=== PATIENT | female | born 1950 | race Caucasian/White ===

== ENCOUNTER 2023-03-12 09:45 | Outpatient (OUT) | payer MEDICARE, SELFPAY ==
[2023-03-12 10:38] LABS: Carbon Dioxide 24.4 mmol/L (21.0-32.0); Chloride 109 mmol/L (98-107); Estimated GFR (African America >60 (>=60); Estimated GFR (Non-African Ame 59 (>=60); Glucose 93 mg/dL (74-106); Potassium 4.4 mmol/L (3.5-5.1); Sodium 143 mmol/L (136-145)
== END 2023-03-12 09:46 | disposition home or self-care (01) ==
LOC: LAB 09:50
PROVIDERS: PCP Family Medicine; Visit Provider Nurse Practitioner
DX: I50.22 Chronic systolic (congestive) heart failure (principal)
CPT/HCPCS: 36415; 80048

== ENCOUNTER 2023-04-07 09:56 | Emergency (ER) | payer MEDICARE, SELFPAY ==
[2023-04-07 09:58] VITALS: BP 123/63; PULSE 64; RESP 16; TEMP 36.6; O2SAT 92; BMI 20.2
--- NOTE | 2023-04-07 09:59 | ED_ITS ---
HPI - General Adult General Chief complaint: Extremity Injury, Lower Stated complaint: FALL Time Seen by Provider: 04/07/23 09:59 History of Present Illness HPI narrative: Patient presents to the emergency department complaining of right hip pain. Patient states she fell yesterday morning down the last step. She did hit the back of her head to the right side of her face and was able to get up after 30 minutes. She states she is having difficulty bearing weight because of pain to the right hip. She denies any loss of conscious. She denies any paresthesias, or weakness. She denies any neck pain. She denies any nausea, vomiting, diarrhea, constipation, or abdominal pain. She denies any flank pain, hematuria, dysuria. She denies any other injury. Related Data Home Medications Medication Instructions Recorded Confirmed aspirin 81 mg chewable tablet 1 tab PO DAILY 04/07/23 04/07/23 atorvastatin 80 mg tablet 80 mg PO DAILY 04/07/23 04/07/23 carvedilol 12.5 mg tablet 12.5 mg PO BID 04/07/23 04/07/23 fluticasone fur. 100 mcg-umeclid 1 inh inhalation DAILY 04/07/23 04/07/23 62.5 mcg-vilant 25 mcg inhalat.powder (Trelegy Ellipta) furosemide 20 mg tablet 20 mg PO DAILY 04/07/23 04/07/23 ipratropium bromide 21 mcg (0.03 2 spray intranasal BID 04/07/23 04/07/23 %) nasal spray levothyroxine 100 mcg tablet 100 mcg PO DAILY 04/07/23 04/07/23 lisinopril 20 mg tablet 20 mg PO DAILY 04/07/23 04/07/23 pantoprazole 40 mg tablet,delayed 40 mg PO DAILY 04/07/23 04/07/23 release potassium chloride 10 mEq 10 meq PO DAILY 04/07/23 04/07/23 tablet,extended release prednisolone acetate 1 % eye 1 drp ophthalmic (eye) DAILY 04/07/23 04/07/23 drops,suspension sertraline 100 mg tablet 100 mg PO DAILY 04/07/23 04/07/23 spironolactone 25 mg tablet 25 mg PO DAILY 04/07/23 04/07/23 tizanidine 4 mg tablet 4 mg PO Q8H PRN muscle spasticity 04/07/23 04/07/23 Previous Rx's Medication Instructions Recorded ciprofloxacin HCl 500 mg tablet 500 mg PO BID #20 tabs 04/07/23 (Cipro) hydrocodone 5 mg-acetaminophen 325 1 tab PO Q6H PRN pain 5 days #20 04/07/23 mg tablet tabs metronidazole 500 mg tablet 500 mg PO BID 14 days #28 tabs 04/07/23 Allergies Allergy/AdvReac Type Severity Reaction Status Date / Time tetanus and diphtheria Allergy Intermediate Verified 04/07/23 10:10 toxoids Review of Systems ROS Status of ROS 10 or more systems reviewed and unremarkable except as noted in history and below [facility] Medical History (Updated 04/07/23 @ 13:33 by Jamila Tristan MD) Surgical History (Updated 04/07/23 @ 10:16 by Thelma Murray) Social History Smoking status: Current every day smoker Exam Narrative Exam Narrative: Nurses notes and vital signs reviewed and patient is not hypoxic. General: Nontoxic, Chronically ill, and in no apparent distress. Skin: Warm, dry, no pallor noted. No Rash Head: Normocephalic, Right occipital area pinpoint laceration, non suturable, no step-offs. Neck: Supple, non-tender. Eye: Pupils are equal, round and EOMI. No scleral icterus. Ears, Nose, Mouth, and Throat: TM clear, No hemotympanum,no posterior oropharynx erythema or nasal mucosal hypertrophy, uvula is mid-line Oral mucosa is moist. Right jaw 2 cm abrasion. There are no step-offs. No malocclusion. No loose dentition. Cardiovascular: Regular Rate and Rhythm without murmur, gallop or rub. Respiratory: No accessory muscle use or respiratory distress. Lungs are clear to auscultation, no wheezing, rales or rhonchi Chest Wall: no tenderness Back: No midline thoracic or lumbar vertebral tenderness. No CVA tenderness Musculoskeletal: moderate palpation to the left anterior posterior hip, no ecchymosis, DP+2, TP+2, capillary refill is brisk. ROM limited by pain, no calf or popliteal tenderness, no lower extremity edema/swelling GI: Abdomen is soft, non-distended. Normal bowel sounds. No tenderness to palpation. No rebound, guarding, or rigidity noted. Neurological: A&O x4. No cranial nerve dysfunction observed. No truncal ataxia. Moves all extremities. Sensation intact. Psychiatric: Cooperative and interactive. Normal mood and affect. Constitutional Vital Signs, click to edit/add: Last Vital Signs Temp 97.9 F 04/07/23 09:58 Pulse 64 04/07/23 09:58 Resp 16 04/07/23 09:58 BP 123/63 04/07/23 09:58 Pulse Ox 92 L 04/07/23 09:58 O2 Del Method Room Air 04/07/23 09:58 Course Vital Signs Vital signs: Vital Signs Temperature 97.9 F 04/07/23 09:58 Pulse Rate 64 04/07/23 09:58 Respiratory Rate 16 04/07/23 09:58 Blood Pressure 123/63 04/07/23 09:58 Pulse Oximetry 92 L 04/07/23 09:58 Oxygen Delivery Method Room Air 04/07/23 09:58 Temperature 97.9 F 04/07/23 09:58 Pulse Rate 64 04/07/23 09:58 Respiratory Rate 16 04/07/23 09:58 Blood Pressure 123/63 04/07/23 09:58 Pulse Oximetry 92 L 04/07/23 09:58 Oxygen Delivery Method Room Air 04/07/23 09:58 Medical Decision Making MDM Narrative Medical decision making narrative: Patient was given IV fluids, and morphine. This helped her pain. Lab studies were done. Patient's hemoglobin is stable. CT scan abdomen and pelvis shows fracture of pubic my, nondisplaced. Patient also has diverticulitis. The patient was discussed with Dr. Davis who is the orthopedic surgeon neonatal intensive care unit nurse who advised the patient can be weightbearing as tolerated with a walker and pain control. He follow-up with him as an outpatient next week.The patient was given [place] for pain she has tolerated before. The patient was treated with Cipro and Flagyl by mouth for CT scan findings of diverticulitis. The patient is nontoxic, abdomen is benign and nonsurgical. She did not even complain of abdominal pain was an incidental finding. At this time the patient is without objective evidence of an acute process requiring hospitalization or inpatient management. The patient has remained hemodynamically stable. No additional indication for emergent studies at this time. I answered all questions. Discussed discharge instructions including standard anticipatory guidance and what should prompt a return to the emergency department, including if they get worse are not getting better or develops any new or concerning symptoms. I've given them specific time frame in which to follow-up, and who to follow-up with. The patient demonstrates understanding. Patient is nontoxic and stable for discharge with outpatient follow-up. This note was created with the assistance of a speech recognition program. Although the intention is to generate documents that actually reflects the content of the visit, no guarantees can be provided that every mistake has been identified and corrected by editing. Lab Data Lab results reviewed: Yes I reviewed the patient's lab results Labs: Lab Results 04/07/23 Range/Units 10:50 WBC 9.3 (4.0-11.0) 10^3/uL RBC 3.77 L (4.20-5.40) 10^6/uL Hgb 10.7 L (12.0-16.0) g/dL Hct 32.2 L (36.0-48.0) % MCV 85.4 (81.0-99.0) fL MCH 28.4 (26.7-34.0) pg MCHC 33.2 (29.9-35.2) g/dL RDW 16.7 H (11.0-15.0) % Plt Count 200 (150-450) 10^3/uL MPV 11.6 (9.5-13.5) fL Neut % (Auto) 77.9 H (43.0-75.0) % Lymph % (Auto) 15.3 L (20.5-60.0) % [place] % (Auto) 5.8 (1.7-12.0) % Eos % (Auto) 0.3 L (0.9-7.0) % Baso % (Auto) 0.3 (0.2-2.0) % Neut # (Auto) 7.2 H (1.4-6.5) 10^3/uL Lymph # (Auto) 1.4 (1.2-3.8) 10^3/uL [place] # (Auto) 0.5 (0.3-0.8) 10^3/uL Eos # (Auto) 0.0 (0.0-0.7) 10^3/uL Baso # (Auto) 0.0 (0.0-0.1) 10^3/uL Abs Immat Gran (auto) 0.04 H (0.00-0.03) 10^3/uL Imm/Tot Granulo (auto) 0.4 (0.0-0.5) % Sodium 140 (136-145) mmol/L Potassium 3.3 L (3.5-5.1) mmol/L Chloride 103 (98-107) mmol/L Carbon Dioxide 27.3 (21.0-32.0) mmol/L Anion Gap 13.0 BUN 20.0 H (7.0-18.0) mg/dL Creatinine 1.05 H (0.55-1.02) mg/dL Est GFR ( Amer) >60 (>=60) Est GFR (Non-Af Amer) 51 L (>=60) BUN/Creatinine Ratio 19.0 Glucose 109 H (74-106) mg/dL Calcium 9.7 (8.5-10.1) mg/dL Total Bilirubin 1.0 (0.2-1.0) mg/dL AST 27 (15-37) U/L ALT 34 (14-59) U/L Alkaline Phosphatase 92 (46-116) U/L Total Protein 6.8 (6.4-8.2) g/dL Albumin 3.4 (3.4-5.0) g/dL Globulin 3.4 g/dL Albumin/Globulin Ratio 1.0 Discharge Plan Discharge Chief Complaint: Extremity Injury, Lower Clinical Impression: Fracture of pubic ramus, Diverticulitis, Abrasion Patient Disposition: Home, Self-Care Time of Disposition Decision: 13:33 Condition: Good Mode of Transportation: Private Vehicle Prescriptions / Home Meds: New ciprofloxacin HCl [Cipro] 500 mg tablet 500 mg PO BID Qty: 20 0RF metronidazole 500 mg tablet 500 mg PO BID 14 Days Qty: 28 0RF hydrocodone-acetaminophen 5-325 mg tablet 1 tab PO Q6H PRN (Reason: pain) 5 Days Qty: 20 0RF No Action aspirin 81 mg tablet,chewable 1 tab PO DAILY atorvastatin 80 mg tablet 80 mg PO DAILY carvedilol 12.5 mg tablet 12.5 mg PO BID Trelegy Ellipta 100-62.5-25 mcg blister with device 1 inh INHALATION DAILY furosemide 20 mg tablet 20 mg PO DAILY ipratropium bromide 21 mcg (0.03 %) spray,non-aerosol 2 spray INTRANASAL BID levothyroxine 100 mcg tablet 100 mcg PO DAILY lisinopril 20 mg tablet 20 mg PO DAILY pantoprazole 40 mg tablet,delayed release (DR/EC) 40 mg PO DAILY potassium chloride 10 mEq tablet extended release 10 meq PO DAILY prednisolone acetate 1 % drops,suspension 1 drp OPHTHALMIC (EYE) DAILY sertraline 100 mg tablet 100 mg PO DAILY spironolactone 25 mg tablet 25 mg PO DAILY tizanidine 4 mg tablet 4 mg PO Q8H PRN (Reason: muscle spasticity) Instructions: Diverticulitis (ED), Pelvic Fracture (ED) Stand Alone Forms: Portal Instructions Referrals: Jered Riojas MD [Primary Care Provider] - 1 week JON ARDON [Physician] - 1 week Discharge Date/Time: 04/07/23 14:08
--- NOTE | 2023-04-07 10:12 | XR_ITS ---
The [address] [address] Patient Name: DAREK HINOJOSA MRN: [id number] date: 1950 Sex: F Assigned Patient Location: ER Current Patient Location: ER Accession/Order Number: [id number] Exam Date: 04/07/2023 10:40 Report Date: 04/07/2023 11:19 At the request of: AARON FONG Procedure: XR hip RT min 2V EXAM: XR hip RT min 2V HISTORY: pain, fall COMPARISON: None. TECHNIQUE: 2 views of the right hip FINDINGS: There is moderate right hip osteoarthritis. No acute fracture or dissection. The soft tissue is unremarkable. XR/XR hip RT min 2V IMPRESSION: No acute process. Electronically authenticated by: JEROD RODRIGUEZ Date: 04/07/2023 11:19
[2023-04-07 10:58] LABS: Basophils Percent Auto 0.3 % (0.2-2.0); Eosinophils Percent Auto 0.3 % (0.9-7.0); Hematocrit 32.2 % (36.0-48.0); Hemoglobin 10.7 g/dL (12.0-16.0); Immature Granulocytes Abs Auto 0.04 10^3/uL (0.00-0.03); Immature Granulocytes Pct Auto 0.4 % (0.0-0.5); Lymphocytes Absolute Auto 1.4 10^3/uL (1.2-3.8); Lymphocytes Percent Auto 15.3 % (20.5-60.0); Mean Corpuscular HGB Conc 33.2 g/dL (29.9-35.2); Mean Corpuscular Hemoglobin 28.4 pg (26.7-34.0); Mean Corpuscular Volume 85.4 fL (81.0-99.0); Mean Platelet Volume 11.6 fL (9.5-13.5); Monocytes Absolute Auto 0.5 10^3/uL (0.3-0.8); Monocytes Percent Auto 5.8 % (1.7-12.0); Neutrophils Absolute Auto 7.2 10^3/uL (1.4-6.5); Neutrophils Percent Auto 77.9 % (43.0-75.0); Platelet Count 200 10^3/uL (150-450); Red Blood Count 3.77 10^6/uL (4.20-5.40); Red Cell Distribution Width 16.7 % (11.0-15.0); White Blood Count 9.3 10^3/uL (4.0-11.0)
--- NOTE | 2023-04-07 11:23 | CT_ITS ---
[address] [address] Patient Name: DAREK HINOJOSA MRN: [id number] date: 1950 Sex: F Assigned Patient Location: ER Current Patient Location: ER Accession/Order Number: [id number] Exam Date: 04/07/2023 11:35 Report Date: 04/07/2023 12:14 At the request of: AARON FONG Procedure: CT abdomen pelvis wo con EXAMINATION: CT abdomen pelvis wo con, 04/07/2023 11:35 AM EDT HISTORY: Right hip pain, fall, unable to bear weight COMPARISON: 01/09/2020 TECHNIQUE: CT scan of the abdomen and pelvis was performed without IV contrast. CT dose reduction technique was used, including Automated Exposure Control. FINDINGS: LOWER CHEST: There is bibasilar subsegmental atelectasis. LIVER: Unremarkable. GALLBLADDER AND BILIARY SYSTEM: Status post cholecystectomy. The common bile duct measures up to 9 mm. No intrahepatic biliary ductal dilatation.. SPLEEN: Unremarkable. PANCREAS: Unremarkable. ADRENAL GLANDS: There is a 1.6 x 1.0 cm indeterminate right adrenal nodule. 1.5 x 1.0 cm left adrenal nodule which is indeterminate. There is a 1 cm left adrenal nodule which measures less than 10 Hounsfield units and has imaging features of an adenoma. KIDNEYS AND URETERS: No nephrolithiasis or hydronephrosis. No ureteral calculus. BLADDER: Unremarkable. GASTROINTESTINAL TRACT: There is colonic diverticulosis with focal wall thickening and inflammatory changes involving the mid descending colon compatible with acute diverticulitis. No extraluminal air or fluid collections. The appendix is not clearly identified. VASCULATURE: Atherosclerotic calcification of the abdominal aorta without aneurysmal dilatation. RETROPERITONEUM: No lymphadenopathy. PERITONEUM/MESENTERY: No abdominal ascites. No free air. PELVIS: No pelvic ascites or lymphadenopathy. BODY WALL: There is a small right paracentral ventral hernia containing a nonobstructed portion of small bowel. BONES: There is an acute fracture involving the right inferior pubic ramus in 2 locations with mild displacement. No hip fracture is seen. Dysplastic bump at the femoral head neck junctions bilaterally which can be seen with cam-type femoral acetabular impingement. Multilevel degenerative changes and extra scoliosis of the lumbar spine. Mild compression deformity of L3. CT/CT abdomen pelvis wo con IMPRESSION: 1. Acute mildly displaced fracture involving the right inferior pubic ramus in 2 locations. 2. Acute diverticulitis involving the mid descending colon. No extraluminal air or fluid collections. 3. Bilateral indeterminate adrenal nodules. These nodules appear unchanged since 01/09/2020 and likely represent adenomas. 4. Small right paracentral ventral hernia containing nonobstructed portion of small bowel. 5. Multilevel degenerative changes of the lumbar spine with dextroscoliosis. Mild compression deformity of L3. Electronically authenticated by: ABBY FRAUSTO Date: 04/07/2023 12:14
[2023-04-07 11:50] LABS: Alanine Aminotransferase 34 U/L (14-59); Albumin Level 3.4 g/dL (3.4-5.0); Alkaline Phosphatase 92 U/L (46-116); Aspartate Amino Transferase 27 U/L (15-37); Calcium 9.7 mg/dL (8.5-10.1); Carbon Dioxide 27.3 mmol/L (21.0-32.0); Chloride 103 mmol/L (98-107); Estimated GFR (African America >60 (>=60); Estimated GFR (Non-African Ame 51 (>=60); Globulin 3.4 g/dL; Glucose 109 mg/dL (74-106); Potassium 3.3 mmol/L (3.5-5.1); Total Protein 6.8 g/dL (6.4-8.2)
[2023-04-07 11:51] LABS: Sodium 140 mmol/L (136-145)
== END 2023-04-07 14:08 | disposition home or self-care (01) ==
PROVIDERS: Emergency Provider Emergency Medicine; PCP Family Medicine
DX: S32.591A Other specified fracture of right pubis, initial encounter for closed fracture (principal); S00.81XA Abrasion of other part of head, initial encounter; W10.9XXA Fall (on) (from) unspecified stairs and steps, initial encounter; Z79.82 Long term (current) use of aspirin; Z79.899 Other long term (current) drug therapy; Z79.890 Hormone replacement therapy; F17.210 Nicotine dependence, cigarettes, uncomplicated
CPT/HCPCS: 36415; 73502; 74176; 80053; 85025; 99285

== ENCOUNTER 2023-07-02 13:51 | Outpatient (OUT) | payer MEDICARE, SELFPAY ==
--- NOTE | 2023-07-02 | ECG_ITS ---
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
--- NOTE | 2023-07-02 16:21 | CA_ITS ---
Patient: DAREK HINOJOSA Exam Date: 07/02/2023 : 1950 Gender:F Ordering : DR JAMES CARVALHO M.D. Admission #: [id number] Family : Jered Riojas . Order #: [id number] CLICK HERE TO VIEW EXAM ECHOCARDIOGRAM REPORT PROCEDURE: CA ECHO DOPPLER COMPLETE INDICATIONS: Chronic systolic heart failure COMPARISON: None. DESCRIPTION: COMPLETE ECHOCARDIOGRAM Real-time transthoracic echocardiography with 2D, M-mode, spectral and color flow Doppler performed. QUALITY: Technical quality was good. LEFT VENTRICLE: Mild dilatation. Mild concentric left ventricular hypertrophy. LV EF: Global left ventricular systolic function is difficult to assess due to underlying rhythm; ejection fraction is estimated to be 50-55%. Abnormal septal motion; may be related to underlying bundle branch block. DIASTOLIC: Not adequately assessed due to heart rhythm. ATRIAL SEPTUM: Inadequately seen. LEFT ATRIUM: Severe dilatation. RIGHT ATRIUM: Mild dilatation. RIGHT VENTRICLE: Mild dilatation. Normal right ventricular systolic function. TRICUSPID VALVE: Normal mobility and thickness. Mild to moderate regurgitation. Moderate pulmonary hypertension. RVSP 58mmHg MITRAL VALVE: Mildly thickened with normal mobility. No evidence of mitral valve stenosis. Mild mitral annular calcification. Moderate mitral regurgitation. AORTIC VALVE: Bio-Prosthetic valve appears well seated in the aortic position with abnormal Doppler flow. DVI 0.24, Vmax 3.8m/s, Mean gradient 31mmHg.No aortic regurgitation. AORTIC ROOT: Normal diameter and appearance. PULMONIC VALVE: Normal thickness and mobility. No stenosis. Mild regurgitation. PERICARDIUM: No evidence of pericardial effusion. IVC: Collapses with inspirations. Mild dilatation at 2.2cm CONCLUSION: 1. Global left ventricular systolic function is difficult to assess but appears preserved 2. Mildly increased left ventricular wall thickness 3. Biatrial enlargement 4. The right ventricle is mildly dilated with normal systolic function 5. Mild to moderate tricuspid regurgitation 6. Moderately elevated right ventricular systolic pressure; RVSP 58 mmHg 7. Moderate mitral regurgitation 8. 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 Mild pulmonary regurgitation The patient's rhythm was irregular throughout; the clinic provided instructions to the patient for follow-up. Adult Echocardiography Procedure Report Left Ventricle LVEDD (3.7 - 5.6 cm): 5.55 cm LVESD (2.2 - 4.0 cm): 4.16 cm LVIVS thickness (0.6 - 1.2 cm): 1.16 cm LVPW thickness (0.5 - 1.0 cm): 1.27 cm e': 0.13 m/s E - e': 7.50 LVOT Max Gradient: 3.37 mm[Hg], 3.32 mm[Hg] LVOT Area (cm2): 0.91 m/s Peak Velocity (LVOT): 0.92 m/s, 0.91 m/s Mean Velocity (LVOT): 0.63 m/s LVOT Diameter 2.24 cm Left Ventricular Ejection Fraction: 51.85 % Left Atrium LA Volume Index (2D A2C): 92.76 ml/m2 Left Atrium Systolic Dimension: 5.03 cm Mitral Valve MV E to A Ratio: 84.92 Mitral Valve A-Wave Peak Velocity: 0.01 m/s Mitral Valve E-Wave Peak Velocity: 0.96 m/s Right Ventricle RV Internal Diastolic Dimension: 4.82 cm Aorta AO Root Diam: 3.13 cm Ascending Ao Diam: 2.67 cm Aortic Valve AoV Area (Peak Nathaniel): 0.95 cm2, 0.87 cm2, 0.94 cm2, 1.15 cm2, 1.15 cm2, 1.15 cm2 AoV Area (VTI): 0.97 cm2, 0.89 cm2, 0.94 cm2 Peak Velocity(Antegrade Flow): 4.12 m/s, 3.80 m/s, 3.42 m/s, 3.78 m/s, 3.15 m/s, 3.11 m/s Peak Gradient(Antegrade Flow): 67.88 mm[Hg], 57.89 mm[Hg], 46.92 mm[Hg], 57.14 mm[Hg], 39.57 mm[Hg], 38.59 mm[Hg] Mean Velocity(Antegrade Flow): 2.83 m/s, 2.42 m/s, 2.44 m/s, 2.58 m/s Mean Gradient(Antegrade Flow): 36.31 mm[Hg], 26.71 mm[Hg], 26.44 mm[Hg], 30.58 mm[Hg] Velocity Time Integral: 98.07 cm, 90.55 cm, 81.41 cm, 86.28 cm Tricuspid Valve Peak Velocity (Regurgitant Flow): 3.51 m/s, 3.15 m/s, 3.09 m/s, 3.41 m/s Pulmonic Valve Mean Gradient: 3.20 mm[Hg], 4.02 mm[Hg] Mean Velocity: 0.84 m/s, 0.97 m/s Peak Velocity: 1.30 m/s, 0.75 m/s Peak Gradient: 2.27 mm[Hg], 6.78 mm[Hg], 6.78 mm[Hg] Right Atrium Right Atrium Systolic Pressure: 60.56 ml, 60.56 ml Dictated by: James Carvalho M.D. on 07/03/2023 at 09:32 Approved by: James Carvalho M.D. on 07/03/2023 at 09:37
== END 2023-07-02 13:52 | disposition home or self-care (01) ==
LOC: CARD 13:51
PROVIDERS: PCP Family Medicine; Visit Provider Internal Medicine Interventional Cardiology
DX: I50.22 Chronic systolic (congestive) heart failure (principal); S32.599A Other specified fracture of unspecified pubis, initial encounter for closed fracture; M81.0 Age-related osteoporosis without current pathological fracture; F17.219 Nicotine dependence, cigarettes, with unspecified nicotine-induced disorders; Z12.2 Encounter for screening for malignant neoplasm of respiratory organs
CPT/HCPCS: 71271; 77080; 93005; 93306

== ENCOUNTER 2023-07-02 15:16 | Outpatient (OUT) | payer MEDICARE, SELFPAY ==
--- NOTE | 2023-07-02 15:29 | CT_ITS ---
[address] [address] Patient Name: DAREK HINOJOSA MRN: [id number] date: 1950 Sex: F Assigned Patient Location: CT Current Patient Location: Accession/Order Number: [id number] Exam Date: 07/02/2023 15:47 Report Date: 07/03/2023 00:57 At the request of: YADIEL CORDOBA Procedure: CT lung screening low-dose EXAMINATION: CT lung screening low-dose HISTORY: Nicotine Dependence F17.219 COMPARISON: CT LUNG CANCER SCREENING 06/19/2022 TECHNIQUE: Axial, Coronal, and Sagittal images were created without the administration of IV contrast material. Dose reduction techniques were achieved by using automated exposure control and/or adjustment of mA and/or kV according to patient size and/or use of iterative reconstruction technique. FINDINGS: LUNGS: Moderate marked emphysematous changes. Patchy opacities and likely areas of air trapping scattered throughout the lungs. Mild bronchiectasis as well as bronchial wall thickening/bronchiolitis. PLEURA: No mass, effusion, or pneumothorax. VASCULATURE: No abnormality. LASHA: No mass or pathologic adenopathy. MEDIASTINUM: No mass or pathologic adenopathy. CARDIAC: Mild cardiomegaly and atherosclerotic coronary artery disease. No pericardial effusion. AORTA: Aortic valve replacement. No aneurysm. CHEST WALL: No mass or axillary adenopathy BONES: No bone lesion or fracture. LIMITED ABDOMEN: No suspicious findings. Limited images of the upper abdomen. OTHER: Negative. CT/CT lung screening low-dose IMPRESSION: 1. Lung-RADS Category 3- Probably benign. Probably benign finding(s)- short term follow up suggested; includes nodules with a low likelihood of becoming a clinically active cancer. Six month LDCT. Electronically authenticated by: VASU EVANS Date: 07/03/2023 00:57
== END 2023-07-02 15:17 | disposition home or self-care (01) ==
LOC: CT 15:17
PROVIDERS: PCP Family Medicine; Visit Provider Internal Medicine
DX: F17.219 Nicotine dependence, cigarettes, with unspecified nicotine-induced disorders (principal); Z12.2 Encounter for screening for malignant neoplasm of respiratory organs
CPT/HCPCS: 71271

== ENCOUNTER 2023-07-02 15:18 | Outpatient (OUT) | payer MEDICARE, SELFPAY ==
--- NOTE | 2023-07-02 15:28 | XR_ITS ---
The [address] [address] Patient Name: DAREK HINOJOSA MRN: [id number] date: 1950 Sex: F Assigned Patient Location: [facility] Current Patient Location: Accession/Order Number: [id number] Exam Date: 07/02/2023 15:47 Report Date: 07/03/2023 00:21 At the request of: MARY BEAUCHAMP Procedure: XR DEXA axial skeleton EXAMINATION: XR DEXA axial skeleton HISTORY: Other Specified Fracture Of Pubis COMPARISON: No relevant comparison available. TECHNIQUE: Dual-energy X-ray absorptiometry (DXA) was performed. FINDINGS: SPINE ANALYSIS: Average bone mineral density is 1.097 g/cm2. T-score (standard deviation relative to young adult mean): -0.7 . HIP ANALYSIS: Lowest bone mineral density is within the left femoral trochanter, 0.450 g/cm2. T-score (standard deviation relative to young adult mean): -3.5 . XR/XR DEXA axial skeleton IMPRESSION: [employer] Classification: Osteoporosis - High Fracture Risk Electronically authenticated by: VASU EVANS Date: 07/03/2023 00:21
== END 2023-07-02 15:19 | disposition home or self-care (01) ==
LOC: RAD 15:18
PROVIDERS: PCP Family Medicine; Visit Provider Nurse Practitioner Family
DX: S32.599A Other specified fracture of unspecified pubis, initial encounter for closed fracture (principal); M81.0 Age-related osteoporosis without current pathological fracture
CPT/HCPCS: 77080

== ENCOUNTER 2023-08-17 15:40 | Outpatient (OUT) | payer MEDICARE, SELFPAY ==
[2023-08-17 16:44] LABS: Anion Gap 11.7; BUN Creatinine Ratio 16.4; Calcium 9.8 mg/dL (8.5-10.1); Carbon Dioxide 27.5 mmol/L (21.0-32.0); Chloride 99 mmol/L (98-107); Estimated GFR (African America 59 (>=60); Estimated GFR (Non-African Ame 49 (>=60); Glucose 99 mg/dL (74-106); Potassium 3.2 mmol/L (3.5-5.1); Sodium 135 mmol/L (136-145)
== END 2023-08-17 15:41 | disposition home or self-care (01) ==
PROVIDERS: PCP Family Medicine; Visit Provider Internal Medicine Interventional Cardiology
DX: I50.40 Unspecified combined systolic (congestive) and diastolic (congestive) heart failure (principal)
CPT/HCPCS: 36415; 80048

== ENCOUNTER 2023-08-28 13:34 | Outpatient (OUT) | payer MEDICARE, SELFPAY | END 2023-08-28 13:35 | disposition home or self-care (01) | LOC: PST 13:34 | PROVIDERS: PCP Family Medicine; Visit Provider Surgery | DX: Z01.818 Encounter for other preprocedural examination (principal); K22.70 Barrett's esophagus without dysplasia; Z80.0 Family history of malignant neoplasm of digestive organs ==

== ENCOUNTER 2023-09-05 07:20 | Day surgery (SDC) | payer MEDICARE, SELFPAY ==
--- OUTSIDE RECORDS SUMMARY | 2023-09-05 07:22 | XMS_ITS | CCD ---
Author Name Unknown Address [address] [place] [address] [facility] Care Team Providers Care Hot Box Spotter Name Role Phone DUSTIN MCMAHON K Unavailable Unavailable SALOME, DUSTIN K Unavailable Unavailable HOY, KAYLEIGH M Unavailable Unavailable SALOME, DUSTIN K Unavailable Unavailable SALOME, DUSTIN K Unavailable Unavailable KAYLEIGH GAY M Unavailable Unavailable PHYSICIAN, DEFAULT Unavailable Unavailable PHYSICIAN, DEFAULT Unavailable Unavailable OLGA PARISI I Referring Unavailable KAYLEIGH GAY M Primary Care Unavailable ESTEBAN LÓPEZ HLia Admitting Unavailable ESTEBAN LÓPEZ HLia Attending Unavailable KAYLEIGH GAY M Primary Care Unavailable Kayleigh Gay MD Primary Care Provider [phone] Kayleigh Gay MD Unavailable KATIE V, ALEKSANDAR Referring Unavailable KATIE V, ALEKSANDAR Attending Unavailable KAYLEIGH GAY M Primary Care Unavailable KATIE V, ALEKSANDAR Referring Unavailable KELLY GAYLAS M Primary Care Unavailable KATIE V, ALEKSANDAR Admitting Unavailable KATIE V, ALEKSANDAR Referring Unavailable KATIE V, ALEKSANDAR Attending Unavailable KAYLEIGH GAY M Primary Care Unavailable KATIE V, ALEKSANDAR Referring Unavailable KAYLEIGH GAY M Primary Care Unavailable KATIE V, ALEKSANDAR Referring Unavailable DEIDRA KAYLEIGH M Primary Care Unavailable DEIDRA ., DR VICTOR Attending Unavailable HOY ., DR VICTOR Consulting Unavailable HOY ., DR VICTOR Primary Care Unavailable HOY ., DR VICTOR Admitting Unavailable HOY ., DR VICTOR Primary Care Unavailable HOY ., DR VICTOR Admitting Unavailable HOY ., DR VICTOR Attending Unavailable HOY ., DR VICTOR Consulting Unavailable HOY ., DR VICTOR Primary Care Unavailable HOY ., DR VICTOR Admitting Unavailable HOY ., DR VICTOR Attending Unavailable HOY ., DR VICTOR Consulting Unavailable ADRI, HAWA Consulting Unavailable ADRI, HAWA Admitting Unavailable HOY ., DR VICTOR Primary Care Unavailable ADRI, HAWA Attending Unavailable HOY ., DR VICTOR Primary Care Unavailable HOY ., DR VICTOR Admitting Unavailable HOY ., DR VICTOR Attending Unavailable HOY ., DR VICTOR Consulting Unavailable SAMSA ., YADIEL Admitting Unavailable SAMSA ., YADIEL Attending Unavailable HOY ., DR VICTOR Primary Care Unavailable ZIEBER, DR VASU Kemp Consulting Unavailable SAMSA ., YADIEL Consulting Unavailable HOY ., DR VICTOR Primary Care Unavailable HOY ., DR VICTOR Admitting Unavailable HOY ., DR VICTOR Attending Unavailable HOY ., DR VICTOR Consulting Unavailable ELTAHAWY, DR RAMIREZ Admitting Unavailable ELTAHAWY, DR RAMIREZ Attending Unavailable HOY ., DR VICTOR Primary Care Unavailable ELTAHAWY, DR RAMIREZ Consulting Unavailable ELTAHAWY, EHAB Attending Unavailable SANAULLAH, MAHAMED Referring Unavailable SANAULLAH, MAHAMED Referring Unavailable IVANIA, HANI Referring Unavailable ELTAHAWY, EHAB Referring Unavailable SHEILA, WHITNEY Admitting Unavailable IVANIA, HANI Attending Unavailable IVANIA, HANI Referring Unavailable SHEILA, WHITNEY Referring Unavailable ELTAHAWY, EHAB Attending Unavailable ADRI, HAWA Attending Unavailable ADRI, HAWA Attending Unavailable ELTAHAWY, EHAB Attending Unavailable Allergies Allergy Classification Reported Allergen(s) Allergy Type Date of Onset Reaction(s) Facility (7 sources) Allopurinol; Translations: [ALLOPURINOL] Drug Allergy 5 Intolerance [facility] (6 sources) diphtheria toxoid vaccine, inactivated / tetanus toxoid vaccine, inactivated; Translations: [TETANUS AND DIPHTHER. TOX (PF)] Drug Allergy 8 Intolerance [facility] (5 sources) Isosorbide; Translations: [ISOSORBIDE MONONITRATE] Drug Allergy 6 Intolerance [facility] (5 sources) tetanus toxoid vaccine, inactivated; Translations: [TETANUS TOXOID ADSORBED] Drug Allergy 5 Other: See Comments [facility] (1 source) Isosorbide Dinitrate; Translations: [ISOSORBIDE DINITRATE] Drug Allergy 6 [facility] (1 source) Spironolactone; Translations: [SPIRONOLACTONE ] Drug Allergy 3 [facility] (1 source) TETANUS VACCINES AND TOXOID; Translations: [TETANUS VACCINES AND TOXOID] Propensity to adverse reactions to drug (disorder) 5 [facility] Medications Current Medications Medication Drug Class(es) Dates Sig (Normalized) Sig (Original) benoxinate hydrochloride 4 mg/ml / fluorescein sodium 2.5 mg/ml ophthalmic solution (1 source) Diagnostic Dye Start: 08-15-2022 End: 08-16-2022 fluorescein-benoxi franca 0.25-0.4 % 1 Drop (FLURESS) phenylephrine hydrochloride 25 mg/ml ophthalmic solution (1 source) alpha-1 Adrenergic Agonist Start: 08-15-2022 End: 08-16-2022 PHENYLephrine 2.5 % 1 Drop (AK-DILATE, MENA-SYNEPHRINE) proparacaine hydrochloride 5 mg/ml ophthalmic solution (1 source) Local Anesthetic Start: 08-15-2022 End: 08-16-2022 proparacaine 0.5 % 1 Drop (ALCAINE) tropicamide 10 mg/ml ophthalmic solution (1 source) Anticholinergic Start: 08-15-2022 End: 08-16-2022 tropicamide 1 % 1 Drop (MYDRIACYL) Completed/Discontinued Medications Medication Drug Class(es) Dates Sig (Normalized) Sig (Original) aspirin 81 mg chewable tablet (4 sources) Platelet Aggregation Inhibitor, Nonsteroidal Anti-inflammatory Drug Start: 0 take 1 tablet by mouth once daily aspirin 81 mg chewable tablet CHEW AND SWALLOW 1 TABLET BY MOUTH ONCE DAILY. 90 tablet 0 01/23/2020 Active Comment on above: CHEW AND SWALLOW 1 T ABLET BY MOUTH ONCE DAILY. atorvastatin 40 mg oral tablet (4 sources) HMG-CoA Reductase Inhibitor Start: 8 atorvastatin (LIPITOR) 40 mg tablet Take by mouth q 24 HR. 0 03/20/2018 Active Comment on above: Take by mouth q 24 H R. carvedilol 12.5 mg oral tablet (4 sources) alpha-Adrenergic Jose, beta-Adrenergic Jose take 1 tablet by mouth twice daily carvedilol (COREG) 12.5 mg tablet carvedilol 12.5 mg tablet Take 1 tablet twice a day by oral route. 0 Active Comment on above: carvedilol 12.5 mg t ablet Take 1 tablet twice a day by oral route. cholecalciferol 0.05 mg oral capsule (4 sources) Vitamin D Start: 2 take 1 capsule by mouth once daily Cholecalciferol, Vitamin D3, 50 mcg (2,000 unit) cap cholecalciferol (vitamin D3) 50 mcg (2,000 unit) capsule TAKE 1 CAPSULE BY MOUTH EVERY DAY 0 05/09/2022 Active Comment on above: cholecalciferol (vit acosta D3) 50 mcg (2,000 unit) capsule TAKE 1 CAPSULE BY MOUTH EVERY DAY 30 actuat fluticasone furoate 0.1 mg/actuat / umeclidinium 0.0625 mg/actuat / vilanterol 0.025 mg/actuat dry powder inhaler (4 sources) Anticholinergic, Corticosteroid, beta2-Adrenergic Agonist Start: 2 take 1 puff(s) by mouth once daily TRELEGY ELLIPTA 100-62.5-25 mcg inhalation powder INHALE 1 PUFF BY MOUTH EVERYDAY *RINSE MOUTH AFTER USE* 0 07/21/2022 Active Comment on above: INHALE 1 PUFF BY RUEL TH EVERYDAY *RINSE MOUTH AFTER USE* furosemide 20 mg oral tablet (4 sources) Loop Diuretic Start: 0 take 1 tablet by mouth once daily furosemide (LASIX) 20 mg tablet TAKE 1 TABLET BY MOUTH ONCE DAILY FOR 7 DAYS. 7 tablet 0 01/23/2020 Active Comment on above: TAKE 1 TABLET BY RUEL TH ONCE DAILY FOR 7 DAYS. ketorolac tromethamine 5 mg/ml ophthalmic solution (2 sources) Nonsteroidal Anti-inflammatory Drug, Cyclooxygenase Inhibitor Start: 1 keTORolac (ACULAR) 0.5 % ophthalmic solution USE DIRECTED BY PHYSICIAN, IN OPERATIVE EYE, BEGINNING ONE DAY AFTER SURGERY 5 mL 0 04/12/2021 Active Comment on above: USE DIRECTED BY Isacc MÉNDEZ, IN OPERATIVE EYE, BEGINNING ONE DAY AFTER SURGERY liothyronine sodium 0.005 mg oral tablet (4 sources) l-Triiodothyronine Start: 2 take 2 tablets by mouth once daily liothyronine (CYTOMEL) 5 mcg tablet Take 10 mcg by mouth once daily. 0 07/25/2022 Active Comment on above: Take 10 mcg by mouth once daily. lisinopril 20 mg oral tablet (4 sources) Angiotensin Converting Enzyme Inhibitor Start: 2 lisinopril (ZESTRIL, PRINIVIL) 20 mg tablet pantoprazole 40 mg delayed release oral tablet (4 sources) Proton Pump Inhibitor Start: 8 take 1 tablet by mouth once daily pantoprazole DR (PROTONIX) 40 mg tablet pantoprazole 40 mg tablet,delayed release TAKE 1 TABLET BY MOUTH EVERY DAY 0 03/20/2018 Active Comment on above: pantoprazole 40 mg t ablet,delayed release TAKE 1 TABLET BY MOUTH EVERY DAY microencapsulated potassium chloride 10 meq extended release oral tablet (4 sources) potassium chlori de ER (K-DUR, KLOR-CON) 10 mEq tablet q 24 HR. 0 Active Comment on above: q 24 HR. prednisoLONE acetate 10 mg/ml ophthalmic suspension (4 sources) Corticosteroid Start: 1 prednisoLONE acetate (PRED FORTE, ECONOPRED PLUS) 1 % ophthalmic suspension USE DIRECTED BY PHYSICIAN, IN OPERATIVE EYE, BEGINNING ONE DAY AFTER SURGERY 5 mL 0 04/12/2021 Active Comment on above: USE DIRECTED BY P DEV, IN OPERATIVE EYE, BEGINNING ONE DAY AFTER SURGERY sertraline 100 mg oral tablet (4 sources) Serotonin Reuptake Inhibitor take 1 tablet by mouth once daily sertraline (ZOLOFT) 100 mg tablet Take 100 mg by mouth once daily. 0 Active Comment on above: Take 100 mg by mouth once daily. tiZANidine 4 mg oral tablet (4 sources) Central alpha-2 Adrenergic Agonist Start: 8 take 1 tablet by mouth three times daily tiZANidine (ZANAFLEX) 4 mg tablet tizanidine 4 mg tablet TAKE 1 TABLET BY MOUTH THREE TIMES DAILY 0 03/20/2018 Active Comment on above: tizanidine 4 mg tabl et TAKE 1 TABLET BY MOUTH THREE TIMES DAILY Problems Active Problems Problem Classification Problem Date Documented Date Episodic/Chronic Aortic; peripheral; 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; 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] Onset: 01-09-2020 01-22-2020 Chronic Cardiac dysrhythmias (2 sources) Unspecified atrial fibrillation; Translations: [Unspecified atrial fibrillation] Onset: 07-19-2023 Chronic Cardiac dysrhythmias (4 sources) Tachycardia, unspecified; Translations: [Bradycardia, unspecified] Onset: 12-01-2022 Episodic Cataract (10 sources) After-cataract of right eye; Translations: [Other secondary cataract, right eye] Onset: 04-13-2021 Chronic Chronic obstructive pulmonary disease and bronchiectasis (5 sources) Pulmonary emphysema; Translations: [Other emphysema] Onset: 06-19-2022 10-30-2022 Chronic Complication of device; implant or graft (10 sources) Arteriosclerosis of coronary artery bypass graft; Translations: [Atherosclerosis of coronary artery bypass graft(s), unspecified, with unspecified angina pectoris] Onset: 07-19-2015 01-22-2020 Chronic Congestive heart failure; nonhypertensive (12 sources) Congestive heart failure; Translations: [Heart failure, unspecified] Onset: 07-24-2015 08-29-2021 Chronic Coronary atherosclerosis and other heart disease (10 sources) Coronary atherosclerosis; Translations: [Atherosclerotic heart disease of [place] coronary artery without angina pectoris] Onset: 06-22-2015 06-22-2015 Chronic Disorders of lipid metabolism (7 sources) Hyperlipidemia; Translations: [Hyperlipidemia, unspecified] Onset: 07-24-2015 01-22-2020 Chronic Esophageal disorders (1 source) Gastroesophageal reflux disease; Translations: [Gastro-esophageal reflux disease without esophagitis] Onset: 10-30-2022 10-30-2022 Chronic Essential hypertension (10 sources) Essential hypertension; Translations: [Essential (primary) hypertension] Onset: 06-22-2015 01-22-2020 Chronic Heart valve disorders (15 sources) Aortic incompetence, non-rheumatic ; Translations: [Nonrheumatic aortic (valve) insufficiency] Onset: 01-09-2020 01-22-2020 Chronic Hypertension with complications and secondary hypertension (5 sources) Hypertensive heart disease with heart failure; Translations: [Hypertensive heart disease without heart failure] Onset: 08-20-2022 Chronic Nutritional deficiencies (5 sources) Moderate protein energy malnutrition; Translations: [Moderate protein-calorie malnutrition] Onset: 01-11-2020 01-22-2020 Chronic Other and ill-defined heart disease (4 sources) Mild left ventricular systolic dysfunction; Translations: [Other ill-defined heart diseases] Onset: 06-22-2015 06-22-2015 Chronic Other and ill-defined heart disease (2 sources) Other ill-defined heart diseases; Translations: [Other ill-defined heart diseases] Onset: 08-09-2022 Chronic Jennifer-; endo-; and myocarditis; cardiomyopathy (except that caused by tuberculosis or sexually transmitted disease) (2 sources) Cardiomyopathy in diseases classified elsewhere; Translations: [Cardiomyopathy in diseases classified elsewhere] Onset: 01-11-2023 Chronic Retinal detachments; defects; vascular occlusion; and retinopathy (1 source) Full thickness macular hole of right eye; Translations: [Macular cyst, hole, or pseudohole, right eye] Chronic Substance-related disorders (8 sources) Tobacco smoking behavior - finding; Translations: [Nicotine dependence, unspecified, uncomplicated] Onset: 06-22-2015 08-29-2021 Chronic Thyroid disorders (4 sources) Hypothyroidism, unspecified; Translations: [HYPOTHYROIDISM UNSPECIFIED] Onset: 11-30-2022 Chronic Unclassified (1 source) LEFT EYE MACULAR HOLE / LEFT EYE MACULAR HOLE() Onset: 12-11-2017 Unclassified (1 source) MACULAR HOLE RIGHT EYE / MACULAR HOLE RIGHT EYE() Onset: 10-23-2017 Unclassified (4 sources) SUMMARY Onset: 07-24-2015 08-29-2021 Unclassified (4 sources) DISPOSITION AND FOLLOW-UP Onset: 07-24-2015 08-29-2021 Past or Other Problems Problem Classification Problem Date Documented Da te Episodic/Chronic Administrative/social admission (4 sources) Patient encounter status; Translations: [Persons encountering health services in other specified circumstances] Onset: 01-15-2020 01-23-2020 Episodic Coronary atherosclerosis and other heart disease (2 sources) Presence of aortocoronary bypass graft; Translations: [Presence of aortocoronary bypass graft] Onset: 08-09-2022 Episodic Deficiency and other anemia (1 source) Anemia, unspecified; Translations: [ANEMIA UNSPECIFIED] Onset: 06-21-2022 Episodic Diabetes mellitus without complication (1 source) Other abnormal glucose; Translations: [OTHER ABNORMAL GLUCOSE] Onset: 06-21-2022 Episodic Fluid and electrolyte disorders (4 sources) Hypervolemia; Translations: [Fluid overload, unspecified] Onset: 07-23-2015 01-22-2020 Episodic Other lower respiratory disease (1 source) Dyspnea, unspecified; Translations: [DYSPNEA UNSPECIFIED] Onset: 06-21-2022 Episodic Pleurisy; pneumothorax; pulmonary collapse (8 sources) Atelectasis; Translations: [Atelectasis] Onset: 07-21-2015 01-22-2020 Episodic Unclassified (1 source) LEFT EYE MACULAR HOLE; Translations: [LEFT EYE MACULAR HOLE] Onset: 12-11-2017 Unclassified (1 source) MACULAR HOLE RIGHT EYE; Translations: [MACULAR HOLE RIGHT EYE] Onset: 10-23-2017 Results Test Name Value Interpretation Reference Range Facility 36on 08-17-2023 36 6 weeks s/p cardioversion would be 08/31/2023. Judy at Dr. Zhang' office made aware via fax. [facility] [address] Willian henderson' office called requesting Darek Coombs 3 days prior to EGD/colonscopy scheduled on 09/05/2023. Please advise. [facility] Office Visiton 08-01-2023 Follow-up visit [id number] Darek Mejía 1950 F Date Provider Department Center 08/01/2023 Areli-OPAL [facility] Family History Problem Relation Age of Onset Coronary artery disease Father Diabetes Father Family Status - Relation Status Age at Father Level of Service:85035 [place] OFFICE/OUTPATIENT ESTABLISHED HIGH MDM 40-54 MIN [facility] 30on 07-22-2023 30 Problem: Pain - Adul t Goal: Verbalizes/displays adequate comfort level or baseline comfort level Outcome: Progressing Problem: Safety - Adult Goal: Free from fall injury Outcome: Progressing Problem: Discharge Planning Goal: Discharge to home or other facility with appropriate resources Outcome: Progressing Problem: Chronic Conditions and Co-morbidities Goal: Patient's chronic conditions and co-morbidity symptoms are monitored and maintained or improved Outcome: Progressing Problem: Cardiovascular - Adult Goal: Maintains optimal cardiac output and hemodynamic stability Outcome: Progressing Goal: Absence of cardiac dysrhythmias or at baseline Outcome: Progressing [facility] 30 The patient is Moderately Stable - Low risk of patient condition declining or worsening The patient's goals for the shift include comfort The clinical goals for the shift include VSS, safety Problem: Safety - Adult Goal: Free from fall injury Outcome: Progressing Flowsheets (Taken 07/22/2023 0000) Free from fall injury: Assess patient frequently for physical needs Identify cognitive and physical deficits and behaviors that affect risk of falls Problem: Cardiovascular - Adult Goal: Maintains optimal cardiac output and hemodynamic stability Outcome: Progressing Goal: Absence of cardiac dysrhythmias or at baseline Outcome: Progressing Normal [facility] ANTI-XA (HEPARIN LEVEL)on HEPARIN UNFRACTIONATED (U/ML) IN PPP BY CHROMOGENIC METHOD 0.17 IU/mL Low 0.3-0.7 [facility] Comment on above: Result Comment: [place] roxaban and Apixaban will interfere with the anti Xa assay used to monitor UFH and LMWH. Performed By: #### L [id number] #### [facility] ([facility]) [address] [place] [address] HEPARIN UNFRACTIONATED (U/ML) IN PPP BY CHROMOGENIC METHOD 0.21 IU/mL Low 0.3-0.7 [facility] Comment on above: Result Comment: [place] roxaban and Apixaban will interfere with the anti Xa assay used to monitor UFH and LMWH. Performed By: #### L [id number] #### [facility] ([facility]) [address] [place] [address] CBCon 07-22-2023 Erythrocyte distribution width (RBC) [Ratio] 16.5 % High 11.5-15.0 [facility] Comment on above: Performed By: #### L [id number] #### [facility] ([facility]) [address] [place] [address] ERYTHROCYTE MEAN CORPUSCULAR HEMOGLOBIN CONCENTRATION (G/DL) BY AUTOMATED 32.0 g/dL Normal 32.0-35.0 [facility] Comment on above: Performed By: #### L [id number] #### [facility] ([facility]) [address] [place] [address] Hematocrit (Bld) [Volume fraction] 29.1 % Low 36.0-48.0 [facility] Comment on above: Performed By: #### L [id number] #### [facility] ([facility]) [address] [place] [address] Hemoglobin (Bld) [Mass/Vol] 9.3 g/dL Low 12.0-15.0 [facility] Comment on above: Performed By: #### L [id number] #### [facility] ([facility]) [address] [address] MCH (RBC) [Entitic mass] 27.0 pg Normal 27.0-33.0 [facility] Comment on above: Performed By: #### L [id number] #### [facility] ([facility]) [address] [place] [address] MCV (RBC) [Entitic vol] 84.6 fL Normal 82.0-98.0 [facility] Comment on above: Performed By: #### L [id number] #### [facility] ([facility]) [address] [place] [address] PLATELETS (10*3/UL) IN BLOOD AUTOMATED COUNT 202 10*3/uL Normal 150-400 [facility] Comment on above: Performed By: #### L [id number] #### [facility] ([facility]) [address] [place] [address] RBC (Bld) [#/Vol] 3.44 10*6/uL Low 3.80-5.00 [facility] Comment on above: Performed By: #### L [id number] #### [facility] ([facility]) [address] [place] [address] WBC (Bld) [#/Vol] 6.43 10*3/uL Normal 4.00-10.60 [facility] Comment on above: Performed By: #### L [id number] #### [facility] ([facility]) [address] [place] [address] 30on 07-21-2023 30 Problem: Pain - Adul t Goal: Verbalizes/displays adequate comfort level or baseline comfort level Outcome: Progressing Flowsheets (Taken 07/21/2023 0740) Verbalizes/displays adequate comfort level or baseline comfort level: Encourage patient to monitor pain and request assistance Assess pain using appropriate pain scale Administer analgesics based on type and severity of pain and evaluate response Implement non-pharmacological measures as appropriate and evaluate response Problem: Safety - Adult Goal: Free from fall injury Outcome: Progressing Flowsheets (Taken 07/21/2023741) Free from fall injury: Assess patient frequently for physical needs Identify cognitive and physical deficits and behaviors that affect risk of falls [place] fall precautions as indicated by assessment Educate patient/family on patient safety, including physical limitations Instruct patient to call for assistance with activity based on assessment Modify environment to reduce risk of injury Consider OT/PT consult to assist with strengthening/mobility Problem: Discharge Planning Goal: Discharge to home or other facility with appropriate resources Outcome: Progressing Flowsheets (Taken 07/21/2023739) Discharge to home or other facility with appropriate resources: Identify barriers to discharge with patient and caregiver Arrange for needed discharge resources and transportation as appropriate Identify discharge learning needs (meds, wound care, etc) Problem: Chronic Conditions and Co-morbidities Goal: Patient's chronic conditions and co-morbidity symptoms are monitored and maintained or improved Outcome: Progressing Flowsheets (Taken 07/21/2023739) Care Plan - Patient's Chronic Conditions and Co-Morbidity Symptoms are Monitored and Maintained or Improved: Monitor and assess patient's chronic conditions and comorbid symptoms for stability, deterioration, or improvement Collaborate with multidisciplinary team to address chronic and comorbid conditions and prevent exacerbation or deterioration Update acute care plan with appropriate goals if chronic or comorbid symptoms are exacerbated and prevent overall improvement and discharge Problem: Cardiovascular - Adult Goal: Maintains optimal cardiac output and hemodynamic stability Outcome: Progressing Flowsheets (Taken 07/21/2023739) Maintains optimal cardiac output and hemodynamic stability: Monitor blood pressure and heart rate Monitor urine output and notify Licensed Independent Practitioner for values outside of normal range Assess for signs of decreased cardiac output Goal: Absence of cardiac dysrhythmias or at baseline Outcome: Progressing Flowsheets (Taken 07/21/2023739) Absence of cardiac dysrhythmias or at baseline: Monitor cardiac rate and rhythm Assess for signs of decreased cardiac output The patient is Moderately Stable - Low risk of patient condition declining or worsening The patient's goals for the shift include comfort The clinical goals for the shift include VSS; safety Normal [facility] 30 The patient is Moderately Stable - Low risk of patient condition declining or worsening The patient's goals for the shift include comfort The clinical goals for the shift include VSS, safety Problem: Safety - Adult Goal: Free from fall injury Outcome: Progressing Flowsheets (Taken 07/21/2023 0300) Free from fall injury: Assess patient frequently for physical needs Problem: Cardiovascular - Adult Goal: Maintains optimal cardiac output and hemodynamic stability Outcome: Progressing Goal: Absence of cardiac dysrhythmias or at baseline Outcome: Not Progressing Normal [facility] ANTI-XA (HEPARIN LEVEL)on HEPARIN UNFRACTIONATED (U/ML) IN PPP BY CHROMOGENIC METHOD 0.14 IU/mL Invalid Interpretation Code 0.3-0.7 [facility] Comment on above: Result Comment: [place] roxaban and Apixaban will interfere with the anti Xa assay used to monitor UFH and LMWH. Performed By: #### L [id number] ####[facility] ([facility])[address] [place] [address] HEPARIN UNFRACTIONATED (U/ML) IN PPP BY CHROMOGENIC METHOD <0.10 Invalid Interpretation Code 0.3-0.7 [facility] Comment on above: Result Comment: Clotilde roxaban and Apixaban will interfere with the anti Xa assay used to monitor UFH and LMWH. Performed By: #### L [id number] ####[facility] ([facility])[address] [place] [address] HEPARIN UNFRACTIONATED (U/ML) IN PPP BY CHROMOGENIC METHOD <0.10 Invalid Interpretation Code 0.3-0.7 [facility] Comment on above: Order Comment: Check anti-Xa level every 6 hours while on heparin infusion, or per protocol. Result Comment: Clotilde roxaban and Apixaban will interfere with the anti Xa assay used to monitor UFH and LMWH. Performed By: #### L [id number] #### [facility] ([facility]) [address] [place] [address] B-TYPE NATRIURETIC PEPTIDEon 07-21-2023 Natriuretic peptide B (Bld) [Mass/Vol] 841 pg/mL High 0-100 [facility] Comment on above: Performed By: #### L [id number] #### [facility] ([facility]) [address] [place] [address] COMPREHENSIVE METABOLIC PANE Oscar 07-21-2023 Albumin [Mass/Vol] 2.9 g/dL Low 3.5-5.7 [facility] Comment on above: Performed By: #### L [id number] #### [facility] ([facility]) [address] [place] [address] ALP [Catalytic activity/Vol] 97 U/L Normal 34-104 [facility] Comment on above: Performed By: #### L [id number] #### [facility] ([facility]) [address] [place] [address] ALT [Catalytic activity/Vol] 12 U/L Normal 7-52 [facility] Comment on above: Performed By: #### L [id number] #### [facility] ([facility]) [address] [place] [address] Anion gap [Moles/Vol] 11 mmol/L Normal 7-20 [facility] Comment on above: Performed By: #### L [id number] #### [facility] ([facility]) [address] [place] [address] AST [Catalytic activity/Vol] 21 U/L Normal 13-39 [facility] Comment on above: Performed By: #### L [id number] #### [facility] ([facility]) [address] [place] [address] Bilirubin [Mass/Vol] 0.6 mg/dL Normal 0.3-1.0 [facility] Comment on above: Performed By: #### L [id number] #### [facility] ([facility]) [address] [place] [address] Calcium [Mass/Vol] 9.7 mg/dL Normal 8.6-10.3 [facility] Comment on above: Performed By: #### L [id number] #### [facility] ([facility]) [address] [place] [address] Chloride [Moles/Vol] 108 mmol/L High 98-107 [facility] Comment on above: Performed By: #### L [id number] #### [facility] ([facility]) [address] [place] [address] CO2 [Moles/Vol] 23 mmol/L Normal 21-31 [facility] Comment on above: Performed By: #### L [id number] #### [facility] ([facility]) [address] [place] [address] Creatinine [Mass/Vol] 0.68 mg/dL Normal 0.60-1.20 [facility] Comment on above: Performed By: #### L [id number] #### [facility] ([facility]) [address] [place] [address] GLOMERULAR FILTRATION RATE ML/MIN/1.73 SQ M.PREDICTED 91.3 mL/min/1.73m*2 Normal >60.0 [facility] Comment on above: Result Comment: The [facility]???s estimated glomerular filtration rate (eGFR) will no longer include consideration of race in its calculation. The National Kidney Foundation???s eGFR Task Force developed new recommendations for the estimation of the glomerular filtration rate in the [place] They recommend immediate implementation of the new equation refit without the race variable in all laboratories because the calculation does not include race. In addition to not including race in the calculation and reporting, it included diversity in its development, and has acceptable performance characteristics and potential consequences that do not disproportionately affect any one group of individuals. Performed By: #### L [id number] #### [facility] ([facility]) [address] [place] [address] Glucose [Mass/Vol] 92 mg/dL Normal 70-100 [facility] Comment on above: Performed By: #### L [id number] #### [facility] ([facility]) [address] [place] [address] Potassium [Moles/Vol] 3.8 mmol/L Normal 3.5-5.1 [facility] Comment on above: Performed By: #### L [id number] #### [facility] ([facility]) [address] [place] [address] Protein [Mass/Vol] 5.4 g/dL Low 6.0-8.3 [facility] Comment on above: Performed By: #### L [id number] #### [facility] ([facility]) [address] [place] [address] Sodium [Moles/Vol] 138 mmol/L Normal 136-145 [facility] Comment on above: Performed By: #### L [id number] #### [facility] ([facility]) [address] [place] [address] Urea nitrogen [Mass/Vol] 19 mg/dL Normal 7-25 [facility] Comment on above: Performed By: #### L [id number] #### [facility] ([facility]) [address] [place] [address] UREA NITROGEN/CREATININE (MASS RATIO) IN SER/PLAS 27.9 Normal [facility] Comment on above: Performed By: #### L [id number] #### [facility] ([facility]) [address] [place] [address] HEMOGLOBIN AND HEMATOCRIT, B LOODon 07-21-2023 Hematocrit (Bld) [Volume fraction] 29.9 % Low 36.0-48.0 [facility] Comment on above: Performed By: #### L [id number] #### [facility] ([facility]) [address] [place] [address] Hemoglobin (Bld) [Mass/Vol] 9.5 g/dL Low 12.0-15.0 [facility] Comment on above: Performed By: #### L [id number] #### [facility] ([facility]) [address] [place] [address] MAGNESIUMon 07-21-2023 Magnesium [Mass/Vol] 1.5 mg/dL Low 1.9-2.7 [facility] Comment on above: Performed By: #### L [id number] ####[facility] ([facility])[address] [place] [address] T3, FREEon 07-21-2023 TRIIODOTHYRONINE (T3) FREE (PG/ML) IN SER/PLAS 3.7 pg/mL Normal 2.5-3.9 [facility] Comment on above: Performed By: #### L [id number] #### [facility] ([facility]) [address] [place] [address] T4, FREEon 07-21-2023 THYROXINE (T4) FREE (NG/DL) IN SER/PLAS 1.14 ng/dL Normal 0.71-1.85 [facility] Comment on above: Performed By: #### L [id number] ####[facility] ([facility])[address] [place] [address] TROPONIN Ion 07-21-2023 Troponin I.cardiac [Mass/Vol] 0.04 ng/mL Normal 0.00-0.04 [facility] Comment on above: Performed By: #### L [id number] #### [facility] ([facility]) [address] [place] [place] [address] Troponin I.cardiac [Mass/Vol] 0.05 ng/mL High 0.00-0.04 [facility] Comment on above: Performed By: #### L [id number] ####[facility] ([facility])[address] [place] [address] VITAMIN D 1,25 DIHYDROXYon 1 09-20-2022 VITAMIN D 1,25-DIHYDROXY 32.9 pg/mL Normal 19.9-79.3 [facility] Comment on above: Result Comment: INTE RPRETIVE INFORMATION: Vitamin D, 1,25-Dihydroxy This test is primarily indicated during patient evaluation for hypercalcemia and renal failure. A normal result does not rule out Vitamin D deficiency. The recommended test for diagnosing Vitamin D deficiency is Vitamin D 25-hydroxy. Performed By: [facility] [address] [place] [id number] Call Center Support Consultant: Zeus Ventura MD, PhD CLIA Number: [id number] Performed By: #### L [id number] ####[facility] ([facility])[address] [place] [id number] VITAMIN D 25 HYDROXYon 07-21 CALCIDIOL (25 [place] VITAMIN D3) (NG/ML) IN SER/PLAS 23.2 ng/mL Low 30.0-80.0 [facility] Comment on above: Result Comment: >80. 0 Toxicity possible Performed By: #### L [id number] #### [facility] ([facility]) [address] [place] [address] 30on 07-20-2023 30 Daily Case Managemen t Update Multidisciplinary rounds have been completed. End of shift note. Per Progress Note/s: ER admit from straight [facility] office; new onset A-Fib. Heparin gtt. Cardiac Cath. AMITA. PT ordered; pending. OT recs Home. From Home. Diet: Dietary Orders (From admission, onward) Start Ordered 07/20/231512 Special Kitchen Request Once Comments: Chicken tenders and fries, diet coke, bbq sauce 07/20/23 1512 07/20/23 1512 Regular Diet Heart Healthy/HTN, CABG,Stroke, (2gNA, low fat, low cholesterol); HF/Cirrhosis/CKD/ESRD(2 gm NA) Diet effective now Question Answer Comment Room Service? Yes Fat restriction: Heart Healthy/HTN, CABG,Stroke, (2gNA, low fat, low cholesterol) Sodium restriction: HF/Cirrhosis/CKD/ESRD(2 gm NA) 07/20/23 1511 07/20/23 1401 Dietary nutrition supplements BID (breakfast and dinner); Boost Plus; Chocolate; Oral; 8 oz Until discontinued Question Answer Comment Deliver with BID breakfast and dinner Select supplement: Boost Plus Flavor Chocolate Route Oral Strength: 8 oz 07/20/23 1400 Physician Expected Discharge Date: 07/23/2023 Discharge Delays: PT Six Click Score: OT Six Click Score: 21 PT Recommendations: OT Recommendations: Home New Consults: Therapy Orders (From admission, onward) Start Ordered 07/19/232118 PT eval and treat Until therapy completed Question: Reason for PT? Answer: weakness 07/19/23211707/19/232118 OT eval and treat Until therapy completed Question: Reason for OT? Answer: fall 07/19/232117 Normal [facility] 30 Problem: Pain - Adul t Goal: Verbalizes/displays adequate comfort level or baseline comfort level Outcome: Progressing Flowsheets (Taken 07/20/2023 07) Verbalizes/displays adequate comfort level or baseline comfort level: Encourage patient to monitor pain and request assistance Assess pain using appropriate pain scale Administer analgesics based on type and severity of pain and evaluate response Implement non-pharmacological measures as appropriate and evaluate response Problem: Safety - Adult Goal: Free from fall injury Outcome: Progressing Flowsheets (Taken 07/20/2023 0753) Free from fall injury: Assess patient frequently for physical needs Identify cognitive and physical deficits and behaviors that affect risk of falls [place] fall precautions as indicated by assessment Educate patient/family on patient safety, including physical limitations Instruct patient to call for assistance with activity based on assessment Modify environment to reduce risk of injury Consider OT/PT consult to assist with strengthening/mobility Problem: Discharge Planning Goal: Discharge to home or other facility with appropriate resources Outcome: Progressing Flowsheets (Taken 07/20/2023 07) Discharge to home or other facility with appropriate resources: Identify barriers to discharge with patient and caregiver Arrange for needed discharge resources and transportation as appropriate Identify discharge learning needs (meds, wound care, etc) Problem: Chronic Conditions and Co-morbidities Goal: Patient's chronic conditions and co-morbidity symptoms are monitored and maintained or improved Outcome: Progressing Flowsheets (Taken 07/20/2023699) Care Plan - Patient's Chronic Conditions and Co-Morbidity Symptoms are Monitored and Maintained or Improved: Monitor and assess patient's chronic conditions and comorbid symptoms for stability, deterioration, or improvement Collaborate with multidisciplinary team to address chronic and comorbid conditions and prevent exacerbation or deterioration Update acute care plan with appropriate goals if chronic or comorbid symptoms are exacerbated and prevent overall improvement and discharge The patient is Moderately Stable - Low risk of patient condition declining or worsening The patient's goals for the shift include comfort The clinical goals for the shift include VSS; safety [facility] S[facility] 07-20-2023 MYKELS Patient: Darek Mejía Choose an anesthesia record to view details Clinical information reviewed: Allergies Meds Physical Exam Airway Mallampati: III Cardiovascular Rhythm: irregular Rate: normal Dental Pulmonary Breath sounds clear to auscultation Abdominal Anesthesia Plan ASA 3 other (Moderate sedation) Anesthetic plan and risks discussed with patient. Use of blood products discussed with patient who consented to blood products. Plan discussed with fellow and attending. Additional Equipment Requests Normal [facility] ANES Patient: Darek Mejía Choose an anesthesia record to view details Clinical information reviewed: Allergies Meds Physical Exam Airway Mallampati: III TM distance: >3 FB Neck ROM: full Cardiovascular Rhythm: irregular Rate: normal Dental Pulmonary - normal exam Breath sounds clear to auscultation Abdominal Abdomen: soft Anesthesia Plan ASA 4 other (Moderate sedation) Anesthetic plan and risks discussed with patient. Use of blood products discussed with patient who consented to blood products. Plan discussed with fellow and attending. Additional Equipment Requests Normal [facility] ANTI-XA (HEPARIN LEVEL)on HEPARIN UNFRACTIONATED (U/ML) IN PPP BY CHROMOGENIC METHOD <0.10 Invalid Interpretation Code 0.3-0.7 [facility] Comment on above: Order Comment: Check anti-Xa level every 6 hours while on heparin infusion, or per protocol. Result Comment: Clotilde roxaban and Apixaban will interfere with the anti Xa assay used to monitor UFH and LMWH. Performed By: #### L [id number] #### [facility] ([facility]) [address] [place] [address] CBCon 07-20-2023 Erythrocyte distribution width (RBC) [Ratio] 16.4 % High 11.5-15.0 [facility] Comment on above: Performed By: #### L [id number] #### [facility] ([facility]) [address] [place] [address] ERYTHROCYTE MEAN CORPUSCULAR HEMOGLOBIN CONCENTRATION (G/DL) BY AUTOMATED 32.2 g/dL Normal 32.0-35.0 [facility] Comment on above: Performed By: #### L [id number] #### [facility] ([facility]) [address] [place] [address] Hematocrit (Bld) [Volume fraction] 32.3 % Low 36.0-48.0 [facility] Comment on above: Performed By: #### L [id number] #### [facility] ([facility]) [address] [place] [address] Hemoglobin (Bld) [Mass/Vol] 10.4 g/dL Low 12.0-15.0 [facility] Comment on above: Performed By: #### L [id number] #### [facility] ([facility]) [address] [place] [address] MCH (RBC) [Entitic mass] 26.8 pg Low 27.0-33.0 [facility] Comment on above: Performed By: #### L [id number] #### [facility] ([facility]) [address] [place] [address] MCV (RBC) [Entitic vol] 83.2 fL Normal 82.0-98.0 [facility] Comment on above: Performed By: #### L [id number] #### [facility] ([facility]) [address] [place] [address] PLATELETS (10*3/UL) IN BLOOD AUTOMATED COUNT 262 10*3/uL Normal 150-400 [facility] Comment on above: Performed By: #### L [id number] #### [facility] ([facility]) [address] [place] [address] RBC (Bld) [#/Vol] 3.88 10*6/uL Normal 3.80-5.00 [facility] Comment on above: Performed By: #### L [id number] #### [facility] ([facility]) [address] [place] [address] WBC (Bld) [#/Vol] 5.76 10*3/uL Normal 4.00-10.60 [facility] Comment on above: Performed By: #### L [id number] #### [facility] ([facility]) [address] [place] [address] CONSULTon 07-20-2023 CONSULT --- Attestation signed by David Carias MD at 07/24/2023 10:07 AM By using the attestations below, the signing clinician agrees that I have read and verify that the documentation has been personally reviewed by me and ensure that the documentation accurately reflects the encounter. GC: I personally saw this patient on the day of the encounter, performed the madrigal portion(s) of the service and participated in the management and confirm the resident's documentation. Please note there may be an additional personal documentation from me. Cardiology Consult Note Reason for Consult: Afib / Bioprosthetic aortic valve stenosis HPI: Darek Mejía is a 73 y.o. female with PMH of CAD s/p CABG x5 and revision CABG in 2020 (CH-LAD, rSVG- Diagonal, SVG-OM, SVG-PDA-PLV), HFpEF, valvular disease s/p bioprosthetic AVR, Hypertension who presented as a direct admit from our cardiology office, she denied any cardiac symptoms, Her EKG showed possible Afib with heart rate fluctuating in between 40s & 120s , and her Echo showed Evidence of severe bioprosthetic valve stenosis with DVI < 0.24. She presented here for evaluation of her valve and Afib. Cardiology ROS: GENERAL: Denies fever, chills, night sweats, weight loss. CARDIOVASCULAR: Denies chest pain, exertional dyspnea, orthopnea/PND, lower extremity edema, palpitations, lightheadedness/dizzine ss, syncope. RESPIRATORY: Denies SOB, coughing, wheezing GI: Denies abdominal pain, nausea/vomiting. PSYCH: Denies anxiety. Past Medical History She has a past medical history of Coronary artery disease, Heart valve disease, and Hypertension. Surgical History She has a past surgical history that includes Cardiac catheterization; Coronary artery bypass graft; Cholecystectomy; Cervical spine surgery; Hysterectomy; and Mastectomy. Social History She reports that she has been smoking cigarettes. She has been smoking an average of .5 packs per day. She has never used smokeless tobacco. She reports current alcohol use. No history on file for drug use. Family History Family History Problem Relation Name Age of Onset Coronary artery disease Father Diabetes Father Allergies Tetanus vaccines and toxoid, Allopurinol, Spironolactone, Tetanus and diphther. tox (pf), and Isosorbide dinitrate Medications Medications Prior to Admission Medication Sig Dispense Refill Last Dose aspirin 81 mg chewable tablet Chew 1 tablet (81 mg) once daily as directed. 90 tablet 3 atorvastatin (Lipitor) 80 mg tablet TAKE 1 TABLET BY MOUTH EVERY DAY 90 tablet 3 carvedilol (Coreg) 12.5 mg tablet Take 1 tablet (12.5 mg) by mouth in the morning and at bedtime. 180 tablet 3 cholecalciferol, vitamin D3, 50 mcg (2,000 unit) capsule Take by mouth in the morning. furosemide (Lasix) 20 mg tablet Take 1 tablet (20 mg) by mouth in the morning. (Patient taking differently: Take 20 mg by mouth every other day.) 90 tablet 2 levothyroxine (Synthroid, Levoxyl) 100 mcg tablet Take 100 mcg by mouth in the morning. liothyronine (Cytomel) 25 mcg tablet Take 25 mcg by mouth in the morning. lisinopril 20 mg tablet Take 1 tablet (20 mg) by mouth in the morning. 90 tablet 3 nitroglycerin (Nitrostat) 0.4 mg SL tablet Sublingual pantoprazole (ProtoNix) 40 mg EC tablet Take 40 mg by mouth in the morning. potassium chloride CR (Klor-Con) 10 mEq ER tablet Take 10 mEq by mouth every other day. sertraline (Zoloft) 100 mg tablet Take 100 mg by mouth in the morning. spironolactone (Aldactone) 25 mg tablet Take 1 tablet (25 mg) by mouth in the morning. (Patient not taking: Reported on 07/19/2023) 90 tablet 3 tiZANidine (Zanaflex) 4 mg tablet Take 4 mg by mouth in the morning, afternoon, and at bedtime. Trelegy Ellipta 100-62.5-25 mcg blister with device Last Recorded Vitals Patient Vitals for the past 24 hrs: BP Temp Temp src Pulse Resp SpO2 Height Weight 07/20/23 0300 112/70 36.7 ???C (98.1 ???F) Temporal 106 22 91 % -- -- 07/20/23 0000 129/78 36.7 ???C (98 ???F) Temporal 110 (!) 31 91 % -- -- 07/19/232055 -- -- -- -- -- -- 1.702 m (5' 7 ) 54.6 kg (120 lb 5.9 oz) 07/19/232054 -- -- -- -- -- -- -- 54.6 kg (120 lb 5.9 oz) 07/19/232023 (!) 151/99 36.9 ???C (98.4 ???F) Temporal 108 20 -- -- -- Physical Examination: GENERAL: AOx3, in no acute distress. HEAD: Atraumatic, normocephalic. EYES: JUSTA, EOMI. NECK: No JVD present. CARDIAC: RRR. No murmur, rubs, or gallops. RESPIRATORY: CTAB, no increased effort of breathing. ABDOMEN: Soft, nontender, nondistended. EXTREMITIES: No lower extremity edema, peripheral pulses are 2+ bilaterally. NEURO: No focal deficits Relevant Lab Results @LABRESULTS@ No results found for this or any previous visit (from the past 4464 hour(s)). No results found for: CKTOTAL, CKMB, CKM (more content not included)... Normal [facility] HPon 07-20-2023 History Of Present Illness Darek Mejía is a 73 y.o. 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 The patient complains of symptoms of shortness of breath as well as chest discomfort. Echocardiogram showing severe aortic stenosis of about static valve based on DVI as well as gradients/velocities. She was transferred for heart catheterization and AMITA. Past Medical History She has a past medical history of Coronary artery disease, Heart valve disease, and Hypertension. Surgical History She has a past surgical history that includes Cardiac catheterization; Coronary artery bypass graft; Cholecystectomy; Cervical spine surgery; Hysterectomy; and Mastectomy. Social History She reports that she has been smoking cigarettes. She has been smoking an average of .5 packs per day. She has never used smokeless tobacco. She reports current alcohol use. No history on file for drug use. Allergies Tetanus vaccines and toxoid, Allopurinol, Spironolactone, Tetanus and diphther. tox (pf), and Isosorbide dinitrate Medications Medications Prior to Admission Medication Sig Dispense Refill Last Dose aspirin 81 mg chewable tablet Chew 1 tablet (81 mg) once daily as directed. 90 tablet 3 atorvastatin (Lipitor) 80 mg tablet TAKE 1 TABLET BY MOUTH EVERY DAY 90 tablet 3 carvedilol (Coreg) 12.5 mg tablet Take 1 tablet (12.5 mg) by mouth in the morning and at bedtime. 180 tablet 3 cholecalciferol, vitamin D3, 50 mcg (2,000 unit) capsule Take by mouth in the morning. furosemide (Lasix) 20 mg tablet Take 1 tablet (20 mg) by mouth in the morning. (Patient taking differently: Take 20 mg by mouth every other day.) 90 tablet 2 levothyroxine (Synthroid, Levoxyl) 100 mcg tablet Take 100 mcg by mouth in the morning. liothyronine (Cytomel) 25 mcg tablet Take 25 mcg by mouth in the morning. lisinopril 20 mg tablet Take 1 tablet (20 mg) by mouth in the morning. 90 tablet 3 nitroglycerin (Nitrostat) 0.4 mg SL tablet Sublingual pantoprazole (ProtoNix) 40 mg EC tablet Take 40 mg by mouth in the morning. potassium chloride CR (Klor-Con) 10 mEq ER tablet Take 10 mEq by mouth every other day. sertraline (Zoloft) 100 mg tablet Take 100 mg by mouth in the morning. spironolactone (Aldactone) 25 mg tablet Take 1 tablet (25 mg) by mouth in the morning. (Patient not taking: Reported on 07/19/2023) 90 tablet 3 tiZANidine (Zanaflex) 4 mg tablet Take 4 mg by mouth in the morning, afternoon, and at bedtime. Trelegy Ellipta 100-62.5-25 mcg blister with device Review of Systems All other systems reviewed and are negative. Physical Exam Vitals reviewed. HENT: Mouth/Throat: Mouth: Mucous membranes are moist. Pharynx: Oropharynx is clear. Eyes: Extraocular Movements: Extraocular movements intact. Conjunctiva/sclera: Conjunctivae normal. Cardiovascular: Rate and Rhythm: Tachycardia present. Rhythm irregular. Pulses: Normal pulses. Pulmonary: Effort: Pulmonary effort is normal. Abdominal: General: Abdomen is flat. Musculoskeletal: General: Normal range of motion. Skin: General: Skin is warm. Capillary Refill: Capillary refill takes less than 2 seconds. Neurological: General: No focal deficit present. Mental Status: She is alert. Mental status is at baseline. Psychiatric: Mood and Affect: Mood normal. Last Recorded Vitals Blood pressure (!) 163/104, pulse 109, temperature 37 ???C (98.6 ???F), temperature source Temporal, resp. rate 22, height 1.702 m (5' 7 ), weight 54.6 kg (120 lb 5.9 oz), SpO2 99 %. Relevant Results Reviewed Assessment/Plan Principal Problem: Atrial fibrillation (CMS/HCC) Active Problems: Acute heart failure with preserved ejection fraction (CMS/HCC) Nonrheumatic aortic valve stenosis Assessment: Chest pain and dyspnea New onset atrial fibrillation with RVR CAD status post CABG with revision in 2019 Aortic valve replacement, bioprosthetic, moderate severe stenosis Proximal aorta replacement Tricuspid valve repair Plan: Proceed with coronary angiogram and right heart cath as well as valve study to further evaluate symptoms Faith Hassan DO, MPH [employer] [facility] Normal [facility] HP H&P reviewed. The patient was examined and there are no changes to the H&P. [facility] ANTI-XA (HEPARIN LEVEL)on HEPARIN UNFRACTIONATED (U/ML) IN PPP BY CHROMOGENIC METHOD <0.10 Invalid Interpretation Code 0.3-0.7 [facility] Comment on above: Order Comment: Check anti-Xa level every 6 hours while on heparin infusion, or per protocol. Result Comment: [place] roxaban and Apixaban will interfere with the anti Xa assay used to monitor UFH and LMWH. Performed By: #### L [id number] #### [facility] ([facility]) [address] [place] [address] APTTon 07-19-2023 ACTIVATED PARTIAL THROMBOPLASTIN TIME IN PPP BY COAGULATION ASSAY 29.1 Seconds Normal 25.0-35.0 [facility] Comment on above: Order Comment: Basel ine aPTT before initiating heparin infusion. Result Comment: Clin ical significance of the APTT is questionable in the presence of heparin. Performed By: #### L [id number] ####[facility] ([facility])[address] [place] [address] CBC WITH AUTO DIFFERENTIALon 07-19-2023 Basophils (Bld) [#/Vol] 0.07 10*3/uL Normal 0.00-0.20 [facility] Comment on above: Performed By: #### L [id number] #### [facility] ([facility]) [address] [place] [address] Basophils/100 WBC (Bld) 1.1 % High 0.0-1.0 [facility] Comment on above: Performed By: #### L [id number] #### [facility] ([facility]) [address] [address] Eosinophils (Bld) [#/Vol] 0.10 10*3/uL Normal 0.00-0.50 [facility] Comment on above: Performed By: #### L [id number] #### [facility] ([facility]) [address] [place] [address] Eosinophils/100 WBC (Bld) 1.6 % Normal 0.0-6.0 [facility] Comment on above: Performed By: #### L [id number] #### [facility] ([facility]) [address] [place] [address] Erythrocyte distribution width (RBC) [Ratio] 16.4 % High 11.5-15.0 [facility] Comment on above: Performed By: #### L [id number] #### [facility] ([facility]) [address] [place] [address] ERYTHROCYTE MEAN CORPUSCULAR HEMOGLOBIN CONCENTRATION (G/DL) BY AUTOMATED 31.8 g/dL Low 32.0-35.0 [facility] Comment on above: Performed By: #### L [id number] #### [facility] ([facility]) [address] [place] [address] Hematocrit (Bld) [Volume fraction] 35.5 % Low 36.0-48.0 [facility] Comment on above: Performed By: #### L [id number] #### [facility] ([facility]) [address] [place] [address] Hemoglobin (Bld) [Mass/Vol] 11.3 g/dL Low 12.0-15.0 [facility] Comment on above: Performed By: #### L [id number] #### [facility] ([facility]) [address] [place] [address] Immature granulocytes (Bld) [#/Vol] 0.02 10*3/uL Normal 0.00-0.20 [facility] Comment on above: Performed By: #### L [id number] #### [facility] ([facility]) [address] [place] [address] Immature granulocytes/100 WBC (Bld) 0.3 % Normal 0.0-1.0 [facility] Comment on above: Performed By: #### L [id number] #### [facility] ([facility]) [address] [place] [address] Lymphocytes (Bld) [#/Vol] 1.76 10*3/uL Normal 1.20-4.00 [facility] Comment on above: Performed By: #### L [id number] #### [facility] ([facility]) [address] [address] Lymphocytes/100 WBC (Bld) 28.5 % Normal 20.0-45.0 [facility] Comment on above: Performed By: #### L [id number] #### [facility] ([facility]) [address] [place] [address] MCH (RBC) [Entitic mass] 26.9 pg Low 27.0-33.0 [facility] Comment on above: Performed By: #### L [id number] #### [facility] ([facility]) [address] [address] MCV (RBC) [Entitic vol] 84.5 fL Normal 82.0-98.0 [facility] Comment on above: Performed By: #### L [id number] #### [facility] ([facility]) [address] [place] [address] Monocytes (Bld) [#/Vol] 0.48 10*3/uL Normal 0.10-1.00 [facility] Comment on above: Performed By: #### L [id number] #### [facility] ([facility]) [address] [place] [address] Monocytes/100 WBC (Bld) 7.8 % Normal 5.0-12.0 [facility] Comment on above: Performed By: #### L [id number] #### [facility] ([facility]) [address] [place] [address] Neutrophils (Bld) [#/Vol] 3.74 10*3/uL Normal 1.60-7.60 [facility] Comment on above: Performed By: #### L [id number] #### [facility] ([facility]) [address] [place] [address] Neutrophils/100 WBC (Bld) 60.7 % Normal 40.0-72.0 [facility] Comment on above: Performed By: #### L [id number] #### [facility] ([facility]) [address] [place] [address] NRBC (PER 100 WBCS) BY AUTOMATED COUNT 0.0 % Normal 0 [facility] Comment on above: Performed By: #### L [id number] #### [facility] ([facility]) [address] [place] [address] PLATELETS (10*3/UL) IN BLOOD AUTOMATED COUNT 289 10*3/uL Normal 150-400 [facility] Comment on above: Performed By: #### L [id number] #### [facility] ([facility]) [address] [place] [address] RBC (Bld) [#/Vol] 4.20 10*6/uL Normal 3.80-5.00 [facility] Comment on above: Performed By: #### L [id number] #### [facility] ([facility]) [address] [place] [address] WBC (Bld) [#/Vol] 6.17 10*3/uL Normal 4.00-10.60 [facility] Comment on above: Performed By: #### L [id number] #### [facility] ([facility]) [address] [place] [address] COMPREHENSIVE METABOLIC PANE Oscar 07-19-2023 Albumin [Mass/Vol] 3.7 g/dL Normal 3.5-5.7 [facility] Comment on above: Performed By: #### L [id number] #### [facility] ([facility]) [address] [place] [address] ALP [Catalytic activity/Vol] 132 U/L High 34-104 [facility] Comment on above: Performed By: #### L [id number] #### [facility] ([facility]) [address] [place] [address] ALT [Catalytic activity/Vol] 17 U/L Normal 7-52 [facility] Comment on above: Performed By: #### L [id number] #### [facility] ([facility]) [address] [place] [address] Anion gap [Moles/Vol] 11 mmol/L Normal 7-20 [facility] Comment on above: Performed By: #### L [id number] #### [facility] ([facility]) [address] [place] [address] AST [Catalytic activity/Vol] 23 U/L Normal 13-39 [facility] Comment on above: Performed By: #### L [id number] #### [facility] ([facility]) [address] [place] [address] Bilirubin [Mass/Vol] 0.9 mg/dL Normal 0.3-1.0 [facility] Comment on above: Performed By: #### L [id number] #### [facility] ([facility]) [address] [place] [address] Calcium [Mass/Vol] 10.7 mg/dL High 8.6-10.3 [facility] Comment on above: Performed By: #### L [id number] #### [facility] ([facility]) [address] [place] [address] Chloride [Moles/Vol] 104 mmol/L Normal 98-107 [facility] Comment on above: Performed By: #### L [id number] #### [facility] ([facility]) [address] [place] [address] CO2 [Moles/Vol] 28 mmol/L Normal 21-31 [facility] Comment on above: Performed By: #### L [id number] #### [facility] ([facility]) [address] [place] [address] Creatinine [Mass/Vol] 0.66 mg/dL Normal 0.60-1.20 [facility] Comment on above: Performed By: #### L [id number] #### [facility] ([facility]) [address] [place] [address] GLOMERULAR FILTRATION RATE ML/MIN/1.73 SQ M.PREDICTED 92.0 mL/min/1.73m*2 Normal >60.0 [facility] Comment on above: Result Comment: [facility]???s estimated glomerular filtration rate (eGFR) will no longer include consideration of race in its calculation. The National Kidney Foundation???s eGFR Task Force developed new recommendations for the estimation of the glomerular filtration rate in the [place] They recommend immediate implementation of the new equation refit without the race variable in all laboratories because the calculation does not include race. In addition to not including race in the calculation and reporting, it included diversity in its development, and has acceptable performance characteristics and potential consequences that do not disproportionately affect any one group of individuals. Performed By: #### L [id number] #### [facility] ([facility]) [address] [place] [address] Glucose [Mass/Vol] 131 mg/dL High 70-100 [facility] Comment on above: Performed By: #### L [id number] #### [facility] ([facility]) [address] [place] [address] Potassium [Moles/Vol] 3.5 mmol/L Normal 3.5-5.1 [facility] Comment on above: Performed By: #### L [id number] #### [facility] ([facility]) [address] [place] [address] Protein [Mass/Vol] 6.8 g/dL Normal 6.0-8.3 [facility] Comment on above: Performed By: #### L [id number] #### [facility] ([facility]) [address] [place] [address] Sodium [Moles/Vol] 139 mmol/L Normal 136-145 [facility] Comment on above: Performed By: #### L [id number] #### [facility] ([facility]) [address] [place] [address] Urea nitrogen [Mass/Vol] 15 mg/dL Normal 7-25 [facility] Comment on above: Performed By: #### L [id number] #### [facility] ([facility]) [address] [place] [address] UREA NITROGEN/CREATININE (MASS RATIO) IN SER/PLAS 22.7 Normal [facility] Comment on above: Performed By: #### L [id number] #### [facility] ([facility]) [address] [place] [address] HP 07-19-2023 [facility] Cardiology Clinic Note Chief Complaint: Patient here for follow up echo and ECG done 2 weeks ago. Says HR was in the 40's but has been elevated ever since she had her echo. Denies chest pain, palpitations, and lightheadedness. HPI: Darek Mejía is a 73 y.o. female With a history of coronary artery disease, prior bypass surgery, hypertension and heart failure here in routine follow-up She unfortunately suffered an accidental fall and this resulted in a fractured pelvis. She is in some degree of discomfort. Thankfully, she denies preceding cardiac symptoms. She currently has no chest pain. Her shortness of breath is stable. Update 07/19/2023: The patient probably had a pneumonia in June while she was traveling. She had fevers, chills, cough and expectoration. For the past several weeks, she has noticed worsening shortness of breath. She denies chest pain. She denies palpitations, lightheadedness or dizziness. Heart rates have been fluctuating between the 40s to 120s. Cardiology ROS: Review of Systems Cardiovascular: Positive for dyspnea on exertion. Hematologic/Lymphatic: Bruises/bleeds easily. Musculoskeletal: Positive for arthritis, back pain, joint pain and myalgias. All other systems reviewed and are negative. Past Medical History She has a past medical history of Coronary artery disease, Heart valve disease, and Hypertension. Surgical History She has a past surgical history that includes Cardiac catheterization; Coronary artery bypass graft; Cholecystectomy; Cervical spine surgery; Hysterectomy; and Mastectomy. Social History She reports that she has been smoking cigarettes. She has been smoking an average of .5 packs per day. She has never used smokeless tobacco. She reports current alcohol use. No history on file for drug use. Family History Family History Problem Relation Name Age of Onset Coronary artery disease Father Diabetes Father Allergies Tetanus vaccines and toxoid, Allopurinol, Spironolactone, Tetanus and diphther. tox (pf), and Isosorbide dinitrate Medications Current Outpatient Medications: aspirin 81 mg chewable tablet, Chew 1 tablet (81 mg) once daily as directed., Disp: 90 tablet, Rfl: 3 atorvastatin (Lipitor) 80 mg tablet, TAKE 1 TABLET BY MOUTH EVERY DAY, Disp: 90 tablet, Rfl: 3 carvedilol (Coreg) 12.5 mg tablet, Take 1 tablet (12.5 mg) by mouth in the morning and at bedtime., Disp: 180 tablet, Rfl: 3 cholecalciferol, vitamin D3, 50 mcg (2,000 unit) capsule, Take by mouth in the morning., Disp: , Rfl: furosemide (Lasix) 20 mg tablet, Take 1 tablet (20 mg) by mouth in the morning., Disp: 90 tablet, Rfl: 2 levothyroxine (Synthroid, Levoxyl) 100 mcg tablet, Take 100 mcg by mouth in the morning., Disp: , Rfl: liothyronine (Cytomel) 25 mcg tablet, Take 25 mcg by mouth in the morning., Disp: , Rfl: lisinopril 20 mg tablet, Take 1 tablet (20 mg) by mouth in the morning., Disp: 90 tablet, Rfl: 3 nitroglycerin (Nitrostat) 0.4 mg SL tablet, Sublingual, Disp: , Rfl: pantoprazole (ProtoNix) 40 mg EC tablet, Take 40 mg by mouth in the morning., Disp: , Rfl: potassium chloride CR (Klor-Con) 10 mEq ER tablet, Take 10 mEq by mouth every other day., Disp: , Rfl: sertraline (Zoloft) 100 mg tablet, Take 100 mg by mouth in the morning., Disp: , Rfl: spironolactone (Aldactone) 25 mg tablet, Take 1 tablet (25 mg) by mouth in the morning., Disp: 90 tablet, Rfl: 3 tiZANidine (Zanaflex) 4 mg tablet, Take 4 mg by mouth in the morning, afternoon, and at bedtime., Disp: , Rfl: Trelegy Ellipta 100-62.5-25 mcg blister with device, , Disp: , Rfl: Last Recorded Vitals BP 143/88 (BP Location: Left arm, Patient Position: Sitting) Pulse (!) 113 Ht 1.727 m (5' 8 ) Wt 54.4 kg (120 lb) SpO2 94% BMI 18.25 kg/m??? Physical Examination: GENERAL: alert and oriented x3, well developed, in no acute distress. HEAD: atraumatic, normocephalic. EYES: JUSTA, EOMI. NECK: trachea midline, no JVD present, no carotid bruits present. CARDIAC: S1, S2 present. RRR. No murmur, rubs, or gallops. RESPIRATORY: CTAB, no increased effort of breathing, no rales, rhonchi, or wheezing. ABDOMEN: soft, nontender, nondistended. EXTREMITIES: no lower extremity edema, peripheral pulses are 2+ bilaterally. No rash/skin discoloration present. NEURO: strength/sensation equal and symmetric in bilateral upper and lower extremities. PSYCH: appropriate mood, affect, and judgement. Investigations: Echocardiogram 03/15/2021 Normal global left ventricular systolic function, bioprosthetic valve in the aortic position with normal function. Mild mitral and tricuspid regurgitation. Normal right-sided pressures. Lexiscan stress test 03/16/2021 A small area of very mild decreased but reversible defect in the inferior lateral wall involving the mid and distal aspect. This does not appear significantly changed. Normal wall motion with ejection (more content not included)... Normal [facility] MAGNESIUMon 07-19-2023 Magnesium [Mass/Vol] 1.6 mg/dL Low 1.9-2.7 [facility] Comment on above: Performed By: #### L [id number] ####[facility] ([facility])[address] [place] [address] Office Visiton 07-19-2023 Follow-up visit [id number] Darek Mejía 1950 F Date Provider Department Center 07/19/2023 Areli[facility] Family History Problem Relation Age of Onset Coronary artery disease Father Diabetes Father Family Status - Relation Status Age at Father Level of Service:19384 MO OFFICE/OUTPATIENT ESTABLISHED HIGH MDM 40-54 MIN Normal [facility] T4, FREEon 07-19-2023 THYROXINE (T4) FREE (NG/DL) IN SER/PLAS 1.31 ng/dL Normal 0.71-1.85 [facility] Comment on above: Performed By: #### L [id number] #### [facility] ([facility]) [address] [place] [address] TSH3 REFLEX TO FT4on 023 THYROTROPIN (MIU/L) IN SER/PLAS BY DETECTION LIMIT <= 0.05 MIU/L 0.06 mIU/L Low 0.34-5.60 [facility] Comment on above: Performed By: #### L [id number] #### [facility] ([facility]) [address] [place] [address] 36on 07-02-2023 36 Sandy just did patien t's echo. She came over to the office to make us aware that she sounded like she was in afib, and patient didn't recall ever being told she had this. She did ECG. I have assigned it to you in media liaison officer. Please advise. Thanks. [facility] Office Visiton 04-23-2023 Follow-up visit [id number] Yaquelin Mejíae 1950 F Date Provider Department Center 04/23/2023 OPAL VIVEROS Family History Problem Relation Age of Onset Coronary artery disease Father Diabetes Father Family Status - Relation Status Age at Father Level of Service:14628 MO OFFICE/OUTPATIENT ESTABLISHED MOD MDM 30-39 MIN [facility] Office Visiton 01-31-2023 Follow-up visit [id number] Toro Mejíaanette 1950 F Date Provider Department Center 01/31/2023 [place] Family History Problem Relation Age of Onset Coronary artery disease Father Diabetes Father Family Status - Relation Status Age at Father Level of Service:73035 MO OFFICE/OUTPATIENT ESTABLISHED MOD MDM 30-39 MIN [facility] 36on 01-11-2023 36 I am putting in a script for aldactone, then she needs BMP in 1 week to assess renal function and potassium level. Have her f/U in 2-4 weeks to review b/p please [facility] Orders Onlyon 01-11-2023 Orders Only [id number] MayelinjocelyneToro rosarioDarek 1950 F Date Provider Department Center 01/11/2023 [place] Family History Problem Relation Age of Onset Coronary artery disease Father Diabetes Father Family Status - Relation Status Age at Father [facility] 36on 01-10-2023 35 . [facility] Office Visiton 12-21-2022 Follow-up visit [id number] Toro Mejíaanette 1950 F Date Provider Department Center 12/21/2022 [place] Family History Problem Relation Age of Onset Coronary artery disease Father Diabetes Father Family Status - Relation Status Age at Father Level of Service:68755 MO OFFICE/OUTPATIENT ESTABLISHED MOD MDM 30-39 MIN Reason for Visit and Comments: Coronary Artery Disease [187] Congestive Heart Failure [127] Hypertension [836664] Normal [facility] FREE T3on 11-30-2022 FREE T3 2.19 pg/mlL Normal 2.18-3.98 [facility] Comment on above: Performed By: #### T 4, FT3, TSH #### [facility] [address] [address] [address] Rich Pham T4on 11-30-2022 T4 [Mass/Vol] 11.10 ug/dL Normal 4.80-13.90 [facility] Comment on above: Performed By: #### T 4, FT3, TSH #### [facility] [address] [address] [address] Rich Pham TSHon 11-30-2022 TSH 0.525 uIU/mL Normal 0.358-3.740 [facility] Comment on above: Performed By: #### T 4, FT3, TSH #### [facility] [address] [place] [address] Dr. Rich Pham ANES POSTPROC EVALon 023 ANES POSTPROC EVAL HNO ID: [id number] Author: David Dunn II, DO Service: Anesthesiology Author Type: Anesthesiologist Type: Anesthesia Postprocedure Evaluation Filed: 11/01/2022 12:35 PM Note Text: POST ANESTHESIA EVALUATION NOTE : 1950 Procedure Summary Date: 11/01/22 Room / Location: [address] Anesthesia Start: 1109 Anesthesia Stop: 1130 Procedures: PHACOEMULSIFICATION CATARACT IMPLANT INTRAOCULAR LENS W/O ENDOSCOPIC CYCLOPHOTOCOAGULATION (Left: Eye) OPHTHALMIC BIOMETRY BY PARTIAL COHERENCE INTERFEROMETRY W/INTRAOCULAR LENS POWER CALCULATION (Left: Eye) Diagnosis: Combined forms of age-related cataract of left eye (Combined forms of age-related cataract of left eye [H25.812]) Surgeons: Aleksandar Wilson V, MD Responsible Provider: David Dunn II, DO Anesthesia Type: MAC ASA Status: 3 Anesthesia Type: MAC Last Vitals Vitals Value Taken Time BP 165/74 11/01/22 1137 Temp 37 ?C (98.6 ?F) 11/01/22 1130 Pulse 57 11/01/22 1137 Resp 16 11/01/22 1137 SpO2 98 % 11/01/22 1137 Post Anesthesia Patient Status Patient Evaluation: PACU. PACU/ICU Patient Condition: stable. Neurological Status: aware and responsive. Pulmonary Status: breathing comfortably on room air Airway Control: returned to baseline unsupported. Cardiovascular Status: stable. Pain Management: clinically adequate Postoperative Hydration: acceptable. Intraoperative Events: no significant anesthesia events Post Operative Nausea/Vomiting Status: no significant post operative nausea or vomiting Recommendation: continue current plan of care. Anesthesia Observations No Documentation SIGNATURE: David Dunn II, DO PATIENT NAME: Darek Mejía DATE: November 01, 2022 TIME: 12:35 PM CSN: [id number] Normal [facility] ANES PRE-OPon 11-01-2022 ANES PRE-OP HNO ID: [id number] Author: David Dunn II, DO Service: Anesthesiology Author Type: Anesthesiologist Type: Anesthesia Preprocedure Evaluation Filed: 11/01/2022 10:15 AM Note Text: ANESTHESIOLOGY DAY OF SURGERY NOTE : 1950 Procedure Information Date/Time: 11/01/22 1100 Procedures: PHACOEMULSIFICATION CATARACT IMPLANT INTRAOCULAR LENS W/O ENDOSCOPIC CYCLOPHOTOCOAGULATION (Left: Eye) OPHTHALMIC BIOMETRY BY PARTIAL COHERENCE INTERFEROMETRY W/INTRAOCULAR LENS POWER CALCULATION (Left: Eye) Location: [address] Surgeons: Aleksandar Wilson V, MD Estimated body mass index is 21.31 kg/m? as calculated from the following: Height as of 10/30/22: 167.6 cm (5' 6 ). Weight as of 10/30/22: 59.9 kg (132 lb). Most recent hematocrit and potassium results: Hematocrit 33.6 01/28/2020 Potassium 3.5 01/28/2020 Relevant Problems CARDIO (+) Atherosclerosis of [place] coronary artery of [place] heart without angina pectoris (+) CHF (congestive heart failure) (HCC) (+) Coronary artery disease involving coronary bypass graft of [place] heart with angina pectoris (HCC) (+) Dissection of ascending aorta (HCC) (+) Hx of CABG (+) Nonrheumatic aortic valve insufficiency (+) Primary hypertension (+) Severe aortic regurgitation GI (+) GERD (gastroesophageal reflux disease) PULMONARY (+) Other emphysema (HCC) I - PHYSICAL EVALUATION AIRWAY Patient intubated: No. Tracheostomy tube not present Mallampati: II. TM distance: >3 FB. Neck ROM: limited extension. Mouth opening: adequate. Short neck: no. Thick neck: no DENTAL Dentures, upper: partial. Additional exam findings: yes. CARDIOVASCULAR Rhythm: regular Rate: normal PULMONARY Breath sounds clear to auscultation. II - ANESTHESIA PLAN ASA Score: 3 Anesthetic Plan: MAC The patient is not a current smoker. NPO Status: adequate Beta Jose Monitoring Plan Monitoring plan: standard ASA. Post Procedure Analgesic Plan Postoperative analgesic plan: parenteral or oral opioids. Informed Consent Anesthetic risks, benefits, alternatives, personnel and consent discussed: yes. Patient / Responsible Alliance Party agrees to proceed: yes Patient / Surrogate agrees to blood products: Yes No vitals data found for the desired time range. No current facility-administered medications on file as of 11/01/2022. Outpatient Medications as of 11/01/2022 Medication Sig - prednisoLONE acetate (PRED FORTE, ECONOPRED PLUS) 1 % ophthalmic suspension USE DIRECTED BY PHYSICIAN, IN OPERATIVE EYE, BEGINNING ONE DAY AFTER SURGERY - keTORolac (ACULAR) 0.5 % ophthalmic solution USE DIRECTED BY PHYSICIAN, IN OPERATIVE EYE, BEGINNING ONE DAY AFTER SURGERY - Cholecalciferol, Vitamin D3, 50 mcg (2,000 unit) cap cholecalciferol (vitamin D3) 50 mcg (2,000 unit) capsule TAKE 1 CAPSULE BY MOUTH EVERY DAY - TRELEGY ELLIPTA 100-62.5-25 mcg inhalation powder INHALE 1 PUFF BY MOUTH EVERYDAY *RINSE MOUTH AFTER USE* - liothyronine (CYTOMEL) 5 mcg tablet Take 10 mcg by mouth once daily. - lisinopril (ZESTRIL, PRINIVIL) 20 mg tablet - prednisoLONE acetate (PRED FORTE, ECONOPRED PLUS) 1 % ophthalmic suspension USE DIRECTED BY PHYSICIAN, IN OPERATIVE EYE, BEGINNING ONE DAY AFTER SURGERY - carvedilol (COREG) 12.5 mg tablet carvedilol 12.5 mg tablet Take 1 tablet twice a day by oral route. - pantoprazole DR (PROTONIX) 40 mg tablet pantoprazole 40 mg tablet,delayed release TAKE 1 TABLET BY MOUTH EVERY DAY - potassium chloride ER (K-DUR, KLOR-CON) 10 mEq tablet q 24 HR. - tiZANidine (ZANAFLEX) 4 mg tablet tizanidine 4 mg tablet TAKE 1 TABLET BY MOUTH THREE TIMES DAILY - atorvastatin (LIPITOR) 40 mg tablet Take by mouth q 24 HR. - sertraline (ZOLOFT) 100 mg tablet Take 100 mg by mouth once daily. - furosemide (LASIX) 20 mg tablet TAKE 1 TABLET BY MOUTH ONCE DAILY FOR 7 DAYS. - aspirin 81 mg chewable tablet CHEW AND SWALLOW 1 TABLET BY MOUTH ONCE DAILY. I have interviewed and examined the patient. I have reviewed the medical record and/or the pre-anesthesia evaluation, pertinent labs, and test results. This contains updated information obtained within 48 hours of Surgery/Procedure. SIGNATURE: David Dunn II, DO PATIENT NAME: Darek Mejía DATE: November 01, 2022 TIME: 10:09 AM CSN: [id number] Normal [facility] OPERATIVE NOon 11-01-2022 OPERATIVE NO HNO ID: [id number] Author: Aleksandar Wilson V, MD Service: Ophthalmology Author Type: Physician Type: Operative Report Filed: 11/01/2022 11:43 AM Note Text: OPERATIVE REPORT DATE OF SERVICE: November 01, 2022 PRIMARY SURGEON: Aleksandar Wilson M.D. BAND SAWYER: None Procedure(s) (LRB): PHACOEMULSIFICATION CATARACT IMPLANT INTRAOCULAR LENS W/O ENDOSCOPIC CYCLOPHOTOCOAGULATION (Left) OPHTHALMIC BIOMETRY BY PARTIAL COHERENCE INTERFEROMETRY W/INTRAOCULAR LENS POWER CALCULATION (Left) ANESTHESIA: Topical with monitored anesthesia care. PREOPERATIVE DIAGNOSIS: Combined cataract POSTOPERATIVE DIAGNOSIS: Combined cataract, presbyopia OPERATIVE INDICATIONS: BAT 20/400 OPERATIVE PROCEDURE: The patient was admitted to the operating suite where an IV and BP, EKG, and O2 monitors were placed. Nasal oxygen was administered. The operative eye was confirmed, marked, then pretreated with 2.5% tropicamide and 1% phenylephrine eye drops. With the patient in the supine position, topical lidocaine gel 2% was placed in a small ribbon in the lower cul-de-sac. The patient was then prepped and draped in the usual sterile fashion for intraocular surgery. After a time-out confirming correct patient, correct eye, correct operation, presence of allergies, and correct implant, an eyelid speculum was placed. Under the operating microscope a beveled clear corneal incision was created temporally with a [place] blade then a 2.4 mm keratome. The anterior chamber was reformed with Viscoat, after which the anterior capsule was opened centrally. Using the Utrata forceps a continuous curvilinear capsulorrhexis of approximately 5.5 mm round was created. Gentle hydrodissection was accomplished using preservative-free lidocaine on a 27-gauge cannula. Using the Renny phacoemulsification unit with the [employer] curved tip, the anterior chamber was entered and the nucleus was removed while it was in the bag. The epinuclear ring was dissected into several segments, then removed using the phacoemulsification unit set to the desired aspiration flow rate and ultrasound parameters. It was necessary to use chopper forceps at various intervals to aid in the fragmentation of the dense lens material. Great care was taken not to violate the posterior capsule. The silicone-tipped I and A instrument was used to remove the cortex and buff off any remaining cataractous material from the posterior capsule. The capsular bag was then reformed with Discovisc and the following Intraocular lens implant Implant Name Type Inv. Item Serial No. Tank Bottom Assembler Lot No. LRB No. Used Action Model No. LENS IOL 0D +21 [employer] - [id number] Intraocular Lens LENS IOL 0D +21 [employer] [id number] [employer] Left 1 Implanted [id number] was inserted through the lips of the wound into the capsular bag. Using the I and A instrument, the Discovisc was removed from the anterior chamber and capsular bag, and the implant was centered. Cefuroxime 1mg in 0.1 mL normal saline was introduced into the anterior chamber through the clear corneal incision using a 30 gauge cannula. The wound was checked and found to be watertight. At the end of the procedure, the cornea was clear, the anterior chamber was deep and clear, the pupil was round, the implant was centered within the capsular bag, and the posterior capsule was intact. The eyelid speculum was removed and prednisolone acetate 1% and timolol 0.5% eye drops were administered. A shield was affixed over the eye and the patient was sent to the recovery room, leaving the operating room in excellent condition. ESTIMATED BLOOD LOSS: <1mL SPECIMEN: None FINDINGS: Age-related cataract COMPLICATIONS: None Incision/Procedure Start Time: 11:17 AM Incision Close/Procedure End Time: 11:26 AM - Comanage with Dr Mccollum; relinquish care POD #1 Aleksandar WILSON MD Normal [facility] FREE T3on 10-30-2022 FREE T3 2.77 pg/mlL Normal 2.18-3.98 [facility] Comment on above: Performed By: #### F T3, TSH, BNP, T4 #### [facility] [address] [address] [address] Rich Pham HISTORY PHYSICALon HISTORY PHYSICAL HNO ID: [id number] Author: Apple Gomez APRN.CORDUROY CUTTER OPERATOR Service: ? Author Type: Nurse Practitioner Type: HANDP Filed: 10/30/2022 3:37 PM Note Text: HISTORY AND PHYSICAL EXAMINATION SERVICE DATE: 10/30/2022 SERVICE TIME: 2:44 PM PRIMARY CARE PHYSICIAN: Kayleigh Gay MD, MD REASON FOR VISIT: Darek Mejía is a 72 year old female who is scheduled for Left Cataract at the request of Dr. Aleksandar Wilson V for consultation. My final recommendation will be communicated back to the requesting physician by way of shared medical record or letter. 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 Found to have cataract on exam. Denies pain. No relieving factors. PAST MEDICAL HISTORY Diagnosis Date Abdominal aortic aneurysm (HCC) Arthritis Breast cancer (HCC) left Bronchitis CAD (coronary artery disease) DDD (degenerative disc disease), cervical DDD (degenerative disc disease), lumbar Dyslipidemia 06/22/2015 GERD (gastroesophageal reflux disease) Heart attack (HCC) Unsure of when it was, present on EKG. Ischemic heart disease, chronic 08/24/2015 Smoking addiction 06/22/2015 Spinal stenosis in cervical region Spondylosis of cervical spine PAST SURGICAL HISTORY Procedure Laterality Date ABD AORTIC ANEURYSM REPAIR 01/2020 APPENDECTOMY BREAST CANCER DX MIN INVSIVE Left CABG X5 VENOUS GRAFTS ONLY 07/20/2015 COLONOSCOPY GEN ANES CYSTO W DIL OF URETHRAL STRICT HEART CATHETERIZATION 2004 at [facility] KIDNEY STONE SURGERY HX MASTECTOMY HX bilat 2005 S STRATASIS URETHRAL SLING 2X30 VAGINAL HYSTERECTOMY W PLATE CERVICAL SPINE FAMILY HISTORY Problem Relation Age of Onset Cancer Mother Diabetes Father Coronary Artery Disease Father Heart Father Hypertension Father Cancer Brother Hypertension Sister Hypertension Sister SOCIAL HISTORY: Social History Tobacco Use Smoking status: Every Day Packs/day: 0.50 Types: Cigarettes Start date: 1963 Smokeless tobacco: Never Vaping Use Vaping Use: current everyday user Substance Use Topics Alcohol use: Yes Comment: rare/social Drug use: No Comment: denies tx for drug/alcohol abuse in the past. Prior to Admission medications as of 10/30/22 1446 Medication Sig Last Dose Taking Cholecalciferol, Vitamin D3, 50 mcg (2,000 unit) cap cholecalciferol (vitamin D3) 50 mcg (2,000 unit) capsule TAKE 1 CAPSULE BY MOUTH EVERY DAY Yes TRELEGY ELLIPTA 100-62.5-25 mcg inhalation powder INHALE 1 PUFF BY MOUTH EVERYDAY *RINSE MOUTH AFTER USE* Yes liothyronine (CYTOMEL) 5 mcg tablet Take 10 mcg by mouth once daily. Yes lisinopril (ZESTRIL, PRINIVIL) 20 mg tablet Yes prednisoLONE acetate (PRED FORTE, ECONOPRED PLUS) 1 % ophthalmic suspension USE DIRECTED BY PHYSICIAN, IN OPERATIVE EYE, BEGINNING ONE DAY AFTER SURGERY Yes carvedilol (COREG) 12.5 mg tablet carvedilol 12.5 mg tablet Take 1 tablet twice a day by oral route. Yes pantoprazole DR (PROTONIX) 40 mg tablet pantoprazole 40 mg tablet,delayed release TAKE 1 TABLET BY MOUTH EVERY DAY Yes potassium chloride ER (K-DUR, KLOR-CON) 10 mEq tablet q 24 HR. Yes tiZANidine (ZANAFLEX) 4 mg tablet tizanidine 4 mg tablet TAKE 1 TABLET BY MOUTH THREE TIMES DAILY Yes atorvastatin (LIPITOR) 40 mg tablet Take by mouth q 24 HR. Yes sertraline (ZOLOFT) 100 mg tablet Take 100 mg by mouth once daily. Yes furosemide (LASIX) 20 mg tablet TAKE 1 TABLET BY MOUTH ONCE DAILY FOR 7 DAYS. Yes aspirin 81 mg chewable tablet CHEW AND SWALLOW 1 TABLET BY MOUTH ONCE DAILY. Yes therapeutic multivitamin (THERA VITAMIN) tablet Take 1 tablet by mouth daily with breakfast. No medication comments found. ALLERGIES Allergen Reactions Tetanus Toxoid Adso* Other: See Comments CRITICAL REACTION Allopurinol Intolerance Ismo [Isosorbide Mo* Intolerance Severe head ache Tetanus And Diphthe* Intolerance COVID VACCINATION STATUS: Fully vaccinated REVIEW OF SYSTEMS: PAIN ASSESSMENT: General: No weight loss, malaise or fevers. 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 Normal [facility] T4on 10-30-2022 T4 [Mass/Vol] 3.40 ug/dL Critically low 4.80-13.90 [facility] Comment on above: Performed By: #### F T3, TSH, BNP, T4 #### [facility] [address] [address] [address] Rich Pham TSHon 10-30-2022 TSH 2.102 uIU/mL Normal 0.358-3.740 [facility] Comment on above: Performed By: #### F T3, TSH, BNP, T4 #### [facility] [address] [address] [address] Rich Pham [facility] DAREK MEJÍA ([id number]) 1950 F Date Time Provider Department 10/18/22 [facility] During your visit today, we recorded the following information about you: Haven Moreno LPN 10/18/2022 1:19 PM Signed Called patient to find out if she was coming in for [facility] appointment. Patient states she called and canceled appointment earlier in the day. I gave her Dr. Wilson's schedulers contact number to reschedule. Please assist patient. Haven Moreno LPN October 18, 2022 1:18 PM Rayna Garcia Mario 10/18/2022 1:30 PM Signed Called and spoke with patient she has no car/ride for appointment today she has been rescheduled to 10/30 Allergies As of Date: 10/18/2022 Noted Allergy Reaction TETANUS TOXOID ADSORBED 06/21/2015 14 - Other: See Comments Comments: CRITICAL REACTION ALLOPURINOL 06/09/2015 5 - Intolerance ISMO (ISOSORBIDE MONONITRATE) 11/05/2015 5 - Intolerance Comments: Severe head ache TETANUS AND DIPHTHER. TOX (PF) 04/15/2018 5 - Intolerance Date Reviewed: 08/15/2022 Reviewed by: Jean-Claude Miles OD - Fully Assessed Reason for Visit: Appointment [[id number]] Prescriptions as of 10/18/2022 - Cholecalciferol, Vitamin D3, 50 mcg (2,000 unit) cap cholecalciferol (vitamin D3) 50 mcg (2,000 unit) capsule TAKE 1 CAPSULE BY MOUTH EVERY DAY - TRELEGY ELLIPTA 100-62.5-25 mcg inhalation powder INHALE 1 PUFF BY MOUTH EVERYDAY *RINSE MOUTH AFTER USE* - liothyronine (CYTOMEL) 5 mcg tablet Take 10 mcg by mouth once daily. - lisinopril (ZESTRIL, PRINIVIL) 20 mg tablet - prednisoLONE acetate (PRED FORTE, ECONOPRED PLUS) 1 % ophthalmic suspension USE DIRECTED BY PHYSICIAN, IN OPERATIVE EYE, BEGINNING ONE DAY AFTER SURGERY - carvedilol (COREG) 12.5 mg tablet carvedilol 12.5 mg tablet Take 1 tablet twice a day by oral route. - pantoprazole DR (PROTONIX) 40 mg tablet pantoprazole 40 mg tablet,delayed release TAKE 1 TABLET BY MOUTH EVERY DAY - potassium chloride ER (K-DUR, KLOR-CON) 10 mEq tablet q 24 HR. - tiZANidine (ZANAFLEX) 4 mg tablet tizanidine 4 mg tablet TAKE 1 TABLET BY MOUTH THREE TIMES DAILY - atorvastatin (LIPITOR) 40 mg tablet Take by mouth q 24 HR. - sertraline (ZOLOFT) 100 mg tablet Take 100 mg by mouth once daily. - furosemide (LASIX) 20 mg tablet TAKE 1 TABLET BY MOUTH ONCE DAILY FOR 7 DAYS. - aspirin 81 mg chewable tablet CHEW AND SWALLOW 1 TABLET BY MOUTH ONCE DAILY. - therapeutic multivitamin (THERA VITAMIN) tablet (Discontinued) Take 1 tablet by mouth daily with breakfast. Problem List As Of Date 10/18/2022 Noted Resolved Smoking addiction [F17.200] 06/22/2015 Atherosclerosis of [place] coronary artery of na*06/22/2015 Mild left ventricular systolic dysfunction [I51*06/22/2015 Primary hypertension [I10] 06/22/2015 Abnormal nuclear stress test [R94.39] 06/22/2015 07/26/2015 Encounter for pre-operative cardiovascular eddie*06/22/2015 07/26/2015 Dyslipidemia [E78.5] 06/22/2015 07/26/2015 Coronary artery disease involving coronary bypa*07/19/2015 Cardiomyopathy, ischemic [I25.5] 07/19/2015 07/24/2015 Preop testing [Z01.818] 07/19/2015 07/24/2015 On mechanically assisted ventilation (HCC) [Z99*07/20/2015 07/23/2015 Stress hyperglycemia [R73.9] 07/20/2015 07/24/2015 Acute postoperative pain [G89.18] 07/20/2015 07/24/2015 Cardiac insufficiency following cardiac surgery*07/20/2015 01/14/2020 Postprocedural hypotension [I95.81] 07/21/2015 01/14/2020 Atelectasis [J98.11] 07/21/2015 Hypoxemia [R09.02] 07/22/2015 07/24/2015 Hypervolemia [E87.70] 07/23/2015 SUMMARY 07/24/2015 Hyperlipidemia LDL goal <70 [E78.5] 07/24/2015 CHF (congestive heart failure) (HCC) [I50.9] 07/24/2015 DISPOSITION AND FOLLOW-UP 07/24/2015 Ischemic heart disease, chronic [I25.9] 08/24/2015 Dissection of ascending aorta (HCC) [I71.010] 01/09/2020 VAN (acute kidney injury) (HCC) [N17.9] 01/09/2020 01/21/2020 Ischemic hepatitis [K72.00] 01/09/2020 01/16/2020 Nonrheumatic aortic valve insufficiency [I35.1] 01/09/2020 Leukocytosis [D72.829] 01/09/2020 01/16/2020 Hx of CABG [Z95.1] 01/10/2020 Severe aortic regurgitation [I35.1] 01/10/2020 Moderate protein-calorie malnutrition (HCC) [E4*01/11/2020 Summary [Z76.89] 01/15/2020 Pleural effusion [J90] 01/19/2020 Combined forms of age-related cataract of both *04/13/2021 Encounter Status:Closed by HAVEN MORENO on 10/18/22 Normal [facility] FREE T3on 08-30-2022 FREE T3 1.95 pg/mlL Critically low 2.18-3.98 [facility] Comment on above: Performed By: #### F T3, TSH, BNP, T4 #### [facility] [address] [address] [address] Rich Pham T4on 08-30-2022 T4 [Mass/Vol] 8.00 ug/dL Normal 4.80-13.90 [facility] Comment on above: Performed By: #### F T3, TSH, BNP, T4 #### [facility] [address] [address] [address] Rich Pham TSHon 08-30-2022 TSH 3.033 uIU/mL Normal 0.358-3.740 [facility] Comment on above: Performed By: #### F T3, TSH, BNP, T4 #### [facility] [address] [address] [address] Rich Pham ECHOCARDIO M/2D COMPLETEon 1 10-17-2021 ECHOCARDIO M/2D COMPLETE Patient: DAREK MEJÍA Exam Date: 08/16/2022 : 1950 Gender:F Ordering : [place] Admission #: [id number] Family : DR KAYLEIGH GAY . Order #: [id number] CLICK HERE TO VIEW EXAM ECHOCARDIOGRAM REPORT PROCEDURE: CARDIO PULMONARY ECHOCARDIO M/2D COMP INDICATIONS: CAD, HTN, S/P Bentall procedure 23 mm C-E Bovine,28 mm Gelweave graft hemiarch w/ 30 mm Gelweave graft revision CABG,TV repair,PFO closure 01/28/20,Smoker COMPARISON: None. DESCRIPTION: COMPLETE ECHOCARDIOGRAM Real-time transthoracic echocardiography with 2D, M-mode, spectral and color flow Doppler performed. QUALITY: Technical quality was good. 67 137# 144/70 HR LEFT VENTRICLE: Normal chamber size. Mild concentric left ventricular hypertrophy. LV EF: Global left ventricular systolic function is normal. Visual estimation of left ventricular ejection fraction is 65%. No significant wall motion abnormalities. DIASTOLIC: Diastolic function is indeterminate. ATRIAL SEPTUM: Intact atrial septum. Interatrial closure device without residual shunt. LEFT ATRIUM: Severe dilatation. RIGHT ATRIUM: Normal chamber size. RIGHT VENTRICLE: Normal chamber size. Normal right ventricular systolic function. TRICUSPID VALVE: Normal mobility and thickness. No stenosis with trivial regurgitation. No evidence of pulmonary hypertension. RVSP 30 mmHg MITRAL VALVE: Mildly thickened with normal mobility. No evidence of mitral valve stenosis. Mild mitral annular calcification. Mild mitral regurgitation. AORTIC VALVE: Bioprosthetic valve appears well seated in aortic position with mildly increased Doppler flows. DVI is 0.34. Unable to visualize aorta graft. Trivial aortic regurgitation. AORTIC ROOT: Aortic root is mildly dilated. Unable to visualize arch. PULMONIC VALVE: Normal thickness and mobility. No stenosis. Trivial regurgitation. PERICARDIUM: No evidence of pericardial effusion. IVC: Collapses with inspirations. IVC is normal in size. CONCLUSION: Global left ventricular systolic function is normal; visually estimated ejection fraction is 60 to 65%. Diastolic function is indeterminate. Mild left ventricular hypertrophy. An intra-atrial closure device is seen without residual shunt. The left atrium is severely dilated. Right ventricle is normal in size and systolic function. Mild mitral regurgitation. A bioprosthetic aortic valve is seen with mildly elevated Doppler flows. Aortic root is mildly dilated; unable to visualize aortic arch. Adult Echocardiography Procedure Report Left Ventricle LVEDD (3.7 - 5.6 cm): 4.71 cm LVESD (2.2 - 4.0 cm): 3.14 cm LVPW thickness (0.5 - 1.0 cm): 1.05 cm LVOT Max Gradient: 4.91 mm[Hg], 4.97 mm[Hg] Peak Velocity (LVOT): 1.11 m/s, 1.11 m/s Mean Velocity (LVOT): 0.73 m/s Left Ventricular Ejection Fraction: 61.90 %, 61.90 % Left Atrium LA Volume Index (2D A2C): 106.17 ml, 106.17 ml Left Atrium Systolic Dimension: 4.86 cm Mitral Valve MV E to A Ratio: 2.09 Mitral Valve A-Wave Peak Velocity: 0.52 m/s Mitral Valve E-Wave Peak Velocity: 1.09 m/s Right Ventricle RV Internal Diastolic Dimension: 3.88 cm Aorta AO Root Diam: 3.80 cm Aortic Valve Peak Velocity(Antegrade Flow): 2.87 m/s, 2.81 m/s, 3.19 m/s, 3.19 m/s Peak Gradient(Antegrade Flow): 32.88 mm[Hg], 31.57 mm[Hg], 40.65 mm[Hg], 40.65 mm[Hg] Mean Velocity(Antegrade Flow): 2.03 m/s, 1.96 m/s, 2.09 m/s Mean Gradient(Antegrade Flow): 18.45 mm[Hg], 17.42 mm[Hg], 20.13 mm[Hg] Velocity Time Integral: 68.14 cm, 76.77 cm, 86.36 cm Tricuspid Valve Peak Velocity (Regurgitant Flow): 2.58 m/s Peak Velocity: 0.51 m/s, 0.52 m/s Pulmonic Valve Peak Velocity: 0.90 m/s Peak Gradient: 3.22 mm[Hg] Right Atrium Dictated by: Opal Carvalho M.D. on 08/18/2022 at 16:24 Approved by: Opal Carvalho M.D. on 08/18/2022 at 16:30 Normal [facility] BNPon 07-24-2022 Natriuretic peptide B (Bld) [Mass/Vol] 1535.0 pg/mL Critically high <=900.0 [facility] Comment on above: Performed By: #### F T3, TSH, BNP, T4 #### [facility] [address] [place] [address] Dr. Rich Pham FREE T3on 07-24-2022 FREE T3 1.90 pg/mlL Critically low 2.18-3.98 [facility] Comment on above: Performed By: #### F T3, TSH, BNP, T4 #### [facility] [address] [place] [address] Dr. Rich Pham T4on 07-24-2022 T4 [Mass/Vol] 9.10 ug/dL Normal 4.80-13.90 [facility] Comment on above: Performed By: #### F T3, TSH, BNP, T4 #### [facility] [address] [place] [address] Dr. Rich Pham TSHon 07-24-2022 TSH 1.057 uIU/mL Normal 0.358-3.740 [facility] Comment on above: Performed By: #### F T3, TSH, BNP, T4 #### [facility] [address] [place] [address] Dr. Rich Pham INSULINon 06-20-2022 Insulin 7.0 uIU/mL Normal 2.6-24.9 [facility] Comment on above: Performed By: #### F T3, TSH, BNP, T4 #### [facility] [address] [place] [address] Dr. Rich Pham BNPon 06-19-2022 Natriuretic peptide B (Bld) [Mass/Vol] 962.0 pg/mL Critically high <=900.0 [facility] Comment on above: Performed By: #### F T3, TSH, BNP, T4 #### [facility] [address] [place] [address] Dr. Rich Pham CBC AUTO DIFFon 06-19-2022 BASO # 0.1 103/ul Normal 0.0-0.1 [facility] Comment on above: Performed By: #### F T3, TSH, BNP, T4 #### [facility] [address] [place] [address] Dr. Rich Pham Basophils/100 WBC (Bld) 1.3 % Normal 0.2-2.0 [facility] Comment on above: Performed By: #### F T3, TSH, BNP, T4 #### [facility] [address] [place] [address] Dr. Rich Pham EO # 0.1 103/ul Normal 0.0-0.7 [facility] Comment on above: Performed By: #### F T3, TSH, BNP, T4 #### [facility] [address] [place] [address] Dr. Rich Pham Eosinophils/100 WBC (Bld) 1.9 % Normal 0.9-7.0 [facility] Comment on above: Performed By: #### F T3, TSH, BNP, T4 #### [facility] [address] [place] [address] Dr. Rich Pham Erythrocyte distribution width (RBC) [Ratio] 13.7 % Normal 11.0-15.0 [facility] Comment on above: Performed By: #### F T3, TSH, BNP, T4 #### [facility] [address] [place] [address] Dr. Rich Pham Hematocrit (Bld) [Volume fraction] 39.5 % Normal 36.0-48.0 [facility] Comment on above: Performed By: #### F T3, TSH, BNP, T4 #### [facility] [address] [place] [address] Dr. Rich Pham Hemoglobin (Bld) [Mass/Vol] 12.7 g/dL Normal 12.0-16.0 [facility] Comment on above: Performed By: #### F T3, TSH, BNP, T4 #### [facility] [address] [place] [address] Dr. Rich Pham IG # 0.03 10e3/ul Normal 0.00-0.03 [facility] Comment on above: Performed By: #### F T3, TSH, BNP, T4 #### [facility] [address] [place] [address] Dr. Rich Pham IG % 0.4 % Normal 0.0-0.5 [facility] Comment on above: Performed By: #### F T3, TSH, BNP, T4 #### [facility] [address] [place] [address] Dr. Rich Pham LYMPH # 2.5 103/ul Normal 1.2-3.8 [facility] Comment on above: Performed By: #### F T3, TSH, BNP, T4 #### [facility] [address] [address] [address] Rich Pham Lymphocytes/100 WBC (Bld) 32.8 % Normal 20.5-60.0 [facility] Comment on above: Performed By: #### F T3, TSH, BNP, T4 #### [facility] [facility] [address] [place] [address] Dr. Rich Pham MANUAL DIFF REQ NO Normal [facility] Comment on above: Performed By: #### F T3, TSH, BNP, T4 #### [facility] [address] [address] [address] Rich Pham MCH (RBC) [Entitic mass] 28.5 pg Normal 26.7-34.0 [facility] Comment on above: Performed By: #### F T3, TSH, BNP, T4 #### [facility] [address] [place] [address] Dr. Rich Pham MCHC (RBC) [Mass/Vol] 32.2 g/dL Normal 29.9-35.2 [facility] Comment on above: Performed By: #### F T3, TSH, BNP, T4 #### [facility] [address] [place] [address] Dr. Rich Pham MCV (RBC) [Entitic vol] 88.6 fL Normal 81.0-99.0 [facility] Comment on above: Performed By: #### F T3, TSH, BNP, T4 #### [facility] [address] [place] [address] Dr. Rich Pham MONO # 0.6 103/ul Normal 0.3-0.8 [facility] Comment on above: Performed By: #### F T3, TSH, BNP, T4 #### [facility] [address] [place] [address] Dr. Rich Pham Monocytes/100 WBC (Bld) 7.6 % Normal 1.7-12.0 [facility] Comment on above: Performed By: #### F T3, TSH, BNP, T4 #### [facility] [address] [address] [address] Rich Pham NEUT # 4.2 103/ul Normal 1.4-6.5 [facility] Comment on above: Performed By: #### F T3, TSH, BNP, T4 #### [facility] [address] [address] [address] Rich Pham Neutrophils/100 WBC (Bld) 56.0 % Normal 43.0-75.0 [facility] Comment on above: Performed By: #### F T3, TSH, BNP, T4 #### [facility] [address] [address] [address] Rich Pham Platelet mean volume (Bld) [Entitic vol] 10.4 fL Normal 9.5-13.5 [facility] Comment on above: Performed By: #### F T3, TSH, BNP, T4 #### [facility] [address] [place] [address] Dr. Rich Pham PLT 253 103/ul Normal 150-450 [facility] Comment on above: Performed By: #### F T3, TSH, BNP, T4 #### [facility] [address] [address] [address] Rich Pham RBC 4.46 106/ul Normal 4.20-5.40 [facility] Comment on above: Performed By: #### F T3, TSH, BNP, T4 #### [facility] [address] [place] [address] Dr. Rich Pham WBC 7.5 103/ul Normal 4.0-11.0 [facility] Comment on above: Performed By: #### F T3, TSH, BNP, T4 #### [facility] [address] [place] [address] LUNG CANCER SCREENINGon CT LUNG CANCER SCREENING EXAMINATION: CT LUNG CANCER SCREENING HISTORY: Nicotine dependence COMPARISON: CT lung cancer screening 06/16/2021 TECHNIQUE: Axial, Coronal, and Sagittal images were created without the administration of IV contrast material. Dose reduction techniques were achieved by using automated exposure control and/or adjustment of mA and/or kV according to patient size and/or use of iterative reconstruction technique. FINDINGS: LUNGS: Marked emphysematous changes and a few small stable nodules scattered within the lungs; largest is 4 mm. Mild scarring within posterior right lung base, unchanged. PLEURA: No mass, effusion, or pneumothorax. VASCULATURE: No abnormality. LASHA: No mass or pathologic adenopathy. MEDIASTINUM: No mass or pathologic adenopathy. CARDIAC: No enlargement, pericardial thickening, or significant calcification. AORTA: Prior aortic valve replacement. No appreciable aneurysm or dissection. CHEST WALL: No mass or axillary adenopathy BONES: No bone lesion or fracture. LIMITED ABDOMEN: No suspicious findings. Limited images of the upper abdomen. OTHER: Negative. IMPRESSION: 1. Lung-RADS 2- Benign Appearance or Behavior. Nodules with a very low likelihood of becoming a clinically active cancer due to size or lack of growth. Follow-up CT Chest in 1 year. 2. Marked emphysematous changes. Electronically authenticated by: VASU EVANS Date: 2022-06-19 21:05 Normal [facility] FREE THYROXINE INDEX T7on FTI 2.24 Normal 1.30-4.50 [facility] Comment on above: Performed By: #### F T3, TSH, BNP, T4 #### [facility] [address] [address] [address] Rich Pham T3U 33.0 % Normal 30.0-39.0 [facility] Comment on above: Performed By: #### F T3, TSH, BNP, T4 #### [facility] [address] [address] [address] Rich Pham T4 [Mass/Vol] 6.80 ug/dL Normal 4.80-13.90 [facility] Comment on above: Performed By: #### F T3, TSH, BNP, T4 #### [facility] [address] [address] [address] Rich Pham GLYCOHEMOGLOBIN A1Con 2021 ADA RECOMMENDATION SEE BELOW Normal [facility] Comment on above: Result Comment: ADA RECOMMENDED LIMIT 4.0 - 6.0 ADA THERAPEUTIC TARGET < 7.0 ACTION SUGGESTED > 7.0 Performed By: #### F T3, TSH, BNP, T4 #### [facility] [address] [address] [address] Rich Pham Glucose [Mass/Vol] 117 mg/dL Normal [facility] Comment on above: Performed By: #### F T3, TSH, BNP, T4 #### [facility] [address] [address] [address] Rich Pham HbA1c (Bld) [Mass fraction] 5.7 % Normal 4.5-6.2 [facility] Comment on above: Performed By: #### F T3, TSH, BNP, T4 #### [facility] [address] [address] [address] Rich Pham IRONon 06-19-2022 Iron [Mass/Vol] 50.0 ug/dL Normal 50.0-170.0 [facility] Comment on above: Performed By: #### I IAM HARO #### [facility] [address] [place] [address] Dr. Rich Pham LIPID PROFILEon 06-19-2022 CHOL-HDL RATIO NORM SEE BELOW Normal [facility] Comment on above: Result Comment: 3.3 - 4.4 LOW RISK 4.4 - 7.1 AVERAGE RISK 7.1 - 11.0 MODERATE RISK >11.0 HIGH RISK Performed By: #### F T3, TSH, BNP, T4 #### [facility] [address] [place] [address] Dr. Rich Pham Cholesterol [Mass/Vol] 142 mg/dL Normal <=200 [facility] Comment on above: Performed By: #### F T3, TSH, BNP, T4 #### [facility] [address] [place] [address] Dr. Rich Pham Cholesterol in HDL [Mass/Vol] 52 mg/dL Normal 40-60 [facility] Comment on above: Performed By: #### F T3, TSH, BNP, T4 #### [facility] [address] [address] [address] Rich Pham Cholesterol in LDL [Mass/Vol] 78.8 mg/dL Normal [facility] Comment on above: Performed By: #### F T3, TSH, BNP, T4 #### [facility] [address] [address] [address] Rich Pham Cholesterol.total/Ch olesterol in HDL [Mass ratio] 2.7 {ratio} Normal [facility] Comment on above: Performed By: #### F T3, TSH, BNP, T4 #### [facility] [address] [address] [address] Rich Pham HDL NORMAL > or = 60 mg/dl - LO W CARDIOVASCULAR RISK <40 mg/dl - HIGH CARDIOVASCULAR RISK Normal [facility] Comment on above: Performed By: #### F T3, TSH, BNP, T4 #### [facility] [address] [address] [address] Rich Pham LDL CALC NORMAL SEE BELOW Normal [facility] Comment on above: Result Comment: <100 mg/dl OPTIMAL 100 - 129 mg/dl NEAR OR ABOVE OPTIMAL 130 - 159 mg/dl BORDERLINE HIGH 160 - 189 mg/dl HIGH >190 mg/dl VERY HIGH Performed By: #### F T3, TSH, BNP, T4 #### [facility] [address] [address] [address] Rich Pham Triglyceride [Mass/Vol] 56 mg/dL Normal <=150 [facility] Comment on above: Performed By: #### F T3, TSH, BNP, T4 #### [facility] [address] [address] [address] Rich Pham VLDL CALC 11.2 mg/dL Normal [facility] Comment on above: Performed By: #### F T3, TSH, BNP, T4 #### [facility] [address] [address] [address] Rich Pham PROF 14(COMP METB)on 022 Albumin [Mass/Vol] 3.5 g/dL Normal 3.4-5.0 [facility] Comment on above: Performed By: #### F T3, TSH, BNP, T4 #### [facility] [address] [address] [address] Rich Pham Albumin/Globulin [Mass ratio] 0.9 {ratio} Normal [facility] Comment on above: Performed By: #### F T3, TSH, BNP, T4 #### [facility] [address] [address] [address] Rich Pham ALP [Catalytic activity/Vol] 95 U/L Normal 46-116 [facility] Comment on above: Performed By: #### F T3, TSH, BNP, T4 #### [facility] [address] [address] [address] Rich Pham ALT [Catalytic activity/Vol] 22 U/L Normal 14-59 [facility] Comment on above: Performed By: #### F T3, TSH, BNP, T4 #### [facility] [address] [address] [address] Rich Pham Anion gap [Moles/Vol] 11.3 mmol/L Normal [facility] Comment on above: Performed By: #### F T3, TSH, BNP, T4 #### [facility] [address] [place] [address] Dr. Rich Pham AST [Catalytic activity/Vol] 21 U/L Normal 15-37 [facility] Comment on above: Performed By: #### F T3, TSH, BNP, T4 #### [facility] [address] [address] [address] Rich Pham Bilirubin [Mass/Vol] 0.4 mg/dL Normal 0.2-1.0 [facility] Comment on above: Performed By: #### F T3, TSH, BNP, T4 #### [facility] [address] [address] [address] Rich Pham Calcium [Mass/Vol] 10.4 mg/dL Critically high 8.5-10.1 T [facility] Comment on above: Performed By: #### F T3, TSH, BNP, T4 #### [facility] [address] [address] [address] Rich Pham Chloride [Moles/Vol] 105 mmol/L Normal 98-107 [facility] Comment on above: Performed By: #### F T3, TSH, BNP, T4 #### [facility] [address] [address] [address] Rich Pham CO2 [Moles/Vol] 27.8 mmol/L Normal 21.0-32.0 [facility] Comment on above: Performed By: #### F T3, TSH, BNP, T4 #### [facility] [address] [address] [address] Rich Pham Creatinine [Mass/Vol] 0.94 mg/dL Normal 0.55-1.02 [facility] Comment on above: Performed By: #### F T3, TSH, BNP, T4 #### [facility] [address] [place] [address] Dr. Rich Pham EGFR-AF POLISH >60 Normal >=60 [facility] Comment on above: Performed By: #### F T3, TSH, BNP, T4 #### [facility] [address] [place] [address] Dr. Rich Pham EGFR-NON AF POLISH 58 mL/min/1.73m2 Critically low >=60 [facility] Comment on above: Performed By: #### F T3, TSH, BNP, T4 #### [facility] [address] [place] [address] Dr. Rich Pham Globulin (S) [Mass/Vol] 3.9 g/dL Normal [facility] Comment on above: Performed By: #### F T3, TSH, BNP, T4 #### [facility] [address] [place] [address] Dr. Rich Pham Glucose [Mass/Vol] 94 mg/dL Normal 74-106 [facility] Comment on above: Performed By: #### F T3, TSH, BNP, T4 #### [facility] [address] [place] [address] Dr. Rich Pham Potassium [Moles/Vol] 4.1 mmol/L Normal 3.5-5.1 [facility] Comment on above: Performed By: #### F T3, TSH, BNP, T4 #### [facility] [address] [place] [address] Dr. Rich Pham Protein [Mass/Vol] 7.4 g/dL Normal 6.4-8.2 [facility] Comment on above: Performed By: #### F T3, TSH, BNP, T4 #### [facility] [address] [place] [address] Dr. Rich Pham Sodium [Moles/Vol] 140 mmol/L Normal 136-145 [facility] Comment on above: Performed By: #### F T3, TSH, BNP, T4 #### [facility] [address] [place] [address] Dr. Rich Pham Urea nitrogen [Mass/Vol] 15.0 mg/dL Normal 7.0-18.0 [facility] Comment on above: Performed By: #### F T3, TSH, BNP, T4 #### [facility] [address] [place] [address] Dr. Rich Pham Urea nitrogen/Creatinine [Mass ratio] 16.0 mg/mg Normal [facility] Comment on above: Performed By: #### F T3, TSH, BNP, T4 #### [facility] [address] [place] [address] Dr. Rich Pham TSHon 06-19-2022 TSH 6.083 uIU/mL Critically high 0.358-3.740 [facility] Comment on above: Performed By: #### F T3, TSH, BNP, T4 #### [facility] [address] [place] [address] Dr. Rich Pham VITAMIN D 25 OHon 06-19-2022 VIT D 25-OH 41.3 ng/mL Normal [facility] Comment on above: Performed By: #### F T3, TSH, BNP, T4 #### [facility] [address] [place] [address] Dr. Rich Pham VIT D RANGES SEE BELOW Normal [facility] Comment on above: Result Comment: <20 ng/mL Vit D deficient 20 - <30 ng/mL Vit D insufficient 30 - 100 ng/mL Vit D sufficient >100 ng/mL Potential Toxicity Performed By: #### F T3, TSH, BNP, T4 #### [facility] [address] [place] [address] Dr. Rich Pham PROF CHEM 8 (BAS METB)on Anion gap [Moles/Vol] 11.9 mmol/L Normal [facility] Comment on above: Performed By: #### F T3, TSH, BNP, T4 #### [facility] [address] [address] [address] Rich Pham Calcium [Mass/Vol] 9.9 mg/dL Normal 8.5-10.1 [facility] Comment on above: Performed By: #### F T3, TSH, BNP, T4 #### [facility] [address] [address] [address] Rich Pham Chloride [Moles/Vol] 101 mmol/L Normal 98-107 [facility] Comment on above: Performed By: #### F T3, TSH, BNP, T4 #### [facility] [address] [address] [address] Rich Pham CO2 [Moles/Vol] 30.0 mmol/L Normal 21.0-32.0 [facility] Comment on above: Performed By: #### F T3, TSH, BNP, T4 #### [facility] [address] [address] [address] Rich Pham Creatinine [Mass/Vol] 1.10 mg/dL Critically high 0.55-1.02 [facility] Comment on above: Performed By: #### F T3, TSH, BNP, T4 #### [facility] [address] [address] [address] Rich Pham EGFR-AF POLISH 59 mL/min/1.73m2 Critically low >=60 [facility] Comment on above: Performed By: #### F T3, TSH, BNP, T4 #### [facility] [address] [address] [address] Rich Pham EGFR-NON AF POLISH 49 mL/min/1.73m2 Critically low >=60 [facility] Comment on above: Performed By: #### F T3, TSH, BNP, T4 #### [facility] [address] [address] [address] Rich Pham Glucose [Mass/Vol] 115 mg/dL Critically high 74-106 [facility] Comment on above: Performed By: #### F T3, TSH, BNP, T4 #### [facility] [address] [address] [address] Rich Pham Potassium [Moles/Vol] 3.9 mmol/L Normal 3.5-5.1 [facility] Comment on above: Performed By: #### F T3, TSH, BNP, T4 #### [facility] [address] [address] [address] Rich Pham Sodium [Moles/Vol] 139 mmol/L Normal 136-145 [facility] Comment on above: Performed By: #### F T3, TSH, BNP, T4 #### [facility] [address] [address] [address] Rich Pham Urea nitrogen [Mass/Vol] 15.0 mg/dL Normal 7.0-18.0 [facility] Comment on above: Performed By: #### F T3, TSH, BNP, T4 #### [facility] [address] [place] [address] Dr. Rich Pham Urea nitrogen/Creatinine [Mass ratio] 13.6 mg/mg Normal [facility] Comment on above: Performed By: #### F T3, TSH, BNP, T4 #### [facility] [address] [place] [address] Dr. Rich Pham FLUORO FOR SURGICAL PROCEDUR ESon 04-10-2019 FLUORO FOR SURGICAL PROCEDURES FLUORO FOR SURGICAL PROCEDURES : 04/10/2019 6:30 AM CLINICAL HISTORY: ACDF . COMPARISON: None available. Intraoperative fluoroscopy was provided for Dr. López procedure. A total of 16.8 seconds of fluoroscopy was used, with 6 fluoroscopic stills saved. No diagnostic images were obtained. Please see Dr. López surgical notes for completeness. Interpreted by: Juvenal Cagle MD Signed by: Juvenal Cagle MD 04/10/19 Final result Normal [facility] Surgical Specimenon 04-10-20 Surgical Specimen [facility] [address] [place], [place] [id number] FINAL SURGICAL PATHOLOGY REPORT Patient Name: DAREK MEJÍA Accession No: [id number] Age Sex: 1950 Location: [facility] Account No: [id number] Collected: 04/10/2019 Med Rec No: [id number] Received: 04/10/2019 Attend Phys: ESTEBAN LÓPEZ Completed: 04/15/2019 Perform Phys: ESTEBAN LÓPEZ FINAL DIAGNOSIS: DISK TISSUE- DISK CARTILAGE WITH MARKED DEGENERATIVE CHANGES. FRAGMENTS OF BONE, MINUTE AREA SHOWING NORMAL CELLULAR BONE MARROW INCLUDING MEGAKARYOCYTES. SYNOVIAL TISSUE WITH REACTIVE CHANGES. VITAES/DAVID CLINICAL INFORMATION: Disk herniation, radiculopathy. SPECIMEN: Disc GROSS DESCRIPTION: The specimen container is labeled with the patient's name and designated spine . In formalin are multiple irregular rubbery and firm fragments of goss-red tissue measuring in aggregate 3 x 2.5 x 0.4 cm. The majority of tissue is wrapped and submitted in one cassette after decalcification. KARTHIKWA/RAULAN CPT: 34188 X1 [id number] X1 MICHELLE PEREZ M.D. 04/15/2019 Electronically signed out by Page 1 of 1 [facility] Comment on above: Performed By: #### S UR #### [facility] [address] [facility] [id number] Type and Screen Capture 3 sc rn lakesha 04-10-2019 Type and Screen Capture 3 scrn cell PATIENT: MICAELA OSWALD LOC: [facility] NON BILL# : [id number] : 1950 SEX: F ORDERED BY: DAVIN MERCEDES ORDERED : 04/10/2019 06:22 COLLECTED: 04/10/2019 07:21 ORDER : [id number] RECEIVED : 04/10/2019 07:21 --------- TEST NAME RESULT UNITS RANGES ABN FL ST ABORH Capture A POS F Antibody 3 Cell Scrn Captu NEG F -------- Normal [facility] Comment on above: Performed By: #### T S3C #### [facility] [address] [place] [address] CARDIAC STRESS TESTon 2018 CARDIAC STRESS TEST [facility] [address] [facility] [place] [address] CARDIAC STRESS TEST PATIENT NAME: DAREK MEJÍA : 1950 MED REC NO: [id number] ROOM: ACCOUNT NO: [id number] ADMIT DATE: 03/31/2019 PROVIDER: Marli Cox DO CARDIOVASCULAR DIAGNOSTIC DEPARTMENT DATE OF STUDY: 03/31/2019 ORDERING PROVIDER: Olga Parisi MD. PRIMARY CARE PROVIDER: Kayleigh Gay MD. EXAM TYPE: One-day Lexiscan myocardial perfusion stress test. REASON FOR EXAM: Preoperative clearance and EKG abnormalities. PROCEDURE DESCRIPTION: The patient was injected intravenously at rest with technetium-99m tetrofosmin followed by resting SPECT myocardial perfusion imaging and then underwent stress protocol on a treadmill. The patient was then injected intravenously at maximal exercise with technetium-99m tetrofosmin and SPECT myocardial perfusion and gated imaging were repeated. Rest dose: 10.5 mCi Stress dose: 26.3 mCi FINDINGS: The stress and rest images exhibit homogeneous uptake of tracer throughout the left ventricular myocardium. There is no evidence of stress-induced reversible perfusion abnormalities to suggest myocardial ischemia. Gated imaging exhibits normal left ventricular size and normal wall motion and myocardial thickening. The patient did not develop any symptoms other than fatigue during the procedure. EKG analysis did not demonstrate ST-segment changes nor arrhythmias concerning for myocardial ischemia. Ejection fraction: 61%. TID ratio: 0.95. IMPRESSION: 1. No evidence of stress-induced myocardial ischemia. 2. Normal left ventricular systolic function. MARLI COX DO #14:[id number] Doc#: [id number] CC: Normal [facility] Coding Summary.on 01-30-2019 Coding Summary. CODING DATE: 019 [facility] STATUS: Home (Routine DC) PAYOR: Medicare ADMIT DX: REASON FOR VISIT DX: M54.2 Cervicalgia M25.512 Pain in left shoulder FINAL DX: PRINCIPAL: M50.30 Other cervical disc degeneration, unspecified cervical region SECONDARY: M50.20 Other cervical disc displacement, unspecified cervical region M54.12 Radiculopathy, cervical region M48.02 Spinal stenosis, cervical region Z79.899 Other skilled nursing (current) drug therapy PROCEDURES DOCTOR NAME DATE NOTE: The code number assigned matches the documented diagnosis and / or procedure in the patient's chart. However, the narrative phrase printed from the coding software may appear abbreviated, or result in slightly different terminology. Coded By: Linh Devlin CphT Date Saved: 01/30/2019 10:45 am [facility] Coding Summary.on 01-29-2019 Coding Summary. 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 However, the narrative phrase printed from the coding software may appear abbreviated, or result in slightly different terminology. Coded By: Maria Teresa Velasquez Date Saved: 01/29/2019 08:16 am [facility] Main OR Intraoperative Recor don 01-28-2019 Main OR Intraoperative Record IntraOp Document Type FTPM Summary Primary Physician: Cain Rowley MD Finalized Date/Time: 01/28/19 07:58:26 Pt. Name: DAREK MEJÍA/Sex: 1950 Female Med Rec #: [id number] Physician: Cain Rowley MD Financial #: [id number] Pt. Type: P Room/Bed: / Admit/Disch: 01/28/19 06:52:45 - Institution: Case Times FTPM Entry 1 Patient Times In Room 01/28/19 07:53:00 Out Room 01/28/19 08:00:00 Procedure Times Start 01/28/19 07:56:00 Stop 01/28/19 07:58:00 Anesthesia Times Start 01/28/19 07:53:00 Stop 01/28/19 08:00:00 Last Modified By: [place] RN, Nettie Self 01/28/19 07:58:17 Case Attendance FTPM Entry 1 Entry 2 Entry 3 Case Attendee Alysia Gustafson DO, Rik Rowley MD, Cain Guthrie RN, Nettie Self Role Performed Anesthesiologist of Surgeon - Primary [employer] - Primary Record Time In 01/28/19 07:53:00 01/28/19 07:53:00 01/28/19 07:53:00 Time Out 01/28/19 08:00:00 01/28/19 08:00:00 01/28/19 08:00:00 Procedure CERVICAL EPIDURAL CERVICAL EPIDURAL CERVICAL EPIDURAL STEROID INJECTION(.) STEROID INJECTION(.) STEROID INJECTION(.) Comments Last Modified By: [place] RN, Nettie Guthrie RN, Nettie Guthrie RN, Nettie Self 01/28/19 07:58:18 01/28/19 07:58:18 01/28/19 07:58:18 Entry 4 Entry 5 Entry 6 Case Attendee Josh OLIVAS, Tamanna Sun RN, Aaron Donohue Role Performed [employer] - Primary Scrub - Other Wax Room Supervisor Time In 01/28/19 07:53:00 01/28/19 07:53:00 01/28/19 07:53:00 Time Out 01/28/19 08:00:00 01/28/19 08:00:00 01/28/19 08:00:00 Procedure CERVICAL EPIDURAL CERVICAL EPIDURAL CERVICAL EPIDURAL STEROID INJECTION(.) STEROID INJECTION(.) STEROID INJECTION(.) Comments orientee Last Modified By: [place] RN, Nettie Guthrie RN, Nettie Guthrie RN, Nettie Self 01/28/19 07:58:18 01/28/19 07:58:18 01/28/19 07:58:18 Perioperative Protocols FTPM Pre-Care Text: Implements protective measures prior to operative or invasive procedure, confirms identity before the operative or invasive procedure, verifies operative procedure, surgical site, and laterality Entry 1 Procedure(s) CERVICAL EPIDURAL Patient Identity Birthday, ID Band STEROID INJECTION(.) Verified (select at Check, Patient least 2): Participation Consents / H and P Anesthesia Consent, Operative Site Present Verified HandP, Surgery/Procedure Marking Verified Consent Surgical Site Yes Laterality Verified Yes Verified Procedure Verified Yes Correct Patient Yes Position Verified Availability Equipment, Medication, Prep Dry Yes Verified (If X-ray Applicable) PreOp Antibiotic No Time Out Rik Hatfield Jr., DO, Given Participants Nettie Guthrie RN, Amrik WADE, Cain Perla, Aaron Hunt Time Out Complete 01/28/19 07:53:00 Outcomes Met? Yes Last Modified By: Nettie Guthrie RN 01/28/19 07:53:52 Post-Care Text: The patient is free from signs and symptoms of injury caused by extraneous objects Allergy Information FTPM Pre-Care Text: Verifies allergies Entry 1 Allergies Reviewed? Yes Allergies Reviewed Self/Patient With Outcomes Met? Yes Last Modified By: Nettie Guthrie RN 01/28/19 07:09:02 Post-Care Text: The patient received appropriate medication(s) safely administered during the perioperative period Surgical Procedures FTPM Entry 1 Procedure Description Procedure CERVICAL EPIDURAL Modifiers . STEROID INJECTION Surgeon Description C6-7 MAUREEN Primary Procedure Yes Primary Surgeon Amrik WADE, Cain Perla Start 01/28/19 07:56:00 Stop 01/28/19 07:58:00 Anesthesia Type MAC Surgical Service Pain Management Wound Class 1 - Clean Last Modified By: Nettie Guthrie RN 01/28/19 07:58:21 General Case Data FTPM Pre-Care Text: Classifies surgical wound, implements aseptic technique, initiates traffic control Entry 1 Case Information OR Pain Proc Room Case Level Level 2 Wound Class 1 - Clean Specialty Pain Management ASA Class 3 Preop Diagnosis M54.12, M50.30 Postop Same As Preop Yes Postop Diagnosis M54.12, M50.30 Outcomes Met? Yes Last Modified By: Nettie Guthrie RN 01/28/19 07:58:24 Post-Care Text: The patient is free from signs and symptoms of infection Skin Assessment (Pre Procedure) FTPM Pre-Care Text: Implements protective measures to prevent skin/ tissue injury due to thermal or mechanical sources Evaluates for signs and symptoms of physical injury to skin and tissue Entry 1 Skin Integrity Intact, [place], Warm, and Skin Abnormality No Dry Outcomes Met? Yes Last Modified By: Nettie Guthrie RN 01/28/19 07:09:28 Post-Care Text: The patient is free from signs and symptoms of injury caused by extraneous objects Patient Positioning FTPM Pre-Care Text: Identifies physical alterations that require additional precautions for procedure-specific positioning, verifies presence of prosthetics or corrective devices, positions the patient, evaluates the patient for signs and symptoms of injury as a result of positioning Entry 1 Procedure CERVICAL EPIDURAL Body Position Prone STEROID INJECTION(.) Feet Uncrossed? Yes Left Arm Position Resting at Side Right Arm Position Resting at Side Left Leg Position Extended Right Leg Position Extended Positioning Device Pillow Under Head Large, Safety Strap, Pillow Large Under Knees Press Points Checked Yes By Nettie Guthrie RN, Alysia Gustafson DO, Rik Outcomes Met? Yes Last Modified By: Nettie Guthrie RN 01/28/19 07:09:34 Post-Care Text: The patient is free from signs and symptoms of injury related to positioning Transport To OR [facility] Pre-Care Text: Transports according to individual needs. Evaluates for signs and symptoms of skin and tissue injury as a result of transfer or transport Entry 1 Via Cart By Nettie Guthrie RN Safety Precautions Safety Strap, Side Outcomes Met? Yes Rails Up Last Modified By: Nettie Guthrie RN 01/28/19 07:09:39 Post-Care Text: The patient is free from signs and symptoms of injury related to transfer/transport Skin Prep FTPM Pre-Care Text: Performs skin preparations Entry 1 Procedure CERVICAL EPIDURAL Prep Area BLOCK INJECTION SITE STEROID INJECTION(.) Prep Agents Chloraprep/Dry Prior to Draping Hair Removal Methods Not Indicated Outcomes Met? Yes Last Modified By: Nettie Guthrie RN 01/28/19 07:09:50 Post-Care Text: The patient is free from signs and symptoms of infection Departure From OR [facility] Pre-Care Text: Transports according to individual needs. Evaluates for signs and symptoms of skin and tissue injury as a result of transfer or transport. Entry 1 Via Cart Safety Precautions Safety Strap, Side Rails Up PostOp Destination PACU Transported By Nettie Guthrie RN Patient Status Stable Report Given Funmi Grimm RN To/Hand Off Communication Skin. Condition Dry, Intact Airway Maintenance Oxygen in Use? No Outcomes Met? Yes Last Modified By: Nettie Guthrie RN 01/28/19 07:10:00 Post-Care Text: The patient is free from signs and symptoms of injury related to transfer/transport Dressing/Packing FTPM Pre-Care Text: Administers care to wound sites Entry 1 Type Dressing Site and Details OPSITE AND 2X2 TO INJECTION SITE Outcomes Met? Yes Last Modified By: Nettie Guthrie RN 01/28/19 07:10:07 Post-Care Text: The patient is free from signs and symptoms of infection Medication Administration FTPM Pre-Care Text: Verifies allergies, administers prescribed medications and solutions, administers prescribed antibiotic therapy and immunizing agents as ordered, evaluates response to medications Administers prescribed medications and solutions Entry 1 Route of Admin Block Expiration Date Yes Verified Ordered By aCin Rowley MD Transcribed/To Nettie Guthrie RN Field By Administered By Cain Rowley MD Outcomes Met? Yes Last Modified By: Nettie Guthrie RN 01/28/19 07:10:15 Post-Care Text: The patient received appropriate medication(s) safely administered during the perioperative period X-Rays and Images FTPM Pre-Care Text: Assess history of previous radiation exposure and implements protective measures Entry 1 X-Ray Type C-Arm Contrast Used? Yes Outcomes Met? Yes Last Modified By: Nettie Guthrie RN 01/28/19 07:10:26 Post-Care Text: The patient is free from signs and symptoms of radiation injury Case Comments Finalized By: Nettie Guthrie RN Document Signatures Signed By: Nettie Guthrie RN 01/28/19 07:58 Normal [facility] Main OR Preoperative Recordo n 01-28-2019 Main OR Preoperative Record Holding Area Document Type FT Summary Primary Physician: Cain Rowley MD Finalized Date/Time: 01/28/19 07:17:16 Pt. Name: FRANCESGretelDAREK/Sex: 1950 Female Med Rec #: [id number] Physician: Cain Rowley MD Financial #: [id number] Pt. Type: P Room/Bed: / Admit/Disch: 01/28/19 06:52:45 - Institution: Case Times Holding FTPM Pre-Care Text: Verifies consent for planned procedure, identifies individual values and wishes concerning care, includes family members in perioperative teaching Secures patient's records' belongings, and valuables, maintains patient's dignity and privacy, and maintains patient confidentiality Entry 1 In Holding 01/28/19 07:10:00 Outcomes Met? Yes Last Modified By: Melina Harper RN 01/28/19 07:10:05 Post-Care Text: The patient participates in decisions affecting his or her perioperative plan of care The patient's right to privacy is maintained Surgery Checklist FTPM Entry 1 Patient Birthday, ID Band Procedure History and Physical, Identification: Check, Patient Verification: Surgical Consent, With Participation Patient NPO after Midnight: Yes Date/Time: 01/28/19 07:10:00 Personal Items: Dentures, Jewelry Personal Items Pt. wearing upper Comment: partial, pair of earrings and six rings. Complaints of Pain: Yes Pain Comment: 0/10 neck and left shoulder pain Operative Site Yes Marked By: Dr. Rowley Marking: Location: neck and left side Availability Equipment, X-Ray Verified: Does Patient Smoke Yes If Yes to Smoking. 1 PPD cigarettes Cigars or Cigarettes. How much per day? Patient states Yes Comment - Adult friend-Thelma postop adult Supervision supervision available Case Cancelled in No Holding Area see comments below for reason Last Modified By: Melina Harper RN 01/28/19 07:17:15 Finalized By: Melina Harper RN Document Signatures Signed By: Melina Harper RN 01/28/19 07:12 Melina Harper RN 01/28/19 07:14 Melina Harper RN 01/28/19 07:17 Normal [facility] Operative Reporton 9 Operative Report Patient: DAREK MEJÍA Age: 68 years Sex: Female : 1950 Associated Diagnoses: None Author: Cain Rowley MD Procedure Procedure: Cervical Epidural Steroid Injection with Fluoroscopic Guidance at C6/7 Diagnosis: Cervical Radiculitis Anesthesia: MAC MAC anesthesia is medically necessary for the procedure due to the procedure requiring the patient to remain in a painful position. The patient was identified in the pre-op area. The procedure, including risks benefits and alternatives was discussed with the patient. The patient agreed to proceed. Informed consent was obtained and the site(s) marked. The patient was brought to the procedure room and placed in the prone position with the neck flexed. Time out was taken. The neck was prepped and draped in sterile fashion. Skin and subcutaneous tissues were anesthetized with 6 mL of Lidocaine 2% through a 25G needle. An 18G Touhy needle was then advanced under fluoroscopic guidance to the inferior lamina and then advanced cephalad into the epidural space using loss of resistance technique with a plastic BLANCA syringe. Isovue 3mL was injected under live fluoroscopy which demonstrated appropriate epidural spread without vascular uptake. After confirmation of negative aspiration, 5mL of 0.5% PF lidocaine and 60mg of methylprednisolone were injected. The needle was removed and a bandage applied. The patient was brought to the recovery area in stable condition and then monitored for an appropriate period of time. The patient was discharged home in good condition with post-procedure instructions. No apparent complications. Epidural injection procedure Physical Exam: vital signs Vital Signs 01/28/2019 07:18 EDT Temperature Oral 36.6 DegC Heart Rate Monitored 63 bpm Respiratory Rate 12 br/min LOW Systolic Blood Pressure 143 mmHg HI Diastolic Blood Pressure 73 mmHg Mean Arterial Pressure, Monitered 96 mmHg SpO2 94 % . Normal [facility] Comment on above: Result Comment: Elec tronically Signed By: Amrik WADE, Cain Perla\.br\Date and Time Signed: 01/28/19 07:58 EDT Consultation Noteon 01-25-20 19 Consultation Note Result type: Progres s Note-Physician Result date: January 17, 2019 10:35 EDT Result status: Auth (Verified) Result title: Pain Managment Follow up Performed by: Marah Ferrell PA-C on January 17, 2019 10:38 EDT Verified by: Marah Ferrell PA-C on January 17, 2019 10:38 EDT Encounter info: [id number], [facility], Pain Management, 01/17/2019 - 01/17/2019 * Final Report * MOVED TO CORRECT FOLDER Pain Managment Follow up Patient: DAREK MEJÍA Age: 68 years Sex: Female : 1950 Associated Diagnoses: None Author: Marah Ferrell PA-C Subjective Chief complaint 01/17/2019 10:07 EDT left neck/shoulder pain . Patient is a 68-year-old female with a past medical history significant for cervical degenerative disc disease, cervical disc bulge, cervical neuritis, and cervical stenosis. She presents today for follow-up after undergoing C6 to 7 epidural steroid injection done on 12/30/18 that provided 50% relief for 2-3 days. Her pain then returned. It is in the neck and goes down the left arm to the elbow. She rates an 8/10. She was seen by Dr. Stas Olvera who discussed with her surgery versus epidural. She elected to proceed with the epidural. She states that the surgery scares her. She is on gabapentin. Tolerating well. No noticeable side effects. She is requesting narcotics. She states she needs something for pain. She rates her discomfort an 8/10. It affects her ability to lift her arm above her head, use her arm, and do her normal daily activities. Health Status Allergies: Allergic Reactions (Selected) Severity Not Documented Tetanus toxoid- Edema., Allergies (1) Active Reaction tetanus toxoid edema Current medications: (Selected) Prescriptions Prescribed gabapentin 300 mg Cap: See Instructions, increase dose as directed to 600 mg po tid., # 180 tab(s), Refills(s) 0, Pharmacy: [facility] Documented Medications Documented NIFEdipine 30 mg ER Tab: 30 mg = 1 tab(s), Oral, Daily Pantoprazole [address] Tab: 40 mg = 1 tab(s), Oral, Daily, Refills(s) 0 aspirin 81 mg oral tablet: 81 mg = 1 tab(s), Oral, Daily atorvastatin 40 mg Tab: 40 mg = 1 tab(s), Oral, Daily gabapentin: 600 mg, Oral, TID, Dr. Rowley rx's, Refills(s) 0 hydrochlorothiazide 25 mg Tab: 25 mg = 1 tab(s), Oral, Daily, Refills(s) 0 nabumetone 500 mg Tab: 1,000 mg = 2 tab(s), Oral, BID potassium chloride 10 mEq ER Tab: 10 mEq = 1 tab(s), Oral, BID, Refills(s) 0 sertraline 100 mg Tab: 100 mg = 1 tab(s), Oral, Daily, Refills(s) 0 tiZANidine 4 mg Tab: 4 mg = 1 tab(s), Oral, TID, Refills(s) 0, Home Medications (11) Active aspirin 81 mg oral tablet 81 mg = 1 tab(s), Oral, Daily atorvastatin 40 mg Tab 40 mg = 1 tab(s), Oral, Daily gabapentin 600 mg, Oral, TID gabapentin 300 mg Cap See Instructions hydrochlorothiazide 25 mg Tab 25 mg = 1 tab(s), Oral, Daily nabumetone 500 mg Tab 1,000 mg = 2 tab(s), Oral, BID NIFEdipine 30 mg ER Tab 30 mg = 1 tab(s), Oral, Daily Pantoprazole [address] Tab 40 mg = 1 tab(s), Oral, Daily potassium chloride 10 mEq ER Tab 10 mEq = 1 tab(s), Oral, BID sertraline 100 mg Tab 100 mg = 1 tab(s), Oral, Daily tiZANidine 4 mg Tab 4 mg = 1 tab(s), Oral, TID Problem list: All Problems Smoker / SNOMED CT 261546027 / Confirmed Added secondary to documentation in Social History. Objective Vital Signs 01/17/2019 10:07 EDT Peripheral Pulse Rate 65 bpm Respiratory Rate 14 br/min Systolic Blood Pressure 135 mmHg Diastolic Blood Pressure 78 mmHg Mean Arterial Pressure, Cuff 97 mmHg Measurements from flowsheet : Measurements 01/17/2019 10:07 EDT Height/Length Measured 170.18 cm BSA Measured 1.73 m2 Body Mass Index Measured 21.93 kg/m2 Weight Measured 63.50 kg General: Alert and oriented, No acute distress. Eye: Normal conjunctiva. HENT: Normocephalic, Normal hearing. Cardiovascular: No edema. Musculoskeletal Normal range of motion. Normal strength. Integumentary: Warm, Dry, [place]. Injection site well-healed Neurologic: Alert, Oriented. Psychiatric: Cooperative, Appropriate mood & affect. Impression and Plan Patient is a 68-year-old female with a past medical history significant for cervical degenerative disc disease, cervical disc bulge, cervical neuritis, and cervical stenosis. She had a C6 to 7 epidural steroid injection that provided 2-3 days of 50% relief. I discussed with patient different options including but not limited to meeting with Dr. Olvera to discuss surgery once again versus trialing a repeat injection for cumulative effect. After long discussion and discussing different options, she would like to proceed with repeat C6/7 epidural steroid injection. She is going to consider the surgery. She is going to continue on the gabapentin and I discussed with her that I would not recommend narcotics at this time. We will refill the gabapentin for her. OARRS is appropriate. She will follow-up 2 weeks after the injection for reevaluation. Call the clinic with any interval questions or concerns. Signature Line Electronically Signed By: Marah Ferrell PA-C Date and Time Signed: 01/17/19 10:38 EDT Electronically Co-Signed By: Cain Rowley MD [facility] Comment on above: Result Comment: Elec tronically Signed By: Marah Ferrell PA-C\.br\Date and Time Signed: 01/24/19 15:55 EDT Progress Note-Physicianon Progress Note-Physician Patient: DAREK MEJÍA Age: 68 years Sex: Female : 1950 Associated Diagnoses: None Author: Marah Ferrell PA-C Subjective Chief complaint 01/17/2019 10:07 EDT left neck/shoulder pain . Patient is a 68-year-old female with a past medical history significant for cervical degenerative disc disease, cervical disc bulge, cervical neuritis, and cervical stenosis. She presents today for follow-up after undergoing C6 to 7 epidural steroid injection done on 12/30/18 that provided 50% relief for 2-3 days. Her pain then returned. It is in the neck and goes down the left arm to the elbow. She rates an 8/10. She was seen by Dr. Stas Olvera who discussed with her surgery versus epidural. She elected to proceed with the epidural. She states that the surgery scares her. She is on gabapentin. Tolerating well. No noticeable side effects. She is requesting narcotics. She states she needs something for pain. She rates her discomfort an 8/10. It affects her ability to lift her arm above her head, use her arm, and do her normal daily activities. Health Status Allergies: Allergic Reactions (Selected) Severity Not Documented Tetanus toxoid- Edema., Allergies (1) Active Reaction tetanus toxoid edema Current medications: (Selected) Prescriptions Prescribed gabapentin 300 mg Cap: See Instructions, increase dose as directed to 600 mg po tid., # 180 tab(s), Refills(s) 0, Pharmacy: [facility] Documented Medications Documented NIFEdipine 30 mg ER Tab: 30 mg = 1 tab(s), Oral, Daily Pantoprazole [address] Tab: 40 mg = 1 tab(s), Oral, Daily, Refills(s) 0 aspirin 81 mg oral tablet: 81 mg = 1 tab(s), Oral, Daily atorvastatin 40 mg Tab: 40 mg = 1 tab(s), Oral, Daily gabapentin: 600 mg, Oral, TID, Dr. Rowley rx's, Refills(s) 0 hydrochlorothiazide 25 mg Tab: 25 mg = 1 tab(s), Oral, Daily, Refills(s) 0 nabumetone 500 mg Tab: 1,000 mg = 2 tab(s), Oral, BID potassium chloride 10 mEq ER Tab: 10 mEq = 1 tab(s), Oral, BID, Refills(s) 0 sertraline 100 mg Tab: 100 mg = 1 tab(s), Oral, Daily, Refills(s) 0 tiZANidine 4 mg Tab: 4 mg = 1 tab(s), Oral, TID, Refills(s) 0, Home Medications (11) Active aspirin 81 mg oral tablet 81 mg = 1 tab(s), Oral, Daily atorvastatin 40 mg Tab 40 mg = 1 tab(s), Oral, Daily gabapentin 600 mg, Oral, TID gabapentin 300 mg Cap See Instructions hydrochlorothiazide 25 mg Tab 25 mg = 1 tab(s), Oral, Daily nabumetone 500 mg Tab 1,000 mg = 2 tab(s), Oral, BID NIFEdipine 30 mg ER Tab 30 mg = 1 tab(s), Oral, Daily Pantoprazole [address] Tab 40 mg = 1 tab(s), Oral, Daily potassium chloride 10 mEq ER Tab 10 mEq = 1 tab(s), Oral, BID sertraline 100 mg Tab 100 mg = 1 tab(s), Oral, Daily tiZANidine 4 mg Tab 4 mg = 1 tab(s), Oral, TID Problem list: All Problems Smoker / SNOMED CT 651199361 / Confirmed Added secondary to documentation in Social History. Objective Vital Signs 01/17/2019 10:07 EDT Peripheral Pulse Rate 65 bpm Respiratory Rate 14 br/min Systolic Blood Pressure 135 mmHg Diastolic Blood Pressure 78 mmHg Mean Arterial Pressure, Cuff 97 mmHg Measurements from flowsheet : Measurements 01/17/2019 10:07 EDT Height/Length Measured 170.18 cm BSA Measured 1.73 m2 Body Mass Index Measured 21.93 kg/m2 Weight Measured 63.50 kg General: Alert and oriented, No acute distress. Eye: Normal conjunctiva. HENT: Normocephalic, Normal hearing. Cardiovascular: No edema. Musculoskeletal Normal range of motion. Normal strength. Integumentary: Warm, Dry, [place]. Injection site well-healed Neurologic: Alert, Oriented. Psychiatric: Cooperative, Appropriate mood & affect. Impression and Plan Patient is a 68-year-old female with a past medical history significant for cervical degenerative disc disease, cervical disc bulge, cervical neuritis, and cervical stenosis. She had a C6 to 7 epidural steroid injection that provided 2-3 days of 50% relief. I discussed with patient different options including but not limited to meeting with Dr. Olvera to discuss surgery once again versus trialing a repeat injection for cumulative effect. After long discussion and discussing different options, she would like to proceed with repeat C6/7 epidural steroid injection. She is going to consider the surgery. She is going to continue on the gabapentin and I discussed with her that I would not recommend narcotics at this time. We will refill the gabapentin for her. OARRS is appropriate. She will follow-up 2 weeks after the injection for reevaluation. Call the clinic with any interval questions or concerns. Normal [facility] Comment on above: Result Comment: ERRO R - WRONG FOLDER Electronically Signed By: Marah Ferrell PA-C\.br\Date and Time Signed: 01/17/19 10:38 EDT\.br\Electronically Co-Signed By: Cain Rowley MD Coding Summary.on 12-31-2018 Coding Summary. CODING DATE: 019 FINAL [facility] STATUS: Home (Routine DC) PAYOR: Medicare APC DESCRIPTION 5442 Level 2 Nerve Injections ADMIT DX: REASON FOR VISIT DX: M54.12 Radiculopathy, cervical region FINAL DX: PRINCIPAL: M54.12 Radiculopathy, cervical region SECONDARY: PYMT PROC APC STAT DESCRIPTION DOCTOR NAME DATE NOTE: The code number assigned matches the documented diagnosis and / or procedure in the patient's chart. However, the narrative phrase printed from the coding software may appear abbreviated, or result in slightly different terminology. Coded By: Maria Teresa Velasquez Date Saved: 12/31/2018 02:30 pm Normal [facility] Progress Note-Physicianon Progress Note-Physician Patient: DAREK MEJÍA Age: 68 years Sex: Female : 1950 Associated Diagnoses: None Author: Stevie Linares Jr, DO Preoperative Information Anesthesia history: Patient history: denies difficulty with anesthesia. Family history: Denies any history of anesthesia complications.. Re-evaluation prior to induction: Initial evaluation reviewed: No significant change. Review of Systems Respiratory: NO RECENT CHANGES IN RESPIRATORY STATUS. Cardiovascular: STABLE, NO CHANGES IN CARDIAC STATUS. Neurologic: Per pain clinic assessment. Health Status Allergies: Allergic Reactions (Selected) Severity Not Documented Tetanus toxoid- Edema. Current medications: (Selected) Prescriptions Prescribed Medrol Dosepack 4 mg Tab: = 1 packet(s), Oral, As Directed, as directed on package labeling, X 6 day(s), # 21 tab(s), Refills(s) 0, Pharmacy: [facility] gabapentin 300 mg Cap: See Instructions, increase dose as directed to 600 mg po tid., # 180 tab(s), Refills(s) 0, Pharmacy: [facility] #[facility] Documented Medications Documented NIFEdipine 30 mg ER Tab: 30 mg = 1 tab(s), Oral, Daily Pantoprazole [address] Tab: 40 mg = 1 tab(s), Oral, Daily, Refills(s) 0 aspirin 81 mg oral tablet: 81 mg = 1 tab(s), Oral, Daily atorvastatin 40 mg Tab: 40 mg = 1 tab(s), Oral, Daily hydrochlorothiazide 25 mg Tab: 25 mg = 1 tab(s), Oral, Daily, Refills(s) 0 nabumetone 500 mg Tab: 1,000 mg = 2 tab(s), Oral, BID potassium chloride 10 mEq ER Tab: 10 mEq = 1 tab(s), Oral, BID, Refills(s) 0 sertraline 100 mg Tab: 100 mg = 1 tab(s), Oral, Daily, Refills(s) 0 tiZANidine 4 mg Tab: 4 mg = 1 tab(s), Oral, TID, Refills(s) 0 Problem list: All Problems Smoker / SNOMED CT [id number] / Confirmed Added secondary to documentation in Social History. Histories Past Medical History: No active or resolved past medical history items have been selected or recorded., SMOKES TOBACCO Family History: No family history items have been selected or recorded. Procedure history: Mastectomy (2154394226). Hysterectomy (218618953). Cholecystectomy (64343203). 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 Social History Social & Psychosocial Habits Alcohol 12/17/2018 Risk Assessment: Low Risk 12/17/2018 Use: Current Type: Beer Frequency: 1-2 times per month Substance Abuse 12/17/2018 Risk Assessment: Denies Substance Abuse Tobacco 12/17/2018 Risk Assessment: Denies Tobacco Use 12/17/2018 Tobacco Use: 10 or more cigarettes (1/ Type: Cigarettes Started at age: 14.0 Years . Physical Examination Pain assessment: PER PAIN CLINIC ASSESSMENT. General: Alert and oriented. Airway: Neck: Supple. HENT: Normocephalic. Respiratory: ADEQUATE AIR EXCHANGE. Cardiovascular: Adequate circulation and perfusion.. Gastrointestinal: Benign, nontender.. Integumentary: Warm, [place]. Neurologic: PER PAIN CLINIC ASSESSMENT. Plan [place] [employer] (ASA) physical status classification: Class III. Anesthetic Preoperative Plan Anesthesia: Monitored anesthesia care. Anesthetic plan, risks, benefits, and alternatives discussed with the patient and/or family. Patient verbalized understanding. Informed consent was given. Communication: face to face with Pt educated on the importance of smoking cessation. Normal [facility] Comment on above: Result Comment: Elec tronically Signed By: Stevie Linares Jr, DO\.fran\Date and Time Signed: 12/31/18 15:15 EDT Main OR Intraoperative Recor don 12-30-2018 Main OR Intraoperative Record IntraOp Document Type FTPM Summary Primary Physician: Cain Rowley MD Finalized Date/Time: 12/30/18 08:22:53 Pt. Name: DAREK MEJÍA/Sex: 1950 Female Med Rec #: [id number] Physician: Amrik WADE, Cain Perla Financial #: [id number] Pt. Type: P Room/Bed: / Admit/Disch: 12/30/18 07:22:06 - Institution: Case Times FTPM Entry 1 Patient Times In Room 12/30/18 08:15:00 Out Room 12/30/18 08:24:00 Procedure Times Start 12/30/18 08:18:00 Stop 12/30/18 08:22:00 Anesthesia Times Start 12/30/18 08:15:00 Stop 12/30/18 08:24:00 Last Modified By: [place] RN, Nettie Self 12/30/18 08:22:45 Case Attendance FTPM Entry 1 Entry 2 Entry 3 Case Attendee Vijay Andre DO, Stevie Rowley MD, Cain Guthrie RN, Nettie Self Role Performed Anesthesiologist of Surgeon - Primary [employer] - Primary Record Time In 12/30/18 08:15:00 12/30/18 08:15:00 12/30/18 08:15:00 Time Out 12/30/18 08:24:00 12/30/18 08:24:00 12/30/18 08:24:00 Procedure CERVICAL EPIDURAL CERVICAL EPIDURAL CERVICAL EPIDURAL STEROID INJECTION(.) STEROID INJECTION(.) STEROID INJECTION(.) Comments Last Modified By: [place] RN, Nettie Guthrie RN, Nettie Guthrie RN, Nettie Self 12/30/18 08:22:46 12/30/18 08:22:46 12/30/18 08:22:46 Entry 4 Entry 5 Entry 6 Case Attendee Josh OLIVAS, Tamanna Sun RN, Delmy Bermeo Role Performed Scrub - Primary Scrub - Other Wax Room Supervisor Time In 12/30/18 08:15:00 12/30/18 08:15:00 12/30/18 08:15:00 Time Out 12/30/18 08:24:00 12/30/18 08:24:00 12/30/18 08:24:00 Procedure CERVICAL EPIDURAL CERVICAL EPIDURAL CERVICAL EPIDURAL STEROID INJECTION(.) STEROID INJECTION(.) STEROID INJECTION(.) Comments orientee Last Modified By: [place] RN, Nettie Guthrie RN, Nettie Guthrie RN, Nettie Self 04/29/19 08:22:46 12/30/18 08:22:46 12/30/18 08:22:46 Perioperative Protocols FTPM Pre-Care Text: Implements protective measures prior to operative or invasive procedure, confirms identity before the operative or invasive procedure, verifies operative procedure, surgical site, and laterality Entry 1 Procedure(s) CERVICAL EPIDURAL Patient Identity Birthday, ID Band STEROID INJECTION(.) Verified (select at Check, Patient least 2): Participation Consents / H and P Anesthesia Consent, Operative Site Present Verified HandP, Surgery/Procedure Marking Verified Consent Surgical Site Yes Laterality Verified Yes Verified Procedure Verified Yes Correct Patient Yes Position Verified Availability Equipment, Medication, Prep Dry Yes Verified (If X-ray Applicable) PreOp Antibiotic No Time Out Vijay Andre DO, Stevie Napier, Given Participants Nettie Guthrie RN, Josh OLIVAS, Amrik Nolen MD, Cain Perla Time Out Complete 12/30/18 08:17:00 Outcomes Met? Yes Last Modified By: Nettie Guthrie RN 12/30/18 08:17:40 Post-Care Text: The patient is free from signs and symptoms of injury caused by extraneous objects Allergy Information FTPM Pre-Care Text: Verifies allergies Entry 1 Allergies Reviewed? Yes Allergies Reviewed Self/Patient With Outcomes Met? Yes Last Modified By: Nettie Guthrie RN 12/30/18 07:34:59 Post-Care Text: The patient received appropriate medication(s) safely administered during the perioperative period Surgical Procedures FTPM Entry 1 Procedure Description Procedure CERVICAL EPIDURAL Modifiers . STEROID INJECTION Surgeon Description C6/7 ELENA Primary Procedure Yes Primary Surgeon Amrik WADE, Cain Perla Start 12/30/18 08:18:00 Stop 12/30/18 08:22:00 Anesthesia Type MAC Surgical Service Pain Management Wound Class 1 - Clean Last Modified By: Nettie Guthrie RN 12/30/18 08:22:49 General Case Data FTPM Pre-Care Text: Classifies surgical wound, implements aseptic technique, initiates traffic control Entry 1 Case Information OR Pain Proc Room Case Level Level 2 Wound Class 1 - Clean Specialty Pain Management Preop Diagnosis M54.12 Postop Same As Preop Yes Postop Diagnosis M54.12 Outcomes Met? Yes Last Modified By: Nettie Guthrie RN 12/30/18 07:35:14 Post-Care Text: The patient is free from signs and symptoms of infection Skin Assessment (Pre Procedure) FTPM Pre-Care Text: Implements protective measures to prevent skin/ tissue injury due to thermal or mechanical sources Evaluates for signs and symptoms of physical injury to skin and tissue Entry 1 Skin Integrity Intact, [place], Warm, and Skin Abnormality No Dry Outcomes Met? Yes Last Modified By: Nettie Guthrie RN 12/30/18 07:35:24 Post-Care Text: The patient is free from signs and symptoms of injury caused by extraneous objects Patient Positioning FTPM Pre-Care Text: Identifies physical alterations that require additional precautions for procedure-specific positioning, verifies presence of prosthetics or corrective devices, positions the patient, evaluates the patient for signs and symptoms of injury as a result of positioning Entry 1 Procedure CERVICAL EPIDURAL Body Position Prone STEROID INJECTION(.) Feet Uncrossed? Yes Left Arm Position Resting at Side Right Arm Position Resting at Side Left Leg Position Extended Right Leg Position Extended Positioning Device Pillow Under Head Large, Safety Strap, Pillow Large Under Knees Press Points Checked Yes By Nettie Guthrie RN, Marsh Jr DO, James A Outcomes Met? Yes Last Modified By: Nettie Guthrie RN 12/30/18 07:35:32 Post-Care Text: The patient is free from signs and symptoms of injury related to positioning Transport To OR FT Pre-Care Text: Transports according to individual needs. Evaluates for signs and symptoms of skin and tissue injury as a result of transfer or transport Entry 1 Via Cart By Nettie Guthrie RN Safety Precautions Safety Strap, Side Outcomes Met? Yes Rails Up Last Modified By: Nettie Guthrie RN 12/30/18 07:35:36 Post-Care Text: The patient is free from signs and symptoms of injury related to transfer/transport Skin Prep FTPM Pre-Care Text: Performs skin preparations Entry 1 Procedure CERVICAL EPIDURAL Prep Area BLOCK INJECTION SITE STEROID INJECTION(.) Prep Agents Chloraprep/Dry Prior to Draping Hair Removal Methods Not Indicated By Tamanna Moreno RN Outcomes Met? Yes Last Modified By: Nettie Guthrie RN 12/30/18 07:35:43 Post-Care Text: The patient is free from signs and symptoms of infection Departure From OR FT Pre-Care Text: Transports according to individual needs. Evaluates for signs and symptoms of skin and tissue injury as a result of transfer or transport. Entry 1 Via Cart Safety Precautions Safety Strap, Side Rails Up PostOp Destination PACU Transported By Nettie Guthrie RN Patient Status Stable Report Given Funmi Grimm RN To/Hand Off Communication Skin. Condition Dry, Intact Airway Maintenance Oxygen in Use? No Outcomes Met? Yes Last Modified By: Nettie Guthrie RN 12/30/18 07:35:53 Post-Care Text: The patient is free from signs and symptoms of injury related to transfer/transport Dressing/Packing FTPM Pre-Care Text: Administers care to wound sites Entry 1 Type Dressing Site and Details OPSITE AND 2X2 TO INJECTION SITE Outcomes Met? Yes Last Modified By: Nettie Guthrie RN 12/30/18 07:35:58 Post-Care Text: The patient is free from signs and symptoms of infection Medication Administration FTPM Pre-Care Text: Verifies allergies, administers prescribed medications and solutions, administers prescribed antibiotic therapy and immunizing agents as ordered, evaluates response to medications Administers prescribed medications and solutions Entry 1 Route of Admin Block Expiration Date Yes Verified Ordered By Cain Rowley MD Transcribed/To Nettie Guthrie RN Field By Administered By Cain Rowley MD Outcomes Met? Yes Last Modified By: Nettie Guthrie RN 12/30/18 07:36:05 Post-Care Text: The patient received appropriate medication(s) safely administered during the perioperative period X-Rays and Images FTPM Pre-Care Text: Assess history of previous radiation exposure and implements protective measures Entry 1 X-Ray Type C-Arm Contrast Used? Yes Outcomes Met? Yes Last Modified By: Nettie Guthrie RN 12/30/18 07:36:13 Post-Care Text: The patient is free from signs and symptoms of radiation injury Case Comments Finalized By: Nettie Guthrie RN Document Signatures Signed By: Nettie Guthrie RN 12/30/18 08:22 Normal [facility] Main OR Preoperative Recordo n 12-30-2018 Main OR Preoperative Record Holding Area Document Type FT Summary Primary Physician: Cain Rowley MD Finalized Date/Time: 12/30/18 07:39:27 Pt. Name: MICAELADAREKO.B./Sex: 1950 Female Med Rec #: [id number] Physician: Cain Rowley MD Financial #: [id number] Pt. Type: P Room/Bed: / Admit/Disch: 12/30/18 07:22:06 - Institution: Case Times Holding FTPM Pre-Care Text: Verifies consent for planned procedure, identifies individual values and wishes concerning care, includes family members in perioperative teaching Secures patient's records' belongings, and valuables, maintains patient's dignity and privacy, and maintains patient confidentiality Entry 1 In Holding 12/30/18 07:36:00 Outcomes Met? Yes Last Modified By: Melina Harper RN 12/30/18 07:36:51 Post-Care Text: The patient participates in decisions affecting his or her perioperative plan of care The patient's right to privacy is maintained Surgery Checklist FTPM Entry 1 Patient Birthday, ID Band Procedure History and Physical, Identification: Check, Patient Verification: Surgical Consent, With Participation Patient NPO after Midnight: Yes Date/Time: 12/30/18 07:37:00 Personal Items: Dentures, Jewelry Personal Items Pt. wering upper Comment: partial, five rings and 2 pair of earrings. Complaints of Pain: Yes Pain Comment: 09/12 left shoulder pain Operative Site Yes Marked By: Dr. Rowley Marking: Location: C6-C7 Availability Equipment, X-Ray Verified: Does Patient Smoke Yes If Yes to Smoking. 1 PPD cigarettes Cigars or Cigarettes. How much per day? Patient states Yes Comment - Adult Boyfriend-Ag postop adult Supervision supervision available Case Cancelled in No Holding Area see comments below for reason Last Modified By: Melina Harper RN 12/30/18 07:39:24 Finalized By: Melina Harper RN Document Signatures Signed By: Melina Harper RN 12/30/18 07:39 Normal [facility] Operative Reporton 9 Operative Report Patient: DAREK MEJÍA Age: 68 years Sex: Female : 1950 Associated Diagnoses: None Author: Cain Rowley MD Procedure Procedure: Cervical Epidural Steroid Injection with Fluoroscopic Guidance at C6/7 Diagnosis: Cervical Radiculitis Anesthesia: MAC MAC anesthesia is medically necessary for the procedure due to the procedure requiring the patient to remain in a painful position. The patient was identified in the pre-op area. The procedure, including risks benefits and alternatives was discussed with the patient. The patient agreed to proceed. Informed consent was obtained and the site(s) marked. The patient was brought to the procedure room and placed in the prone position with the neck flexed. Time out was taken. The neck was prepped and draped in sterile fashion. Skin and subcutaneous tissues were anesthetized with 6 mL of Lidocaine 2% through a 25G needle. An 18G Touhy needle was then advanced under fluoroscopic guidance to the inferior lamina and then advanced cephalad into the epidural space using loss of resistance technique with a plastic BLANCA syringe. Isovue 3mL was injected under live fluoroscopy which demonstrated appropriate epidural spread without vascular uptake. After confirmation of negative aspiration, 5mL of 0.5% PF lidocaine and 60mg of methylprednisolone were injected. The needle was removed and a bandage applied. The patient was brought to the recovery area in stable condition and then monitored for an appropriate period of time. The patient was discharged home in good condition with post-procedure instructions. No apparent complications. Epidural injection procedure Physical Exam: vital signs Vital Signs 12/30/2018 07:40 EDT Temperature Oral 36.7 DegC Heart Rate Monitored 56 bpm LOW Respiratory Rate 16 br/min Systolic Blood Pressure 169 mmHg HI Diastolic Blood Pressure 84 mmHg Blood Pressure Location Left arm Mean Arterial Pressure, Monitered 112 mmHg SpO2 98 % . Normal [facility] Comment on above: Result Comment: Elec tronically Signed By: Cain Rowley MD\.br\Date and Time Signed: 12/30/18 08:23 EDT Message - General Officeon 0 12-25-2018 Message - General Office From: James Eaton ([facility] Heavy Mobile Equipment Operator) To: Cain Rowley MD; Sent: 12/19/2018 14:37:15 EDT Subject: Rx Patient called and said that she had been prescribed Gabapentin per her last care plan. She said it makes her sleepy and weak. She asked if she would be able to take something different. From: Marah Ferrell PA-C To: [facility] Nursing Inbox; Sent: 12/20/2018 09:18:44 EDT Subject: RE: Rx DC GPN, we can try lyrica if insurance mitzi cover it. Or just proceed with injection only and see if that helps. Please let me know what she would like to try. From: Jeevan Manager LibraryElysia Fitzgerald ([facility] Nursing Inbox) To: [facility] Nursing Inbox; Sent: 12/20/2018 10:01:06 EDT Subject: pt to call back. called patient, left a message requesting a return telephone. From: JeevanCaroMont HealthManager LibraryElysia Fitzgerald ([facility] Nursing Inbox) To: Marah Ferrell PA-C; Sent: 12/20/2018 13:34:17 EDT Subject: RE: pt to call back. Patient called back and stated that she will d/c the gabapentin and will just wait for injection before trying the lyrica Received a request for prior authorization for the Gabapentin from [facility] From: Elva Moreno RN ([facility] Nursing Inbox) To: [facility] Inbox; Sent: 12/23/2018 08:44:56 EDT Subject: Rx prior auth request Tried to call [facility] and they do not open until after 9 - will call to see if she picked this up (see notes below) and why we got this request. From: Elva Moreno RN ([facility] Nursing Inbox) To: Elva Moreno RN; Sent: 12/23/2018 10:51:16 EDT Subject: FW: Rx prior auth request Contacted [facility] and they confirm the patient filled this on the 17 of December - not sure why we got the request for Prior authoization, but since we will not be continuing this medication we will disregard the request. for CADE. From: Josh OLIVAS, Elva Greenwood ([facility] Nursing Inbox) To: Amrik WADE, Cain Perla; Sent: 12/25/2018 10:34:05 EDT Subject: Intractable pain injection scheduled Sunday12/30/18 patient called in was tearful and snappy. States thta she is scheduled for an injection on Sunday and needs something for her pain . States she is taking the neurontin and its not helping, when asked about the messages below and that she was suppose to stop taking the gabapentin - she states yah the nurse told me that BUT I NEED SOMETHING FOR THE PAIN , she is taking 2 tabs in the morning, 1 in the afternoon and then 2 at bedtime. Although when questioned she states she hasn't taken any yet today. She now denies any side effects from the gabapentin after this nurse had to remind her of her previous complaints about this medication. But states that she isn't noticing any difference after taking it regarding her pain. When asked about the possiblity of Lyrica she states MY INSURANCE ISN'T GOING TO PAY FOR THAT . She states that her neck was very stiff when she got up this morning. 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 When asked about the Tianidine on her med list - she states she takes it but it doesn't help, although she hasn't taken it today. When asked she states she has not taken Tylenol or Aleve or Advil for the pain. (man can be heard in the backround stating something about treating her pain . She states so this aint from nerve pain then . Educated patient on the pain cycle and various causes and OTC pain treatment options. When asked what exactly she is seeking for her pain she states I don't KNOW just SOMETHING for this pain . Patient sounds tearful and sniffles throughout call, although she also seems aggitated with this nurse regarding questions. Apologies offered and educated on why we want to know what she has tried and what has and hasn't worked so that we can better address her concerns. Advised her I would forward her concerns to the physician and someone would be in touch with her once this is reviewed. From: Marah Ferrell PA-C To: [facility] Nursing Inbox; Sent: 12/25/2018 11:05:18 EDT Subject: RE: Intractable pain injection scheduled Sunday12/30/18 I can send a medrol dose pack in if she would like to use until the injection From: Elva Moreno RN ([facility] Nursing Inbox) To: [facility] Inbox; Sent: 12/25/2018 11:11:14 EDT Subject: FW: Intractable pain injection scheduled Sunday12/30/18 Due Date/Time: 12/25/2018 13:00:00 EDT Left voice mail for patient to call the office From: Elva Moreno RN ([facility] Nursing Inbox) To: Marah Ferrell PA-C; Sent: 12/25/2018 11:14:17 EDT Subject: Dose Pack On hold pending signature Order:methylPREDNISolon e (Medrol Dosepack 4 mg Tab) 1 packet(s) Oral As Directed as directed on package labeling Qty: 21 tab(s) Duration: 6 day(s) Refills: 0 Substitutions Allowed Route To Pharmacy - [facility] Patient returned call and states she will give it a try . Approved Order:methylPREDNISolon e (Medrol Dosepack 4 mg Tab) 1 packet(s) Oral As Directed as directed on package labeling Qty: 21 tab(s) Duration: 6 day(s) Refills: 0 Substitutions Allowed Route To Pharmacy - [facility] #[facility] Signed by Marah Ferrell PA-C 12/25/18 11:27:00 From: Marah Ferrell PA-C To: [facility] Nursing Inbox; Sent: 12/25/2018 11:27:52 EDT Subject: RE: Dose Pack sent From: Jeevan Manager Library.Elysia ([facility] Nursing Inbox) To: [facility] Nursing Inbox; Sent: 12/25/2018 12:57:16 EDT Subject: RE: Dose Pack attempted to call patient, no answer and no voicemail From: Tisha MEEHANTriny ([facility] Nursing Inbox) To: [facility] Nursing Inbox; Sent: 12/25/2018 13:21:44 EDT Subject: RE: Dose Pack patient returned call I informed her prescription sent to pharmacy Normal [facility] Consultation Noteon 12-25-19 Consultation Note HOSPITAL REGULATIONS : ALL Positive Important Negative Findings Shall Be Recorded. Date of 12/17/2018 Consultation: Attending Stas Olvera MD Physician: Consulting Cain Rowley M.D. Physician: CHIEF COMPLAINT: Left-sided neck and arm pain. HISTORY: This is a 68 year old female with several month history of severe left-sided neck pain that radiates down the left upper extremity into the shoulder. Associated numbness and tingling into the left thumb. She rates her pain as a 9/10 on the visual analog scale. No inciting injury or trauma. 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 She has been on Nabumetone and Aspirin and tried physical therapy without any benefit. She cannot afford more physical therapy. She notes the pain to impact quality of life and activities daily significantly. She denies any loss of bowel or bladder function, fevers, chills, stumbling, falling, dropping things. The patient states that she is miserable. She did see Dr. Olvera who offered the patient the option of surgical intervention versus a referral to pain management to discuss injection therapy. Past medical history, family history, surgical history, social history, medication list, allergies and complete review of systems were obtained and reviewed. Pertinent findings are noted in the history of present illness. PHYSICAL EXAMINATION: Constitutional: No acute distress, well nourished, well developed. Eyes: No exudate or deformity. Extraocular muscles are intact. Ears, nose, mouth and throat: Ears and nose are without deformity. Normal appearing tongue and teeth. Neck: No noticeable masses, tracheal deviation or asymmetry. No thyromegaly on inspection. Respiratory: No gasping or shortness of breath. No accessory muscle use. Cardiovascular: Pulses in extremities are palpable. No noticeable lower extremity edema or varicosities. Gastrointestinal: No distention. No pain with palpation. Skin: Inspection of the skin reveals no rashes, lesions or ulcers. Normal skin turgor. Psychiatric: Oriented to time, place and person. Normal mood and affect. Musculoskeletal: Patient arises slowly from a seated position. There is limited range of motion of the cervical spine secondary to pain. Full range of motion bilateral shoulders without pain. No gross deformity or asymmetry. Mildly tender left cervical paraspinal muscles. Neurologic: 5/5 strength throughout bilateral upper and lower extremities. Normal gait. Deep tendon reflexes are diminished in the left upper extremity at biceps. Huy's sign is negative bilaterally. Positive Spurling's test on the left. IMAGING STUDIES: I was able to review the magnetic resonance imaging report from 11/18/18 which demonstrates degenerative disc disease at C3-4, C4-5 and C5-6. There is moderate disc space narrowing and disc desiccation at C4-5 and C3-4. There is a disc herniation noted at C4-5 causing moderate stenosis. Bilateral facet hypertrophy noted. There is moderate to severe disc degeneration at C5-6 and bilateral facet osteoarthropathy. ASSESSMENT/PLAN: This is a 68 year old female who based on her history, physical examination and imaging studies is suffering from cervical radiculitis secondary to disc displacement and degenerative disc disease. Her pain is severe. It impacts quality of life and activities of daily living. The pain has not responded to appropriate conservative care. The patient and I discussed treatment options. I did recommend a C6-7 epidural steroid injection with a left-sided bias to address the patient's symptoms. A detailed description of the procedure including its risks, benefits and alternatives were discussed with the patient. She wishes to proceed. She asks about pain medication to help manage her symptoms. I offered her a prescription for gabapentin. Possible side effects were reviewed. She wishes to give it a try. A titration schedule was provided to the patient to get to 600 mg three times per day. [place] [employer] Prescription Reporting System report was reviewed and is consistent with the previous medications prescribed. The patient will follow up two weeks after the injection to assess response and call the clinic with any questions or concerns. The patient agrees with plan of care. Cain Rowley M.D. lkr Dictated: 12/17/2018 #[id number] Typed: 12/19/2018 #[id number] cc: Cain Rowley M.D. Kayleigh Gay M.D. Stas Olvera MD [facility] Comment on above: Result Comment: Elec tronically Signed By: Amrik WADE, Cain Perla\.br\Date and Time Signed: 12/24/18 13:15 EDT Message - General Officeon 0 12-23-2018 Message - General Office From: Sarah Laws To: [facility] Heavy Mobile Equipment Operator; Sent: 12/17/2018 13:40:24 EDT Subject: [place]-Medicare [employer]-ELENA-12/17/18 From: Thais Nieto ([facility] Heavy Mobile Equipment Operator) To: [facility] Pain Clerical Inbox; Sent: 12/23/2018 13:33:03 EDT Subject: 2nd call Arleen Submitted prior auth online through [employer]. Medicare [employer] approved auth #[id number] good 12/23/18 to 03/23/19. Called patient to schedule C6/7 MAUREEN no anesthesia Dx M54.12, patients number has been changed or disconnected called Ag on patients HIPAA no answer unable to leave a message. From: Thais Nieto ([facility] Clerical Inbox) To: [facility] Clerical Inbox; Sent: 12/23/2018 14:32:36 EDT Subject: RE: 2nd call Arleen Patient called back, scheduled procedure for 12/30/18, scheduled follow up for 01/17/19 at 10:10am. [facility] Coding Summary.on 12-20-2018 Coding Summary. CODING DATE: 019 [facility] STATUS: Home (Routine DC) PAYOR: Medicare ADMIT DX: REASON FOR VISIT DX: M54.2 Cervicalgia FINAL DX: PRINCIPAL: M54.12 Radiculopathy, cervical region SECONDARY: M50.20 Other cervical disc displacement, unspecified cervical region M50.30 Other cervical disc degeneration, unspecified cervical region Z79.82 nursing home (current) use of aspirin Z79.1 nursing home (current) use of non-steroidal anti-inflammatories (NSAID) PROCEDURES DOCTOR NAME DATE NOTE: The code number assigned matches the documented diagnosis and / or procedure in the patient's chart. However, the narrative phrase printed from the coding software may appear abbreviated, or result in slightly different terminology. Coded By: Linh Devlin CphT Date Saved: 12/20/2018 01:35 pm Normal [facility] Coding Summary.on 12-03-2018 Coding Summary. CODING DATE: 019 FINAL [facility] STATUS: Home (Routine DC) PAYOR: Medicare ADMIT DX: REASON FOR VISIT DX: M54.2 Cervicalgia FINAL DX: PRINCIPAL: M50.10 Cervical disc disorder with radiculopathy, unspecified cervical region SECONDARY: M47.12 Other spondylosis with myelopathy, cervical region F17.200 Nicotine dependence, unspecified, uncomplicated PROCEDURES DOCTOR NAME DATE NOTE: The code number assigned matches the documented diagnosis and / or procedure in the patient's chart. However, the narrative phrase printed from the coding software may appear abbreviated, or result in slightly different terminology. Coded By: Linh Devlin CphT Date Saved: 12/03/2018 01:31 pm Normal [facility] Consultation Noteon 12-04-19 Consultation Note HOSPITAL REGULATIONS : ALL Positive Important Negative Findings Shall Be Recorded. Date of 11/26/2018 Consultation: Attending Kayleigh Gay M.D. Physician: Consulting Stas Olvera MD Physician: CHIEF COMPLAINT: Neck and left arm misery. 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 She denies any right-sided symptoms. She states this misery began approximately five months ago. She has been through physical therapy. She has been given oral steroid. She has not had any cervical epidural steroid injections. She states her left arm is worse now than when it started. She feels like she is getting weak in her left hand. Again she denies any right-sided symptoms, denies any clumsiness in her gait. Denies any bowel or bladder symptoms. For PAST MEDICAL/PAST SURGICAL, MEDICATIONS, ALLERGIES, PSYCHOSOCIAL HISTORY, REVIEW OF SYMPTOMS and FAMILY HISTORY: Please refer to the scanned new patient questionnaire for these. Of note, the patient has extensive coronary artery disease status post coronary artery bypass surgery in July 2015 at the [facility] and she does smoke. REVIEW OF SYSTEMS: Significant for easy bruising, history of cancer, heartburn and depression. PHYSICAL EXAMINATION: General: She is alert and oriented x3, in no acute distress. She appears somewhat malnourished. Lower extremities: She rises from a seated position without difficulty. She can heel walk and toe walk. She has difficulty tandem walking. She gets on and off the examining room table cautiously. Negative straight leg raises bilaterally. Bilateral 5/5 all muscle groups. Sensation is globally intact to light touch L2-S1 dermatomes. Deep tendon reflexes are hyperactive and equal knee jerk and ankle jerk. She has no clonus. Fairly full nontender range of motion hips, knees, ankles. Upper extremities: She is globally weak in her left upper extremity compared to her right, maybe 5-/5, I think this is somewhat pain limited. Deep tendon reflexes are normoactive and equal biceps, triceps, brachial radialis. She has a Huy's sign bilaterally. Fairly full nontender range of motion shoulders, elbows, wrists. Well perfused bilateral upper extremities. Spine: Cervical spine range of motion is diminished in all planes especially extension. She has a negative Lhermitte's sign. INVESTIGATIONS: MRI of her cervical spine performed recently at an outside institution shows better than age-appropriate spondylosis but she does have two large disc complexes at C4-C5 causing cord compression and then C5-C6 causing borderline cord compression. IMPRESSION: A 68-year-old female right-hand dominant smoker with cervical disc disease, cord compression and early myeloradiculopathy. PLAN: I told the patient I was concerned about her neck. I am kind of surprised her right side is not affected more than it is. I told her she is symptomatic from cervical myelopathy, therefore, she has the option of surgery. I told her I do not know how she will feel after the surgery but if she wants to consider one cervical epidural steroid injection, I think that is a very reasonable thing to try. I told she has to be followed every four to six months as the natural progression of the disease is worsening myelopathy and loss of function. She will consider options but will set her up to see our Pain Management doctors here to be considered for a cervical epidural steroid injection. If she gets the injection, I want to see her back two to three weeks after the injection. Stas Olvera MD gls Dictated: 11/26/2018 #[id number] Typed: 12/03/2018 #[id number] cc: Kayleigh Gay M.D. Stas Olvera MD [facility] Comment on above: Result Comment: Elec tronically Signed By: Wade WADE, Stas Napier\.br\Date and Time Signed: 12/03/18 13:16 EDT History and Physicalon 12-11 HIM IP Note OR Media Liaison Officer [facility] OPERATIVE REPORTon 8 OPERATIVE REPORT [address] [address] OPERATIVE REPORTPATIENT NAME: DAREK MEJÍA : 1950MED REC NO: [id number] ROOM:ACCOUNT NO: [id number] ADMIT DATE: 12/11/2017PROVIDER: Dustin McmahonDATE OF PROCEDURE: 12/11/2017PREOPERATIVE DIAGNOSES:1. Reopened macular hole, right eye.2. Nuclear sclerotic cataract, right eye.POSTOPERATIVE DIAGNOSES:1. Reopened macular hole, right eye.2. Nuclear sclerotic cataract, right eye.SURGEON: Dustin Mcmahon MDANESTHESIA: Local monitored anesthesia care.COMPLICATIONS: None.SURGERIES PERFORMED:1. Pars plana vitrectomy.2. Membrane stripping.3. Fluid-air exchange.4. Air-C3F8, 16%, exchange, right eye.JUSTIFICATION: This is a very pleasant 67-year-old female who underwentvitrectomy surgery and macular hole closure. The macular hole has reopenedand the patient desired an attempt to visually rehabilitate the right eyethrough vitrectomy surgery. Informed consent was obtained. The patientwas told of a 50-50 chance of closing the macular hole with some visualimprovement with successful surgery.The patient was taken to the operating room, where IV sedation was given. A retrobulbar block was applied with a 50:50 mixture of Marcaine andlidocaine. After good akinesia and anesthesia were established, thepatient was prepped and draped in the usual sterile fashion. A wire lidspeculum was used to open up the lids of the right eye. 25-gauge trocarswere placed in the temporal quadrants 4 mm posterior to the limbus in thesuperonasal quadrant. The infusion trocar was placed in the inferotemporaltrocar and was directly visually inspected prior to being turned on. Peripheral vitreous skirt was trimmed with the vitrectomy instrument. ICGwas then used to stain the internal limiting membrane. The Portillo brush wasused to dissect and remove and extend the removal of the internal limitingmembrane out beyond the arcades. The patient then had a fluid-air exchangeperformed, 10 minutes were allowed to elapse, and a gas-gas exchange wasperformed with 16% non-expansile mixture of C3F8. Each of the trocars wereremoved. Each site was rendered airtight by pinching it with a pair oftoothed forceps, and the pressure in the eye at the end of the surgery wasnormal to palpation. The patient then had Ancef solution placed over theright eye, patch and Kovacs shield were placed over the right eye followinghaving placed erythromycin ointment and Cyclogyl drops over her right eye. The patient was given instructions on positioning and will be seen infollowup on 12/12/2017.DUSTIN Ren DABBSD: 12/11/2017 11:14:16 [id number]#: [id number] Doc#: [id number]: Normal [facility] Op Noteon 12-11-2017 HIM IP Note OR Media Liaison Officer [facility] History and Physicalon 10-23 HIM IP Note OR Media Liaison Officer [facility] OPERATIVE REPORTon 8 OPERATIVE REPORT [address] [address] OPERATIVE REPORTPATIENT NAME: DAREK MEJÍA : 1950MED REC NO: [id number] ROOM:ACCOUNT NO: [id number] ADMIT DATE: 10/23/2017PROVIDER: Dustin McmahonDATE OF PROCEDURE: 10/23/2017PREOPERATIVE DIAGNOSES:1. Stage IV macular hole, right eye.2. Nuclear sclerotic cataract, right eye.POSTOPERATIVE DIAGNOSES:1. Stage IV macular hole, right eye.2. Nuclear sclerotic cataract, right eye.SURGEON: Dustin Mcmahon MDANESTHESIA: Local monitored anesthesia care.COMPLICATIONS: None.PROCEDURES PERFORMED:1. Pars plana vitrectomy.2. Membrane stripping and membranectomy under ICG guidance.3. Fluid-air exchange.4. Air-gas exchange with 20% nonexpansile SF6.JUSTIFICATION: This very pleasant 67-year-old female has a history ofdecreased vision in the right eye for some weeks. She was evaluated andfound to have a macular hole and had discussed with her the options ofmanagement as well as observation. She chose an attempt to visuallyrehabilitate the right eye through vitrectomy surgery.OPERATIVE PROCEDURE: She was taken to the operating room where IV sedationwas given, then a retrobulbar block was applied with a 50:50 mixture ofMarcaine and lidocaine. After good akinesia and anesthesia wasestablished, the patient was prepped and draped in the usual sterilefashion. A wire lid speculum was placed in the right eye to open up thelids. 25-gauge trocars were placed in the temporal and superonasalquadrants, 4 mm posterior to the limbus, and the infusion cannula wasplaced in the inferotemporal trochar and directly visually inspected priorto being turned on. Core vitrectomy was performed. The posterior hyaloidwas still attached to the optic nerve and was detached under ICG guidance,and the vitreous was consumed out to the limits of visualization. One ortwo tiny intraretinal hemorrhages developed in the inferotemporal quadrant,but no retinal breaks, holes, or tears were seen.ICG was then used to stain the internal limiting membrane for 2 minutes. This was then removed from the eye. The patient then had a Portillo brushintroduced to the eye, and the internal limiting membrane was lysed andthen removed circumferentially from around the fovea for approximately 2disc diameters. A small intraretinal hemorrhage developed in thesuperotemporal area away from the fovea, but bleeding did not discontinue,and this was where the internal limiting membrane was most adherent.The patient's peripheral retina was inspected with scleral indentation anddepression and indirect ophthalmoscopy, and no peripheral breaks, tears,holes, or detachment were seen. A gas-gas exchange was performed with 20%nonexpansile mixture of SF6, and then the patient had the pressure checked,and it was normal to palpation. The superonasal trocar had been loose and,therefore, its site was closed with interrupted 7-0 Vicryl suture as wasthe conjunctivae and Tenon's capsule over it. The patient then had each ofthe other 2 trocars removed in the temporal quadrants and gentle pressurewas applied to the areas with a Q-tip rendering them airtight. The patienthad Ancef solution placed over the right eye. Erythromycin ointment andCyclogyl drops were placed over the right eye, and the patient had a patchand shield placed over the right eye. The patient was taken to therecovery room in good condition with instructions on how to positionpostoperatively , sleeping with her left side down and facedown in a readingposition for 4 hours a day for the first 4 days postoperatively.DUSTIN MCMAHOND: 10/23/2017 11:29:16 CD/[id number]#: [id number] Doc#: [id number]: Normal [facility] Op Noteon 10-23-2017 HIM IP Note OR Media Liaison Officer [facility] Progress Noteon 10-23-2017 HIM IP Note OR Media Liaison Officer [facility] HIM IP Note OR Media Liaison Officer [facility] No Panel Information [facility] Encounters Encounter Date Encounter Type Care Provider Facility Start: 08-01-2023 End: 08-01-2023 ambulatory EHAB [facility] Start: 07-21-2023 Evaluation and management of inpatient MAHAMED [facility] Start: 07-20-2023 Evaluation and management of inpatient [facility] Start: 07-20-2023 Evaluation and management of inpatient [facility] Start: 07-20-2023 Evaluation and management of inpatient WHITNEY [facility] Start: 07-20-2023 [facility]: 07-19-2023 End: 07-22-2023 Evaluation and management of inpatient [facility] Start: 07-19-2023 End: 07-19-2023 ambulatory [facility] Start: 04-23-2023 End: 04-23-2023 ambulatory [facility] Start: 01-31-2023 End: 01-31-2023 ambulatory [facility] Start: 12-21-2022 End: 12-21-2022 ambulatory [facility] Start: 11-30-2022 End: 12-01-[address] KAYLEIGH GAY . 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 Facility:[facility] Start: 06-19-2022 End: 06-20-[address] KAYLEIGH GAY . Facility:[facility] Start: 02-20-2022 End: 02-21-[address] OPAL CARVALHO Facility: Start: 04-10-2019 End: 04-10-2019 Patient encounter procedure ESTEBAN ClaireLia LÓPEZ [facility] Start: 03-31-2019 End: 04-03-2019 Patient encounter procedure OLGA PARISI [facility] Start: 12-11-2017 End: 12-11-2017 Ambulatory [facility] Start: 10-23-2017 End: 10-23-2017 Ambulatory [facility] Start: 09-28-2017 End: 09-29-2017 Ambulatory DEFAULT PHYSICIAN Facility:[facility] Procedures Date Procedure Procedure Detail Performing Clinician Start: 10-30-2022 IOL BIOMETRY W/ IOL CALC OS (LEFT EYE) Aleksandar Wilson MD Work Phone: Start: 08-15-2022 Post-cataract laser surgery Aleksandar Wilson MD Work Phone: Start: 01-10-2020 History of coronary artery bypass grafting Hx of CABG Aleksandar Castillo MD Work Phone: Start: 04-10-2019 INCENTIVE SPIROMETRY RT OLGAKARTHIK PARISI Start: 04-10-2019 Level iv surg pathol ogy gross&microscopic exam OLGA ISAK Start: 04-10-2019 INCENTIVE SPIROMETRY RT OLGA PARISI Start: 04-10-2019 DISCHARGE PATIENT ELIDIA D ISAK Start: 04-10-2019 FLUORO FOR SURGICAL PROCEDURES OLGA PARISI Start: 04-10-2019 Level iv surg pathol ogy gross&microscopic exam OLGA PARISI Start: 04-10-2019 INITIATE OXYGEN THER APY PROTOCOL OLGA PARISI Start: 04-10-2019 TYPE AND SCREEN OLGA PARISI Start: 04-10-2019 ASSESS OLGA PARISI Start: 04-10-2019 BEDREST OLGA PARISI Start: 04-10-2019 Continuous pulse oximetry OLGA PARISI Start: 04-10-2019 ENCOURAGE DEEP BREAT LEANDRO AND COUGHING OLGA PARISI Start: 04-10-2019 INCENTIVE SPIROMETRY RT OLGA PARISI Start: 04-10-2019 NEURO/VASCULAR CHECKS D RANULFO PARISI Start: 04-10-2019 NURSING COMMUNICATION D RANULFO PARISI Start: 04-10-2019 INITIATE OXYGEN THER APY PROTOCOL OLGA PARISI Start: 04-10-2019 NOTIFY PHYSICIAN (SPECIFY) OLGA PARISI Start: 04-10-2019 PULSE OXIMETRY SPOT CHECK OLGA PARISI Start: 04-10-2019 VITAL SIGNS OLGA PARISI Start: 04-02-2019 Cv strs tst xers&/or rx cont ecg i&r only OLGA PARISI Start: 03-31-2019 Myocardial spect mul tiple studies OLGA PARISI Start: 01-28-2019 End: 01-28-2019 Anesthesia consultation Start: 12-11-2017 DISCHARGE PATIENT NONA MCMAHON Start: 12-11-2017 CHLORIDE (POC) DUSTIN MCMAHON Start: 12-11-2017 CREATININE W/GFR POI NT OF CARE DUSTIN MCMAHON Start: 12-11-2017 LACTIC ACID,POINT OF CARE DUSTIN MCMAHON Start: 12-11-2017 POCT GLUCOSE DUSTIN CHRISTOPHER Start: 12-11-2017 POTASSIUM (POC) DUSTIN MCMAHON Start: 12-11-2017 SODIUM (POC) DUSTIN CHRISTOPHER Start: 12-11-2017 EKG 12-LEAD DUSTIN CHRISTOPHER Start: 12-11-2017 INITIATE OXYGEN THER APY PROTOCOL DUSTIN MCMAHON Start: 12-11-2017 POC CHEM8 INCLUDES C ALC. ANION GAP DUSTIN MCMAHON Start: 10-23-2017 DISCHARGE PATIENT NONA MCMAHON Start: 10-23-2017 Continuous pulse oximetry DUSTIN MCMAHON Start: 10-23-2017 INITIATE OXYGEN THER APY PROTOCOL DUSTIN MCMAHON Start: 10-23-2017 BEDREST DUSTIN CHRISTOPHER Start: 10-23-2017 ENCOURAGE DEEP BREAT LEANDRO AND COUGHING DUSTIN MCMAHON Start: 10-23-2017 NOTIFY PHYSICIAN (SPECIFY) DUSTIN MCMAHON Start: 10-23-2017 NURSING COMMUNICATION Clair MCMAHON Start: 10-23-2017 VITAL SIGNS DUSTIN CHRISTOPHER Start: 10-23-2017 POCT POTASSIUM DUSTIN PINEDOBS Start: 10-23-2017 POTASSIUM (POC) DUSTIN MCMAHON Start: 10-23-2017 INITIATE OXYGEN THER APY PROTOCOL DUSTIN PINEDOBS Start: 10-23-2017 NOTIFY PHYSICIAN (SPECIFY) DUSTIN MCMAHON Start: 10-23-2017 VITAL SIGNS DUSTIN CHRISTOPHER Plan of Treatment Date Care Activity Detail Author Start: 01-08-2025 LIPID SCREEN LIPID SCREEN [facility] Start: 01-27-2023 DIABETES SCREEN DIABETES SCREEN [facility] Start: 09-03-2022 ADVANCE DIRECTIVE DISCUSSION ADVANCE DIRECTIVE DISCUSSION [facility] Start: 09-03-2022 DEPRESSION ASSESSMENT DEPRESSION ASS ESSMENT [facility] Start: 05-04-2022 Influenza vaccination INFLUENZA (#1) [facility] Start: 09-13-2021 COVID-19 VACCINE (4 - Booster for Moderna series) COVID-19 VACCINE (4 - Booster for Moderna series) [facility] Start: 09-03-2021 ADVANCE DIRECTIVE DISCUSSION ADVANCE DIRECTIVE DISCUSSION [facility] Start: 09-03-2021 DEPRESSION ASSESSMENT DEPRESSION ASS ESSMENT [facility] Start: 01-08-2021 Hepatitis B surface antibody level LDL CHOLESTEROL [facility] Start: 07-26-2016 PNEUMOCOCCAL: 65+ (2 - PCV) PNEUMOCOCCAL: 65+ (2 - PCV) [facility] Start: 2014 BONE DENSITY BONE DENSITY [facility] Start: 1999 SHINGRIX VACCINE (1 of 2) SHINGRIX V ACCINE (1 of 2) [facility] Start: 1994 COLOGUARD (FIT-DNA) COLOGUARD (FIT-D NA) [facility] Start: 1994 Colonoscopy COLONOSCOPY [facility] Start: 1994 COLORECTAL CANCER SCREENING COLORECTAL CANCER SCREENING [facility] Start: [address] COLONOGRAPHY [facility] Start: 1994 FECAL OCCULT BLOOD FECAL OCCULT BLOO D [facility] Start: 1994 SIGMOIDOSCOPY SIGMOIDOSCOPY [facility] Start: 1989 Mammography MAMMOGRAM [facility] Start: 1979 Zoledronic acid therapy ALPHA- 1 ANTITRYPSIN DEFICIENCY SCREENING [facility] Start: 1968 Urine microalbumin profile DTAP,TDAP ,TD (1 - Tdap) [facility] Start: 1967 ANNUAL PCP TEAM 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 DEVELOPMENT 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 LEATHA DISEASE VISIT ANNUAL PCP TEAM CHRONIC DISEASE VISIT [facility] Start: 1967 BP CONTROLLED (<130/80) BP CONTROLLE D (<130/80) [facility] Start: 1967 HEPATITIS C SCREENING HEPATITIS C SC REENING [facility] Start: 1967 SPIROMETRY SPIROMETRY [facility] Immunizations Immunization Date Immunization Notes Care Provider Fa cility 06-07-2022 unknown vaccine or immune globulin [facility] Work Phone: [facility] 05-25-2021 influenza, injectable,quadrivalent , preservative free, pediatric [facility] Work Phone: [facility] 09-18-2017 pneumococcal conjuga te vaccine, 13 valent [facility] Work Phone: [facility] 06-03-2017 influenza, seasonal, injectable [facility] Work Phone: [facility] 07-07-2016 influenza virus vaccine, unspecified formulation [facility] Work Phone: [facility] 06-14-2016 influenza, injectabl e, quadrivalent, preservative free [facility] Work Phone: [facility] 07-26-2015 influenza, high dose seasonal, preservative-free Aleksandar Castillo MD Work Phone: [facility] 07-26-2015 pneumococcal polysaccharide vaccine, 23 valent Aleksandar Castillo MD Work Phone: [facility] Payers Date Payer Category Payer Medicare [employer] MEDICARE A ETNA MEDICARE PPO [id number] 2021-Present [phone] [id number] [place] [address] PPO [id number] 1959 Medicare [id number] 1959 Medicare [id number] 1950 Unknown [id number] 1950 Unknown [id number] 1950 Unknown [id number] 1950 Unknown [id number] 1950 Unknown [id number] 1950 Unknown [id number] 1949 Unknown [id number] 1949 Unknown [id number] 1949 Unknown [id number] 1950 Unknown [id number] Unknown Social History Date Type Detail Facility Start: 09-03-1962 End: 10-30-2022 Tobacco smoking status VAIS Smokes tobacco daily [facility] Start: 09-03-1962 History of tobacco use Cigarette Smo ker [facility] Start: 03-22-2021 End: 10-30-2022 Cigarettes smoked current (pack per day) - Reported 0.5 [facility] Start: 03-22-2021 End: 10-30-2022 Tobacco use and exposure Smokeless tobacco non-user [facility] Start: 08-15-2022 End: 10-30-2022 Alcohol intake Current drinker of alcohol (finding) [facility] Start: 03-22-2021 Alcohol Comment rare/social [facility] Start: 1950 Sex Assigned At Not on file C [facility] Medical Equipment Procedure Code Equipment Code Equipment Origin al Text Equipment Identifier Dates Graft Gelweave 3 0mm Straight Gelatin Polyester Woven 30cm Cardiovascular - [id number] Start: 01-10-2020 Edgar Cv 4x.5in Thk1.65mm Ptfe - [id number] Start: 07-20-2015 Edgar Thk1.65mm P tfe [id number] Cardiovascular Patch Sterile - [id number] Start: 01-10-2020 Lens Iol 0d +21. 5 [facility] Abs - [id number] Start: 04-13-2021 Comment on above: Description: -0.47 Patch Thk.5mm Esteban vine Pericardial 52k71ry Cardiovascular Resilience Durable - [id number] Start: 01-10-2020 Valve Aort 23mm Crp-Ed Thfx - [id number] Start: 01-10-2020 Clinical Notes 01-09-2020 to 08-01-2023 XIOMARA Farmer - 10/30/2022 3:19 PM ESTTelephone Encounter - Rayna Martin - 10/18/2022 1:30 PM ESTTelephone Encounter - Haven Moreno LPN - 10/18/2022 1:15 PM EST Note Date & Type Note Facility 08-01-2023 Note [facility] Cardiology Clinic Note Chief Complaint: Patient here for follow up [facility]. Underwent heart cath and AMITA on 07/[address] Knowles. She was put back on spironolactone but she cannot tolerate it due to nausea and vomiting. Carvedilol was stopped. Furosemide was increased to every day, but she is still taking it every other day. She is breathing much better she states, and has not had to use the O2 she was sent home with. Doing much better. Denies chest pain, lightheadedness, palpitations, and bleeding on Eliquis. LE edema is improving also. She sees Dr. Gay tomorrow for follow up. HPI: Darek Mejía is a 73 y.o. female Here with routine follow-up Feels much better after AMITA and cardioversion; less short of breath, no lower extremity edema. She denies chest pain, she has had no significant palpitations, lightheadedness or dizziness. No syncope. Cardiology ROS: Review of Systems Cardiovascular: Positive for dyspnea on exertion. Hematologic/Lymphatic: Bruises/bleeds easily. Musculoskeletal: Positive for arthritis, back pain, joint pain and myalgias. All other systems reviewed and are negative. Past Medical History She has a past medical history of Coronary artery disease, Heart valve disease, and Hypertension. Surgical History She has a past surgical history that includes Cardiac catheterization; Coronary artery bypass graft; Cholecystectomy; Cervical spine surgery; Hysterectomy; Mastectomy; and Electrical Cardioversion (07/20/2023). Social History She reports that she has been smoking cigarettes. She has been smoking an average of .5 packs per day. She has never used smokeless tobacco. She reports current alcohol use. No history on file for drug use. Family History Family History Problem Relation Name Age of Onset Coronary artery disease Father Diabetes Father Allergies Tetanus vaccines and toxoid, Allopurinol, Spironolactone, Tetanus and diphther. tox (pf), and Isosorbide dinitrate Medications Current Outpatient Medications: apixaban (Eliquis) 5 mg tablet, Take 1 tablet (5 mg) by mouth in the morning and at bedtime., Disp: 60 tablet, Rfl: 0 aspirin 81 mg chewable tablet, Chew 1 tablet (81 mg) once daily as directed., Disp: 90 tablet, Rfl: 3 atorvastatin (Lipitor) 80 mg tablet, TAKE 1 TABLET BY MOUTH EVERY DAY, Disp: 90 tablet, Rfl: 3 cholecalciferol, vitamin D3, 50 mcg (2,000 unit) capsule, Take by mouth in the morning., Disp: , Rfl: furosemide (Lasix) 20 mg tablet, Take 1 tablet (20 mg) by mouth in the morning., Disp: 90 tablet, Rfl: 2 levothyroxine (Synthroid, Levoxyl) 100 mcg tablet, Take 100 mcg by mouth in the morning., Disp: , Rfl: liothyronine (Cytomel) 25 mcg tablet, Take 25 mcg by mouth in the morning., Disp: , Rfl: lisinopril 20 mg tablet, Take 1 tablet (20 mg) by mouth in the morning., Disp: 90 tablet, Rfl: 3 nitroglycerin (Nitrostat) 0.4 mg SL tablet, Sublingual, Disp: , Rfl: pantoprazole (ProtoNix) 40 mg EC tablet, Take 40 mg by mouth in the morning., Disp: , Rfl: potassium chloride CR (Klor-Con) 10 mEq ER tablet, Take 10 mEq by mouth every other day., Disp: , Rfl: sertraline (Zoloft) 100 mg tablet, Take 100 mg by mouth in the morning., Disp: , Rfl: spironolactone (Aldactone) 25 mg tablet, Take 1 tablet (25 mg) by mouth in the morning., Disp: 90 tablet, Rfl: 3 tiZANidine (Zanaflex) 4 mg tablet, Take 4 mg by mouth in the morning, afternoon, and at bedtime., Disp: , Rfl: Trelegy Ellipta 100-62.5-25 mcg blister with device, , Disp: , Rfl: Last Recorded Vitals BP (!) 186/84 (BP Location: Left arm, Patient Position: Sitting) Pulse 68 Ht 1.702 m (5' 7 ) Wt 54 kg (119 lb) SpO2 98% BMI 18.64 kg/m??? Physical Examination: GENERAL: alert and oriented x3, well developed, in no acute distress. HEAD: atraumatic, normocephalic. EYES: JUSTA, EOMI. NECK: trachea midline, no JVD present, no carotid bruits present. CARDIAC: S1, S2 present. RRR. Harsh 3/6 ejection systolic murmur heard best over the aortic area. RESPIRATORY: CTAB, no increased effort of breathing, no rales, rhonchi, or wheezing. ABDOMEN: soft, nontender, nondistended. EXTREMITIES: no lower extremity edema, peripheral pulses are 2+ bilaterally. No rash/skin discoloration present. NEURO: strength/sensation equal and symmetric in bilateral upper and lower extremities. PSYCH: appropriate mood, affect, and judgement. Investigations: Echocardiogram 03/15/2021 Normal global left ventricular systolic function, bioprosthetic valve in the aortic position with normal function. Mild mitral and tricuspid regurgitation. Normal right-sided pressures. Lexiscan stress test 03/16/2021 A small area of very mild decreased but reversible defect in the inferior lateral wall involving the mid and distal aspect. This does not appear significantly changed. Normal wall motion with ejection fraction. Pulmonary function test 03/15/2021: Severe obstructive karley (more content not included)... [facility] 07-22-2023 Note 07/22/23 1106 Home Oxygen Therapy Evaluation Pulse Oximetry on room air at Rest 87 Pulse Ox on O2 with nasal cannula while at rest 95 (placed patient on 2lpm via nasal cannula) Patient Qualification for home oxygen Qualifies $ Pulse Oximetry Single [facility] 07-22-2023 Note Hospital Medicine Discharge Summary Final Discharge Diagnosis: Newly diagnosed Atrial fibrillation, CHADVASc of 5 s/p AMITA Cardioversion Post cardioversion bradycardia Severe Bioprosthetic Aortic valve stenosis Admission Diagnosis: Atrial fibrillation ([facility]) [I48.91] Hospital course: Darek Mejía is a 73 y.o. female with PMH of CAD s/p CABG x5 and revision CABG in 2019 (CH-LAD, rSVG- Diagonal, SVG-OM, SVG-PDA-PLV), HFpEF, valvular disease s/p bioprosthetic AVR, Hypertension who presented as a direct admit from our cardiology office, she denied any cardiac symptoms, Her EKG showed possible Afib with heart rate fluctuating in between 40s & 120s , and her Echo showed Evidence of severe bioprosthetic valve stenosis with DVI < 0.24. She presented here for evaluation of her valve and Afib. And had left and right heart cath on 07/20 and showed: 1) CH to LAD is patent. Other bypass grafts are not visualized 2) relatively normal RHC with mildly elevated wedge pressure Patient on the same day also had AMITA cardioversion for her A-fib and she converted to sinus rhythm Post conversion patient did not tolerate beta-jose or amiodarone due to bradycardia. Patient will be on Eliquis on discharge. Today going home and home O2 eval to be done before discharge. For patient's severe bioprosthetic aortic valve stenosis patient needs to follow-up with cardiology as an outpatient and might require further imaging for any surgical versus TAVR procedure. Dear Dr. Deidra MD, Darek is advised to follow up with you within 1-2 weeks. Follow-up with: Cardiology Scheduled appointments: No future appointments. Your medication list START taking these medications Instructions Last Dose Given Next Dose Due apixaban 5 mg tablet Commonly known as: Eliquis Take 1 tablet (5 mg) by mouth in the morning and at bedtime. spironolactone 25 mg tablet Commonly known as: Aldactone Take 1 tablet (25 mg) by mouth in the morning. CHANGE how you take these medications Instructions Last Dose Given Next Dose Due furosemide 20 mg tablet Commonly known as: Lasix What changed: when to take this Take 1 tablet (20 mg) by mouth in the morning. CONTINUE taking these medications Instructions Last Dose Given Next Dose Due aspirin 81 mg chewable tablet Chew 1 tablet (81 mg) once daily as directed. atorvastatin 80 mg tablet Commonly known as: Lipitor TAKE 1 TABLET BY MOUTH EVERY DAY cholecalciferol (vitamin D3) 50 mcg (2,000 unit) capsule levothyroxine 100 mcg tablet Commonly known as: Synthroid, Levoxyl liothyronine 25 mcg tablet Commonly known as: Cytomel lisinopril 20 mg tablet Take 1 tablet (20 mg) by mouth in the morning. nitroglycerin 0.4 mg SL tablet Commonly known as: Nitrostat pantoprazole 40 mg EC tablet Commonly known as: ProtoNix potassium chloride CR 10 mEq ER tablet Commonly known as: Klor-Con sertraline 100 mg tablet Commonly known as: Zoloft tiZANidine 4 mg tablet Commonly known as: Zanaflex Trelegy Ellipta 100-62.5-25 mcg blister with device Generic drug: [id number] STOP taking these medications carvedilol 12.5 mg tablet Commonly known as: Coreg Where to Get Your Medications These medications were sent to [facility]/pharmacy #[id number] AT [place] [id number] apixaban 5 mg tablet Darek is allergic to tetanus vaccines and toxoid, allopurinol, spironolactone, tetanus and diphther. tox (pf), and isosorbide dinitrate. Disposition: Home or Self Care Discharge Condition: Stable Code Status: Full Code Diagnostic Results Hematology: Results from last 7 days Lab Units 07/22/23 0431 07/21/23 0350 07/20/23 0531 WBC AUTO 10*3/uL 6.43 -- 5.76 HEMOGLOBIN g/dL 9.3* 9.5* 10.4* HEMATOCRIT % 29.1* 29.9* 32.3* MCV fL 84.6 -- 83.2 PLATELETS AUTO 10*3/uL 202 -- 262 Chemistry: Results from last 7 days Lab Units 07/21/23 0350 07/19/23 2137 SODIUM mmol/L 138 139 POTASSIUM mmol/L 3.8 3.5 CHLORIDE mmol/L 108* 104 CO2 mmol/L 23 28 BUN mg/dL 19 15 CREATININE mg/dL 0.68 0.66 GLUCOSE mg/dL 92 131* MAGNESIUM mg/dL 1.5* 1.6* CALCIUM mg/dL 9.7 10.7* Results from last 7 days Lab Units 07/21/23 0350 07/19/23 2137 AST U/L 21 23 ALT U/L 12 17 ALK PHOS U/L 97 132* BILIRUBIN TOTAL mg/dL 0.6 0.9 Test Results Pending At Discharge: Pending Labs Order Current Status Vitamin D 1,25 dihydroxy In process Diet at the time of discharge: regular diet and cardiac diet Activity: Normal activity as tolerated Objective Blood pressure 157/67, pulse 54, temperature 36.7 ???C (98.1 ???F), resp. rate 20, height 1.702 m (5' 7 ), weight 55.3 kg (122 lb), SpO2 93 %. General: Alert and oriented x3. Cardiology: Normal rate, regular rhythm. + Systolic murmur right sternal border Lungs: Clear to auscultation, no wheezes, rales or rh (more content not included)... [facility] 07-22-2023 Note Attestation signed by Kvng Bustamante MD at 07/22/2023 2:21 PM I personally saw and examined the patient on the same date of service as resident/fellow Cliff Egan. I discussed the findings and therapeutic plan with the resident/fellow Juancarlos Egan. I agree with the documentation, except for any edits/updates below. Teaching Physician's Revisions: as above Cardiology Progress Note Subjective Patient seen this morning, no chest pain sob, palpitations, over night patient was bradycardic with rates of 39. Patient was asymptomatic. Subjective: Reason for Consult: Afib / Bioprosthetic aortic valve stenosis HPI: Darek Mejía is a 73 y.o. female with PMH of CAD s/p CABG x5 and revision CABG in 2020 (CH-LAD, rSVG- Diagonal, SVG-OM, SVG-PDA-PLV), HFpEF, valvular disease s/p bioprosthetic AVR, Hypertension who presented as a direct admit from our cardiology office, she denied any cardiac symptoms, Her EKG showed possible Afib with heart rate fluctuating in between 40s & 120s , and her Echo showed Evidence of severe bioprosthetic valve stenosis with DVI < 0.24. She presented here for evaluation of her valve and Afib. Objective Objective: Patient Vitals for the past 24 hrs: BP Temp Temp src Pulse Resp SpO2 Weight 07/22/23 0800 157/67 36.7 ???C (98.1 ???F) -- 54 20 93 % -- 07/22/23 0641 -- -- -- -- -- -- 55.3 kg (122 lb) 07/22/23 0633 -- -- -- -- -- 93 % -- 07/22/23 0435 126/66 -- -- 51 23 93 % -- 07/22/23 0400 -- -- -- (!) 49 25 96 % -- 07/22/23 0002 132/83 -- -- 60 22 94 % -- 07/21/23 2024 118/67 -- -- 60 17 92 % -- 07/21/23 1700 129/69 36.6 ???C (97.8 ???F) Temporal 51 19 92 % -- 11/18/23 1130 (!) 112/48 36.8 ???C (98.2 ???F) Temporal 57 21 93 % -- Physical Examination: GENERAL: AOx3, in no acute distress. HEAD: Atraumatic, normocephalic. EYES: JUSTA, EOMI. NECK: No JVD present. CARDIAC: RRR. No murmur, rubs, or gallops. RESPIRATORY: CTAB, no increased effort of breathing. ABDOMEN: Soft, nontender, nondistended. EXTREMITIES: No lower extremity edema, peripheral pulses are 2+ bilaterally. NEURO: No focal deficits Relevant Lab Results Encounter Date: 07/19/23 ECG 12 lead Result Value Ventricular Rate 48 QRS DURATION 124 QT Interval 462 QTC CALCULATION(BAZETT) 412 R-[place] -64 T Wave [place] -82 Impression Wide QRS rhythm Left anterior fascicular block Left ventricular hypertrophy with QRS widening and repolarization abnormality ( [place] product ) Cannot rule out Septal infarct , age undetermined Abnormal ECG When compared with ECG of 20-JUL-2023 12:58, Wide QRS rhythm has replaced Sinus rhythm Lab Results Component Value Date TROPONINI 0.04 07/21/2023 No echocardiogram results found for the past 12 months No nuclear medicine results found for the past 12 months Relevant Imaging Results ECG 12 lead Wide QRS rhythm Left anterior fascicular block Left ventricular hypertrophy with QRS widening and repolarization abnormality ( Moris product ) Cannot rule out Septal infarct , age undetermined Abnormal ECG When compared with ECG of 20-JUL-2023 12:58, Wide QRS rhythm has replaced Sinus rhythm Assessment: Severe Bioprosthetic Aortic valve stenosis s/p cardiac catheterization on 07/20/2023 showing CH to LAD is patent, other grafts are not visualized, RHC is fairly compensated with mildly elevated wedge pressure Newly diagnosed Atrial fibrillation, CHADVASc of 5 s/p AMITA Cardioversion Post cardioversion bradycardia on amio and bb CAD s/p CABG x5 with revesion in 2020 at [facility] (CH-LAD, rSVG- Diagonal, SVG-OM, SVG-PDA-PLV) Aortic stenosis s/p surgical AVR in 2020. chronic HFpEF, NYHA Class II History of tricuspid valve repair Hypertension controlled. Plan: Switch Heparin to Eliquis 5 mg b.I.d Discontinue Amiodarone and Coreg for now. Continue with Aspirin, statin/Lipitor 80 mg, lasix 20 mg, lisinopril 20 mg, Aldactone 25 mg For patient's severe bioprosthetic aortic valve stenosis patient needs to follow-up with cardiology as an outpatient and might require further imaging for any surgical versus TAVR procedure Keep mag above 2 and potassium above 4 Cardiology will follow along. Juancarlos Egan MD PGY-2 Internal Medicine Resident [facility] 07-21-2023 Note Physical Therapy Physical Therapy Evaluation Patient Name: Darek Mejía : 1950 Today's Date: 07/21/2023 Time in: 1:57 PM Time out: 2:09 PM Total time: 12 mins Discharge Recommendation: Home with RW and 26/03 supervision; OP PT General Subjective: Mrs. Darek Mejía is a 73 year old female present for follow up on ECHO and ECG. Pt was admitted from cardiology for possible A-fib based on EKG results. Pt with history of CAD, bypass surgery, HTN, CHF, and fractured pelvis. Upon entery into room pt is supine in bed and is agreeable to PT felicity, RN also agreeable. Pt reports she fractured her pelvis approx 2 months ago from a fall. She states since the fracture, she has had difficulty with gait and unsteadiness. She reports she has a RW at home that she used for about a month, but now uses nothing. Patient Active Problem List Diagnosis Atelectasis Chronic systolic heart failure (CMS/HCC) Combined forms of age-related cataract of both eyes Coronary artery disease involving coronary bypass graft of [place] heart with angina pectoris (CMS/HCC) Dyslipidemia Encounter for support and coordination of transition of care Hx of CABG Hypervolemia Ischemic heart disease, chronic Macular hole of right eye Mild left ventricular systolic dysfunction Moderate protein-calorie malnutrition (CMS/HCC) Nonrheumatic aortic valve insufficiency Pleural effusion Benign hypertensive cardiomyopathy with heart failure (CMS/HCC) Smoking addiction Bradycardia CHF (congestive heart failure) (CMS/HCC) GERD (gastroesophageal reflux disease) Other emphysema (CMS/HCC) Atrial fibrillation (CMS/HCC) Acute heart failure with preserved ejection fraction (CMS/HCC) Nonrheumatic aortic valve stenosis Past Medical History: Diagnosis Date Coronary artery disease Heart valve disease Hypertension Past Surgical History: Procedure Laterality Date CARDIAC CATHETERIZATION CERVICAL SPINE SURGERY CHOLECYSTECTOMY CORONARY ARTERY BYPASS GRAFT ELECTRICAL CARDIOVERSION 07/20/2023 HYSTERECTOMY MASTECTOMY Precautions Precautions Medical Precautions: fall risk, telemetry, IV Pain Pain Assessment Pain Assessment: No/denies pain Cognition Cognition Overall Cognitive Status: Within Functional Limits Orientation Level: Oriented X4 General Assessment General Assessment Hearing: WNL Home Living Home Living Type of Home: House Lives With: Significant other Home Adaptive Equipment: Walker rolling (Pt reports she no longer uses) Home Layout: One level Home Access: Stairs to enter without rails Entrance Stairs-Rails: None Entrance Stairs-Number of Steps: 2 Bathroom Shower/Tub: Walk-in shower Bathroom Toilet: Handicapped height Bathroom Equipment: Built-in shower seat Prior Level of Function Prior Function Level of [place]: Independent with ADLs and functional transfers, Independent with homemaking with ambulation Prior Functional Mobility: Independent without device ADL Assistance: Independent Homemaking Assistance: Independent 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) Vision Basic Assessment Vision - Basic Assessment Current Vision: No visual deficits General Assessments Sensation Light Touch: No apparent deficits Static Sitting Balance Static Sitting-Balance Support: Feet supported, No upper extremity supported Static Sitting-Level of Assistance: Independent Static Standing Balance Static Standing-Balance Support: No upper extremity supported Static Standing-Level of Assistance: Contact guard Dynamic Standing Balance Dynamic Standing-Balance Support: No upper extremity supported Dynamic Standing Balance-Level of Assistance: Minimum assistance Functional Assessments Bed Mobility 1 Bed Mobility From 1: Supine Bed Mobility Type 1: To and from Bed Mobility to 1: Short sit Level of Assistance 1: Independent Transfer 1 Transfer From 1: Bed Transfer Type 1: To and from Transfer to 1: Stand Technique 1: Sit to stand, Stand to sit Transfer Device 1: none Transfer Level of Assistance 1: Contact guard Ambulation 1 Surface 1: Level tile Device 1: No device Assistance 1: Contact guard, Minimum assistance (CGA to Min A) Quality of Gait 1: Unsteadiness on feet, reduced step length with pt often crossing midline, pt grabbing onto wall and other surfaces Comments/Distance (ft) 1: 30 ft Outcome Assessments 6 Clicks (Mobility) Help from another person turning from your back to your side while in a flat bed without using bedrails: None Help from another person moving from lying on your back to sitting on the side of a flat bed without using bedrails: None Help from another person moving to and from a bed to a chair (including a wheelchair): A little Help from another person standing up from a chair using your arms (e.g. wheelchair or bedside chair): A little Help from another person to walk i (more content not included)... [facility] 07-21-2023 Note Hospital Medicine Daily Progress Note - 07/21/2023 11:41 AM; Room: [address] [place] [address] Admission: 07/19/2023 8:09 PM; Length of stay: 2 days THE HOSPITALIST TEAM PREFERS TO USE [employer] FOR COMMUNICATION 7AM-7PM. IF I DO NOT RESPOND WITHIN 15 MINUTES, PLEASE PAGE ME/CALL THROUGH THE INSPECTOR WEIGHTS AND MEASURES. FROM 7PM-7AM, PLEASE PAGE [phone](COVR) Code Status: Full Code Barriers to Discharge: Cardiology workup Expected Discharge Date: 2- days Discharge Destination: home Overview Patient is seen for evaluation and management of A. Fib and bioprosthetic AV stenosis. Subjective Seen today in her room, on 2 L NC, in no acute distress Physical Exam GENERAL: AOx3, in no acute distress. HEAD: Atraumatic, normocephalic. EYES: JUSTA, EOMI. NECK: No JVD present. CARDIAC: Regularly, irregular RESPIRATORY: CTAB, no increased effort of breathing. ABDOMEN: Soft, nontender, nondistended. EXTREMITIES: No lower extremity edema, peripheral pulses are 2+ bilaterally. NEURO: No focal deficits Visit Vitals BP (!) 112/48 (BP Location: Right arm, Patient Position: Lying) Pulse 57 Temp 36.8 ???C (98.2 ???F) (Temporal) Resp 21 Intake/Output Summary (Last 24 hours) at 07/21/2023 1141 Last data filed at 07/21/2023 1130 Gross per 24 hour Intake 1143.06 ml Output 10 ml Net 1133.06 ml Estimated body mass index is 19.01 kg/m??? as calculated from the following: Height as of this encounter: 1.702 m (5' 7 ). Weight as of this encounter: 55.1 kg (121 lb 6.4 oz). Active Inpatient Problems Principal Problem: Atrial fibrillation (CMS/HCC) Active Problems: Acute heart failure with preserved ejection fraction (CMS/HCC) Nonrheumatic aortic valve stenosis Assessment and Plan Severe Bioprosthetic Aortic valve stenosis Newly diagnosed Atrial fibrillation, CHADVASc = 5 CAD s/p CABG x5 with revesion in 2020 at [facility] (CH-LAD, rSVG- Diagonal, SVG-OM, SVG-PDA-PLV) Aortic stenosis s/p surgical AVR in 2020. Chronic HFpEF, NYHA Class II History of tricuspid valve repair Hypertension Hypothyroidism GERD Hyperlipidemia COPD Right/left heart catheterization done 07/20 and showed: 1) CH to LAD is patent. Other bypass grafts are not visualized 2) relatively normal RHC with mildly elevated wedge pressure Patient has complex anatomy given ascending aortic dissection repair with bioBentall surgical procedure in 2020. Coronary CTA if there is further need to assess coronary and bypass graft anatomy Aspirin, beta jose, and high intensity statin therapy for CAD if possible Med therapy for HFrEF as tolerated Continue Amiodarone and patient on heparin drip S/P DCCV, 1 shock was delivered at 360 J biphasic coronary graft angiography and aortic valve study today. Heparin Drip Continue GDMT : lipitor, coreg, lisinopril and aldactone Continue rest of home meds VTE Prophylaxis: IV heparin Scheduled Meds amiodarone, 400 mg, oral, BID with meals atorvastatin, 80 mg, oral, Nightly carvedilol, 12.5 mg, oral, BID cholecalciferol, 2,000 Units, oral, Daily umeclidinium-vilanteroL, 1 puff, inhalation, Daily And fluticasone, 1 puff, inhalation, Daily furosemide, 20 mg, oral, Daily lisinopril, 20 mg, oral, Daily pantoprazole, 40 mg, oral, Daily potassium chloride CR, 20 mEq, oral, Daily sertraline, 100 mg, oral, Daily spironolactone, 25 mg, oral, Daily heparin, 0-28 Units/kg/hr, Last Rate: 17 Units/kg/hr (07/21/23 0931) Pertinent Investigations Hematology: Results from last 7 days Lab Units 07/21/23 0350 07/20/23 0531 07/19/23 2137 WBC AUTO 10*3/uL -- 5.76 6.17 HEMOGLOBIN g/dL 9.5* 10.4* 11.3* HEMATOCRIT % 29.9* 32.3* 35.5* MCV fL -- 83.2 84.5 PLATELETS AUTO 10*3/uL -- 262 289 Chemistry: Results from last 7 days Lab Units 07/21/23 0350 07/19/237 SODIUM mmol/L 138 139 POTASSIUM mmol/L 3.8 3.5 CHLORIDE mmol/L 108* 104 CO2 mmol/L 23 28 BUN mg/dL 19 15 CREATININE mg/dL 0.68 0.66 GLUCOSE mg/dL 92 131* MAGNESIUM mg/dL 1.5* 1.6* CALCIUM mg/dL 9.7 10.7* Results from last 7 days Lab Units 07/21/23 0350 07/19/23 2137 AST U/L 21 23 ALT U/L 12 17 ALK PHOS U/L 97 132* BILIRUBIN TOTAL mg/dL 0.6 0.9 Historical Values: (Includes values prior to this admission) Lab Results Component Value Date TSH 0.06 (L) 07/19/2023 T3FREE 3.7 07/21/2023 FREET4 1.14 07/21/2023 No results found for: [id number], IRON, TIBC, C3, C4, MIRIAM, CANCA, ASO, PSA, CEA, CA125, CA199, AFP, CA153 Imaging ECG 12 lead Wide QRS rhythm Left anterior fascicular block Left ventricular hypertrophy with QRS widening and repolarization abnormality ( [place]is product ) Cannot rule out Septal infarct , age undetermined Abnormal ECG When compared with ECG of 20-JUL-2023 12:58, Wide QRS rhythm has replaced Sinus rhythm Discharge Planning Discharge Planning Has discharge transport been arranged?: Yes OT Discharge Recommendations: Home Signed Ulysses Fuller (more content not included)... [facility] 07-21-2023 Note Attestation signed by Kvng Bustamante MD at 07/21/2023 2:19 PM I personally saw and examined the patient on the same date of service as resident/fellow Lillian Schwarz . I discussed the findings and therapeutic plan with the resident/fellow Lillian Schwarz . I agree with the documentation, except for any edits/updates below. Teaching Physician's Revisions: as above Cardiology Progress Note Subjective Patient seen this morning, no chest pain sob, palpitations, over night patient was bradycardic and bb was kept at hold, this morning amio was discontinued for asymptomatic bradycardia. No N/V/D or other acute complaint. Subjective: Reason for Consult: Afib / Bioprosthetic aortic valve stenosis HPI: Darek Mejía is a 73 y.o. female with PMH of CAD s/p CABG x5 and revision CABG in 2020 (CH-LAD, rSVG- Diagonal, SVG-OM, SVG-PDA-PLV), HFpEF, valvular disease s/p bioprosthetic AVR, Hypertension who presented as a direct admit from our cardiology office, she denied any cardiac symptoms, Her EKG showed possible Afib with heart rate fluctuating in between 40s & 120s , and her Echo showed Evidence of severe bioprosthetic valve stenosis with DVI < 0.24. She presented here for evaluation of her valve and Afib. Objective Objective: Patient Vitals for the past 24 hrs: BP Temp Temp src Pulse Resp SpO2 Weight 07/21/23 0740 143/59 36.9 ???C (98.4 ???F) Temporal 51 20 92 % -- 07/21/23 0631 -- -- -- -- -- -- 55.1 kg (121 lb 6.4 oz) 07/21/23 0407 105/58 -- -- (!) 49 19 96 % -- 07/21/23 0128 (!) 101/46 -- -- (!) 37 25 96 % -- 07/21/23 0034 -- -- -- 58 22 95 % -- 07/21/23 0000 103/61 -- -- (!) 39 (!) 28 98 % -- 07/20/23 2200 106/52 -- -- 61 -- 96 % -- 07/20/23 2124 124/58 -- -- (!) 43 19 98 % -- 07/20/231999 (!) 112/48 -- -- 58 20 96 % -- 07/20/23 1944 102/50 -- -- 52 20 100 % -- 07/20/23 1900 124/62 -- -- 56 26 96 % -- 07/20/23 1830 119/62 -- -- 56 23 97 % -- 07/20/23 1800 108/57 -- -- 54 26 (!) 89 % -- 07/20/23 1730 117/53 -- -- 71 20 -- -- 07/20/23 1630 138/86 -- -- 73 -- 96 % -- 07/20/23 1600 141/78 -- -- 57 -- -- -- 07/20/23 1545 139/55 -- -- 63 -- 97 % -- 07/20/23 1537 -- -- -- -- -- 95 % -- 07/20/23 1530 138/69 -- -- 64 19 -- -- 07/20/23 1515 146/66 -- -- 58 22 92 % -- 07/20/23 1450 146/73 -- -- 55 15 96 % -- 07/20/23 1318 -- -- -- -- -- 94 % -- 07/20/23 1315 130/62 -- -- 55 18 94 % -- 07/20/23 1245 109/57 -- -- 53 25 98 % -- 07/20/23 1220 (!) 163/104 -- -- 109 22 99 % -- Physical Examination: GENERAL: AOx3, in no acute distress. HEAD: Atraumatic, normocephalic. EYES: JUSTA, EOMI. NECK: No JVD present. CARDIAC: RRR. No murmur, rubs, or gallops. RESPIRATORY: CTAB, no increased effort of breathing. ABDOMEN: Soft, nontender, nondistended. EXTREMITIES: No lower extremity edema, peripheral pulses are 2+ bilaterally. NEURO: No focal deficits Relevant Lab Results Encounter Date: 07/19/23 ECG 12 lead Result Value Ventricular Rate 48 QRS DURATION 124 QT Interval 462 QTC CALCULATION(BAZETT) 412 R-[place] -64 T Wave [place] -82 Impression Wide QRS rhythm Left anterior fascicular block Left ventricular hypertrophy with QRS widening and repolarization abnormality ( [place] product ) Cannot rule out Septal infarct , age undetermined Abnormal ECG When compared with ECG of 20-JUL-2023 12:58, Wide QRS rhythm has replaced Sinus rhythm Lab Results Component Value Date TROPONINI 0.04 07/21/2023 No echocardiogram results found for the past 12 months No nuclear medicine results found for the past 12 months Relevant Imaging Results ECG 12 lead Wide QRS rhythm Left anterior fascicular block Left ventricular hypertrophy with QRS widening and repolarization abnormality ( [place] product ) Cannot rule out Septal infarct , age undetermined Abnormal ECG When compared with ECG of 20-JUL-2023 12:58, Wide QRS rhythm has replaced Sinus rhythm Assessment: Severe Bioprosthetic Aortic valve stenosis s/p cardiac catheterization on 07/20/2023 showing CH to LAD is patent, other grafts are not visualized, RHC is fairly compensated with mildly elevated wedge pressure Newly diagnosed Atrial fibrillation, CHADVASc of 5 s/p AMITA Cardioversion Post cardioversion bradycardia on amio and bb CAD s/p CABG x5 with revesion in 2020 at [facility] (CH-LAD, rSVG- Diagonal, SVG-OM, SVG-PDA-PLV) Aortic stenosis s/p surgical AVR in 2020. chronic HFpEF, NYHA Class II History of tricuspid valve repair Hypertension controlled. Plan: Currently on Heparin GTT, will can switch to DOACs, Eliquis versus Xarelto whatever is covered by patient's insurance Amiodarone and beta jose at hold for bradycardia post cardioversion. Keep on monitoring in the setting of bradycardia with amiodar (more content not included)... [facility] 07-21-2023 Note Called re pt with br adycardia and frequent pvcs Recent labs reviewed will check free T4/T3 since tsh 0.06 consider readjusting doses check troponins hold coreg ekg staff to notify cardiology serum calcium high normal check vit d and repeat cmp [facility] 07-20-2023 Note Procedure Report PROCEDURE: synchronized cardioversion INDICATION: atrial fibrillation, persistent INSPECTOR WEIGHTS AND MEASURES: Gallo Knowles M.D. ANESTHESIA: conscious sedation TECHNIQUE: patient was brought to the cardiac catheterization lab in a fasting state. Informed consent was obtained. She was given fentanyl and versed for conscious sedation. A transesophageal echocardiogram was performed and there was no evidence of left atrial appendage thrombus. Please see the separate report for details. Next we proceeded with synchronized cardioversion. 1 shock was delivered at 360 J biphasic. She converted to normal sinus rhythm. There were no apparent complications. [facility] 07-20-2023 Note Hospital Medicine Daily Progress Note - 07/20/2023 12:37 PM; Room: 3137/3137-01 Admission: 07/19/2023 8:09 PM; Length of stay: 1 days THE HOSPITALIST TEAM PREFERS TO USE [employer] CHAT FOR COMMUNICATION 7AM-7PM. IF I DO NOT RESPOND WITHIN 15 MINUTES, PLEASE PAGE ME/CALL THROUGH THE INSPECTOR WEIGHTS AND MEASURES. FROM 7PM-7AM, PLEASE PAGE [phone](COVR) Code Status: Full Code Barriers to Discharge: Cardiology workup Expected Discharge Date: 2- days Discharge Destination: home Overview Patient is seen for evaluation and management of A. Fib and bioprosthetic AV stenosis. Subjective Seen today in her room, on 2 L NC, in no acute distress Physical Exam GENERAL: AOx3, in no acute distress. HEAD: Atraumatic, normocephalic. EYES: JUSTA, EOMI. NECK: No JVD present. CARDIAC: Regularly, irregular RESPIRATORY: CTAB, no increased effort of breathing. ABDOMEN: Soft, nontender, nondistended. EXTREMITIES: No lower extremity edema, peripheral pulses are 2+ bilaterally. NEURO: No focal deficits Visit Vitals BP (!) 163/104 Pulse 109 Temp 37 ???C (98.6 ???F) (Temporal) Resp 22 Intake/Output Summary (Last 24 hours) at 07/20/2023 1237 Last data filed at 07/20/2023 0644 Gross per 24 hour Intake 68.47 ml Output -- Net 68.47 ml Estimated body mass index is 18.85 kg/m??? as calculated from the following: Height as of this encounter: 1.702 m (5' 7 ). Weight as of this encounter: 54.6 kg (120 lb 5.9 oz). Active Inpatient Problems Principal Problem: Atrial fibrillation (CMS/HCC) Active Problems: Acute heart failure with preserved ejection fraction (CMS/HCC) Nonrheumatic aortic valve stenosis Assessment and Plan Severe Bioprosthetic Aortic valve stenosis Newly diagnosed Atrial fibrillation, CHADVASc = 5 CAD s/p CABG x5 with revesion in 2020 at [facility] (CH-LAD, rSVG- Diagonal, SVG-OM, SVG-PDA-PLV) Aortic stenosis s/p surgical AVR in 2020. Chronic HFpEF, NYHA Class II History of tricuspid valve repair Hypertension Hypothyroidism GERD Hyperlipidemia COPD Plan for right/left heart catheterization coronary graft angiography and aortic valve study today. Heparin Drip Continue GDMT : lipitor, coreg, lisinopril and aldactone Continue rest of home meds VTE Prophylaxis: IV heparin Scheduled Meds atorvastatin, 80 mg, oral, Nightly carvedilol, 12.5 mg, oral, BID cholecalciferol, 2,000 Units, oral, Daily umeclidinium-vilanteroL, 1 puff, inhalation, Daily And fluticasone, 1 puff, inhalation, Daily furosemide, 20 mg, oral, Daily levothyroxine, 100 mcg, oral, Daily before breakfast liothyronine, 25 mcg, oral, Daily before breakfast lisinopril, 20 mg, oral, Daily pantoprazole, 40 mg, oral, Daily potassium chloride CR, 20 mEq, oral, Daily sertraline, 100 mg, oral, Daily spironolactone, 25 mg, oral, Daily heparin, 0-28 Units/kg/hr, Last Rate: 17 Units/kg/hr (07/20/23 0741) sodium chloride, , Last Rate: 50 mL/hr (07/20/23 1208) Pertinent Investigations Hematology: Results from last 7 days Lab Units 07/20/23 0531 07/19/23 2137 WBC AUTO 10*3/uL 5.76 6.17 HEMOGLOBIN g/dL 10.4* 11.3* HEMATOCRIT % 32.3* 35.5* MCV fL 83.2 84.5 PLATELETS AUTO 10*3/uL 262 289 Chemistry: Results from last 7 days Lab Units 07/19/23 2137 SODIUM mmol/L 139 POTASSIUM mmol/L 3.5 CHLORIDE mmol/L 104 CO2 mmol/L 28 BUN mg/dL 15 CREATININE mg/dL 0.66 GLUCOSE mg/dL 131* MAGNESIUM mg/dL 1.6* CALCIUM mg/dL 10.7* Results from last 7 days Lab Units 07/19/23 2137 AST U/L 23 ALT U/L 17 ALK PHOS U/L 132* BILIRUBIN TOTAL mg/dL 0.9 Historical Values: (Includes values prior to this admission) Lab Results Component Value Date TSH 0.06 (L) 07/19/2023 FREET4 1.31 07/19/2023 No results found for: [id number], IRON, TIBC, C3, C4, MIRIAM, CANCA, ASO, PSA, CEA, CA125, CA199, AFP, CA153 Imaging ECG 12 lead Atrial fibrillation Left axis deviation Left ventricular hypertrophy with QRS widening and repolarization abnormality ( [place] product ) Cannot rule out Anteroseptal infarct , age undetermined Abnormal ECG When compared with ECG of 04-JAN-2002 06:38, Afib has replaced sinus Minimal criteria for Anteroseptal infarct are now Present Minimal criteria for Inferior infarct are no longer Present Confirmed by David Carias ([id number]) on 07/20/2023 12:16:59 PM XR chest 1 view Narrative: XR CHEST 1 VIEW 07/19/2023 10:34 PM CLINICAL INDICATIONS: Cough COMPARISON: None FINDINGS: Portable AP upright view of the chest. Cardiac silhouette is moderately enlarged with prosthetic aortic valve and sternotomy wires seen as well as mediastinal clips. The lungs are hyperinflated with low flat diaphragm and prominent hilar shadows suggesting COPD. Calcified granuloma is seen in the right lower lobe. Trachea is in the midline. Bony skeleton appears intact with incidental epicardial pacer wires are seen at the lower chest and metallic clips in the epigastric (more content not included)... [facility] 07-20-2023 Note Clinical Nutrition A ssessment Name: Darek Mejía Date: 1950 Date of Visit: 07/20/23 Reason for assessment: high risk Information obtained from: patient, medical record, and nursing Medical History No chief complaint on file. Past Medical History: Diagnosis Date Coronary artery disease Heart valve disease Hypertension Past Surgical History: Procedure Laterality Date CARDIAC CATHETERIZATION CERVICAL SPINE SURGERY CHOLECYSTECTOMY CORONARY ARTERY BYPASS GRAFT HYSTERECTOMY MASTECTOMY Current Outpatient Medications Medication Instructions aspirin 81 mg, oral, Once Daily atorvastatin (Lipitor) 80 mg tablet TAKE 1 TABLET BY MOUTH EVERY DAY carvedilol (COREG) 12.5 mg, oral, 2 times daily RT cholecalciferol, vitamin D3, 50 mcg (2,000 unit) capsule oral, Daily furosemide (LASIX) 20 mg, oral, Daily levothyroxine (SYNTHROID, LEVOXYL) 100 mcg, oral, Daily liothyronine (CYTOMEL) 25 mcg, oral, Daily lisinopril 20 mg, oral, Daily nitroglycerin (Nitrostat) 0.4 mg SL tablet Sublingual pantoprazole (PROTONIX) 40 mg, oral, Daily potassium chloride CR (Klor-Con) 10 mEq ER tablet 10 mEq, oral, Every other day sertraline (ZOLOFT) 100 mg, oral, Daily spironolactone (ALDACTONE) 25 mg, oral, Daily tiZANidine (ZANAFLEX) 4 mg, oral, 3 times daily RT Trelegy Ellipta 100-62.5-25 mcg blister with device No dose, route, or frequency recorded. Allergies Allergen Reactions Tetanus Vaccines And Toxoid Other and Swelling Other reaction(s): Other: See Comments CRITICAL REACTION Other reaction(s): Other: See Comments CRITICAL REACTION CRITICAL REACTION Allopurinol Other Spironolactone Nausea And Vomiting Tetanus And Diphther. Tox (Pf) Other Isosorbide Dinitrate Nausea And Vomiting Other reaction(s): Nausea And Vomiting Severe head ache Severe head ache Other reaction(s): Nausea And Vomiting Severe head ache Nutrition Problems: Cognition: A&Ox4 Skin Integrity: intact Other: +smoker, down to 5 cigarettes/day Results from last 7 days Lab Units 07/20/23 0531 07/19/23 2137 GLUCOSE mg/dL -- 131* BUN mg/dL -- 15 CREATININE mg/dL -- 0.66 SODIUM mmol/L -- 139 POTASSIUM mmol/L -- 3.5 MAGNESIUM mg/dL -- 1.6* HEMOGLOBIN g/dL 10.4* 11.3* WBC AUTO 10*3/uL 5.76 6.17 I/O: Intake/Output Summary (Last 24 hours) at 07/20/2023 1009 Last data filed at 07/20/2023 0644 Gross per 24 hour Intake 68.47 ml Output -- Net 68.47 ml Current Medications: atorvastatin, 80 mg, oral, Nightly carvedilol, 12.5 mg, oral, BID cholecalciferol, 2,000 Units, oral, Daily umeclidinium-vilanteroL, 1 puff, inhalation, Daily And fluticasone, 1 puff, inhalation, Daily furosemide, 20 mg, oral, Daily levothyroxine, 100 mcg, oral, Daily before breakfast liothyronine, 25 mcg, oral, Daily before breakfast lisinopril, 20 mg, oral, Daily pantoprazole, 40 mg, oral, Daily potassium chloride CR, 20 mEq, oral, Daily sertraline, 100 mg, oral, Daily spironolactone, 25 mg, oral, Daily Anthropometrics: Height: 170.2 cm (5' 7 ) Weight: 54.6 kg (120 lb 5.9 oz) Body mass index is 18.85 kg/m???. Wt history:-5.3 kg in 3 months Wt Readings from Last 7 Encounters: 07/19/23 54.6 kg (120 lb 5.9 oz) 07/19/23 54.4 kg (120 lb) 04/23/23 59.9 kg (132 lb) 01/31/23 58.5 kg (129 lb) 12/21/22 63 kg (139 lb) 08/11/22 61.7 kg (136 lb) 02/10/22 62.1 kg (137 lb) IBW: 61.4 kg Weight change: -9% Severity of weight change: severe Nutrition Assessment: Diet History: from home. Needs based on: actual body weight Calorie needs: 9834-4308 kcals/day based on Equation: 25-30 kcal/kg Protein needs: 65-82 g/day based on 1.2-1.5 g/kg -underweight. Lean body mass preservation Dietary Orders (From admission, onward) Start Ordered 07/20/23 07 Diet NPO Diet effective now Comments: Sips with medications Question: Reason for NPO: Answer: Operation/Procedure 07/20/23718 Nutrition Risk: High Nutrition Diagnosis: underweight related to chronic COPD as evidenced by BMI 19 Nutrition Recommendations: Resume HH diet as medically appropriate. Encourage small/frequent meals for wt management. Pt OOR majority of day, unable to obtain history and etiology of wt loss. Monitor on follow up. Boost Plus BID Continue to monitor. Goals: Nutrition Goals: intake > 75% meals and intake > 75% supplements Gavin Washington RD (Please reach out with questions and contact the dietitian via [employer] chat 8A-4P Sunday-Sunday. Or call the dietitian's office at extension [phone]. For weekends/holidays, the dietitian's can be reached by paging [phone] from 9A-3P. Unable to be reached via [employer] chat on Sunday & hols.) [facility] 07-20-2023 Note Occupational Therapy Occupational Therapy Evaluation Patient Name: Darek Mejía : 1950 Today's Date: 07/20/2023 Time In: 734 Time Out: 752 Darek Mejía is a 73 y.o. female with PMH of CAD s/p CABG x5 and revision CABG in 2019 (CH-LAD, rSVG- Diagonal, SVG-OM, SVG-PDA-PLV), HFpEF, valvular disease s/p bioprosthetic AVR, Hypertension who presented as a direct admit from our cardiology office, she denied any cardiac symptoms, Her EKG showed possible Afib with heart rate fluctuating in between 40s & 120s , and her Echo showed Evidence of severe bioprosthetic valve stenosis with DVI < 0.24. She presented here for evaluation of her valve and Afib. Severe Bioprosthetic Aortic valve stenosis Newly diagnosed Atrial fibrillation, CHADVASc = General Subjective: friendly and coopeative, reports generalized weakness and sob , nsg aware Patient Active Problem List Diagnosis Atelectasis Chronic systolic heart failure (CMS/HCC) Combined forms of age-related cataract of both eyes Coronary artery disease involving coronary bypass graft of [place] heart with angina pectoris (CMS/HCC) Dyslipidemia Encounter for support and coordination of transition of care Hx of CABG Hypervolemia Ischemic heart disease, chronic Macular hole of right eye Mild left ventricular systolic dysfunction Moderate protein-calorie malnutrition (CMS/HCC) Nonrheumatic aortic valve insufficiency Pleural effusion Benign hypertensive cardiomyopathy with heart failure (CMS/HCC) Smoking addiction Bradycardia CHF (congestive heart failure) (CMS/HCC) GERD (gastroesophageal reflux disease) Other emphysema (CMS/HCC) Atrial fibrillation (CMS/HCC) Acute heart failure with preserved ejection fraction (CMS/HCC) Nonrheumatic aortic valve stenosis Past Medical History: Diagnosis Date Coronary artery disease Heart valve disease Hypertension Past Surgical History: Procedure Laterality Date CARDIAC CATHETERIZATION CERVICAL SPINE SURGERY CHOLECYSTECTOMY CORONARY ARTERY BYPASS GRAFT HYSTERECTOMY MASTECTOMY Precautions Precautions Medical Precautions: fall risk Pain Pain Assessment Pain Assessment: No/denies pain Cognition Cognition Overall Cognitive Status: Within Functional Limits General Assessment General Assessment Hearing: (wfl) Hand Dominance: Right Home Living Home Living Type of Home: House Lives With: Significant other Home Adaptive Equipment: (built in shower chair) Home Layout: One level Home Access: Stairs to enter without rails (2) Bathroom Shower/Tub: Walk-in shower Prior Level of Function Prior Function Level of [place]: Independent with ADLs and functional transfers, Independent with homemaking with ambulation (drives) Prior Functional Mobility: Independent without device Prior IADLs IADL History Homemaking Responsibilities: Yes Dynamic Sitting Balance Dynamic Sitting Balance Dynamic Sitting Balance-Level of Assistance: Independent Static Standing Balance Static Standing Balance Static Standing-Level of Assistance: Close supervision ADL ADL UE Dressing Assistance: Independent LE Dressing Assistance: Stand by Toileting Assistance with Device: Stand by Transfers Transfers Transfer: (indep supine to sit EOB, SBA:: sit to stand,15 feet to toilet, sit/stand, sink side standing 15 feet to chair , standing two sets three minutes) Objective General Assessments Activity Tolerance Endurance: Stage II Vision - Basic Assessment Current Vision: No visual deficits Sensation Light Touch: No apparent deficits Coordination Movements are Fluid and Coordinated: Yes Extremity Assessments RUE Assessment RUE Assessment: Exceptions to WFL LUE Assessment LUE Assessment: (reports no issues with UB / MMT deferred) Outcome Assessments AM-PAC 6 Clicks Putting on and taking off regular lower body clothing?: A Little (Min Assist/Contact Guard/Supervision) Bathing(Including washing,rinsing,drying)?: A Little (Min Assist/Contact Guard/Supervision) Toileting, which includes using the toilet,bedpan,or urinal?: A Little (Min Assist/Contact Guard/Supervision) Putting on and taking off regular upper body clothing?: None (Independent) Taking care of personal grooming such as brushing teeth?: None (Independent) Eating meals?: None (Independent) Total Score OT [facility]: 21 Assessment/Plan OT Assessment OT Impairments: Decreased ADL status, Decreased endurance, Decreased functional mobility OT Assessment/TANK PUMPER Summary: (needs skilled OT for generalized weakness and fatigue) Prognosis: Good Evaluation/Treatment Tolerance: Patient limited by fatigue Medical Staff Made Aware: Yes OT Education/Comments: (ws/ec/pacing , ae/dme that may improve endurance for adls at home , all with good verbal return) Plan Level of assist: 1 assist Treatment Interventions: ADL retraining, Fu (more content not included)... [facility] 07-20-2023 Note Hospital Medicine History and Physical 07/19/2023 10:58 PM THE HOSPITALIST TEAM PREFERS TO USE [employer] CHAT FOR COMMUNICATION 7AM-7PM. IF I DO NOT RESPOND WITHIN 15 MINUTES, PLEASE PAGE ME/CALL THROUGH THE INSPECTOR WEIGHTS AND MEASURES. FROM 7PM-7AM, PLEASE PAGE [phone](COVR) Chief Complaint No chief complaint on file. History of Present Illness Darek Mejía is an 73 y.o. female admitted from home per recommendation by her straight knife cutter machine who saw her in the office and diagnosed with new onset atrial fibrillation . Pt has h/o bioprosthetic av valve and echo done revealed sever stenosis of bioprosthetic AV, she has h/o htn and TAA repair as well. She continues to smoke now she has cut down to 5 cigarettes a day . She denies any symptoms Review of System and Physical Exam Heart Rate: [108-113] 108 Resp: [20] 20 BP: (143-151)/(88-99) 151/99 Physical Exam Vitals reviewed. Constitutional: Appearance: Normal appearance. She is normal weight. HENT: Head: Normocephalic and atraumatic. Right Ear: Tympanic membrane, ear canal and external ear normal. Left Ear: Tympanic membrane, ear canal and external ear normal. Nose: Nose normal. Mouth/Throat: Mouth: Mucous membranes are moist. Pharynx: Oropharynx is clear. Eyes: Extraocular Movements: Extraocular movements intact. Pupils: Pupils are equal, round, and reactive to light. Cardiovascular: Rate and Rhythm: Normal rate. Rhythm irregular. Heart sounds: Murmur heard. Pulmonary: Breath sounds: Normal breath sounds. Abdominal: General: Abdomen is flat. Bowel sounds are normal. Palpations: Abdomen is soft. Musculoskeletal: General: No swelling. Normal range of motion. Cervical back: Normal range of motion and neck supple. Skin: General: Skin is warm. Capillary Refill: Capillary refill takes 2 to 3 seconds. Neurological: General: No focal deficit present. Mental Status: She is alert and oriented to person, place, and time. Psychiatric: Mood and Affect: Mood normal. Behavior: Behavior normal. Review of Systems Constitutional: Negative for activity change, appetite change, chills, diaphoresis, fatigue, fever and unexpected weight change. HENT: Negative for congestion, ear pain, facial swelling, hearing loss, nosebleeds, postnasal drip, sore throat and trouble swallowing. Eyes: Negative for photophobia, discharge, redness and visual disturbance. Respiratory: Negative for cough, choking, chest tightness, shortness of breath, wheezing and stridor. Cardiovascular: Negative for chest pain, palpitations and leg swelling. Gastrointestinal: Negative for abdominal pain, blood in stool, constipation, diarrhea, nausea and vomiting. Endocrine: Negative. Genitourinary: Negative. Musculoskeletal: Positive for back pain. Negative for arthralgias, gait problem, joint swelling, myalgias and neck pain. Skin: Negative. Allergic/Immunologic: Negative. Neurological: Negative. Hematological: Negative. Psychiatric/Behavioral: Negative. Problem List Patient Active Problem List Diagnosis Date Noted Atrial fibrillation ([facility]) 07/19/2023 GERD (gastroesophageal reflux disease) 10/30/2022 Other emphysema ([facility]) 10/30/2022 Combined forms of age-related cataract of both eyes 04/13/2021 Pleural effusion 01/19/2020 Encounter for support and coordination of transition of care 01/15/2020 Moderate protein-calorie malnutrition ([facility]) 01/11/2020 Hx of CABG 01/10/2020 Nonrheumatic aortic valve insufficiency 01/09/2020 Dyslipidemia 03/25/2019 Macular hole of right eye 10/23/2017 Ischemic heart disease, chronic 08/24/2015 Chronic systolic heart failure ([facility]) 07/24/2015 CHF (congestive heart failure) ([facility]) 07/24/2015 Hypervolemia 07/23/2015 Atelectasis 07/21/2015 Coronary artery disease involving coronary bypass graft of [place] heart with angina pectoris [facility] [facility]) 07/19/2015 Mild left ventricular systolic dysfunction 06/22/2015 Benign hypertensive cardiomyopathy with heart failure ([facility]) 06/22/2015 Smoking addiction 06/22/2015 Bradycardia 08/11/2022 Assessment and Plan New onset atrial fibrillation H/o bioprosthetic aortic valve repair with recent echo showing showing Bioprosthetic aortic valve stenosis H/o htn H/o cad s/p CABG and revision CABG Recent fall with pelvic bone fracture Hypothyroidism GERD Hyperlipidemia codp Tobacco dependence Cardiology follow up star iv heparin telemetry check CMP mag TSH rate control Continue antihypertensive meds On thyroid supplement continue statin asa stable on LABA Counseling re tobacco abstinence and nicotine replacement offered but pt refused Code status full code VTE Prophylaxis: IV heparin ----- Focus of this inpatient stay will remain on problems that need acute care setting for care. We will review available studies and will order additional labs, imaging and other studies as appropriate. As needed medicines are ordered as approp (more content not included)... [facility] 07-19-2023 Note [facility] Cardiology Clinic Note Chief Complaint: Patient here for follow up echo and ECG done 2 weeks ago. Says HR was in the 40's but has been elevated ever since she had her echo. Denies chest pain, palpitations, and lightheadedness. HPI: Darek Mejía is a 73 y.o. female With a history of coronary artery disease, prior bypass surgery, hypertension and heart failure here in routine follow-up She unfortunately suffered an accidental fall and this resulted in a fractured pelvis. She is in some degree of discomfort. Thankfully, she denies preceding cardiac symptoms. She currently has no chest pain. Her shortness of breath is stable. Update 07/19/2023: The patient probably had a pneumonia in June while she was traveling. She had fevers, chills, cough and expectoration. For the past several weeks, she has noticed worsening shortness of breath. She denies chest pain. She denies palpitations, lightheadedness or dizziness. Heart rates have been fluctuating between the 40s to 120s. Cardiology ROS: Review of Systems Cardiovascular: Positive for dyspnea on exertion. Hematologic/Lymphatic: Bruises/bleeds easily. Musculoskeletal: Positive for arthritis, back pain, joint pain and myalgias. All other systems reviewed and are negative. Past Medical History She has a past medical history of Coronary artery disease, Heart valve disease, and Hypertension. Surgical History She has a past surgical history that includes Cardiac catheterization; Coronary artery bypass graft; Cholecystectomy; Cervical spine surgery; Hysterectomy; and Mastectomy. Social History She reports that she has been smoking cigarettes. She has been smoking an average of .5 packs per day. She has never used smokeless tobacco. She reports current alcohol use. No history on file for drug use. Family History Family History Problem Relation Name Age of Onset Coronary artery disease Father Diabetes Father Allergies Tetanus vaccines and toxoid, Allopurinol, Spironolactone, Tetanus and diphther. tox (pf), and Isosorbide dinitrate Medications Current Outpatient Medications: aspirin 81 mg chewable tablet, Chew 1 tablet (81 mg) once daily as directed., Disp: 90 tablet, Rfl: 3 atorvastatin (Lipitor) 80 mg tablet, TAKE 1 TABLET BY MOUTH EVERY DAY, Disp: 90 tablet, Rfl: 3 carvedilol (Coreg) 12.5 mg tablet, Take 1 tablet (12.5 mg) by mouth in the morning and at bedtime., Disp: 180 tablet, Rfl: 3 cholecalciferol, vitamin D3, 50 mcg (2,000 unit) capsule, Take by mouth in the morning., Disp: , Rfl: furosemide (Lasix) 20 mg tablet, Take 1 tablet (20 mg) by mouth in the morning., Disp: 90 tablet, Rfl: 2 levothyroxine (Synthroid, Levoxyl) 100 mcg tablet, Take 100 mcg by mouth in the morning., Disp: , Rfl: liothyronine (Cytomel) 25 mcg tablet, Take 25 mcg by mouth in the morning., Disp: , Rfl: lisinopril 20 mg tablet, Take 1 tablet (20 mg) by mouth in the morning., Disp: 90 tablet, Rfl: 3 nitroglycerin (Nitrostat) 0.4 mg SL tablet, Sublingual, Disp: , Rfl: pantoprazole (ProtoNix) 40 mg EC tablet, Take 40 mg by mouth in the morning., Disp: , Rfl: potassium chloride CR (Klor-Con) 10 mEq ER tablet, Take 10 mEq by mouth every other day., Disp: , Rfl: sertraline (Zoloft) 100 mg tablet, Take 100 mg by mouth in the morning., Disp: , Rfl: spironolactone (Aldactone) 25 mg tablet, Take 1 tablet (25 mg) by mouth in the morning., Disp: 90 tablet, Rfl: 3 tiZANidine (Zanaflex) 4 mg tablet, Take 4 mg by mouth in the morning, afternoon, and at bedtime., Disp: , Rfl: [place] Ellipta 100-62.5-25 mcg blister with device, , Disp: , Rfl: Last Recorded Vitals BP 143/88 (BP Location: Left arm, Patient Position: Sitting) Pulse (!) 113 Ht 1.727 m (5' 8 ) Wt 54.4 kg (120 lb) SpO2 94% BMI 18.25 kg/m??? Physical Examination: GENERAL: alert and oriented x3, well developed, in no acute distress. HEAD: atraumatic, normocephalic. EYES: JUSTA, EOMI. NECK: trachea midline, no JVD present, no carotid bruits present. CARDIAC: S1, S2 present. RRR. No murmur, rubs, or gallops. RESPIRATORY: CTAB, no increased effort of breathing, no rales, rhonchi, or wheezing. ABDOMEN: soft, nontender, nondistended. EXTREMITIES: no lower extremity edema, peripheral pulses are 2+ bilaterally. No rash/skin discoloration present. NEURO: strength/sensation equal and symmetric in bilateral upper and lower extremities. PSYCH: appropriate mood, affect, and judgement. Investigations: Echocardiogram 03/15/2021 Normal global left ventricular systolic function, bioprosthetic valve in the aortic position with normal function. Mild mitral and tricuspid regurgitation. Normal right-sided pressures. Lexiscan stress test 03/16/2021 A small area of very mild decreased but reversible defect in the inferior lateral wall involving the mid and distal aspect. This does not appear significantly changed. Normal wall motion with ejection (more content not included)... [facility] 04-23-2023 Note [facility] Cardiology Clinic Note Chief Complaint: Patient here for 3 mo follow up hypertension, bradycardia, and chronic systolic heart failure, and CAD. She was unable to tolerate spironolactone. Fell and broke her pelvis a few weeks ago. Denies chest pain, worsening ANGEL, and LE edema. HPI: Darek Mejía is a 72 y.o. female With a history of coronary artery disease, prior bypass surgery, hypertension and heart failure here in routine follow-up She unfortunately suffered an accidental fall and this resulted in a fractured pelvis. She is in some degree of discomfort. Thankfully, she denies preceding cardiac symptoms. She currently has no chest pain. Her shortness of breath is stable. Cardiology ROS: Review of Systems Cardiovascular: Positive for dyspnea on exertion. Hematologic/Lymphatic: Bruises/bleeds easily. Musculoskeletal: Positive for arthritis, back pain and joint pain. All other systems reviewed and are negative. Past Medical History She has a past medical history of Coronary artery disease, Heart valve disease, and Hypertension. Surgical History She has a past surgical history that includes Cardiac catheterization; Coronary artery bypass graft; Cholecystectomy; Cervical spine surgery; Hysterectomy; and Mastectomy. Social History She reports that she has been smoking cigarettes. She has been smoking an average of .5 packs per day. She has never used smokeless tobacco. She reports current alcohol use. No history on file for drug use. Family History Family History Problem Relation Name Age of Onset Coronary artery disease Father Diabetes Father Allergies Tetanus vaccines and toxoid, Allopurinol, Tetanus and diphther. tox (pf), and Isosorbide dinitrate Medications Current Outpatient Medications: aspirin 81 mg chewable tablet, Chew 1 tablet (81 mg) once daily as directed., Disp: 90 tablet, Rfl: 3 atorvastatin (Lipitor) 80 mg tablet, TAKE 1 TABLET BY MOUTH EVERY DAY, Disp: 90 tablet, Rfl: 3 carvedilol (Coreg) 12.5 mg tablet, Take 1 tablet (12.5 mg) by mouth in the morning and at bedtime., Disp: 180 tablet, Rfl: 3 cholecalciferol, vitamin D3, 50 mcg (2,000 unit) capsule, Take by mouth in the morning., Disp: , Rfl: furosemide (Lasix) 20 mg tablet, Take 1 tablet (20 mg) by mouth in the morning., Disp: 90 tablet, Rfl: 2 levothyroxine (Synthroid, Levoxyl) 100 mcg tablet, Take 100 mcg by mouth in the morning., Disp: , Rfl: lisinopril 20 mg tablet, Take 1 tablet (20 mg) by mouth in the morning., Disp: 90 tablet, Rfl: 3 nitroglycerin (Nitrostat) 0.4 mg SL tablet, Sublingual, Disp: , Rfl: pantoprazole (ProtoNix) 40 mg EC tablet, Take 40 mg by mouth in the morning., Disp: , Rfl: potassium chloride CR (Klor-Con) 10 mEq ER tablet, Take 10 mEq by mouth every other day., Disp: , Rfl: sertraline (Zoloft) 100 mg tablet, Take 100 mg by mouth in the morning., Disp: , Rfl: spironolactone (Aldactone) 25 mg tablet, Take 1 tablet (25 mg) by mouth in the morning., Disp: 90 tablet, Rfl: 3 tiZANidine (Zanaflex) 4 mg tablet, Take 4 mg by mouth in the morning, afternoon, and at bedtime., Disp: , Rfl: Trelegy Ellipta 100-62.5-25 mcg blister with device, , Disp: , Rfl: Last Recorded Vitals BP 138/50 (BP Location: Left arm, Patient Position: Sitting) Pulse 61 Ht 1.727 m (5' 8 ) Wt 59.9 kg (132 lb) SpO2 96% BMI 20.07 kg/m??? Physical Examination: GENERAL: alert and oriented x3, well developed, in no acute distress. HEAD: atraumatic, normocephalic. EYES: JUSTA, EOMI. NECK: trachea midline, no JVD present, no carotid bruits present. CARDIAC: S1, S2 present. RRR. No murmur, rubs, or gallops. RESPIRATORY: CTAB, no increased effort of breathing, no rales, rhonchi, or wheezing. ABDOMEN: soft, nontender, nondistended. EXTREMITIES: no lower extremity edema, peripheral pulses are 2+ bilaterally. No rash/skin discoloration present. NEURO: strength/sensation equal and symmetric in bilateral upper and lower extremities. PSYCH: appropriate mood, affect, and judgement. Investigations: Echocardiogram 03/15/2021 Normal global left ventricular systolic function, bioprosthetic valve in the aortic position with normal function. Mild mitral and tricuspid regurgitation. Normal right-sided pressures. Lexiscan stress test 03/16/2021 A small area of very mild decreased but reversible defect in the inferior lateral wall involving the mid and distal aspect. This does not appear significantly changed. Normal wall motion with ejection fraction. Pulmonary function test 03/15/2021: Severe obstructive pattern on spirometry with a positive bronchodilator response. Very severe diffusion impairment. Overall studies compatible with severe emphysema with a bronchodilator response. BNP 06/16/2021 significantly elevated, serum creatinine 0.81 12-lead EKG 04/23/2023 Sinus rhythm with frequent premature ventricular contractions in a pattern of ventricular bigeminy. (more content not included)... [facility] 01-31-2023 Note Continue GDMT- ASA, lipitor, coreg continue risk factor modifications- heart healthy diet, regular exercise as tolerated and continue all medications. [facility] 01-31-2023 Note [facility] II- currently e uvolemic without excaerbation Continue GDMT- ASA, lipitor, coreg, lisinopril and aldatone Diuretic therapy- lasix every other day Monitor daily weights, I&O, fluid restriction 1.5-2L/day, renal function and electrolytes- [facility] 01-31-2023 Note Stable- continue all meds [facility] 01-31-2023 Note Review of B/P log an d her HTN is much better controlled with addition of aldactone. K+ level remains normal and renal function is stable for her. Denied lightheadedness/dizziness Continue aldactone, lisinopril, coreg and lasix QOD [facility] 01-31-2023 Note Patient here for 2 m o follow up hypertension. She was started on spironolactone on 01/11. Had BMP last week. Down 10# from last apt on 12/21/2022. She was having palpitations last night, which she usually doesn't have. Denies chest pain. Review of Systems Cardiovascular: Positive for dyspnea on exertion. Hematologic/Lymphatic: Bruises/bleeds easily. Musculoskeletal: Positive for arthritis, back pain and joint pain. All other systems reviewed and are negative. [facility] 01-31-2023 Note [facility] PRO[facility] ESS NOTE HPI: Darek Mejía is a 72 y.o. female here for F/U for HTN after starting aldactone at last visit. HPI Review of Systems Visit Vitals BP 97/66 (BP Location: Left arm, Patient Position: Sitting) Pulse 93 Ht 1.727 m (5' 8 ) Wt 58.5 kg (129 lb) SpO2 96% BMI 19.61 kg/m??? Smoking Status Every Day BSA 1.68 m??? Allergies Allergen Reactions Tetanus Vaccines And Toxoid Other and Swelling Other reaction(s): Other: See Comments CRITICAL REACTION Other reaction(s): Other: See Comments CRITICAL REACTION CRITICAL REACTION Allopurinol Other Tetanus And Diphther. Tox (Pf) Other Isosorbide Dinitrate Nausea And Vomiting Other reaction(s): Nausea And Vomiting Severe head ache Severe head ache Other reaction(s): Nausea And Vomiting Severe head ache Medications: Current Outpatient Medications on File Prior to Visit Medication Sig Dispense Refill aspirin 81 mg chewable tablet Chew 1 tablet (81 mg) once daily as directed. 90 tablet 3 atorvastatin (Lipitor) 80 mg tablet atorvastatin 80 mg tablet TAKE 1 TABLET BY MOUTH EVERY DAY carvedilol (Coreg) 12.5 mg tablet Take 1 tablet (12.5 mg) by mouth in the morning and at bedtime. 180 tablet 3 cholecalciferol, vitamin D3, 50 mcg (2,000 unit) capsule Take by mouth in the morning. furosemide (Lasix) 20 mg tablet TAKE 1 TABLET BY MOUTH EVERY DAY (Patient taking differently: Take 20 mg by mouth every other day.) 90 tablet 2 levothyroxine (Synthroid, Levoxyl) 100 mcg tablet Take 100 mcg by mouth in the morning. lisinopril 20 mg tablet Take 20 mg by mouth in the morning. nitroglycerin (Nitrostat) 0.4 mg SL tablet Sublingual pantoprazole (ProtoNix) 40 mg EC tablet Take 40 mg by mouth in the morning. potassium chloride CR (Klor-Con) 10 mEq ER tablet Take 10 mEq by mouth every other day. sertraline (Zoloft) 100 mg tablet Take 100 mg by mouth in the morning. spironolactone (Aldactone) 25 mg tablet Take 1 tablet (25 mg) by mouth in the morning. 90 tablet 3 tiZANidine (Zanaflex) 4 mg tablet Take 4 mg by mouth in the morning, afternoon, and at bedtime. Trelegy Ellipta 100-62.5-25 mcg blister with device No current facility-administered medications on file prior to visit. Physical Exam: Constitutional: Appearance: Normal appearance. Without apparent distress, thin appearing, chronically ill HENT: Head: Normocephalic and atraumatic. Nose: Nose normal. Mouth/Throat: Mouth: Mucous membranes are moist. Eyes: Extraocular Movements: Extraocular movements intact. Conjunctiva/sclera: Conjunctivae normal. Neck: Vascular: No JVD. Cardiovascular: Rate and Rhythm: Normal rate and regular rhythm. Pulses: Dorsalis pedis pulses are 3 on the right side and 3on the left side. Posterior tibial pulses are 3 on the right side and 3 on the left side. Heart sounds: Normal heart sounds, S1 normal and S2 normal. Pulmonary: Effort: Pulmonary effort is normal. Breath sounds: Normal breath sounds. Abdominal: General: Bowel sounds are normal. Palpations: Abdomen is soft. Musculoskeletal: General: Normal range of motion. Cervical back: Normal range of motion. Right lower leg: No edema. Left lower leg: No edema. Skin: General: Skin is warm and dry. Capillary Refill: Capillary refill takes less than 2 seconds. Neurological: General: No focal deficit present. Mental Status: She is alert and oriented to person, place, and time. Psychiatric: Mood and Affect: Mood normal. Behavior: Behavior normal. Thought Content: Thought content normal. Judgment: Judgment normal. Labs: Last lab values have been reviewed CV Testin08/16/22 Echo No echocardiogram results found for the past 12 months Assessment/Plan: Benign hypertensive cardiomyopathy with heart failure (CMS/HCC) Review of B/P log and her HTN is much better controlled with addition of aldactone. K+ level remains normal and renal function is stable for her. Denied lightheadedness/dizziness Continue aldactone, lisinopril, coreg and lasix QOD Bradycardia Stable- continue all meds Chronic systolic heart failure (CMS/HCC) [facility] II- currently euvolemic without excaerbation Continue GDMT- ASA, lipitor, coreg, lisinopril and aldatone Diuretic therapy- lasix every other day Monitor daily weights, I&O, fluid restriction 1.5-2L/day, renal function and electrolytes- Coronary artery disease involving coronary bypass graft of [place] heart with angina pectoris (CMS/HCC) Continue GDMT- ASA, lipitor, coreg continue risk factor modifications- heart healthy diet, regular exercise as tolerated and continue all medications. RTC 3 months with repeat BMP in 1 week [facility] 01-11-2023 Note Review of b/p log sh ows HTN remains uncontrolled at home- will add aldactone to regime and repeat BMP in 1 week to assess renal function and potassium level Have pt RTC in 2-4 weeks- message sent to Quyen Vernon MA. [facility] 01-11-2023 Note Benign hypertensive cardiomyopathy with heart failure (CMS/HCC) Review of b/p log shows HTN remains uncontrolled at home- will add aldactone to regime and repeat BMP in 1 week to assess renal function and potassium level Have pt RTC in 2-4 weeks- message sent to Quyen Vernon MA. Orders Placed This Encounter Procedures Basic metabolic panel Standing Status: Future Standing Expiration Date: 01/12/2024 Order Specific Question: Release to Patient Answer: Immediately Hawa Rush [employer] Division of Cardiology, [facility]- [phone] Pager- [phone] Email- [email or web address] 12-21-2022 Note [facility] II- currently e uvolemic without exacerbation Continue GDMT- ASA, lipitor, coreg, lisinopril Diuretic therapy- lasix qod Monitor daily weights, I&O, fluid restriction 1.5-2L/day, renal function and electrolytes- [facility] 12-21-2022 Note Coronary artery dise ase is stable Continue GDMT continue risk factor modifications- heart healthy diet, regular exercise as tolerated and continue all medications. [facility] 12-21-2022 Note stable: [facility] 12-21-2022 Note Currently stable wit hout any concerning symptoms [facility] 12-21-2022 Note Reviewed echocardiog ashwini with pt from 08/2022 No concerning symptoms currently Will repeat echo at 1 year- or Aug 2023 [facility] 12-21-2022 Note Hypertension is elev ated in office each time she is here most likely r/t white coat syndrome. States b/p typically at home is 130's/70 with occasional 140/80 Continue all meds [facility] 12-21-2022 [facility]-21[facility] Note Patient here for 4 m o follow up CAD, hypertension, and chronic systolic heart failure. Had echo in Aug 2023 and recent thyroid function. Denies chest pain and worsening SOB. BP at home 2 days ago was 140/72 she says. She has been taking lasix and potassium every other day. Review of Systems Cardiovascular: Positive for dyspnea on exertion. Hematologic/Lymphatic: Bruises/bleeds easily. Musculoskeletal: Positive for arthritis, back pain and joint pain. All other systems reviewed and are negative. [facility] 12-21-2022 Note [facility] PRO[facility] ESS NOTE HPI: Darek Mejía is a 72 y.o. female here for Coronary Artery Disease, Congestive Heart Failure, and Hypertension Patient here for 4 mo follow up CAD, hypertension, valvular disease, and chronic systolic heart failure. Had echo in Aug 2023 and recent thyroid function. Denies chest pain or worsening SOB. BP at home 2 days ago was 140/72 she says. She has been taking lasix and potassium every other day. Review of Systems Cardiovascular: Positive for dyspnea on exertion. Hematologic/Lymphatic: Bruises/bleeds easily. Musculoskeletal: Positive for arthritis, back pain and joint pain. All other systems reviewed and are negative. Visit Vitals BP (!) 189/72 (BP Location: Right arm, Patient Position: Sitting) Pulse (!) 45 Ht 1.727 m (5' 8 ) Wt 63 kg (139 lb) SpO2 96% BMI 21.13 kg/m??? Smoking Status Every Day BSA 1.74 m??? Allergies Allergen Reactions Tetanus Vaccines And Toxoid Other and Swelling Other reaction(s): Other: See Comments CRITICAL REACTION Other reaction(s): Other: See Comments CRITICAL REACTION CRITICAL REACTION Allopurinol Other Tetanus And Diphther. Tox (Pf) Other Isosorbide Dinitrate Nausea And Vomiting Other reaction(s): Nausea And Vomiting Severe head ache Severe head ache Other reaction(s): Nausea And Vomiting Severe head ache Medications: Current Outpatient Medications on File Prior to Visit Medication Sig Dispense Refill aspirin 81 mg chewable tablet Chew 1 tablet (81 mg) once daily as directed. 90 tablet 3 atorvastatin (Lipitor) 80 mg tablet atorvastatin 80 mg tablet TAKE 1 TABLET BY MOUTH EVERY DAY carvedilol (Coreg) 12.5 mg tablet Take 1 tablet (12.5 mg) by mouth in the morning and at bedtime. 180 tablet 3 cholecalciferol, vitamin D3, 50 mcg (2,000 unit) capsule Take by mouth in the morning. furosemide (Lasix) 20 mg tablet TAKE 1 TABLET BY MOUTH EVERY DAY (Patient taking differently: Take 20 mg by mouth every other day.) 90 tablet 2 levothyroxine (Synthroid, Levoxyl) 100 mcg tablet Take 100 mcg by mouth in the morning. lisinopril 20 mg tablet Take 20 mg by mouth in the morning. nitroglycerin (Nitrostat) 0.4 mg SL tablet Sublingual pantoprazole (ProtoNix) 40 mg EC tablet Take 40 mg by mouth in the morning. potassium chloride CR (Klor-Con) 10 mEq ER tablet Take 10 mEq by mouth every other day. sertraline (Zoloft) 100 mg tablet Take 100 mg by mouth in the morning. tiZANidine (Zanaflex) 4 mg tablet Take 4 mg by mouth in the morning, afternoon, and at bedtime. Trelegy Ellipta 100-62.5-25 mcg blister with device [DISCONTINUED] liothyronine (Cytomel) 25 mcg tablet Take 25 mcg by mouth in the morning. [DISCONTINUED] prednisoLONE acetate (Pred-Forte) 1 % ophthalmic suspension PLACE 1 DROP INTO BOTH EYES 4 TIMES A DAY No current facility-administered medications on file prior to visit. Physical Exam: Constitutional: Appearance: Normal appearance. Without apparent distress, chronically ill, thin appearing HENT: Head: Normocephalic and atraumatic. Nose: Nose normal. Mouth/Throat: Mouth: Mucous membranes are moist. Eyes: Extraocular Movements: Extraocular movements intact. Conjunctiva/sclera: Conjunctivae normal. Neck: Vascular: No JVD. Cardiovascular: Rate and Rhythm: Normal rate and regular rhythm. Pulses: Dorsalis pedis pulses are 3 on the right side and 3on the left side. Posterior tibial pulses are 3 on the right side and 3 on the left side. Heart sounds: RUSB systolic murmur 3/6, S1 normal and S2 normal. Pulmonary: Effort: Pulmonary effort is normal. Breath sounds: Normal breath sounds. Abdominal: General: Bowel sounds are normal. Palpations: Abdomen is soft. Musculoskeletal: General: Normal range of motion. Cervical back: Normal range of motion. Right lower leg: No edema. Left lower leg: No edema. Skin: General: Skin is warm and dry. Capillary Refill: Capillary refill takes less than 2 seconds. Neurological: General: No focal deficit present. Mental Status: She is alert and oriented to person, place, and time. Psychiatric: Mood and Affect: Mood normal. Behavior: Behavior normal. Thought Content: Thought content normal. Judgment: Judgment normal. Labs: 06/19/22 CBC normal BUN 15, CR 0.94- normal, K+ 4.1 LFT normal Chol 142, HDL 52, Trig 56, LDL 78.8 TSH 6.083- high, T4 6.8- normal, T3 33- normal A1C 5.7- normal Last lab values have been reviewed CV Testin08/16/22 No echocardiogram results found for the past 12 months Assessment/Plan: Dyslipidemia Continue lipitor 80 mg Primary hypertension Hypertension is elevated in office each time she is here most likely r/t white coat syndrome. States b/p typically at home is 130's/70 with occasional 140/80 Continue all meds Nonrheumatic aortic valve insufficiency Reviewed echocardiogram with pt from 08/2022 No concerning symptoms currently Will repeat echo at 1 yea (more content not included)... [facility] 10-30-2022 Note HNO ID: [id number] Author: XIOMARA Farmer Service: ? Author Type: It Security Consulting Director Type: Progress Notes Filed: 10/30/2022 3:28 PM Note Text: CONFIRM AIM PLANO LEFT EYE. XIOMARA Farmer [facility] 10-30-2022 History of Present illness Narrative CONFIRM AIM PLANO LEFT EYE. XIOMARA Farmer documented in this encounter [facility] 10-18-2022 Miscellaneous Notes Called and spoke with patient she has no car/ride for appointment today she has been rescheduled to 10/30 Summary: patient canceled PACC appointment Called patient to find out if she was coming in for PACC appointment. Patient states she called and canceled appointment earlier in the day. I gave her Dr. Wilson's schedulers contact number to reschedule. Please assist patient. Haven Moreno LPN October 18, 2022 1:18 PM documented in this encounter [facility] 08-15-2022 Note HNO ID: [id number] Author: Aleksandar Wilson V, MD Service: ? Author Type: Physician Type: Progress Notes Filed: 08/15/2022 3:51 PM Note Text: The documentation for this note was completed by Brenna Mohan COA acting as a scribe for Aleksandar WILSON MD. 08/15/2022 3:25 PM. ASSESSMENT / PLAN: 1. Combined cataract, left eye - Offered cataract extraction by phacoemulsification and intraocular lens implant with Dr. Wilson, left eye, left eye first - Aim: plano [monocular precautions] - Flomax/alpha-jose? No - Toric candidate: No - PanOptix candidate: No - Anesthesia: Topical with MAC - Contact lens use No - History of LASIK/PRK/RK No - Discussed initiate twice daily eyelid scrubs pending U/S biometry and surgery - [facility] Cataract Presurgical Documentation Cataract: Left eye Current Visual Acuity Right Eye Distance SC CF @ face Left Eye Distance SC 20/20 Best Corrected Vision Left Eye 20/20 Glare Testing: Right Eye High Defer due to vision Left Eye High 20/400 Visual Function: Darek Mejía states that the decline in vision from the cataract impedes her abilities as listed in the HPI, as well as other activities of daily living. Darek Mejía has confirmed that she is no longer able to function adequately on a day-to-day basis because of her current visual condition. Further, it is my medical opinion that the cataract is the primary cause, or at least a significantly contributory cause of her visual dysfunction. With uncomplicated cataract surgery and lens implantation, it is my expectation that her visual function and quality of life will improve significantly. The risks, benefits, alternatives, personnel and complications of cataract surgery with lens implantation were discussed with Darek Mejía in detail. These included, but are not limited to: infection, bleeding, loss of vision, and the need for additional surgery. she appeared to understand and asked that I proceed with plans for surgery. Patient acknowledges possible need for glasses after procedure. Intraocular lens options were discussed with patient. If patient was a good candidate for multifocal Intraocular lenses, risk of halos, glare, and possible need for glasses was discussed. Informed consent form signed by physician and patient. Literature regarding cataract and cataract extraction by phacoemulsification offered. Return for preadmission testing, biometry AND intraocular lens calculations prior to surgery. The patient was offered a surgery/procedure at a [facility] facility. The surgeon/proceduralist and patient have discussed in detail the risk of exposure to and/or potential harm posed by the COVID-19 virus with having a surgery/procedure at this time versus the risk of delaying the surgery/procedure. It is not possible to know either the risk of delaying the surgery or procedure or chance of getting an infection with perfect accuracy, but a joint decision was made between the patient and the surgeon/proceduralist to proceed at this time with the scheduled surgery/procedure as indicated on the consent form. 2. Posterior capsular opacity right eye -YAG capsulotomy right eye today -surgical care only -modifier 54 -Patient educated on posterior capsular opacity following cataract surgery. The risks, benefits, alternatives, personnel, and possible complications related to yttrium aluminum garnet (YAG) capsulotomy discussed with patient. Explained that risks include but are not limited to: increase in intraocular pressure, retinal tears/detachment, dislocation of the intraocular lens, and/or need for further procedures. Patient expresses understanding and elects to proceed with YAG capsulotomy performed by Dr. Wilson. Informed consent form signed by physician and patient. Literature regarding signs and symptoms of retinal detachment offered. -The patient was offered a surgery/procedure at a [facility] facility. The surgeon/proceduralist and patient have discussed in detail the risk of exposure to and/or potential harm posed by the COVID-19 virus with having a surgery/procedure at this time versus the risk of delaying the surgery/procedure. It is not possible to know either the risk of delaying the surgery or procedure or chance of getting an infection with perfect accuracy, but a joint decision was made between the patient and the surgeon/proceduralist to proceed at this time with the scheduled surgery/procedure as indicated on the consent form. -F/U [address] Mccollum ([facility]) The documentation recorded by the scribe accurately reflects the service I personally performed and the decisions made by me. I have confirmed and edited as necessary the relevant ophthalmic history, ROS, and the exam findings as obtained by others. I have seen and examined Darek Mejía. I also have reviewed and agree with the ass (more content not included)... [facility] 08-15-2022 Note HNO ID: [id number] Author: Jean-Claude Miles, OD Service: ? Author Type: FINANCIAL SERVICES ASSOCIATE Type: Progress Notes Filed: 08/15/2022 3:51 PM Note Text: ASSESSMENT/PLAN: 1. PCO (posterior capsular opacification), right - ICD9: 366.50, ICD10: H26.491 (primary diagnosis) 2. Pseudophakia, right eye - ICD9: V43.1, ICD10: Z96.[address] Aleksandar Wilson today Guarded prognosis 2/2 Mac hole hx 3. 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 I have seen and examined this patient. I also have reviewed and agree with the assessment and plan as stated above and agree with all of its relevant components. Jean-Claude Miles, OD August 15, 2022 3:07 PM [facility] 08-15-2022 History of Present illness Narrative The documentation for this note was completed by Brenna Mohan, COA acting as a scribe for Aleksandar WILSON MD. 08/15/2022 3:25 PM. ASSESSMENT / PLAN: 1. Combined cataract, left eye - Offered cataract extraction by phacoemulsification and intraocular lens implant with Dr. Wilson, left eye, left eye first - Aim: plano [monocular precautions] - Flomax/alpha-jose? No - Toric candidate: No - PanOptix candidate: No - Anesthesia: Topical with MAC - Contact lens use No - History of LASIK/PRK/RK No - Discussed initiate twice daily eyelid scrubs pending U/S biometry and surgery - [facility] Cataract Presurgical Documentation Cataract: Left eye Current Visual Acuity Right Eye Distance SC CF @ face Left Eye Distance SC 20/20 Best Corrected Vision Left Eye 20/20 Glare Testing: Right Eye High Defer due to vision Left Eye High 20/400 Visual Function: Darek Mejía states that the decline in vision from the cataract impedes her abilities as listed in the HPI, as well as other activities of daily living. Darek Mejía has confirmed that she is no longer able to function adequately on a day-to-day basis because of her current visual condition. Further, it is my medical opinion that the cataract is the primary cause, or at least a significantly contributory cause of her visual dysfunction. With uncomplicated cataract surgery and lens implantation, it is my expectation that her visual function and quality of life will improve significantly. The risks, benefits, alternatives, personnel and complications of cataract surgery with lens implantation were discussed with Darek Mejía in detail. These included, but are not limited to: infection, bleeding, loss of vision, and the need for additional surgery. she appeared to understand and asked that I proceed with plans for surgery. Patient acknowledges possible need for glasses after procedure. Intraocular lens options were discussed with patient. If patient was a good candidate for multifocal Intraocular lenses, risk of halos, glare, and possible need for glasses was discussed. Informed consent form signed by physician and patient. Literature regarding cataract and cataract extraction by phacoemulsification offered. Return for preadmission testing, biometry & intraocular lens calculations prior to surgery. The patient was offered a surgery/procedure at a [facility] facility. The surgeon/proceduralist and patient have discussed in detail the risk of exposure to and/or potential harm posed by the COVID-19 virus with having a surgery/procedure at this time versus the risk of delaying the surgery/procedure. It is not possible to know either the risk of delaying the surgery or procedure or chance of getting an infection with perfect accuracy, but a joint decision was made between the patient and the surgeon/proceduralist to proceed at this time with the scheduled surgery/procedure as indicated on the consent form. 2. Posterior capsular opacity right eye -YAG capsulotomy right eye today -surgical care only -modifier 54 -Patient educated on posterior capsular opacity following cataract surgery. The risks, benefits, alternatives, personnel, and possible complications related to yttrium aluminum garnet (YAG) capsulotomy discussed with patient. Explained that risks include but are not limited to: increase in intraocular pressure, retinal tears/detachment, dislocation of the intraocular lens, and/or need for further procedures. Patient expresses understanding and elects to proceed with YAG capsulotomy performed by Dr. Wilson. Informed consent form signed by physician and patient. Literature regarding signs and symptoms of retinal detachment offered. -The patient was offered a surgery/procedure at a [facility] facility. The surgeon/proceduralist and patient have discussed in detail the risk of exposure to and/or potential harm posed by the COVID-19 virus with having a surgery/procedure at this time versus the risk of delaying the surgery/procedure. It is not possible to know either the risk of delaying the surgery or procedure or chance of getting an infection with perfect accuracy, but a joint decision was made between the patient and the surgeon/proceduralist to proceed at this time with the scheduled surgery/procedure as indicated on the consent form. -F/U [address] Mccollum ([facility]) The documentation recorded by the scribe accurately reflects the service I personally performed and the decisions made by me. I have confirmed and edited as necessary the relevant ophthalmic history, ROS, and the exam findings as obtained by others. I have seen and examined Darek Mejía. I also have reviewed and agree with the assessment and plan as stated above and agree with all of its relevant components. Aleksandar WILSON MD August 15, 2022 3:25 PM ASSESSMENT/PLAN: 1. PCO (posterior capsular opacification), right - ICD9: 366.50, ICD10: H26.491 (primary diagnosis) 2. Pseudophakia, right eye - ICD9: V43.1, ICD10: Z96.[address] Aleksandar Wilson today Guarded prognosis 2/2 Mac hole hx 3. 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 I have seen and examined this patient. I also have reviewed and agree with the assessment and plan as stated above and agree with all of its relevant components. Jean-Claude Miles, OD August 15, 2022 3:07 PM documented in this encounter [facility] 01-09-2020 History of Past i llness Narrative Problem Noted Date Resolved Date VAN (acute kidney injury) 01/09/20202019 Overview: History: Postoperative. Baseline creatinine 04/2018 0.8 --- Creatinine at OSH 1.34 --> 1.57 . Peaked at 1.76 on 01/11. Assessment: Stable on IV Lasix. Estimated Creatinine Clearance: 56.2 mL/min (based on SCr of 0.94 mg/dL). Plan: Continue Lasix, monitor for response. Trend SrCr and UOP. Avoid nephrotoxic agents and hypotension. Renally dose medications. Last Assessment & Plan: Ischemic hepatitis 01/09/2020 01/16/2020 Overview: History: hepatocellular pattern of LFT elevation at OSH; ALT 185, AST 222, T bili 1.8 at OSH Assessment: LFTs stable and downtrending- ALT 102, AST 57. Plan: Follow trends, Continue Lipitor at this time, discontinue if becomes symptomatic or recurrent uptrend in LFTs is noted. Leukocytosis 01/09/2020 01/16/2020 Overview: - WBC 15k --> 13k at OSH, UA 5-10 WBC, received cipro switched to zosyn at OSH - latest WBC at 14 Plan: - likely post op; will continue to monitor - f/u with Blood Cx - prophylactic abx with vanc (stop 01/11) and aztreonam (stop 01/11) Hypoxemia 07/22/2015 07/24/2015 Overview: 07/22/2015 Wean FiO2 as tolerated. Postprocedural hypotension 07/21/201501/13 Overview: Wean vaso infusion for MAP of 65 mm Hg. On mechanically assisted ventilation 07/20/2015 07/23/2015 Overview: 07/20/2015 Intubated in OR. Adequate ventilation and oxygenation. Sats 94% Sedated while intubated - Wean to extubate - Wean propofol gtt - OG tube to be removed during extubation Stress hyperglycemia 07/20/2015 07/24/2015 Overview: No Hx of DM A/P: Hyperglycemia exacerbated by surgery. Blood glucose controlled. Continue SSI. Acute postoperative pain 07/20/2015 015 Overview: S/P: CABG x5 A/P: Pain controlled. Continue Oxycodone, Tylenol, and Lidoderm. Supplement as needed. Cardiac insufficiency following cardiac surgery 07/20/2015 01/14/2020 Overview: History: Preop LVEF 55%. Postop LVEF moderate, RV moderate. Assessment: Requiring inotropic support postoperatively. Plan: Epinephrine weaned off 01/10. Titrate Dobutamine infusion to maintain CI >2.2. Trend CO/CI, SvO2, lactate, and UOP. Repeat ECHO once off inotropic support. Cardiomyopathy, ischemic 07/19/2015 015 Overview: see plan CAD Preop testing 07/19/2015 07/24/2015 Overview: Images from the original note were not included. [facility] Surgeon: Clovis Bernal M.D. Informed Consent Completed: No STS Score: CAB Only Risk of Mortality: 0.918% Morbidity or Mortality: 8.932% Long Length of Stay: 2.926% Short Length of Stay: 54.267% Permanent Stroke: 0.906% Prolonged Ventilation: 5.97% DSW Infection: 0.18% Renal Failure: 0.996% Reoperation: 3.898% CAD: Yes - CAD on Problem List: Yes Is intended procedure a CABG: Yes - is a beta jose ordered? Yes H & P completed: Yes PA/LAT: Pending CT: N/A MRI: Completed LE US: N/A Cath: Yes - reviewed: Yes Echo:Pending EKG: Completed EF %: 31% PI's: right dom: unable to obtain - Cath site Left: 44% - no history of varicose veins, vein stripping or carpel tunnel surgeries. 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 Bernal okay to proceed without PFT. Patient will be scheduled for 1st. Round tomorrow ) Recent Labs 07/19/15 0815 WBC 10.67 HB 11.6 HCT 34.8* PLT 386 CREAT 0.85 UA: pending HCG:N/A ABO/ABO Confirmed: pending Blood ordered: No SA Swab: Yes - results: Pending Last Dose of Anticoagulation: Aspirin Op Note: N/A Pacemaker Check: N/A Consults: none DM: No Cardiac Surgical prep: Yes SIGNATURE: Nava Osuna CNP CHECKED BY: DATE of SERVICE: 07/19/2015 TIME of SERVICE: 4:19 PM Abnormal nuclear stress test 06/22/2015 Encounter for pre-operative cardiovascular clear ance 06/22/2015 07/26/2015 Dyslipidemia 06/22/2015 07/26/2015 documented as of this encounter (statuses as of 08/15/2022) [facility] History of Past illness Narrative* Problem Noted Date Resolved Date VAN (acute kidney injury) 01/09/20202019 Overview: History: Postoperative. Baseline creatinine 04/2018 0.8 --- Creatinine at OSH 1.34 --> 1.57 . Peaked at 1.76 on 01/11. Assessment: Stable on IV Lasix. Estimated Creatinine Clearance: 56.2 mL/min (based on SCr of 0.94 mg/dL). Plan: Continue Lasix, monitor for response. Trend SrCr and UOP. Avoid nephrotoxic agents and hypotension. Renally dose medications. Last Assessment & Plan: Ischemic hepatitis 01/09/2020 01/16/2020 Overview: History: hepatocellular pattern of LFT elevation at OSH; ALT 185, AST 222, T bili 1.8 at OSH Assessment: LFTs stable and downtrending- ALT 102, AST 57. Plan: Follow trends, Continue Lipitor at this time, discontinue if becomes symptomatic or recurrent uptrend in LFTs is noted. Leukocytosis 01/09/2020 01/16/2020 Overview: - WBC 15k --> 13k at OSH, UA 5-10 WBC, received cipro switched to zosyn at OSH - latest WBC at 14 Plan: - likely post op; will continue to monitor - f/u with Blood Cx - prophylactic abx with vanc (stop 01/11) and aztreonam (stop 01/11) Hypoxemia 07/22/2015 07/24/2015 Overview: 07/22/2015 Wean FiO2 as tolerated. Postprocedural hypotension 07/21/201501/13 Overview: Wean vaso infusion for MAP of 65 mm Hg. On mechanically assisted ventilation 07/20/2015 07/23/2015 Overview: 07/20/2015 Intubated in OR. Adequate ventilation and oxygenation. Sats 94% Sedated while intubated - Wean to extubate - Wean propofol gtt - OG tube to be removed during extubation Stress hyperglycemia 07/20/2015 07/24/2015 Overview: No Hx of DM A/P: Hyperglycemia exacerbated by surgery. Blood glucose controlled. Continue SSI. Acute postoperative pain 07/20/2015 015 Overview: S/P: CABG x5 A/P: Pain controlled. Continue Oxycodone, Tylenol, and Lidoderm. Supplement as needed. Cardiac insufficiency following cardiac surgery 07/20/2015 01/14/2020 Overview: History: Preop LVEF 55%. Postop LVEF moderate, RV moderate. Assessment: Requiring inotropic support postoperatively. Plan: Epinephrine weaned off 01/10. Titrate Dobutamine infusion to maintain CI >2.2. Trend CO/CI, SvO2, lactate, and UOP. Repeat ECHO once off inotropic support. Cardiomyopathy, ischemic 07/19/2015 015 Overview: see plan CAD Preop testing 07/19/2015 07/24/2015 Overview: Images from the original note were not included. [facility] PRE-OP CHECKLIST Surgeon: Clovis Bernal M.D. Informed Consent Completed: No STS Score: CAB Only Risk of Mortality: 0.918% Morbidity or Mortality: 8.932% Long Length of Stay: 2.926% Short Length of Stay: 54.267% Permanent Stroke: 0.906% Prolonged Ventilation: 5.97% DSW Infection: 0.18% Renal Failure: 0.996% Reoperation: 3.898% CAD: Yes - CAD on Problem List: Yes Is intended procedure a CABG: Yes - is a beta jose ordered? Yes H & P completed: Yes PA/LAT: Pending CT: N/A MRI: Completed LE US: N/A Cath: Yes - reviewed: Yes Echo:Pending EKG: Completed EF %: 31% PI's: right dom: unable to obtain - Cath site Left: 44% - no history of varicose veins, vein stripping or carpel tunnel surgeries. 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 Bernal okay to proceed without PFT. Patient will be scheduled for 1st. Round tomorrow ) Recent Labs 07/19/15 0815 WBC 10.67 HB 11.6 HCT 34.8* PLT 386 CREAT 0.85 UA: pending HCG:N/A ABO/ABO Confirmed: pending Blood ordered: No SA Swab: Yes - results: Pending Last Dose of Anticoagulation: Aspirin Op Note: N/A Pacemaker Check: N/A Consults: none DM: No Cardiac Surgical prep: Yes SIGNATURE: Nava Osuna CNP CHECKED BY: DATE of SERVICE: 07/19/2015 TIME of SERVICE: 4:19 PM Abnormal nuclear stress test 06/22/2015 Encounter for pre-operative cardiovascular clear ance 06/22/2015 07/26/2015 Dyslipidemia 06/22/2015 07/26/2015 documented as of this encounter (statuses as of 08/16/2022) [facility] History of Past illness Narrative* Problem Noted Date Resolved Date VAN (acute kidney injury) 01/09/20202019 Overview: History: Postoperative. Baseline creatinine 04/2018 0.8 --- Creatinine at OSH 1.34 --> 1.57 . Peaked at 1.76 on 01/11. Assessment: Stable on IV Lasix. Estimated Creatinine Clearance: 56.2 mL/min (based on SCr of 0.94 mg/dL). Plan: Continue Lasix, monitor for response. Trend SrCr and UOP. Avoid nephrotoxic agents and hypotension. Renally dose medications. Last Assessment & Plan: Ischemic hepatitis 01/09/2020 01/16/2020 Overview: History: hepatocellular pattern of LFT elevation at OSH; ALT 185, AST 222, T bili 1.8 at OSH Assessment: LFTs stable and downtrending- ALT 102, AST 57. Plan: Follow trends, Continue Lipitor at this time, discontinue if becomes symptomatic or recurrent uptrend in LFTs is noted. Leukocytosis 01/09/2020 01/16/2020 Overview: - WBC 15k --> 13k at OSH, UA 5-10 WBC, received cipro switched to zosyn at OSH - latest WBC at 14 Plan: - likely post op; will continue to monitor - f/u with Blood Cx - prophylactic abx with vanc (stop 01/11) and aztreonam (stop 01/11) Hypoxemia 07/22/2015 07/24/2015 Overview: 07/22/2015 Wean FiO2 as tolerated. Postprocedural hypotension 07/21/201501/13 Overview: Wean vaso infusion for MAP of 65 mm Hg. On mechanically assisted ventilation 07/20/2015 07/23/2015 Overview: 07/20/2015 Intubated in OR. Adequate ventilation and oxygenation. Sats 94% Sedated while intubated - Wean to extubate - Wean propofol gtt - OG tube to be removed during extubation Stress hyperglycemia 07/20/2015 07/24/2015 Overview: No Hx of DM A/P: Hyperglycemia exacerbated by surgery. Blood glucose controlled. Continue SSI. Acute postoperative pain 07/20/2015 015 Overview: S/P: CABG x5 A/P: Pain controlled. Continue Oxycodone, Tylenol, and Lidoderm. Supplement as needed. Cardiac insufficiency following cardiac surgery 07/20/2015 01/14/2020 Overview: History: Preop LVEF 55%. Postop LVEF moderate, RV moderate. Assessment: Requiring inotropic support postoperatively. Plan: Epinephrine weaned off 10. Titrate Dobutamine infusion to maintain CI >2.2. Trend CO/CI, SvO2, lactate, and UOP. Repeat ECHO once off inotropic support. Cardiomyopathy, ischemic 07/19/2015 015 Overview: see plan CAD Preop testing 07/19/2015 07/24/2015 Overview: Images from the original note were not included. [facility] PRE[facility] CHECK[facility] Surgeon: Clovis Bernal M.D. Informed Consent Completed: No STS Score: CAB Only Risk of Mortality: 0.918% Morbidity or Mortality: 8.932% Long Length of Stay: 2.926% Short Length of Stay: 54.267% Permanent Stroke: 0.906% Prolonged Ventilation: 5.97% DSW Infection: 0.18% Renal Failure: 0.996% Reoperation: 3.898% CAD: Yes - CAD on Problem List: Yes Is intended procedure a CABG: Yes - is a beta jose ordered? Yes H & P completed: Yes PA/LAT: Pending CT: N/A MRI: Completed LE US: N/A Cath: Yes - reviewed: Yes Echo:Pending EKG: Completed EF %: 31% PI's: right dom: unable to obtain - Cath site Left: 44% - no history of varicose veins, vein stripping or carpel tunnel surgeries. 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 Dolores henry to proceed without PFT. Patient will be scheduled for 1st. Round tomorrow ) Recent Labs 07/19/15 0815 WBC 10.67 HB 11.6 HCT 34.8* PLT 386 CREAT 0.85 UA: pending HCG:N/A ABO/ABO Confirmed: pending Blood ordered: No SA Swab: Yes - results: Pending Last Dose of Anticoagulation: Aspirin Op Note: N/A Pacemaker Check: N/A Consults: none DM: No Cardiac Surgical prep: Yes SIGNATURE: Nava Osuna CNP CHECKED BY: DATE of SERVICE: 07/19/2015 TIME of SERVICE: 4:19 PM Abnormal nuclear stress test 06/22/2015 Encounter for pre-operative cardiovascular clear ance 06/22/2015 07/26/2015 Dyslipidemia 06/22/2015 07/26/2015 documented as of this encounter (statuses as of 10/18/2022) [facility]05-08-2020 History of Past illness Narrative* Problem Noted Date Resolved Date VAN (acute kidney injury) 01/09/20202019 Overview: History: Postoperative. Baseline creatinine 04/2018 0.8 --- Creatinine at OSH 1.34 --> 1.57 . Peaked at 1.76 on 01/11. Assessment: Stable on IV Lasix. Estimated Creatinine Clearance: 56.2 mL/min (based on SCr of 0.94 mg/dL). Plan: Continue Lasix, monitor for response. Trend SrCr and UOP. Avoid nephrotoxic agents and hypotension. Renally dose medications. Last Assessment & Plan: Ischemic hepatitis 01/09/2020 01/16/2020 Overview: History: hepatocellular pattern of LFT elevation at OSH; ALT 185, AST 222, T bili 1.8 at OSH Assessment: LFTs stable and downtrending- ALT 102, AST 57. Plan: Follow trends, Continue Lipitor at this time, discontinue if becomes symptomatic or recurrent uptrend in LFTs is noted. Leukocytosis 01/09/2020 01/16/2020 Overview: - WBC 15k --> 13k at OSH, UA 5-10 WBC, received cipro switched to zosyn at OSH - latest WBC at 14 Plan: - likely post op; will continue to monitor - f/u with Blood Cx - prophylactic abx with vanc (stop 01/11) and aztreonam (stop 01/11) Hypoxemia 07/22/2015 07/24/2015 Overview: 07/22/2015 Wean FiO2 as tolerated. Postprocedural hypotension 07/21/201501/13 Overview: Wean vaso infusion for MAP of 65 mm Hg. On mechanically assisted ventilation 07/20/2015 07/23/2015 Overview: 07/20/2015 Intubated in OR. Adequate ventilation and oxygenation. Sats 94% Sedated while intubated - Wean to extubate - Wean propofol gtt - OG tube to be removed during extubation Stress hyperglycemia 07/20/2015 07/24/2015 Overview: No Hx of DM A/P: Hyperglycemia exacerbated by surgery. Blood glucose controlled. Continue SSI. Acute postoperative pain 07/20/2015 015 Overview: S/P: CABG x5 A/P: Pain controlled. Continue Oxycodone, Tylenol, and Lidoderm. Supplement as needed. Cardiac insufficiency following cardiac surgery 07/20/2015 01/14/2020 Overview: History: Preop LVEF 55%. Postop LVEF moderate, RV moderate. Assessment: Requiring inotropic support postoperatively. Plan: Epinephrine weaned off 10. Titrate Dobutamine infusion to maintain CI >2.2. Trend CO/CI, SvO2, lactate, and UOP. Repeat ECHO once off inotropic support. Cardiomyopathy, ischemic 07/19/2015 015 Overview: see plan CAD Preop testing 07/19/2015 07/24/2015 Overview: Images from the original note were not included. [facility] PRE[facility] CHECKLIST Surgeon: Clovis Bernal M.D. Informed Consent Completed: No STS Score: CAB Only Risk of Mortality: 0.918% Morbidity or Mortality: 8.932% Long Length of Stay: 2.926% Short Length of Stay: 54.267% Permanent Stroke: 0.906% Prolonged Ventilation: 5.97% DSW Infection: 0.18% Renal Failure: 0.996% Reoperation: 3.898% CAD: Yes - CAD on Problem List: Yes Is intended procedure a CABG: Yes - is a beta jose ordered? Yes H & P completed: Yes PA/LAT: Pending CT: N/A MRI: Completed LE US: N/A Cath: Yes - reviewed: Yes Echo:Pending EKG: Completed EF %: 31% PI's: right dom: unable to obtain - Cath site Left: 44% - no history of varicose veins, vein stripping or carpel tunnel surgeries. 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 Bernal okay to proceed without PFT. Patient will be scheduled for 1st. Round tomorrow ) Recent Labs 07/19/15 0815 WBC 10.67 HB 11.6 HCT 34.8* PLT 386 CREAT 0.85 UA: pending HCG:N/A ABO/ABO Confirmed: pending Blood ordered: No SA Swab: Yes - results: Pending Last Dose of Anticoagulation: Aspirin Op Note: N/A Pacemaker Check: N/A Consults: none DM: No Cardiac Surgical prep: Yes SIGNATURE: Nava Osuna CNP CHECKED BY: DATE of SERVICE: 07/19/2015 TIME of SERVICE: 4:19 PM Abnormal nuclear stress test 06/22/2015 Encounter for pre-operative cardiovascular clear ance 06/22/2015 07/26/2015 Dyslipidemia 06/22/2015 07/26/2015 documented as of this encounter (statuses as of 10/31/2022) [facility] PCO (posterior capsular opacification), right- Primary After-cataract, unspecified Pseudophakia, right eye Lens replaced by other means Combined forms of age-related cataract of left eye Other and combined forms of senile cataract Full thickness macular hole, right [facility] Diagnosis Combined forms of age-related cataract of left eye- Primary Other and combined forms of senile cataract [facility] Diagnosis Combined forms of age-related cataract of left eye- Primary Other and combined forms of senile cataract Combined forms of age-related cataract of left eye Other and combined forms of senile cataract documented in this encounter [facility] Summary Purpose Family History No Family History Records FoundNo Family History Records FoundNo Family History Records FoundNo Family History Records FoundNo Family History Records FoundNo Family History Records FoundNo Family History Records Found Advance Directives No Advanced Directives Records FoundDocuments on File Type Date 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 Anesthetic utilized: Monitored anesthesia care. Health Status Allergies: Allergic Reactions (Selected) Severity Not Documented Tetanus toxoid- Edema. Problem list: All Problems Smoker / SNOMED CT [id number] / Confirmed Added secondary to documentation in Social History. Physical Examination Vital Signs 12/30/2018 08:26 EDT Heart Rate Monitored 56 bpm LOW Respiratory Rate 24 br/min HI Systolic Blood Pressure 149 mmHg HI Diastolic Blood Pressure 77 mmHg Mean Arterial Pressure, Monitered 101 mmHg SpO2 98 % 12/30/2018 08:20 EDT Heart Rate Monitored 58 bpm bpm Diastolic Blood Pressure Non-Invasive 82 Systolic Blood Pressure Non-Invasive 138 Mean Arterial Pressure Non-Invasive 110 SpO2 99 % % 12/30/2018 08:18 EDT Diastolic Blood Pressure Non-Invasive 79 Systolic Blood (more content not included)... Additional Source Comments INFORMATION SOURCE (unrecogn ized section and content) DATE CREATED AUTHOR 02/21/2018 [facility] DATE CREATED AUTHOR AUTHOR'S ORGANIZ ATION 02/25/2018 [facility] DATE CREATED AUTHOR AUTHOR'S ORGANIZ ATION 04/19/2019 [facility] DATE CREATED AUTHOR AUTHOR'S ORGANIZ ATION 08/22/2019 [facility] DATE CREATED AUTHOR AUTHOR'S ORGANIZ ATION 11/02/2022 [facility] DATE CREATED AUTHOR AUTHOR'S ORGANIZ ATION 12/09/2022 [facility] DATE CREATED AUTHOR AUTHOR'S ORGANIZ ATION 08/19/2023 [facility] Source Comments (unrecognize d section and content) In the event this informatio n is protected by the Federal Confidentiality of Alcohol and Drug Abuse Patient Records regulations: The Federal rules restrict any use of the information to criminally investigate or prosecute any alcohol or drug abuse patient.[facility] the event this information is protected by the Federal Confidentiality of Alcohol and Drug Abuse Patient Records regulations: The Federal rules restrict any use of the information to criminally investigate or prosecute any alcohol or drug abuse patient.[facility] the event this information is protected by the Federal Confidentiality of Alcohol and Drug Abuse Patient Records regulations: The Federal rules restrict any use of the information to criminally investigate or prosecute any alcohol or drug abuse patient.[facility] the event this information is protected by the Federal Confidentiality of Alcohol and Drug Abuse Patient Records regulations: The Federal rules restrict any use of the information to criminally investigate or prosecute any alcohol or drug abuse patient.[facility] Reason for Visit (unrecogniz ed section and content) Reason Comments Cataract Evaluation Left eye Posterior Capsule Opacification Evaluati on Right eye Specialty Diagnoses / Procedures Referred By Arben rosario Referred To Contact OPHTHALMOLOGY Diagnoses Combined forms of age-related cataract, bilateral Laser Yag Procedures POST-CATARACT LASER SURGERY YAG EVAL Darian Chowdhury [address] [address] Opht [facility] [address] [place] [address] Referral ID Status Reason Start Date Expiration Date Visits Re quested Visits Authorized [id number] Closed 03/21/2022 09/27/2022 1 1 Reason Comments Appointment Reason Comments Pre-Op Exam Care Teams (unrecognized sec tion and content) Hot Box Spotter Relationship Specialty Start Date End Date Kayleigh Gay MD PCP - General Family Medicine 06/17/15 Kayleigh Gay MD Family Medicine 06/17/15 Hot Box Spotter Relationship Specialty Start Date End Date Kayleigh Gay MD PCP - General Family Medicine 06/17/15 Kayleigh Gay MD Family Medicine 06/17/15 Hot Box Spotter Relationship Specialty Start Date End Date Kayleigh Gay MD PCP - General Family Medicine 06/17/15 Kayleigh Gay MD [facility] 06/17/15 Hot Box Spotter Relationship Specialty Start Date End Date Kayleigh Gay MD PCP - General Family Medicine 06/17/15 Kayleigh Gay MD [facility] 06/17/15 FOR RECORDS PERTAINING TO PATIENTS WHO ARE OR HAVE BEEN ENROLLED IN A CHEMICAL DEPENDENCY/SUBSTANCEABUSE PROGRAM, SOME INFORMATION MAY BE OMITTED. This clinical summary was aggregated from multiple sources. Caution should be exercised in using it in the provision of clinical care. This summary normalizes information from multiple sources, and as a consequence, information in this document may materially change the coding, format and clinical context of patient data. In addition, data may be omitted in some cases. CLINICAL DECISIONS SHOULD BE BASED ON THE PRIMARY CLINICAL RECORDS. [facility]. provides no warranty or guarantee of the accuracy or completeness of information in this document.
[2023-09-05 07:42] VITALS: BP 218/98; PULSE 52; RESP 18; TEMP 36; O2SAT 96; BMI 17.2
[2023-09-05] MEDS: LACTATED RINGER'S SOLUTION 1,000 ML 50 ML IV (08:23)
--- NOTE | 2023-09-05 08:59 | PM.GSPRC ---
Date of procedure: 09/05/23 Indications for Procedure: History of Perry's esophagus constipation Pre-op diagnosis: History of Perry's esopagus/constipation Procedure: Colonoscopy EGD with biopsy distal esophagus and antrum Anesthesia: MAC Surgeon: Rylan Zhang Procedure Summary: PROCEDURE: The patient was taken to the Endoscopy Suite, placed in the left lateral recumbent position, given IV sedation as above. A rectal digital exam was performed. The sphincter tone was found to be normal. No rectal masses were appreciated. The Olympus video colonoscope was advanced under direct visualization to the rectum, sigmoid colon, descending colon, transverse colon and ascending colon to the ileocecal valve. The underside of the valve was seen.Appendiceal lumen was visualized. The scope was slowly withdrawn with air being desufflated as it was withdrawn. No gross tumors, polyps or diverticula were seen. The patient tolerated the procedure well and went to the Recovery Area in satisfactory condition. I recommend the patient use a bulk laxative on a regular basis and follow up as needed.
--- NOTE | 2023-09-05 09:49 | PC.NURSE ---
PATIENT BROUGHT OUT TO BAY 13 AT 932 . DUE TO ELEVATED BLOOD PRESSURE PROCEDURE WAS UNSAFE TO PROCEED BLOOD PRESSURE 180/100 MANUAL, RESP -20, O2 96,
--- NOTE | 2023-09-06 13:16 | PC.NURSE ---
0935- Surgery cancelled d/t hypertension 09/05/23
== END 2023-09-05 09:35 | disposition home or self-care (01) ==
PROVIDERS: PCP Family Medicine; Visit Provider Surgery
PROC: (CPT 43235; principal; 2023-09-05 08:20)
DX: Z53.8 Procedure and treatment not carried out for other reasons (principal); K22.70 Barrett's esophagus without dysplasia; Z80.0 Family history of malignant neoplasm of digestive organs; I10 Essential (primary) hypertension; R10.32 Left lower quadrant pain; K59.00 Constipation, unspecified; K57.30 Diverticulosis of large intestine without perforation or abscess without bleeding; I48.91 Unspecified atrial fibrillation; Z79.01 Long term (current) use of anticoagulants; Z90.49 Acquired absence of other specified parts of digestive tract; K21.9 Gastro-esophageal reflux disease without esophagitis; E78.00 Pure hypercholesterolemia, unspecified; Z90.710 Acquired absence of both cervix and uterus; Z79.82 Long term (current) use of aspirin; Z79.899 Other long term (current) drug therapy; F17.210 Nicotine dependence, cigarettes, uncomplicated
CPT/HCPCS: 43235; 45378; J1290

== ENCOUNTER 2023-10-01 14:13 | Outpatient (OUT) | payer MEDICARE, SELFPAY ==
--- OUTSIDE RECORDS SUMMARY | 2023-10-01 14:16 | XMS_ITS | CCD ---
Author Name Unknown Address [address] [place] [address] Organization [facility] Care Team Providers Care Proof Operator Name Role Phone DUSTIN MCMAHON K Unavailable Unavailable SALOME, DUSTIN K Unavailable Unavailable HOY KAYLEIGH M Unavailable Unavailable SALOME, DUSTIN K Unavailable Unavailable SALOME, DUSTIN K Unavailable Unavailable KAYLEIGH GAY M Unavailable Unavailable PHYSICIAN, DEFAULT Unavailable Unavailable PHYSICIAN, DEFAULT Unavailable Unavailable OLGA PARISI I Referring Unavailable KAYLEIGH GAY M Primary Care Unavailable ESTEBAN LÓPEZ HLia Admitting Unavailable ESTEBAN LÓPEZ HLia Attending Unavailable KAYLEIGH GAY M Primary Care Unavailable Kayleigh Gay MD Primary Care Provider [phone] Kayleigh Gay MD Unavailable KATIE V, [...] HANI Attending Unavailable IVANIA, HANI Referring Unavailable SHEIAL, WHITNEY Referring Unavailable ELTAHAWY, EHAB Attending Unavailable ADRI, HAWA Attending Unavailable ADRI, HAWA Attending Unavailable ELTAHAWY, EHAB Attending Unavailable Allergies Allergy Classification Reported Allergen(s) Allergy Type Date of Onset Reaction(s) Facility (7 sources) Allopurinol; Translations: [ALLOPURINOL] Drug Allergy 5 Intolerance [facility] (6 sources) diphtheria toxoid vaccine, inactivated / tetanus toxoid vaccine, inactivated; Translations: [TETANUS AND DIPHTHER. TOX (PF)] Drug Allergy 8 Intolerance [facility] (5 sources) Isosorbide; Translations: [ISOSORBIDE MONONITRATE] Drug Allergy 6 Intolerance [facility] (5 sources) tetanus toxoid vaccine, inactivated; Translations: [TETANUS TOXOID ADSORBED] Drug Allergy 5 Other: See Comments [facility] (1 source) Isosorbide Dinitrate; Translations: [ISOSORBIDE DINITRATE] Drug Allergy 6 [facility] Repository (1 source) Spironolactone; Translations: [SPIRONOLACTONE ] Drug Allergy 3 [facility] Repository (1 source) TETANUS VACCINES AND TOXOID; Translations: [TETANUS VACCINES AND TOXOID] Propensity to adverse reactions to drug (disorder) 5 [facility] Repository Medications Current Medications Medication Drug Class(es) [...] Coronary atherosclerosis; Translations: [Atherosclerotic heart disease of [place] coronary artery without angina pectoris] Onset: 06-22-2015 [...] Test Name Value Interpretation Reference Range Facility Orders Onlyon 09-05-2023 Orders Only [id number] MayelinjocelyneToro rosarioDarek N 1950 F Date Provider Department Center 09/05/2023 NARAYAN RODRIGUEZ MARIANA Roy Family History Problem Relation Age of Onset Coronary artery disease Father Diabetes Father Family Status - Relation Status Age at Father [facility] 36on 08-17-2023 36 6 weeks s/p cardioversion would be 08/31/2023. Judy at Dr. Zhang' office made aware via fax. [facility] [address] Willian henderson' office called requesting Darek westley Yennyquis 3 days prior to EGD/colonscopy scheduled on 09/05/2023. Please advise. [facility] Office Visiton 08-01-2023 Follow-up visit [id number] Darek Mejía 1950 Date Provider Department Center 08/01/2023 OPAL VIVEROS Family History Problem Relation Age of Onset Coronary artery disease Father Diabetes Father Family Status - Relation Status Age at Father Level of Service:09766 CO OFFICE/OUTPATIENT ESTABLISHED HIGH MDM 40-54 MIN [facility] 30on 07-22-2023 30 Problem: Pain - Adul [...] dysrhythmias or at baseline Outcome: Progressing Normal [facility] 30 The patient is Moderately Stable - [...] dysrhythmias or at baseline Outcome: Progressing Normal [facility] ANTI-XA (HEPARIN LEVEL)on HEPARIN UNFRACTIONATED (U/ML) IN PPP BY CHROMOGENIC METHOD 0.17 IU/mL Low 0.3-0.7 [facility] Comment on above: Result Comment: [place] roxaban and Apixaban will interfere with the anti Xa assay used to monitor UFH and LMWH. Performed By: #### L [id number] #### [facility] ([facility]) [address] [place] [address] HEPARIN UNFRACTIONATED (U/ML) IN PPP BY CHROMOGENIC METHOD 0.21 IU/mL Low 0.3-0.7 [facility] Comment on above: Result Comment: [place] roxaban and Apixaban will interfere with the anti Xa assay used to monitor UFH and LMWH. Performed By: #### L [id number] #### [facility] ([facility]) [address] [place] [address] CBCon 07-22-2023 Erythrocyte distribution width (RBC) [Ratio] 16.5 % High 11.5-15.0 [facility] Comment on above: Performed By: #### L [id number] #### [facility] ([facility]) [address] [place] [address] ERYTHROCYTE MEAN CORPUSCULAR HEMOGLOBIN CONCENTRATION (G/DL) BY AUTOMATED 32.0 g/dL Normal 32.0-35.0 [facility] Comment on above: Performed By: #### L [id number] #### [facility] [address] [place] [address] Hematocrit (Bld) [Volume fraction] 29.1 % Low 36.0-48.0 [facility] Comment on above: Performed By: #### L [id number] #### [facility] ([facility]) [address] [place] [address] Hemoglobin (Bld) [Mass/Vol] 9.3 g/dL Low 12.0-15.0 [facility] Comment on above: Performed By: #### L [id number] #### [facility] ([facility]) [address] [place] [address] MCH (RBC) [Entitic mass] 27.0 pg Normal 27.0-33.0 [facility] Comment on above: Performed By: #### L [id number] #### [facility] ([facility]) [address] [place] [address] MCV (RBC) [Entitic vol] 84.6 fL Normal 82.0-98.0 [facility] Comment on above: Performed By: #### L [id number] #### [facility] ([facility]) [address] [place] [address] PLATELETS (10*3/UL) IN BLOOD AUTOMATED COUNT 202 10*3/uL Normal 150-400 [facility] Comment on above: Performed By: #### L [id number] #### [facility] ([facility]) [address] [place] [address] RBC (Bld) [#/Vol] 3.44 10*6/uL Low 3.80-5.00 [facility] Comment on above: Performed By: #### L [id number] #### [facility] ([facility]) [address] [place] [address] WBC (Bld) [#/Vol] 6.43 10*3/uL Normal 4.00-10.60 [facility] Comment on above: Performed By: #### L [id number] #### [facility] ([facility]) [address] [place] [address] 30on 07-21-2023 30 Problem: Pain - Adul t Goal: Verbalizes/displays adequate comfort level or baseline comfort level Outcome: Progressing Flowsheets (Taken 07/21/2023739) Verbalizes/displays adequate comfort level or baseline comfort [...] and behaviors that affect risk of falls [place] fall precautions as indicated by assessment Educate [...] for the shift include VSS; safety Normal [facility] 30 The patient is Moderately Stable - [...] or at baseline Outcome: Not Progressing Normal [facility] ANTI-XA (HEPARIN LEVEL)on HEPARIN UNFRACTIONATED (U/ML) IN PPP BY CHROMOGENIC METHOD 0.14 IU/mL Invalid Interpretation Code 0.3-0.7 [facility] Comment on above: Result Comment: [place] roxaban and Apixaban will interfere with the anti Xa assay used to monitor UFH and LMWH. Performed By: #### L [id number] ####[facility] ([facility])[address] [place] [address] HEPARIN UNFRACTIONATED (U/ML) IN PPP BY CHROMOGENIC METHOD <0.10 Invalid Interpretation Code 0.3-0.7 [facility] Comment on above: Result Comment: [place] roxaban and Apixaban will interfere with the anti Xa assay used to monitor UFH and LMWH. Performed By: #### L [id number] #### [facility] ([facility]) [address] [place] [address] HEPARIN UNFRACTIONATED (U/ML) IN PPP BY CHROMOGENIC METHOD <0.10 Invalid Interpretation Code 0.3-0.7 [facility] Comment on above: Order Comment: Check anti-Xa level every 6 hours while on heparin infusion, or per protocol. Result Comment: [place] roxaban and Apixaban will interfere with the anti Xa assay used to monitor UFH and LMWH. Performed By: #### L [id number] #### [facility] ([facility]) [address] [place] [address] B-TYPE NATRIURETIC PEPTIDEon 07-21-2023 Natriuretic peptide B (Bld) [Mass/Vol] 841 pg/mL High 0-100 [facility] Comment on above: Performed By: #### L [id number] #### [facility] ([facility]) [address] [place] [address] COMPREHENSIVE METABOLIC PANE Oscar 07-21-2023 Albumin [Mass/Vol] 2.9 g/dL Low 3.5-5.7 [facility] Comment on above: Performed By: #### L [id number] #### [facility] ([facility]) [address] [place] [address] ALP [Catalytic activity/Vol] 97 U/L Normal 34-104 [facility] Comment on above: Performed By: #### L [id number] #### [facility] ([facility]) [address] [place] [address] ALT [Catalytic activity/Vol] 12 U/L Normal 7-52 [facility] Comment on above: Performed By: #### L [id number] #### [facility] ([facility]) [address] [place] [address] Anion gap [Moles/Vol] 11 mmol/L Normal 7-20 [facility] Comment on above: Performed By: #### L [id number] #### [facility] ([facility]) [address] [place] [address] AST [Catalytic activity/Vol] 21 U/L Normal 13-39 [facility] Comment on above: Performed By: #### L [id number] #### [facility] ([facility]) [address] [place] [address] Bilirubin [Mass/Vol] 0.6 mg/dL Normal 0.3-1.0 [facility] Comment on above: Performed By: #### L [id number] #### [facility] ([facility]) [address] [place] [address] Calcium [Mass/Vol] 9.7 mg/dL Normal 8.6-10.3 [facility] Comment on above: Performed By: #### L [id number] #### [facility] ([facility]) [address] [place] [address] Chloride [Moles/Vol] 108 mmol/L High 98-107 [facility] Comment on above: Performed By: #### L [id number] #### [facility] ([facility]) [address] [place] [address] CO2 [Moles/Vol] 23 mmol/L Normal 21-31 [facility] Comment on above: Performed By: #### L [id number] #### [facility] ([facility]) [address] [place] [address] Creatinine [Mass/Vol] 0.68 mg/dL Normal 0.60-1.20 [facility] Comment on above: Performed By: #### L [id number] #### [facility] ([facility]) [address] [place] [address] GLOMERULAR FILTRATION RATE ML/MIN/1.73 SQ M.PREDICTED 91.3 mL/min/1.73m*2 Normal >60.0 [facility] Comment on above: Result Comment: [facility]???s estimated glomerular filtration rate (eGFR) will no [...] individuals. Performed By: #### L [id number] #### [facility] ([facility]) [address] [place] [address] Glucose [Mass/Vol] 92 mg/dL Normal 70-100 [facility] Comment on above: Performed By: #### L [id number] #### [facility] ([facility]) [address] [place] [address] Potassium [Moles/Vol] 3.8 mmol/L Normal 3.5-5.1 [facility] Comment on above: Performed By: #### L [id number] #### [facility] ([facility] [address] [place] [address] Protein [Mass/Vol] 5.4 g/dL Low 6.0-8.3 [facility] Comment on above: Performed By: #### L [id number] #### [facility] ([facility]) [address] [place] [address] Sodium [Moles/Vol] 138 mmol/L Normal 136-145 [facility] Comment on above: Performed By: #### L [id number] #### [facility] ([facility] [address] [place] [address] Urea nitrogen [Mass/Vol] 19 mg/dL Normal 7-25 [facility] Comment on above: Performed By: #### L [id number] #### [facility] ([facility]) [address] [place] [address] UREA NITROGEN/CREATININE (MASS RATIO) IN SER/PLAS 27.9 Normal [facility] Comment on above: Performed By: #### L [id number] #### [facility] ([facility]) [address] [place] [address] HEMOGLOBIN AND HEMATOCRIT, B LOODon 07-21-2023 Hematocrit (Bld) [Volume fraction] 29.9 % Low 36.0-48.0 [facility] Comment on above: Performed By: #### L [id number] #### [facility] ([facility]) [address] [place] [address] Hemoglobin (Bld) [Mass/Vol] 9.5 g/dL Low 12.0-15.0 [facility] Comment on above: Performed By: #### L [id number] #### [facility] ([facility]) [address] [place] [address] MAGNESIUMon 07-21-2023 Magnesium [Mass/Vol] 1.5 mg/dL Low 1.9-2.7 [facility] Comment on above: Performed By: #### L [id number] ####[facility] ([facility])[address] [place] [address] T3, FREEon 07-21-2023 TRIIODOTHYRONINE (T3) FREE (PG/ML) IN SER/PLAS 3.7 pg/mL Normal 2.5-3.9 [facility] Comment on above: Performed By: #### L [id number] ####[facility] ([facility])[address] [place] [address] T4, FREEon 07-21-2023 THYROXINE (T4) FREE (NG/DL) IN SER/PLAS 1.14 ng/dL Normal 0.71-1.85 [facility] Comment on above: Performed By: #### L [id number] ####[facility] ([facility])[address] [place] [address] TROPONIN Ion 07-21-2023 Troponin I.cardiac [Mass/Vol] 0.04 ng/mL Normal 0.00-0.04 [facility] Comment on above: Performed By: #### L [id number] #### [facility] ([facility]) [address] [place] [address] Troponin I.cardiac [Mass/Vol] 0.05 ng/mL High 0.00-0.04 [facility] Comment on above: Performed By: #### L [id number] ####[facility] ([facility])[address] [place] [address] VITAMIN D 1,25 DIHYDROXYon 1 09-20-2022 VITAMIN D 1,25-DIHYDROXY 32.9 pg/mL Normal 19.9-79.3 [facility] Comment on above: Result Comment: INTE RPRETIVE INFORMATION: Vitamin D, 1,25-Dihydroxy This test is primarily indicated during patient evaluation for hypercalcemia and renal failure. A normal result does not rule out Vitamin D deficiency. The recommended test for diagnosing Vitamin D deficiency is Vitamin D 25-hydroxy. Performed By: [employer] [address] [place] [address] Journal Entry Audit Clerk: Zeus Ventura MD, PhD CLIA Number: [id number] Performed By: #### L [id number] ####[facility] (JONNY)[address] [place] [address] VITAMIN D 25 HYDROXYon 07-21 CALCIDIOL (25 [place] VITAMIN D3) (NG/ML) IN SER/PLAS 23.2 ng/mL Low 30.0-80.0 [facility] Comment on above: Result Comment: >80. 0 Toxicity possible Performed By: #### L [id number] #### [facility] ([facility]) [address] [place] [address] 30on 07-20-2023 30 Daily Case Managemen t Update Multidisciplinary rounds have been completed. End of shift note. 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 Heparin gtt. Cardiac Cath. AMITA. PT ordered; pending. OT recs Home. From Home. Diet: Dietary Orders (From admission, onward) Start Ordered 07/20/23 1513 Special Kitchen Request Once Comments: Chicken tenders [...] Reason for OT? Answer: fall 07/19/232117 Normal [facility] 30 Problem: Pain - Adul t Goal: Verbalizes/displays adequate comfort level or baseline comfort level Outcome: Progressing Flowsheets (Taken 07/20/2023699) Verbalizes/displays adequate comfort level or baseline comfort [...] and behaviors that affect risk of falls [place] fall precautions as indicated by assessment Educate patient/family on patient safety, including physical limitations Instruct patient to call for assistance with activity based on assessment Modify environment to reduce risk of injury Consider OT/PT consult to assist with strengthening/mobility Problem: Discharge Planning Goal: Discharge to home or other facility with appropriate resources Outcome: Progressing Flowsheets (Taken 07/20/2023699) Discharge to home or other facility with appropriate resources: Identify barriers to discharge with patient and caregiver Arrange for needed discharge resources and transportation as appropriate Identify discharge learning needs (meds, wound care, etc) Problem: Chronic Conditions and Co-morbidities Goal: Patient's chronic conditions and co-morbidity symptoms are monitored and maintained or improved Outcome: Progressing Flowsheets (Taken 07/20/2023 07) Care Plan - Patient's Chronic Conditions and [...] goals for the shift include VSS; safety [facility] Sariah 07-20-2023 ISHMAEL Patient: Darek Mejía Choose an anesthesia record [...] fellow and attending. Additional Equipment Requests Normal [facility] ANES Patient: Darek Mejía Choose an anesthesia [...] fellow and attending. Additional Equipment Requests Normal [facility] ANTI-XA (HEPARIN LEVEL)on HEPARIN UNFRACTIONATED (U/ML) IN PPP BY CHROMOGENIC METHOD <0.10 Invalid Interpretation Code 0.3-0.7 [facility] Comment on above: Order Comment: Check anti-Xa level every 6 hours while on heparin infusion, or per protocol. Result Comment: [place] roxaban and Apixaban will interfere with the anti Xa assay used to monitor UFH and LMWH. Performed By: #### L [id number] #### [facility] ([facility]) [address] [place] [address] CBCon 07-20-2023 Erythrocyte distribution width (RBC) [Ratio] 16.4 % High 11.5-15.0 [facility] Comment on above: Performed By: #### L [id number] #### [facility] ([facility]) [address] [place] [address] ERYTHROCYTE MEAN CORPUSCULAR HEMOGLOBIN CONCENTRATION (G/DL) BY AUTOMATED 32.2 g/dL Normal 32.0-35.0 [facility] Comment on above: Performed By: #### L [id number] #### [facility] ([facility]) [address] [place] [address] Hematocrit (Bld) [Volume fraction] 32.3 % Low 36.0-48.0 [facility] Comment on above: Performed By: #### L [id number] #### [facility] ([facility]) [address] [place] [address] Hemoglobin (Bld) [Mass/Vol] 10.4 g/dL Low 12.0-15.0 [facility] Comment on above: Performed By: #### L [id number] #### [facility] ([facility]) [address] [place] [address] MCH (RBC) [Entitic mass] 26.8 pg Low 27.0-33.0 [facility] Comment on above: Performed By: #### L [id number] #### [facility] ([facility]) [address] [place] [address] MCV (RBC) [Entitic vol] 83.2 fL Normal 82.0-98.0 [facility] Comment on above: Performed By: #### L [id number] #### [facility] ([facility]) [address] [place] [address] PLATELETS (10*3/UL) IN BLOOD AUTOMATED COUNT 262 10*3/uL Normal 150-400 [facility] Comment on above: Performed By: #### L [id number] #### [facility] ([facility]) [address] [place] [address] RBC (Bld) [#/Vol] 3.88 10*6/uL Normal 3.80-5.00 [facility] Comment on above: Performed By: #### L [id number] #### [facility] ([facility]) [address] [place] [address] WBC (Bld) [#/Vol] 5.76 10*3/uL Normal 4.00-10.60 [facility] Comment on above: Performed By: #### L [id number] #### [facility] [address] [place] [address] CONSULTon 07-20-2023 CONSULT --- Attestation signed by [...] CKMB, CKM (more content not included)... Normal [facility] HPon 07-20-2023 History Of Present Illness Darek [...] further evaluate symptoms Faith Hassan DO, MPH Property Handler [facility] Normal [facility] HP H&P reviewed. The patient was examined and there are no changes to the H&P. Normal [facility] ANTI-XA (HEPARIN LEVEL)on HEPARIN UNFRACTIONATED (U/ML) IN PPP BY CHROMOGENIC METHOD <0.10 Invalid Interpretation Code 0.3-0.7 [facility] Comment on above: Order Comment: Check anti-Xa level every 6 hours while on heparin infusion, or per protocol. Result Comment: [place] roxaban and Apixaban will interfere with the anti Xa assay used to monitor UFH and LMWH. Performed By: #### L [id number] #### [facility] ([facility]) [address] [address] APTTon 07-19-2023 ACTIVATED PARTIAL THROMBOPLASTIN TIME IN PPP BY COAGULATION ASSAY 29.1 Seconds Normal 25.0-35.0 [facility] Comment on above: Order Comment: Basel ine aPTT before initiating heparin infusion. Result Comment: Clin ical significance of the APTT is questionable in the presence of heparin. Performed By: #### L [id number] ####[facility] ([facility])[address] [place] [address] CBC WITH AUTO DIFFERENTIALon 07-19-2023 Basophils (Bld) [#/Vol] 0.07 10*3/uL Normal 0.00-0.20 [facility] Comment on above: Performed By: #### L [id number] #### [facility] ([facility]) [address] [place] [address] Basophils/100 WBC (Bld) 1.1 % High 0.0-1.0 [facility] Comment on above: Performed By: #### L [id number] #### [facility] ([facility]) [address] [place] [address] Eosinophils (Bld) [#/Vol] 0.10 10*3/uL Normal 0.00-0.50 [facility] Comment on above: Performed By: #### L [id number] #### [facility] ([facility]) [address] [place] [address] Eosinophils/100 WBC (Bld) 1.6 % Normal 0.0-6.0 [facility] Comment on above: Performed By: #### L [id number] #### [facility] ([facility]) [address] [facility] [place] [address] Erythrocyte distribution width (RBC) [Ratio] 16.4 % High 11.5-15.0 [facility] Comment on above: Performed By: #### L [id number] #### [facility] ([facility]) [address] [place] [address] ERYTHROCYTE MEAN CORPUSCULAR HEMOGLOBIN CONCENTRATION (G/DL) BY AUTOMATED 31.8 g/dL Low 32.0-35.0 [facility] Comment on above: Performed By: #### L [id number] #### [facility] ([facility]) [address] [place] [address] Hematocrit (Bld) [Volume fraction] 35.5 % Low 36.0-48.0 [facility] Comment on above: Performed By: #### L [id number] #### [facility] ([facility]) [address] [place] [address] Hemoglobin (Bld) [Mass/Vol] 11.3 g/dL Low 12.0-15.0 [facility] Comment on above: Performed By: #### L [id number] #### [facility] ([facility]) [address] [place] [address] Immature granulocytes (Bld) [#/Vol] 0.02 10*3/uL Normal 0.00-0.20 [facility] Comment on above: Performed By: #### L [id number] #### [facility] ([facility]) [address] [place] [address] Immature granulocytes/100 WBC (Bld) 0.3 % Normal 0.0-1.0 [facility] Comment on above: Performed By: #### L [id number] #### [facility] ([facility]) [address] [place] [address] Lymphocytes (Bld) [#/Vol] 1.76 10*3/uL Normal 1.20-4.00 [facility] Comment on above: Performed By: #### L [id number] #### [facility] ([facility]) [address] [place] [address] Lymphocytes/100 WBC (Bld) 28.5 % Normal 20.0-45.0 [facility] Comment on above: Performed By: #### L [id number] #### [facility] ([facility]) [address] [place] [address] MCH (RBC) [Entitic mass] 26.9 pg Low 27.0-33.0 [facility] Comment on above: Performed By: #### L [id number] #### [facility] ([facility]) [address] [place] [address] MCV (RBC) [Entitic vol] 84.5 fL Normal 82.0-98.0 [facility] Comment on above: Performed By: #### L [id number] #### [facility] ([facility]) [address] [place] [address] Monocytes (Bld) [#/Vol] 0.48 10*3/uL Normal 0.10-1.00 [facility] Comment on above: Performed By: #### L [id number] #### [facility] ([facility]) [address] [place] [address] Monocytes/100 WBC (Bld) 7.8 % Normal 5.0-12.0 [facility] Comment on above: Performed By: #### L [id number] #### [facility] ([facility]) [address] [place] [address] Neutrophils (Bld) [#/Vol] 3.74 10*3/uL Normal 1.60-7.60 [facility] Comment on above: Performed By: #### L [id number] #### [facility] ([facility]) [address] [place] [address] Neutrophils/100 WBC (Bld) 60.7 % Normal 40.0-72.0 [facility] Comment on above: Performed By: #### L [id number] #### [facility] ([facility]) [address] [place] [address] NRBC (PER 100 WBCS) BY AUTOMATED COUNT 0.0 % Normal 0 [facility] Comment on above: Performed By: #### L [id number] #### [facility] [address] [place] [address] PLATELETS (10*3/UL) IN BLOOD AUTOMATED COUNT 289 10*3/uL Normal 150-400 [facility] Comment on above: Performed By: #### L [id number] #### [facility] ([facility]) [address] [place] [address] RBC (Bld) [#/Vol] 4.20 10*6/uL Normal 3.80-5.00 [facility] Comment on above: Performed By: #### L [id number] #### [facility] ([facility]) [address] [place] [address] WBC (Bld) [#/Vol] 6.17 10*3/uL Normal 4.00-10.60 [facility] Comment on above: Performed By: #### L [id number] #### [facility] ([facility]) [address] [place] [address] COMPREHENSIVE METABOLIC PANE Oscar 07-19-2023 Albumin [Mass/Vol] 3.7 g/dL Normal 3.5-5.7 [facility] Comment on above: Performed By: #### L [id number] #### [facility] ([facility]) [address] [place] [address] ALP [Catalytic activity/Vol] 132 U/L High 34-104 [facility] Comment on above: Performed By: #### L [id number] #### [facility] ([facility]) [address] [place] [address] ALT [Catalytic activity/Vol] 17 U/L Normal 7-52 [facility] Comment on above: Performed By: #### L [id number] #### [facility] ([facility]) [address] [place] [address] Anion gap [Moles/Vol] 11 mmol/L Normal 7-20 [facility] Comment on above: Performed By: #### L [id number] #### [facility] ([facility]) [address] [place] [address] AST [Catalytic activity/Vol] 23 U/L Normal 13-39 [facility] Comment on above: Performed By: #### L [id number] #### [facility] [address] [place] [address] Bilirubin [Mass/Vol] 0.9 mg/dL Normal 0.3-1.0 [facility] Comment on above: Performed By: #### L [id number] #### [facility] ([facility]) [address] [place] [address] Calcium [Mass/Vol] 10.7 mg/dL High 8.6-10.3 [facility] Comment on above: Performed By: #### L [id number] #### [facility] ([facility]) [address] [place] [address] Chloride [Moles/Vol] 104 mmol/L Normal 98-107 [facility] Comment on above: Performed By: #### L [id number] #### [facility] ([facility]) [address] [place] [address] CO2 [Moles/Vol] 28 mmol/L Normal 21-31 [facility] Comment on above: Performed By: #### L [id number] #### [facility] ([facility]) [address] [place] [address] Creatinine [Mass/Vol] 0.66 mg/dL Normal 0.60-1.20 [facility] Comment on above: Performed By: #### L [id number] #### [facility] ([facility]) [address] [place] [address] GLOMERULAR FILTRATION RATE ML/MIN/1.73 SQ M.PREDICTED 92.0 mL/min/1.73m*2 Normal >60.0 [facility] Comment on above: Result Comment: The [facility]???s estimated glomerular filtration rate (eGFR) will no [...] individuals. Performed By: #### L [id number] #### [facility] ([facility]) [address] [place] [address] Glucose [Mass/Vol] 131 mg/dL High 70-100 [facility] Comment on above: Performed By: #### L [id number] #### [facility] ([facility]) [address] [place] [address] Potassium [Moles/Vol] 3.5 mmol/L Normal 3.5-5.1 [facility] Comment on above: Performed By: #### L [id number] #### [facility] ([facility]) [address] [place] [address] Protein [Mass/Vol] 6.8 g/dL Normal 6.0-8.3 [facility] Comment on above: Performed By: #### L [id number] #### [facility] ([facility]) [address] [place] [address] Sodium [Moles/Vol] 139 mmol/L Normal 136-145 [facility] Comment on above: Performed By: #### L [id number] #### [facility] ([facility]) [address] [place] [address] Urea nitrogen [Mass/Vol] 15 mg/dL Normal 7-25 [facility] Comment on above: Performed By: #### L [id number] #### [facility] ([facility]) [address] [place] [address] UREA NITROGEN/CREATININE (MASS RATIO) IN SER/PLAS 22.7 Normal [facility] Comment on above: Performed By: #### L [id number] #### [facility] ([facility]) [address] [place] [address] [facility] 07-19-2023 [facility] Cardiology Clinic Note Chief Complaint: Patient here [...] with ejection (more content not included)... Normal [facility] MAGNESIUMon 07-19-2023 Magnesium [Mass/Vol] 1.6 mg/dL Low 1.9-2.7 [facility] Comment on above: Performed By: #### L [id number] ####[facility] (BEAKER)[address] [place] [address] Office Visiton 07-19-2023 Follow-up visit [id number] Darek Mejía 1950 F Date Provider Department [place] 07/19/2023 Areli-OPAL CARVALHO MARIANA Roy Family History Problem Relation Age of Onset Coronary artery disease Father Diabetes Father Family Status - Relation Status Age at Father Level of Service:72284 CO OFFICE/OUTPATIENT ESTABLISHED HIGH MDM 40-54 MIN Normal [facility] T4, FREEon 07-19-2023 THYROXINE (T4) FREE (NG/DL) IN SER/PLAS 1.31 ng/dL Normal 0.71-1.85 [facility] Comment on above: Performed By: #### L [id number] #### [facility] ([facility]) [address] [place] [address] TSH3 REFLEX TO FT4on 023 THYROTROPIN (MIU/L) IN SER/PLAS BY DETECTION LIMIT <= 0.05 MIU/L 0.06 mIU/L Low 0.34-5.60 [facility] Comment on above: Performed By: #### L [id number] #### [facility] (JONNY) [address] [place] [address] 36on 07-02-2023 36 Sandy just did patien t's echo. She came over to the office to make us aware that she sounded like she was in afib, and patient didn't recall ever being told she had this. She did ECG. I have assigned it to you in media planner. Please advise. Thanks. [facility] Office Visiton 04-23-2023 Follow-up visit [id number] Darek Mejía 1950 F Date Provider Department Center 04/23/2023 OPAL VIVEROS Family History Problem Relation Age of Onset Coronary artery disease Father Diabetes Father Family Status - Relation Status Age at Father Level of Service:32251 CO OFFICE/OUTPATIENT ESTABLISHED MOD MDM 30-39 MIN [facility] Office Visiton 01-31-2023 Follow-up visit [id number] Darek Mejía 1950 F Date Provider Department Center 01/31/2023 HAWA BACA Family History Problem Relation Age of Onset Coronary artery disease Father Diabetes Father Family Status - Relation Status Age at Father Level of Service:01181 CO OFFICE/OUTPATIENT ESTABLISHED MOD MDM 30-39 MIN [facility] 36on 01-11-2023 36 I am putting in a script for aldactone, then she needs BMP in 1 week to assess renal function and potassium level. Have her f/U in 2-4 weeks to review b/p please [facility] Orders Onlyon 01-11-2023 Orders Only [id number] Darek Mejía 1950 F Date Provider Department Center 01/11/2023 HAWA BACA. Family History Problem Relation Age of Onset Coronary artery disease Father Diabetes Father Family Status - Relation Status Age at Father [facility] 36on 01-10-2023 36 . [facility] Office Visiton 12-21-2022 Follow-up visit [id number] Darek Mejía 1950 F Date Provider Department Center 12/21/2022 HAWA BACA [facility] Family History Problem Relation Age of Onset Coronary artery disease Father Diabetes Father Family Status - Relation Status Age at Father Level of Service:90412 CO OFFICE/OUTPATIENT ESTABLISHED MOD MDM 30-39 MIN Reason for Visit and Comments: Coronary Artery Disease [187] Congestive Heart Failure [127] Hypertension [639346] Normal [facility] FREE T3on 11-30-2022 FREE T3 2.19 pg/mlL Normal 2.18-3.98 [facility] Comment on above: Performed By: #### T 4, FT3, TSH #### [facility] [address] [place] [address] Dr. Rich Pham T4on 11-30-2022 T4 [Mass/Vol] 11.10 ug/dL Normal 4.80-13.90 [facility] Comment on above: Performed By: #### T 4, FT3, TSH #### [facility] [address] [place] [address] Dr. Rich Pham TSHon 11-30-2022 TSH 0.525 uIU/mL Normal 0.358-3.740 [facility] Comment on above: Performed By: #### T 4, FT3, TSH #### [facility] [address] [place] [address] Dr. Rich Pham ANES POSTPROC EVALon 023 ANES POSTPROC EVAL HNO ID: [id number] Author: David Dunn II, DO Service: Anesthesiology Author Type: Anesthesiologist Type: Anesthesia Postprocedure Evaluation Filed: 11/01/2022 12:35 PM Note Text: POST ANESTHESIA EVALUATION NOTE : 1950 Procedure Summary Date: 11/01/22 Room / Location: [place] [address] / [facility] Anesthesia Start: 1109 Anesthesia Stop: 113 Procedures: PHACOEMULSIFICATION CATARACT IMPLANT INTRAOCULAR LENS W/O [...] November 01, 2022 TIME: 12:35 PM CSN: [id number] Normal [facility] ANES PRE-OPon 11-01-2022 ANES PRE-OP HNO ID: [id number] Author: David Dunn II, DO Service: Anesthesiology Author Type: Anesthesiologist Type: Anesthesia Preprocedure Evaluation Filed: 11/01/2022 10:15 AM Note Text: ANESTHESIOLOGY DAY OF SURGERY NOTE : 1950 Procedure Information Date/Time: 11/01/22 1100 Procedures: PHACOEMULSIFICATION CATARACT IMPLANT INTRAOCULAR LENS W/O ENDOSCOPIC CYCLOPHOTOCOAGULATION (Left: Eye) OPHTHALMIC BIOMETRY BY PARTIAL COHERENCE INTERFEROMETRY W/INTRAOCULAR LENS POWER CALCULATION (Left: Eye) Location: [address] Surgeons: Aleksandar Wilson V, MD Estimated body mass index is 21.31 kg/m? as calculated from the following: Height as of 10/30/22: 167.6 cm (5' 6 ). Weight as of 10/30/22: 59.9 kg (132 lb). 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 CONTEMPORARY OR MODERN DANCER: None Procedure(s) (LRB): PHACOEMULSIFICATION CATARACT IMPLANT INTRAOCULAR [...] corneal incision was created temporally with a Seneca blade then a 2.4 mm keratome. The anterior chamber was reformed with Viscoat, after which the anterior capsule was opened centrally. Using the Utrata forceps a continuous curvilinear capsulorrhexis of approximately 5.5 mm round was created. Gentle hydrodissection was accomplished using preservative-free lidocaine on a 27-gauge cannula. Using the Renny phacoemulsification unit with the MEMSIC curved tip, the anterior chamber was entered [...] Implant Name Type Inv. Item Serial No. Respiratory Therapy Manager Lot No. LRB No. Used Action Model No. LENS IOL 0D +21 [employer] - [id number] Intraocular Lens LENS IOL 0D +21 [employer] [id number] [employer] Left 1 Implanted [id number] [...] 11:26 AM - Comanage with Dr Mccollum; [facility] POD #1 Aleksandar WILSON MD Normal [facility] FREE T3on 10-30-2022 FREE T3 2.77 pg/mlL Normal 2.18-3.98 [facility] Comment on above: Performed By: #### F T3, TSH, BNP, T4 #### [facility] [address] [place] [address] Dr. Rich Pham HISTORY PHYSICALon HISTORY PHYSICAL HNO ID: [id number] Author: Apple Gomez APRN.OIL DISPENSER Service: ? Author Type: Nurse Practitioner Type: [...] ACTIVE PROBLEM LIST Smoking Addiction Atherosclerosis of [place] Coronary Artery of [place] Heart Without Angina Pectoris Mild Left Ventricular Systolic Dysfunction Primary Hypertension Coronary Artery Disease Involving Coronary Bypass Graft of [place] Heart With Angina Pectoris (Hcc) Atelectasis Hypervolemia [...] W DIL OF URETHRAL STRICT HEART CATHETERIZATION 2003 at [facility] KIDNEY STONE SURGERY HX MASTECTOMY [...] fevers. Neuro: No history of TIA's, stroke, HEAD SHIPPER tumor, impaired sensorium, (more content not included)... Normal [facility] T4on 10-30-2022 T4 [Mass/Vol] 3.40 ug/dL Critically low 4.80-13.90 [facility] Comment on above: Performed By: #### F T3, TSH, BNP, T4 #### [facility] [address] [place], [place] [address] Dr. Rich Pham TSHon 10-30-2022 TSH 2.102 uIU/mL Normal 0.358-3.[address] [facility] Comment on above: Performed By: #### F T3, TSH, BNP, T4 #### [facility] [address] [place], [place] [address] Dr. Rich Pham [facility] 10-18-2022 [facility] (NAZLININanigans) DAREK MEJÍA ([id number]) 1950 F Date Time Provider Department 10/18/22 PACC ROCKY PACHECO During your visit today, we recorded the following information about you: Haven MorneoFELTON 10/18/2022 1:19 PM Signed Called patient to find out if she was coming in for PACC appointment. Patient states she called and canceled appointment earlier in the day. I gave her Dr. Wilson's schedulers contact number to reschedule. Please assist patient. Haven FELTON Moreno October 18, 2022 1:18 PM Rayna Martin 10/18/2022 1:30 PM Signed Called and spoke [...] Resolved Smoking addiction [F17.200] 06/22/2015 Atherosclerosis of eagle coronary artery of na*06/22/2015 Mild left ventricular [...] Status:Closed by HAVEN MORENO on 10/18/22 Normal [facility] FREE T3on 08-30-2022 FREE T3 1.95 pg/mlL Critically low 2.18-3.[address] [facility] Comment on above: Performed By: #### F T3, TSH, BNP, T4 #### [facility] [address] [place] [address] Dr. Rich Pham T4on 08-30-2022 T4 [Mass/Vol] 8.00 ug/dL Normal 4.80-13.[address] [facility] Comment on above: Performed By: #### F T3, TSH, BNP, T4 #### [facility] [address] [place] [address] [address] Rich Pham TSHon 08-30-2022 TSH 3.033 uIU/mL Normal 0.358-3.[address] [facility] Comment on above: Performed By: #### F T3, TSH, BNP, T4 #### [facility] [address] [place] [address] Dr. Rich Pham ECHOCARDIO M/2D COMPLETEon 1 10-17-2021 ECHOCARDIO M/2D COMPLETE Patient: DAREK MEJÍA Exam Date: 08/16/2022 : 1950 Gender:F Ordering : HAWA RUSH Admission #: [id number] Family : DR KAYLEIGH GAY . Order #: [id number] CLICK HERE TO VIEW EXAM ECHOCARDIOGRAM REPORT [...] Opal Carvalho M.D. on 08/18/2022 at 16:30 [facility] BNPon 07-24-2022 Natriuretic peptide B (Bld) [Mass/Vol] 1535.0 pg/mL Critically high <=900.0 [facility] Comment on above: Performed By: #### F T3, TSH, BNP, T4 #### [facility] [address] [place] [address] Dr. Rich Pham FREE T3on 07-24-2022 FREE T3 1.90 pg/mlL Critically low 2.18-3.98 [facility] Comment on above: Performed By: #### F T3, TSH, BNP, T4 #### [facility] [address] [place] [address] Dr. Rich Pham T4on 07-24-2022 T4 [Mass/Vol] 9.10 ug/dL Normal 4.80-13.[address] [facility] Comment on above: Performed By: #### F T3, TSH, BNP, T4 #### [facility] [address] [place] [address] Dr. Rich Pham TSHon 07-24-2022 TSH 1.057 uIU/mL Normal 0.358-3.[address] [facility] Comment on above: Performed By: #### F T3, TSH, BNP, T4 #### [facility] [address] [place] [address] Dr. Rich Pham INSULINon 06-20-2022 Insulin 7.0 uIU/mL Normal 2.6-24.9 [facility] Comment on above: Performed By: #### F T3, TSH, BNP, T4 #### [facility] [address] [place] [address] Dr. Rich Pham BNPon 06-19-2022 Natriuretic peptide B (Bld) [Mass/Vol] 962.0 pg/mL Critically high <=900.0 [facility] Comment on above: Performed By: #### F T3, TSH, BNP, T4 #### [facility] [address] [place] [address] Dr. Rich Pham CBC AUTO DIFFon 06-19-2022 BASO # 0.1 103/ul Normal 0.0-0.1 [facility] Comment on above: Performed By: #### F T3, TSH, BNP, T4 #### [facility] [address] [place] [address] Dr. Rich Pham Basophils/100 WBC (Bld) 1.3 % Normal 0.2-2.0 [facility] Comment on above: Performed By: #### F T3, TSH, BNP, T4 #### [facility] [address] [place] [address] Dr. Rich Pham EO # 0.1 103/ul Normal 0.0-0.7 [facility] Comment on above: Performed By: #### F T3, TSH, BNP, T4 #### [facility] [address] [place] [address] Dr. Rich Pham Eosinophils/100 WBC (Bld) 1.9 % Normal 0.9-7.0 [facility] Comment on above: Performed By: #### F T3, TSH, BNP, T4 #### [facility] [address] [place] [address] Dr. Rich Pham Erythrocyte distribution width (RBC) [Ratio] 13.7 % Normal 11.0-15.0 [facility] Comment on above: Performed By: #### F T3, TSH, BNP, T4 #### [facility] [address] [place] [address] Dr. Rich Pham Hematocrit (Bld) [Volume fraction] 39.5 % Normal 36.0-48.0 [facility] Comment on above: Performed By: #### F T3, TSH, BNP, T4 #### [facility] [address] [place] [address] Dr. Rich Pham Hemoglobin (Bld) [Mass/Vol] 12.7 g/dL Normal 12.0-16.0 [facility] Comment on above: Performed By: #### F T3, TSH, BNP, T4 #### [facility] [address] [place] [address] Dr. Rich Pham IG # 0.03 10e3/ul Normal 0.00-0.03 [facility] Comment on above: Performed By: #### F T3, TSH, BNP, T4 #### [facility] [address] [place] [address] Dr. Rich Pham IG % 0.4 % Normal 0.0-0.5 [facility] Comment on above: Performed By: #### F T3, TSH, BNP, T4 #### [facility] [address] [place] [address] Dr. Rich Pham LYMPH # 2.5 103/ul Normal 1.2-3.8 [facility] Comment on above: Performed By: #### F T3, TSH, BNP, T4 #### [facility] [address] [place] [address] Dr. Rich Pham Lymphocytes/100 WBC (Bld) 32.8 % Normal 20.5-60.0 [facility] Comment on above: Performed By: #### F T3, TSH, BNP, T4 #### [facility] [address] [place] [address] Dr. Rich Pham MANUAL DIFF REQ NO Normal [facility] Comment on above: Performed By: #### F T3, TSH, BNP, T4 #### [facility] [address] [place] [address] Dr. Rich Pham MCH (RBC) [Entitic mass] 28.5 pg Normal 26.7-34.0 [facility] Comment on above: Performed By: #### F T3, TSH, BNP, T4 #### [facility] [address] [place] [address] Dr. Rich Pham MCHC (RBC) [Mass/Vol] 32.2 g/dL Normal 29.9-35.2 [facility] Comment on above: Performed By: #### F T3, TSH, BNP, T4 #### [facility] [address] [place] [address] Dr. Rich Pham MCV (RBC) [Entitic vol] 88.6 fL Normal 81.0-99.0 [facility] Comment on above: Performed By: #### F T3, TSH, BNP, T4 #### [facility] [address] [place] [address] Dr. Rich Pham MONO # 0.6 103/ul Normal 0.3-0.8 [facility] Comment on above: Performed By: #### F T3, TSH, BNP, T4 #### [facility] [address] [place] [address] [address] Rich Pham Monocytes/100 WBC (Bld) 7.6 % Normal 1.7-12.0 [facility] Comment on above: Performed By: #### F T3, TSH, BNP, T4 #### [facility] [address] [place] [address] Dr. Rich Pham NEUT # 4.2 103/ul Normal 1.4-6.5 [facility] Comment on above: Performed By: #### F T3, TSH, BNP, T4 #### [facility] [address] [place] [address] Dr. Rich Pham Neutrophils/100 WBC (Bld) 56.0 % Normal 43.0-75.0 [facility] Comment on above: Performed By: #### F T3, TSH, BNP, T4 #### [facility] [address] [place] [address] Dr. Rich Pham Platelet mean volume (Bld) [Entitic vol] 10.4 fL Normal 9.5-13.5 [facility] Comment on above: Performed By: #### F T3, TSH, BNP, T4 #### [facility] [address] [place] [address] Dr. Rich Pham PLT 253 103/ul Normal 150-450 [facility] Comment on above: Performed By: #### F T3, TSH, BNP, T4 #### [facility] [address] [place] [address] Dr. Rich Pham RBC 4.46 106/ul Normal 4.20-5.40 [facility] Comment on above: Performed By: #### F T3, TSH, BNP, T4 #### [facility] [address] [place] [address] Dr. Rich Pham WBC 7.5 103/ul Normal 4.0-11.0 [facility] Comment on above: Performed By: #### F T3, TSH, BNP, T4 #### [facility] [address] [place] [address] LUNG CANCER SCREENINGon 1 0-172022 CT LUNG CANCER SCREENING EXAMINATION: CT LUNG [...] by: VASU EVANS Date: 2022-06-19 21:05 Normal [facility] FREE THYROXINE INDEX T7on FTI 2.24 Normal 1.30-4.50 [facility] Comment on above: Performed By: #### F T3, TSH, BNP, T4 #### [facility] [address] [place] [address] [address] Rich Pham T3U 33.0 % Normal 30.0-39.0 [facility] Comment on above: Performed By: #### F T3, TSH, BNP, T4 #### [facility] [address] [place], [place] [address] Dr. Rich Pham T4 [Mass/Vol] 6.80 ug/dL Normal 4.80-13.90 [facility] Comment on above: Performed By: #### F T3, TSH, BNP, T4 #### [facility] [address] [place], [place] [address] Dr. Rich Pham GLYCOHEMOGLOBIN A1Con 2021 ADA RECOMMENDATION SEE BELOW Normal [facility] Comment on above: Result Comment: ADA RECOMMENDED LIMIT 4.0 - 6.0 ADA THERAPEUTIC TARGET < 7.0 ACTION SUGGESTED > 7.0 Performed By: #### F T3, TSH, BNP, T4 #### [facility] [address] [address] [address] Rich Pham Glucose [Mass/Vol] 117 mg/dL Normal [facility] Comment on above: Performed By: #### F T3, TSH, BNP, T4 #### [facility] [address] [address] [address] Rich Pham HbA1c (Bld) [Mass fraction] 5.7 % Normal 4.5-6.2 [facility] Comment on above: Performed By: #### F T3, TSH, BNP, T4 #### [facility] [address] [address] [address] Rich Pham IRONon 06-19-2022 Iron [Mass/Vol] 50.0 ug/dL Normal 50.0-170.0 [facility] Comment on above: Performed By: #### I IAM HARO #### [facility] [address] [place] [address] Dr. Rich Pham LIPID PROFILEon 06-19-2022 CHOL-HDL RATIO NORM SEE BELOW Normal [facility] Comment on above: Result Comment: 3.3 - 4.4 LOW RISK 4.4 - 7.1 AVERAGE RISK 7.1 - 11.0 MODERATE RISK >11.0 HIGH RISK Performed By: #### F T3, TSH, BNP, T4 #### [facility] [address] [address] [address] Rich Pham Cholesterol [Mass/Vol] 142 mg/dL Normal <=200 [facility] Comment on above: Performed By: #### F T3, TSH, BNP, T4 #### [facility] [address] [address] [address] Rich Pham Cholesterol in HDL [Mass/Vol] 52 mg/dL Normal 40-60 [facility] Comment on above: Performed By: #### F T3, TSH, BNP, T4 #### [facility] [address] [address] [address] Rich Pham Cholesterol in LDL [Mass/Vol] 78.8 mg/dL Normal [facility] Comment on above: Performed By: #### F T3, TSH, BNP, T4 #### [facility] [address] [address] [address] Rich Pham Cholesterol.total/Ch olesterol in HDL [Mass ratio] 2.7 {ratio} Normal [facility] Comment on above: Performed By: #### F T3, TSH, BNP, T4 #### [facility] [address] [address] [address] Rich Pham HDL NORMAL > or = 60 mg/dl - LO W CARDIOVASCULAR RISK <40 mg/dl - HIGH CARDIOVASCULAR RISK Normal [facility] Comment on above: Performed By: #### F T3, TSH, BNP, T4 #### [facility] [address] [address] [address] Rich Pham LDL CALC NORMAL SEE BELOW Normal [facility] Comment on above: Result Comment: <100 mg/dl OPTIMAL 100 - 129 mg/dl NEAR OR ABOVE OPTIMAL 130 - 159 mg/dl BORDERLINE HIGH 160 - 189 mg/dl HIGH >190 mg/dl VERY HIGH Performed By: #### F T3, TSH, BNP, T4 #### [facility] [address] [address] [address] Rich Pham Triglyceride [Mass/Vol] 56 mg/dL Normal <=150 [facility] Comment on above: Performed By: #### F T3, TSH, BNP, T4 #### [facility] [address] [address] [address] Rich Pham VLDL CALC 11.2 mg/dL Normal [facility] Comment on above: Performed By: #### F T3, TSH, BNP, T4 #### [facility] [address] [address] [address] Rich Pham PROF 14(COMP METB)on 022 Albumin [Mass/Vol] 3.5 g/dL Normal 3.4-5.0 [facility] Comment on above: Performed By: #### F T3, TSH, BNP, T4 #### [facility] [address] [place] [address] Dr. Rich Pham Albumin/Globulin [Mass ratio] 0.9 {ratio} Normal [facility] Comment on above: Performed By: #### F T3, TSH, BNP, T4 #### [facility] [address] [place] [address] Dr. Rich Pham ALP [Catalytic activity/Vol] 95 U/L Normal 46-116 [facility] Comment on above: Performed By: #### F T3, TSH, BNP, T4 #### [facility] [address] [place] [address] Dr. Rich Pham ALT [Catalytic activity/Vol] 22 U/L Normal 14-59 [facility] Comment on above: Performed By: #### F T3, TSH, BNP, T4 #### [facility] [address] [place] [address] Dr. Rich Pham Anion gap [Moles/Vol] 11.3 mmol/L Normal [facility] Comment on above: Performed By: #### F T3, TSH, BNP, T4 #### [facility] [address] [place] [address] Dr. Rich Pham AST [Catalytic activity/Vol] 21 U/L Normal 15-37 [facility] Comment on above: Performed By: #### F T3, TSH, BNP, T4 #### [facility] [address] [place] [address] Dr. Rich Pham Bilirubin [Mass/Vol] 0.4 mg/dL Normal 0.2-1.0 [facility] Comment on above: Performed By: #### F T3, TSH, BNP, T4 #### [facility] [address] [place] [address] Dr. Rich Pham Calcium [Mass/Vol] 10.4 mg/dL Critically high 8.5-10.1 [facility] Comment on above: Performed By: #### F T3, TSH, BNP, T4 #### [facility] [address] [place] [address] Dr. Rich Pham Chloride [Moles/Vol] 105 mmol/L Normal 98-107 [facility] Comment on above: Performed By: #### F T3, TSH, BNP, T4 #### [facility] [address] [address] [address] Rich Pham CO2 [Moles/Vol] 27.8 mmol/L Normal 21.0-32.0 [facility] Comment on above: Performed By: #### F T3, TSH, BNP, T4 #### [facility] [address] [place] [address] Dr. Rich Pham Creatinine [Mass/Vol] 0.94 mg/dL Normal 0.55-1.02 [facility] Comment on above: Performed By: #### F T3, TSH, BNP, T4 #### [facility] [address] [place] [address] Dr. Rich Pham EGFR-AF SCOTTISH >60 Normal >=60 [facility] Comment on above: Performed By: #### F T3, TSH, BNP, T4 #### [facility] [address] [place] [address] Dr. Rich Pham EGFR-NON AF SCOTTISH 58 mL/min/1.73m2 Critically low >=60 [facility] Comment on above: Performed By: #### F T3, TSH, BNP, T4 #### [facility] [address] [place] [address] Dr. Rcih Pham Globulin (S) [Mass/Vol] 3.9 g/dL Normal [facility] Comment on above: Performed By: #### F T3, TSH, BNP, T4 #### [facility] [address] [address] [address] Rich Pham Glucose [Mass/Vol] 94 mg/dL Normal 74-106 [facility] Comment on above: Performed By: #### F T3, TSH, BNP, T4 #### [facility] [address] [place] [address] Dr. Rich Pham Potassium [Moles/Vol] 4.1 mmol/L Normal 3.5-5.1 [facility] Comment on above: Performed By: #### F T3, TSH, BNP, T4 #### [facility] [address] [place] [address] Dr. Rich Pham Protein [Mass/Vol] 7.4 g/dL Normal 6.4-8.2 [facility] Comment on above: Performed By: #### F T3, TSH, BNP, T4 #### [facility] [address] [place] [address] Dr. Rich Pham Sodium [Moles/Vol] 140 mmol/L Normal 136-145 [facility] Comment on above: Performed By: #### F T3, TSH, BNP, T4 #### [facility] [address] [place] [address] Dr. Rich Pham Urea nitrogen [Mass/Vol] 15.0 mg/dL Normal 7.0-18.0 [facility] Comment on above: Performed By: #### F T3, TSH, BNP, T4 #### [facility] [address] [place] [address] Dr. Rich Pham Urea nitrogen/Creatinine [Mass ratio] 16.0 mg/mg Normal [facility] Comment on above: Performed By: #### F T3, TSH, BNP, T4 #### [facility] [address] [place] [address] Dr. Rich Pham TSHon 06-19-2022 TSH 6.083 uIU/mL Critically high 0.358-3.740 [facility] Comment on above: Performed By: #### F T3, TSH, BNP, T4 #### [facility] [address] [place] [address] Dr. Rich Pham VITAMIN D 25 OHon 06-19-2022 VIT D 25-OH 41.3 ng/mL Normal [facility] Comment on above: Performed By: #### F T3, TSH, BNP, T4 #### [facility] [address] [place] [address] Dr. Rich Pham VIT D RANGES SEE BELOW Normal [facility] Comment on above: Result Comment: <20 ng/mL Vit D deficient 20 - <30 ng/mL Vit D insufficient 30 - 100 ng/mL Vit D sufficient >100 ng/mL Potential Toxicity Performed By: #### F T3, TSH, BNP, T4 #### [facility] [address] [address] [address] Rich Pham PROF CHEM 8 (BAS METB)on Anion gap [Moles/Vol] 11.9 mmol/L Normal [facility] Comment on above: Performed By: #### F T3, TSH, BNP, T4 #### [facility] [address] [place] [address] Dr. Rich Pham Calcium [Mass/Vol] 9.9 mg/dL Normal 8.5-10.1 [facility] Comment on above: Performed By: #### F T3, TSH, BNP, T4 #### [facility] [address] [place] [address] Dr. Rich Pham Chloride [Moles/Vol] 101 mmol/L Normal 98-107 [facility] Comment on above: Performed By: #### F T3, TSH, BNP, T4 #### [facility] [address] [place] [address] Dr. Rich Pham CO2 [Moles/Vol] 30.0 mmol/L Normal 21.0-32.0 [facility] Comment on above: Performed By: #### F T3, TSH, BNP, T4 #### [facility] [address] [place] [address] Dr. Rich Pham Creatinine [Mass/Vol] 1.10 mg/dL Critically high 0.55-1.02 [facility] Comment on above: Performed By: #### F T3, TSH, BNP, T4 #### [facility] [address] [place] [address] Dr. Rich Pham EGFR-AF SCOTTISH 59 mL/min/1.73m2 Critically low >=60 [facility] Comment on above: Performed By: #### F T3, TSH, BNP, T4 #### [facility] [address] [place] [address] Dr. Rich Pham EGFR-NON AF SCOTTISH 49 mL/min/1.73m2 Critically low >=60 [facility] Comment on above: Performed By: #### F T3, TSH, BNP, T4 #### [facility] [address] [place] [address] Dr. Rich Pham Glucose [Mass/Vol] 115 mg/dL Critically high 74-106 [facility] Comment on above: Performed By: #### F T3, TSH, BNP, T4 #### [facility] [address] [place] [address] Dr. Rich Pham Potassium [Moles/Vol] 3.9 mmol/L Normal 3.5-5.1 [facility] Comment on above: Performed By: #### F T3, TSH, BNP, T4 #### [facility] [address] [place] [address] Dr. Rich Pham Sodium [Moles/Vol] 139 mmol/L Normal 136-145 [facility] Comment on above: Performed By: #### F T3, TSH, BNP, T4 #### [facility] [address] [place] [address] Dr. Rich Pham Urea nitrogen [Mass/Vol] 15.0 mg/dL Normal 7.0-18.0 [facility] Comment on above: Performed By: #### F T3, TSH, BNP, T4 #### [facility] [address] [place] [address] Dr. Rich Pham Urea nitrogen/Creatinine [Mass ratio] 13.6 mg/mg Normal [facility] Comment on above: Performed By: #### F T3, TSH, BNP, T4 #### [facility] [address] [place] [address] Dr. Rich Pham FLUORO FOR SURGICAL PROCEDUR [...] Juvenal Cagle MD 04/10/19 Final result Normal [facility] Surgical Specimenon 04-10-20 Surgical Specimen [facility] [address] [place], [place] [id number] FINAL SURGICAL PATHOLOGY REPORT Patient Name: DAREK MEJÍA Accession No: [id number] Age Sex: 1950 [facility] Account No: [id number] Collected: 04/10/2019 Med Rec No: [id number] Received: 04/10/2019 Attend Phys: ESTEBAN LÓPEZ Completed: 04/15/2019 Perform Phys: ESTEBAN LÓPEZ FINAL DIAGNOSIS: DISK TISSUE- DISK CARTILAGE WITH MARKED DEGENERATIVE CHANGES. FRAGMENTS OF BONE, MINUTE AREA SHOWING NORMAL CELLULAR BONE MARROW INCLUDING MEGAKARYOCYTES. SYNOVIAL TISSUE WITH REACTIVE CHANGES. SIVES/SIVES CLINICAL INFORMATION: Disk herniation, radiculopathy. SPECIMEN: Disc GROSS DESCRIPTION: The specimen container is labeled with the patient's name and designated spine . In formalin are multiple irregular rubbery and firm fragments of goss-red tissue measuring in aggregate 3 x 2.5 x 0.4 cm. The majority of tissue is wrapped and submitted in one cassette after decalcification. JAZZY/CHRISTY CPT: 16685 X1 67836 X1 MICHELLE PEREZ M.D. 04/15/2019 Electronically signed out by Page 1 of 1 [facility] Comment on above: Performed By: #### S UR #### [id number] Type and Screen Capture 3 sc rn cellon 04-10-2019 Type and Screen Capture 3 scrn cell PATIENT: MICAELA OSWALD LOC: [facility] BILL# : [id number] : 1950 SEX: F ORDERED BY: DAVIN MERCEDES ORDERED : 04/10/2019 06:22 COLLECTED: 04/10/2019 07:21 ORDER : [id number] RECEIVED : 04/10/2019 07:21 --------- TEST NAME RESULT UNITS RANGES ABN FL ST ABORH Capture A POS F Antibody 3 Cell Scrn Captu NEG F -------- Normal [facility] Comment on above: Performed By: #### T S3C #### [facility] [address] [place] [address] CARDIAC STRESS TESTon 2018 CARDIAC STRESS TEST [address] [address] CARDIAC STRESS TEST PATIENT NAME: DAREK MEJÍA : 1950 MED REC NO: [id number] ROOM: ACCOUNT NO: [id number] ADMIT DATE: 03/31/2019 PROVIDER: Roger Mcdermott DO CARDIOVASCULAR DIAGNOSTIC DEPARTMENT DATE OF STUDY: [...] ischemia. 2. Normal left ventricular systolic function. DO Minda WHELAN: 04/02/2019 #14:19:36 [id number] Doc#: [id number] CC: [facility] Coding Summary.on 01-30-2019 Coding Summary. 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 However, the narrative phrase printed from the coding software may appear abbreviated, or result in slightly different terminology. Coded By: Linh Devlin CphT Date Saved: 01/30/2019 10:45 am [facility] Coding Summary.on 01-29-2019 Coding Summary. CODING DATE: [facility] STATUS: Home (Routine DC) PAYOR: Medicare APC DESCRIPTION 5442 Level 2 Nerve Injections ADMIT DX: REASON FOR VISIT DX: M54.12 Radiculopathy, cervical region FINAL DX: PRINCIPAL: M54.12 Radiculopathy, cervical region SECONDARY: F17.210 Nicotine dependence, cigarettes, uncomplicated Z79.82 intermediate (current) use of aspirin Z95.1 Presence of aortocoronary bypass graft PYMT PROC APC STAT DESCRIPTION DOCTOR NAME DATE NOTE: The code number assigned matches the documented diagnosis and / or procedure in the patient's chart. However, the narrative phrase printed from the coding software may appear abbreviated, or result in slightly different terminology. Coded By: Maria Teresa Velasquez Date Saved: 01/29/2019 08:16 am [facility] Main OR Intraoperative Recor don 01-28-2019 Main OR Intraoperative Record IntraOp Document Type FTPM Summary Primary Physician: Cain Rowley MD Finalized Date/Time: 01/28/19 07:58:26 Pt. Name: DAREK MEJÍA /Sex: 1950 Female Med Rec #: [id number] Physician: Cain Rowley MD Financial #: [id number] Pt. Type: P Room/Bed: / Admit/Disch: 01/28/19 06:52:45 - Institution: Case Times FTPM Entry 1 Patient Times In Room 01/28/19 07:53:00 Out Room 01/28/19 08:00:00 Procedure Times Start 01/28/19 07:56:00 Stop 01/28/19 07:58:00 Anesthesia Times Start 01/28/19 07:53:00 Stop 01/28/19 08:00:00 Last Modified By: Nettie Guthrie RN 01/28/19 07:58:17 Case Attendance FTPM Entry 1 Entry 2 Entry 3 Case Attendee Alysia Gustafson DO, Rik Rowley MD, Nettie Pollard RN Role Performed Anesthesiologist of Surgeon - Primary Public Policy Associate - Primary Record Time In 01/28/19 07:53:00 01/28/19 07:53:00 01/28/19 07:53:00 Time Out 01/28/19 08:00:00 01/28/19 08:00:00 01/28/19 08:00:00 Procedure CERVICAL EPIDURAL CERVICAL EPIDURAL CERVICAL EPIDURAL STEROID INJECTION(.) STEROID INJECTION(.) STEROID INJECTION(.) Comments Last Modified By: [place] RN, Nettie Guthrie RN, Nettie Ponce RN 01/28/19 07:58:18 01/28/19 07:58:18 01/28/19 07:58:18 Entry 4 Entry 5 Entry 6 Case Attendee Josh OLIVAS, Tamanna Sun RN, Aaron Donohue Role Performed Public Policy Associate - Primary Scrub - Other Desktop Technician Time In 01/28/19 07:53:00 01/28/19 07:53:00 01/28/19 07:53:00 Time Out 01/28/19 08:00:00 01/28/19 08:00:00 01/28/19 08:00:00 Procedure CERVICAL EPIDURAL CERVICAL EPIDURAL CERVICAL EPIDURAL STEROID INJECTION(.) STEROID INJECTION(.) STEROID INJECTION(.) Comments orientee Last Modified By: Nettie Guthrie RN, RN, Sonja C Ward RN, Sonja C 01/28/19 07:58:18 01/28/19 07:58:18 01/28/19 07:58:18 Perioperative [...] Given Participants Nettie Guthrie RN, Amrik WADE, Marilee Gonzales Bryce Time Out Complete 01/28/19 07:53:00 Outcomes Met? [...] and tissue Entry 1 Skin Integrity Intact, [place], Warm, and Skin Abnormality No Dry Outcomes [...] Points Checked Yes By Nettie Guthrie RN, Rik Hatfield Jr., DO Outcomes Met? Yes Last Modified By: Nettie Guthrie RN 01/28/19 07:09:34 Post-Care Text: The patient is free from signs and symptoms of injury related to positioning Transport To OR FTPM Pre-Care Text: Transports according to individual needs. [...] and symptoms of infection Departure From OR FTPM Pre-Care Text: Transports according to individual needs. [...] By: Nettie Guthrie RN 01/28/19 07:58 Normal [facility] Main OR Preoperative Recordo n 01-28-2019 Main OR Preoperative Record Holding Area Document Type FT Summary Primary Physician: Cain Rowley MD Finalized Date/Time: 01/28/19 07:17:16 Pt. Name: DAREK MEJÍA /Sex: 1950 Female Med Rec #: [id number] Physician: Cain Rowley MD Financial #: [id number] Pt. Type: P Room/Bed: / Admit/Disch: 01/28/19 [...] 07:14 Melina Harper RN 01/28/19 07:17 Normal [facility] Operative Reporton 9 Operative Report Patient: DAREK [...] 96 mmHg SpO2 94 % . Normal [facility] Comment on above: Result Comment: Elec tronically Signed By: Cain Rowley MD\.br\Date and Time Signed: 01/28/19 07:58 EDT Consultation Noteon 01-25-20 Consultation Note Result type: Progres s Note-Physician Result date: January 17, 2019 10:35 EDT Result status: Auth (Verified) Result title: Pain Managment Follow up Performed by: Marah Ferrell PA-C on January 17, 2019 10:38 EDT Verified by: Marah Ferrell PA-C on January 17, 2019 10:38 EDT Encounter info: [id number], Gerry Hammond, Pain Management, 01/17/2019 - 01/17/2019 * Final [...] tid., # 180 tab(s), Refills(s) 0, Pharmacy: [facility] Documented Medications Documented NIFEdipine 30 mg [...] list: All Problems Smoker / SNOMED CT 548770084 / Confirmed Added secondary to documentation in [...] of motion. Normal strength. Integumentary: Warm, Dry, [place]. Injection site well-healed Neurologic: Alert, Oriented. Psychiatric: [...] Signed: 01/17/19 10:38 EDT Electronically Co-Signed By: Amrik WADE, Cain Perla [facility] Comment on above: Result Comment: Elec tronically [...] tid., # 180 tab(s), Refills(s) 0, Pharmacy: [facility] Documented Medications Documented NIFEdipine 30 mg [...] list: All Problems Smoker / SNOMED CT 071161500 / Confirmed Added secondary to documentation in [...] of motion. Normal strength. Integumentary: Warm, Dry, [place]. Injection site well-healed Neurologic: Alert, Oriented. Psychiatric: [...] with any interval questions or concerns. Normal [facility] Comment on above: Result Comment: ERRO R - WRONG FOLDER Electronically Signed By: Marah Ferrell PA-C\.br\Date and Time Signed: 01/17/19 10:38 EDT\.br\Electronically Co-Signed By: Amrik WADE, Cain Perla Coding Summary.on 12-31-2018 Coding Summary. CODING DATE: 019 FINAL [facility] STATUS: Home (Routine DC) PAYOR: Medicare APC [...] Velasquez Date Saved: 12/31/2018 02:30 pm Normal [facility] Progress Note-Physicianon Progress Note-Physician Patient: DAREK MEJÍA [...] day(s), # 21 tab(s), Refills(s) 0, Pharmacy: [facility] gabapentin 300 mg Cap: See Instructions, increase dose as directed to 600 mg po tid., # 180 tab(s), Refills(s) 0, Pharmacy: [facility] Documented Medications Documented NIFEdipine 30 mg [...] list: All Problems Smoker / SNOMED CT 922916288 / Confirmed Added secondary to documentation in Social History. Histories Past Medical History: No active or resolved past medical history items have been selected or recorded., SMOKES TOBACCO Family History: No family history items have been selected or recorded. Procedure history: Mastectomy (9764295670). Hysterectomy (636978094). Cholecystectomy (43271312). CABG x 5 - Coronary artery bypass grafts x 5 ([id number]). Social History Social & Psychosocial Habits Alcohol [...] and perfusion.. Gastrointestinal: Benign, nontender.. Integumentary: Warm, [place]. Neurologic: PER PAIN CLINIC ASSESSMENT. Plan [place] [employer] Anesthesiologists (ASA) physical status classification: Class III. Anesthetic Preoperative Plan Anesthesia: Monitored anesthesia care. Anesthetic plan, risks, benefits, and alternatives discussed with the patient and/or family. Patient verbalized understanding. Informed consent was given. Communication: face to face with Pt educated on the importance of smoking cessation. [facility] Comment on above: Result Comment: Elec tronically Signed By: Vijay Andre DO, Stevie Napier\.fran\Date and Time Signed: 12/31/18 15:15 EDT Main OR Intraoperative Recor don 12-30-2018 Main OR Intraoperative Record IntraOp Document Type FTPM Summary Primary Physician: Cain Rolwey MD Finalized Date/Time: 12/30/18 08:22:53 Pt. Name: DAREK MEJÍA.O.B./Sex: 1950 Female Med Rec #: [id number] Physician: Cain Rowley MD Financial #: [id number] Pt. Type: P Room/Bed: / Admit/Disch: 12/30/18 [...] Role Performed Anesthesiologist of Surgeon - Primary Public Policy Associate - Primary Record Time In 12/30/18 08:15:00 12/30/18 08:15:00 12/30/18 08:15:00 Time Out 12/30/18 08:24:00 12/30/18 08:24:00 12/30/18 08:24:00 Procedure CERVICAL EPIDURAL CERVICAL EPIDURAL CERVICAL EPIDURAL STEROID INJECTION(.) STEROID INJECTION(.) STEROID INJECTION(.) Comments Last Modified By: [place] RN, Nettie Guthrie RN, Nettie Gutrhie RN, Nettie Self 12/30/18 08:22:46 12/30/18 08:22:46 12/30/18 08:22:46 Entry 4 Entry 5 Entry 6 Case Attendee Josh OLIVAS, Tamanna Sun RN, Delmy Bermeo Role Performed Scrub - Primary Scrub - Other Desktop Technician Time In 12/30/18 08:15:00 12/30/18 08:15:00 12/30/18 08:15:00 Time Out 12/30/18 08:24:00 12/30/18 08:24:00 12/30/18 08:24:00 Procedure CERVICAL EPIDURAL CERVICAL EPIDURAL CERVICAL EPIDURAL STEROID INJECTION(.) STEROID INJECTION(.) STEROID INJECTION(.) Comments orientee Last Modified By: Nettie Guthrie RN, RN, Sonja C Ward RN, Sonja C 12/30/18 08:22:46 12/30/18 08:22:46 12/30/18 08:22:46 Perioperative Protocols [...] 08:17:00 Outcomes Met? Yes Last Modified By: eNttie Guthrie RN 12/30/18 08:17:40 Post-Care Text: The [...] and tissue Entry 1 Skin Integrity Intact, [place], Warm, and Skin Abnormality No Dry Outcomes [...] injury related to positioning Transport To OR FTPM Pre-Care Text: Transports according to individual needs. [...] and symptoms of infection Departure From OR FTPM Pre-Care Text: Transports according to individual needs. [...] By: Nettie Guthrie RN 12/30/18 08:22 Normal [facility] Main OR Preoperative Recordo n 12-30-2018 Main OR Preoperative Record Holding Area Document Type FTPM Summary Primary Physician: Cain Rowley MD Finalized Date/Time: 12/30/18 07:39:27 Pt. Name: DAREK MEJÍA /Sex: 1950 Female Med Rec #: [id number] Physician: Cain Rowley MD Financial #: [id number] Pt. Type: P Room/Bed: / Admit/Disch: 12/30/18 [...] By: Melina Harper RN 12/30/18 07:39 Normal [facility] Operative Reporton 9 Operative Report Patient: DAREK [...] 112 mmHg SpO2 98 % . Normal [facility] Comment on above: Result Comment: Elec tronically Signed By: Cain Rowley MD\.br\Date and Time Signed: 12/30/18 08:23 EDT Message - General Officeon 0 12-25-2018 Message - General Office From: James Eaton ([facility] Pain Cad Technician) To: Cain Rowley MD; Sent: 12/19/2018 14:37:15 EDT Subject: Rx Patient called and said that she had been prescribed Gabapentin per her last care plan. She said it makes her sleepy and weak. She asked if she would be able to take something different. From: Marah Ferrell PA-C To: [facility] Inbox; Sent: 12/20/2018 09:18:44 EDT Subject: RE: Rx DC GPN, we can try lyrica if insurance mitzi cover it. Or just proceed with injection only and see if that helps. Please let me know what she would like to try. From: Jeevan Java Sql DeveloperElysia Fitzgerald ([facility] Inbox) To: [facility]; Sent: 12/20/2018 10:01:06 EDT Subject: pt to call back. called patient, left a message requesting a return telephone. From: Jeevan LiuJava Sql DeveloperElysia Fitzgerald ([facility] Inbox) To: Marah Ferrell PA-C; Sent: 12/20/2018 13:34:17 EDT Subject: RE: pt to call back. Patient called back and stated that she will d/c the gabapentin and will just wait for injection before trying the lyrica Received a request for prior authorization for the Gabapentin from [facility] From: Elva Moreno RN ([facility] Inbox) To: [facility]; Sent: 12/23/2018 08:44:56 EDT Subject: Rx prior auth request Tried to call [facility] and they do not open until after 9 - will call to see if she picked this up (see notes below) and why we got this request. From: Elva Moreno RN ([facility]) To: Elva Moreno RN; Sent: 12/23/2018 10:51:16 EDT Subject: FW: Rx prior auth request Contacted [facility] and they confirm the patient filled this on the 17 of December - not sure why we got the request for Prior authoization, but since we will not be continuing this medication we will disregard the request. for CADE. 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 [...] is reviewed. From: Marah Ferrell PA-C To: [facility]; Sent: 12/25/2018 11:05:18 EDT Subject: RE: Intractable pain injection scheduled Sunday12/30/18 I can send a medrol dose pack in if she would like to use until the injection From: Elva Moreno RN ([facility]) To: [facility]; Sent: 12/25/2018 11:11:14 EDT Subject: FW: Intractable pain injection scheduled Sunday12/30/18 Due Date/Time: 12/25/2018 13:00:00 EDT Left voice mail for patient to call the office From: Elva Moreno RN ([facility]) To: Marah Ferrell PA-C; Sent: 12/25/2018 11:14:17 EDT Subject: Dose Pack On hold pending signature Order:methylPREDNISolon e (Medrol Dosepack 4 mg Tab) 1 packet(s) Oral As Directed as directed on package labeling Qty: 21 tab(s) Duration: 6 day(s) Refills: 0 Substitutions Allowed Route To Pharmacy - [facility] Patient returned call and states she will give it a try . Approved Order:methylPREDNISolon e (Medrol Dosepack 4 mg Tab) 1 packet(s) Oral As Directed as directed on package labeling Qty: 21 tab(s) Duration: 6 day(s) Refills: 0 Substitutions Allowed Route To Pharmacy - [facility] Signed by Marah Ferrell PA-C 12/25/18 11:27:00 From: Marah Ferrell PA-C To: [facility]; Sent: 12/25/2018 11:27:52 EDT Subject: RE: Dose Pack sent From: Jeevan LiuJava Sql DeveloperElysia Fitzgerald ([facility]) To: [facility]; Sent: 12/25/2018 12:57:16 EDT Subject: RE: Dose Pack attempted to call patient, no answer and no voicemail From: Triny Woods ([facility]box) To: [facility]; Sent: 12/25/2018 13:21:44 EDT Subject: RE: Dose Pack patient returned call I informed her prescription sent to pharmacy Normal [facility] Consultation Noteon 12-25-19 Consultation Note HOSPITAL REGULATIONS [...] to 600 mg three times per day. [place] Automated Prescription Reporting System report was reviewed and is consistent with the previous medications prescribed. The patient will follow up two weeks after the injection to assess response and call the clinic with any questions or concerns. The patient agrees with plan of care. Cain Rowley M.D. lkr Dictated: 12/17/2018 #[id number] Typed: 12/19/2018 #[id number] cc: Cain Rowley M.D. Kayleigh Gay M.D. Stas Olvera MD [facility] Comment on above: Result Comment: Elec tronically Signed By: Amrik WADE, Cain Perla\.br\Date and Time Signed: 12/24/18 13:15 EDT Message - General Officeon 0 12-23-2018 Message - General Office From: Sarah Laws To: [facility] Pain Cad Technician; Sent: 12/17/2018 13:40:24 EDT Subject: [place]-Medicare [employer]-CES-12/17/18 From: Thais Nieto ([facility] Pain Cad Technician) To: [facility] Clerical Inbox; Sent: 12/23/2018 13:33:03 EDT Subject: 2nd call Arleen Submitted prior auth online through [address]. Medicare [employer] approved auth #[id number] good 12/23/18 to 03/23/19. Called patient to schedule C6/7 MAUREEN no anesthesia Dx M54.12, patients number has been changed or disconnected called Ag on patients HIPAA no answer unable to leave a message. From: Thais Nieto ([facility] Clerical Inbox) To: [facility]er[facility] Inbox; Sent: 12/23/2018 14:32:36 EDT Subject: RE: 2nd call Arleen Patient called back, scheduled procedure for 12/30/18, scheduled follow up for 01/17/19 at 10:10am. Normal [facility] Coding Summary.on 12-20-2018 Coding Summary. CODING DATE: [facility] STATUS: Home (Routine DC) PAYOR: Medicare ADMIT DX: REASON FOR VISIT DX: M54.2 Cervicalgia FINAL DX: PRINCIPAL: M54.12 Radiculopathy, cervical region SECONDARY: M50.20 Other cervical disc displacement, unspecified cervical region M50.30 Other cervical disc degeneration, unspecified cervical region Z79.82 intermediate (current) use of aspirin Z79.1 intermediate (current) use of non-steroidal anti-inflammatories (NSAID) PROCEDURES DOCTOR NAME DATE NOTE: The code number assigned matches the documented diagnosis and / or procedure in the patient's chart. However, the narrative phrase printed from the coding software may appear abbreviated, or result in slightly different terminology. Coded By: Linh Devlin CphT Date Saved: 12/20/2018 01:35 pm [facility] Coding Summary.on 12-03-2018 Coding Summary. CODING DATE: [facility] STATUS: Home (Routine DC) PAYOR: Medicare ADMIT [...] Devlin CphT Date Saved: 12/03/2018 01:31 pm [facility] Consultation Noteon 12-04-19 Consultation Note HOSPITAL REGULATIONS [...] bypass surgery in July 2015 at the [facility] and she does smoke. REVIEW OF SYSTEMS: [...] injection. 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 Normal [facility] OPERATIVE REPORTon 8 OPERATIVE REPORT [address] [address] OPERATIVE REPORTPATIENT NAME: DAREK MEJÍA : 8MED REC NO: [id number] ROOM:ACCOUNT NO: [id number] ADMIT DATE: 12/11/2017PROVIDER: Dustin McmahonDATE OF PROCEDURE: [...] and will be seen infollowup on 12/12/2017.DUSTIN MCMAHOND: 12/11/2017 11:14:16 CD/[id number]#: [id number] Doc#: [id number]: Normal [facility] Op Noteon 12-11-2017 HIM IP Note OR Casing Crew Pusher Normal [facility] History and Physicalon 10-23 HIM IP Note OR Casing Crew Pusher [facility] OPERATIVE REPORTon 8 OPERATIVE REPORT [address] [address] OPERATIVE REPORTPATIENT NAME: DAREK MEJÍA : 1950MED REC NO: [id number] ROOM:ACCOUNT NO: [id number] ADMIT DATE: 10/23/2017PROVIDER: Dustin McmahonDATE OF PROCEDURE: [...] day for the first 4 days postoperatively.DUSTIN Ren DABBSD: 10/23/2017 11:29:16 CD/[id number]#: [id number] Doc#: [id number]: Normal [facility] Op Noteon 10-23-2017 HIM IP Note OR Casing Crew Pusher [facility] Progress Noteon 10-23-2017 HIM IP Note OR Casing Crew Pusher [facility] HIM IP Note OR Casing Crew Pusher [facility] No Panel Information [facility] Encounters Encounter Date Encounter Type Care Provider Facility Start: 08-01-2023 End: 08-01-[address] [facility] Start: 07-21-2023 Evaluation and management of inpatient MAHAMED [facility] Start: 07-20-2023 Evaluation and management of inpatient PARTHA [facility] Start: 07-20-2023 [facility] Start: 07-20-2023 Evaluation and management of inpatient WHITNEY [facility] Start: 07-20-2023 Evaluation and management of inpatient [facility] Start: 07-19-2023 End: 07-22-2023 Evaluation and management of inpatient [facility] Start: 07-19-2023 End: 07-19-2023 ambulatory [facility] Start: 04-23-2023 End: 04-23-2023 ambulatory [facility] Start: 01-31-2023 End: 01-31-2023 ambulatory [facility] Start: 12-21-2022 End: 12-21-2022 ambulatory [facility] Start: 11-30-2022 End: 12-01-[address] KAYLEIGH GAY . 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 Facility: Start: 06-19-2022 End: 06-20-[address] KAYLEIGH GAY . Facility: Start: 02-20-2022 End: 02-21-[address] OPAL CARVALHO Facility: Start: 04-10-2019 End: 04-10-2019 Patient encounter procedure ESTEBAN LÓPEZ [facility] Start: 03-31-2019 End: 04-03-2019 Patient encounter procedure OLGA PARISI [facility] Start: 12-11-2017 End: 12-11-2017 Ambulatory [facility] Start: 10-23-2017 End: 10-23-2017 Ambulatory [facility] Start: 09-28-2017 End: 09-29-2017 Ambulatory DEFAULT PHYSICIAN Facility:[facility] Procedures Date Procedure Procedure Detail Performing Clinician Start: 10-30-2022 IOL BIOMETRY W/ IOL CALC OS (LEFT EYE) Aleksandar Wilson MD Work Phone: Start: 08-15-2022 Post-cataract laser surgery Aleksandar Wilson MD Work Phone: Start: 01-10-2020 History of coronary artery bypass grafting Hx of CABG Aleksandar Castillo MD Work Phone: Start: 04-10-2019 INCENTIVE SPIROMETRY RT OLGA PARISI Start: 04-10-2019 Level iv surg pathol ogy gross&microscopic exam OLGA PARISI Start: 04-10-2019 INCENTIVE SPIROMETRY RT OLGA PARISI Start: 04-10-2019 DISCHARGE PATIENT ELIDIA PARISI Start: 04-10-2019 FLUORO FOR SURGICAL PROCEDURES OLGA [...] NONA MCMAHON Start: 12-11-2017 CHLORIDE (POC) DUSTIN PINEDOBS Start: 12-11-2017 CREATININE W/GFR POI NT OF CARE DUSTIN MCMAHON Start: 12-11-2017 LACTIC ACID,POINT OF CARE DUSTIN PINEDOBS Start: 12-11-2017 POCT GLUCOSE DUSTIN RICH EVE Start: 12-11-2017 POTASSIUM (POC) DUSTIN PINEDOBS Start: 12-11-2017 SODIUM (POC) DUSTIN RICH BBS Start: 12-11-2017 EKG 12-LEAD DUSTIN RICH EVE Start: 12-11-2017 INITIATE OXYGEN THER APY PROTOCOL DUSTIN PINEDOBS Start: 12-11-2017 POC CHEM8 INCLUDES C ALC. ANION GAP DUSTIN PINEDOBS Start: 10-23-2017 DISCHARGE PATIENT NONA MCMAHON Start: 10-23-2017 Continuous pulse oximetry DUSTIN MCMAHON Start: 10-23-2017 INITIATE OXYGEN THER APY PROTOCOL DUSTIN PINEDOBS Start: 10-23-2017 BEDREST DUSTIN RICH EVE Start: 10-23-2017 ENCOURAGE DEEP BREAT LEANDRO AND COUGHING DUSTIN PINEDOBS Start: 10-23-2017 NOTIFY PHYSICIAN (SPECIFY) DUSTIN PINEDOBS Start: 10-23-2017 NURSING COMMUNICATION Clair ALVINO PINEDOBS Start: 10-23-2017 VITAL SIGNS DUSTIN RICH EVE Start: 10-23-2017 POCT POTASSIUM DUSTIN MCMAHON Start: 10-23-2017 POTASSIUM (POC) DUSTIN MCMAHON Start: 10-23-2017 INITIATE OXYGEN THER APY PROTOCOL DUSTIN PINEDOBS Start: 10-23-2017 NOTIFY PHYSICIAN (SPECIFY) DUSTIN SALOME Start: 10-23-2017 VITAL SIGNS DUSTIN CHRISTOPHER Plan of Treatment Date Care Activity Detail Author Start: 01-08-2025 LIPID SCREEN LIPID SCREEN [facility] Start: 01-27-2023 DIABETES SCREEN DIABETES SCREEN [facility] Start: 09-03-2022 ADVANCE DIRECTIVE DISCUSSION ADVANCE DIRECTIVE DISCUSSION [facility] Start: 09-03-2022 DEPRESSION ASSESSMENT DEPRESSION ASS ESSMENT [facility] Start: 05-04-2022 Influenza vaccination INFLUENZA (#1) [facility] Start: 09-13-2021 COVID-19 VACCINE (4 - Booster for Moderna series) COVID-19 VACCINE (4 - Booster for Moderna series) [facility] Start: 09-03-2021 ADVANCE DIRECTIVE DISCUSSION ADVANCE DIRECTIVE DISCUSSION [facility] Start: 09-03-2021 DEPRESSION ASSESSMENT DEPRESSION ASS ESSMENT [facility] Start: 01-08-2021 Hepatitis B surface antibody level LDL CHOLESTEROL [facility] Start: 07-26-2016 PNEUMOCOCCAL: 65+ (2 - PCV) PNEUMOCOCCAL: 65+ (2 - PCV) [facility] Start: 2014 BONE DENSITY BONE DENSITY [facility] Start: 1999 SHINGRIX VACCINE (1 of 2) SHINGRIX V ACCINE (1 of 2) [facility] Start: 1994 COLOGUARD (FIT-DNA) COLOGUARD (FIT-D NA) [facility] Start: 1994 Colonoscopy COLONOSCOPY [facility] Start: 1994 COLORECTAL CANCER SCREENING COLORECTAL CANCER SCREENING [facility] Start: [address] COLONOGRAPHY [facility] Start: 1994 FECAL OCCULT BLOOD FECAL OCCULT BLOO D [facility] Start: 1994 [facility] Start: 1989 Mammography MAMMOGRAM [facility] Start: 1979 Zoledronic acid therapy ALPHA- 1 ANTITRYPSIN DEFICIENCY SCREENING [facility] Start: 1968 Urine microalbumin profile DTAP,TDAP ,TD (1 - Tdap) [facility] Start: 1967 ANNUAL PCP TEAM EMPLOYMENT MANAGER LEATHA DISEASE VISIT ANNUAL PCP TEAM CHRONIC DISEASE VISIT [facility] Start: 1967 BP CONTROLLED (<130/80) BP CONTROLLE D (<130/80) [facility] Start: 1967 HEPATITIS C SCREENING HEPATITIS C SC REENING [facility] Start: 1967 SPIROMETRY SPIROMETRY [facility] Immunizations Immunization Date Immunization Notes Care Provider Fa cility 06-07-2022 unknown vaccine or immune globulin [facility] Work Phone: [facility] 05-25-2021 influenza, injectable,quadrivalent , preservative free, pediatric [facility] Work Phone: [facility] 09-18-2017 pneumococcal conjuga te vaccine, 13 valent [facility] Work Phone: [facility] 06-03-2017 influenza, seasonal, injectable [facility] Work Phone: [facility] 07-07-2016 influenza virus vaccine, unspecified formulation [facility] Work Phone: [facility] 06-14-2016 influenza, injectabl e, quadrivalent, preservative free [facility] Work Phone: [facility] 07-26-2015 influenza, high dose seasonal, preservative-free Aleksandar Castillo MD Work Phone: [facility] 07-26-2015 pneumococcal polysaccharide vaccine, 23 valent Aleksandar Castillo MD Work Phone: [facility] Payers Date Payer Category Payer Medicare AETNA MEDICARE A ETNA MEDICARE PPO [id number] 2021-Present [phone] [address] [place] [address] PPO [id number] 1959 Medicare [id number] 1960 Medicare [id number] 1950 Unknown [id number] 1950 Unknown [id number] 1950 Unknown [id number] 1950 Unknown [id number] 1949 Unknown [id number] 1949 Unknown [id number] 1949 Unknown [id number] 1949 Unknown [id number] 1949 Unknown [id number] 1949 Unknown [id number] Unknown Social History Date Type Detail Facility Start: 09-03-1962 End: 10-30-2022 Tobacco smoking status MIIS Smokes tobacco daily [facility] Start: 09-03-1962 History of tobacco use Cigarette Smo ker [facility] Start: 03-22-2021 End: 10-30-2022 Cigarettes smoked current (pack per day) - Reported 0.5 [facility] Start: 03-22-2021 End: 10-30-2022 Tobacco use and exposure Smokeless tobacco non-user [facility] Start: 08-15-2022 End: 10-30-2022 Alcohol intake Current drinker of alcohol (finding) [facility] Start: 03-22-2021 Alcohol Comment rare[facility] Start: 1950 Sex Assigned At Not on file C [facility] Medical Equipment Procedure Code Equipment Code Equipment Origin al Text Equipment Identifier Dates Graft Gelweave 3 0mm Straight Gelatin Polyester Woven 30cm Cardiovascular - [id number] Start: 01-10-2020 [place] Cv 4x.5in Thk1.65mm Ptfe - [id number] Start: 07-20-2015 [place] Thk1.65mm P tfe [id number] Cardiovascular Patch Sterile - [id number] Start: 01-10-2020 Lens Iol 0d +21. 5 [place] Uv Abs - [id number] Start: 04-13-2021 Comment on above: Description: -0.47 Patch Thk.5mm Esteban vine Pericardial 95z20ft Cardiovascular Resilience Durable - [id number] Start: 01-10-2020 Valve Aort 23mm Crp-Ed Thfx - [id number] Start: 01-10-2020 Clinical Notes 01-09-2020 to 08-01-2023 Thais Dodd, XIOMARA - 10/30/2022 3:19 PM ESTTelephone Encounter - Rayna Martin - 10/18/2022 1:30 PM ESTTelephone Encounter - Haven Moreno LPN - 10/18/2022 1:15 PM EST Note Date & Type Note Facility 08-01-2023 Note [facility] Cardiology Clinic Note Chief Complaint: Patient here for follow up [facility]. Underwent heart cath and AMITA [...] Severe obstructive karley (more content not included)... [facility] 07-22-2023 Note 07/22/23 1106 Home Oxygen Therapy Evaluation Pulse Oximetry on room air at Rest 87 Pulse Ox on O2 with nasal cannula while at rest 95 (placed patient on 2lpm via nasal cannula) Patient Qualification for home oxygen Qualifies $ Pulse Oximetry Single [facility] 07-22-2023 Note Hospital Medicine Discharge Summary Final Discharge Diagnosis: Newly diagnosed Atrial fibrillation, CHADVASc of 5 s/p AMITA Cardioversion Post cardioversion bradycardia Severe Bioprosthetic Aortic valve stenosis Admission Diagnosis: Atrial fibrillation ([facility]) [I48.91] Hospital course: Darek Mejía is a [...] 100-62.5-25 mcg blister with device Generic drug: aijkvmtljdy-skhbdktxx-ezprlgef STOP taking these medications carvedilol 12.5 mg tablet Commonly known as: Coreg Where to Get Your Medications These medications were sent to [facility]/pharmacy #[id number]NER OF [address] [address] apixaban 5 mg tablet Darek is allergic [...] rales or rh (more content not included)... [facility] 07-22-2023 Note Attestation signed by Kvng Bustamante [...] -- -- 60 22 94 % -- 07/21/232023 118/67 -- -- 60 17 92 % -- 07/21/23 1700 129/69 36.6 ???C (97.8 ???F) Temporal 51 19 92 % -- 07/21/23 1130 (!) 112/48 36.8 ???C (98.2 ???F) [...] 124 QT Interval 462 QTC CALCULATION(BAZETT) 412 R-Elton -64 T Wave Elton -82 Impression Wide QRS rhythm Left anterior fascicular block Left ventricular hypertrophy with QRS widening and repolarization abnormality ( Bohannon product ) Cannot rule out Septal infarct [...] with QRS widening and repolarization abnormality ( Bohannon product ) Cannot rule out Septal infarct [...] CAD s/p CABG x5 with revesion in 2019 at [facility] ([facility], rSVG- Diagonal, SVG-OM, SVG-PDA-PLV) Aortic stenosis [...] Juancarlos Egan MD PGY-2 Internal Medicine Resident [facility] 07-21-2023 Note Physical Therapy Physical Therapy Evaluation [...] artery disease involving coronary bypass graft of eagle heart with angina pectoris (CMS/HCC) Dyslipidemia Encounter for support and coordination of transition of care Hx of CABG Hypervolemia Ischemic heart disease, chronic Macular hole of right eye Mild left ventricular systolic dysfunction Moderate protein-calorie malnutrition (CMS/HCC) Nonrheumatic aortic valve insufficiency Pleural effusion Benign hypertensive cardiomyopathy with heart failure (CMS/HCC) Smoking addiction Bradycardia CHF (congestive heart failure) ([facility]) GERD (gastroesophageal reflux disease) Other emphysema ([facility]) Atrial fibrillation ([facility]) Acute heart failure with preserved ejection fraction ([facility]) Nonrheumatic aortic valve stenosis Past Medical History: [...] Level of Function Prior Function Level of [place]: Independent with ADLs and functional transfers, Independent [...] to walk i (more content not included)... [facility] 07-21-2023 Note Hospital Medicine Daily Progress Note - 07/21/2023 11:41 AM; Room: 3137/3137-01 Admission: 07/19/2023 8:09 PM; Length of stay: 2 days THE HOSPITALIST TEAM PREFERS TO USE [employer] CHAT FOR COMMUNICATION 7AM-7PM. IF I DO NOT RESPOND WITHIN 15 MINUTES, PLEASE PAGE ME/CALL THROUGH THE [employer] DEBEADER. FROM 7PM-7AM, PLEASE PAGE [phone](COVR) Code Status: Full Code Barriers to Discharge: [...] Active Inpatient Problems Principal Problem: Atrial fibrillation ([facility] [facility]) Active Problems: Acute heart failure with preserved ejection fraction ([facility]) Nonrheumatic aortic valve stenosis Assessment and Plan Severe Bioprosthetic Aortic valve stenosis Newly diagnosed Atrial fibrillation, CHADVASc = 5 CAD s/p CABG x5 with revesion in 2019 at [facility] (CH-LAD, rSVG- Diagonal, SVG-OM, SVG-PDA-PLV) Aortic stenosis [...] 0-28 Units/kg/hr, Last Rate: 17 Units/kg/hr (07/21/23 0347) Pertinent Investigations Hematology: Results from last 7 days Lab Units 07/21/23 0350 07/20/23 0531 07/19/237 WBC AUTO 10*3/uL -- 5.76 6.17 HEMOGLOBIN [...] 7 days Lab Units 07/21/23 0350 07/19/237 AST U/L 21 23 ALT U/L 12 17 ALK PHOS U/L 97 132* BILIRUBIN TOTAL mg/dL 0.6 0.9 Historical Values: (Includes values prior to this admission) Lab Results Component Value Date TSH 0.06 (L) 07/19/2023 T3FREE 3.7 07/21/2023 FREET4 1.14 07/21/2023 No results found for: [id number], IRON, TIBC, C3, C4, MIRIAM, CANCA, ASO, PSA, CEA, CA125, CA199, AFP, CA153 Imaging ECG 12 lead Wide QRS rhythm Left anterior fascicular block Left ventricular hypertrophy with QRS widening and repolarization abnormality ( Bohannon product ) Cannot rule out Septal infarct , age undetermined Abnormal ECG When compared with ECG of 20-JUL-2023 12:58, Wide QRS rhythm has replaced Sinus rhythm Discharge Planning Discharge Planning Has discharge transport been arranged?: Yes OT Discharge Recommendations: Home Signed Partha Fuller (more content not included)... [facility] 07-21-2023 Note Attestation signed by Kvng Bustamante [...] 124 QT Interval 462 QTC CALCULATION(BAZETT) 412 R-Elton -64 T Wave Elton -82 Impression Wide QRS rhythm Left anterior fascicular block Left ventricular hypertrophy with QRS widening and repolarization abnormality ( Bohannon product ) Cannot rule out Septal infarct [...] with QRS widening and repolarization abnormality ( Bohannon product ) Cannot rule out Septal infarct [...] CABG x5 with revesion in 2020 at [facility] (CH-LAD, rSVG- Diagonal, SVG-OM, SVG-PDA-PLV) Aortic stenosis [...] bradycardia with amiodar (more content not included)... [facility] 07-21-2023 Note Called re pt with br adycardia and frequent pvcs Recent labs reviewed will check free T4/T3 since tsh 0.06 consider readjusting doses check troponins hold coreg ekg staff to notify cardiology serum calcium high normal check vit d and repeat cmp [facility] 07-20-2023 Note Procedure Report PROCEDURE: synchronized cardioversion INDICATION: atrial fibrillation, persistent LEGUILLON DEBEADER: Gallo Knowles M.D. ANESTHESIA: conscious sedation TECHNIQUE: [...] sinus rhythm. There were no apparent complications. [facility] 07-20-2023 Note Hospital Medicine Daily Progress Note - 07/20/2023 12:37 PM; Room: [address] [place] [address] Admission: 07/19/2023 8:09 PM; Length of stay: 1 days THE HOSPITALIST TEAM PREFERS TO USE [employer] CHAT FOR COMMUNICATION 7AM-7PM. IF I DO NOT RESPOND WITHIN 15 MINUTES, PLEASE PAGE ME/CALL THROUGH THE LEGUILLON DEBEADER. FROM 7PM-7AM, PLEASE PAGE [phone](COVR) Code Status: Full Code Barriers to Discharge: [...] Active Inpatient Problems Principal Problem: Atrial fibrillation ([facility]/HCC) Active Problems: Acute heart failure with preserved ejection fraction (CMS/HCC) Nonrheumatic aortic valve stenosis Assessment and Plan Severe Bioprosthetic Aortic valve stenosis Newly diagnosed Atrial fibrillation, CHADVASc = 5 CAD s/p CABG x5 with revesion in 2020 at [facility] (CH-LAD, rSVG- Diagonal, SVG-OM, SVG-PDA-PLV) Aortic stenosis [...] FREET4 1.31 07/19/2023 No results found for: [id number], IRON, TIBC, C3, C4, MIRIAM, CANCA, ASO, PSA, CEA, CA125, CA199, AFP, CA153 Imaging ECG 12 lead Atrial fibrillation Left axis deviation Left ventricular hypertrophy with QRS widening and repolarization abnormality ( Moris product ) Cannot rule out Anteroseptal infarct [...] in the epigastric (more content not included)... [facility] 07-20-2023 Note Clinical Nutrition A ssessment Name: [...] based on: actual body weight Calorie needs: 7582-4364 kcals/day based on Equation: 25-30 kcal/kg Protein [...] with questions and contact the dietitian via kSARIA chat 8A-4P Sunday-Sunday. Or call the dietitian's office at extension [phone]. For weekends/holidays, the dietitian's can be reached by paging [phone] from 9A-3P. Unable to be reached via [employer] chat on Sunday & .) [facility] 07-20-2023 Note Occupational Therapy Occupational Therapy Evaluation [...] artery disease involving coronary bypass graft of eagle heart with angina pectoris (CMS/HCC) Dyslipidemia Encounter [...] Level of Function Prior Function Level of [place]: Independent with ADLs and functional transfers, Independent [...] Eating meals?: None (Independent) Total Score OT [facility]: 21 Assessment/Plan OT Assessment OT Impairments: Decreased ADL status, Decreased endurance, Decreased functional mobility OT Assessment/RV DETAILER Summary: (needs skilled OT for generalized weakness and fatigue) Prognosis: Good Evaluation/Treatment Tolerance: Patient limited by fatigue Medical Staff Made Aware: Yes OT Education/Comments: (ws/ec/pacing , ae/dme that may improve endurance for adls at home , all with good verbal return) Plan Level of assist: 1 assist Treatment Interventions: ADL retraining, Fu (more content not included)... [facility] 07-20-2023 Note Hospital Medicine History and Physical 07/19/2023 10:58 PM THE HOSPITALIST TEAM PREFERS TO USE [employer] FOR COMMUNICATION 7AM-7PM. IF I DO NOT RESPOND WITHIN 15 MINUTES, PLEASE PAGE ME/CALL THROUGH THE LEGUILLON DEBEADER. FROM 7PM-7AM, PLEASE PAGE [phone](COVR) Chief Complaint No chief complaint on file. History of Present Illness Darek Mejía is an 73 y.o. female admitted from home per recommendation by her delivery driver/supervisor who saw her in the office and [...] Problem List Diagnosis Date Noted Atrial fibrillation ([facility]) 07/19/2023 GERD (gastroesophageal reflux disease) 10/30/2022 Other emphysema ([facility]) 10/30/2022 Combined forms of age-related cataract of both eyes 04/13/2021 Pleural effusion 01/19/2020 Encounter for support and coordination of transition of care 01/15/2020 Moderate protein-calorie malnutrition ([facility]) 01/11/2020 Hx of CABG 01/10/2020 Nonrheumatic aortic valve insufficiency 01/09/2020 Dyslipidemia 03/25/2019 Macular hole of right eye 10/23/2017 Ischemic heart disease, chronic 08/24/2015 Chronic systolic heart failure ([facility]) 07/24/2015 CHF (congestive heart failure) ([facility]) 07/24/2015 Hypervolemia 07/23/2015 Atelectasis 07/21/2015 Coronary artery disease involving coronary bypass graft of eagle heart with angina pectoris ([facility]/HCC) 07/19/2015 Mild left ventricular systolic dysfunction 06/22/2015 Benign hypertensive cardiomyopathy with heart failure ([facility]) 06/22/2015 Smoking addiction 06/22/2015 Bradycardia 08/11/2022 Assessment [...] ordered as approp (more content not included)... [facility] 07-19-2023 Note [facility] Card[facility] Clinic Note Chief Complaint: Patient here [...] motion with ejection (more content not included)... [facility] 04-23-2023 Note [facility] Cardiology Clinic Note Chief Complaint: Patient [...] of ventricular bigeminy. (more content not included)... [facility] 01-31-2023 Note Continue GDMT- ASA, lipitor, coreg continue risk factor modifications- heart healthy diet, regular exercise as tolerated and continue all medications. [facility] 01-31-2023 Note [place] II- currently e uvolemic without excaerbation Continue GDMT- ASA, lipitor, coreg, lisinopril and aldatone Diuretic therapy- lasix every other day Monitor daily weights, I&O, fluid restriction 1.5-2L/day, renal function and electrolytes- [facility] 01-31-2023 Note Stable- continue all meds [facility] 01-31-2023 Note Review of B/P log an d her HTN is much better controlled with addition of aldactone. K+ level remains normal and renal function is stable for her. Denied lightheadedness/dizziness Continue aldactone, lisinopril, coreg and lasix QOD [facility] 01-31-2023 Note Patient here for 2 m [...] All other systems reviewed and are negative. [facility] 01-31-2023 Note [facility] CARDI[facility] PROGR ESS NOTE [...] all meds Chronic systolic heart failure (CMS/HCC) [facility] II- currently euvolemic without excaerbation Continue GDMT- ASA, lipitor, coreg, lisinopril and aldatone Diuretic therapy- lasix every other day Monitor daily weights, I&O, fluid restriction 1.5-2L/day, renal function and electrolytes- Coronary artery disease involving coronary bypass graft of eagle heart with angina pectoris (CMS/HCC) Continue GDMT- ASA, lipitor, coreg continue risk factor modifications- heart healthy diet, regular exercise as tolerated and continue all medications. RTC 3 months with repeat BMP in 1 week [facility] 01-11-2023 Note Review of b/p log sh ows HTN remains uncontrolled at home- will add aldactone to regime and repeat BMP in 1 week to assess renal function and potassium level Have pt RTC in 2-4 weeks- message sent to Quyen Vernon MA. [facility] 01-11-2023 Note Benign hypertensive cardiomyopathy with heart [...] Release to Patient Answer: Immediately Hawa Rush VICE CHAIR Division of Cardiology, [facility]- [phone] Pager- [phone] Email- [email or web address] 12-21-2022 Note [facility] II- currently e uvolemic without exacerbation Continue GDMT- ASA, lipitor, coreg, lisinopril Diuretic therapy- lasix qod Monitor daily weights, I&O, fluid restriction 1.5-2L/day, renal function and electrolytes- [facility] 12-21-2022 Note Coronary artery dise ase is stable Continue GDMT continue risk factor modifications- heart healthy diet, regular exercise as tolerated and continue all medications. [facility] 12-21-2022 Note stable: [facility] 12-21-2022 Note Currently stable wit hout any concerning symptoms [facility] 12-21-2022 Note Reviewed echocardiog ashwini with pt from 08/2022 No concerning symptoms currently Will repeat echo at 1 year- or Aug 2023 [facility] 12-21-2022 Note Hypertension is elev ated in office each time she is here most likely r/t white coat syndrome. States b/p typically at home is 130's/70 with occasional 140/80 Continue all meds [facility] 12-21-2022 Note Continue lipitor 80 mg [facility] 12-21-2022 Note Patient here for 4 [...] All other systems reviewed and are negative. [facility] 12-21-2022 Note [facility] CARDIOLOGY PROGR ESS NOTE [...] at 1 yea (more content not included)... [facility] 10-30-2022 Note HNO ID: [id number] Author: XIOMARA Farmer Service: ? Author Type: Sofa Inspector Type: Progress Notes Filed: 10/30/2022 3:28 PM Note Text: CONFIRM AIM PLANO LEFT EYE. XIOMARA Farmer [facility] 10-30-2022 History of Present illness Narrative CONFIRM AIM PLANO LEFT EYE. XIOMARA Farmer documented in this encounter [facility] 10-18-2022 Miscellaneous Notes Called and spoke with [...] 2022 1:18 PM documented in this encounter [facility] 08-15-2022 Note HNO ID: [id number] Author: Aleksandar Wilson V, MD Service: ? [...] and surgery - Comanage with Dr Mccollum; [facility] POD #1 Cataract Presurgical Documentation Cataract: Left [...] as other activities of daily living. Darek Dickjocelynemarlene has confirmed that she is no longer [...] with lens implantation were discussed with Darek Sofiamarlene in detail. These included, but are not [...] patient was offered a surgery/procedure at a [facility] facility. The surgeon/proceduralist and patient have discussed [...] patient was offered a surgery/procedure at a [facility] facility. The surgeon/proceduralist and patient have discussed [...] form. -F/U [address] Mccollum ([facility]) The documentation recorded by the scribe accurately reflects the service I personally performed and the decisions made by me. I have confirmed and edited as necessary the relevant ophthalmic history, ROS, and the exam findings as obtained by others. I have seen and examined Darek Mejía. I also have reviewed and agree with the ass (more content not included)... [facility] 08-15-2022 Note HNO ID: [id number] Author: Jean-Claude Miles, OD Service: ? Author Type: DISPATCH MANAGER Type: Progress Notes Filed: 08/15/2022 3:51 PM [...] Miles, OD August 15, 2022 3:07 PM [facility] 08-15-2022 History of Present illness Narrative The documentation for this note was completed by Brenna Mohan, XIOMARA acting as a scribe for Aleksandar WILSON [...] and surgery - Comanage with Dr Mccollum; [facility] POD #1 Cataract Presurgical Documentation Cataract: Left [...] patient was offered a surgery/procedure at a [facility] facility. The surgeon/proceduralist and patient have discussed [...] patient was offered a surgery/procedure at a [facility] facility. The surgeon/proceduralist and patient have discussed [...] form. -F/U [address] Mccollum ([facility]) The documentation recorded by the scribe accurately [...] 2022 3:07 PM documented in this encounter [facility] 01-09-2020 History of Past i llness Narrative [...] Dental: N/A PFT's: N/A ( per CTS tariff expert - Per Dr. Bernal okay to proceed [...] of this encounter (statuses as of 08/15/2022) [facility] History of Past illness Narrative* Problem Noted [...] Dental: N/A PFT's: N/A ( per CTS tariff expert - Per Dr. Bernal okay to proceed [...] of this encounter (statuses as of 08/16/2022) [facility] History of Past illness Narrative* Problem Noted [...] Dental: N/A PFT's: N/A ( per CTS tariff expert - Per Dr. Dolores henry to proceed [...] of this encounter (statuses as of 10/18/2022) [facility] History of Past illness Narrative* Problem Noted [...] inotropic support postoperatively. Plan: Epinephrine weaned off 5/10. Titrate Dobutamine infusion to maintain CI >2.2. [...] Dental: N/A PFT's: N/A ( per CTS tariff expert - Per Dr. Bernal okay to proceed [...] of this encounter (statuses as of 10/31/2022) [facility]* Diagnosis PCO (posterior capsular opacification), right- Primary After-cataract, unspecified Pseudophakia, right eye Lens replaced by other means Combined forms of age-related cataract of left eye Other and combined forms of senile cataract Full thickness macular hole, right documented in this encounter [facility]* Diagnosis Combined forms of age-related cataract of left eye- Primary Other and combined forms of senile cataract documented in this encounter [facility]* Diagnosis Combined forms of age-related cataract of left eye- Primary Other and combined forms of senile cataract Combined forms of age-related cataract of left eye Other and combined forms of senile cataract documented in this encounter [facility] Summary Purpose Family History No Family History Records FoundNo Family History Records FoundNo Family History Records FoundNo Family History Records FoundNo Family History Records FoundNo Family History Records FoundNo Family History Records Found Advance Directives No Advanced Directives Records FoundDocuments on File Type Date Recorded 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 Advance Directive(s) 01/16/2020 9:56 PM [...] list: All Problems Smoker / SNOMED CT [id number] / Confirmed Added secondary to documentation in [...] section and content) DATE CREATED AUTHOR 02/21/2018 [facility] DATE CREATED AUTHOR AUTHOR'S ORGANIZ ATION 02/25/2018 [facility] DATE CREATED AUTHOR AUTHOR'S ORGANIZ ATION 04/19/2019 [facility] DATE CREATED AUTHOR AUTHOR'S ORGANIZ ATION 08/22/2019 [facility] DATE CREATED AUTHOR AUTHOR'S ORGANIZ ATION 11/02/2022 [facility] DATE CREATED AUTHOR AUTHOR'S ORGANIZ ATION 12/09/2022 [facility] DATE CREATED AUTHOR AUTHOR'S ORGANIZ ATION 09/10/2023 [facility] Source Comments (unrecognize d section and content) In the event this informatio n is protected by the Federal Confidentiality of Alcohol and Drug Abuse Patient Records regulations: The Federal rules restrict any use of the information to criminally investigate or prosecute any alcohol or drug abuse patient.[facility] event this information is protected by the Federal Confidentiality of Alcohol and Drug Abuse Patient Records regulations: The Federal rules restrict any use of the information to criminally investigate or prosecute any alcohol or drug abuse patient.[facility] the event this information is protected by the Federal Confidentiality of Alcohol and Drug Abuse Patient Records regulations: The Federal rules restrict any use of the information to criminally investigate or prosecute any alcohol or drug abuse patient.[facility] the event this information is protected by the Federal Confidentiality of Alcohol and Drug Abuse Patient Records regulations: The Federal rules restrict any use of the information to criminally investigate or prosecute any alcohol or drug abuse patient.[facility] Reason for Visit (unrecogniz ed section and content) Reason Comments Cataract Evaluation Left eye Posterior Capsule Opacification Evaluati on Right eye Specialty Diagnoses / Procedures Referred By Contac t Referred To Contact OPHTHALMOLOGY Diagnoses Combined forms of age-related cataract, bilateral Laser Yag Procedures POST-CATARACT LASER SURGERY YAG SOLAL Darian Chowdhury [address] [place] [address] [address] Referral ID Status Reason Start Date Expiration Date Visits Re quested Visits Authorized [id number] Closed 03/21/2022 09/27/2022 1 1 Reason Comments Appointment Reason Comments Pre-Op Exam Care Teams (unrecognized sec tion and content) Proof Operator Relationship Specialty Start Date End Date Kayleigh Gay MD PCP - General Family Medicine 06/17/15 Kayleigh Gay MD Family Medicine 06/17/15 Proof Operator Relationship Specialty Start Date End Date Kayleigh Gay MD PCP - General Family Medicine 06/17/15 Kayleigh Gay MD [facility] Medicine 06/17/15 Proof Operator Relationship Specialty Start Date End Date Kayleigh Gay MD PCP - General Family Medicine 06/17/15 Kayleigh Gay MD [facility] 06/17/15 Proof Operator Relationship Specialty Start Date End Date Kayleigh Gay MD PCP - General Family Medicine 06/17/15 Kayleigh Gay MD [facility] 06/17/15 FOR RECORDS PERTAINING TO PATIENTS WHO [...] BE BASED ON THE PRIMARY CLINICAL RECORDS. [facility] [employer] [facility]. provides no warranty or guarantee of the accuracy or completeness of information in this document.
== END 2023-10-01 14:14 | disposition home or self-care (01) ==
LOC: PST 14:13
PROVIDERS: PCP Family Medicine; Visit Provider Surgery
DX: Z01.818 Encounter for other preprocedural examination (principal); K22.70 Barrett's esophagus without dysplasia; Z80.0 Family history of malignant neoplasm of digestive organs

== ENCOUNTER 2023-10-10 09:32 | Day surgery (SDC) | payer MEDICARE, SELFPAY ==
--- NOTE | 2023-10-10 09:17 | PM.GSPRC ---
Date of procedure: 10/10/23 Indications for Procedure: constipation; history of Perry's esophagus Pre-op diagnosis: constipation; history of Perry's esophagus Post-op diagnosis: other (gastritis without hemorrhage; esophagitis; excessive diverticulosis) Procedure: colonoscopy EGD with biopsy distal esophagus Findings: superficial gastritis without hemorrhage; diverticulosis extensive Anesthesia: MAC Surgeon: Rylan Zhang Procedure Summary: PROCEDURE: The patient was taken to the Endoscopy Suite, placed in the left lateral recumbent position, given IV sedation as above. the Olympus EGD scope was advanced under direct visualization into the posterior pharynx esophagus stomach through the pylorus into the 1st 2nd 3rd and 4th portions of the duodenum.the duodenum was normal. The scope was withdrawn from the duodenum into the stomach which was retroflexed on itself when the GE junction. She had some mild bilateral retention. She has significant gastritis which biopsies were taken and hemostasis maintained. The scope was withdrawn to the distal esophagus where she had mild esophagitis minimal Perry's and biopsies were taken and hemostasis maintained the rest of the esophagus was completely normal. A rectal digital exam was performed. The sphincter tone was found to be normal. No rectal masses were appreciated. The Olympus video colonoscope was advanced under direct visualization to the rectum, sigmoid colon, descending colon, transverse colon and ascending colon to the ileocecal valve with extreme difficulty because of tortuosity of the sigmoid colon. She had ex excessive diverticulosis multiple large. The underside of the valve was seen. The scope was slowly withdrawn with air being desufflated as it was withdrawn. No gross tumors polyps were seen. She had multiple diverticuli large noted in the descending and sigmoid colon area. The patient tolerated the procedure well and went to the Recovery Area in satisfactory condition. I recommend the patient use a bulk laxative on a regular basis and follow up as needed.she does not need another colonoscopy due to her age. She may follow-up when necessary. Estimated blood loss (mL): 0 Specimens: antral and esophageal biopsies Complications: No Condition: stable Disposition: PACU
[2023-10-10 09:48] VITALS: BMI 22.2
--- OUTSIDE RECORDS SUMMARY | 2023-10-10 09:49 | XMS_ITS | CCD ---
Author Name Unknown Address [address] [place] [address] Organization [facility] Emergency Department Care Team Providers Care Paving Foreman Name Role Phone DUSTIN MCMAHON K Unavailable [...] Unavailable Kayleigh Gay MD Primary Care Provider [phone] Kayleigh Gay MD Unavailable KATIE V, [...] ADRI, HAWA Admitting Unavailable HOY ., DR IVCTOR Primary Care Unavailable ADRI, HAWA Attending Unavailable [...] Consulting Unavailable ELTAHAWY, EHAB Attending Unavailable SANAULLAH, MHAAMED Referring Unavailable SANAULLAH, MAHAMED Referring Unavailable IVANIA, [...] Allopurinol; Translations: [ALLOPURINOL] Drug Allergy 5 Intolerance [facility] (6 sources) diphtheria toxoid vaccine, inactivated / tetanus toxoid vaccine, inactivated; Translations: [TETANUS AND DIPHTHER. TOX (PF)] Drug Allergy 8 Intolerance [facility] (5 sources) Isosorbide; Translations: [ISOSORBIDE MONONITRATE] Drug Allergy 6 Intolerance [facility] (5 sources) tetanus toxoid vaccine, inactivated; Translations: [TETANUS TOXOID ADSORBED] Drug Allergy 5 Other: See Comments [facility] (1 source) Isosorbide Dinitrate; Translations: [ISOSORBIDE DINITRATE] Drug Allergy 6 [facility] (1 source) Spironolactone; Translations: [SPIRONOLACTONE ] Drug Allergy 3 [facility] (1 source) TETANUS VACCINES AND TOXOID; Translations: [TETANUS VACCINES AND TOXOID] Propensity to adverse reactions to drug (disorder) 5 [facility] Rep[facility] Medications Current Medications Medication Drug [...] Coronary atherosclerosis; Translations: [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 Judy at Dr. Zhang' office made aware via fax. [facility] [address] Willian henderson' office called requesting Darek westley Yennyquis 3 days prior to EGD/colonscopy scheduled on 09/05/2023. Please advise. [facility] Office Visiton 08-01-2023 Follow-up visit [id number] Darek Mejía 1950 Date Provider Department Center 08/01/2023 OPAL VIVEROS Family History Problem Relation Age of Onset Coronary artery disease Father Diabetes Father Family Status - Relation Status Age at Father Level of Service:37036 MA OFFICE/OUTPATIENT ESTABLISHED HIGH MDM 40-54 MIN [facility] 30on 07-22-2023 30 Problem: Pain - Adul [...] dysrhythmias or at baseline Outcome: Progressing Normal [facility] 30 The patient is Moderately Stable [...] dysrhythmias or at baseline Outcome: Progressing Normal [facility] ANTI-XA (HEPARIN LEVEL)on HEPARIN UNFRACTIONATED (U/ML) IN PPP BY CHROMOGENIC METHOD 0.17 IU/mL Low 0.3-0.7 [facility] Comment on above: Result Comment: Bayard roxaban and Apixaban will interfere with the anti Xa assay used to monitor UFH and LMWH. Performed By: #### L [id number] #### [facility] ([facility]) [address] [place] [address] HEPARIN UNFRACTIONATED (U/ML) IN PPP BY CHROMOGENIC METHOD 0.21 IU/mL Low 0.3-0.7 [facility] Comment on above: Result Comment: Clotilde roxaban and Apixaban will interfere with the anti Xa assay used to monitor UFH and LMWH. Performed By: #### L [id number] #### [facility] ([facility]) [address] [place] [address] CBCon 07-22-2023 Erythrocyte distribution width (RBC) [Ratio] 16.5 % High 11.5-15.0 [facility] Comment on above: Performed By: #### L [id number] #### [facility] ([facility]) [address] [place] [address] ERYTHROCYTE MEAN CORPUSCULAR HEMOGLOBIN CONCENTRATION (G/DL) BY AUTOMATED 32.0 g/dL Normal 32.0-35.0 [facility] Comment on above: Performed By: #### L [id number] #### [facility] [address] [place] [address] Hematocrit (Bld) [Volume fraction] 29.1 % Low 36.0-48.0 [facility] Comment on above: Performed By: #### L [id number] #### [facility] ([facility]) [address] [place] [address] Hemoglobin (Bld) [Mass/Vol] 9.3 g/dL Low 12.0-15.0 [facility] Comment on above: Performed By: #### L [id number] #### [facility] ([facility]) [address] [place] [address] MCH (RBC) [Entitic mass] 27.0 pg Normal 27.0-33.0 [facility] Comment on above: Performed By: #### L [id number] #### [facility] ([facility]) [address] [place] [address] MCV (RBC) [Entitic vol] 84.6 fL Normal 82.0-98.0 [facility] Comment on above: Performed By: #### L [id number] #### [facility] ([facility]) [address] [place] [address] PLATELETS (10*3/UL) IN BLOOD AUTOMATED COUNT 202 10*3/uL Normal 150-400 [facility] Comment on above: Performed By: #### L [id number] #### [facility] ([facility]) [address] [place] [address] RBC (Bld) [#/Vol] 3.44 10*6/uL Low 3.80-5.00 [facility] Comment on above: Performed By: #### L [id number] #### [facility] ([facility]) [address] [place] [address] WBC (Bld) [#/Vol] 6.43 10*3/uL Normal 4.00-10.60 [facility] Comment on above: Performed By: #### L [id number] #### [facility] (BEAK[facility]) [address] [place] [address] 30on 07-21-2023 30 Problem: Pain - Adul [...] and behaviors that affect risk of falls Spring fall precautions as indicated by assessment Educate [...] for the shift include VSS; safety Normal [facility] 30 The patient is Moderately Stable [...] or at baseline Outcome: Not Progressing Normal [facility] ANTI-XA (HEPARIN LEVEL)on HEPARIN UNFRACTIONATED (U/ML) IN PPP BY CHROMOGENIC METHOD 0.14 IU/mL Invalid Interpretation Code 0.3-0.7 [facility] Comment on above: Result Comment: Bayard roxaban and Apixaban will interfere with the anti Xa assay used to monitor UFH and LMWH. Performed By: #### L [id number] ####[facility] ([facility])[address] [place] [address] HEPARIN UNFRACTIONATED (U/ML) IN PPP BY CHROMOGENIC METHOD <0.10 Invalid Interpretation Code 0.3-0.7 [facility] Comment on above: Result Comment: Bayard roxaban and Apixaban will interfere with the anti Xa assay used to monitor UFH and LMWH. Performed By: #### L [id number] #### [facility] ([facility]) [address] [place] [address] HEPARIN UNFRACTIONATED (U/ML) IN PPP BY CHROMOGENIC METHOD <0.10 Invalid Interpretation Code 0.3-0.7 [facility] Comment on above: Order Comment: Check anti-Xa level every 6 hours while on heparin infusion, or per protocol. Result Comment: Clotilde roxaban and Apixaban will interfere with the anti Xa assay used to monitor UFH and LMWH. Performed By: #### L [id number] #### [facility] ([facility]) [address] [place] [address] B-TYPE NATRIURETIC PEPTIDEon 07-21-2023 Natriuretic peptide B (Bld) [Mass/Vol] 841 pg/mL High 0-100 [facility] Comment on above: Performed By: #### L [id number] #### [facility] ([facility]) [address] [place] [address] COMPREHENSIVE METABOLIC PANE Oscar 07-21-2023 Albumin [Mass/Vol] 2.9 g/dL Low 3.5-5.7 [facility] Comment on above: Performed By: #### L [id number] #### [facility] ([facility]) [address] [place] [address] ALP [Catalytic activity/Vol] 97 U/L Normal 34-104 [facility] Comment on above: Performed By: #### L [id number] #### [facility] ([facility]) [address] [place] [address] ALT [Catalytic activity/Vol] 12 U/L Normal 7-52 [facility] Comment on above: Performed By: #### L [id number] #### [facility] ([facility]) [address] [place] [address] Anion gap [Moles/Vol] 11 mmol/L Normal 7-20 [facility] Comment on above: Performed By: #### L [id number] #### [facility] ([facility]) [address] [place] [address] AST [Catalytic activity/Vol] 21 U/L Normal 13-39 [facility] Comment on above: Performed By: #### L [id number] #### [facility] ([facility]) [address] [place] [address] Bilirubin [Mass/Vol] 0.6 mg/dL Normal 0.3-1.0 [facility] Comment on above: Performed By: #### L [id number] #### [facility] ([facility]) [address] [place] [address] Calcium [Mass/Vol] 9.7 mg/dL Normal 8.6-10.3 [facility] Comment on above: Performed By: #### L [id number] #### [facility] ([facility]) [address] [place] [address] Chloride [Moles/Vol] 108 mmol/L High 98-107 [facility] Comment on above: Performed By: #### L [id number] #### [facility] ([facility]) [address] [place] [address] CO2 [Moles/Vol] 23 mmol/L Normal 21-31 [facility] Comment on above: Performed By: #### L [id number] #### [facility] ([facility]) [address] [place] [address] Creatinine [Mass/Vol] 0.68 mg/dL Normal 0.60-1.20 [facility] Comment on above: Performed By: #### L [id number] #### [facility] ([facility]) [address] [place] [address] GLOMERULAR FILTRATION RATE ML/MIN/1.73 SQ M.PREDICTED 91.3 mL/min/1.73m*2 Normal >60.0 [facility] Comment on above: Result Comment: The [facility]???s estimated glomerular filtration rate (eGFR) will [...] individuals. Performed By: #### L [id number] #### [facility] ([facility]) [address] [place] [address] Glucose [Mass/Vol] 92 mg/dL Normal 70-100 [facility] Comment on above: Performed By: #### L [id number] #### [facility] ([facility]) [address] [place] [address] Potassium [Moles/Vol] 3.8 mmol/L Normal 3.5-5.1 [facility] Comment on above: Performed By: #### L [id number] #### [facility] [address] [place] [address] Protein [Mass/Vol] 5.4 g/dL Low 6.0-8.3 [facility] Comment on above: Performed By: #### L [id number] #### [facility] ([facility]) [address] [place] [address] Sodium [Moles/Vol] 138 mmol/L Normal 136-145 [facility] Comment on above: Performed By: #### L [id number] #### [facility] [address] [place] [address] Urea nitrogen [Mass/Vol] 19 mg/dL Normal 7-25 [facility] Comment on above: Performed By: #### L [id number] #### [facility] ([facility]) [address] [place] [address] UREA NITROGEN/CREATININE (MASS RATIO) IN SER/PLAS 27.9 Normal [facility] Comment on above: Performed By: #### L [id number] #### [facility] ([facility]) [address] [place] [address] HEMOGLOBIN AND HEMATOCRIT, B LOODon 07-21-2023 Hematocrit (Bld) [Volume fraction] 29.9 % Low 36.0-48.0 [facility] Comment on above: Performed By: #### L [id number] #### [facility] ([facility]) [address] [place] [address] Hemoglobin (Bld) [Mass/Vol] 9.5 g/dL Low 12.0-15.0 [facility] Comment on above: Performed By: #### L [id number] #### [facility] ([facility]) [address] [place] [address] MAGNESIUMon 07-21-2023 Magnesium [Mass/Vol] 1.5 mg/dL Low 1.9-2.7 [facility] Comment on above: Performed By: #### L [id number] ####[facility] ([facility])[address] [place] [address] T3, FREEon 07-21-2023 TRIIODOTHYRONINE (T3) FREE (PG/ML) IN SER/PLAS 3.7 pg/mL Normal 2.5-3.9 [facility] Comment on above: Performed By: #### L [id number] ####[facility] ([facility])[address] [place] [address] T4, FREEon 07-21-2023 THYROXINE (T4) FREE (NG/DL) IN SER/PLAS 1.14 ng/dL Normal 0.71-1.85 [facility] Comment on above: Performed By: #### L [id number] ####[facility] ([facility])[address] [place] [address] TROPONIN Ion 07-21-2023 Troponin I.cardiac [Mass/Vol] 0.04 ng/mL Normal 0.00-0.04 [facility] Comment on above: Performed By: #### L [id number] #### [facility] ([facility]) [address] [place] [address] Troponin I.cardiac [Mass/Vol] 0.05 ng/mL High 0.00-0.04 [facility] Comment on above: Performed By: #### L [id number] ####[facility] ([facility])[address] [place] [address] VITAMIN D 1,25 DIHYDROXYon 1 09-20-2022 VITAMIN D 1,25-DIHYDROXY 32.9 pg/mL Normal 19.9-79.3 [facility] Comment on above: Result Comment: INTE RPRETIVE INFORMATION: Vitamin D, 1,25-Dihydroxy This test is primarily indicated during patient evaluation for hypercalcemia and renal failure. A normal result does not rule out Vitamin D deficiency. The recommended test for diagnosing Vitamin D deficiency is Vitamin D 25-hydroxy. Performed By: [facility] [address] [place] [address] [employer]: Zeus Ventura MD, PhD CLIA Number: [id number] Performed By: #### L [id number] ####[facility] (JONNY)[address] [place] [address] VITAMIN D 25 HYDROXYon 07-21 CALCIDIOL (25 [place] VITAMIN D3) (NG/ML) IN SER/PLAS 23.2 ng/mL Low 30.0-80.0 [facility] Comment on above: Result Comment: >80. 0 Toxicity possible Performed By: #### L [id number] #### [facility] ([facility]) [address] [place] [address] 30on 07-20-2023 30 Daily Case Managemen t Update Multidisciplinary rounds have been completed. End of shift note. Per Progress Note/s: ER admit from hospital plan administrator office; new onset A-Fib. Heparin gtt. Cardiac [...] Reason for OT? Answer: fall 07/19/232117 Normal [facility] 30 Problem: Pain - Adul t [...] and behaviors that affect risk of falls Spring fall precautions as indicated by assessment Educate [...] goals for the shift include VSS; safety [facility] Sariah 07-20-2023 ISHMAEL Patient: Darek Mejía Choose [...] fellow and attending. Additional Equipment Requests Normal [facility] ANES Patient: Darek Mejía Choose an [...] fellow and attending. Additional Equipment Requests Normal [facility] ANTI-XA (HEPARIN LEVEL)on HEPARIN UNFRACTIONATED (U/ML) IN PPP BY CHROMOGENIC METHOD <0.10 Invalid Interpretation Code 0.3-0.7 [facility] Comment on above: Order Comment: Check anti-Xa level every 6 hours while on heparin infusion, or per protocol. Result Comment: Bayard roxaban and Apixaban will interfere with the anti Xa assay used to monitor UFH and LMWH. Performed By: #### L [id number] #### [facility] ([facility]) [address] [place] [address] CBCon 07-20-2023 Erythrocyte distribution width (RBC) [Ratio] 16.4 % High 11.5-15.0 [facility] Comment on above: Performed By: #### L [id number] #### [facility] ([facility]) [address] [place] [address] ERYTHROCYTE MEAN CORPUSCULAR HEMOGLOBIN CONCENTRATION (G/DL) BY AUTOMATED 32.2 g/dL Normal 32.0-35.0 [facility] Comment on above: Performed By: #### L [id number] #### [facility] ([facility]) [address] [place] [address] Hematocrit (Bld) [Volume fraction] 32.3 % Low 36.0-48.0 [facility] Comment on above: Performed By: #### L [id number] #### [facility] ([facility]) [address] [place] [address] Hemoglobin (Bld) [Mass/Vol] 10.4 g/dL Low 12.0-15.0 [facility] Comment on above: Performed By: #### L [id number] #### [facility] ([facility]) [address] [place] [address] MCH (RBC) [Entitic mass] 26.8 pg Low 27.0-33.0 [facility] Comment on above: Performed By: #### L [id number] #### [facility] ([facility]) [address] [place] [address] MCV (RBC) [Entitic vol] 83.2 fL Normal 82.0-98.0 [facility] Comment on above: Performed By: #### L [id number] #### [facility] ([facility]) [address] [place] [address] PLATELETS (10*3/UL) IN BLOOD AUTOMATED COUNT 262 10*3/uL Normal 150-400 [facility] Comment on above: Performed By: #### L [id number] #### [facility] ([facility]) [address] [place] [address] RBC (Bld) [#/Vol] 3.88 10*6/uL Normal 3.80-5.00 [facility] Comment on above: Performed By: #### L [id number] #### [facility] ([facility]) [address] [place] [address] WBC (Bld) [#/Vol] 5.76 10*3/uL Normal 4.00-10.60 [facility] Comment on above: Performed By: #### L [id number] #### [facility] [address] [place] [address] CONSULTon 07-20-2023 CONSULT --- Attestation signed by [...] CKMB, CKM (more content not included)... Normal [facility] HPon 07-20-2023 History Of Present Illness [...] further evaluate symptoms Faith Hassan DO, MPH Paper Testing Supervisor [facility] Normal [facility] HP H&P reviewed. The patient was examined and there are no changes to the H&P. Normal [facility] ANTI-XA (HEPARIN LEVEL)on HEPARIN UNFRACTIONATED (U/ML) IN PPP BY CHROMOGENIC METHOD <0.10 Invalid Interpretation Code 0.3-0.7 [facility] Comment on above: Order Comment: Check anti-Xa level every 6 hours while on heparin infusion, or per protocol. Result Comment: Bayard roxaban and Apixaban will interfere with the anti Xa assay used to monitor UFH and LMWH. Performed By: #### L [id number] #### [facility] ([facility]) [address] [place] [address] APTTon 07-19-2023 ACTIVATED PARTIAL THROMBOPLASTIN TIME IN PPP BY COAGULATION ASSAY 29.1 Seconds Normal 25.0-35.0 [facility] Comment on above: Order Comment: Basel ine aPTT before initiating heparin infusion. Result Comment: Clin ical significance of the APTT is questionable in the presence of heparin. Performed By: #### L [id number] ####[facility] ([facility])[address] [place] [address] CBC WITH AUTO DIFFERENTIALon 07-19-2023 Basophils (Bld) [#/Vol] 0.07 10*3/uL Normal 0.00-0.20 [facility] Comment on above: Performed By: #### L [id number] #### [facility] ([facility]) [address] [place] [address] Basophils/100 WBC (Bld) 1.1 % High 0.0-1.0 [facility] Comment on above: Performed By: #### L [id number] #### [facility] ([facility]) [address] [address] Eosinophils (Bld) [#/Vol] 0.10 10*3/uL Normal 0.00-0.50 [facility] Comment on above: Performed By: #### L [id number] #### [facility] ([facility]) [address] [place] [address] Eosinophils/100 WBC (Bld) 1.6 % Normal 0.0-6.0 [facility] Comment on above: Performed By: #### L [id number] #### [facility] ([facility]) [address] [place] [address] Erythrocyte distribution width (RBC) [Ratio] 16.4 % High 11.5-15.0 [facility] Comment on above: Performed By: #### L [id number] #### [facility] (BEAKER) [address] [place] [address] ERYTHROCYTE MEAN CORPUSCULAR HEMOGLOBIN CONCENTRATION (G/DL) BY AUTOMATED 31.8 g/dL Low 32.0-35.0 [facility] Comment on above: Performed By: #### L [id number] #### [facility] ([facility]AK[facility]) [address] [place] [address] Hematocrit (Bld) [Volume fraction] 35.5 % Low 36.0-48.0 [facility] Comment on above: Performed By: #### L [id number] #### [facility] (BEAKER) [address] [place] [address] Hemoglobin (Bld) [Mass/Vol] 11.3 g/dL Low 12.0-15.0 [facility] Comment on above: Performed By: #### L [id number] #### [facility] (BEAKER) [address] [place] [address] Immature granulocytes (Bld) [#/Vol] 0.02 10*3/uL Normal 0.00-0.20 [facility] Comment on above: Performed By: #### L [id number] #### [facility] (BEAKER) [address] [place] [address] Immature granulocytes/100 WBC (Bld) 0.3 % Normal 0.0-1.0 [facility] Comment on above: Performed By: #### L [id number] #### [facility] (BEAKER) [address] [place] [address] Lymphocytes (Bld) [#/Vol] 1.76 10*3/uL Normal 1.20-4.00 [facility] Comment on above: Performed By: #### L [id number] #### [facility] (BEAKER) [address] [place] [address] Lymphocytes/100 WBC (Bld) 28.5 % Normal 20.0-45.0 [facility] Comment on above: Performed By: #### L [id number] #### [facility] (BEAKER) [address] [place] [address] MCH (RBC) [Entitic mass] 26.9 pg Low 27.0-33.0 [facility] Comment on above: Performed By: #### L [id number] #### [facility] ([facility]) [address] [place] [address] MCV (RBC) [Entitic vol] 84.5 fL Normal 82.0-98.0 [facility] Comment on above: Performed By: #### L [id number] #### [facility] ([facility]) [address] [place] [address] Monocytes (Bld) [#/Vol] 0.48 10*3/uL Normal 0.10-1.00 [facility] Comment on above: Performed By: #### L [id number] #### [facility] ([facility]) [address] [place] [address] Monocytes/100 WBC (Bld) 7.8 % Normal 5.0-12.0 [facility] Comment on above: Performed By: #### L [id number] #### [facility] ([facility]) [address] [place] [address] Neutrophils (Bld) [#/Vol] 3.74 10*3/uL Normal 1.60-7.60 [facility] Comment on above: Performed By: #### L [id number] #### [facility] ([facility]) [address] [place] [address] Neutrophils/100 WBC (Bld) 60.7 % Normal 40.0-72.0 [facility] Comment on above: Performed By: #### L [id number] #### [facility] ([facility]) [address] [place] [address] NRBC (PER 100 WBCS) BY AUTOMATED COUNT 0.0 % Normal 0 [facility] Comment on above: Performed By: #### L [id number] #### [facility] [address] [place] [address] PLATELETS (10*3/UL) IN BLOOD AUTOMATED COUNT 289 10*3/uL Normal 150-400 [facility] Comment on above: Performed By: #### L [id number] #### [facility] ([facility]) [address] [place] [address] RBC (Bld) [#/Vol] 4.20 10*6/uL Normal 3.80-5.00 [facility] Comment on above: Performed By: #### L [id number] #### [facility] ([facility]) [address] [place] [address] WBC (Bld) [#/Vol] 6.17 10*3/uL Normal 4.00-10.60 [facility] Comment on above: Performed By: #### L [id number] #### [facility] ([facility]) [address] [place] [address] COMPREHENSIVE METABOLIC PANE Oscar 07-19-2023 Albumin [Mass/Vol] 3.7 g/dL Normal 3.5-5.7 [facility] Comment on above: Performed By: #### L [id number] #### [facility] ([facility]) [address] [place] [address] ALP [Catalytic activity/Vol] 132 U/L High 34-104 [facility] Comment on above: Performed By: #### L [id number] #### [facility] ([facility]) [address] [place] [address] ALT [Catalytic activity/Vol] 17 U/L Normal 7-52 [facility] Comment on above: Performed By: #### L [id number] #### [facility] ([facility]) [address] [place] [address] Anion gap [Moles/Vol] 11 mmol/L Normal 7-20 [facility] Comment on above: Performed By: #### L [id number] #### [facility] ([facility]) [address] [place] [address] AST [Catalytic activity/Vol] 23 U/L Normal 13-39 [facility] Comment on above: Performed By: #### L [id number] #### [facility] [address] [place] [address] Bilirubin [Mass/Vol] 0.9 mg/dL Normal 0.3-1.0 [facility] Comment on above: Performed By: #### L [id number] #### [facility] ([facility]) [address] [place] [address] Calcium [Mass/Vol] 10.7 mg/dL High 8.6-10.3 [facility] Comment on above: Performed By: #### L [id number] #### [facility] ([facility]) [address] [place] [address] Chloride [Moles/Vol] 104 mmol/L Normal 98-107 [facility] Comment on above: Performed By: #### L [id number] #### [facility] ([facility]) [address] [place] [address] CO2 [Moles/Vol] 28 mmol/L Normal 21-31 [facility] Comment on above: Performed By: #### L [id number] #### [facility] ([facility]) [address] [place] [address] Creatinine [Mass/Vol] 0.66 mg/dL Normal 0.60-1.20 [facility] Comment on above: Performed By: #### L [id number] #### [facility] ([facility]) [address] [place] [address] GLOMERULAR FILTRATION RATE ML/MIN/1.73 SQ M.PREDICTED 92.0 mL/min/1.73m*2 Normal >60.0 [facility] Comment on above: Result Comment: The [facility]???s estimated glomerular filtration rate (eGFR) will [...] individuals. Performed By: #### L [id number] #### [facility] ([facility]) [address] [place] [address] Glucose [Mass/Vol] 131 mg/dL High 70-100 [facility] Comment on above: Performed By: #### L [id number] #### [facility] ([facility]) [address] [place] [address] Potassium [Moles/Vol] 3.5 mmol/L Normal 3.5-5.1 [facility] Comment on above: Performed By: #### L [id number] #### [facility] ([facility]) [address] [place] [address] Protein [Mass/Vol] 6.8 g/dL Normal 6.0-8.3 [facility] Comment on above: Performed By: #### L [id number] #### [facility] ([facility]) [address] [place] [address] Sodium [Moles/Vol] 139 mmol/L Normal 136-145 [facility] Comment on above: Performed By: #### L [id number] #### [facility] ([facility]) [address] [place] [address] Urea nitrogen [Mass/Vol] 15 mg/dL Normal 7-25 [facility] Comment on above: Performed By: #### L [id number] #### [facility] ([facility]) [address] [place] [address] UREA NITROGEN/CREATININE (MASS RATIO) IN SER/PLAS 22.7 Normal [facility] Comment on above: Performed By: #### L [id number] #### [facility] ([facility]) [address] [place] [address] [facility] 07-19-2023 [facility] Cardiology Clinic Note Chief Complaint: Patient [...] with ejection (more content not included)... Normal [facility] MAGNESIUMon 07-19-2023 Magnesium [Mass/Vol] 1.6 mg/dL Low 1.9-2.7 [facility] Comment on above: Performed By: #### L [id number] ####[facility] (BEAKER)[address] [place] [address] Office Visiton 07-19-2023 Follow-up visit [id number] Darek Mejía 1950 F Date Provider Department Doyle 07/19/2023 Areli-OPAL CARVALHO MARIANA Roy Family History Problem Relation Age of Onset Coronary artery disease Father Diabetes Father Family Status - Relation Status Age at Father Level of Service:65514 MA OFFICE/OUTPATIENT ESTABLISHED HIGH MDM 40-54 MIN Normal [facility] T4, FREEon 07-19-2023 THYROXINE (T4) FREE (NG/DL) IN SER/PLAS 1.31 ng/dL Normal 0.71-1.85 [facility] Comment on above: Performed By: #### L [id number] #### [facility] ([facility]) [address] [place] [address] TSH3 REFLEX TO FT4on 023 THYROTROPIN (MIU/L) IN SER/PLAS BY DETECTION LIMIT <= 0.05 MIU/L 0.06 mIU/L Low 0.34-5.60 [facility] Comment on above: Performed By: #### L [id number] #### [facility] (JONNY) [address] [place] [address] 36on 07-02-2023 36 Sandy just did patien t's echo. She came over to the office to make us aware that she sounded like she was in afib, and patient didn't recall ever being told she had this. She did ECG. I have assigned it to you in social media specialist. Please advise. Thanks. [facility] Office Visiton 04-23-2023 Follow-up visit [id number] Darek Mejía 1950 F Date Provider Department Center 04/23/2023 OPAL VIVEROS Family History Problem Relation Age of Onset Coronary artery disease Father Diabetes Father Family Status - Relation Status Age at Father Level of Service:22947 MA OFFICE/OUTPATIENT ESTABLISHED MOD MDM 30-39 MIN [facility] Office Visiton 01-31-2023 Follow-up visit [id number] Darek Mejía 1950 F Date Provider Department Center 01/31/2023 HAWA BACA Family History Problem Relation Age of Onset Coronary artery disease Father Diabetes Father Family Status - Relation Status Age at Father Level of Service:52180 MA OFFICE/OUTPATIENT ESTABLISHED MOD MDM 30-39 MIN [facility] 36on 01-11-2023 36 I am putting in a script for aldactone, then she needs BMP in 1 week to assess renal function and potassium level. Have her f/U in 2-4 weeks to review b/p please [facility] Orders Onlyon 01-11-2023 Orders Only [id number] Darek Mejía 1950 F Date Provider Department Center 01/11/2023 HAWA BACA. Family History Problem Relation Age of Onset Coronary artery disease Father Diabetes Father Family Status - Relation Status Age at Father [facility] 36on 01-10-2023 35 . [facility] Office Visiton 12-21-2022 Follow-up visit [id number] Darek Mejía 1950 F Date Provider Department Center 12/21/2022 HAWA BACA [facility] Family History Problem Relation Age of Onset Coronary artery disease Father Diabetes Father Family Status - Relation Status Age at Father Level of Service:86705 MA OFFICE/OUTPATIENT ESTABLISHED MOD MDM 30-39 MIN Reason for Visit and Comments: Coronary Artery Disease [187] Congestive Heart Failure [127] Hypertension [291966] Normal [facility] FREE T3on 11-30-2022 FREE T3 2.19 pg/mlL Normal 2.18-3.98 [facility] Comment on above: Performed By: #### T 4, FT3, TSH #### [facility] [address] [place] [address] Dr. Rich Pham T4on 11-30-2022 T4 [Mass/Vol] 11.10 ug/dL Normal 4.80-13.90 [facility] Comment on above: Performed By: #### T 4, FT3, TSH #### [facility] [address] [place] [address] Dr. Rich Pham TSHon 11-30-2022 TSH 0.525 uIU/mL Normal 0.358-3.740 [facility] Comment on above: Performed By: #### T 4, FT3, TSH #### [facility] [address] [place] [address] Dr. Rich Pham ANES POSTPROC EVALon 023 ANES POSTPROC EVAL HNO ID: [id number] Author: David Dunn II, DO Service: Anesthesiology Author Type: Anesthesiologist Type: Anesthesia Postprocedure Evaluation Filed: 11/01/2022 12:35 PM Note Text: POST ANESTHESIA EVALUATION NOTE : 1950 Procedure Summary Date: 11/01/22 Room / Location: [place] [address] / [facility] Anesthesia Start: 1109 Anesthesia Stop: 113 Procedures: PHACOEMULSIFICATION CATARACT IMPLANT INTRAOCULAR LENS W/O ENDOSCOPIC CYCLOPHOTOCOAGULATION (Left: Eye) OPHTHALMIC BIOMETRY BY PARTIAL COHERENCE INTERFEROMETRY W/INTRAOCULAR LENS POWER CALCULATION (Left: Eye) Diagnosis: Combined forms of age-related cataract of left eye (Combined forms of age-related cataract of left eye [H25.812]) Surgeons: Alkesandar Wilson V, MD Responsible Provider: David Dunn [...] November 01, 2022 TIME: 12:35 PM CSN: [id number] Normal [facility] ANES PRE-OPon 11-01-2022 ANES PRE-OP HNO ID: [id number] Author: David Dunn II, DO Service: Anesthesiology Author Type: Anesthesiologist Type: Anesthesia Preprocedure Evaluation Filed: 11/01/2022 10:15 AM Note Text: ANESTHESIOLOGY DAY OF SURGERY NOTE : 1950 Procedure Information Date/Time: 11/01/22 1100 Procedures: PHACOEMULSIFICATION CATARACT IMPLANT INTRAOCULAR LENS W/O ENDOSCOPIC CYCLOPHOTOCOAGULATION (Left: Eye) OPHTHALMIC BIOMETRY BY PARTIAL COHERENCE INTERFEROMETRY W/INTRAOCULAR LENS POWER CALCULATION (Left: Eye) Location: [address] Surgeons: Aleksandar Wilson V, MD Estimated body mass index is 21.31 kg/m? as calculated from the following: Height as of 10/30/22: 167.6 cm (5' 6 ). Weight as of 10/30/22: 59.9 kg (132 lb). 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 Patient / Responsible Democrat agrees to proceed: yes Patient / Surrogate [...] November 01, 2022 TIME: 10:09 AM CSN: [id number] [facility] OPERATIVE NOon 11-01-2022 OPERATIVE NO HNO ID: [id number] Author: Aleksandar Wilson V, MD Service: Ophthalmology Author Type: Physician Type: Operative Report Filed: 11/01/2022 11:43 AM Note Text: OPERATIVE REPORT DATE OF SERVICE: November 01, 2022 PRIMARY SURGEON: Aleksandar Wilson M.D. REGISTERED ART THERAPIST: None Procedure(s) (LRB): PHACOEMULSIFICATION CATARACT IMPLANT INTRAOCULAR [...] corneal incision was created temporally with a [place] blade then a 2.4 mm keratome. The anterior chamber was reformed with Viscoat, after which the anterior capsule was opened centrally. Using the [employer] forceps a continuous curvilinear capsulorrhexis of approximately 5.5 mm round was created. Gentle hydrodissection was accomplished using preservative-free lidocaine on a 27-gauge cannula. Using the Renny phacoemulsification unit with the [employer] curved tip, the anterior chamber was entered [...] Implant Name Type Inv. Item Serial No. Aircraft Cleaner Lot No. LRB No. Used Action Model No. LENS IOL 0D +21 [employer] - [id number] Intraocular Lens LENS IOL 0D +21 [employer] [id number] [employer] Left 1 Implanted [id number] [...] 11:26 AM - Comanage with Dr Mccollum; [facility] Aleksandar WILSON MD Normal [facility] FREE T3on 10-30-2022 FREE T3 2.77 pg/mlL Normal 2.18-3.98 [facility] Comment on above: Performed By: #### F T3, TSH, BNP, T4 #### [facility] [address] [place] [address] Dr. 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 Author Type: Nurse Practitioner Type: [...] ACTIVE PROBLEM LIST Smoking Addiction Atherosclerosis of [place] Coronary Artery of [place] Heart Without Angina Pectoris Mild Left Ventricular Systolic Dysfunction Primary Hypertension Coronary Artery Disease Involving Coronary Bypass Graft of [place] Heart With Angina Pectoris (Hcc) Atelectasis Hypervolemia [...] OF URETHRAL STRICT HEART CATHETERIZATION 2003 at [facility] STONE SURGERY HX MASTECTOMY HX bilat [...] fevers. 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 Normal [facility] T4on 10-30-2022 T4 [Mass/Vol] 3.40 ug/dL Critically low 4.80-13.90 [facility] Comment on above: Performed By: #### F T3, TSH, BNP, T4 #### [facility] [address] [place], [place] [address] Dr. Rich Pham TSHon 10-30-2022 TSH 2.102 uIU/mL Normal 0.358-3.[address] [facility] Comment on above: Performed By: #### F T3, TSH, BNP, T4 #### [facility] [address] [place], [place] [address] Dr. Rich Pham [facility] 10-18-20[facility] (STANBERRYService Seeking) DAREK MEJÍA ([id number]) 1950 F Date Time Provider Department 10/18/22 PACC ROCKY PACHECO During your visit today, we recorded the following information about you: Haven MorenoFELTON 10/18/2022 1:19 PM Signed Called patient to [...] Resolved Smoking addiction [F17.200] 06/22/2015 Atherosclerosis of sioux coronary artery of na*06/22/2015 Mild left ventricular [...] Status:Closed by HAVEN MORENO on 10/18/22 Normal [facility] FREE T3on 08-30-2022 FREE T3 1.95 pg/mlL Critically low 2.18-3.98 [facility] Comment on above: Performed By: #### F T3, TSH, BNP, T4 #### [facility] [address] [place] [address] Dr. Rich Pham T4on 08-30-2022 T4 [Mass/Vol] 8.00 ug/dL Normal 4.80-13.[address] [facility] Comment on above: Performed By: #### F T3, TSH, BNP, T4 #### [facility] [address] [place] [address] [address] Rich Pham TSHon 08-30-2022 TSH 3.033 uIU/mL Normal 0.358-3.[address] [facility] Comment on above: Performed By: #### F T3, TSH, BNP, T4 #### [facility] [address] [place] [address] Dr. Rich Pham ECHOCARDIO M/2D COMPLETEon 1 10-17-2021 ECHOCARDIO M/2D COMPLETE Patient: DAREK MEJÍA Exam Date: 08/16/2022 : 1950 Gender:F Ordering : HAWA R[place] Admission #: [id number] Family : DR KAYLEIGH GAY . Order #: [id number] CLICK HERE TO VIEW EXAM ECHOCARDIOGRAM REPORT [...] Opal Carvalho M.D. on 08/18/2022 at 16:30 [facility] BNPon 07-24-2022 Natriuretic peptide B (Bld) [Mass/Vol] 1535.0 pg/mL Critically high <=900.0 [facility] Comment on above: Performed By: #### F T3, TSH, BNP, T4 #### [facility] [address] [place] [address] Dr. Rich Pham FREE T3on 07-24-2022 FREE T3 1.90 pg/mlL Critically low 2.18-3.98 [facility] Comment on above: Performed By: #### F T3, TSH, BNP, T4 #### [facility] [address] [place] [address] Dr. Rich Pham T4on 07-24-2022 T4 [Mass/Vol] 9.10 ug/dL Normal 4.80-13.[address] [facility] Comment on above: Performed By: #### F T3, TSH, BNP, T4 #### [facility] [address] [place] [address] Dr. Rich Pham TSHon 07-24-2022 TSH 1.057 uIU/mL Normal 0.358-3.[address] [facility] Comment on above: Performed By: #### F T3, TSH, BNP, T4 #### [facility] [address] [place] [address] Dr. Rich Pham INSULINon 06-20-2022 Insulin 7.0 uIU/mL Normal 2.6-24.9 [facility] Comment on above: Performed By: #### F T3, TSH, BNP, T4 #### [facility] [address] [place] [address] Dr. Rich Pham BNPon 06-19-2022 Natriuretic peptide B (Bld) [Mass/Vol] 962.0 pg/mL Critically high <=900.0 [facility] Comment on above: Performed By: #### F T3, TSH, BNP, T4 #### [facility] [address] [place] [address] Dr. Rich Pham CBC AUTO DIFFon 06-19-2022 BASO # 0.1 103/ul Normal 0.0-0.1 [facility] Comment on above: Performed By: #### F T3, TSH, BNP, T4 #### [facility] [address] [place] [address] Dr. Rich Pham Basophils/100 WBC (Bld) 1.3 % Normal 0.2-2.0 [facility] Comment on above: Performed By: #### F T3, TSH, BNP, T4 #### [facility] [address] [place] [address] Dr. Rich Pham EO # 0.1 103/ul Normal 0.0-0.7 [facility] Comment on above: Performed By: #### F T3, TSH, BNP, T4 #### [facility] [address] [place] [address] Dr. Rich Pham Eosinophils/100 WBC (Bld) 1.9 % Normal 0.9-7.0 [facility] Comment on above: Performed By: #### F T3, TSH, BNP, T4 #### [facility] [address] [place] [address] Dr. Rich Pham Erythrocyte distribution width (RBC) [Ratio] 13.7 % Normal 11.0-15.0 [facility] Comment on above: Performed By: #### F T3, TSH, BNP, T4 #### [facility] [address] [place] [address] Dr. Rihc Pham Hematocrit (Bld) [Volume fraction] 39.5 % Normal 36.0-48.0 [facility] Comment on above: Performed By: #### F T3, TSH, BNP, T4 #### [facility] [address] [place] [address] Dr. Rich Pham Hemoglobin (Bld) [Mass/Vol] 12.7 g/dL Normal 12.0-16.0 [facility] Comment on above: Performed By: #### F T3, TSH, BNP, T4 #### [facility] [address] [place] [address] Dr. Rich Pham IG # 0.03 10e3/ul Normal 0.00-0.03 [facility] Comment on above: Performed By: #### F T3, TSH, BNP, T4 #### [facility] [address] [place] [address] Dr. Rich Pham IG % 0.4 % Normal 0.0-0.5 [facility] Comment on above: Performed By: #### F T3, TSH, BNP, T4 #### [facility] [address] [place] [address] Dr. Rich Pham LYMPH # 2.5 103/ul Normal 1.2-3.8 [facility] Comment on above: Performed By: #### F T3, TSH, BNP, T4 #### [facility] [address] [place] [address] Dr. Rich Pham Lymphocytes/100 WBC (Bld) 32.8 % Normal 20.5-60.0 [facility] Comment on above: Performed By: #### F T3, TSH, BNP, T4 #### [facility] [address] [place] [address] Dr. Rich Pham MANUAL DIFF REQ NO Normal [facility] Comment on above: Performed By: #### F T3, TSH, BNP, T4 #### [facility] [address] [place] [address] Dr. Rich Pham MCH (RBC) [Entitic mass] 28.5 pg Normal 26.7-34.0 [facility] Comment on above: Performed By: #### F T3, TSH, BNP, T4 #### [facility] [address] [place] [address] Dr. Rich Pham MCHC (RBC) [Mass/Vol] 32.2 g/dL Normal 29.9-35.2 [facility] Comment on above: Performed By: #### F T3, TSH, BNP, T4 #### [facility] [address] [place] [address] Dr. Rich Pham MCV (RBC) [Entitic vol] 88.6 fL Normal 81.0-99.0 [facility] Comment on above: Performed By: #### F T3, TSH, BNP, T4 #### [facility] [address] [place] [address] Dr. Rich Pham MONO # 0.6 103/ul Normal 0.3-0.8 [facility] Comment on above: Performed By: #### F T3, TSH, BNP, T4 #### [facility] [address] [place] [address] [address] Rich Pham Monocytes/100 WBC (Bld) 7.6 % Normal 1.7-12.0 [facility] Comment on above: Performed By: #### F T3, TSH, BNP, T4 #### [facility] [address] [place] [address] Dr. Rich Pham NEUT # 4.2 103/ul Normal 1.4-6.5 [facility] Comment on above: Performed By: #### F T3, TSH, BNP, T4 #### [facility] [address] [place] [address] Dr. Rich Pham Neutrophils/100 WBC (Bld) 56.0 % Normal 43.0-75.0 [facility] Comment on above: Performed By: #### F T3, TSH, BNP, T4 #### [facility] [address] [place] [address] Dr. Rich Pham Platelet mean volume (Bld) [Entitic vol] 10.4 fL Normal 9.5-13.5 [facility] Comment on above: Performed By: #### F T3, TSH, BNP, T4 #### [facility] [address] [place] [address] Dr. Rich Pham PLT 253 103/ul Normal 150-450 [facility] Comment on above: Performed By: #### F T3, TSH, BNP, T4 #### [facility] [address] [place] [address] Dr. Rich Pham RBC 4.46 106/ul Normal 4.20-5.40 [facility] Comment on above: Performed By: #### F T3, TSH, BNP, T4 #### [facility] [facility] [address] [place] [address] Dr. Rich Pham WBC 7.5 103/ul Normal 4.0-11.0 [facility] Comment on above: Performed By: #### F T3, TSH, BNP, T4 #### [facility] [address] [place] [address] LUNG CANCER SCREENINGon [...] VASU EVANS Date: 2022-06-19 21:05 Normal [facility] FREE THYROXINE INDEX T7on FTI 2.24 Normal 1.30-4.50 [facility] Comment on above: Performed By: #### F T3, TSH, BNP, T4 #### [facility] [address] [address] [address] Rich Pham T3U 33.0 % Normal 30.0-39.0 [facility] Comment on above: Performed By: #### F T3, TSH, BNP, T4 #### [facility] [address] [place], [place] [address] Dr. Rich Pham T4 [Mass/Vol] 6.80 ug/dL Normal 4.80-13.90 [facility] Comment on above: Performed By: #### F T3, TSH, BNP, T4 #### [facility] [address] [place], [place] [address] Dr. Rich Pham GLYCOHEMOGLOBIN A1Con 2021 ADA RECOMMENDATION SEE BELOW Normal [facility] Comment on above: Result Comment: ADA RECOMMENDED LIMIT 4.0 - 6.0 ADA THERAPEUTIC TARGET < 7.0 ACTION SUGGESTED > 7.0 Performed By: #### F T3, TSH, BNP, T4 #### [facility] [address] [address] [address] Rich Pham Glucose [Mass/Vol] 117 mg/dL Normal [facility] Comment on above: Performed By: #### F T3, TSH, BNP, T4 #### [facility] [address] [address] [address] Rich Pham HbA1c (Bld) [Mass fraction] 5.7 % Normal 4.5-6.2 [facility] Comment on above: Performed By: #### F T3, TSH, BNP, T4 #### [facility] [address] [address] [address] Rich Pham IRONon 06-19-2022 Iron [Mass/Vol] 50.0 ug/dL Normal 50.0-170.0 [facility] Comment on above: Performed By: #### I IAM HARO #### [facility] [address] [place] [address] Dr. Rich Pham LIPID PROFILEon 06-19-2022 CHOL-HDL RATIO NORM SEE BELOW Normal [facility] Comment on above: Result Comment: 3.3 - 4.4 LOW RISK 4.4 - 7.1 AVERAGE RISK 7.1 - 11.0 MODERATE RISK >11.0 HIGH RISK Performed By: #### F T3, TSH, BNP, T4 #### [facility] [address] [address] [address] Rich Pham Cholesterol [Mass/Vol] 142 mg/dL Normal <=200 [facility] Comment on above: Performed By: #### F T3, TSH, BNP, T4 #### [facility] [address] [address] [address] Rich Pham Cholesterol in HDL [Mass/Vol] 52 mg/dL Normal 40-60 [facility] Comment on above: Performed By: #### F T3, TSH, BNP, T4 #### [facility] [address] [address] [address] Rich Pham Cholesterol in LDL [Mass/Vol] 78.8 mg/dL Normal [facility] Comment on above: Performed By: #### F T3, TSH, BNP, T4 #### [facility] [address] [address] [address] Rich Pham Cholesterol.total/Ch olesterol in HDL [Mass ratio] 2.7 {ratio} Normal [facility] Comment on above: Performed By: #### F T3, TSH, BNP, T4 #### [facility] [address] [address] [address] Rich Pham HDL NORMAL > or = 60 mg/dl - LO W CARDIOVASCULAR RISK <40 mg/dl - HIGH CARDIOVASCULAR RISK Normal [facility] Comment on above: Performed By: #### F T3, TSH, BNP, T4 #### [facility] [address] [address] [address] Rich Pham LDL CALC NORMAL SEE BELOW Normal [facility] Comment on above: Result Comment: <100 mg/dl OPTIMAL 100 - 129 mg/dl NEAR OR ABOVE OPTIMAL 130 - 159 mg/dl BORDERLINE HIGH 160 - 189 mg/dl HIGH >190 mg/dl VERY HIGH Performed By: #### F T3, TSH, BNP, T4 #### [facility] [address] [address] [address] Rich Pham Triglyceride [Mass/Vol] 56 mg/dL Normal <=150 [facility] Comment on above: Performed By: #### F T3, TSH, BNP, T4 #### [facility] [address] [address] [address] Rich Pham VLDL CALC 11.2 mg/dL Normal [facility] Comment on above: Performed By: #### F T3, TSH, BNP, T4 #### [facility] [address] [address] [address] Rich Pham PROF 14(COMP METB)on 022 Albumin [Mass/Vol] 3.5 g/dL Normal 3.4-5.0 [facility] Comment on above: Performed By: #### F T3, TSH, BNP, T4 #### [facility] [address] [place] [address] Dr. Rich Pham Albumin/Globulin [Mass ratio] 0.9 {ratio} Normal [facility] Comment on above: Performed By: #### F T3, TSH, BNP, T4 #### [facility] [address] [place] [address] Dr. Rich Pham ALP [Catalytic activity/Vol] 95 U/L Normal 46-116 [facility] Comment on above: Performed By: #### F T3, TSH, BNP, T4 #### [facility] [address] [place] [address] Dr. Rich Pham ALT [Catalytic activity/Vol] 22 U/L Normal 14-59 [facility] Comment on above: Performed By: #### F T3, TSH, BNP, T4 #### [facility] [address] [place] [address] Dr. Rich Pham Anion gap [Moles/Vol] 11.3 mmol/L Normal [facility] Comment on above: Performed By: #### F T3, TSH, BNP, T4 #### [facility] [address] [place] [address] Dr. Rich Pham AST [Catalytic activity/Vol] 21 U/L Normal 15-37 [facility] Comment on above: Performed By: #### F T3, TSH, BNP, T4 #### [facility] [address] [place] [address] Dr. Rich Pham Bilirubin [Mass/Vol] 0.4 mg/dL Normal 0.2-1.0 [facility] Comment on above: Performed By: #### F T3, TSH, BNP, T4 #### [facility] [address] [place] [address] Dr. Rich Pham Calcium [Mass/Vol] 10.4 mg/dL Critically high 8.5-10.1 T [facility] Comment on above: Performed By: #### F T3, TSH, BNP, T4 #### [facility] [address] [place] [address] Dr. Rich Pham Chloride [Moles/Vol] 105 mmol/L Normal 98-107 [facility] Comment on above: Performed By: #### F T3, TSH, BNP, T4 #### [facility] [address] [address] [address] Rich Pham CO2 [Moles/Vol] 27.8 mmol/L Normal 21.0-32.[address] [facility] Comment on above: Performed By: #### F T3, TSH, BNP, T4 #### [facility] [address] [place] [address] Dr. Rich Pham Creatinine [Mass/Vol] 0.94 mg/dL Normal 0.55-1.02 [facility] Comment on above: Performed By: #### F T3, TSH, BNP, T4 #### [facility] [address] [place] [address] Dr. Rich Pham EGFR-AF NORTHER[place] IRISH >60 Normal >=[address] [facility] Comment on above: Performed By: #### F T3, TSH, BNP, T4 #### [facility] [address] [place] [address] Dr. Rich Pham EGFR-NON AF [place]THER[place] IRISH 58 mL/min/1.73m2 Critically low >=60 [facility] Comment on above: Performed By: #### F T3, TSH, BNP, T4 #### [facility] [address] [place] [address] Dr. Rich Pham Globulin (S) [Mass/Vol] 3.9 g/dL Normal [facility] Comment on above: Performed By: #### F T3, TSH, BNP, T4 #### [facility] [address] [address] [address] Rich Pham Glucose [Mass/Vol] 94 mg/dL Normal 74-106 [facility] Comment on above: Performed By: #### F T3, TSH, BNP, T4 #### [facility] [address] [place] [address] Dr. Rich Pham Potassium [Moles/Vol] 4.1 mmol/L Normal 3.5-5.1 [facility] Comment on above: Performed By: #### F T3, TSH, BNP, T4 #### [facility] [address] [place] [address] Dr. Rich Pham Protein [Mass/Vol] 7.4 g/dL Normal 6.4-8.2 [facility] Comment on above: Performed By: #### F T3, TSH, BNP, T4 #### [facility] [address] [place] [address] Dr. Rich Pham Sodium [Moles/Vol] 140 mmol/L Normal 136-145 [facility] Comment on above: Performed By: #### F T3, TSH, BNP, T4 #### [facility] [address] [place] [address] Dr. Rich Pham Urea nitrogen [Mass/Vol] 15.0 mg/dL Normal 7.0-18.0 [facility] Comment on above: Performed By: #### F T3, TSH, BNP, T4 #### [facility] [address] [place] [address] Dr. Rich Pham Urea nitrogen/Creatinine [Mass ratio] 16.0 mg/mg Normal [facility] Comment on above: Performed By: #### F T3, TSH, BNP, T4 #### [facility] [address] [place] [address] Dr. Rich Pham TSHon 06-19-2022 TSH 6.083 uIU/mL Critically high 0.358-3.740 [facility] Comment on above: Performed By: #### F T3, TSH, BNP, T4 #### [facility] [address] [place] [address] Dr. Rich Pham VITAMIN D 25 OHon 06-19-2022 VIT D 25-OH 41.3 ng/mL Normal [facility] Comment on above: Performed By: #### F T3, TSH, BNP, T4 #### [facility] [address] [place] [address] Dr. Rich Pham VIT D RANGES SEE BELOW Normal [facility] Comment on above: Result Comment: <20 ng/mL Vit D deficient 20 - <30 ng/mL Vit D insufficient 30 - 100 ng/mL Vit D sufficient >100 ng/mL Potential Toxicity Performed By: #### F T3, TSH, BNP, T4 #### [facility] [address] [address] [address] Rich Pham PROF CHEM 8 (BAS METB)on Anion gap [Moles/Vol] 11.9 mmol/L Normal [facility] Comment on above: Performed By: #### F T3, TSH, BNP, T4 #### [facility] [address] [place] [address] Dr. Rich Pham Calcium [Mass/Vol] 9.9 mg/dL Normal 8.5-10.1 [facility] Comment on above: Performed By: #### F T3, TSH, BNP, T4 #### [facility] [address] [place] [address] Dr. Rich Pham Chloride [Moles/Vol] 101 mmol/L Normal 98-107 [facility] Comment on above: Performed By: #### F T3, TSH, BNP, T4 #### [facility] [address] [place] [address] Dr. Rich Pham CO2 [Moles/Vol] 30.0 mmol/L Normal 21.0-32.0 [facility] Comment on above: Performed By: #### F T3, TSH, BNP, T4 #### [facility] [address] [place] [address] Dr. Rich Pham Creatinine [Mass/Vol] 1.10 mg/dL Critically high 0.55-1.02 [facility] Comment on above: Performed By: #### F T3, TSH, BNP, T4 #### [facility] [address] [place] [address] Dr. Rich Pham EGFR-AF [place] 59 mL/min/1.73m2 Critically low >=60 [facility] Comment on above: Performed By: #### F T3, TSH, BNP, T4 #### [facility] [address] [place] [address] Dr. Rich Pham EGFR-NON AF [place] 49 mL/min/1.73m2 Critically low >=60 [facility] Comment on above: Performed By: #### F T3, TSH, BNP, T4 #### [facility] [address] [place] [address] Dr. Rich Pham Glucose [Mass/Vol] 115 mg/dL Critically high 74-106 [facility] Comment on above: Performed By: #### F T3, TSH, BNP, T4 #### [facility] [address] [place] [address] Dr. Rich Pham Potassium [Moles/Vol] 3.9 mmol/L Normal 3.5-5.1 [facility] Comment on above: Performed By: #### F T3, TSH, BNP, T4 #### [facility] [address] [place] [address] Dr. Rich Pham Sodium [Moles/Vol] 139 mmol/L Normal 136-145 [facility] Comment on above: Performed By: #### F T3, TSH, BNP, T4 #### [facility] [address] [place] [address] Dr. Rich Pham Urea nitrogen [Mass/Vol] 15.0 mg/dL Normal 7.0-18.0 [facility] Comment on above: Performed By: #### F T3, TSH, BNP, T4 #### [facility] [address] [place] [address] Dr. Rich Pham Urea nitrogen/Creatinine [Mass ratio] 13.6 mg/mg Normal [facility] Comment on above: Performed By: #### F T3, TSH, BNP, T4 #### [facility] [address] [place] [address] Dr. Rich Pham FLUORO FOR SURGICAL PROCEDUR [...] Juvenal Cagle MD 04/10/19 Final result Normal [facility] Surgical Specimenon 04-10-20 Surgical Specimen [facility] [address] [place], [place] [id number] FINAL SURGICAL PATHOLOGY REPORT Patient Name: DAREK MEJÍA Accession No: [id number] Age Sex: 1950 Location: [facility] Account No: [id number] Collected: 04/10/2019 Med Rec No: [id number] Received: 04/10/2019 Attend Phys: ESTEBAN LÓPEZ Completed: [...] in one cassette after decalcification. JAZZY/CHRISTY CPT: 72807 X1 18531 X1 MICHELLE PEREZ M.D. 04/15/2019 Electronically signed out by Page 1 of 1 [facility] Comment on above: Performed By: #### S UR #### [address] [place] [id number] Type and Screen Capture 3 sc rn cellon 04-10-2019 Type and Screen Capture 3 scrn cell PATIENT: MICAELA OSWALD LOC: [facility] BILL# : [id number] : 1950 SEX: F ORDERED BY: DAVIN MERCEDES ORDERED : 04/10/2019 06:22 COLLECTED: 04/10/2019 07:21 ORDER : [id number] RECEIVED : 04/10/2019 07:21 --------- TEST NAME RESULT UNITS RANGES ABN FL ST ABORH Capture A POS F Antibody 3 Cell Scrn Captu NEG F -------- Normal [facility] Comment on above: Performed By: #### T S3C #### [facility] [address] [place] [address] CARDIAC STRESS TESTon 2018 CARDIAC STRESS TEST [address] [address] CARDIAC STRESS TEST PATIENT NAME: DAREK MEJÍA : 1950 MED REC NO: [id number] ROOM: ACCOUNT NO: [id number] ADMIT DATE: 03/31/2019 PROVIDER: Roger Mcdermott DO [...] DO Minda WHELAN: 04/02/2019 #14:19:36 [id number] Doc#: [id number] CC: [facility] Coding Summary.on 01-30-2019 Coding Summary. CODING DATE: 019 FINAL [facility] STATUS: Home (Routine DC) PAYOR: Medicare ADMIT DX: REASON FOR VISIT DX: M54.2 Cervicalgia M25.512 Pain in left shoulder FINAL DX: PRINCIPAL: M50.30 Other cervical disc degeneration, unspecified cervical region SECONDARY: M50.20 Other cervical disc displacement, unspecified cervical region M54.12 Radiculopathy, cervical region M48.02 Spinal stenosis, cervical region Z79.899 Other manager terminal (current) drug therapy PROCEDURES DOCTOR NAME DATE NOTE: The code number assigned matches the documented diagnosis and / or procedure in the patient's chart. However, the narrative phrase printed from the coding software may appear abbreviated, or result in slightly different terminology. Coded By: Linh Devlin CphT Date Saved: 01/30/2019 10:45 am [facility] Coding Summary.on 01-29-2019 Coding Summary. CODING DATE: [facility] STATUS: Home (Routine DC) PAYOR: Medicare APC DESCRIPTION 5442 Level 2 Nerve Injections ADMIT DX: REASON FOR VISIT DX: M54.12 Radiculopathy, cervical region FINAL DX: PRINCIPAL: M54.12 Radiculopathy, cervical region SECONDARY: F17.210 Nicotine dependence, cigarettes, uncomplicated Z79.82 detention (current) use of aspirin Z95.1 Presence of aortocoronary bypass graft PYMT PROC APC STAT DESCRIPTION DOCTOR NAME DATE NOTE: The code number assigned matches the documented diagnosis and / or procedure in the patient's chart. However, the narrative phrase printed from the coding software may appear abbreviated, or result in slightly different terminology. Coded By: Maria Teresa Velasquez Date Saved: 01/29/2019 08:16 am [facility] Main OR Intraoperative Recor don 01-28-2019 Main OR Intraoperative Record IntraOp Document Type FTPM Summary Primary Physician: Cain Rowley MD Finalized Date/Time: 01/28/19 07:58:26 Pt. Name: DAREK MEJÍA /Sex: 1950 Female Med Rec #: [id number] Physician: Cain Rowley MD Financial #: [id number] Pt. Type: P Room/Bed: / Admit/Disch: 01/28/19 [...] Role Performed Anesthesiologist of Surgeon - Primary Take Away Attendant - Primary Record Time In 01/28/19 07:53:00 [...] Tamanna Sun RN, Aaron Donohue Role Performed Take Away Attendant - Primary Scrub - Other [employer] Designer Time In 01/28/19 07:53:00 01/28/19 07:53:00 01/28/19 [...] MAUREEN Primary Procedure Yes Primary Surgeon Amrik AWDE, Cain Perla Start 01/28/19 07:56:00 Stop 01/28/19 [...] and tissue Entry 1 Skin Integrity Intact, Buhler, Warm, and Skin Abnormality No Dry Outcomes [...] By: Nettie Guthrie RN 01/28/19 07:58 Normal [facility] Main OR Preoperative Recordo n 01-28-2019 Main OR Preoperative Record Holding Area Document Type FT Summary Primary Physician: Cain Rowley MD Finalized Date/Time: 01/28/19 07:17:16 Pt. Name: DAREK MEJÍA /Sex: 1950 Female Med Rec #: [id number] Physician: Cain Rowley MD Financial #: [id number] Pt. Type: P Room/Bed: / Admit/Disch: 01/28/19 [...] 07:14 Melina Harper RN 01/28/19 07:17 Normal [facility] Operative Reporton 9 Operative Report Patient: [...] 96 mmHg SpO2 94 % . Normal [facility] Comment on above: Result Comment: Elec [...] January 17, 2019 10:38 EDT Encounter info: [id number], Gerry Hammond, Pain Management, 01/17/2019 - 01/17/2019 [...] tid., # 180 tab(s), Refills(s) 0, Pharmacy: [facility] #72 Documented Medications Documented NIFEdipine 30 mg [...] list: All Problems Smoker / SNOMED CT 008604180 / Confirmed Added secondary to documentation in [...] of motion. Normal strength. Integumentary: Warm, Dry, Buhler. Injection site well-healed Neurologic: Alert, Oriented. Psychiatric: [...] Electronically Co-Signed By: Amrik WADE, Cain Perla [facility] Comment on above: Result Comment: Elec [...] tid., # 180 tab(s), Refills(s) 0, Pharmacy: [facility] #72 Documented Medications Documented NIFEdipine 30 mg [...] list: All Problems Smoker / SNOMED CT 851708095 / Confirmed Added secondary to documentation in [...] of motion. Normal strength. Integumentary: Warm, Dry, Buhler. Injection site well-healed Neurologic: Alert, Oriented. Psychiatric: [...] with any interval questions or concerns. Normal [facility] Comment on above: Result Comment: ERRO R - WRONG FOLDER Electronically Signed By: Marah Ferrell PA-C\.br\Date and Time Signed: 01/17/19 10:38 EDT\.br\Electronically Co-Signed By: Amrik WADE, Cain Perla Coding Summary.on 12-31-2018 Coding Summary. CODING DATE: 019 FINAL [facility] STATUS: Home (Routine DC) PAYOR: Medicare APC [...] Velasquez Date Saved: 12/31/2018 02:30 pm Normal [facility] Progress Note-Physicianon Progress Note-Physician Patient: DAREK [...] day(s), # 21 tab(s), Refills(s) 0, Pharmacy: [facility] #72 gabapentin 300 mg Cap: See Instructions, increase dose as directed to 600 mg po tid., # 180 tab(s), Refills(s) 0, Pharmacy: [facility] Documented Medications Documented NIFEdipine 30 mg [...] list: All Problems Smoker / SNOMED CT 446885451 / Confirmed Added secondary to documentation in Social History. Histories Past Medical History: No active or resolved past medical history items have been selected or recorded., SMOKES TOBACCO Family History: No family history items have been selected or recorded. Procedure history: Mastectomy (1760215391). Hysterectomy (418502113). Cholecystectomy (55991788). CABG x 5 - Coronary artery bypass grafts x 5 ([id number]). Social History Social & Psychosocial Habits Alcohol [...] and perfusion.. Gastrointestinal: Benign, nontender.. Integumentary: Warm, Buhler. Neurologic: PER PAIN CLINIC ASSESSMENT. Plan [place] [employer]esthesiologists (ASA) physical status classification: Class III. Anesthetic Preoperative Plan Anesthesia: Monitored anesthesia care. Anesthetic plan, risks, benefits, and alternatives discussed with the patient and/or family. Patient verbalized understanding. Informed consent was given. Communication: face to face with Pt educated on the importance of smoking cessation. [facility] Comment on above: Result Comment: Elec tronically Signed By: Vijay Andre DO, Stevie Napier\.fran\Date and Time Signed: 12/31/18 15:15 EDT Main OR Intraoperative Recor don 12-30-2018 Main OR Intraoperative Record IntraOp Document Type FTPM Summary Primary Physician: Cain Rowley MD Finalized Date/Time: 12/30/18 08:22:53 Pt. Name: DAREK MEJÍA.O.B./Sex: 1950 Female Med Rec #: [id number] Physician: Cain Rowley MD Financial #: [id number] Pt. Type: P Room/Bed: / Admit/Disch: 12/30/18 [...] Role Performed Anesthesiologist of Surgeon - Primary Take Away Attendant - Primary Record Time In 12/30/18 08:15:00 [...] Performed Scrub - Primary Scrub - Other Industrial Green Systems Designer Time In 12/30/18 08:15:00 12/30/18 08:15:00 12/30/18 [...] and tissue Entry 1 Skin Integrity Intact, Buhler, Warm, and Skin Abnormality No Dry Outcomes [...] transport Entry 1 Via Cart By Nettie Guthrei RN Safety Precautions Safety Strap, Side Outcomes [...] By: Nettie Guthrie RN 12/30/18 08:22 Normal [facility] Main OR Preoperative Recordo n 12-30-2018 Main OR Preoperative Record Holding Area Document Type FTPM Summary Primary Physician: Cain Rowley MD Finalized Date/Time: 12/30/18 07:39:27 Pt. Name: DAREK MEJÍA /Sex: 1950 Female Med Rec #: [id number] Physician: Cain Rowley MD Financial #: [id number] Pt. Type: P Room/Bed: / Admit/Disch: 12/30/18 07:22:06 - Institution: Case Times Holding FTPM Pre-Care Text: Verifies consent for planned procedure, identifies individual values and wishes concerning care, includes family members in perioperative teaching Secures patient's records' belongings, and valuables, maintains patient's dignity and privacy, and maintains patient confidentiality Entry 1 In Holding 12/30/18 07:36:00 Outcomes Met? Yes Last Modified By: Melina Harepr RN 12/30/18 07:36:51 Post-Care Text: The patient [...] By: Melina Harper RN 12/30/18 07:39 Normal [facility] Operative Reporton 9 Operative Report Patient: [...] 112 mmHg SpO2 98 % . Normal [facility] Comment on above: Result Comment: Elec tronically Signed By: Cain Rowley MD\.br\Date and Time Signed: 12/30/18 08:23 EDT Message - General Officeon 0 12-25-2018 Message - General Office From: James Eaton ([facility] Pain Director Maternal Child) To: Cain Rowley MD; Sent: 12/19/2018 14:37:15 EDT Subject: Rx Patient called and said that she had been prescribed Gabapentin per her last care plan. She said it makes her sleepy and weak. She asked if she would be able to take something different. From: Marah Ferrell PA-C To: [facility] Nursing Inbox; Sent: 12/20/2018 09:18:44 EDT Subject: RE: Rx DC GPN, we can try lyrica if insurance mitzi cover it. Or just proceed with injection only and see if that helps. Please let me know what she would like to try. From: Jeevan Outdoor Landscape ArchitectElysia Fitzgerald ([facility]) To: [facility]; Sent: 12/20/2018 10:01:06 EDT Subject: pt to call back. called patient, left a message requesting a return telephone. From: Jeevan LiuOutdoor Landscape ArchitectElysia Fitzgerald ([facility]) To: Marah Ferrell PA-C; Sent: 12/20/2018 13:34:17 EDT Subject: RE: pt to call back. Patient called back and stated that she will d/c the gabapentin and will just wait for injection before trying the lyrica Received a request for prior authorization for the Gabapentin from [facility] From: Elva Moreno RN ([facility]) To: [facility]; Sent: 12/23/2018 08:44:56 EDT Subject: Rx prior auth request Tried to call [facility] and they do not open until after 9 - will call to see if she picked this up (see notes below) and why we got this request. From: Elva Moreno RN ([facility]) To: Elva Moreno RN; Sent: 12/23/2018 10:51:16 EDT Subject: FW: Rx prior auth request Contacted [facility] and they confirm the patient filled this on the 17 of December - not sure why we got the request for Prior authoization, but since we will not be continuing this medication we will disregard the request. for CADE. 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 [...] is reviewed. From: Marah Ferrell PA-C To: [facility]; Sent: 12/25/2018 11:05:18 EDT Subject: RE: Intractable pain injection scheduled Sunday12/30/18 I can send a medrol dose pack in if she would like to use until the injection From: Elva Moreno RN ([facility]) To: [facility]; Sent: 12/25/2018 11:11:14 EDT Subject: FW: Intractable pain injection scheduled Sunday12/30/18 Due Date/Time: 12/25/2018 13:00:00 EDT Left voice mail for patient to call the office From: Elva Moreno RN ([facility]) To: Marah Ferrell PA-C; Sent: 12/25/2018 11:14:17 EDT Subject: Dose Pack On hold pending signature Order:methylPREDNISolon e (Medrol Dosepack 4 mg Tab) 1 packet(s) Oral As Directed as directed on package labeling Qty: 21 tab(s) Duration: 6 day(s) Refills: 0 Substitutions Allowed Route To Pharmacy - [facility] Patient returned call and states she will give it a try . Approved Order:methylPREDNISolon e (Medrol Dosepack 4 mg Tab) 1 packet(s) Oral As Directed as directed on package labeling Qty: 21 tab(s) Duration: 6 day(s) Refills: 0 Substitutions Allowed Route To Pharmacy - [facility] Signed by Marah Ferrell PA-C 12/25/18 11:27:00 From: Marah Ferrell PA-C To: [facility]; Sent: 12/25/2018 11:27:52 EDT Subject: RE: Dose Pack sent From: Jeevan LiuOutdoor Landscape ArchitectElysia Fitzgerald ([facility]) To: [facility]; Sent: 12/25/2018 12:57:16 EDT Subject: RE: Dose Pack attempted to call patient, no answer and no voicemail From: Triny Woods ([facility]) To: [facility]; Sent: 12/25/2018 13:21:44 EDT Subject: RE: Dose Pack patient returned call I informed her prescription sent to pharmacy [facility] Consultation Noteon 12-25-19 Consultation Note HOSPITAL [...] to 600 mg three times per day. [place] Automated Prescription Reporting System report was reviewed and is consistent with the previous medications prescribed. The patient will follow up two weeks after the injection to assess response and call the clinic with any questions or concerns. The patient agrees with plan of care. Cain Rowley M.D. lkr Dictated: 12/17/2018 #[id number] Typed: 12/19/2018 #[id number] cc: Cain Rowley M.D. Kayleigh Gay M.D. Stas Olvera MD [facility] Comment on above: Result Comment: Elec tronically Signed By: Amrik WADE, Cain Perla\.br\Date and Time Signed: 12/24/18 13:15 EDT Message - General Officeon 0 12-23-2018 Message - General Office From: Sarah Laws To: [facility] Maternal Child; Sent: 12/17/2018 13:40:24 EDT Subject: [place]-Medicare Aet[employer]-CES-12/17/18 From: Thais Nieto ([facility] Director Maternal Child) To: [facility] Clerical Inbox; Sent: 12/23/2018 13:33:03 EDT Subject: 2nd call Arleen Submitted prior auth online through [facility]. Medicare Aetna approved auth #[id number] good 12/23/18 to 03/23/19. Called patient to schedule C6/7 MAUREEN no anesthesia Dx M54.12, patients number has been changed or disconnected called Ag on patients HIPAA no answer unable to leave a message. From: Thais Nieto ([facility] Inbox) To: [facility]; Sent: 12/23/2018 14:32:36 EDT Subject: RE: 2nd call Arleen Patient called back, scheduled procedure for 12/30/18, scheduled follow up for 01/17/19 at 10:10am. [facility] Coding Summary.on 12-20-2018 Coding Summary. CODING DATE: [facility] STATUS: Home (Routine DC) PAYOR: Medicare ADMIT DX: REASON FOR VISIT DX: M54.2 Cervicalgia FINAL DX: PRINCIPAL: M54.12 Radiculopathy, cervical region SECONDARY: M50.20 Other cervical disc displacement, unspecified cervical region M50.30 Other cervical disc degeneration, unspecified cervical region Z79.82 detention (current) use of aspirin Z79.1 detention (current) use of non-steroidal anti-inflammatories (NSAID) PROCEDURES DOCTOR NAME DATE NOTE: The code number assigned matches the documented diagnosis and / or procedure in the patient's chart. However, the narrative phrase printed from the coding software may appear abbreviated, or result in slightly different terminology. Coded By: Linh Devlin CphT Date Saved: 12/20/2018 01:35 pm [facility] Coding Summary.on 12-03-2018 Coding Summary. CODING DATE: [facility] STATUS: Home (Routine DC) PAYOR: Medicare ADMIT [...] Devlin CphT Date Saved: 12/03/2018 01:31 pm [facility] Consultation Noteon 12-04-19 Consultation Note HOSPITAL REGULATIONS [...] bypass surgery in July 2015 at the [facility] and she does smoke. REVIEW OF [...] injection. Stas Olvera MD gls Dictated: 11/26/2018 #[id number] Typed: 12/03/2018 #[id number] cc: Angeles Rivers MD [facility] Comment on above: Result Comment: Elec tronically Signed By: Wade WADE, Stas Napier\.br\Date and Time Signed: 12/03/18 13:16 EDT History and Physicalon 12-11 HIM IP Note OR Film Editor Supervisor [facility] OPERATIVE REPORTon 8 OPERATIVE REPORT [address] [address] OPERATIVE REPORTPATIENT NAME: DAREK MEJÍA : 8MED REC NO: [id number] ROOM:ACCOUNT NO: [id number] ADMIT DATE: 12/11/2017PROVIDER: Dustin McmahonDATE OF PROCEDURE: [...] infollowup on 12/12/2017.DUSTIN MCMAHOND: 12/11/2017 11:14:16 CD/[id number]_TJob#: [id number] Doc#: [id number]: [facility] Op Noteon 12-11-2017 HIM IP Note OR Film Editor Supervisor [facility] History and Physicalon 10-23 HIM IP Note OR Film Editor Supervisor [facility] OPERATIVE REPORTon 8 OPERATIVE REPORT [address] [address] OPERATIVE REPORTPATIENT NAME: DAREK MEJÍA : 1950MED REC NO: [id number] ROOM:ACCOUNT NO: [id number] ADMIT DATE: 10/23/2017PROVIDER: Dustin McmahonDATE OF PROCEDURE: [...] days postoperatively.DUSTIN Ren DABBSD: 10/23/2017 11:29:16 CD/[id number]_IJob#: [id number] Doc#: [id number]: [facility] Op Noteon 10-23-2017 HIM IP Note OR Film Editor Supervisor [facility] Progress Noteon 10-23-2017 HIM IP Note OR Film Editor Supervisor [facility] HIM IP Note OR Film Editor Supervisor [facility] No Panel Information [facility] Encounters Encounter Date Encounter Type Care Provider Facility Start: 08-01-2023 End: 08-01-2023 ambulatory EHAB [facility] Start: 07-21-2023 Evaluation and management of inpatient MAHAMED [facility] Start: 07-20-2023 Evaluation and management of inpatient PARTHA [facility] Start: 07-20-2023 [facility] Start: 07-20-2023 Evaluation and management of inpatient WHITNEY [facility] Start: 07-20-2023 Evaluation and management of inpatient [facility] Start: 07-19-2023 End: 07-22-2023 Evaluation and management of inpatient [facility] Start: 07-19-2023 End: 07-19-[address] [facility] Start: 04-23-2023 End: 04-23-[address] [facility] Start: 01-31-2023 End: 01-31-2023 ambulatory [facility] Start: 12-21-2022 End: 12-21-2022 ambulatory [facility] Start: 11-30-2022 End: 12-01-[address] KAYLEIGH GAY . 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) Start: 08-15-2022 End: 08-15-2022 ambulatory ALEKSANDAR WILSON V Facility:[facility] Start: 08-15-2022 End: 08-15-2022 Patient encounter [...] End: 04-10-2019 Patient encounter procedure ESTEBAN LÓPEZ [facility] Start: 03-31-2019 End: 04-03-2019 Patient encounter procedure OLGA PARISI [facility] Start: 12-11-2017 End: 12-11-2017 Ambulatory [facility] Start: 10-23-2017 End: 10-23-2017 Ambulatory [facility] Start: 09-28-2017 End: 09-29-2017 Ambulatory DEFAULT PHYSICIAN Facility:[facility] Procedures Date Procedure Procedure Detail Performing Clinician [...] RICH BBS Start: 12-11-2017 EKG 12-LEAD DUSTIN [facility] Start: 12-11-2017 INITIATE OXYGEN THER APY [...] Author Start: 01-08-2025 LIPID SCREEN LIPID SCREEN [facility] Start: 01-27-2023 DIABETES SCREEN DIABETES SCREEN [facility] Start: 09-03-2022 ADVANCE DIRECTIVE DISCUSSION ADVANCE DIRECTIVE DISCUSSION [facility] Start: 09-03-2022 DEPRESSION ASSESSMENT DEPRESSION ASS ESSMENT [facility] Start: 05-04-2022 Influenza vaccination INFLUENZA (#1) [facility] Start: 09-13-2021 COVID-19 VACCINE (4 - Booster for Moderna series) COVID-19 VACCINE (4 - Booster for Moderna series) [facility] Start: 09-03-2021 ADVANCE DIRECTIVE DISCUSSION ADVANCE DIRECTIVE DISCUSSION [facility] Start: 09-03-2021 DEPRESSION ASSESSMENT DEPRESSION ASS ESSMENT [facility] Start: 01-08-2021 Hepatitis B surface antibody level LDL CHOLESTEROL [facility] Start: 07-26-2016 PNEUMOCOCCAL: 65+ (2 - PCV) PNEUMOCOCCAL: 65+ (2 - PCV) [facility] Start: 2014 BONE DENSITY BONE DENSITY [facility] Start: 1999 SHINGRIX VACCINE (1 of 2) SHINGRIX V ACCINE (1 of 2) [facility] Start: 1994 COLOGUARD (FIT-DNA) COLOGUARD (FIT-D NA) [facility] Start: 1994 Colonoscopy COLONOSCOPY [facility] Start: 1994 COLORECTAL CANCER SCREENING COLORECTAL CANCER SCREENING [facility] Start: [address] COLONOGRAPHY [facility] Start: 1994 FECAL OCCULT BLOOD FECAL OCCULT BLOO D [facility] Start: 1994 [facility] Start: 1989 Mammography MAMMOGRAM [facility] Start: 1979 Zoledronic acid therapy ALPHA- 1 ANTITRYPSIN DEFICIENCY SCREENING [facility] Start: 1968 Urine microalbumin profile DTAP,TDAP ,TD (1 - Tdap) [facility] Start: 1967 ANNUAL PCP TEAM CUSTOMER CARE TEAM COACH LEATHA DISEASE VISIT ANNUAL PCP TEAM CHRONIC DISEASE VISIT [facility] Start: 1967 BP CONTROLLED (<130/80) BP CONTROLLE D (<130/80) [facility] Start: 1967 HEPATITIS C SCREENING HEPATITIS C SC REENING [facility] Start: 1967 SPIROMETRY SPIROMETRY [facility] Immunizations Immunization Date Immunization Notes Care Provider Fa cility 06-07-2022 unknown vaccine or immune globulin [facility] Work Phone: [facility] 05-25-2021 influenza, injectable,quadrivalent , preservative free, pediatric [facility] Work Phone: [facility] 09-18-2017 pneumococcal conjuga te vaccine, 13 valent [facility] Work Phone: [facility] 06-03-2017 influenza, seasonal, injectable [facility] Work Phone: [facility] 07-07-2016 influenza virus vaccine, unspecified formulation [facility] Work Phone: [facility] 06-14-2016 influenza, injectabl e, quadrivalent, preservative free [facility] Work Phone: [facility] 07-26-2015 influenza, high dose seasonal, preservative-free Aleksandar Castillo MD Work Phone: [facility] 07-26-2015 pneumococcal polysaccharide vaccine, 23 valent Aleksandar Castillo MD Work Phone: [facility] Payers Date Payer Category Payer Medicare AETNA MEDICARE A ETNA MEDICARE PPO [id number] 2021-Present [phone] [address] [place] [address] PPO [id number] 1959 Medicare [id number] 1959 Medicare [id number] 1950 Unknown [id number] 1950 Unknown [id number] 1950 Unknown [id number] 1950 Unknown [id number] 1949 Unknown [id number] 1949 Unknown [id number] 1949 Unknown [id number] 1949 Unknown [id number] 1949 Unknown [id number] 1950 Unknown [id number] Unknown Social History Date Type Detail Facility Start: 09-03-1962 End: 10-30-2022 Tobacco smoking status MDIS Smokes tobacco daily [facility] Start: 09-03-1962 History of tobacco use Cigarette Smo ker [facility] Start: 03-22-2021 End: 10-30-2022 Cigarettes smoked current (pack per day) - Reported 0.5 [facility] Start: 03-22-2021 End: 10-30-2022 Tobacco use and exposure Smokeless tobacco non-user [facility] Start: 08-15-2022 End: 10-30-2022 Alcohol intake Current drinker of alcohol (finding) [facility] Start: 03-22-2021 Alcohol Comment rare/social [facility] Start: 1950 Sex Assigned At Not on file C [facility] Medical Equipment Procedure Code Equipment Code Equipment Origin al Text Equipment Identifier Dates Graft Gelweave 3 0mm Straight Gelatin Polyester Woven 30cm Cardiovascular - [id number] Start: 01-10-2020 [place] Cv 4x.5in Thk1.65mm Ptfe - [id number] Start: 07-20-2015 [place] Thk1.65mm P tfe [id number] Cardiovascular Patch Sterile - [id number] Start: 01-10-2020 Lens Iol 0d +21. 5 [place] Uv Abs - [id number] Start: 04-13-2021 Comment on above: Description: -0.47 Patch Thk.5mm Esteban vine Pericardial [id number] Cardiovascular Resilience Durable - [id number] Start: 01-10-2020 Valve Aort 23mm Crp-Ed Thfx - [id number] Start: 01-10-2020 Clinical Notes 01-09-2020 to 08-01-2023 Thais Dodd, XIOMARA - 10/30/2022 3:19 PM ESTTelephone Encounter - Rayna Martin - 10/18/2022 1:30 PM ESTTelephone Encounter - Haven Moreno LPN - 10/18/2022 1:15 PM EST Note Date & Type Note Facility 08-01-2023 Note [facility] Cardiology Clinic Note Chief Complaint: Patient here for follow up [facility]. Underwent heart cath and AMITA on 07/20 [...] Severe obstructive karley (more content not included)... [facility] 07-22-2023 Note 07/22/23 1106 Home Oxygen Therapy Evaluation Pulse Oximetry on room air at Rest 87 Pulse Ox on O2 with nasal cannula while at rest 95 (placed patient on 2lpm via nasal cannula) Patient Qualification for home oxygen Qualifies $ Pulse Oximetry Single [facility] 07-22-2023 Note Hospital Medicine Discharge Summary Final Discharge Diagnosis: Newly diagnosed Atrial fibrillation, CHADVASc of 5 s/p AMITA Cardioversion Post cardioversion bradycardia Severe Bioprosthetic Aortic valve stenosis Admission Diagnosis: Atrial fibrillation ([facility]) [I48.91] Hospital course: Darek Mejía [...] any surgical versus TAVR procedure. Dear Dr. Deirda MD, Darek is advised to follow up [...] 100-62.5-25 mcg blister with device Generic drug: bvbxakfbldr-vrnwgiexj-teifgjhj STOP taking these medications carvedilol 12.5 mg tablet Commonly known as: Coreg Where to Get Your Medications These medications were sent to [facility]/pharmacy #[id number] AT CORNER OF [address] [address] apixaban 5 mg tablet Darek is allergic [...] rales or rh (more content not included)... [facility] 07-22-2023 Note Attestation signed by Kvng [...] 124 QT Interval 462 QTC CALCULATION(BAZETT) 412 R-[place] -64 T Wave [place] -82 Impression Wide QRS rhythm Left anterior fascicular block Left ventricular hypertrophy with QRS widening and repolarization abnormality ( [place] product ) Cannot rule out Septal infarct [...] with QRS widening and repolarization abnormality ( [place] product ) Cannot rule out Septal infarct [...] CABG x5 with revesion in 2019 at [facility] ([facility], rSVG- Diagonal, SVG-OM, SVG-PDA-PLV) Aortic stenosis [...] Juancarlos Egan MD PGY-2 Internal Medicine Resident [facility] 07-21-2023 Note Physical Therapy Physical Therapy Evaluation [...] artery disease involving coronary bypass graft of sioux heart with angina pectoris (CMS/HCC) Dyslipidemia Encounter for support and coordination of transition of care Hx of CABG Hypervolemia Ischemic heart disease, chronic Macular hole of right eye Mild left ventricular systolic dysfunction Moderate protein-calorie malnutrition (CMS/HCC) Nonrheumatic aortic valve insufficiency Pleural effusion Benign hypertensive cardiomyopathy with heart failure (CMS/HCC) Smoking addiction Bradycardia CHF (congestive heart failure) ([facility]) GERD (gastroesophageal reflux disease) Other emphysema ([facility]) Atrial fibrillation ([facility]) Acute heart failure with preserved ejection fraction ([facility]) Nonrheumatic aortic valve stenosis Past Medical History: [...] Level of Function Prior Function Level of Barton: Independent with ADLs and functional transfers, Independent [...] to walk i (more content not included)... [facility] 07-21-2023 Note Hospital Medicine Daily Progress Note - 07/21/2023 11:41 AM; Room: 3137/3137-01 Admission: 07/19/2023 8:09 PM; Length of stay: 2 days THE HOSPITALIST TEAM PREFERS TO USE [employer] CHAT FOR COMMUNICATION 7AM-7PM. IF I DO NOT RESPOND WITHIN 15 MINUTES, PLEASE PAGE ME/CALL THROUGH THE ACADEMIC ADVISING DIRECTOR. FROM 7PM-7AM, PLEASE PAGE [phone](COVR) Code Status: Full Code Barriers to Discharge: [...] Active Inpatient Problems Principal Problem: Atrial fibrillation ([facility]) Active Problems: Acute heart failure with preserved ejection fraction ([facility]) Nonrheumatic aortic valve stenosis Assessment and Plan Severe Bioprosthetic Aortic valve stenosis Newly diagnosed Atrial fibrillation, CHADVASc = 5 CAD s/p CABG x5 with revesion in 2019 at [facility] ([facility], rSVG- Diagonal, SVG-OM, SVG-PDA-PLV) Aortic stenosis [...] 0-28 Units/kg/hr, Last Rate: 17 Units/kg/hr (07/21/23 7098) Pertinent Investigations Hematology: Results from last 7 [...] FREET4 1.14 07/21/2023 No results found for: [id number], IRON, TIBC, C3, C4, MIRIAM, CANCA, ASO, PSA, CEA, CA125, CA199, AFP, CA153 Imaging ECG 12 lead Wide QRS rhythm Left anterior fascicular block Left ventricular hypertrophy with QRS widening and repolarization abnormality ( [place] product ) Cannot rule out Septal infarct , age undetermined Abnormal ECG When compared with ECG of 20-JUL-2023 12:58, Wide QRS rhythm has replaced Sinus rhythm Discharge Planning Discharge Planning Has discharge transport been arranged?: Yes OT Discharge Recommendations: Home Signed Partha Fuller (more content not included)... [facility] 07-21-2023 Note Attestation signed by Kvng [...] 124 QT Interval 462 QTC CALCULATION(BAZETT) 412 R-[place] -64 T Wave [place] -82 Impression Wide QRS rhythm Left anterior fascicular block Left ventricular hypertrophy with QRS widening and repolarization abnormality ( Plevna product ) Cannot rule out Septal infarct [...] with QRS widening and repolarization abnormality ( [place] product ) Cannot rule out Septal infarct [...] CABG x5 with revesion in 2020 at [facility] ([facility], rSVG- Diagonal, SVG-OM, SVG-PDA-PLV) Aortic stenosis [...] bradycardia with amiodar (more content not included)... [facility] 07-21-2023 Note Called re pt with br adycardia and frequent pvcs Recent labs reviewed will check free T4/T3 since tsh 0.06 consider readjusting doses check troponins hold coreg ekg staff to notify cardiology serum calcium high normal check vit d and repeat cmp [facility] 07-20-2023 Note Procedure Report PROCEDURE: synchronized cardioversion INDICATION: atrial fibrillation, persistent ACADEMIC ADVISING DIRECTOR: Gallo Knowles M.D. ANESTHESIA: conscious sedation TECHNIQUE: [...] sinus rhythm. There were no apparent complications. [facility] 07-20-2023 Note Hospital Medicine Daily Progress Note - 07/20/2023 12:37 PM; Room: [address] [place] [address] Admission: 07/19/2023 8:09 PM; Length of stay: 1 days THE HOSPITALIST TEAM PREFERS TO USE [employer] CHAT FOR COMMUNICATION 7AM-7PM. IF I DO NOT RESPOND WITHIN 15 MINUTES, PLEASE PAGE ME/CALL THROUGH THE ACADEMIC ADVISING DIRECTOR. FROM 7PM-7AM, PLEASE PAGE [phone](COVR) Code Status: Full Code Barriers to Discharge: [...] Active Inpatient Problems Principal Problem: Atrial fibrillation ([facility]) Active Problems: Acute heart failure with preserved ejection fraction (CMS/HCC) Nonrheumatic aortic valve stenosis Assessment and Plan Severe Bioprosthetic Aortic valve stenosis Newly diagnosed Atrial fibrillation, CHADVASc = 5 CAD s/p CABG x5 with [facility] (CH-LAD, rSVG- Diagonal, SVG-OM, SVG-PDA-PLV) Aortic stenosis [...] FREET4 1.31 07/19/2023 No results found for: [id number], IRON, TIBC, C3, C4, MIRIAM, CANCA, ASO, [...] in the epigastric (more content not included)... [facility] 07-20-2023 Note Clinical Nutrition A ssessment [...] based on: actual body weight Calorie needs: 4063-1624 kcals/day based on Equation: 25-30 kcal/kg Protein [...] with questions and contact the dietitian via Vital Access chat 8A-4P Sunday-Sunday. Or call the dietitian's office at extension [phone]. For weekends/holidays, the dietitian's can be reached by paging [phone] from 9A-3P. 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 [facility] 07-20-2023 Note Hospital Medicine History and Physical 07/19/2023 10:58 PM THE HOSPITALIST TEAM PREFERS TO USE Adisn FOR COMMUNICATION 7AM-7PM. IF I DO NOT RESPOND WITHIN 15 MINUTES, PLEASE PAGE ME/CALL THROUGH THE ACADEMIC ADVISING DIRECTOR. FROM 7PM-7AM, PLEASE PAGE [phone](COVR) Chief Complaint No chief complaint on file. History of Present Illness Darek Mejía is an 73 y.o. female admitted from home per recommendation by her hospital plan administrator who saw her in the office and [...] Problem List Diagnosis Date Noted Atrial fibrillation ([facility]) 07/19/2023 GERD (gastroesophageal reflux disease) 10/30/2022 Other emphysema ([facility]) 10/30/2022 Combined forms of age-related cataract of both eyes 04/13/2021 Pleural effusion 01/19/2020 Encounter for support and coordination of transition of care 01/15/2020 Moderate protein-calorie malnutrition ([facility]) 01/11/2020 Hx of CABG 01/10/2020 Nonrheumatic aortic valve insufficiency 01/09/2020 Dyslipidemia 03/25/2019 Macular hole of right eye 10/23/2017 Ischemic heart disease, chronic 08/24/2015 Chronic systolic heart failure ([facility]) 07/24/2015 CHF (congestive heart failure) ([facility]) 07/24/2015 Hypervolemia 07/23/2015 Atelectasis 07/21/2015 Coronary artery disease involving coronary bypass graft of sioux heart with angina pectoris ([facility]/HCC) 07/19/2015 Mild left ventricular systolic dysfunction 06/22/2015 Benign hypertensive cardiomyopathy with heart failure ([facility]) 06/22/2015 Smoking addiction 06/22/2015 Bradycardia [...] ordered as approp (more content not included)... [facility] 07-19-2023 Note [facility] Clinic Note Chief Complaint: Patient [...] motion with ejection (more content not included)... [facility] 04-23-2023 Note [facility] Cardiology Clinic Note Chief Complaint: Patient [...] of ventricular bigeminy. (more content not included)... [facility] 01-31-2023 Note Continue GDMT- ASA, lipitor, coreg continue risk factor modifications- heart healthy diet, regular exercise as tolerated and continue all medications. [facility] 01-31-2023 Note [place] II- currently e uvolemic without excaerbation Continue GDMT- ASA, lipitor, coreg, lisinopril and aldatone Diuretic therapy- lasix every other day Monitor daily weights, I&O, fluid restriction 1.5-2L/day, renal function and electrolytes- [facility] 01-31-2023 Note Stable- continue all meds [facility] 01-31-2023 Note Review of B/P log an d her HTN is much better controlled with addition of aldactone. K+ level remains normal and renal function is stable for her. Denied lightheadedness/dizziness Continue aldactone, lisinopril, coreg and lasix QOD [facility] 01-31-2023 Note Patient here for 2 [...] All other systems reviewed and are negative. [facility] 01-31-2023 Note [facility] CARDIOLOGY PROGR ESS [...] all meds Chronic systolic heart failure (CMS/HCC) [facility] II- currently euvolemic without excaerbation Continue GDMT- ASA, lipitor, coreg, lisinopril and aldatone Diuretic therapy- lasix every other day Monitor daily weights, I&O, fluid restriction 1.5-2L/day, renal function and electrolytes- Coronary artery disease involving coronary bypass graft of sioux heart with angina pectoris (CMS/HCC) Continue GDMT- [...] weeks- message sent to Quyen Vernon MA. [facility] 01-11-2023 Note Benign hypertensive cardiomyopathy with [...] Release to Patient Answer: Immediately Hawa Rush ALUMNI RELATIONS OFFICER Division of Cardiology, [facility]- [phone] Pager- [phone] Email- [email or web address] 12-21-2022 Note [facility] II- currently e uvolemic without exacerbation Continue GDMT- ASA, lipitor, coreg, lisinopril Diuretic therapy- lasix qod Monitor daily weights, I&O, fluid restriction 1.5-2L/day, renal function and electrolytes- [facility] 12-21-2022 Note Coronary artery dise ase is stable Continue GDMT continue risk factor modifications- heart healthy diet, regular exercise as tolerated and continue all medications. [facility] 12-21-2022 Note stable: [facility] 12-21-2022 Note Currently stable wit hout any concerning symptoms [facility] 12-21-2022 Note Reviewed echocardiog ashwini with pt from 08/2022 No concerning symptoms currently Will repeat echo at 1 year- or Aug 2023 [facility] 12-21-2022 Note Hypertension is elev ated in office each time she is here most likely r/t white coat syndrome. States b/p typically at home is 130's/70 with occasional 140/80 Continue all meds [facility] 12-21-2022 Note Continue lipitor 80 mg [facility] 12-21-2022 Note Patient here for 4 [...] All other systems reviewed and are negative. [facility] 12-21-2022 Note [facility] CARDIOLOGY PROGR ESS [...] at 1 yea (more content not included)... [facility] 10-30-2022 Note HNO ID: [id number] Author: XIOMARA Farmer Service: ? Author Type: Office Nurse Type: Progress Notes Filed: 10/30/2022 3:28 PM Note Text: CONFIRM AIM PLANO LEFT EYE. XIOMARA Farmer [facility] 10-30-2022 History of Present illness Narrative CONFIRM AIM PLANO LEFT EYE. XIOMARA Farmer documented in this encounter [facility] 10-18-2022 Miscellaneous Notes Called and spoke [...] 2022 1:18 PM documented in this encounter [facility] 08-15-2022 Note HNO ID: [id number] Author: Aleksandar Wilson V, MD Service: ? [...] and surgery - Comanage with Dr Mccollum; [facility] POD #1 Cataract Presurgical Documentation Cataract: Left [...] patient was offered a surgery/procedure at a [facility] facility. The surgeon/proceduralist and patient have [...] patient was offered a surgery/procedure at a [facility] facility. The surgeon/proceduralist and patient have [...] form. -F/U [address] Mccollum ([facility]) The documentation recorded by the scribe accurately reflects the service I personally performed and the decisions made by me. I have confirmed and edited as necessary the relevant ophthalmic history, ROS, and the exam findings as obtained by others. I have seen and examined Darek Mejía. I also have reviewed and agree with the ass (more content not included)... [facility] 08-15-2022 Note HNO ID: [id number] Author: Jean-Claude Miles, OD Service: ? Author Type: JAVA ENTERPRISE ARCHITECT Type: Progress Notes Filed: 08/15/2022 3:51 PM [...] Miles, OD August 15, 2022 3:07 PM [facility] 08-15-2022 History of Present illness Narrative [...] and surgery - Comanage with Dr Mccollum; [facility] POD #1 Cataract Presurgical Documentation Cataract: Left [...] patient was offered a surgery/procedure at a [facility] facility. The surgeon/proceduralist and patient have [...] patient was offered a surgery/procedure at a [facility] facility. The surgeon/proceduralist and patient have [...] form. -F/U [address] Mccollum ([facility]) The documentation recorded by the scribe [...] 2022 3:07 PM documented in this encounter [facility] 01-09-2020 History of Past i llness [...] Dental: N/A PFT's: N/A ( per CTS preassembler printed circuit board - Per Dr. Bernal okay to proceed [...] of this encounter (statuses as of 08/15/2022) [facility]05-08-2020 History of Past illness Narrative* Problem [...] Dental: N/A PFT's: N/A ( per CTS preassembler printed circuit board - Per Dr. Bernal okay to proceed [...] of this encounter (statuses as of 08/16/2022) [facility] History of Past illness Narrative* Problem [...] Dental: N/A PFT's: N/A ( per CTS preassembler printed circuit board - Per Dr. Dolores henry to proceed [...] of this encounter (statuses as of 10/18/2022) [facility] History of Past illness Narrative* Problem [...] Dental: N/A PFT's: N/A ( per CTS preassembler printed circuit board - Per Dr. Bernal okay to proceed [...] of this encounter (statuses as of 10/31/2022) [facility] Diagnosis PCO (posterior capsular opacification), right- Primary After-cataract, unspecified Pseudophakia, right eye Lens replaced by other means Combined forms of age-related cataract of left eye Other and combined forms of senile cataract Full thickness macular hole, right [facility] [place] [facility]* Diagnosis Combined forms of age-related cataract of left eye- Primary Other and combined forms of senile cataract [facility] [place] [facility] Diagnosis Combined forms of age-related cataract of left eye- Primary Other and combined forms of senile cataract Combined forms of age-related cataract of left eye Other and combined forms of senile cataract documented in this encounter [facility] Summary Purpose Family History No Family History Records FoundNo Family History Records FoundNo Family History Records FoundNo Family History Records FoundNo Family History Records FoundNo Family History Records FoundNo Family History Records Found Advance Directives No Advanced Directives Records FoundDocuments on File Type Date Recorded 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 Chancellor Expl 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 Advance Directive(s) 01/16/2020 9:56 PM [...] list: All Problems Smoker / SNOMED CT [id number] / Confirmed Added secondary to documentation in [...] section and content) DATE CREATED AUTHOR 02/21/2018 [facility] DATE CREATED AUTHOR AUTHOR'S ORGANIZ ATION 02/25/2018 [facility] DATE CREATED AUTHOR AUTHOR'S ORGANIZ ATION 04/19/2019 [facility] DATE CREATED AUTHOR AUTHOR'S ORGANIZ ATION 08/22/2019 [facility] DATE CREATED AUTHOR AUTHOR'S ORGANIZ ATION 11/02/2022 [facility] DATE CREATED AUTHOR AUTHOR'S ORGANIZ ATION 12/09/2022 [facility] DATE CREATED AUTHOR AUTHOR'S ORGANIZ ATION 09/10/2023 [facility] Source Comments (unrecognize d section and content) In the event this informatio n is protected by the Federal Confidentiality of Alcohol and Drug Abuse Patient Records regulations: The Federal rules restrict any use of the information to criminally investigate or prosecute any alcohol or drug abuse patient.[facility] event this information is protected by the Federal Confidentiality of Alcohol and Drug Abuse Patient Records regulations: The Federal rules restrict any use of the information to criminally investigate or prosecute any alcohol or drug abuse patient.[facility] the event this information is protected by the Federal Confidentiality of Alcohol and Drug Abuse Patient Records regulations: The Federal rules restrict any use of the information to criminally investigate or prosecute any alcohol or drug abuse patient.[facility] the event this information is protected by the Federal Confidentiality of Alcohol and Drug Abuse Patient Records regulations: The Federal rules restrict any use of the information to criminally investigate or prosecute any alcohol or drug abuse patient.[facility] Reason for Visit (unrecogniz ed section and content) Reason Comments Cataract Evaluation Left eye Posterior Capsule Opacification Evaluati on Right eye Specialty Diagnoses / Procedures Referred By Contac t Referred To Contact OPHTHALMOLOGY Diagnoses Combined forms of age-related cataract, bilateral Laser Yag Procedures POST-CATARACT LASER SURGERY YAG SOLAL Darian Chowdhury [address] [place] [address] [address] Referral ID Status Reason Start Date Expiration Date Visits Re quested Visits Authorized [id number] Closed 03/21/2022 09/27/2022 1 1 Reason Comments Appointment Reason Comments Pre-Op Exam Care Teams (unrecognized sec tion and content) Paving Foreman Relationship Specialty Start Date End Date Kayleigh Gay MD PCP - General Family Medicine 06/17/15 Kayleigh Gay MD Family Medicine 06/17/15 Paving Foreman Relationship Specialty Start Date End Date Kayleigh Gay MD PCP - General Family Medicine 06/17/15 Kayleigh Gay MD [facility] Medicine 06/17/15 Paving Foreman Relationship Specialty Start Date End Date Kayleigh Gay MD PCP - General Family Medicine 06/17/15 Kayleigh Gay MD [facility] 06/17/15 Paving Foreman Relationship Specialty Start Date End Date Kayleigh Gay MD PCP - General Family Medicine 06/17/15 Kayleigh Gay MD [facility] 06/17/15 FOR RECORDS PERTAINING TO [...] ON THE PRIMARY CLINICAL RECORDS. [facility]. provides no warranty or guarantee of the accuracy or completeness of information in this document.
[2023-10-10] MEDS: LACTATED RINGER'S SOLUTION 1,000 ML 50 ML IV (10:00)
--- NOTE | 2023-10-10 10:38 | ECG_ITS ---
[facility] Test Date: 2023-10-10 Pat Name: DAREK HINOJOSA Department: Room: - Gender: Female Psychiatric Technician Assistant: : 1950 Requested By: KAYLEIGH GAY Order Number: [id number] Reading MD: KAYLEIGH GAY Measurements Intervals [place] Rate: 50 P: 34 NV: 158 QRS: -41 QRSD: 121 T: -67 QT: 495 QTc: 455 Interpretive Statements SINUS BRADYCARDIA LEFT ATRIAL ENLARGEMENT [-0.15mV P WAVE IN V1/V2] MARKED LEFT AXIS DEVIATION [QRS AXIS < -30] POSSIBLE RIGHT VENTRICULAR CONDUCTION DELAY [RSR (QR) IN V1/V2] LEFT VENTRICULAR HYPERTROPHY AND ST-T CHANGE [VOLTAGE CRITERIA PLUS ST/T ABNORMALITY] -= Consider INf-Lateral ischemia POSSIBLE SEPTAL MYOCARDIAL INFARCTION [30 ms Q WAVE IN V1/V2], PROBABLY OLD WARNING: DATA QUALITY MAY AFFECT INTERPRETATION Compared to ECG 07/02/2023 15:05:14 Electronically Signed On 10-11-2023 5:35:21 EST by KAYLEIGH GAY
[2023-10-10 12:04] VITALS: BP 140/81; PULSE 50; RESP 17; TEMP 36.1; O2SAT 96
[2023-10-10 12:19] VITALS: BP 149/79; PULSE 50; RESP 20
[2023-10-10 12:34] VITALS: BP 195/64; PULSE 50; RESP 18; O2SAT 96
[2023-10-10 12:37] VITALS: BP 156/65
--- NOTE | 2023-10-10 12:37 | PC.NURSE ---
last blood pressure was due to moving and coughing.
[2023-10-11 12:56] LABS: H Pylori Tissue, Urease Negative
== END 2023-10-10 12:38 | disposition home or self-care (01) ==
PROVIDERS: PCP Family Medicine; Visit Provider Surgery
PROC: (CPT 43239; principal; 2023-10-10 10:30)
DX: K22.70 Barrett's esophagus without dysplasia (principal); Z80.0 Family history of malignant neoplasm of digestive organs; K59.00 Constipation, unspecified; K29.70 Gastritis, unspecified, without bleeding; K57.30 Diverticulosis of large intestine without perforation or abscess without bleeding; F17.210 Nicotine dependence, cigarettes, uncomplicated; I48.91 Unspecified atrial fibrillation; Z79.01 Long term (current) use of anticoagulants; K21.00 Gastro-esophageal reflux disease with esophagitis, without bleeding; E78.00 Pure hypercholesterolemia, unspecified; I10 Essential (primary) hypertension; M19.90 Unspecified osteoarthritis, unspecified site; Z90.49 Acquired absence of other specified parts of digestive tract; Z90.710 Acquired absence of both cervix and uterus; Z79.82 Long term (current) use of aspirin
CPT/HCPCS: 43239; 45378; 87077; 88305; 93005; 99999; J2704

== ENCOUNTER 2023-10-29 09:48 | Outpatient (OUT) | payer MEDICARE, SELFPAY ==
--- NOTE | 2023-10-29 10:00 | CA_ITS ---
Patient Name: DAREK HINOJOSA MR#: [id number] : 1950 Exam Date: 10/29/2023 Ordering Doctor: DR JAMES CARVALHO M.D. ECHOCARDIOGRAM REPORT PROCEDURE: CA ECHO DOPPLER COMPLETE INDICATIONS: H/o aortic valve replacement, hypertension, smoker, CABGx5 COMPARISON: None. DESCRIPTION: COMPLETE ECHOCARDIOGRAM Real-time transthoracic echocardiography with 2D, M-mode, spectral and color flow Doppler performed. QUALITY: Technical quality was good. LEFT VENTRICLE: Normal chamber size. Thickened septal wall. LV EF: Global left ventricular systolic function is moderately reduced; visually estimated ejection fraction is 35 to 40%. Calculated left ventricular ejection fraction is 43%. Diffuse hypokinesis. DIASTOLIC: Grade II diastolic dysfunction. ATRIAL SEPTUM: Visually appears intact. LEFT ATRIUM: Severe dilatation. RIGHT ATRIUM: Moderate dilatation. RIGHT VENTRICLE: Normal chamber size. Decreased right ventricular systolic function. TRICUSPID VALVE: Normal mobility and thickness. Mild to moderate regurgitation. Doppler studies reveal moderately (45-60) elevated right sided pressures. RVSP 59 mmHg MITRAL VALVE: Mildly thickened with normal mobility. Moderate mitral regurgitation. AORTIC VALVE: Bio-Prosthetic valve appears well seated in the aortic position with elevated Doppler flow. DVI 0.27 suggests moderate aortic stenosis. No aortic regurgitation. AORTIC ROOT: Normal diameter and appearance. PULMONIC VALVE: Normal thickness and mobility. No stenosis. Mild regurgitation. PERICARDIUM: No evidence of pericardial effusion. IVC: Collapses with inspirations. IVC is dilated (2.1 cm) CONCLUSION: 1. Global left ventricular systolic function is moderately reduced; visually estimated ejection fraction is 35 to 40% 2. The right ventricle is normal in size with reduced systolic function 3. Biatrial enlargement 4. Mild to moderate tricuspid regurgitation 5. Moderately elevated right-sided pressures; RVSP 59 mmHg 6. Moderate mitral regurgitation 7. A bioprosthetic aortic valve is seen with elevated Doppler flows suggesting moderate aortic stenosis 8. Mild pulmonic regurgitation Adult Echocardiography Procedure Report Left Ventricle LVEDD (3.7 - 5.6 cm): 5.18 cm LVESD (2.2 - 4.0 cm): 4.61 cm LVIVS thickness (0.6 - 1.2 cm): 1.30 cm LVPW thickness (0.5 - 1.0 cm): 1.01 cm e': 0.11 m/s E - e': 8.01 LVOT Max Gradient: 1.84 mm[Hg] LVOT Area (cm2): 0.68 m/s Peak Velocity (LVOT): 0.68 m/s Mean Velocity (LVOT): 0.44 m/s LVOT Diameter 1.94 cm Left Atrium LA Volume Index (2D A2C): 80.56 ml/m2 Left Atrium Systolic Dimension: 4.91 cm Mitral Valve MV E to A Ratio: 1.96 Mitral Valve A-Wave Peak Velocity: 0.45 m/s Mitral Valve E-Wave Peak Velocity: 0.88 m/s Right Ventricle Aorta AO Root Diam: 3.26 cm Ascending Ao Diam: 3.27 cm Aortic Valve AoV Area (Peak Nathaniel): 0.80 cm2, 0.80 cm2 AoV Area (VTI): 0.90 cm2, 0.90 cm2 Peak Velocity(Antegrade Flow): 2.50 m/s Peak Gradient(Antegrade Flow): 24.91 mm[Hg] Mean Velocity(Antegrade Flow): 1.77 m/s Mean Gradient(Antegrade Flow): 14.30 mm[Hg] Velocity Time Integral: 69.89 cm Tricuspid Valve Peak Velocity (Regurgitant Flow): 3.29 m/s, 3.58 m/s Pulmonic Valve Peak Gradient: 4.13 mm[Hg], 5.42 mm[Hg] Right Atrium Dictated by: James Carvalho M.D. on 10/29/2023 at 14:33 Approved by: James Carvalho M.D. on 10/29/2023 at 14:42
--- OUTSIDE RECORDS SUMMARY | 2023-10-29 10:00 | XMS_ITS | CCD ---
Author Name Unknown Address [address] [place] [address] Organization [facility] Care Team Providers Care Computer Numerical Control Operator Name Role Phone DUSTIN MCMAHON K Unavailable Unavailable SALOME, DUSTIN K Unavailable Unavailable HOY, KAYLEIGH M Unavailable Unavailable SALOME, DUSTIN K Unavailable Unavailable SALOME, DUSTIN K Unavailable Unavailable HOY, KAYLEIGH M Unavailable Unavailable PHYSICIAN, DEFAULT Unavailable Unavailable PHYSICIAN, DEFAULT Unavailable Unavailable OLGA PARISI I Referring Unavailable HOY, KAYLEIGH M Primary Care Unavailable ESTEBAN LÓPEZ HLia Admitting Unavailable RENE, ESTEBAN HLia Attending Unavailable VISHALY, KAYLEIGH M Primary Care Unavailable Kayleigh Gay MD Primary Care Provider Kayleigh Gay MD Unavailable KATIE V, ALEKSANDAR Referring Unavailable KATIE V, ALEKSANDAR Attending Unavailable HOY, KAYLEIGH M Primary Care Unavailable KATIE V, ALEKSANDAR Referring Unavailable HOY, KAYLEIGH M Primary Care Unavailable KATIE V, ALEKSANDAR Admitting Unavailable KATIE V, ALEKSANDAR Referring Unavailable KATIE V, ALEKSANDAR Attending Unavailable DEIDRA, KAYLEIGH M Primary Care Unavailable KATIE V, ALEKSANDAR Referring Unavailable HOY, KAYLEIGH M Primary Care Unavailable KATIE V, ALEKSANDAR Referring Unavailable HOY, KAYLEIGH M Primary Care Unavailable DEIDRA ., DR VICTOR Attending Unavailable HOY ., DR VICTOR Consulting Unavailable DEIDRA ., DR VICTOR Primary Care Unavailable HOY ., DR VICTOR Admitting Unavailable HOY ., DR VICTOR Primary Care Unavailable HOY ., DR VICTOR Admitting Unavailable HOY ., DR VICTOR Attending Unavailable HOY ., DR VICTOR Consulting Unavailable HOY ., DR VICTOR Primary Care Unavailable HOOmar ., DR VICTOR Admitting Unavailable HOY ., [...] HAWA Attending Unavailable ELTAHAWY, EHAB Attending Unavailable Vishaly , Kayleigh Avila Primary Care Provider [phone] Allergies Allergy Classification Reported Allergen(s) Allergy Type Date of Onset Reaction(s) Facility (9 sources) Allopurinol; Translations: [ALLOPURINOL] Drug Allergy 5 Intolerance, Other (See Comments) [facility] (8 sources) diphtheria toxoid vaccine, inactivated / tetanus toxoid vaccine, inactivated; Translations: [TETANUS AND DIPHTHER. TOX (PF)] Drug Allergy 8 Intolerance [facility] (5 sources) Isosorbide; Translations: [ISOSORBIDE MONONITRATE] Drug Allergy 6 Intolerance [facility] (7 sources) tetanus toxoid vaccine, inactivated; Translations: [TETANUS TOXOID ADSORBED] Drug Allergy 5 Other: See Comments [facility] (3 sources) Isosorbide Dinitrate; Translations: [ISOSORBIDE DINITRATE] Drug Allergy 6 Nausea And Vomiting [facility] (3 sources) Spironolactone; Translations: [SPIRONOLACTONE ] Drug Allergy 3 Nausea And Vomiting [facility] (1 source) TETANUS VACCINES AND TOXOID; Translations: [TETANUS VACCINES AND TOXOID] Propensity to adverse reactions to drug (disorder) 5 [facility] Medications Current Medications Medication Drug Class(es) Dates Sig (Normalized) Sig (Original) atorvastatin 40 mg oral tablet (6 sources) HMG-CoA Reductase Inhibitor Start: 03-20-2018 atorvastatin (LIPITOR) 40 mg tablet Comment on above: Take by mouth q 24 H R. benoxinate hydrochloride 4 mg/ml / fluorescein sodium 2.5 mg/ml ophthalmic solution (1 source) Diagnostic Dye Start: 08-15-2022 End: 08-16-2022 fluorescein-benoxin ate 0.25-0.4 % 1 Drop (FLURESS) carvedilol 6.25 mg oral tablet (6 sources) alpha-Adrenergic Jose, beta-Adrenergic Jose Start: 08-01-2023 End: 07-31-2024 carvediloL (COREG) 6.25 mg tablet Take 1 tablet (6.25 mg total) by mouth. 0 08/01/2023 07/31/2024 Active take 1 tablet by mouth twice flora ly carvedilol (COREG) 12.5 mg tablet carvedilol 12.5 mg tablet Take 1 tablet twice a day by oral route. 0 Active Comment on above: carvedilol 12.5 mg t ablet Take 1 tablet twice a day by oral route. cholecalciferol 0.05 mg oral capsule (6 sources) Vitamin D Start: 3 take 1 capsule by mouth in the morning cholecalciferol, vitamin D3, 2,000 units capsule Take 1 capsule (2,000 Units total) by mouth in the morning. 0 08/01/2023 Active Start: 05-09-2022 take 1 capsule by [facility] once daily Cholecalciferol, Vitamin D3, 50 mcg (2,000 unit) cap cholecalciferol (vitamin D3) 50 mcg (2,000 unit) capsule TAKE 1 CAPSULE BY MOUTH EVERY DAY 0 05/09/2022 Active Comment on above: cholecalciferol (vit acosta D3) 50 mcg (2,000 unit) capsule TAKE 1 CAPSULE BY MOUTH EVERY DAY dapagliflozin 10 mg oral tablet (2 sources) Sodium-Glucose Cotransporter 2 Inhibitor Start: End: 024 take 1 tablet by mouth in the morning dapagliflozin propanediol (FARXIGA) 10 mg tablet Take 1 tablet (10 mg total) by mouth in the morning. 0 08/01/2023 07/31/2024 Active 30 actuat fluticasone furoate 0.1 mg/actuat / umeclidinium 0.0625 mg/actuat / vilanterol 0.025 mg/actuat dry powder inhaler (6 sources) Anticholinergic, Corticosteroid, beta2-Adrenergic Agonist Start: take 1 puff(s) by inhalation once daily TRELEGY ELLIPTA 100-62.5-25 mcg blister with device Inhale 1 puff once daily. 0 07/16/2023 Active Start: 07-21-2022 take 1 puff(s) by mo [facility] once daily TRELEGY ELLIPTA 100-62.5-25 mcg inhalation powder INHALE 1 PUFF BY MOUTH EVERYDAY *RINSE MOUTH AFTER USE* 0 07/21/2022 Active Comment on above: INHALE 1 PUFF BY RUEL EVERYDAY *RINSE MOUTH AFTER USE* furosemide 20 mg oral tablet (6 sources) Loop Diuretic Start: 04-02-2023 take 1 tablet by mouth once daily furosemide (LASIX) 20 mg tablet Take 1 tablet (20 mg total) by mouth daily. 0 04/02/2023 Active Start: 01-23-2020 take 1 tablet by ruel th once daily furosemide (LASIX) 20 mg tablet TAKE 1 TABLET BY MOUTH ONCE DAILY FOR 7 DAYS. 7 tablet 0 01/23/2020 Active Comment on above: TAKE 1 TABLET BY RUEL TH ONCE DAILY FOR 7 DAYS. hydroCHLOROthiazide 25 mg oral tablet (2 sources) Thiazide Diuretic Start : 05-28 hydroCHLOROthiazide (HYDRODIURIL) 25 mg tablet ipratropium bromide 0.021 mg/actuat metered dose nasal spray (2 sources) Anticholinergic Start : 07-16 take 2 spray(s) nasal route twice daily ipratropium (ATROVENT) 21 mcg (0.03 %) nasal spray SPRAY 2 SPRAYS INTO EACH NOSTRIL TWICE A DAY 0 07/16/2023 Active ketorolac tromethamine 5 mg/ml ophthalmic solution (4 sources) Nonsteroidal Anti-inflammatory Drug, Cyclooxygenase Inhibitor Start : 10-30 ketorolac (ACULAR) 0.5 % ophthalmic solution USE DIRECTED BY PHYSICIAN, IN OPERATIVE EYE, BEGINNING ONE DAY AFTER SURGERY 0 10/30/2022 Active Start: 04-12-2021 keTORolac (ACU LAR) 0.5 % ophthalmic solution USE DIRECTED BY PHYSICIAN, IN OPERATIVE EYE, BEGINNING ONE DAY AFTER SURGERY 5 mL 0 04/12/2021 Active Comment on above: USE DIRECTED BY Isacc MÉNDEZ, IN OPERATIVE EYE, BEGINNING ONE DAY AFTER SURGERY lisinopril 20 mg oral tablet (6 sources) Angiotensin Converting Enzyme Inhibitor Start: 3 End: 4 take 1 tablet by mouth in the morning lisinopriL (PRINIVIL,ZESTRIL) 20 mg tablet Take 1 tablet (20 mg total) by mouth in the morning. 0 04/06/2023 04/05/2024 Active Start: 08-07-2022 lisinopril (ZE STRIL, PRINIVIL) 20 mg tablet pantoprazole 40 mg delayed release oral tablet (6 sources) Proton Pump Inhibitor Start: 03-20-2018 pantoprazole (PROTONIX) 40 mg EC tablet Comment on above: pantoprazole 40 mg t ablet,delayed release TAKE 1 TABLET BY MOUTH EVERY DAY phenylephrine hydrochloride 25 mg/ml ophthalmic solution (1 source) alpha-1 Adrenergic Agonist Start: 08-15-2022 End: 08-16-2022 PHENYLephrine 2.5 % 1 Drop (AK-DILATE, MENA-SYNEPHRINE) microencapsulated potassium chloride 10 meq extended release oral tablet (6 sources) take 1 tablet by mouth in the morning potassium chloride (KLOR-CON M 10) 10 MEQ CR tablet Take 1 tablet (10 mEq total) by mouth in the morning. 0 Active Comment on above: q 24 HR. proparacaine hydrochloride 5 mg/ml ophthalmic solution (1 source) Local Anesthetic Start: 08-15-2022 End: 08-16-2022 proparacaine 0.5 % 1 Drop (ALCAINE) sertraline 100 mg oral tablet (6 sources) Serotonin Reuptake Inhibitor sertraline (ZOLOFT) 100 mg tablet Take 1 tablet (100 mg total) by mouth. 0 Active Comment on above: Take 100 mg by mouth once daily. 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 24 tablet 0 08/15/2023 Active tiZANidine 4 mg oral tablet (6 sources) Central alpha-2 Adrenergic Agonist Start: 03-20-2018 tiZANidine (ZANAFLEX) 4 mg tablet Comment on above: tizanidine 4 mg tabl et TAKE 1 TABLET BY MOUTH THREE TIMES DAILY tropicamide 10 mg/ml ophthalmic solution (1 source) Anticholinergic Start: 08-15-2022 End: 08-16-2022 tropicamide 1 % 1 Drop (MYDRIACYL) Completed/Discontinued Medications Medication Drug Class(es) Dates Sig (Normalized) Sig (Original) aspirin 81 mg chewable tablet (6 sources) Platelet Aggregation Inhibitor, Nonsteroidal Anti-inflammatory Drug Start: 01-23-2020 take 1 tablet by mouth once daily aspirin 81 mg chewable tablet CHEW AND SWALLOW 1 TABLET BY MOUTH ONCE DAILY. 90 tablet 0 01/23/2020 Active take 1 tablet by mouth in the mo rning aspirin 81 mg Take 1 tablet (81 mg total) by mouth in the morning. 0 Active Comment on above: CHEW AND SWALLOW 1 T ABLET BY MOUTH ONCE DAILY. liothyronine sodium 0.005 mg oral tablet (4 sources) l-Triiodothyronine Start: 07-25-20 take 2 tablets by mouth once daily liothyronine (CYTOMEL) 5 mcg tablet Take 10 mcg by mouth once daily. 0 07/25/2022 Active Comment on above: Take 10 mcg by mouth once daily. prednisoLONE acetate 10 mg/ml ophthalmic suspension (4 sources) Corticosteroid Start: 04-12-20 prednisoLONE acetate (PRED FORTE, ECONOPRED PLUS) 1 % ophthalmic suspension USE DIRECTED BY PHYSICIAN, IN OPERATIVE EYE, BEGINNING ONE DAY AFTER SURGERY 5 mL 0 04/12/2021 Active Comment on above: USE DIRECTED BY Isacc MÉNDEZ, IN OPERATIVE EYE, BEGINNING ONE DAY AFTER SURGERY Problems Active Problems Problem Classification Problem Date [...] Coronary atherosclerosis; Translations: [Atherosclerotic heart disease of [place] coronary artery without angina pectoris] Onset: 06-22-2015 06-22-2015 Chronic Disorders of lipid metabolism (7 sources) Hyperlipidemia; Translations: [Hyperlipidemia, unspecified] Onset: 07-24-2015 01-22-2020 Chronic Esophageal disorders (2 sources) Gastroesophageal reflux disease; Translations: [Gastro-esophageal reflux disease [...] in diseases classified elsewhere] Onset: 01-11-2023 Chronic Residual codes; unclassified (1 source) Family history of cancer of colon; Translations: [Family history of malignant neoplasm of digestive organs] 10-11-2023 Episodic Retinal detachments; defects; vascular occlusion; and retinopathy [...] Test Name Value Interpretation Reference Range Facility EGD / Colonoscopyon 10-10-19 24 [facility] Surgical PathologyOrdered By : Naomi Bautista on 10-10-2023 [facility] Orders Onlyon 09-05-2023 Orders Only [id number] Darek Mejía 1950 Date Provider Department Center 09/05/2023 NARAYAN RODRIGUEZ Family History Problem Relation Age of Onset Coronary artery disease Father Diabetes Father Family Status - Relation Status Age at Father [facility] 35on 08-17-2023 36 6 weeks s/p cardioversion would be 08/31/2023. Judy at Dr. Zhang' office made aware via fax. [facility] [address] Willian henderson' office called requesting Darek Coombs 3 days prior to EGD/colonscopy scheduled on 09/05/2023. Please advise. [facility] Office Visiton 08-01-2023 Follow-up visit [id number] Darek Mejía 1950 F Date Provider Department Center 08/01/2023 271-OPAL [facility] Family History Problem Relation Age of Onset Coronary artery disease Father Diabetes Father Family Status - Relation Status Age at Father Level of Service:[address] [place] OFFICE/OUTPATIENT ESTABLISHED HIGH MDM 40-54 MIN Normal [facility] 30on 07-22-2023 30 Problem: Pain - [...] dysrhythmias or at baseline Outcome: Progressing Normal [facility] 30 The patient is Moderately Stable [...] dysrhythmias or at baseline Outcome: Progressing Normal [facility] ANTI-XA (HEPARIN LEVEL)on HEPARIN UNFRACTIONATED (U/ML) IN PPP BY CHROMOGENIC METHOD 0.17 IU/mL Low 0.3-0.7 [facility] Comment on above: Result Comment: [place] roxaban and Apixaban will interfere with the anti Xa assay used to monitor UFH and LMWH. Performed By: #### L [id number] #### [facility] ([facility]) [address] [place] [address] HEPARIN UNFRACTIONATED (U/ML) IN PPP BY CHROMOGENIC METHOD 0.21 IU/mL Low 0.3-0.7 [facility] Comment on above: Result Comment: [place] roxaban and Apixaban will interfere with the anti Xa assay used to monitor UFH and LMWH. Performed By: #### L [id number] #### [facility] ([facility]) [address] [place] [address] CBCon 07-22-2023 Erythrocyte distribution width (RBC) [Ratio] 16.5 % High 11.5-15.0 [facility] Comment on above: Performed By: #### L [id number] #### [facility] ([facility]) [address] [facility] [address] ERYTHROCYTE MEAN CORPUSCULAR HEMOGLOBIN CONCENTRATION (G/DL) BY AUTOMATED 32.0 g/dL Normal 32.0-35.0 [facility] Comment on above: Performed By: #### L [id number] #### [facility] ([facility]) [address] [place] [place] [address] Hematocrit (Bld) [Volume fraction] 29.1 % Low 36.0-48.0 [facility] Comment on above: Performed By: #### L [id number] #### [facility] ([facility]) [address] [place] [address] Hemoglobin (Bld) [Mass/Vol] 9.3 g/dL Low 12.0-15.0 [facility] Comment on above: Performed By: #### L [id number] #### [facility] ([facility]) [address] [facility] [place] [address] MCH (RBC) [Entitic mass] 27.0 pg Normal 27.0-33.0 [facility] Comment on above: Performed By: #### L [id number] #### [facility] ([facility]) [address] [place] [address] MCV (RBC) [Entitic vol] 84.6 fL Normal 82.0-98.0 [facility] Comment on above: Performed By: #### L [id number] #### [facility] ([facility]) [address] [facility] [place] [place] [address] PLATELETS (10*3/UL) IN BLOOD AUTOMATED COUNT 202 10*3/uL Normal 150-400 [facility] Comment on above: Performed By: #### L [id number] #### [facility] ([facility]) [address] [place] [id number] RBC (Bld) [#/Vol] 3.44 10*6/uL Low 3.80-5.00 [facility] Comment on above: Performed By: #### L [id number] #### [facility] ([facility]) [address] [place] [id number] WBC (Bld) [#/Vol] 6.43 10*3/uL Normal 4.00-10.60 [facility] Comment on above: Performed By: #### L [id number] #### [facility] ([facility]) [address] [place] [id number] 30on 07-21-2023 30 Problem: Pain - Adul [...] from fall injury Outcome: Progressing Flowsheets (Taken 07/21/202342) Free from fall injury: Assess patient frequently for physical needs Identify cognitive and physical deficits and behaviors that affect risk of falls [place] fall precautions as indicated by assessment Educate [...] maintained or improved Outcome: Progressing Flowsheets (Taken 07/21/2023 0740) Care Plan - Patient's Chronic Conditions and [...] and hemodynamic stability Outcome: Progressing Flowsheets (Taken 07/21/2023 0740) Maintains optimal cardiac output and hemodynamic stability: Monitor blood pressure and heart rate Monitor urine output and notify Licensed Independent Practitioner for values outside of normal range Assess for signs of decreased cardiac output Goal: Absence of cardiac dysrhythmias or at baseline Outcome: Progressing Flowsheets (Taken 07/21/2023 0740) Absence of cardiac dysrhythmias or at baseline: Monitor cardiac rate and rhythm Assess for signs of decreased cardiac output The patient is Moderately Stable - Low risk of patient condition declining or worsening The patient's goals for the shift include comfort The clinical goals for the shift include VSS; safety Normal [facility] 30 The patient is Moderately Stable [...] or at baseline Outcome: Not Progressing Normal [facility] ANTI-XA (HEPARIN LEVEL)on HEPARIN UNFRACTIONATED (U/ML) IN PPP BY CHROMOGENIC METHOD 0.14 IU/mL Invalid Interpretation Code 0.3-0.7 [facility] Comment on above: Result Comment: [place] roxaban and Apixaban will interfere with the anti Xa assay used to monitor UFH and LMWH. Performed By: #### L [id number] ####[facility] ([facility])[address] [place] [address] HEPARIN UNFRACTIONATED (U/ML) IN PPP BY CHROMOGENIC METHOD <0.10 Invalid Interpretation Code 0.3-0.7 [facility] Comment on above: Result Comment: [place] roxaban and Apixaban will interfere with the anti Xa assay used to monitor UFH and LMWH. Performed By: #### L [id number] #### [facility] ([facility]) [address] [place] [address] HEPARIN UNFRACTIONATED (U/ML) IN PPP BY CHROMOGENIC METHOD <0.10 Invalid Interpretation Code 0.3-0.7 [facility] Comment on above: Order Comment: Check anti-Xa level every 6 hours while on heparin infusion, or per protocol. Result Comment: [place] roxaban and Apixaban will interfere with the anti Xa assay used to monitor UFH and LMWH. Performed By: #### L [id number] #### [facility] ([facility]) [address] [place] [id number] B-TYPE NATRIURETIC PEPTIDEon 07-21-2023 Natriuretic peptide B (Bld) [Mass/Vol] 841 pg/mL High 0-100 [facility] Comment on above: Performed By: #### L [id number] #### [facility] ([facility]) [address] [place] [id number] COMPREHENSIVE METABOLIC PANE Oscar 07-21-2023 Albumin [Mass/Vol] 2.9 g/dL Low 3.5-5.7 [facility] Comment on above: Performed By: #### L [id number] #### [facility] ([facility]) [address] [facility] [place] [id number] ALP [Catalytic activity/Vol] 97 U/L Normal 34-104 [facility] Comment on above: Performed By: #### L [id number] #### [facility] ([facility]) [address] [facility] [place] [address] ALT [Catalytic activity/Vol] 12 U/L Normal 7-52 [facility] Comment on above: Performed By: #### L [id number] #### [facility] ([facility]) [address] [facility] [place] [address] Anion gap [Moles/Vol] 11 mmol/L Normal 7-20 [facility] Comment on above: Performed By: #### L [id number] #### [facility] ([facility]) [address] [place] [address] AST [Catalytic activity/Vol] 21 U/L Normal 13-39 [facility] Comment on above: Performed By: #### L [id number] #### [facility] ([facility]) [address] [place] [address] Bilirubin [Mass/Vol] 0.6 mg/dL Normal 0.3-1.0 [facility] Comment on above: Performed By: #### L [id number] #### [facility] ([facility]) [address] [place] [address] Calcium [Mass/Vol] 9.7 mg/dL Normal 8.6-10.3 [facility] Comment on above: Performed By: #### L [id number] #### [facility] ([facility] [address] [place] [address] Chloride [Moles/Vol] 108 mmol/L High 98-107 [facility] Comment on above: Performed By: #### L [id number] #### [facility] ([facility]) [address] [place] [address] CO2 [Moles/Vol] 23 mmol/L Normal 21-31 [facility] Comment on above: Performed By: #### L [id number] #### [facility] ([facility]) [address] [place] [address] Creatinine [Mass/Vol] 0.68 mg/dL Normal 0.60-1.20 [facility] Comment on above: Performed By: #### L [id number] #### [facility] ([facility]) [address] [place] [address] GLOMERULAR FILTRATION RATE ML/MIN/1.73 SQ M.PREDICTED 91.3 mL/min/1.73m*2 Normal >60.0 [facility] Comment on above: Result Comment: [facility]???s estimated glomerular filtration rate (eGFR) will [...] individuals. Performed By: #### L [id number] #### [facility] ([facility]) [address] [place] [address] Glucose [Mass/Vol] 92 mg/dL Normal 70-100 [facility] Comment on above: Performed By: #### L [id number] #### [facility] ([facility]) [address] [place] [address] Potassium [Moles/Vol] 3.8 mmol/L Normal 3.5-5.1 [facility] Comment on above: Performed By: #### L [id number] #### [facility] ([facility]) [address] [place] [address] Protein [Mass/Vol] 5.4 g/dL Low 6.0-8.3 [facility] Comment on above: Performed By: #### L [id number] #### [facility] ([facility]) [address] [place] [address] Sodium [Moles/Vol] 138 mmol/L Normal 136-145 [facility] Comment on above: Performed By: #### L [id number] #### [facility] ([facility]) [address] [place] [address] Urea nitrogen [Mass/Vol] 19 mg/dL Normal 7-25 [facility] Comment on above: Performed By: #### L [id number] #### [facility] ([facility]) [address] [place] [address] UREA NITROGEN/CREATININE (MASS RATIO) IN SER/PLAS 27.9 Normal [facility] Comment on above: Performed By: #### L [id number] #### [facility] ([facility]) [address] [place] [address] HEMOGLOBIN AND HEMATOCRIT, B LOODon 07-21-2023 Hematocrit (Bld) [Volume fraction] 29.9 % Low 36.0-48.0 [facility] Comment on above: Performed By: #### L [id number] #### [facility] ([facility]) [address] [place] [address] Hemoglobin (Bld) [Mass/Vol] 9.5 g/dL Low 12.0-15.0 [facility] Comment on above: Performed By: #### L [id number] #### [facility] ([facility]) [address] [place] [address] MAGNESIUMon 07-21-2023 Magnesium [Mass/Vol] 1.5 mg/dL Low 1.9-2.7 [facility] Comment on above: Performed By: #### L [id number] ####[facility] ([facility])[address] [place] [address] T3, FREEon 07-21-2023 TRIIODOTHYRONINE (T3) FREE (PG/ML) IN SER/PLAS 3.7 pg/mL Normal 2.5-3.9 [facility] Comment on above: Performed By: #### L [id number] ####[facility] ([facility])[address] [place] [address] T4, FREEon 07-21-2023 THYROXINE (T4) FREE (NG/DL) IN SER/PLAS 1.14 ng/dL Normal 0.71-1.85 [facility] Comment on above: Performed By: #### L [id number] ####[facility] ([facility])[address] [place] [place] [address] TROPONIN Ion 07-21-2023 Troponin I.cardiac [Mass/Vol] 0.04 ng/mL Normal 0.00-0.04 [facility] Comment on above: Performed By: #### L [id number] #### [facility] ([facility]) [address] [facility] [place] [address] Troponin I.cardiac [Mass/Vol] 0.05 ng/mL High 0.00-0.04 [facility] Comment on above: Performed By: #### L [id number] ####[facility] [facility])[address] [place] [address] VITAMIN D 1,25 DIHYDROXYon 1 09-20-2022 VITAMIN D 1,25-DIHYDROXY 32.9 pg/mL Normal 19.9-79.3 [facility] Comment on above: Result Comment: INTE RPRETIVE INFORMATION: Vitamin D, 1,25-Dihydroxy This test is primarily indicated during patient evaluation for hypercalcemia and renal failure. A normal result does not rule out Vitamin D deficiency. The recommended test for diagnosing Vitamin D deficiency is Vitamin D 25-hydroxy. Performed By: [facility] [address] [place] [id number] Vision Impaired Teacher: Zeus Ventura MD, PhD CLIA Number: [id number] Performed By: #### L [id number] ####[facility] ([facility])[address] [place] [address] VITAMIN D 25 HYDROXYon 07-21 CALCIDIOL (25 [place] VITAMIN D3) (NG/ML) IN SER/PLAS 23.2 ng/mL Low 30.0-80.0 [facility] Comment on above: Result Comment: >80. 0 Toxicity possible Performed By: #### L [id number] #### [facility] (BEAKER) [address] [place] [address] 30on 07-20-2023 30 Daily Case Managemen t Update Multidisciplinary rounds have been completed. End of shift note. Per Progress Note/s: ER admit from telecom specialist office; new onset A-Fib. Heparin gtt. Cardiac [...] Question: Reason for OT? Answer: fall 07/19/232117 [facility] 30 Problem: Pain - Adul t Goal: Verbalizes/displays adequate comfort level or baseline comfort level Outcome: Progressing Flowsheets (Taken 07/20/2023 0700) Verbalizes/displays adequate comfort level or baseline comfort [...] and behaviors that affect risk of falls [place] fall precautions as indicated by assessment Educate patient/family on patient safety, including physical limitations Instruct patient to call for assistance with activity based on assessment Modify environment to reduce risk of injury Consider OT/PT consult to assist with strengthening/mobility Problem: Discharge Planning Goal: Discharge to home or other facility with appropriate resources Outcome: Progressing Flowsheets (Taken 07/20/2023 0700) Discharge to home or other facility with appropriate resources: Identify barriers to discharge with patient and caregiver Arrange for needed discharge resources and transportation as appropriate Identify discharge learning needs (meds, wound care, etc) Problem: Chronic Conditions and Co-morbidities Goal: Patient's chronic conditions and co-morbidity symptoms are monitored and maintained or improved Outcome: Progressing Flowsheets (Taken 07/20/2023 0700) Care Plan - Patient's Chronic Conditions and [...] for the shift include VSS; safety Normal [facility] ANESon 07-20-2023 ANES Patient: Darek Mejía Choose an anesthesia [...] fellow and attending. Additional Equipment Requests Normal [facility] ANES Patient: Darek Dickjocelynemarlene Choose an anesthesia record to view details [...] fellow and attending. Additional Equipment Requests Normal [facility] ANTI-XA (HEPARIN LEVEL)on HEPARIN UNFRACTIONATED (U/ML) IN PPP BY CHROMOGENIC METHOD <0.10 Invalid Interpretation Code 0.3-0.7 [facility] Comment on above: Order Comment: Check anti-Xa level every 6 hours while on heparin infusion, or per protocol. Result Comment: [place] roxaban and Apixaban will interfere with the anti Xa assay used to monitor UFH and LMWH. Performed By: #### L [id number] #### [facility] (BEAKER) [address] [place] [id number] CBCon 07-20-2023 Erythrocyte distribution width (RBC) [Ratio] 16.4 % High 11.5-15.0 [facility] Comment on above: Performed By: #### L [id number] #### [facility] ([facility]) [address] [place] [id number] ERYTHROCYTE MEAN CORPUSCULAR HEMOGLOBIN CONCENTRATION (G/DL) BY AUTOMATED 32.2 g/dL Normal 32.0-35.0 [facility] Comment on above: Performed By: #### L [id number] #### [facility] ([facility]) [address] [place] [id number] Hematocrit (Bld) [Volume fraction] 32.3 % Low 36.0-48.0 [facility] Comment on above: Performed By: #### L [id number] #### [facility] ([facility]) [address] [place] [address] Hemoglobin (Bld) [Mass/Vol] 10.4 g/dL Low 12.0-15.0 [facility] Comment on above: Performed By: #### L [id number] #### [facility] ([facility]) [address] [place] [address] MCH (RBC) [Entitic mass] 26.8 pg Low 27.0-33.0 [facility] Comment on above: Performed By: #### L [id number] #### [facility] ([facility]) [address] [place] [address] MCV (RBC) [Entitic vol] 83.2 fL Normal 82.0-98.0 [facility] Comment on above: Performed By: #### L [id number] #### [facility] ([facility]) [address] [place] [id number] PLATELETS (10*3/UL) IN BLOOD AUTOMATED COUNT 262 10*3/uL Normal 150-400 [facility] Comment on above: Performed By: #### L [id number] #### [facility] ([facility]) [address] [place] [address] RBC (Bld) [#/Vol] 3.88 10*6/uL Normal 3.80-5.00 [facility] Comment on above: Performed By: #### L [id number] #### [facility] ([facility]) [address] [place] [id number] WBC (Bld) [#/Vol] 5.76 10*3/uL Normal 4.00-10.60 [facility] Comment on above: Performed By: #### L [id number] #### [facility] ([facility]) [address] [facility] [place] [address] CONSULTon 07-20-2023 CONSULT --- Attestation signed by [...] CKMB, CKM (more content not included)... Normal [facility] HPon 07-20-2023 History Of Present Illness [...] further evaluate symptoms Faith Hassan DO, MPH Quantitative Consultant The [facility] HP H&P reviewed. The patient was examined and there are no changes to the H&P. Normal [facility] ANTI-XA (HEPARIN LEVEL)on HEPARIN UNFRACTIONATED (U/ML) IN PPP BY CHROMOGENIC METHOD <0.10 Invalid Interpretation Code 0.3-0.7 [facility] Comment on above: Order Comment: Check anti-Xa level every 6 hours while on heparin infusion, or per protocol. Result Comment: [place] roxaban and Apixaban will interfere with the anti Xa assay used to monitor UFH and LMWH. Performed By: #### L [id number] #### [facility] ([facility]) [address] [place] [address] APTTon 07-19-2023 ACTIVATED PARTIAL THROMBOPLASTIN TIME IN PPP BY COAGULATION ASSAY 29.1 Seconds Normal 25.0-35.0 [facility] Comment on above: Order Comment: Basel ine aPTT before initiating heparin infusion. Result Comment: Clin ical significance of the APTT is questionable in the presence of heparin. Performed By: #### L [id number] ####[facility] ([facility])[address] [place] [address] CBC WITH AUTO DIFFERENTIALon 07-19-2023 Basophils (Bld) [#/Vol] 0.07 10*3/uL Normal 0.00-0.20 [facility] Comment on above: Performed By: #### L [id number] #### [facility] ([facility]) [address] [place] [address] Basophils/100 WBC (Bld) 1.1 % High 0.0-1.0 [facility] Comment on above: Performed By: #### L [id number] #### [facility] ([facility]) [address] [place] [address] Eosinophils (Bld) [#/Vol] 0.10 10*3/uL Normal 0.00-0.50 [facility] Comment on above: Performed By: #### L [id number] #### [facility] [address] [place] [address] Eosinophils/100 WBC (Bld) 1.6 % Normal 0.0-6.0 [facility] Comment on above: Performed By: #### L [id number] #### [facility] ([facility]) [address] [place] [address] Erythrocyte distribution width (RBC) [Ratio] 16.4 % High 11.5-15.0 [facility] Comment on above: Performed By: #### L [id number] #### [facility] ([facility]) [address] [place] [address] ERYTHROCYTE MEAN CORPUSCULAR HEMOGLOBIN CONCENTRATION (G/DL) BY AUTOMATED 31.8 g/dL Low 32.0-35.0 [facility] Comment on above: Performed By: #### L [id number] #### [facility] ([facility]) [address] [place] [address] Hematocrit (Bld) [Volume fraction] 35.5 % Low 36.0-48.0 [facility] Comment on above: Performed By: #### L [id number] #### [facility] [address] [place] [address] Hemoglobin (Bld) [Mass/Vol] 11.3 g/dL Low 12.0-15.0 [facility] Comment on above: Performed By: #### L [id number] #### [facility] ([facility]) [address] [place] [address] Immature granulocytes (Bld) [#/Vol] 0.02 10*3/uL Normal 0.00-0.20 [facility] Comment on above: Performed By: #### L [id number] #### [facility] ([facility]ER) [address] [place] [address] Immature granulocytes/100 WBC (Bld) 0.3 % Normal 0.0-1.0 [facility] Comment on above: Performed By: #### L [id number] #### [facility] ([facility]) [address] [place] [address] Lymphocytes (Bld) [#/Vol] 1.76 10*3/uL Normal 1.20-4.00 [facility] Comment on above: Performed By: #### L [id number] #### [facility] ([facility]) [address] [place] [address] Lymphocytes/100 WBC (Bld) 28.5 % Normal 20.0-45.0 [facility] Comment on above: Performed By: #### L [id number] #### [facility] ([facility]) [address] [place] [address] MCH (RBC) [Entitic mass] 26.9 pg Low 27.0-33.0 [facility] Comment on above: Performed By: #### L [id number] #### [facility] ([facility]) [address] [place] [address] MCV (RBC) [Entitic vol] 84.5 fL Normal 82.0-98.0 [facility] Comment on above: Performed By: #### L [id number] #### [facility] ([facility]) [address] [place] [address] Monocytes (Bld) [#/Vol] 0.48 10*3/uL Normal 0.10-1.00 [facility] Comment on above: Performed By: #### L [id number] #### [facility] ([facility]) [address] [place] [address] Monocytes/100 WBC (Bld) 7.8 % Normal 5.0-12.0 [facility] Comment on above: Performed By: #### L [id number] #### [facility] ([facility]) [address] [place] [address] Neutrophils (Bld) [#/Vol] 3.74 10*3/uL Normal 1.60-7.60 [facility] Comment on above: Performed By: #### L [id number] #### [facility] ([facility] [address] [place] [address] Neutrophils/100 WBC (Bld) 60.7 % Normal 40.0-72.0 [facility] Comment on above: Performed By: #### L [id number] #### [facility] ([facility]) [address] [place] [address] NRBC (PER 100 WBCS) BY AUTOMATED COUNT 0.0 % Normal 0 [facility] Comment on above: Performed By: #### L [id number] #### [facility] ([facility]) [address] [place] [address] PLATELETS (10*3/UL) IN BLOOD AUTOMATED COUNT 289 10*3/uL Normal 150-400 [facility] Comment on above: Performed By: #### L [id number] #### [facility] ([facility]) [address] [place] [address] RBC (Bld) [#/Vol] 4.20 10*6/uL Normal 3.80-5.00 [facility] Comment on above: Performed By: #### L [id number] #### [facility] ([facility]) [address] [place] [address] WBC (Bld) [#/Vol] 6.17 10*3/uL Normal 4.00-10.60 [facility] Comment on above: Performed By: #### L [id number] #### [facility] ([facility]) [address] [place] [address] COMPREHENSIVE METABOLIC PANE Oscar 07-19-2023 Albumin [Mass/Vol] 3.7 g/dL Normal 3.5-5.7 [facility] Comment on above: Performed By: #### L [id number] #### [facility] ([facility] [address] [place] [address] ALP [Catalytic activity/Vol] 132 U/L High 34-104 [facility] Comment on above: Performed By: #### L [id number] #### [facility] ([facility]) [address] [place] [address] ALT [Catalytic activity/Vol] 17 U/L Normal 7-52 [facility] Comment on above: Performed By: #### L [id number] #### [facility] ([facility]) [address] [place] [address] Anion gap [Moles/Vol] 11 mmol/L Normal 7-20 [facility] Comment on above: Performed By: #### L [id number] #### [facility] ([facility]) [address] [place] [address] AST [Catalytic activity/Vol] 23 U/L Normal 13-39 [facility] Comment on above: Performed By: #### L [id number] #### [facility] ([facility]) [address] [place] [address] Bilirubin [Mass/Vol] 0.9 mg/dL Normal 0.3-1.0 [facility] Comment on above: Performed By: #### L [id number] #### [facility] ([facility]) [address] [place] [address] Calcium [Mass/Vol] 10.7 mg/dL High 8.6-10.3 [facility] Comment on above: Performed By: #### L [id number] #### [facility] ([facility]) [address] [place] [address] Chloride [Moles/Vol] 104 mmol/L Normal 98-107 [facility] Comment on above: Performed By: #### L [id number] #### [facility] ([facility]) [address] [place] [address] CO2 [Moles/Vol] 28 mmol/L Normal 21-31 [facility] Comment on above: Performed By: #### L [id number] #### [facility] ([facility]) [address] [place] [address] Creatinine [Mass/Vol] 0.66 mg/dL Normal 0.60-1.20 [facility] Comment on above: Performed By: #### L [id number] #### [facility] ([facility]) [address] [place] [address] GLOMERULAR FILTRATION RATE ML/MIN/1.73 SQ M.PREDICTED 92.0 mL/min/1.73m*2 Normal >60.0 [facility] Comment on above: Result Comment: [facility]???s estimated glomerular filtration rate (eGFR) will [...] individuals. Performed By: #### L [id number] #### [facility] ([facility]) [address] [place] [address] Glucose [Mass/Vol] 131 mg/dL High 70-100 [facility] Comment on above: Performed By: #### L [id number] #### [facility] ([facility]) [address] [place] [address] Potassium [Moles/Vol] 3.5 mmol/L Normal 3.5-5.1 [facility] Comment on above: Performed By: #### L [id number] #### [facility] ([facility]) [address] [place] [address] Protein [Mass/Vol] 6.8 g/dL Normal 6.0-8.3 [facility] Comment on above: Performed By: #### L [id number] #### [facility] ([facility]) [address] [place] [address] Sodium [Moles/Vol] 139 mmol/L Normal 136-145 [facility] Comment on above: Performed By: #### L [id number] #### [facility] ([facility]ER) [address] [place] [address] Urea nitrogen [Mass/Vol] 15 mg/dL Normal 7-25 [facility] Comment on above: Performed By: #### L [id number] #### [facility] ([facility]ER) [address] [place] [id number] UREA NITROGEN/CREATININE (MASS RATIO) IN SER/PLAS 22.7 Normal [facility] Comment on above: Performed By: #### L [id number] #### [facility] ([facility]ER) [address] [place] [id number] [facility] 07-19-2023 [facility] Note Chief Complaint: Patient here [...] with ejection (more content not included)... Normal [facility] MAGNESIUMon 07-19-2023 Magnesium [Mass/Vol] 1.6 mg/dL Low 1.9-2.7 [facility] Comment on above: Performed By: #### L [id number] ####[facility] ([facility]ER)[address] [place] [address] Office Visiton 07-19-2023 Follow-up visit [id number] Darek Mejía 1950 F Date Provider Department Center 07/19/2023 Areli-OPAL CARVAL[facility] Family History Problem Relation Age of Onset Coronary artery disease Father Diabetes Father Family Status - Relation Status Age at Father Level of Service:33397 [place] OFFICE/OUTPATIENT ESTABLISHED HIGH MDM 40-54 MIN Normal [facility] T4, FREEon 07-19-2023 THYROXINE (T4) FREE (NG/DL) IN SER/PLAS 1.31 ng/dL Normal 0.71-1.85 [facility] Comment on above: Performed By: #### L [id number] #### [facility] ([facility]) [address] [place] [address] TSH3 REFLEX TO FT4on 023 THYROTROPIN (MIU/L) IN SER/PLAS BY DETECTION LIMIT <= 0.05 MIU/L 0.06 mIU/L Low 0.34-5.60 [facility] Comment on above: Performed By: #### L [id number] #### [facility] ([facility]) [address] [place] [address] 36on 07-02-2023 36 Sandy just did patien t's echo. She came over to the office to make us aware that she sounded like she was in afib, and patient didn't recall ever being told she had this. She did ECG. I have assigned it to you in media theorist and author of. Please advise. Thanks. [facility] Office Visiton 04-23-2023 Follow-up visit [id number] Darek Mejía 1950 F Date Provider Department Center 04/23/2023 271-OPAL CARVALHO [place]NA Roy Family History Problem Relation Age of Onset Coronary artery disease Father Diabetes Father Family Status - Relation Status Age at Father Level of Service:97643 [place] OFFICE/OUTPATIENT ESTABLISHED MOD MDM 30-39 MIN [facility] Office Visiton 01-31-2023 Follow-up visit [id number] Darek Mejía 1950 F Date Provider Department Center 01/31/2023 Brian-HAWA RUSH [place] Roy Family History Problem Relation Age of Onset Coronary artery disease Father Diabetes Father Family Status - Relation Status Age at Father Level of Service:45988 [place] OFFICE/OUTPATIENT ESTABLISHED MOD MDM 30-39 MIN [facility] 36on 01-11-2023 36 I am putting in a script for aldactone, then she needs BMP in 1 week to assess renal function and potassium level. Have her f/U in 2-4 weeks to review b/p please Normal [facility] Orders Onlyon 01-11-2023 Orders Only [id number] Darek Mejía 1950 F Date Provider Department Center 01/11/2023 [facility] Family History Problem Relation Age of Onset Coronary artery disease Father Diabetes Father Family Status - Relation Status Age at Father Normal [facility] 36on 01-10-2023 35 . Normal [facility] Office Visiton 12-21-2022 Follow-up visit [id number] Darek Mejía 1950 F Date Provider Department Center 12/21/2022 [place] MAR[place]NA [facility] Family History Problem Relation Age of Onset Coronary artery disease Father Diabetes Father Family Status - Relation Status Age at Father Level of Service:86089 [place] OFFICE/OUTPATIENT ESTABLISHED MOD MDM 30-39 MIN Reason for Visit and Comments: Coronary Artery Disease [187] Congestive Heart Failure [127] Hypertension [635199] Normal [facility] FREE T3on 11-30-2022 FREE T3 2.19 pg/mlL Normal 2.18-3.98 [facility] Comment on above: Performed By: #### T 4, FT3, TSH #### [facility] [address] [address] [address] Rich Pham T4on 11-30-2022 T4 [Mass/Vol] 11.10 ug/dL Normal 4.80-13.90 [facility] Comment on above: Performed By: #### T 4, FT3, TSH #### [facility] [address] [address] [address] Rich Pham TSHon 11-30-2022 TSH 0.525 uIU/mL Normal 0.358-3.740 [facility] Comment on above: Performed By: #### T 4, FT3, TSH #### [facility] [address] [address] [address] Rich Pham ANES POSTPROC EVALon 023 ANES POSTPROC EVAL HNO ID: [id number] Author: David Dunn II, DO Service: Anesthesiology Author Type: Anesthesiologist Type: Anesthesia Postprocedure Evaluation Filed: 11/01/2022 12:35 PM Note Text: POST ANESTHESIA EVALUATION NOTE : 1950 Procedure Summary Date: 11/01/22 Room / Location: [address] Anesthesia Start: 1109 Anesthesia Stop: 1130 [...] November 01, 2022 TIME: 12:35 PM CSN: [id number] Normal [facility] ANES PRE-OPon 11-01-2022 ANES PRE-OP HNO ID: [id number] Author: David Dunn II, DO Service: Anesthesiology Author Type: Anesthesiologist Type: Anesthesia Preprocedure Evaluation Filed: 11/01/2022 10:15 AM Note Text: ANESTHESIOLOGY DAY OF SURGERY NOTE : 1950 Procedure Information Date/Time: 11/01/22 1100 Procedures: PHACOEMULSIFICATION CATARACT IMPLANT INTRAOCULAR LENS W/O ENDOSCOPIC CYCLOPHOTOCOAGULATION (Left: Eye) OPHTHALMIC BIOMETRY BY PARTIAL COHERENCE INTERFEROMETRY W/INTRAOCULAR LENS POWER CALCULATION (Left: Eye) Location: [address] Surgeons: Aleksandar Wilson V, MD Estimated body mass index is 21.31 kg/m? as calculated from the following: Height as of 10/30/22: 167.6 cm (5' 6 ). Weight as of 10/30/22: 59.9 kg (132 lb). 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 Patient / Responsible Libertarian agrees to proceed: yes Patient / Surrogate [...] November 01, 2022 TIME: 10:09 AM CSN: [id number] [facility] OPERATIVE NOon 11-01-2022 OPERATIVE NO HNO ID: [id number] Author: Aleksandar Wilson V, MD Service: Ophthalmology Author Type: Physician Type: Operative Report Filed: 11/01/2022 11:43 AM Note Text: OPERATIVE REPORT DATE OF SERVICE: November 01, 2022 PRIMARY SURGEON: Aleksandar Wilson M.D. ROBOTIC MACHINE OPERATOR: None Procedure(s) (LRB): PHACOEMULSIFICATION CATARACT IMPLANT INTRAOCULAR [...] corneal incision was created temporally with a Stevens blade then a 2.4 mm keratome. The anterior chamber was reformed with Viscoat, after which the anterior capsule was opened centrally. Using the Utrata forceps a continuous curvilinear capsulorrhexis of approximately 5.5 mm round was created. Gentle hydrodissection was accomplished using preservative-free lidocaine on a 27-gauge cannula. Using the Renny phacoemulsification unit with the Kelman curved tip, the anterior chamber was entered [...] Implant Name Type Inv. Item Serial No. Boiler Fitter Lot No. LRB No. Used Action Model No. LENS IOL 0D +21 [employer] - [id number] Intraocular Lens LENS IOL 0D +21 [employer] [id number] [employer] Left 1 Implanted [id number] [...] 11:26 AM - Comanage with Dr Mccollum; [facility] POD #1 Aleksandar WILSON MD Normal [facility] FREE T3on 10-30-2022 FREE T3 2.77 pg/mlL Normal 2.18-3.98 [facility] Comment on above: Performed By: #### F T3, TSH, BNP, T4 #### [facility] [address] [place] [address] Dr. Rich Pham HISTORY PHYSICALon 3 HISTORY PHYSICAL HNO ID: [id number] Author: Apple Gomez APRN.MORTEZA Service: ? Author Type: Nurse Practitioner Type: [...] ACTIVE PROBLEM LIST Smoking Addiction Atherosclerosis of [place] Coronary Artery of [place] Heart Without Angina Pectoris Mild Left Ventricular Systolic Dysfunction Primary Hypertension Coronary Artery Disease Involving Coronary Bypass Graft of [place] Heart With Angina Pectoris (Hcc) Atelectasis Hypervolemia [...] OF URETHRAL STRICT HEART CATHETERIZATION 2004 at [facility] KIDNEY STONE SURGERY HX [...] fevers. Neuro: No history of TIA's, stroke, [employer] tumor, impaired sensorium, (more content not included)... Normal [facility] T4on 10-30-2022 T4 [Mass/Vol] 3.40 ug/dL Critically low 4.80-13.90 [facility] Comment on above: Performed By: #### F T3, TSH, BNP, T4 #### [facility] [address] [address] [address] Rich Pham TSHon 10-30-2022 TSH 2.102 uIU/mL Normal 0.358-3.740 [facility] Comment on above: Performed By: #### F T3, TSH, BNP, T4 #### [facility] [address] [place], [place] [id number] Dr. Rich Pham CNPNon 10-18-2022 CNPN Telephone ([place]) DAREK MEJÍA ([id number]) 1950 F Date Time Provider Department 10/18/[id number] During your visit today, we recorded the [...] LPN October 18, 2022 1:18 PM Rayna Martin [...] Intolerance Date Reviewed: 08/15/2022 Reviewed by: Jean-Claude Miles, OD - Fully Assessed Reason for Visit: [...] Resolved Smoking addiction [F17.200] 06/22/2015 Atherosclerosis of [place] coronary artery of na*06/22/2015 Mild left ventricular [...] Status:Closed by HAVEN MORENO on 10/18/22 Normal [facility] FREE T3on 08-30-2022 FREE T3 1.95 pg/mlL Critically low 2.18-3.[address] [facility] Comment on above: Performed By: #### F T3, TSH, BNP, T4 #### [facility] [address] [place] [address] Dr. Rich Pham T4on 08-30-2022 T4 [Mass/Vol] 8.00 ug/dL Normal 4.80-13.90 [facility] Comment on above: Performed By: #### F T3, TSH, BNP, T4 #### [facility] [address], [place] [address] Dr. Rich Pham TSHon 08-30-2022 TSH 3.033 uIU/mL Normal 0.358-3.740 [facility] Comment on above: Performed By: #### F T3, TSH, BNP, T4 #### [facility] [address], [place] [address] Dr. Rich Pham ECHOCARDIO M/2D COMPLETEon 1 10-17-2021 ECHOCARDIO M/2D COMPLETE Patient: DAREK MEJÍA Exam Date: 08/16/2022 : 1950 Gender:F Ordering : [place] Admission #: [id number] Family : DR KAYLEIGH GAY . Order #: [id number] CLICK HERE TO VIEW EXAM ECHOCARDIOGRAM REPORT [...] M.D. on 08/18/2022 at 16:30 Normal [facility] BNPon 07-24-2022 Natriuretic peptide B (Bld) [Mass/Vol] 1535.0 pg/mL Critically high <=900.0 [facility] Comment on above: Performed By: #### F T3, TSH, BNP, T4 #### [facility] [address] [place] [address] Dr. Rich Pham FREE T3on 07-24-2022 FREE T3 1.90 pg/mlL Critically low 2.18-3.[address] [facility] Comment on above: Performed By: #### F T3, TSH, BNP, T4 #### [facility] [address] [place] [address] Dr. Rich Pham T4on 07-24-2022 T4 [Mass/Vol] 9.10 ug/dL Normal 4.80-13.90 [facility] Comment on above: Performed By: #### F T3, TSH, BNP, T4 #### [facility] [address] [place] [address] Dr. Rich Pham TSHon 07-24-2022 TSH 1.057 uIU/mL Normal 0.358-3.740 [facility] Comment on above: Performed By: #### F T3, TSH, BNP, T4 #### [facility] [address] [place] [address] Dr. Rich Pham INSULINon 06-20-2022 Insulin 7.0 uIU/mL Normal 2.6-24.9 [facility] Comment on above: Performed By: #### F T3, TSH, BNP, T4 #### [facility] [address] [place] [address] Dr. Rcih Pham BNPon 06-19-2022 Natriuretic peptide B (Bld) [Mass/Vol] 962.0 pg/mL Critically high <=900.0 [facility] Comment on above: Performed By: #### F T3, TSH, BNP, T4 #### [facility] [address] [place] [address] Dr. Rich Pham CBC AUTO DIFFon 06-19-2022 BASO # 0.1 103/ul Normal 0.0-0.1 [facility] Comment on above: Performed By: #### F T3, TSH, BNP, T4 #### [facility] [address] [place] [address] Dr. Rich Pham Basophils/100 WBC (Bld) 1.3 % Normal 0.2-2.0 [facility] Comment on above: Performed By: #### F T3, TSH, BNP, T4 #### [facility] [address] [place] [address] Dr. Rich Pham EO # 0.1 103/ul Normal 0.0-0.7 [facility] Comment on above: Performed By: #### F T3, TSH, BNP, T4 #### [facility] [address] [place] [address] Dr. Rich Pham Eosinophils/100 WBC (Bld) 1.9 % Normal 0.9-7.0 [facility] Comment on above: Performed By: #### F T3, TSH, BNP, T4 #### [facility] [address] [place] [address] Dr. Rich Pham Erythrocyte distribution width (RBC) [Ratio] 13.7 % Normal 11.0-15.0 [facility] Comment on above: Performed By: #### F T3, TSH, BNP, T4 #### [facility] [address] [place] [address] Dr. Rich Pham Hematocrit (Bld) [Volume fraction] 39.5 % Normal 36.0-48.0 [facility] Comment on above: Performed By: #### F T3, TSH, BNP, T4 #### [facility] [address] [place] [address] Dr. Rich Pham Hemoglobin (Bld) [Mass/Vol] 12.7 g/dL Normal 12.0-16.0 [facility] Comment on above: Performed By: #### F T3, TSH, BNP, T4 #### [facility] [address] [place] [address] Dr. Rich Pham IG # 0.03 10e3/ul Normal 0.00-0.03 [facility] Comment on above: Performed By: #### F T3, TSH, BNP, T4 #### [facility] [address] [place] [address] Dr. Rich Pham IG % 0.4 % Normal 0.0-0.5 [facility] Comment on above: Performed By: #### F T3, TSH, BNP, T4 #### [facility] [address] [place] [address] Dr. Rich Pham LYMPH # 2.5 103/ul Normal 1.2-3.8 [facility] Comment on above: Performed By: #### F T3, TSH, BNP, T4 #### [facility] [address] [place] [address] Dr. Rich Pham Lymphocytes/100 WBC (Bld) 32.8 % Normal 20.5-60.0 [facility] Comment on above: Performed By: #### F T3, TSH, BNP, T4 #### [facility] [address] [place] [address] Dr. Rich Pham MANUAL DIFF REQ NO Normal [facility] Comment on above: Performed By: #### F T3, TSH, BNP, T4 #### [facility] [address] [place] [address] Dr. Rich Pham MCH (RBC) [Entitic mass] 28.5 pg Normal 26.7-34.0 [facility] Comment on above: Performed By: #### F T3, TSH, BNP, T4 #### [facility] [address] [place] [address] Dr. Rich Pham MCHC (RBC) [Mass/Vol] 32.2 g/dL Normal 29.9-35.2 [facility] Comment on above: Performed By: #### F T3, TSH, BNP, T4 #### [facility] [address] [place] [address] Dr. Rich Pham MCV (RBC) [Entitic vol] 88.6 fL Normal 81.0-99.0 [facility] Comment on above: Performed By: #### F T3, TSH, BNP, T4 #### [facility] [address] [place] [address] Dr. Rich Pham MONO # 0.6 103/ul Normal 0.3-0.8 [facility] Comment on above: Performed By: #### F T3, TSH, BNP, T4 #### [facility] [address] [place] [address] Dr. Rich Pham Monocytes/100 WBC (Bld) 7.6 % Normal 1.7-12.0 [facility] Comment on above: Performed By: #### F T3, TSH, BNP, T4 #### [facility] [address] [place] [address] Dr. Rich Pham NEUT # 4.2 103/ul Normal 1.4-6.5 [facility] Comment on above: Performed By: #### F T3, TSH, BNP, T4 #### [facility] [address] [place] [address] Dr. Rich Pham Neutrophils/100 WBC (Bld) 56.0 % Normal 43.0-75.0 [facility] Comment on above: Performed By: #### F T3, TSH, BNP, T4 #### [facility] [address] [place] [address] Dr. Rich Pham Platelet mean volume (Bld) [Entitic vol] 10.4 fL Normal 9.5-13.5 [facility] Comment on above: Performed By: #### F T3, TSH, BNP, T4 #### [facility] [address] [place] [address] Dr. Rich Pham PLT 253 103/ul Normal 150-450 [facility] Comment on above: Performed By: #### F T3, TSH, BNP, T4 #### [facility] [address], [place] [address] Dr. Rich Pham RBC 4.46 106/ul Normal 4.20-5.40 [facility] Comment on above: Performed By: #### F T3, TSH, BNP, T4 #### [facility] [address], [place] [address] Dr. Rich Pham WBC 7.5 103/ul Normal 4.0-11.0 [facility] Comment on above: Performed By: #### F T3, TSH, BNP, T4 #### [facility] [address], [place] [address] LUNG CANCER SCREENINGon 1 CT LUNG CANCER SCREENING EXAMINATION: CT LUNG [...] VASU EVANS Date: 2022-06-19 21:05 Normal [facility] FREE THYROXINE INDEX T7on FTI 2.24 Normal 1.30-4.50 [facility] Comment on above: Performed By: #### F T3, TSH, BNP, T4 #### [facility] [address] [address] [address] Rich Pham T3U 33.0 % Normal 30.0-39.0 [facility] Comment on above: Performed By: #### F T3, TSH, BNP, T4 #### [facility] [address] [address] [address] Rich Pham T4 [Mass/Vol] 6.80 ug/dL Normal 4.80-13.90 [facility] Comment on above: Performed By: #### F T3, TSH, BNP, T4 #### [facility] [address] [address] [address] Rich Pham GLYCOHEMOGLOBIN A1Con 2021 ADA RECOMMENDATION SEE BELOW Normal [facility] [place] Comment on above: Result Comment: ADA RECOMMENDED LIMIT 4.0 - 6.0 ADA THERAPEUTIC TARGET < 7.0 ACTION SUGGESTED > 7.0 Performed By: #### F T3, TSH, BNP, T4 #### [facility] [address] [address] [address] Rich Pham Glucose [Mass/Vol] 117 mg/dL Normal [facility] [place] Comment on above: Performed By: #### F T3, TSH, BNP, T4 #### [facility] [address] [address] [address] Rich Pham HbA1c (Bld) [Mass fraction] 5.7 % Normal 4.5-6.2 [facility] Comment on above: Performed By: #### F T3, TSH, BNP, T4 #### [facility] [address] [address] [address] Rich Pham IRONon 06-19-2022 Iron [Mass/Vol] 50.0 ug/dL Normal 50.0-170.0 [facility] Comment on above: Performed By: #### I IAM HARO #### [facility] [address] [address] [address] Rich Pham LIPID PROFILEon 06-19-2022 CHOL-HDL RATIO NORM SEE BELOW Normal [facility] Comment on above: Result Comment: 3.3 - 4.4 LOW RISK 4.4 - 7.1 AVERAGE RISK 7.1 - 11.0 MODERATE RISK >11.0 HIGH RISK Performed By: #### F T3, TSH, BNP, T4 #### [facility] [address] [address] [address] Rich Pham Cholesterol [Mass/Vol] 142 mg/dL Normal <=200 [facility] Comment on above: Performed By: #### F T3, TSH, BNP, T4 #### [facility] [address] [address] [address] Rich Pham Cholesterol in HDL [Mass/Vol] 52 mg/dL Normal 40-60 [facility] Comment on above: Performed By: #### F T3, TSH, BNP, T4 #### [facility] [address] [address] [address] Rich Pham Cholesterol in LDL [Mass/Vol] 78.8 mg/dL Normal [facility] Comment on above: Performed By: #### F T3, TSH, BNP, T4 #### [facility] [address] [address] [address] Rich Pham Cholesterol.total/Ch olesterol in HDL [Mass ratio] 2.7 {ratio} Normal [facility] Comment on above: Performed By: #### F T3, TSH, BNP, T4 #### [facility] [address] [address] [address] Rich Pham HDL NORMAL > or = 60 mg/dl - LO W CARDIOVASCULAR RISK <40 mg/dl - HIGH CARDIOVASCULAR RISK Normal [facility] Comment on above: Performed By: #### F T3, TSH, BNP, T4 #### [facility] [address] [address] [address] Rich Pham LDL CALC NORMAL SEE BELOW Normal [facility] Comment on above: Result Comment: <100 mg/dl OPTIMAL 100 - 129 mg/dl NEAR OR ABOVE OPTIMAL 130 - 159 mg/dl BORDERLINE HIGH 160 - 189 mg/dl HIGH >190 mg/dl VERY HIGH Performed By: #### F T3, TSH, BNP, T4 #### [facility] [address] [address] [address] Rich Pham Triglyceride [Mass/Vol] 56 mg/dL Normal <=150 [facility] Comment on above: Performed By: #### F T3, TSH, BNP, T4 #### [facility] [address] [address] [address] Rich Pham VLDL CALC 11.2 mg/dL Normal [facility] Comment on above: Performed By: #### F T3, TSH, BNP, T4 #### [facility] [address] [address] [address] Rich Pham PROF 14(COMP METB)on 022 Albumin [Mass/Vol] 3.5 g/dL Normal 3.4-5.0 [facility] Comment on above: Performed By: #### F T3, TSH, BNP, T4 #### [facility] [address] [place] [address] Dr. Rich Pham Albumin/Globulin [Mass ratio] 0.9 {ratio} Normal [facility] Comment on above: Performed By: #### F T3, TSH, BNP, T4 #### [facility] [address] [address] [address] Rich Pham ALP [Catalytic activity/Vol] 95 U/L Normal 46-116 [facility] Comment on above: Performed By: #### F T3, TSH, BNP, T4 #### [facility] [address] [place] [address] Dr. Rich Pham ALT [Catalytic activity/Vol] 22 U/L Normal 14-59 [facility] Comment on above: Performed By: #### F T3, TSH, BNP, T4 #### [facility] [address] [address] [address] Rich Pham Anion gap [Moles/Vol] 11.3 mmol/L Normal [facility] Comment on above: Performed By: #### F T3, TSH, BNP, T4 #### [facility] [address] [address] [address] Rich Pham AST [Catalytic activity/Vol] 21 U/L Normal 15-37 [facility] Comment on above: Performed By: #### F T3, TSH, BNP, T4 #### [facility] [address] [place] [address] Dr. Rich Pham Bilirubin [Mass/Vol] 0.4 mg/dL Normal 0.2-1.0 [facility] Comment on above: Performed By: #### F T3, TSH, BNP, T4 #### [facility] [address] [place] [address] Dr. Rich Pham Calcium [Mass/Vol] 10.4 mg/dL Critically high 8.5-10.1 [facility] Comment on above: Performed By: #### F T3, TSH, BNP, T4 #### [facility] [address] [place] [address] Dr. Rich Pham Chloride [Moles/Vol] 105 mmol/L Normal 98-107 [facility] Comment on above: Performed By: #### F T3, TSH, BNP, T4 #### [facility] [address] [place] [address] Dr. Rich Pham CO2 [Moles/Vol] 27.8 mmol/L Normal 21.0-32.0 [facility] Comment on above: Performed By: #### F T3, TSH, BNP, T4 #### [facility] [address] [place] [address] Dr. Rich Pham Creatinine [Mass/Vol] 0.94 mg/dL Normal 0.55-1.02 [facility] Comment on above: Performed By: #### F T3, TSH, BNP, T4 #### [facility] [address] [place] [address] Dr. Rich Pham EGFR-AF VINCENTIAN >60 Normal >=60 [facility] Comment on above: Performed By: #### F T3, TSH, BNP, T4 #### [facility] [address] [place] [address] Dr. Rich Pham EGFR-NON AF VINCENTIAN 58 mL/min/1.73m2 Critically low >=60 [facility] Comment on above: Performed By: #### F T3, TSH, BNP, T4 #### [facility] [address] [place] [address] Dr. Rich Pham Globulin (S) [Mass/Vol] 3.9 g/dL Normal [facility] Comment on above: Performed By: #### F T3, TSH, BNP, T4 #### [facility] [address] [address] [address] Rich Pham Glucose [Mass/Vol] 94 mg/dL Normal 74-106 [facility] [place] Comment on above: Performed By: #### F T3, TSH, BNP, T4 #### [facility] [address] [place] [address] Dr. Rich Pham Potassium [Moles/Vol] 4.1 mmol/L Normal 3.5-5.1 [facility] Comment on above: Performed By: #### F T3, TSH, BNP, T4 #### [facility] [address] [place] [address] Dr. Rich Pham Protein [Mass/Vol] 7.4 g/dL Normal 6.4-8.2 [facility] [place] Comment on above: Performed By: #### F T3, TSH, BNP, T4 #### [facility] [address] [place] [address] Dr. Rich Pham Sodium [Moles/Vol] 140 mmol/L Normal 136-145 [facility] [place] Comment on above: Performed By: #### F T3, TSH, BNP, T4 #### [facility] [address] [place] [address] Dr. Rich Pham Urea nitrogen [Mass/Vol] 15.0 mg/dL Normal 7.0-18.0 [facility] Comment on above: Performed By: #### F T3, TSH, BNP, T4 #### [facility] [address] [place] [address] Dr. Rich Pham Urea nitrogen/Creatinine [Mass ratio] 16.0 mg/mg Normal [facility] Comment on above: Performed By: #### F T3, TSH, BNP, T4 #### [facility] [address] [place] [address] Dr. Rich Pham TSHon 06-19-2022 TSH 6.083 uIU/mL Critically high 0.358-3.740 [facility] Comment on above: Performed By: #### F T3, TSH, BNP, T4 #### [facility] [address] [place] [address] Dr. Rich Pham VITAMIN D 25 OHon 06-19-2022 VIT D 25-OH 41.3 ng/mL Normal [facility] Comment on above: Performed By: #### F T3, TSH, BNP, T4 #### [facility] [address] [place] [address] Dr. Rich Pham VIT D RANGES SEE BELOW Normal [facility] Comment on above: Result Comment: <20 ng/mL Vit D deficient 20 - <30 ng/mL Vit D insufficient 30 - 100 ng/mL Vit D sufficient >100 ng/mL Potential Toxicity Performed By: #### F T3, TSH, BNP, T4 #### [facility] [address] [place] [address] Dr. Rich Pham PROF CHEM 8 (BAS METB)on Anion gap [Moles/Vol] 11.9 mmol/L Normal [facility] Comment on above: Performed By: #### F T3, TSH, BNP, T4 #### [facility] [address] [place] [address] Dr. Rich Pham Calcium [Mass/Vol] 9.9 mg/dL Normal 8.5-10.1 [facility] Comment on above: Performed By: #### F T3, TSH, BNP, T4 #### [facility] [address] [place] [address] Dr. Rich Pham Chloride [Moles/Vol] 101 mmol/L Normal 98-107 [facility] Comment on above: Performed By: #### F T3, TSH, BNP, T4 #### [facility] [address] [place] [address] Dr. Rich Pham CO2 [Moles/Vol] 30.0 mmol/L Normal 21.0-32.0 [facility] Comment on above: Performed By: #### F T3, TSH, BNP, T4 #### [facility] [address] [place] [address] Dr. Rich Pham Creatinine [Mass/Vol] 1.10 mg/dL Critically high 0.55-1.02 [facility] Comment on above: Performed By: #### F T3, TSH, BNP, T4 #### [facility] [address] [address] [address] Rich Pham EGFR-AF VINCENTIAN 59 mL/min/1.73m2 Critically low >=60 [facility] Comment on above: Performed By: #### F T3, TSH, BNP, T4 #### [facility] [address] [address] [address] Rich Pham EGFR-NON AF VINCENTIAN 49 mL/min/1.73m2 Critically low >=60 [facility] Comment on above: Performed By: #### F T3, TSH, BNP, T4 #### [facility] [address] [place] [address] Dr. Rich Pham Glucose [Mass/Vol] 115 mg/dL Critically high 74-106 T [facility] Comment on above: Performed By: #### F T3, TSH, BNP, T4 #### [facility] [address] [address] [address] Rich Pham Potassium [Moles/Vol] 3.9 mmol/L Normal 3.5-5.1 [facility] Comment on above: Performed By: #### F T3, TSH, BNP, T4 #### [facility] [address] [place] [address] Dr. Rich Pham Sodium [Moles/Vol] 139 mmol/L Normal 136-145 [facility] Comment on above: Performed By: #### F T3, TSH, BNP, T4 #### [facility] [address] [address] [address] Rich Pham Urea nitrogen [Mass/Vol] 15.0 mg/dL Normal 7.0-18.0 [facility] Comment on above: Performed By: #### F T3, TSH, BNP, T4 #### [facility] [address] [place] [address] Dr. Rich Pham Urea nitrogen/Creatinine [Mass ratio] 13.6 mg/mg Normal [facility] Comment on above: Performed By: #### F T3, TSH, BNP, T4 #### [facility] [address] [place] [address] Dr. Rich Pham FLUORO FOR SURGICAL PROCEDUR [...] Juvenal Cagle MD 04/10/19 Final result Normal [facility] Surgical Specimenon 04-10-20 19 Surgical Specimen [facility] [address] [place] [address] FINAL SURGICAL PATHOLOGY REPORT Patient Name: DAREK MEJÍA Accession No: [id number] Age Sex: 1950 Location: [facility] Account No: [id number] Collected: 04/10/2019 Med Rec No: [id number] Received: 04/10/2019 Attend Phys: ESTEBAN LÓPEZ Completed: 04/15/2019 Perform Phys: ESTEBAN LÓPEZ FINAL DIAGNOSIS: DISK TISSUE- DISK CARTILAGE WITH MARKED DEGENERATIVE CHANGES. FRAGMENTS OF BONE, MINUTE AREA SHOWING NORMAL CELLULAR BONE MARROW INCLUDING MEGAKARYOCYTES. SYNOVIAL TISSUE WITH REACTIVE CHANGES. SIVES/DAVID CLINICAL INFORMATION: Disk herniation, radiculopathy. SPECIMEN: Disc GROSS DESCRIPTION: The specimen container is labeled with the patient's name and designated spine . In formalin are multiple irregular rubbery and firm fragments of goss-red tissue measuring in aggregate 3 x 2.5 x 0.4 cm. The majority of tissue is wrapped and submitted in one cassette after decalcification. JAZZY/CHRISTY CPT: 91468 X1 14777 X1 MICHELLE PEREZ M.D. 04/15/2019 Electronically signed out by Page 1 of [address] [facility] Comment on above: Performed By: #### S UR #### [place] [address] Type and Screen Capture 3 sc rn cellon 04-10-2019 Type and Screen Capture 3 scrn cell PATIENT: MICAELA OSWALD LOC: [facility] NON BILL# : [id number] : 1950 SEX: F ORDERED BY: DAVIN MERCEDES ORDERED : 04/10/2019 06:22 COLLECTED: 04/10/2019 07:21 ORDER : [id number] RECEIVED : 04/10/2019 07:21 --------- TEST NAME RESULT UNITS RANGES ABN FL ST ABOR Capture A POS F Antibody 3 Cell Scrn Captu NEG F -------- Normal [facility] Comment on above: Performed By: #### T S3C #### [place] [id number] CARDIAC STRESS TESTon 2018 [place] [address] CARDIAC STRESS TEST PATIENT NAME: DAREK MEJÍA : 1950 MED REC NO: [id number] ROOM: ACCOUNT NO: [id number] ADMIT DATE: 03/31/2019 PROVIDER: Marli Cox DO [...] function. MARLI COX DO #14:19:36 [id number] Doc#: [id number] CC: Normal [facility] Coding Summary.on 01-30-2019 Coding Summary. CODING DATE: FINAL [facility] STATUS: Home (Routine DC) PAYOR: Medicare ADMIT DX: REASON FOR VISIT DX: M54.2 Cervicalgia M25.512 Pain in left shoulder FINAL DX: PRINCIPAL: M50.30 Other cervical disc degeneration, unspecified cervical region SECONDARY: M50.20 Other cervical disc displacement, unspecified cervical region M54.12 Radiculopathy, cervical region M48.02 Spinal stenosis, cervical region Z79.899 Other longterm (current) drug therapy PROCEDURES DOCTOR NAME DATE NOTE: The code number assigned matches the documented diagnosis and / or procedure in the patient's chart. However, the narrative phrase printed from the coding software may appear abbreviated, or result in slightly different terminology. Coded By: Linh Devlin CphT Date Saved: 01/30/2019 10:45 am [facility] Coding Summary.on 01-29-2019 Coding Summary. CODING DATE: FINAL [facility] STATUS: Home (Routine DC) PAYOR: Medicare APC DESCRIPTION 5442 Level 2 Nerve Injections ADMIT DX: REASON FOR VISIT DX: M54.12 Radiculopathy, cervical region FINAL DX: PRINCIPAL: M54.12 Radiculopathy, cervical region SECONDARY: F17.210 Nicotine dependence, cigarettes, uncomplicated Z79.82 correction (current) use of aspirin Z95.1 Presence of aortocoronary bypass graft PYMT PROC APC STAT DESCRIPTION DOCTOR NAME DATE NOTE: The code number assigned matches the documented diagnosis and / or procedure in the patient's chart. However, the narrative phrase printed from the coding software may appear abbreviated, or result in slightly different terminology. Coded By: Maria Teresa Velasquez Date Saved: 01/29/2019 08:16 am Normal [facility] Main OR Intraoperative Recor don 01-28-2019 Main OR Intraoperative Record IntraOp Document Type FTPM Summary Primary Physician: Cain Rowley MD Finalized Date/Time: 01/28/19 07:58:26 Pt. Name: DAREK MEJÍA /Sex: 1950 Female Med Rec #: [id number] Physician: Cain Rowley MD Financial #: [id number] Pt. Type: P Room/Bed: / Admit/Disch: 01/28/19 06:52:45 - Institution: Case Times FTPM Entry 1 Patient Times In Room 01/28/19 07:53:00 Out Room 01/28/19 08:00:00 Procedure Times Start 01/28/19 07:56:00 Stop 01/28/19 07:58:00 Anesthesia Times Start 01/28/19 07:53:00 Stop 01/28/19 08:00:00 Last Modified By: Nettie Guthrie RN 01/28/19 07:58:17 Case Attendance FTPM Entry 1 Entry 2 Entry 3 Case Attendee Rik Hatfield Jr., DO, MD, Joshua D Ward RN, Sonja C Role Performed Anesthesiologist of Surgeon - Primary Evaluation Engineer - Primary Record Time In 01/28/19 07:53:00 [...] Tamanna Sun RN, Aaron Donohue Role Performed Evaluation Engineer - Primary Scrub - Other Packaging Line Attendant Time In 01/28/19 07:53:00 01/28/19 07:53:00 01/28/19 [...] Out Rik Hatfield Jr., DO, Given Participants [place] OLIVAS, Nettie Self, Amrik WADE, Marilee Gonzales Bryce Time Out [...] C6-7 MAUREEN Primary Procedure Yes Primary Surgeon Cain Rowley MD Start 01/28/19 07:56:00 Stop 01/28/19 07:58:00 Anesthesia [...] and tissue Entry 1 Skin Integrity Intact, [place], Warm, and Skin Abnormality No Dry Outcomes [...] Points Checked Yes By Nettie Guthrie RN, Fennig Jr. DO, Rik Outcomes Met? Yes Last Modified [...] By: Nettie Guthrie RN 01/28/19 07:58 Normal [facility] Main OR Preoperative Recordo n 01-28-2019 Main OR Preoperative Record Holding Area Document Type FTPM Summary Primary Physician: Cain Rowley MD Finalized Date/Time: 01/28/19 07:17:16 Pt. Name: DAREK MEJÍA /Sex: 1950 Female Med Rec #: [id number] Physician: Cain Rowley MD Financial #: [id number] Pt. Type: P Room/Bed: / Admit/Disch: 01/28/19 [...] 07:14 Melina Harper RN 01/28/19 07:17 Normal [facility] Operative Reporton 9 Operative Report Patient: DAREK [...] 96 mmHg SpO2 94 % . Normal [facility] Comment on above: Result Comment: [...] January 17, 2019 10:38 EDT Encounter info: [id number], [facility], Pain Management, 01/17/2019 - 01/17/2019 * Final [...] tid., # 180 tab(s), Refills(s) 0, Pharmacy: [facility] Documented Medications Documented NIFEdipine 30 mg [...] list: All Problems Smoker / SNOMED CT 996196494 / Confirmed Added secondary to documentation in [...] of motion. Normal strength. Integumentary: Warm, Dry, [place]. Injection site well-healed Neurologic: Alert, Oriented. Psychiatric: [...] Electronically Co-Signed By: Amrik WADE, Cain Perla [facility] Comment on above: Result Comment: Elec tronically Signed By: Marah Ferrell PA-C\.br\Date and Time Signed: 01/24/19 15:55 EDT Progress Note-Physicianon Progress Note-Physician Patient: DAREK MEJÍA Age: 68 years Sex: Female : 1950 Associated Diagnoses: None Author: Mariaelena HUBBARD Marah Subjective Chief complaint 01/17/2019 10:07 EDT left [...] tid., # 180 tab(s), Refills(s) 0, Pharmacy: [facility] Documented Medications Documented NIFEdipine 30 mg [...] list: All Problems Smoker / SNOMED CT 491584697 / Confirmed Added secondary to documentation in [...] of motion. Normal strength. Integumentary: Warm, Dry, [place]. Injection site well-healed Neurologic: Alert, Oriented. Psychiatric: [...] clinic with any interval questions or concerns. [facility] Comment on above: Result Comment: ERRO R - WRONG FOLDER Electronically Signed By: Marah Ferrell PA-C\.br\Date and Time Signed: 01/17/19 10:38 EDT\.br\Electronically Co-Signed By: Cain Rowley MD Coding Summary.on 12-31-2018 Coding Summary. CODING DATE: 019 FINAL [facility] STATUS: Home (Routine DC) PAYOR: Medicare [...] Teresa Velasquez Date Saved: 12/31/2018 02:30 pm [facility] Progress Note-Physicianon Progress Note-Physician Patient: DAREK MEJÍA [...] day(s), # 21 tab(s), Refills(s) 0, Pharmacy: [facility] gabapentin 300 mg Cap: See Instructions, increase dose as directed to 600 mg po tid., # 180 tab(s), Refills(s) 0, Pharmacy: [facility] Documented Medications Documented NIFEdipine 30 mg [...] list: All Problems Smoker / SNOMED CT 240412428 / Confirmed Added secondary to documentation in Social History. Histories Past Medical History: No active or resolved past medical history items have been selected or recorded., SMOKES TOBACCO Family History: No family history items have been selected or recorded. Procedure history: Mastectomy (5292811801). Hysterectomy (781760000). Cholecystectomy (82011861). CABG x 5 - Coronary artery bypass grafts x 5 (321591468). Social History Social & Psychosocial Habits Alcohol [...] and perfusion.. Gastrointestinal: Benign, nontender.. Integumentary: Warm, [place]. Neurologic: PER PAIN CLINIC ASSESSMENT. Plan [place] [employer] Anesthesiologists (ASA) physical status classification: Class III. Anesthetic Preoperative Plan Anesthesia: Monitored anesthesia care. Anesthetic plan, risks, benefits, and alternatives discussed with the patient and/or family. Patient verbalized understanding. Informed consent was given. Communication: face to face with Pt educated on the importance of smoking cessation. [facility] Comment on above: Result Comment: Elec tronically Signed By: Stevie Linares Jr, DO\.br\Date and Time Signed: 12/31/18 15:15 EDT Main OR Intraoperative Recor don 12-30-2018 Main OR Intraoperative Record IntraOp Document Type FTPM Summary Primary Physician: Cain Rowley MD Finalized Date/Time: 12/30/18 08:22:53 Pt. Name: AYLA MEJÍAANETTE Joby/Sex: 1950 Female Med Rec #: [id number] Physician: Cain Rowley MD Financial #: [id number] Pt. Type: P Room/Bed: / Admit/Disch: 12/30/18 07:22:06 - Institution: Case Times FTPM Entry 1 Patient Times In Room 12/30/18 08:15:00 Out Room 12/30/18 08:24:00 Procedure Times Start 12/30/18 08:18:00 Stop 12/30/18 08:22:00 Anesthesia Times Start 12/30/18 08:15:00 Stop 12/30/18 08:24:00 Last Modified By: Nettie Guthrie RN 12/30/18 08:22:45 Case Attendance FTPM Entry 1 Entry 2 Entry 3 Case Attendee Stevie Linares Jr, DO, MD, Joshua D Ward RN, Sonja C Role Performed Anesthesiologist of Surgeon - Primary Evaluation Engineer - Primary Record Time In 12/30/18 08:15:00 [...] Performed Scrub - Primary Scrub - Other Packaging Line Attendant Time In 12/30/18 08:15:00 12/30/18 08:15:00 12/30/18 08:15:00 Time Out 12/30/18 08:24:00 12/30/18 08:24:00 12/30/18 08:24:00 Procedure CERVICAL EPIDURAL CERVICAL EPIDURAL CERVICAL EPIDURAL STEROID INJECTION(.) STEROID INJECTION(.) STEROID INJECTION(.) Comments orientee Last Modified By: [place] RN, Nettie Guthrie RN, Nettie Guthrie RN, Nettie Self 12/30/18 08:22:46 12/30/18 08:22:46 12/30/18 08:22:46 Perioperative [...] Vijay Andre DO, Stevie Napier, Given Participants [place] OLIVAS, Nettie Self, Josh OLIVAS, Amrik Nolen MD, Cain Perla [...] C6/7 ELENA Primary Procedure Yes Primary Surgeon Cain Rowley MD Start 12/30/18 08:18:00 Stop 12/30/18 08:22:00 Anesthesia [...] and tissue Entry 1 Skin Integrity Intact, [place], Warm, and Skin Abnormality No Dry Outcomes [...] By: Nettie Guthrie RN 12/30/18 08:22 Normal [facility] Main OR Preoperative Recordo n 12-30-2018 Main OR Preoperative Record Holding Area Document Type FTPM Summary Primary Physician: Cain Rowley MD Finalized Date/Time: 12/30/18 07:39:27 Pt. Name: GMJOEDAREK/Sex: 1950 Female Med Rec #: [id number] Physician: Cain Rowley MD Financial #: [id number] Pt. Type: P Room/Bed: / Admit/Disch: 12/30/18 [...] By: Melina Harper RN 12/30/18 07:39 Normal [facility] Operative Reporton 9 Operative Report Patient: DAREK [...] 112 mmHg SpO2 98 % . Normal [facility] Comment on above: Result Comment: Elec tronically Signed By: Cain Rowley MD\.br\Date and Time Signed: 12/30/18 08:23 EDT Message - General Officeon 0 12-25-2018 Message - General Office From: James Eaton ([facility] To: Cain Rowley MD; Sent: 12/19/2018 14:37:15 EDT Subject: Rx Patient called and said that she had been prescribed Gabapentin per her last care plan. She said it makes her sleepy and weak. She asked if she would be able to take something different. From: Marah Ferrell PA-C To: [facility]; Sent: 12/20/2018 09:18:44 EDT Subject: RE: Rx DC GPN, we can try lyrica if insurance mitzi cover it. Or just proceed with injection only and see if that helps. Please let me know what she would like to try. From: Elysia Mcrae ([facility] [place] [facility] To: [facility]; Sent: 12/20/2018 10:01:06 EDT Subject: pt to call back. called patient, left a message requesting a return telephone. From: Elysia Mcrae ([facility] [place] [facility] To: Marah Ferrell PA-C; Sent: 12/20/2018 13:34:17 EDT Subject: RE: pt to call back. Patient called back and stated that she will d/c the gabapentin and will just wait for injection before trying the lyrica Received a request for prior authorization for the Gabapentin from [facility] From: Elva Moreno RN ([facility] [place] [facility] To: [facility] [place]; Sent: 12/23/2018 08:44:56 EDT Subject: Rx prior auth request Tried to call [facility] and they do not open until after 9 - will call to see if she picked this up (see notes below) and why we got this request. From: Elva Moreno RN ([facility] [place] [facility] To: Elva Moreno RN; Sent: 12/23/2018 10:51:16 EDT Subject: FW: Rx prior auth request Contacted [facility] and they confirm the patient filled this on the 17 of December - not sure why we got the request for Prior authoization, but since we will not be continuing this medication we will disregard the request. for PA. 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 [...] is reviewed. From: Marah Ferrell PA-C To: [facility]; Sent: 12/25/2018 11:05:18 EDT Subject: RE: Intractable pain injection scheduled Sunday12/30/18 I can send a medrol dose pack in if she would like to use until the injection From: Elva Moreno RN ([facility] [place] [facility] To: [facility]; Sent: 12/25/2018 11:11:14 EDT Subject: FW: Intractable pain injection scheduled Sunday12/30/18 Due Date/Time: 12/25/2018 13:00:00 EDT Left voice mail for patient to call the office From: Elva Moreno RN ([facility] [place]) To: Marah Ferrell PA-C; Sent: 12/25/2018 11:14:17 EDT Subject: Dose Pack On hold pending signature Order:methylPREDNISolon e (Medrol Dosepack 4 mg Tab) 1 packet(s) Oral As Directed as directed on package labeling Qty: 21 tab(s) Duration: 6 day(s) Refills: 0 Substitutions Allowed Route To Pharmacy - [facility] Patient returned call and states she will give it a try . Approved Order:methylPREDNISolon e (Medrol Dosepack 4 mg Tab) 1 packet(s) Oral As Directed as directed on package labeling Qty: 21 tab(s) Duration: 6 day(s) Refills: 0 Substitutions Allowed Route To Pharmacy - [facility] Signed by Marah Ferrell PA-C 12/25/18 11:27:00 From: Marah Ferrell PA-C To: [facility]; Sent: 12/25/2018 11:27:52 EDT Subject: RE: Dose Pack sent From: Jeevan LiuVerifierElysia Fitzgerald ([facility] [place] [place] [facility] To: [facility]; Sent: 12/25/2018 12:57:16 EDT Subject: RE: Dose Pack attempted to call patient, no answer and no voicemail From: Triny Woods ([facility] [place] [facility] To: [facility]; Sent: 12/25/2018 13:21:44 EDT Subject: RE: Dose Pack patient returned call I informed her prescription sent to pharmacy Normal [facility] Consultation Noteon 12-25-19 Consultation Note HOSPITAL REGULATIONS [...] to 600 mg three times per day. [place] [employer] Prescription Reporting System report was reviewed and is consistent with the previous medications prescribed. The patient will follow up two weeks after the injection to assess response and call the clinic with any questions or concerns. The patient agrees with plan of care. Cain Rowley M.D. lkr Dictated: 12/17/2018 #[id number] Typed: 12/19/2018 #[id number] cc: Angeles Aburto M.D. Timothy A Moore, MD [facility] Comment on above: Result Comment: Elec tronically Signed By: Cain Rowley MD\.br\Date and Time Signed: 12/24/18 13:15 EDT Message - General Officeon 0 12-23-2018 Message - General Office From: Sarah Laws To: [facility]; Sent: 12/17/2018 13:40:24 EDT Subject: Amrik-Medicare [employer]-ELENA-12/17/18 From: Thais Nieto ([facility] [place] [facility] To: [facility]; Sent: 12/23/2018 13:33:03 EDT Subject: 2nd call Arleen Submitted prior auth online through [employer]. Medicare [employer] approved auth #[id number] good 12/23/18 to 03/23/19. Called patient to schedule C6/7 MAUREEN no anesthesia Dx M54.12, patients number has been changed or disconnected called Ag on patients HIPAA no answer unable to leave a message. From: Thais Nieto ([facility] [place] To: [facility]; Sent: 12/23/2018 14:32:36 EDT Subject: RE: 2nd call Arleen Patient called back, scheduled procedure for 12/30/18, scheduled follow up for 01/17/19 at 10:10am. Normal [facility] Coding Summary.on 12-20-2018 Coding Summary. 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 However, the narrative phrase printed from the coding software may appear abbreviated, or result in slightly different terminology. Coded By: Linh Devlin CphT Date Saved: 12/20/2018 01:35 pm Normal [facility] Coding Summary.on 12-03-2018 Coding Summary. CODING DATE: [facility] STATUS: Home (Routine DC) PAYOR: Medicare ADMIT [...] CphT Date Saved: 12/03/2018 01:31 pm Normal [facility] Consultation Noteon 12-04-19 Consultation Note [...] bypass surgery in July 2015 at the [facility] and she does smoke. REVIEW OF [...] weeks after the injection. Stas Olvera MD s Dictated: 11/26/2018 #[id number] Typed: 12/03/2018 #[id number] cc: Kayleigh Gay M.D. Stas Olvera MD [facility] Comment on above: Result Comment: Elec tronically Signed By: Wade WADE, Stas Napier\.br\Date and Time Signed: 12/03/18 13:16 EDT History and Physicalon 12-11 HIM IP Note OR [facility] OPERATIVE REPORTon 8 OPERATIVE REPORT [address] [address] OPERATIVE REPORTPATIENT NAME: DAREK MEJÍA : 1950MED REC NO: [id number] ROOM:ACCOUNT NO: [id number] ADMIT DATE: 12/11/2017PROVIDER: Dustin McmahonDATE OF PROCEDURE: [...] infollowup on 12/12/2017.DUSTIN MCMAHOND: 12/11/2017 11:14:16 [id number]#: [id number] Doc#: [id number]: Normal [facility] Op Noteon 12-11-2017 HIM IP Note OR [facility] History and Physicalon 10-23 HIM IP Note OR [facility] OPERATIVE REPORTon 8 OPERATIVE REPORT [address] [address] OPERATIVE REPORTPATIENT NAME: DAREK MEJÍA : [birth year]MED REC NO: [id number] ROOM:ACCOUNT NO: [id number] ADMIT DATE: 10/23/2017PROVIDER: Dustin McmahonDATE OF PROCEDURE: [...] 4 days postoperatively.DUSTIN Ren DABBSD: 10/23/2017 11:29:16 [id number]_IJob#: [id number] Doc#: [id number]: Normal [facility] Op Noteon 10-23-2017 HIM IP Note OR [facility] Progress Noteon 10-23-2017 HIM IP Note OR [facility] HIM IP Note OR [facility] No Panel Information [facility] Encounters Encounter Date Encounter Type Care Provider Facility Start: 10-23-2023 Orders Only Not In System Ref Prov [facility] Start: 10-11-2023 Orders Only Naomi Bautista RMA [facility] Comment on above: 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; Family history of colon cancer Start: 08-01-2023 End: 08-01-2023 ambulatory [facility] Start: 07-21-2023 Evaluation and management of inpatient [facility] Start: 07-20-2023 Evaluation and management of inpatient [facility] Start: 07-20-2023 Evaluation and management of inpatient [facility] Start: 07-20-2023 Evaluation and management of inpatient [facility] Start: 07-20-2023 Evaluation and management of inpatient [facility] Start: 07-19-2023 End: 07-22-2023 Evaluation and management of inpatient [facility] Start: 07-19-2023 End: 07-19-2023 ambulatory [facility] Start: 04-23-2023 End: 04-23-2023 [facility] Start: 01-31-2023 End: 01-31-2023 ambulatory [facility] Start: 12-21-2022 End: 12-21-2022 ambulatory [facility] Start: 11-30-2022 End: 12-01-[address] KAYLEIGH GAY . 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 Start: 03-31-2019 End: 04-03-2019 Patient encounter procedure OLGA PARISI [facility] Start: 12-11-2017 End: 12-11-2017 Ambulatory DUSTIN Ren [facility] Start: 10-23-2017 End: 10-23-2017 Ambulatory DUSTIN Ren SALOME [facility] Start: 09-28-2017 End: 09-29-2017 Ambulatory DEFAULT PHYSICIAN Facility:[facility] Procedures Date Procedure Procedure Detail Performing Clinician Start: 10-10-2023 EGD / COLONOSCOPY Ruthie Oneill EDITORIAL MANAGER-BECK TENDER Work Phone: Start: 10-10-2023 Level i surg patholo gy gross examination only Not In System Ref Prov Start: 10-30-2022 IOL BIOMETRY W/ IOL CALC OS (LEFT EYE) Aleksandar Wilson MD Work Phone: Start: 08-15-2022 Post-cataract laser surgery Aleksandar Wilson MD Work Phone: Start: 01-10-2020 History of coronary artery bypass grafting Hx of CABG Aleksandar Castillo MD Work Phone: Start: 04-10-2019 INCENTIVE SPIROMETRY RT OLGA CHO Start: 04-10-2019 Level iv surg pathol ogy gross&microscopic exam OLGA PARISI Start: 04-10-2019 INCENTIVE SPIROMETRY RT OLGA CHO Start: 04-10-2019 DISCHARGE PATIENT ELIIDA PARISI Start: 04-10-2019 FLUORO FOR SURGICAL PROCEDURES [...] CREATININE W/GFR POI NT OF CARE DUSTIN SALOME Start: 12-11-2017 LACTIC ACID,POINT OF CARE DUSTIN [...] MCMAHON Start: 10-23-2017 Continuous pulse oximetry DUSTIN PINEDOBS Start: 10-23-2017 INITIATE OXYGEN THER APY PROTOCOL DUSTIN MCMAHON Start: 10-23-2017 BEDREST DUSTIN RICH BBS Start: 10-23-2017 ENCOURAGE DEEP BREAT LEANDRO AND COUGHING DUSTIN MCMAHON Start: 10-23-2017 NOTIFY PHYSICIAN (SPECIFY) DUSTIN MCMAHON Start: 10-23-2017 NURSING COMMUNICATION Clair MCMAHON Start: 10-23-2017 VITAL SIGNS DUSTIN RICH BBS Start: 10-23-2017 POCT POTASSIUM DUSTIN SALOME Start: 10-23-2017 POTASSIUM (POC) DUSTIN MCMAHON Start: 10-23-2017 INITIATE OXYGEN THER APY PROTOCOL DUSTIN MCMAHON Start: 10-23-2017 NOTIFY PHYSICIAN (SPECIFY) DUSTIN MCMAHON Start: 10-23-2017 VITAL SIGNS DUSTIN CHRISTOPHER Plan of Treatment Date Care Activity Detail Author Start: 01-08-2025 LIPID SCREEN LIPID SCREEN [facility] Start: 08-15-2024 Adult BMI Screening Adult BMI Screening [facility] Start: 08-15-2024 Tobacco Screening Tobacco Screening [facility] Start: 05-04-2023 COVID-19 Vaccine ( season) COVID-19 Vaccine ( season) [facility] Start: 05-04-2023 Influenza vaccination Influenza Vaccine [facility] Start: 01-27-2023 DIABETES SCREEN DIABETES SCREEN [facility] Start: 09-03-2022 ADVANCE DIRECTIVE DISCUSSION ADVANCE DIRECTIVE DISCUSSION [facility] Start: 09-03-2022 DEPRESSION ASSESSMENT DEPRESSION ASSESSMENT [facility] Start: 05-04-2022 Influenza vaccination INFLUENZA (#1) [facility] Start: 09-13-2021 COVID-19 VACCINE (4 - Booster for Moderna series) COVID-19 VACCINE (4 - Booster for Moderna series) [facility] Start: 09-03-2021 ADVANCE DIRECTIVE DISCUSSION ADVANCE DIRECTIVE DISCUSSION [facility] Start: 09-03-2021 DEPRESSION ASSESSMENT DEPRESSION ASSESSMENT [facility] Start: 01-08-2021 Hepatitis B surface antibody level LDL CHOLESTEROL [facility] Start: 07-26-2016 PNEUMOCOCCAL: 65+ (2 - PCV) PNEUMOCOCCAL: 65+ (2 - PCV) [facility] Start: 2014 BONE DENSITY BONE DENSITY [facility] Start: 2014 Fall Risk Screening Fall Risk Screening [facility] Start: 1999 Administration of varicella zoster vaccine Zoster (Shingles) Vaccine (1 of 2) [facility] Start: 1999 SHINGRIX VACCINE (1 of 2) SHINGRIX VACCINE (1 of 2) [facility] Start: 1994 COLOGUARD (FIT-DNA) COLOGUARD (FIT-DNA) [facility] Start: 1994 Colonoscopy COLONOSCOPY [facility] Start: 1994 COLORECTAL CANCER SCREENING COLORECTAL CANCER SCREENING [facility] Start: [address] COLONOGRAPHY [facility] Start: 1994 FECAL OCCULT BLOOD FECAL OCCULT BLOOD [facility] Start: 1994 SIGMOIDOSCOPY SIGMOIDOSCOPY [facility] Start: 1989 Mammography MAMMOGRAM [facility] Start: 1979 Zoledronic acid therapy ALPHA-1 ANTITRYPSIN DEFICIENCY SCREENING [facility] Start: 1968 DTaP,Tdap and Td Vaccines (1 - Tdap) DTaP,Tdap and Td Vaccines (1 - Tdap) [facility] Start: 1968 Urine microalbumin profile DTAP,TDAP,TD (1 - Tdap) [facility] Start: 1967 Adult BMI Follow Up Plan Adult BMI Follow Up Plan [facility] Start: 1967 ANNUAL PCP TEAM CHRONIC DISEASE VISIT ANNUAL PCP TEAM CHRONIC DISEASE VISIT [facility] Start: 1967 BP CONTROLLED (<130/80) BP CONTROLLED (<130/80) [facility] Start: 1967 HEPATITIS C SCREENING HEPATITIS C SCREENING [facility] Start: 1967 SPIROMETRY SPIROMETRY [facility] Start: 1961 Depression Screening Depression Screening [facility] Start: 1949 Medicare Annual Wellness Visit Medicare Annual Wellness Visit [facility] Start: 1949 Tobacco Counseling Tobacco Counseling [facility] Immunizations Immunization Date Immunization Notes Care Provider Fa miguel 06-07-2022 unknown vaccine or immune globulin [facility] Work Phone: [facility] 05-25-2021 influenza, injectable,quadrivalent , preservative free, pediatric [facility] Work Phone: [facility] 05-25-2021 influenza virus vaccine, unspecified formulation Naomirodríguez Bautista A [facility] 09-18-2017 pneumococcal conjuga te vaccine, 13 valent [facility] Work Phone: [facility] 06-03-2017 influenza, seasonal, injectable [facility] Work Phone: [facility] 07-07-2016 influenza virus vaccine, unspecified formulation [facility] Work Phone: [facility] 06-14-2016 influenza, injectabl e, quadrivalent, preservative free [facility] Work Phone: [facility] 07-26-2015 influenza, high dose seasonal, preservative-free Aleksandar Castillo MD Work Phone: [facility] 07-26-2015 pneumococcal polysaccharide vaccine, 23 valent Aleksandar Katie V, MD Work Phone: [facility] Payers Date Payer Category Payer Medicare [id number] 1959 Medicare [id number] 1960 Medicare [id number] 1950 Unknown [id number] 2.16.8 [id number] 1949 Unknown [id number] 2.16.8 [id number] 1949 Unknown [id number] 2.16.84 [id number] 1949 Unknown [id number] 2.16.84 [id number] 1949 Unknown [id number] 2.16.84 [id number] 1949 Unknown [id number] 2.16.84 [id number] 1949 Unknown [id number] 2.16.84 [id number] 1949 Unknown [id number] 2.16.84 [id number] 1949 Unknown [id number] 2.16.84 [id number] 1949 Unknown [id number] 2.16.84 [id number] Unknown Social History Date Type Detail Facility Start: 03-22-2021 End: 08-15-2023 Tobacco smoking status NHIS Smokes tobacco daily [facility] Start: 09-03-1962 History of tobacco use Cigarette Smo ker [facility] Start: 10-14-2020 End: 03-22-2021 Cigarettes smoked current (pack per day) - Reported 0.5 [facility] Start: 03-22-2021 End: 08-15-2023 Tobacco use and exposure Smokeless tobacco non-user [facility] Start: 08-15-2022 End: 08-15-2023 Alcohol intake Current drinker of alcohol (finding) [facility] Start: 03-22-2021 Alcohol Comment [facility] Start: 1950 Sex Assigned At Not on file [facility] Start: 10-14-2020 End: 08-15-2023 Tobacco use panel [facility]care [facility] Start: 04-15-2018 Alcohol Comment SOMETIMES Kuona [facility] Medical Equipment Procedure Code Equipment Code Equipment Origin al Text Equipment Identifier Dates Graft Gelweave 3 0mm Straight Gelatin Polyester Woven 30cm Cardiovascular - [id number] Start: 01-10-2020 [place] Cv 4x.5in Thk1.65mm Ptfe - [id number] Start: 07-20-2015 [place] Thk1.65mm P tfe [id number] Cardiovascular Patch Sterile - [id number] Start: 01-10-2020 Lens Iol 0d +21. 5 [place] Uv Abs - [id number] Start: 04-13-2021 Comment on above: Description: -0.47 Patch Thk.5mm Esteban vine Pericardial [id number] Cardiovascular Resilience Durable - [id number] Start: 01-10-2020 Valve Aort 23mm Crp-Ed Thfx - [id number] Start: 01-10-2020 Clinical Notes 01-09-2020 to 08-01-2023 XIOMARA Farmer - 10/30/2022 3:19 PM ESTTelephone Encounter - Rayna Martin - 10/18/2022 1:30 PM ESTTelephone Encounter - Haven Moreno LPN - 10/18/2022 1:15 PM EST Note Date & Type Note Facility 08-01-2023 Note [facility] Cardiology Clinic Note Chief Complaint: Patient here for follow up [facility]. Underwent heart cath and [...] Severe obstructive karley (more content not included)... [facility] 07-22-2023 Note 07/22/23 1106 Home Oxygen Therapy Evaluation Pulse Oximetry on room air at Rest 87 Pulse Ox on O2 with nasal cannula while at rest 95 (placed patient on 2lpm via nasal cannula) Patient Qualification for home oxygen Qualifies $ Pulse Oximetry Single [facility] 07-22-2023 Note Hospital Medicine Discharge Summary Final Discharge Diagnosis: Newly diagnosed Atrial fibrillation, CHADVASc of 5 s/p AMITA Cardioversion Post cardioversion bradycardia Severe Bioprosthetic Aortic valve stenosis Admission Diagnosis: Atrial fibrillation ([facility]) [I48.91] Hospital course: Darek Mejía is a [...] versus TAVR procedure. Dear Dr. Deidra MD, [facility] is advised to follow up with you [...] 100-62.5-25 mcg blister with device Generic drug: ylzjthuubrj-znwyoxqkg-ewomqrvt STOP taking these medications carvedilol 12.5 mg tablet Commonly known as: Coreg Where to Get Your Medications These medications were sent to [facility]acy #[id number] AT CORNER OF [address] [address] apixaban 5 mg tablet Darek is allergic [...] rales or rh (more content not included)... [facility] 07-22-2023 Note Attestation signed by Kvng [...] 124 QT Interval 462 QTC CALCULATION(BAZETT) 412 R-[place] -64 T Wave [place] -82 Impression Wide QRS rhythm Left anterior fascicular block Left ventricular hypertrophy with QRS widening and repolarization abnormality ( Towaoc product ) Cannot rule out Septal infarct [...] with QRS widening and repolarization abnormality ( Towaoc product ) Cannot rule out Septal infarct [...] CABG x5 with revesion in 2020 at [facility] (CH-LAD, rSVG- Diagonal, SVG-OM, SVG-PDA-PLV) Aortic [...] Juancarlos Egan MD PGY-2 Internal Medicine Resident [facility] 07-21-2023 Note Physical Therapy Physical Therapy [...] in bed and is agreeable to PT felicity RN also agreeable. Pt reports she fractured [...] artery disease involving coronary bypass graft of tulalip heart with angina pectoris (CMS/HCC) Dyslipidemia Encounter [...] reflux disease) Other emphysema (CMS/HCC) Atrial fibrillation ([facility]/HCC) Acute heart failure with preserved ejection fraction ([facility]/HCC) Nonrheumatic aortic valve stenosis Past Medical History: [...] Level of Function Prior Function Level of [place]: Independent with ADLs and functional transfers, Independent [...] to walk i (more content not included)... [facility] 07-21-2023 Note Hospital Medicine Daily Progress Note - 07/21/2023 11:41 AM; Room: [facility]313[facility] Admission: 07/19/2023 8:09 PM; Length of stay: 2 days THE HOSPITALIST TEAM PREFERS TO USE TDX CHAT FOR COMMUNICATION 7AM-7PM. IF I DO NOT RESPOND WITHIN 15 MINUTES, PLEASE PAGE ME/CALL THROUGH THE COIN ROLLING MACHINE OPERATOR. FROM 7PM-7AM, PLEASE PAGE [phone](COVR) Code Status: Full Code Barriers to Discharge: [...] Active Inpatient Problems Principal Problem: Atrial fibrillation ([facility]) Active Problems: Acute heart failure with preserved ejection fraction ([facility]) Nonrheumatic aortic valve stenosis Assessment and Plan Severe Bioprosthetic Aortic valve stenosis Newly diagnosed Atrial fibrillation, CHADVASc = 5 CAD s/p CABG x5 with revesion in 2019 at [facility] (CH-LAD, rSVG- Diagonal, SVG-OM, SVG-PDA-PLV) Aortic [...] FREET4 1.14 07/21/2023 No results found for: [id number], IRON, TIBC, C3, C4, MIRIAM, CANCA, ASO, [...] Signed Ulysses Fuller (more content not included)... [facility] 07-21-2023 Note Attestation signed by Kvng [...] 124 QT Interval 462 QTC CALCULATION(BAZETT) 412 R-[place] -64 T Wave [place] -82 Impression Wide QRS rhythm Left anterior fascicular block Left ventricular hypertrophy with QRS widening and repolarization abnormality ( Towaoc product ) Cannot rule out Septal infarct [...] with QRS widening and repolarization abnormality ( Towaoc product ) Cannot rule out Septal infarct [...] CABG x5 with revesion in 2020 at [facility] (CH-LAD, rSVG- Diagonal, SVG-OM, SVG-PDA-PLV) Aortic [...] bradycardia with amiodar (more content not included)... [facility] 07-21-2023 Note Called re pt with br adycardia and frequent pvcs Recent labs reviewed will check free T4/T3 since tsh 0.06 consider readjusting doses check troponins hold coreg ekg staff to notify cardiology serum calcium high normal check vit d and repeat cmp [facility] 07-20-2023 Note Procedure Report PROCEDURE: synchronized cardioversion INDICATION: atrial fibrillation, persistent COIN ROLLING MACHINE OPERATOR: Gallo Knowles M.D. ANESTHESIA: conscious sedation TECHNIQUE: [...] sinus rhythm. There were no apparent complications. [facility] 07-20-2023 Note Hospital Medicine Daily Progress Note - 07/20/2023 12:37 PM; Room: [address] [place] [address] Admission: 07/19/2023 8:09 PM; Length of stay: 1 days THE HOSPITALIST TEAM PREFERS TO USE TDX CHAT FOR COMMUNICATION 7AM-7PM. IF I DO NOT RESPOND WITHIN 15 MINUTES, PLEASE PAGE ME/CALL THROUGH THE COIN ROLLING MACHINE OPERATOR. FROM 7PM-7AM, PLEASE PAGE [phone](COVR) Code Status: Full Code Barriers to Discharge: [...] Active Inpatient Problems Principal Problem: Atrial fibrillation ([facility]) Active Problems: Acute heart failure with preserved ejection fraction ([facility]) Nonrheumatic aortic valve stenosis Assessment and Plan Severe Bioprosthetic Aortic valve stenosis Newly diagnosed Atrial fibrillation, CHADVASc = 5 CAD s/p CABG x5 with revesion in 2020 at [facility] (CH-LAD, rSVG- Diagonal, SVG-OM, SVG-PDA-PLV) Aortic [...] last 7 days Lab Units 07/20/23 0531 07/19/237 WBC AUTO 10*3/uL 5.76 6.17 HEMOGLOBIN g/dL [...] FREET4 1.31 07/19/2023 No results found for: [id number], IRON, TIBC, C3, C4, MIRIAM, CANCA, ASO, PSA, CEA, CA125, CA199, AFP, CA153 Imaging ECG 12 lead Atrial fibrillation Left axis deviation Left ventricular hypertrophy with QRS widening and repolarization abnormality ( Towaoc product ) Cannot rule out Anteroseptal infarct [...] in the epigastric (more content not included)... [facility] 07-20-2023 Note Clinical Nutrition A ssessment [...] based on: actual body weight Calorie needs: 1348-1278 kcals/day based on Equation: 25-30 kcal/kg Protein needs: 65-82 g/day based on 1.2-1.5 g/kg -underweight. Lean body mass preservation Dietary Orders (From admission, onward) Start Ordered 07/20/23719 Diet NPO Diet effective now Comments: Sips [...] with questions and contact the dietitian via [employer] chat 8A-4P Sunday-Sunday. Or call the dietitian's office at extension [phone]. For weekends/holidays, the dietitian's can be reached by paging [phone] from 9A-3P. Unable to be reached via [employer] chat on Sunday & .) [facility] 07-20-2023 Note Occupational Therapy Occupational Therapy [...] artery disease involving coronary bypass graft of tulalip heart with angina pectoris (CMS/HCC) Dyslipidemia Encounter [...] (CMS/HCC) GERD (gastroesophageal reflux disease) Other emphysema ([facility]/HCC) Atrial fibrillation ([facility]/HCC) Acute heart failure with preserved ejection fraction ([facility]/HCC) Nonrheumatic aortic valve stenosis Past Medical History: [...] Level of Function Prior Function Level of [place]: Independent with ADLs and functional transfers, Independent [...] Eating meals?: None (Independent) Total Score OT [facility]: 21 Assessment/Plan OT Assessment OT Impairments: Decreased ADL status, Decreased endurance, Decreased functional mobility OT Assessment/HAND FORMER Summary: (needs skilled OT for generalized weakness and fatigue) Prognosis: Good Evaluation/Treatment Tolerance: Patient limited by fatigue Medical Staff Made Aware: Yes OT Education/Comments: (ws/ec/pacing , ae/dme that may improve endurance for adls at home , all with good verbal return) Plan Level of assist: 1 assist Treatment Interventions: ADL retraining, Fu (more content not included)... [facility] 07-20-2023 Note Hospital Medicine History and Physical 07/19/2023 10:58 PM THE HOSPITALIST TEAM PREFERS TO USE TDX CHAT FOR COMMUNICATION 7AM-7PM. IF I DO NOT RESPOND WITHIN 15 MINUTES, PLEASE PAGE ME/CALL THROUGH THE COIN ROLLING MACHINE OPERATOR. FROM 7PM-7AM, PLEASE PAGE [phone](COVR) Chief Complaint No chief complaint on file. History of Present Illness Darek Mejía is an 73 y.o. female admitted from home per recommendation by her telecom specialist who saw her in the office and [...] Problem List Diagnosis Date Noted Atrial fibrillation ([facility]) 07/19/2023 GERD (gastroesophageal reflux disease) 10/30/2022 Other emphysema ([facility]) 10/30/2022 Combined forms of age-related cataract of both eyes 04/13/2021 Pleural effusion 01/19/2020 Encounter for support and coordination of transition of care 01/15/2020 Moderate protein-calorie malnutrition ([facility]) 01/11/2020 Hx of CABG 01/10/2020 Nonrheumatic aortic valve insufficiency 01/09/2020 Dyslipidemia 03/25/2019 Macular hole of right eye 10/23/2017 Ischemic heart disease, chronic 08/24/2015 Chronic systolic heart failure ([facility]) 07/24/2015 CHF (congestive heart failure) ([facility]) 07/24/2015 Hypervolemia 07/23/2015 Atelectasis 07/21/2015 Coronary artery disease involving 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 [facility] 07-19-2023 Note [facility] Cardiology Clinic Note Chief Complaint: [...] motion with ejection (more content not included)... [facility] 04-23-2023 Note [facility] Cardiology Clinic Note Chief Complaint: [...] of ventricular bigeminy. (more content not included)... [facility] 01-31-2023 Note Continue GDMT- ASA, lipitor, coreg continue risk factor modifications- heart healthy diet, regular exercise as tolerated and continue all medications. [facility] 01-31-2023 Note [facility] II- currently e uvolemic without excaerbation Continue GDMT- ASA, lipitor, coreg, lisinopril and aldatone Diuretic therapy- lasix every other day Monitor daily weights, I&O, fluid restriction 1.5-2L/day, renal function and electrolytes- [facility] 01-31-2023 Note Stable- continue all meds [facility] 01-31-2023 Note Review of B/P log an d her HTN is much better controlled with addition of aldactone. K+ level remains normal and renal function is stable for her. Denied lightheadedness/dizziness Continue aldactone, lisinopril, coreg and lasix QOD [facility] 01-31-2023 Note Patient here for 2 [...] All other systems reviewed and are negative. [facility] 01-31-2023 Note [facility] CARDIOLOGY PROGR ESS [...] in the morning, afternoon, and at bedtime. 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 RTC 3 months with repeat BMP in 1 week [facility] 01-11-2023 Note Review of b/p log sh ows HTN remains uncontrolled at home- will add aldactone to regime and repeat BMP in 1 week to assess renal function and potassium level Have pt RTC in 2-4 weeks- message sent to Quyen Vernon MA. [facility] 01-11-2023 Note Benign hypertensive cardiomyopathy with heart failure (CMS/HCC) Review of b/p log shows HTN remains uncontrolled at home- will add aldactone to regime and repeat BMP in 1 week to assess renal function and potassium level Have pt RTC in 2-4 weeks- message sent to A Saulo SALGADO. Orders Placed This Encounter Procedures Basic metabolic panel Standing Status: Future Standing Expiration Date: 01/12/2024 Order Specific Question: Release to Patient Answer: Immediately Hawa Rush ROLL UP OPERATOR Division of Cardiology, [facility]- [phone] Pager- [phone] Email- [email or web address] 12-21-2022 Note [facility] II- currently e uvolemic without exacerbation Continue GDMT- ASA, lipitor, coreg, lisinopril Diuretic therapy- lasix qod Monitor daily weights, I&O, fluid restriction 1.5-2L/day, renal function and electrolytes- [facility] 12-21-2022 Note Coronary artery dise ase is stable Continue GDMT continue risk factor modifications- heart healthy diet, regular exercise as tolerated and continue all medications. [facility] 12-21-2022 Note stable: [facility] 12-21-2022 Note Currently stable wit hout any concerning symptoms [facility] 12-21-2022 Note Reviewed echocardiog ashwini with pt from 08/2022 No concerning symptoms currently Will repeat echo at 1 year- or Aug 2023 [facility] 12-21-2022 Note Hypertension is elev ated in office each time she is here most likely r/t white coat syndrome. States b/p typically at home is 130's/70 with occasional 140/80 Continue all meds [facility] 12-21-2022 Note Continue lipitor 80 mg [facility] 12-21-2022 Note Patient here for 4 [...] All other systems reviewed and are negative. [facility] 12-21-2022 Note [facility] CARDIOLOGY PROGR ESS [...] at 1 yea (more content not included)... [facility] 10-30-2022 Note HNO ID: [id number] Author: XIOMARA Farmer Service: ? Author Type: Senior Clinical Sas Programmer Type: Progress Notes Filed: 10/30/2022 3:28 PM Note Text: CONFIRM AIM PLANO LEFT EYE. XIOMARA Farmer [facility] 10-30-2022 History of Present illness Narrative CONFIRM AIM PLANO LEFT EYE. XIOMARA Farmer documented in this encounter [facility] 10-18-2022 Miscellaneous Notes Called and spoke [...] 2022 1:18 PM documented in this encounter [facility] 08-15-2022 Note HNO ID: [id number] Author: Aleksandar Wilson V, MD Service: ? [...] and surgery - Com[place] with Dr Mccollum; prime [facility] POD #1 Cataract Presurgical Documentation Cataract: Left [...] patient was offered a surgery/procedure at a [facility] facility. The surgeon/proceduralist and patient have [...] patient was offered a surgery/procedure at a [facility] facility. The surgeon/proceduralist and patient have [...] form. -F/U [address] Mccollum ([facility]) The documentation recorded by the scribe accurately reflects the service I personally performed and the decisions made by me. I have confirmed and edited as necessary the relevant ophthalmic history, ROS, and the exam findings as obtained by others. I have seen and examined Darek Mejía. I also have reviewed and agree with the ass (more content not included)... [facility] 08-15-2022 Note HNO ID: [id number] Author: Jean-Claude Miles, LAWANDA Service: ? Author Type: DEVELOPER SUPPORT ENGINEER Type: Progress Notes Filed: 08/15/2022 3:51 PM [...] Miles, OD August 15, 2022 3:07 PM [facility] 08-15-2022 History of Present illness Narrative The [...] and surgery - Comanage with Dr Mccollum; [facility] POD #1 Cataract Presurgical Documentation Cataract: Left [...] patient was offered a surgery/procedure at a [facility] facility. The surgeon/proceduralist and patient have [...] patient was offered a surgery/procedure at a [facility] facility. The surgeon/proceduralist and patient have [...] form. -F/U [address] Mccollum ([facility]) The documentation recorded by the scribe accurately [...] 2022 3:07 PM documented in this encounter [facility] 01-09-2020 History of Past i llness [...] Dental: N/A PFT's: N/A ( per [employer] data warehouse administrator - Per Dr. Bernal okay to proceed [...] of this encounter (statuses as of 08/15/2022) [facility]05-08-2020 History of Past illness Narrative* Problem [...] Dental: N/A PFT's: N/A ( per [employer] data warehouse administrator - Per Dr. Bernal okay to proceed [...] of this encounter (statuses as of 08/16/2022) [facility] History of Past illness Narrative* Problem [...] Dental: N/A PFT's: N/A ( per [employer] data warehouse administrator - Per Dr. Bernal okay to proceed [...] of this encounter (statuses as of 10/18/2022) [facility]2020 History of Past illness Narrative* Problem [...] Dental: N/A PFT's: N/A ( per [employer] data warehouse administrator - Per Dr. Bernal okay to proceed [...] of this encounter (statuses as of 10/31/2022) [facility] note* Diagnosis PCO (posterior capsular opacification), right- Primary After-cataract, unspecified Pseudophakia, right eye Lens replaced by other means Combined forms of age-related cataract of left eye Other and combined forms of senile cataract Full thickness macular hole, right [facility] Diagnosis Combined forms of age-related cataract of left eye- Primary Other and combined forms of senile cataract documented in this encounter [facility] note* Diagnosis Combined forms of age-related cataract of left eye- Primary Other and combined forms of senile cataract Combined forms of age-related cataract of left eye Other and combined forms of senile cataract documented in this encounter [facility] note* Diagnosis 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 Family history of colon cancer Family history of malignant neoplasm of gastrointestinal tract [facility] filed[facility] this [facility] Summary Purpose Family History No Family History Records FoundNo Family History Records FoundNo Family History Records FoundNo Family History Records FoundNo Family History Records FoundNo Family History Records FoundNo Family History Records Found Advance Directives Documents on File Type Date Recorded Patient Rn Spine Expl anation Advance Directive(s) 01/16/2020 9:56 PM [...] list: All Problems Smoker / SNOMED CT [id number] / Confirmed Added secondary to documentation in [...] section and content) DATE CREATED AUTHOR 02/21/2018 [facility] DATE CREATED AUTHOR AUTHOR'S ORGANIZ ATION 02/25/2018 [facility] DATE CREATED AUTHOR AUTHOR'S ORGANIZ ATION 04/19/2019 [facility] DATE CREATED AUTHOR AUTHOR'S ORGANIZ ATION 08/22/2019 [facility] DATE CREATED AUTHOR AUTHOR'S ORGANIZ ATION 11/02/2022 [facility] DATE CREATED AUTHOR AUTHOR'S ORGANIZ ATION 12/09/2022 [facility] DATE CREATED AUTHOR AUTHOR'S ORGANIZ ATION 09/10/2023 [facility] Source Comments (unrecognize d section and content) In the event this informatio n is protected by the Federal Confidentiality of Alcohol and Drug Abuse Patient Records regulations: The Federal rules restrict any use of the information to criminally investigate or prosecute any alcohol or drug abuse patient[facility] event this information is protected by the Federal Confidentiality of Alcohol and Drug Abuse Patient Records regulations: The Federal rules restrict any use of the information to criminally investigate or prosecute any alcohol or drug abuse patient.[facility] the event this information is protected by the Federal Confidentiality of Alcohol and Drug Abuse Patient Records regulations: The Federal rules restrict any use of the information to criminally investigate or prosecute any alcohol or drug abuse patient.[facility] the event this information is protected by the Federal Confidentiality of Alcohol and Drug Abuse Patient Records regulations: The Federal rules restrict any use of the information to criminally investigate or prosecute any alcohol or drug abuse patient.[facility] Reason for Visit (unrecogniz ed section and content) Reason Comments Cataract Evaluation Left eye Posterior Capsule Opacification Evaluati on Right eye Specialty Diagnoses / Procedures Referred By Contac t Referred To Contact OPHTHALMOLOGY Diagnoses Combined forms of age-related cataract, bilateral Laser Yag Procedures POST-CATARACT LASER SURGERY Darian Coy OD [address] [place] [id number] [facility] [address] [place] [address] Referral ID Status Reason Start Date Expiration Date Visits Re quested Visits Authorized [id number] Closed 03/21/2022 09/27/2022 1 1 Reason Comments Appointment Reason Comments Pre-Op Exam Care Teams (unrecognized sec tion and content) Computer Numerical Control Operator Relationship Specialty Start Date End Date Kayleigh Gay MD PCP - General Family Medicine 06/17/15 Kayleigh Gay MD [facility] Medicine 06/17/15 Computer Numerical Control Operator Relationship Specialty Start Date End Date Kayleigh Gay MD PCP - General Family Medicine 06/17/15 Kayleigh Gay MD [facility] Medicine 06/17/15 Computer Numerical Control Operator Relationship Specialty Start Date End Date Kayleigh Gay MD PCP - General Family Medicine 06/17/15 Kayleigh Gay MD [facility] 06/17/15 Computer Numerical Control Operator Relationship Specialty Start Date End Date Kayleigh Gay MD PCP - General Family Medicine 06/17/15 Kayleigh Gay MD [facility] Medicine 06/17/15 Computer Numerical Control Operator Relationship Specialty Start Date End Date Kayleigh Gay MD [address] [place] [id number] PCP - General 04/15/18 Computer Numerical Control Operator Relationship Specialty Start Date End Date Kayleigh Gay MD [address] [place] [id number] PCP - General 04/15/18 FOR RECORDS PERTAINING TO PATIENTS WHO ARE [...] BE BASED ON THE PRIMARY CLINICAL RECORDS. [facility] [employer] [facility]. provides no warranty or guarantee of the accuracy or completeness of information in this document.
== END 2023-10-29 09:49 | disposition home or self-care (01) ==
LOC: CARD 09:49
PROVIDERS: PCP Family Medicine; Visit Provider Internal Medicine Interventional Cardiology
DX: Z95.2 Presence of prosthetic heart valve (principal)
CPT/HCPCS: 93306; 93356

== ENCOUNTER 2023-10-29 09:52 | Outpatient (OUT) | payer MEDICARE, SELFPAY ==
--- OUTSIDE RECORDS SUMMARY | 2023-10-29 10:10 | XMS_ITS | CCD ---
Author Name Unknown Address [address] [place] [address] Organization [facility] Care Team Providers Care Assistant Press Operator Name Role Phone DUSTIN MCMAHON K [...] Vishaly , Kayleigh Avila Primary Care Provider [phone] Allergies Allergy Classification Reported Allergen(s) Allergy Type Date of Onset Reaction(s) Facility (9 sources) Allopurinol; Translations: [ALLOPURINOL] Drug Allergy 5 Intolerance, Other (See Comments) [facility] (8 sources) diphtheria toxoid vaccine, inactivated / tetanus toxoid vaccine, inactivated; Translations: [TETANUS AND DIPHTHER. TOX (PF)] Drug Allergy 8 Intolerance [facility] (5 sources) Isosorbide; Translations: [ISOSORBIDE MONONITRATE] Drug Allergy 6 Intolerance [facility] (7 sources) tetanus toxoid vaccine, inactivated; Translations: [TETANUS TOXOID ADSORBED] Drug Allergy 5 Other: See Comments [facility] (3 sources) Isosorbide Dinitrate; Translations: [ISOSORBIDE DINITRATE] Drug Allergy 6 Nausea And Vomiting [facility] Repository (3 sources) Spironolactone; Translations: [SPIRONOLACTONE ] Drug Allergy 3 Nausea And Vomiting [facility] Repository (1 source) TETANUS VACCINES AND TOXOID; Translations: [TETANUS VACCINES AND TOXOID] Propensity to adverse reactions to drug (disorder) 5 [facility] Repository Medications Current Medications Medication Drug Class(es) [...] Active Start: 05-09-2022 take 1 capsule by [facility] once daily Cholecalciferol, Vitamin D3, 50 mcg [...] Start: 07-21-2022 take 1 puff(s) by mo [facility] once daily TRELEGY ELLIPTA 100-62.5-25 mcg inhalation [...] Coronary atherosclerosis; Translations: [Atherosclerotic heart disease of [place] coronary artery without angina pectoris] Onset: 06-22-2015 [...] Range Facility EGD / Colonoscopyon 10-10-19 24 [facility] Surgical PathologyOrdered By : Naomi Bautista on 10-10-2023 [facility] Orders Onlyon 09-05-2023 Orders Only [id number] Darek Mejía 1950 Date Provider Department Center 09/05/2023 NARAYAN RODRIGUEZ Family History Problem Relation Age of Onset Coronary artery disease Father Diabetes Father Family Status - Relation Status Age at Father [facility] 35on 08-17-2023 35 6 weeks s/p cardioversion would be 08/31/2023. Judy at Dr. Zhang' office made aware via fax. [facility] [address] Willian henderson' office called requesting Darek Coombs 3 days prior to EGD/colonscopy scheduled on 09/05/2023. Please advise. [facility] Office Visiton 08-01-2023 Follow-up visit [id number] Darek Mejía 1950 F Date Provider Department Center 08/01/2023 271-OPAL CARVALHO [facility]ARD [facility] Family History Problem Relation Age of Onset Coronary artery disease Father Diabetes Father Family Status - Relation Status Age at Father Level of Service:23344 [place] OFFICE/OUTPATIENT ESTABLISHED HIGH MDM 40-54 MIN Normal [facility] 30on 07-22-2023 30 Problem: Pain - Adul [...] dysrhythmias or at baseline Outcome: Progressing Normal [facility] 30 The patient is Moderately Stable - [...] dysrhythmias or at baseline Outcome: Progressing Normal [facility] ANTI-XA (HEPARIN LEVEL)on HEPARIN UNFRACTIONATED (U/ML) IN PPP BY CHROMOGENIC METHOD 0.17 IU/mL Low 0.3-0.7 [facility] Comment on above: Result Comment: [place] roxaban and Apixaban will interfere with the anti Xa assay used to monitor UFH and LMWH. Performed By: #### L [id number] #### [facility] (BEAKER) [address] [place] [address] HEPARIN UNFRACTIONATED (U/ML) IN PPP BY CHROMOGENIC METHOD 0.21 IU/mL Low 0.3-0.7 [facility] Comment on above: Result Comment: [place] roxaban and Apixaban will interfere with the anti Xa assay used to monitor UFH and LMWH. Performed By: #### L [id number] #### [facility] ([facility]) [address] [place] [address] CBCon 07-22-2023 Erythrocyte distribution width (RBC) [Ratio] 16.5 % High 11.5-15.0 [facility] Comment on above: Performed By: #### L [id number] #### [facility] ([facility]) [address] [facility] [address] ERYTHROCYTE MEAN CORPUSCULAR HEMOGLOBIN CONCENTRATION (G/DL) BY AUTOMATED 32.0 g/dL Normal 32.0-35.0 [facility] Comment on above: Performed By: #### L [id number] #### [facility] ([facility]) [address] [place] [address] Hematocrit (Bld) [Volume fraction] 29.1 % Low 36.0-48.0 [facility] Comment on above: Performed By: #### L [id number] #### [facility] ([facility]) [address] [place] [address] Hemoglobin (Bld) [Mass/Vol] 9.3 g/dL Low 12.0-15.0 [facility] Comment on above: Performed By: #### L [id number] #### [facility] ([facility]) [address] [facility] [place] [address] MCH (RBC) [Entitic mass] 27.0 pg Normal 27.0-33.0 [facility] Comment on above: Performed By: #### L [id number] #### [facility] ([facility]) [address] [place] [address] MCV (RBC) [Entitic vol] 84.6 fL Normal 82.0-98.0 [facility] Comment on above: Performed By: #### L [id number] #### [facility] ([facility]) [address] [facility] [address] PLATELETS (10*3/UL) IN BLOOD AUTOMATED COUNT 202 10*3/uL Normal 150-400 [facility] Comment on above: Performed By: #### L [id number] #### [facility] (BEAKER) [address] [place] [address] RBC (Bld) [#/Vol] 3.44 10*6/uL Low 3.80-5.00 [facility] Comment on above: Performed By: #### L [id number] #### [facility] (BEAKER) [address] [place] [address] WBC (Bld) [#/Vol] 6.43 10*3/uL Normal 4.00-10.60 [facility] Comment on above: Performed By: #### L [id number] #### [facility] (BEAKER) [address] [place] [address] 30on 07-21-2023 30 Problem: Pain - Adul [...] and behaviors that affect risk of falls [place] fall precautions as indicated by assessment Educate [...] for the shift include VSS; safety Normal [facility] 30 The patient is Moderately Stable - [...] or at baseline Outcome: Not Progressing Normal [facility] ANTI-XA (HEPARIN LEVEL)on HEPARIN UNFRACTIONATED (U/ML) IN PPP BY CHROMOGENIC METHOD 0.14 IU/mL Invalid Interpretation Code 0.3-0.7 [facility] Comment on above: Result Comment: [place] roxaban and Apixaban will interfere with the anti Xa assay used to monitor UFH and LMWH. Performed By: #### L [id number] ####[facility] (BEAKER)[address] [place] [address] HEPARIN UNFRACTIONATED (U/ML) IN PPP BY CHROMOGENIC METHOD <0.10 Invalid Interpretation Code 0.3-0.7 [facility] Comment on above: Result Comment: [place] roxaban and Apixaban will interfere with the anti Xa assay used to monitor UFH and LMWH. Performed By: #### L [id number] #### [facility] ([facility]) [address] [place] [address] HEPARIN UNFRACTIONATED (U/ML) IN PPP BY CHROMOGENIC METHOD <0.10 Invalid Interpretation Code 0.3-0.7 [facility] Comment on above: Order Comment: Check anti-Xa level every 6 hours while on heparin infusion, or per protocol. Result Comment: [place] roxaban and Apixaban will interfere with the anti Xa assay used to monitor UFH and LMWH. Performed By: #### L [id number] #### [facility] ([facility]) [address] [place] [address] B-TYPE NATRIURETIC PEPTIDEon 07-21-2023 Natriuretic peptide B (Bld) [Mass/Vol] 841 pg/mL High 0-100 [facility] Comment on above: Performed By: #### L [id number] #### [facility] ([facility]) [address] [place] [address] COMPREHENSIVE METABOLIC PANE Oscar 07-21-2023 Albumin [Mass/Vol] 2.9 g/dL Low 3.5-5.7 [facility] Comment on above: Performed By: #### L [id number] #### [facility] ([facility]) [address] [facility] [place] [address] ALP [Catalytic activity/Vol] 97 U/L Normal 34-104 [facility] Comment on above: Performed By: #### L [id number] #### [facility] ([facility]) [address] [facility] [place] [address] ALT [Catalytic activity/Vol] 12 U/L Normal 7-52 [facility] Comment on above: Performed By: #### L [id number] #### [facility] ([facility]) [address] [facility] [address] Anion gap [Moles/Vol] 11 mmol/L Normal 7-20 [facility] Comment on above: Performed By: #### L [id number] #### [facility] (BEAKER) [address] [place] [address] AST [Catalytic activity/Vol] 21 U/L Normal 13-39 [facility] Comment on above: Performed By: #### L [id number] #### [facility] ([facility]AKER) [address] [place] [address] Bilirubin [Mass/Vol] 0.6 mg/dL Normal 0.3-1.0 [facility] Comment on above: Performed By: #### L [id number] #### [facility] (BEAKER) [address] [place] [address] Calcium [Mass/Vol] 9.7 mg/dL Normal 8.6-10.3 [facility] Comment on above: Performed By: #### L [id number] #### [facility] ([facility]) [address] [place] [address] Chloride [Moles/Vol] 108 mmol/L High 98-107 [facility] Comment on above: Performed By: #### L [id number] #### [facility] (BEAKER) [address] [place] [address] CO2 [Moles/Vol] 23 mmol/L Normal 21-31 [facility] Comment on above: Performed By: #### L [id number] #### [facility] ([facility]AKER) [address] [place] [address] Creatinine [Mass/Vol] 0.68 mg/dL Normal 0.60-1.20 [facility] Comment on above: Performed By: #### L [id number] #### [facility] (BEAKER) [address] [place] [address] GLOMERULAR FILTRATION RATE ML/MIN/1.73 SQ M.PREDICTED 91.3 mL/min/1.73m*2 Normal >60.0 [facility] Comment on above: Result Comment: The [facility]???s estimated glomerular filtration rate (eGFR) will no [...] individuals. Performed By: #### L [id number] #### [facility] ([facility]) [address] [place] [address] Glucose [Mass/Vol] 92 mg/dL Normal 70-100 [facility] Comment on above: Performed By: #### L [id number] #### [facility] ([facility]) [address] [place] [address] Potassium [Moles/Vol] 3.8 mmol/L Normal 3.5-5.1 [facility] Comment on above: Performed By: #### L [id number] #### [facility] ([facility]) [address] [place] [address] Protein [Mass/Vol] 5.4 g/dL Low 6.0-8.3 [facility] Comment on above: Performed By: #### L [id number] #### [facility] ([facility]) [address] [place] [address] Sodium [Moles/Vol] 138 mmol/L Normal 136-145 [facility] Comment on above: Performed By: #### L [id number] #### [facility] ([facility]) [address] [place] [address] Urea nitrogen [Mass/Vol] 19 mg/dL Normal 7-25 [facility] Comment on above: Performed By: #### L [id number] #### [facility] ([facility]) [address] [place] [address] UREA NITROGEN/CREATININE (MASS RATIO) IN SER/PLAS 27.9 Normal [facility] Comment on above: Performed By: #### L [id number] #### [facility] ([facility]) [address] [place] [address] HEMOGLOBIN AND HEMATOCRIT, B LOODon 07-21-2023 Hematocrit (Bld) [Volume fraction] 29.9 % Low 36.0-48.0 [facility] Comment on above: Performed By: #### L [id number] #### [facility] ([facility]) [address] [place] [address] Hemoglobin (Bld) [Mass/Vol] 9.5 g/dL Low 12.0-15.0 [facility] Comment on above: Performed By: #### L [id number] #### [facility] ([facility]) [address] [place] [address] MAGNESIUMon 07-21-2023 Magnesium [Mass/Vol] 1.5 mg/dL Low 1.9-2.7 [facility] Comment on above: Performed By: #### L [id number] ####[facility] ([facility])[address] [facility] [place] [address] T3, FREEon 07-21-2023 TRIIODOTHYRONINE (T3) FREE (PG/ML) IN SER/PLAS 3.7 pg/mL Normal 2.5-3.9 [facility] Comment on above: Performed By: #### L [id number] ####[facility] ([facility])[address] [place] [address] T4, FREEon 07-21-2023 THYROXINE (T4) FREE (NG/DL) IN SER/PLAS 1.14 ng/dL Normal 0.71-1.85 [facility] Comment on above: Performed By: #### L [id number] ####[facility] ([facility])[address] [facility] [place] [address] TROPONIN Ion 07-21-2023 Troponin I.cardiac [Mass/Vol] 0.04 ng/mL Normal 0.00-0.04 [facility] Comment on above: Performed By: #### L [id number] #### [facility] ([facility]) [address] [place] [address] Troponin I.cardiac [Mass/Vol] 0.05 ng/mL High 0.00-0.04 [facility] Comment on above: Performed By: #### L [id number] ####[facility] ([facility])[address] [place] [address] VITAMIN D 1,25 DIHYDROXYon 1 09-20-2022 VITAMIN D 1,25-DIHYDROXY 32.9 pg/mL Normal 19.9-79.3 [facility] Comment on above: Result Comment: INTE RPRETIVE INFORMATION: Vitamin D, 1,25-Dihydroxy This test is primarily indicated during patient evaluation for hypercalcemia and renal failure. A normal result does not rule out Vitamin D deficiency. The recommended test for diagnosing Vitamin D deficiency is Vitamin D 25-hydroxy. Performed By: [facility] [address] [place] [address] [employer]: Zeus Ventura MD, PhD CLIA Number: [id number] Performed By: #### L [id number] ####[facility] ([facility])[address] [place] [address] VITAMIN D 25 HYDROXYon 07-21 CALCIDIOL (25 [place] VITAMIN D3) (NG/ML) IN SER/PLAS 23.2 ng/mL Low 30.0-80.0 [facility] Comment on above: Result Comment: >80. 0 Toxicity possible Performed By: #### L [id number] #### [facility] (BEAKER) [address] [place] [address] 30on 07-20-2023 30 Daily Case Managemen t Update Multidisciplinary rounds have been completed. End of shift note. 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 Heparin gtt. Cardiac [...] Question: Reason for OT? Answer: fall 07/19/232117 [facility] 30 Problem: Pain - Adul t Goal: [...] and behaviors that affect risk of falls [place] fall precautions as indicated by assessment Educate [...] for the shift include VSS; safety Normal [facility] ANESon 07-20-2023 ANES Patient: Darek Mejía Choose [...] fellow and attending. Additional Equipment Requests Normal [facility] ANES Patient: Darek Dickjocelynemarlene Choose an anesthesia [...] fellow and attending. Additional Equipment Requests Normal [facility] ANTI-XA (HEPARIN LEVEL)on HEPARIN UNFRACTIONATED (U/ML) IN PPP BY CHROMOGENIC METHOD <0.10 Invalid Interpretation Code 0.3-0.7 [facility] Comment on above: Order Comment: Check anti-Xa level every 6 hours while on heparin infusion, or per protocol. Result Comment: [place] roxaban and Apixaban will interfere with the anti Xa assay used to monitor UFH and LMWH. Performed By: #### L [id number] #### [facility] (BEAKER) [address] [place] [address] CBCon 07-20-2023 Erythrocyte distribution width (RBC) [Ratio] 16.4 % High 11.5-15.0 [facility] Comment on above: Performed By: #### L [id number] #### [facility] ([facility]) [address] [place] [address] ERYTHROCYTE MEAN CORPUSCULAR HEMOGLOBIN CONCENTRATION (G/DL) BY AUTOMATED 32.2 g/dL Normal 32.0-35.0 [facility] Comment on above: Performed By: #### L [id number] #### [facility] ([facility]) [address] [place] [address] Hematocrit (Bld) [Volume fraction] 32.3 % Low 36.0-48.0 [facility] Comment on above: Performed By: #### L [id number] #### [facility] ([facility]) [address] [place] [address] Hemoglobin (Bld) [Mass/Vol] 10.4 g/dL Low 12.0-15.0 [facility] Comment on above: Performed By: #### L [id number] #### [facility] ([facility]) [address] [place] [address] MCH (RBC) [Entitic mass] 26.8 pg Low 27.0-33.0 [facility] Comment on above: Performed By: #### L [id number] #### [facility] ([facility]) [address] [place] [address] MCV (RBC) [Entitic vol] 83.2 fL Normal 82.0-98.0 [facility] Comment on above: Performed By: #### L [id number] #### [facility] ([facility]) [address] [place] [address] PLATELETS (10*3/UL) IN BLOOD AUTOMATED COUNT 262 10*3/uL Normal 150-400 [facility] Comment on above: Performed By: #### L [id number] #### [facility] ([facility]) [address] [place] [address] RBC (Bld) [#/Vol] 3.88 10*6/uL Normal 3.80-5.00 [facility] Comment on above: Performed By: #### L [id number] #### [facility] ([facility]) [address] [place] [address] WBC (Bld) [#/Vol] 5.76 10*3/uL Normal 4.00-10.60 [facility] Comment on above: Performed By: #### L [id number] #### [facility] ([facility]) [address] [facility] [place] [address] CONSULTon 07-20-2023 CONSULT --- Attestation signed by [...] CKMB, CKM (more content not included)... Normal [facility] HPon 07-20-2023 History Of Present Illness Darek [...] further evaluate symptoms Faith Hassan DO, MPH Doper Operator [facility] HP H&P reviewed. The patient was examined and there are no changes to the H&P. Normal [facility] ANTI-XA (HEPARIN LEVEL)on HEPARIN UNFRACTIONATED (U/ML) IN PPP BY CHROMOGENIC METHOD <0.10 Invalid Interpretation Code 0.3-0.7 [facility] Comment on above: Order Comment: Check anti-Xa level every 6 hours while on heparin infusion, or per protocol. Result Comment: [place] roxaban and Apixaban will interfere with the anti Xa assay used to monitor UFH and LMWH. Performed By: #### L [id number] #### [facility] ([facility]) [address] [place] [address] APTTon 07-19-2023 ACTIVATED PARTIAL THROMBOPLASTIN TIME IN PPP BY COAGULATION ASSAY 29.1 Seconds Normal 25.0-35.0 [facility] Comment on above: Order Comment: Basel ine aPTT before initiating heparin infusion. Result Comment: Clin ical significance of the APTT is questionable in the presence of heparin. Performed By: #### L [id number] ####[facility] ([facility])[address] [place] [address] CBC WITH AUTO DIFFERENTIALon 07-19-2023 Basophils (Bld) [#/Vol] 0.07 10*3/uL Normal 0.00-0.20 [facility] Comment on above: Performed By: #### L [id number] #### [facility] ([facility]) [address] [place] [address] Basophils/100 WBC (Bld) 1.1 % High 0.0-1.0 [facility] Comment on above: Performed By: #### L [id number] #### [facility] ([facility]) [address] [place] [address] Eosinophils (Bld) [#/Vol] 0.10 10*3/uL Normal 0.00-0.50 [facility] Comment on above: Performed By: #### L [id number] #### [facility] ([facility]) [address] [place] [address] Eosinophils/100 WBC (Bld) 1.6 % Normal 0.0-6.0 [facility] Comment on above: Performed By: #### L [id number] #### [facility] ([facility]) [address] [place] [address] Erythrocyte distribution width (RBC) [Ratio] 16.4 % High 11.5-15.0 [facility] Comment on above: Performed By: #### L [id number] #### [facility] ([facility]) [address] [place] [address] ERYTHROCYTE MEAN CORPUSCULAR HEMOGLOBIN CONCENTRATION (G/DL) BY AUTOMATED 31.8 g/dL Low 32.0-35.0 [facility] Comment on above: Performed By: #### L [id number] #### [facility] ([facility]) [address] [place] [address] Hematocrit (Bld) [Volume fraction] 35.5 % Low 36.0-48.0 [facility] Comment on above: Performed By: #### L [id number] #### [facility] ([facility]) [address] [place] [address] Hemoglobin (Bld) [Mass/Vol] 11.3 g/dL Low 12.0-15.0 [facility] Comment on above: Performed By: #### L [id number] #### [facility] ([facility]) [address] [place] [address] Immature granulocytes (Bld) [#/Vol] 0.02 10*3/uL Normal 0.00-0.20 [facility] Comment on above: Performed By: #### L [id number] #### [facility] (BEAKER) [address] [place] [id number] Immature granulocytes/100 WBC (Bld) 0.3 % Normal 0.0-1.0 [facility] Comment on above: Performed By: #### L [id number] #### [facility] ([facility]) [address] [place] [address] Lymphocytes (Bld) [#/Vol] 1.76 10*3/uL Normal 1.20-4.00 [facility] Comment on above: Performed By: #### L [id number] #### [facility] ([facility]) [address] [place] [address] Lymphocytes/100 WBC (Bld) 28.5 % Normal 20.0-45.0 [facility] Comment on above: Performed By: #### L [id number] #### [facility] ([facility]) [address] [place] [address] MCH (RBC) [Entitic mass] 26.9 pg Low 27.0-33.0 [facility] Comment on above: Performed By: #### L [id number] #### [facility] ([facility]) [address] [place] [address] MCV (RBC) [Entitic vol] 84.5 fL Normal 82.0-98.0 [facility] Comment on above: Performed By: #### L [id number] #### [facility] ([facility]) [address] [place] [address] Monocytes (Bld) [#/Vol] 0.48 10*3/uL Normal 0.10-1.00 [facility] Comment on above: Performed By: #### L [id number] #### [facility] ([facility]) [address] [place] [address] Monocytes/100 WBC (Bld) 7.8 % Normal 5.0-12.0 [facility] Comment on above: Performed By: #### L [id number] #### [facility] ([facility]) [address] [place] [address] Neutrophils (Bld) [#/Vol] 3.74 10*3/uL Normal 1.60-7.60 [facility] Comment on above: Performed By: #### L [id number] #### [facility] ([facility]) [address] [place] [address] Neutrophils/100 WBC (Bld) 60.7 % Normal 40.0-72.0 [facility] Comment on above: Performed By: #### L [id number] #### [facility] ([facility]) [address] [place] [address] NRBC (PER 100 WBCS) BY AUTOMATED COUNT 0.0 % Normal 0 [facility] Comment on above: Performed By: #### L [id number] #### [facility] ([facility]) [address] [place] [address] PLATELETS (10*3/UL) IN BLOOD AUTOMATED COUNT 289 10*3/uL Normal 150-400 [facility] Comment on above: Performed By: #### L [id number] #### [facility] ([facility]) [address] [place] [address] RBC (Bld) [#/Vol] 4.20 10*6/uL Normal 3.80-5.00 [facility] Comment on above: Performed By: #### L [id number] #### [facility] ([facility]) [address] [place] [address] WBC (Bld) [#/Vol] 6.17 10*3/uL Normal 4.00-10.60 [facility] Comment on above: Performed By: #### L [id number] #### [facility] ([facility]) [address] [place] [address] COMPREHENSIVE METABOLIC PANE Oscar 07-19-2023 Albumin [Mass/Vol] 3.7 g/dL Normal 3.5-5.7 [facility] Comment on above: Performed By: #### L [id number] #### [facility] ([facility]) [address] [place] [address] ALP [Catalytic activity/Vol] 132 U/L High 34-104 [facility] Comment on above: Performed By: #### L [id number] #### [facility] ([facility]) [address] [place] [address] ALT [Catalytic activity/Vol] 17 U/L Normal 7-52 [facility] Comment on above: Performed By: #### L [id number] #### [facility] ([facility]) [address] [place] [address] Anion gap [Moles/Vol] 11 mmol/L Normal 7-20 [facility] Comment on above: Performed By: #### L [id number] #### [facility] ([facility]) [address] [place] [address] AST [Catalytic activity/Vol] 23 U/L Normal 13-39 [facility] Comment on above: Performed By: #### L [id number] #### [facility] ([facility]) [address] [place] [address] Bilirubin [Mass/Vol] 0.9 mg/dL Normal 0.3-1.0 [facility] Comment on above: Performed By: #### L [id number] #### [facility] ([facility]) [address] [place] [address] Calcium [Mass/Vol] 10.7 mg/dL High 8.6-10.3 [facility] Comment on above: Performed By: #### L [id number] #### [facility] ([facility]) [address] [place] [address] Chloride [Moles/Vol] 104 mmol/L Normal 98-107 [facility] Comment on above: Performed By: #### L [id number] #### [facility] ([facility]) [address] [place] [address] CO2 [Moles/Vol] 28 mmol/L Normal 21-31 [facility] Comment on above: Performed By: #### L [id number] #### [facility] ([facility]) [address] [place] [address] Creatinine [Mass/Vol] 0.66 mg/dL Normal 0.60-1.20 [facility] Comment on above: Performed By: #### L [id number] #### [facility] ([facility]) [address] [place] [address] GLOMERULAR FILTRATION RATE ML/MIN/1.73 SQ M.PREDICTED 92.0 mL/min/1.73m*2 Normal >60.0 [facility] Comment on above: Result Comment: The [facility]???s estimated glomerular filtration rate (eGFR) will no [...] individuals. Performed By: #### L [id number] #### [facility] ([facility]) [address] [place] [address] Glucose [Mass/Vol] 131 mg/dL High 70-100 [facility] Comment on above: Performed By: #### L [id number] #### [facility] ([facility]) [address] [place] [address] Potassium [Moles/Vol] 3.5 mmol/L Normal 3.5-5.1 [facility] Comment on above: Performed By: #### L [id number] #### [facility] ([facility]) [address] [place] [address] Protein [Mass/Vol] 6.8 g/dL Normal 6.0-8.3 [facility] Comment on above: Performed By: #### L [id number] #### [facility] ([facility]) [address] [place] [address] Sodium [Moles/Vol] 139 mmol/L Normal 136-145 [facility] Comment on above: Performed By: #### L [id number] #### [facility] ([facility]) [address] [place] [address] Urea nitrogen [Mass/Vol] 15 mg/dL Normal 7-25 [facility] Comment on above: Performed By: #### L [id number] #### [facility] ([facility]) [address] [place] [address] UREA NITROGEN/CREATININE (MASS RATIO) IN SER/PLAS 22.7 Normal [facility] Comment on above: Performed By: #### L [id number] #### [facility] ([facility]) [address] [place] [address] [facility] 07-19-[address] [facility] Cardiology Clinic Note Chief Complaint: Patient [...] with ejection (more content not included)... Normal [facility] MAGNESIUMon 07-19-2023 Magnesium [Mass/Vol] 1.6 mg/dL Low 1.9-2.7 [facility] Comment on above: Performed By: #### L [id number] ####[facility] ([facility])[address] [place] [address] Office Visiton 07-19-2023 Follow-up visit [id number] Darek Mejía 1950 F Date Provider Department Center 07/19/2023 Areli-OPAL CARVALHO [facility] Family History Problem Relation Age of Onset Coronary artery disease Father Diabetes Father Family Status - Relation Status Age at Father Level of Service:33625 [place] OFFICE/OUTPATIENT ESTABLISHED HIGH MDM 40-54 MIN Normal [facility] T4, FREEon 07-19-2023 THYROXINE (T4) FREE (NG/DL) IN SER/PLAS 1.31 ng/dL Normal 0.71-1.85 [facility] Comment on above: Performed By: #### L [id number] #### [facility] ([facility]) [address] [place] [address] TSH3 REFLEX TO FT4on 023 THYROTROPIN (MIU/L) IN SER/PLAS BY DETECTION LIMIT <= 0.05 MIU/L 0.06 mIU/L Low 0.34-5.60 [facility] Comment on above: Performed By: #### L [id number] #### [facility] ([facility]) [address] [place] [address] 36on 07-02-2023 36 Sandy just did patien t's echo. She came over to the office to make us aware that she sounded like she was in afib, and patient didn't recall ever being told she had this. She did ECG. 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 Please advise. Thanks. [facility] Office Visiton 04-23-2023 Follow-up visit [id number] Darek Mejía 1950 F Date Provider Department Center 04/23/2023 271-OPAL CARVALHO MARIANA Roy Family History Problem Relation Age of Onset Coronary artery disease Father Diabetes Father Family Status - Relation Status Age at Father Level of Service:77623 [place] OFFICE/OUTPATIENT ESTABLISHED MOD MDM 30-39 MIN [facility] Office Visiton 01-31-2023 Follow-up visit [id number] Darek Mejía 1950 F Date Provider Department Center 01/31/2023 Brian-HAWA RUSH MARIANA Roy Family History Problem Relation Age of Onset Coronary artery disease Father Diabetes Father Family Status - Relation Status Age at Father Level of Service:67776 [place] OFFICE/OUTPATIENT ESTABLISHED MOD MDM 30-39 MIN [facility] 36on 01-11-2023 36 I am putting in a script for aldactone, then she needs BMP in 1 week to assess renal function and potassium level. Have her f/U in 2-4 weeks to review b/p please Normal [facility] Orders Onlyon 01-11-2023 Orders Only [id number] Darek Mejía 1950 F Date Provider Department Center 01/11/2023 HAWA BACA [facility] Family History Problem Relation Age of Onset Coronary artery disease Father Diabetes Father Family Status - Relation Status Age at Father Normal [facility] 36on 01-10-2023 35 . Normal [facility] Office Visiton 12-21-2022 Follow-up visit [id number] Darek Mejía 1950 F Date Provider Department Center 12/21/2022 HAWA BACA MARIANA [facility] Family History Problem Relation Age of Onset Coronary artery disease Father Diabetes Father Family Status - Relation Status Age at Father Level of Service:09637 [place] OFFICE/OUTPATIENT ESTABLISHED MOD MDM 30-39 MIN Reason for Visit and Comments: Coronary Artery Disease [187] Congestive Heart Failure [127] Hypertension [809158] Normal [facility] FREE T3on 11-30-2022 FREE T3 2.19 pg/mlL Normal 2.18-3.98 [facility] Comment on above: Performed By: #### T 4, FT3, TSH #### [facility] [address] [address] [address] Rich Pham T4on 11-30-2022 T4 [Mass/Vol] 11.10 ug/dL Normal 4.80-13.90 [facility] Comment on above: Performed By: #### T 4, FT3, TSH #### [facility] [address] [address] [address] Rich Pham TSHon 11-30-2022 TSH 0.525 uIU/mL Normal 0.358-3.740 [facility] Comment on above: Performed By: #### T 4, FT3, TSH #### [facility] [address] [address] [address] Rich Pham ANES POSTPROC EVALon 023 ANES POSTPROC EVAL HNO ID: [id number] Author: David Dunn II, DO Service: Anesthesiology Author Type: Anesthesiologist Type: Anesthesia Postprocedure Evaluation Filed: 11/01/2022 12:35 PM Note Text: POST ANESTHESIA EVALUATION NOTE : 1950 Procedure Summary Date: 11/01/22 Room / Location: [address] Anesthesia Start: 1109 Anesthesia Stop: 1130 [...] November 01, 2022 TIME: 12:35 PM CSN: [id number] Normal [facility] ANES PRE-OPon 11-01-2022 ANES PRE-OP HNO ID: [id number] Author: David Dunn II, DO Service: Anesthesiology Author Type: Anesthesiologist Type: Anesthesia Preprocedure Evaluation Filed: 11/01/2022 10:15 AM Note Text: ANESTHESIOLOGY DAY OF SURGERY NOTE : 1950 Procedure Information Date/Time: 11/01/22 1100 Procedures: PHACOEMULSIFICATION CATARACT IMPLANT INTRAOCULAR LENS W/O ENDOSCOPIC CYCLOPHOTOCOAGULATION (Left: Eye) OPHTHALMIC BIOMETRY BY PARTIAL COHERENCE INTERFEROMETRY W/INTRAOCULAR LENS POWER CALCULATION (Left: Eye) Location: [address] Surgeons: Aleksandar Wilson V, MD Estimated body mass index is 21.31 kg/m? as calculated from the following: Height as of 10/30/22: 167.6 cm (5' 6 ). Weight as of 10/30/22: 59.9 kg (132 lb). 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 Patient / Responsible Republican agrees to proceed: yes Patient / Surrogate [...] November 01, 2022 TIME: 10:09 AM CSN: [id number] [facility] OPERATIVE NOon 11-01-2022 OPERATIVE NO HNO ID: [id number] Author: Aleksandar Wilson V, MD Service: Ophthalmology Author Type: Physician Type: Operative Report Filed: 11/01/2022 11:43 AM Note Text: OPERATIVE REPORT DATE OF SERVICE: November 01, 2022 PRIMARY SURGEON: Aleksandar Wilson M.D. 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 The [...] Implant Name Type Inv. Item Serial No. Supervisor [employer] Lot No. LRB No. Used Action Model No. LENS IOL 0D +21 [employer] - [id number] Intraocular Lens LENS IOL 0D +21 [employer] [id number] [employer] Left 1 Implanted [id number] [...] 11:26 AM - Comanage with Dr Mccollum; [facility] POD #1 Aleksandar WILSON MD Normal [facility] FREE T3on 10-30-2022 FREE T3 2.77 pg/mlL Normal 2.18-3.[address] [facility] Comment on above: Performed By: #### F T3, TSH, BNP, T4 #### [facility] [address] [place] [address] Dr. Rich Pham HISTORY PHYSICALon 3 HISTORY PHYSICAL HNO ID: [id number] Author: Apple Gomez APRN.MORTEZA Service: ? Author [...] ACTIVE PROBLEM LIST Smoking Addiction Atherosclerosis of [place] Coronary Artery of [place] Heart Without Angina Pectoris Mild Left Ventricular Systolic Dysfunction Primary Hypertension Coronary Artery Disease Involving Coronary Bypass Graft of [place] Heart With Angina Pectoris (Hcc) Atelectasis [...] OF URETHRAL STRICT HEART CATHETERIZATION 2004 at [facility] HX MASTECTOMY [...] fevers. Neuro: No history of TIA's, stroke, SCREEN CLEANER tumor, impaired sensorium, (more content not included)... Normal [facility] T4on 10-30-2022 T4 [Mass/Vol] 3.40 ug/dL Critically low 4.80-13.90 [facility] Comment on above: Performed By: #### F T3, TSH, BNP, T4 #### [facility] [address] [address] [address] Rich Pham TSHon 10-30-2022 TSH 2.102 uIU/mL Normal 0.358-3.740 [facility] Comment on above: Performed By: #### F T3, TSH, BNP, T4 #### [facility] [address] [place], [place] [id number] Dr. Rich Pham CNPNon 10-18-2022 CNPN Telephone ([place]) DAREK MEJÍA ([id number]) 1950 F Date Time Provider Department 10/18/[id number] During your visit today, we recorded [...] Resolved Smoking addiction [F17.200] 06/22/2015 Atherosclerosis of [place] coronary artery of na*06/22/2015 Mild left ventricular [...] Status:Closed by HAVEN MORENO on 10/18/22 Normal [facility] FREE T3on 08-30-2022 FREE T3 1.95 pg/mlL Critically low 2.18-3.98 [facility] Comment on above: Performed By: #### F T3, TSH, BNP, T4 #### [facility] [address] [place] [address] Dr. Rich Pham T4on 08-30-2022 T4 [Mass/Vol] 8.00 ug/dL Normal 4.80-13.90 [facility] Comment on above: Performed By: #### F T3, TSH, BNP, T4 #### [facility] [address] [place], [place] [address] Dr. Rich Pham TSHon 08-30-2022 TSH 3.033 uIU/mL Normal 0.358-3.740 [facility] Comment on above: Performed By: #### F T3, TSH, BNP, T4 #### [facility] [address] [place], [place] [address] Dr. Rich Pham ECHOCARDIO M/2D COMPLETEon 1 10-17-2021 ECHOCARDIO M/2D COMPLETE Patient: DAREK MEJÍA Exam Date: 08/16/2022 : 1950 Gender:F Ordering : HAWA RUSH Admission #: [id number] Family : DR KAYLEIGH GAY . Order #: [id number] CLICK HERE TO VIEW EXAM ECHOCARDIOGRAM REPORT [...] M.D. on 08/18/2022 at 16:[address] [facility] BNPon 07-24-2022 Natriuretic peptide B (Bld) [Mass/Vol] 1535.0 pg/mL Critically high <=900.[address] [facility] Comment on above: Performed By: #### F T3, TSH, BNP, T4 #### [facility] [address] [place] [address] Dr. Rich Pham FREE T3on 07-24-2022 FREE T3 1.90 pg/mlL Critically low 2.18-3.98 [facility] Comment on above: Performed By: #### F T3, TSH, BNP, T4 #### [facility] [address] [place] [address] Dr. Rich Pham T4on 07-24-2022 T4 [Mass/Vol] 9.10 ug/dL Normal 4.80-13.90 [facility] Comment on above: Performed By: #### F T3, TSH, BNP, T4 #### [facility] [address] [place] [address] Dr. Rich Pham TSHon 07-24-2022 TSH 1.057 uIU/mL Normal 0.358-3.740 [facility] Comment on above: Performed By: #### F T3, TSH, BNP, T4 #### [facility] [address] [place] [address] Dr. Rich Pham INSULINon 06-20-2022 Insulin 7.0 uIU/mL Normal 2.6-24.[address] [facility] Comment on above: Performed By: #### F T3, TSH, BNP, T4 #### [facility] [address] [place] [address] Dr. Rich Pham BNPon 06-19-2022 Natriuretic peptide B (Bld) [Mass/Vol] 962.0 pg/mL Critically high <=900.0 [facility] Comment on above: Performed By: #### F T3, TSH, BNP, T4 #### [facility] [address] [place] [address] Dr. Rich Pham CBC AUTO DIFFon 06-19-2022 BASO # 0.1 103/ul Normal 0.0-0.1 [facility] Comment on above: Performed By: #### F T3, TSH, BNP, T4 #### [facility] [address] [place] [address] Dr. Rich Pham Basophils/100 WBC (Bld) 1.3 % Normal 0.2-2.0 [facility] Comment on above: Performed By: #### F T3, TSH, BNP, T4 #### [facility] [address] [place] [address] Dr. Rich Pham EO # 0.1 103/ul Normal 0.0-0.[address] [facility] Comment on above: Performed By: #### F T3, TSH, BNP, T4 #### [facility] [address] [place] [address] Dr. Rich Pham Eosinophils/100 WBC (Bld) 1.9 % Normal 0.9-7.0 [facility] Comment on above: Performed By: #### F T3, TSH, BNP, T4 #### [facility] [address] [place] [address] Dr. Rich Pham Erythrocyte distribution width (RBC) [Ratio] 13.7 % Normal 11.0-15.[address] [facility] Comment on above: Performed By: #### F T3, TSH, BNP, T4 #### [facility] [address] [place] [address] Dr. Rich Pham Hematocrit (Bld) [Volume fraction] 39.5 % Normal 36.0-48.[address] [facility] Comment on above: Performed By: #### F T3, TSH, BNP, T4 #### [facility] [address] [place] [address] Dr. Rich Pham Hemoglobin (Bld) [Mass/Vol] 12.7 g/dL Normal 12.0-16.0 [facility] Comment on above: Performed By: #### F T3, TSH, BNP, T4 #### [facility] [address] [place] [address] Dr. Rich Pham IG # 0.03 10e3/ul Normal 0.00-0.03 [facility] Comment on above: Performed By: #### F T3, TSH, BNP, T4 #### [facility] [address] [place] [address] Dr. Rich Pham IG % 0.4 % Normal 0.0-0.5 [facility] Comment on above: Performed By: #### F T3, TSH, BNP, T4 #### [facility] [address] [place] [address] Dr. Rich Pham LYMPH # 2.5 103/ul Normal 1.2-3.8 [facility] Comment on above: Performed By: #### F T3, TSH, BNP, T4 #### [facility] [address] [place] [address] Dr. Rich Pham Lymphocytes/100 WBC (Bld) 32.8 % Normal 20.5-60.0 [facility] Comment on above: Performed By: #### F T3, TSH, BNP, T4 #### [facility] [address] [place] [address] Dr. Rich Pham MANUAL DIFF REQ NO Normal [facility] Comment on above: Performed By: #### F T3, TSH, BNP, T4 #### [facility] [address] [place] [address] Dr. Rich Pham MCH (RBC) [Entitic mass] 28.5 pg Normal 26.7-34.0 [facility] Comment on above: Performed By: #### F T3, TSH, BNP, T4 #### [facility] [address] [place] [address] Dr. Rich Pham MCHC (RBC) [Mass/Vol] 32.2 g/dL Normal 29.9-35.[address] [facility] Comment on above: Performed By: #### F T3, TSH, BNP, T4 #### [facility] [address] [place] [address] Dr. Rich Pham MCV (RBC) [Entitic vol] 88.6 fL Normal 81.0-99.[address] [facility] Comment on above: Performed By: #### F T3, TSH, BNP, T4 #### [facility] [address] [place] [address] Dr. Rich Pham MONO # 0.6 103/ul Normal 0.3-0.[address] [facility] Comment on above: Performed By: #### F T3, TSH, BNP, T4 #### [facility] [address] [place] [address] Dr. Rich Pham Monocytes/100 WBC (Bld) 7.6 % Normal 1.7-12.[address] [facility] Comment on above: Performed By: #### F T3, TSH, BNP, T4 #### [facility] [address] [place] [address] Dr. Rich Pham NEUT # 4.2 103/ul Normal 1.4-6.[address] [facility] Comment on above: Performed By: #### F T3, TSH, BNP, T4 #### [facility] [address] [place] [address] Dr. Rich Pham Neutrophils/100 WBC (Bld) 56.0 % Normal 43.0-75.[address] [facility] Comment on above: Performed By: #### F T3, TSH, BNP, T4 #### [facility] [address] [place] [address] Dr. Rich Pham Platelet mean volume (Bld) [Entitic vol] 10.4 fL Normal 9.5-13.[address] [facility] Comment on above: Performed By: #### F T3, TSH, BNP, T4 #### [facility] [address] [place] [address] Dr. Rich Pham PLT 253 103/ul Normal 150-[address] [facility] Comment on above: Performed By: #### F T3, TSH, BNP, T4 #### [facility] [address] [place], [place] [address] Dr. Rich Pham RBC 4.46 106/ul Normal 4.20-5.40 [facility] Comment on above: Performed By: #### F T3, TSH, BNP, T4 #### [facility] [address] [place], [place] [address] Dr. Rich Pham WBC 7.5 103/ul Normal 4.0-11.0 [facility] Comment on above: Performed By: #### F T3, TSH, BNP, T4 #### [facility] [address] [place], [place] [address] LUNG CANCER SCREENINGon [...] VASU EVANS Date: 2022-06-19 21:[address] [facility] FREE THYROXINE INDEX T7on FTI 2.24 Normal 1.30-4.50 [facility] Comment on above: Performed By: #### F T3, TSH, BNP, T4 #### [facility] [address] [place] [address] [address] Rich Pham T3U 33.0 % Normal 30.0-39.0 [facility] Comment on above: Performed By: #### F T3, TSH, BNP, T4 #### [facility] [address] [place] [address] [address] Rich Pham T4 [Mass/Vol] 6.80 ug/dL Normal 4.80-13.90 [facility] Comment on above: Performed By: #### F T3, TSH, BNP, T4 #### [facility] [address] [place] [address] [address] Rich Pham GLYCOHEMOGLOBIN A1Con 2021 ADA RECOMMENDATION SEE BELOW Normal [facility] Comment on above: Result Comment: ADA RECOMMENDED LIMIT 4.0 - 6.0 ADA THERAPEUTIC TARGET < 7.0 ACTION SUGGESTED > 7.0 Performed By: #### F T3, TSH, BNP, T4 #### [facility] [address] [place] [address] [address] Rich Pham Glucose [Mass/Vol] 117 mg/dL Normal [facility] Comment on above: Performed By: #### F T3, TSH, BNP, T4 #### [facility] [address] [place] [address] [address] Rich Pham HbA1c (Bld) [Mass fraction] 5.7 % Normal 4.5-6.2 [facility] Comment on above: Performed By: #### F T3, TSH, BNP, T4 #### [facility] [address] [place] [address] [address] Rich Pham IRONon 06-19-2022 Iron [Mass/Vol] 50.0 ug/dL Normal 50.0-170.0 [facility] Comment on above: Performed By: #### I IAM HARO #### [facility] [address] [place] [address] [address] Rich Pham LIPID PROFILEon 06-19-2022 CHOL-HDL RATIO NORM SEE BELOW Normal [facility] Comment on above: Result Comment: 3.3 - 4.4 LOW RISK 4.4 - 7.1 AVERAGE RISK 7.1 - 11.0 MODERATE RISK >11.0 HIGH RISK Performed By: #### F T3, TSH, BNP, T4 #### [facility] [address] [place] [address] [address] Rich Pham Cholesterol [Mass/Vol] 142 mg/dL Normal <=200 [facility] Comment on above: Performed By: #### F T3, TSH, BNP, T4 #### [facility] [address] [place] [address] [address] Rich Pham Cholesterol in HDL [Mass/Vol] 52 mg/dL Normal 40-60 [facility] Comment on above: Performed By: #### F T3, TSH, BNP, T4 #### [facility] [address] [place] [address] [address] Rich Pham Cholesterol in LDL [Mass/Vol] 78.8 mg/dL Normal [facility] Comment on above: Performed By: #### F T3, TSH, BNP, T4 #### [facility] [address] [place] [address] [address] Rich Pham Cholesterol.total/Ch olesterol in HDL [Mass ratio] 2.7 {ratio} Normal [facility] Comment on above: Performed By: #### F T3, TSH, BNP, T4 #### [facility] [address] [place] [address] [address] Rich Pham HDL NORMAL > or = 60 mg/dl - LO W CARDIOVASCULAR RISK <40 mg/dl - HIGH CARDIOVASCULAR RISK Normal [facility] Comment on above: Performed By: #### F T3, TSH, BNP, T4 #### [facility] [address] [place] [address] [address] Rich Pham LDL CALC NORMAL SEE BELOW Normal [facility] Comment on above: Result Comment: <100 mg/dl OPTIMAL 100 - 129 mg/dl NEAR OR ABOVE OPTIMAL 130 - 159 mg/dl BORDERLINE HIGH 160 - 189 mg/dl HIGH >190 mg/dl VERY HIGH Performed By: #### F T3, TSH, BNP, T4 #### [facility] [address] [place] [address] [address] Rich Pham Triglyceride [Mass/Vol] 56 mg/dL Normal <=150 [facility] Comment on above: Performed By: #### F T3, TSH, BNP, T4 #### [facility] [address] [place] [address] [address] Rich Pham VLDL CALC 11.2 mg/dL Normal [facility] Comment on above: Performed By: #### F T3, TSH, BNP, T4 #### [facility] [address] [place] [address] [address] Rich Pham PROF 14(COMP METB)on 022 Albumin [Mass/Vol] 3.5 g/dL Normal 3.4-5.0 [facility] Comment on above: Performed By: #### F T3, TSH, BNP, T4 #### [facility] [address] [place] [address] Dr. Rich Pham Albumin/Globulin [Mass ratio] 0.9 {ratio} Normal [facility] Comment on above: Performed By: #### F T3, TSH, BNP, T4 #### [facility] [address] [place] [address] [address] Rich Pham ALP [Catalytic activity/Vol] 95 U/L Normal 46-116 [facility] Comment on above: Performed By: #### F T3, TSH, BNP, T4 #### [facility] [address] [place] [address] Dr. Rich Pham ALT [Catalytic activity/Vol] 22 U/L Normal 14-59 [facility] Comment on above: Performed By: #### F T3, TSH, BNP, T4 #### [facility] [address] [place] [address] [address] Rich Pham Anion gap [Moles/Vol] 11.3 mmol/L Normal [facility] Comment on above: Performed By: #### F T3, TSH, BNP, T4 #### [facility] [address] [place] [address] [address] Rich Pham AST [Catalytic activity/Vol] 21 U/L Normal 15-37 [facility] Comment on above: Performed By: #### F T3, TSH, BNP, T4 #### [facility] [address] [place] [address] Dr. Rich Pham Bilirubin [Mass/Vol] 0.4 mg/dL Normal 0.2-1.0 [facility] Comment on above: Performed By: #### F T3, TSH, BNP, T4 #### [facility] [address] [place] [address] Dr. Rich Pham Calcium [Mass/Vol] 10.4 mg/dL Critically high 8.5-10.1 [facility] Comment on above: Performed By: #### F T3, TSH, BNP, T4 #### [facility] [address] [place] [address] Dr. Rich Pham Chloride [Moles/Vol] 105 mmol/L Normal 98-107 [facility] Comment on above: Performed By: #### F T3, TSH, BNP, T4 #### [facility] [address] [place] [address] Dr. Rich Pham CO2 [Moles/Vol] 27.8 mmol/L Normal 21.0-32.0 [facility] Comment on above: Performed By: #### F T3, TSH, BNP, T4 #### [facility] [address] [place] [address] Dr. Rich Pham Creatinine [Mass/Vol] 0.94 mg/dL Normal 0.55-1.02 [facility] Comment on above: Performed By: #### F T3, TSH, BNP, T4 #### [facility] [address] [place] [address] Dr. Rich Pham EGFR-AF ALGERIAN >60 Normal >=60 [facility] Comment on above: Performed By: #### F T3, TSH, BNP, T4 #### [facility] [address] [place] [address] Dr. Rich Pham EGFR-NON AF ALGERIAN 58 mL/min/1.73m2 Critically low >=60 [facility] Comment on above: Performed By: #### F T3, TSH, BNP, T4 #### [facility] [address] [place] [address] Dr. Rich Pham Globulin (S) [Mass/Vol] 3.9 g/dL Normal [facility] Comment on above: Performed By: #### F T3, TSH, BNP, T4 #### [facility] [address] [place] [address] [address] Rich Pham Glucose [Mass/Vol] 94 mg/dL Normal 74-[address] [facility] Comment on above: Performed By: #### F T3, TSH, BNP, T4 #### [facility] [address] [place] [address] Dr. Rich Pham Potassium [Moles/Vol] 4.1 mmol/L Normal 3.5-5.[address] [facility] Comment on above: Performed By: #### F T3, TSH, BNP, T4 #### [facility] [address] [place] [address] Dr. Rich Pham Protein [Mass/Vol] 7.4 g/dL Normal 6.4-8.[address] [facility] Comment on above: Performed By: #### F T3, TSH, BNP, T4 #### [facility] [address] [place] [address] Dr. Rich Pham Sodium [Moles/Vol] 140 mmol/L Normal 136-[address] [facility] Comment on above: Performed By: #### F T3, TSH, BNP, T4 #### [facility] [address] [place] [address] Dr. Rich Pham Urea nitrogen [Mass/Vol] 15.0 mg/dL Normal 7.0-18.[address] [facility] Comment on above: Performed By: #### F T3, TSH, BNP, T4 #### [facility] [address] [place] [address] Dr. Rich Pham Urea nitrogen/Creatinine [Mass ratio] 16.0 mg/mg Normal [facility] Comment on above: Performed By: #### F T3, TSH, BNP, T4 #### [facility] [address] [place] [address] Dr. Rich Pham TSHon 06-19-2022 TSH 6.083 uIU/mL Critically high 0.358-3.740 [facility] Comment on above: Performed By: #### F T3, TSH, BNP, T4 #### [facility] [address] [place] [address] Dr. Rich Pham VITAMIN D 25 OHon 06-19-2022 VIT D 25-OH 41.3 ng/mL Normal [facility] Comment on above: Performed By: #### F T3, TSH, BNP, T4 #### [facility] [address] [place] [address] Dr. Rich Pham VIT D RANGES SEE BELOW Normal [facility] Comment on above: Result Comment: <20 ng/mL Vit D deficient 20 - <30 ng/mL Vit D insufficient 30 - 100 ng/mL Vit D sufficient >100 ng/mL Potential Toxicity Performed By: #### F T3, TSH, BNP, T4 #### [facility] [address] [place] [address] Dr. Rich Pham PROF CHEM 8 (BAS METB)on Anion gap [Moles/Vol] 11.9 mmol/L Normal [facility] Comment on above: Performed By: #### F T3, TSH, BNP, T4 #### [facility] [address] [place] [address] Dr. Rich Pham Calcium [Mass/Vol] 9.9 mg/dL Normal 8.5-10.1 [facility] Comment on above: Performed By: #### F T3, TSH, BNP, T4 #### [facility] [address] [place] [address] Dr. Rich Pham Chloride [Moles/Vol] 101 mmol/L Normal 98-107 [facility] Comment on above: Performed By: #### F T3, TSH, BNP, T4 #### [facility] [address] [place] [address] Dr. Rich Pham CO2 [Moles/Vol] 30.0 mmol/L Normal 21.0-32.0 [facility] Comment on above: Performed By: #### F T3, TSH, BNP, T4 #### [facility] [address] [place] [address] Dr. Rich Pham Creatinine [Mass/Vol] 1.10 mg/dL Critically high 0.55-1.02 [facility] Comment on above: Performed By: #### F T3, TSH, BNP, T4 #### [facility] [address] [place] [address] [address] Rich Pham EGFR-AF ALGERIAN 59 mL/min/1.73m2 Critically low >=60 [facility] Comment on above: Performed By: #### F T3, TSH, BNP, T4 #### [facility] [address] [place] [address] [address] Rich Pham EGFR-NON AF ALGERIAN 49 mL/min/1.73m2 Critically low >=60 [facility] Comment on above: Performed By: #### F T3, TSH, BNP, T4 #### [facility] [address] [place] [address] Dr. Rich Pham Glucose [Mass/Vol] 115 mg/dL Critically high 74-106 [facility] Comment on above: Performed By: #### F T3, TSH, BNP, T4 #### [facility] [address] [place] [address] [address] Rich Pham Potassium [Moles/Vol] 3.9 mmol/L Normal 3.5-5.1 [facility] Comment on above: Performed By: #### F T3, TSH, BNP, T4 #### [facility] [address] [place] [address] Dr. Rich Pham Sodium [Moles/Vol] 139 mmol/L Normal 136-145 [facility] Comment on above: Performed By: #### F T3, TSH, BNP, T4 #### [facility] [address] [place] [address] [address] Rich Pham Urea nitrogen [Mass/Vol] 15.0 mg/dL Normal 7.0-18.0 [facility] Comment on above: Performed By: #### F T3, TSH, BNP, T4 #### [facility] [address] [place] [address] Dr. Rich Pham Urea nitrogen/Creatinine [Mass ratio] 13.6 mg/mg Normal [facility] Comment on above: Performed By: #### F T3, TSH, BNP, T4 #### [facility] [address] [place] [address] Dr. Rich Pham FLUORO FOR SURGICAL PROCEDUR [...] Juvenal Cagle MD 04/10/19 Final result Normal [facility] Surgical Specimenon 04-10-20 19 Surgical Specimen [facility] [address] [place] [address] FINAL SURGICAL PATHOLOGY REPORT Patient Name: DAREK MEJÍA Accession No: [id number] Age Sex: 1950 Location: PSYCHIATRIC Account No: [id number] Collected: 04/10/2019 Med Rec No: [id number] Received: 04/10/2019 Attend Phys: ESTEBAN LÓPEZ Completed: [...] in one cassette after decalcification. JAZZY/CHRISTY CPT: 70748 X1 42026 X1 MICHELLE PEREZ M.D. 04/15/2019 Electronically signed out by Page 1 of 1 [facility] Comment on above: Performed By: #### S UR #### [place] [address] Type and Screen Capture 3 sc rn cellon 04-10-2019 Type and Screen Capture 3 scrn cell PATIENT: MICAELA OSWALD LOC: [facility] NON BILL# : [id number] : 1950 SEX: F ORDERED BY: DAVIN MERCEDES ORDERED : 04/10/2019 06:22 COLLECTED: 04/10/2019 07:21 ORDER : [id number] RECEIVED : 04/10/2019 07:21 --------- TEST NAME RESULT UNITS RANGES ABN FL ST ABOR Capture A POS F Antibody 3 Cell Scrn Captu NEG F -------- Normal [facility] Comment on above: Performed By: #### T S3C #### [place] [id number] CARDIAC STRESS TESTon 2018 [place] [address] CARDIAC STRESS TEST PATIENT NAME: DAREK MEJÍA : 1950 MED REC NO: [id number] ROOM: ACCOUNT NO: [id number] ADMIT DATE: 03/31/2019 PROVIDER: Marli Cox DO [...] function. MARLI COX DO #14:19:36 [id number] Doc#: [id number] CC: Normal [facility] Coding Summary.on 01-30-2019 Coding Summary. CODING DATE: FINAL [facility] STATUS: Home (Routine DC) PAYOR: Medicare ADMIT DX: REASON FOR VISIT DX: M54.2 Cervicalgia M25.512 Pain in left shoulder FINAL DX: PRINCIPAL: M50.30 Other cervical disc degeneration, unspecified cervical region SECONDARY: M50.20 Other cervical disc displacement, unspecified cervical region M54.12 Radiculopathy, cervical region M48.02 Spinal stenosis, cervical region Z79.899 Other jail (current) drug therapy PROCEDURES DOCTOR NAME DATE NOTE: The code number assigned matches the documented diagnosis and / or procedure in the patient's chart. However, the narrative phrase printed from the coding software may appear abbreviated, or result in slightly different terminology. Coded By: Linh Devlin CphT Date Saved: 01/30/2019 10:45 am [facility] Coding Summary.on 01-29-2019 Coding Summary. CODING DATE: FINAL [facility] STATUS: Home (Routine DC) PAYOR: Medicare APC DESCRIPTION 5442 Level 2 Nerve Injections ADMIT DX: REASON FOR VISIT DX: M54.12 Radiculopathy, cervical region FINAL DX: PRINCIPAL: M54.12 Radiculopathy, cervical region SECONDARY: F17.210 Nicotine dependence, cigarettes, uncomplicated Z79.82 custodial (current) use of aspirin Z95.1 Presence of [...] Velasquez Date Saved: 01/29/2019 08:16 am Normal [facility] Main OR Intraoperative Recor don 01-28-2019 Main OR Intraoperative Record IntraOp Document Type FTPM Summary Primary Physician: Cain Rowley MD Finalized Date/Time: 01/28/19 07:58:26 Pt. Name: DAREK MEJÍA /Sex: 1950 Female Med Rec #: [id number] Physician: Cain Rowley MD Financial #: [id number] Pt. Type: P Room/Bed: / Admit/Disch: 01/28/19 [...] Role Performed Anesthesiologist of Surgeon - Primary Jewel Lathe Operator - Primary Record Time In 01/28/19 07:53:00 [...] Tamanna Sun RN, Aaron Donohue Role Performed Jewel Lathe Operator - Primary Scrub - Other Religion Department Chair Time In 01/28/19 07:53:00 01/28/19 07:53:00 01/28/19 [...] and tissue Entry 1 Skin Integrity Intact, Vidor, Warm, and Skin Abnormality No Dry Outcomes [...] Nettie Guthrie RN 01/28/19 07:58 Normal [facility] Main OR Preoperative Recordo n 01-28-2019 Main OR Preoperative Record Holding Area Document Type FTPM Summary Primary Physician: Cain Rowley MD Finalized Date/Time: 01/28/19 07:17:16 Pt. Name: DAREK MEJÍA /Sex: 1950 Female Med Rec #: [id number] Physician: Cain Rowley MD Financial #: [id number] Pt. Type: P Room/Bed: / Admit/Disch: 01/28/19 [...] 07:14 Melina Harper RN 01/28/19 07:17 Normal [facility] Operative Reporton 9 Operative Report [...] 96 mmHg SpO2 94 % . Normal [facility] Comment on above: Result Comment: [...] January 17, 2019 10:38 EDT Encounter info: [id number], [facility], Pain Management, 01/17/2019 - 01/17/2019 * Final [...] tid., # 180 tab(s), Refills(s) 0, Pharmacy: [facility] Documented Medications Documented NIFEdipine 30 mg [...] list: All Problems Smoker / SNOMED CT 448716248 / Confirmed Added secondary to documentation in [...] of motion. Normal strength. Integumentary: Warm, Dry, Vidor. Injection site well-healed Neurologic: Alert, Oriented. Psychiatric: [...] Electronically Co-Signed By: Amrik WADE, Cain Perla [facility] Comment on above: Result Comment: Elec [...] tid., # 180 tab(s), Refills(s) 0, Pharmacy: [facility] Documented Medications Documented NIFEdipine 30 mg [...] list: All Problems Smoker / SNOMED CT 328454214 / Confirmed Added secondary to documentation in [...] of motion. Normal strength. Integumentary: Warm, Dry, Vidor. Injection site well-healed Neurologic: Alert, Oriented. Psychiatric: [...] clinic with any interval questions or concerns. [facility] Comment on above: Result Comment: ERRO R - WRONG FOLDER Electronically Signed By: Marah Ferrell PA-C\.br\Date and Time Signed: 01/17/19 10:38 EDT\.br\Electronically Co-Signed By: Cain Rowley MD Coding Summary.on 12-31-2018 Coding Summary. CODING DATE: 019 FINAL [facility] STATUS: Home (Routine DC) PAYOR: Medicare [...] Teresa Velasquez Date Saved: 12/31/2018 02:30 pm [facility] Progress Note-Physicianon Progress Note-Physician Patient: DAREK [...] 21 tab(s), Refills(s) 0, Pharmacy: [facility] [place] [facility] gabapentin 300 mg Cap: See Instructions, increase dose as directed to 600 mg po tid., # 180 tab(s), Refills(s) 0, Pharmacy: [facility] Documented Medications Documented NIFEdipine 30 mg [...] list: All Problems Smoker / SNOMED CT 655993066 / Confirmed Added secondary to documentation in Social History. Histories Past Medical History: No active or resolved past medical history items have been selected or recorded., SMOKES TOBACCO Family History: No family history items have been selected or recorded. Procedure history: Mastectomy (8902293652). Hysterectomy (063303439). Cholecystectomy (00109305). CABG x 5 - Coronary artery bypass grafts x 5 (420547111). Social History Social & Psychosocial Habits Alcohol [...] and perfusion.. Gastrointestinal: Benign, nontender.. Integumentary: Warm, Vidor. Neurologic: PER PAIN CLINIC ASSESSMENT. Plan [place] [employer] Anesthesiologists (ASA) physical status classification: Class III. Anesthetic Preoperative Plan Anesthesia: Monitored anesthesia care. Anesthetic plan, risks, benefits, and alternatives discussed with the patient and/or family. Patient verbalized understanding. Informed consent was given. Communication: face to face with Pt educated on the importance of smoking cessation. [facility] Comment on above: Result Comment: Elec tronically Signed By: Stevie Linares Jr, DO\.br\Date and Time Signed: 12/31/18 15:15 EDT Main OR Intraoperative Recor don 12-30-2018 Main OR Intraoperative Record IntraOp Document Type FTPM Summary Primary Physician: Cain Rowley MD Finalized Date/Time: 12/30/18 08:22:53 Pt. Name: AYLA MEJÍAANETTE Joby/Sex: 1950 Female Med Rec #: [id number] Physician: Cain Rowley MD Financial #: [id number] Pt. Type: P Room/Bed: / Admit/Disch: 12/30/18 [...] Role Performed Anesthesiologist of Surgeon - Primary Jewel Lathe Operator - Primary Record Time In 12/30/18 08:15:00 [...] Performed Scrub - Primary Scrub - Other Religion Department Chair Time In 12/30/18 08:15:00 12/30/18 08:15:00 12/30/18 [...] and tissue Entry 1 Skin Integrity Intact, Vidor, Warm, and Skin Abnormality No Dry Outcomes [...] By: Nettie Guthrie RN 12/30/18 08:22 Normal [facility] Main OR Preoperative Recordo n 12-30-2018 Main OR Preoperative Record Holding Area Document Type FTPM Summary Primary Physician: Cain Rowley MD Finalized Date/Time: 12/30/18 07:39:27 Pt. Name: GMJOEDAREK/Sex: 1950 Female Med Rec #: [id number] Physician: Cain Rowley MD Financial #: [id number] Pt. Type: P Room/Bed: / Admit/Disch: 12/30/18 [...] By: Melina Harper RN 12/30/18 07:39 Normal [facility] Operative Reporton 9 Operative Report [...] 112 mmHg SpO2 98 % . Normal [facility] Comment on above: Result Comment: Elec tronically Signed By: Cain Rowley MD\.br\Date and Time Signed: 12/30/18 08:23 EDT Message - General Officeon 0 12-25-2018 Message - General Office From: James Eaton ([facility] Pain Roller Repairer) To: Cain Rowley MD; Sent: 12/19/2018 14:37:15 EDT Subject: Rx Patient called and said that she had been prescribed Gabapentin per her last care plan. She said it makes her sleepy and weak. She asked if she would be able to take something different. From: Marah Ferrell PA-C To: [facility] Nursing Inbox; Sent: 12/20/2018 09:18:44 EDT Subject: RE: Rx DC GPN, we can try lyrica if insurance mitzi cover it. Or just proceed with injection only and see if that helps. Please let me know what she would like to try. From: Elysia Mcrae ([facility] Nursing Inbox) To: [facility] Inbox; Sent: 12/20/2018 10:01:06 EDT Subject: pt to call back. called patient, left a message requesting a return telephone. From: Elysia Mcrae ([facility] Pain Nursing Inbox) To: Marah Ferrell PA-C; Sent: 12/20/2018 13:34:17 EDT Subject: RE: pt to call back. Patient called back and stated that she will d/c the gabapentin and will just wait for injection before trying the lyrica Received a request for prior authorization for the Gabapentin from [facility] From: Elva Moreno RN ([facility] Pain Nursing Inbox) To: [facility] Inbox; Sent: 12/23/2018 08:44:56 EDT Subject: Rx prior auth request Tried to call [facility] and they do not open until after 9 - will call to see if she picked this up (see notes below) and why we got this request. From: Elva Moreno RN ([facility] Nursing Inbox) To: Elva Moreno RN; Sent: 12/23/2018 10:51:16 EDT Subject: FW: Rx prior auth request Contacted [facility] and they confirm the patient filled this on the 17 of December - not sure why we got the request for Prior authoization, but since we will not be continuing this medication we will disregard the request. for PA. 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 [...] reviewed. From: Marah Ferrell PA-C To: [facility] Nursing Inbox; Sent: 12/25/2018 11:05:18 EDT Subject: RE: Intractable pain injection scheduled Sunday12/30/18 I can send a medrol dose pack in if she would like to use until the injection From: Elva Moreno RN ([facility] Nursing Inbox) To: [facility] Inbox; Sent: 12/25/2018 11:11:14 EDT Subject: FW: Intractable pain injection scheduled Sunday12/30/18 Due Date/Time: 12/25/2018 13:00:00 EDT Left voice mail for patient to call the office From: Elva Moreno RN ([facility] Nursing Inbox) To: Marah Ferrell PA-C; Sent: 12/25/2018 11:14:17 EDT Subject: Dose Pack On hold pending signature Order:methylPREDNISolon e (Medrol Dosepack 4 mg Tab) 1 packet(s) Oral As Directed as directed on package labeling Qty: 21 tab(s) Duration: 6 day(s) Refills: 0 Substitutions Allowed Route To Pharmacy - [facility] Patient returned call and states she will give it a try . Approved Order:methylPREDNISolon e (Medrol Dosepack 4 mg Tab) 1 packet(s) Oral As Directed as directed on package labeling Qty: 21 tab(s) Duration: 6 day(s) Refills: 0 Substitutions Allowed Route To Pharmacy - [facility] Signed by Marah Ferrlel PA-C 12/25/18 11:27:00 From: Marah Ferrell PA-C To: [facility] Pain Nursing Inbox; Sent: 12/25/2018 11:27:52 EDT Subject: RE: Dose Pack sent From: Jeevan LiuEnvelope Stamping Machine OperatorElysia Fitzgerald ([facility] Pain Nursing Inbox) To: [facility] Nursing Inbox; Sent: 12/25/2018 12:57:16 EDT Subject: RE: Dose Pack attempted to call patient, no answer and no voicemail From: Triny Woods ([facility] Pain Nursing Inbox) To: [facility] Pain Nursing Inbox; Sent: 12/25/2018 13:21:44 EDT Subject: RE: Dose Pack patient returned call I informed her prescription sent to pharmacy [facility] Consultation Noteon 12-25-19 Consultation Note [...] 600 mg three times per day. [place] [employer] Prescription Reporting System report was reviewed and is consistent with the previous medications prescribed. The patient will follow up two weeks after the injection to assess response and call the clinic with any questions or concerns. The patient agrees with plan of care. Cain Rowley M.D. lkr Dictated: 12/17/2018 #[id number] Typed: 12/19/2018 #[id number] cc: Angeles Aburto M.D. Timothy A Moore, MD [facility] Comment on above: Result Comment: Elec tronically Signed By: Cain Rowley MD\.br\Date and Time Signed: 12/24/18 13:15 EDT Message - General Officeon 0 12-23-2018 Message - General Office From: Sarah Laws To: [facility] Pain Roller Repairer; Sent: 12/17/2018 13:40:24 EDT Subject: Amrik-Medicare Aetna-ELENA-12/17/18 From: Thais Nieto ([facility] Pain Roller Repairer) To: [facility] Pain Clerical Inbox; Sent: 12/23/2018 13:33:03 EDT Subject: 2nd call Arleen Submitted prior auth online through [employer]. Medicare [employer]na approved auth #[id number] good 12/23/18 to 03/23/19. Called patient to schedule C6/7 MAUREEN no anesthesia Dx M54.12, patients number has been changed or disconnected called Ag on patients HIPAA no answer unable to leave a message. From: Thais Nieto ([facility] Pain Clerical Inbox) To: [facility] Pain Clerical Inbox; Sent: 12/23/2018 14:32:36 EDT Subject: RE: 2nd call Arleen Patient called back, scheduled procedure for 12/30/18, scheduled follow up for 01/17/19 at 10:10am. [facility] Coding Summary.on 12-20-2018 Coding Summary. CODING DATE: [facility] STATUS: Home (Routine DC) PAYOR: Medicare ADMIT DX: REASON FOR VISIT DX: M54.2 Cervicalgia FINAL DX: PRINCIPAL: M54.12 Radiculopathy, cervical region SECONDARY: M50.20 Other cervical disc displacement, unspecified cervical region M50.30 Other cervical disc degeneration, unspecified cervical region Z79.82 rodent exterminator (current) use of aspirin Z79.1 rodent exterminator (current) use of non-steroidal anti-inflammatories (NSAID) PROCEDURES DOCTOR NAME DATE NOTE: The code number assigned matches the documented diagnosis and / or procedure in the patient's chart. However, the narrative phrase printed from the coding software may appear abbreviated, or result in slightly different terminology. Coded By: Linh Devlin CphT Date Saved: 12/20/2018 01:35 pm [facility] Coding Summary.on 12-03-2018 Coding Summary. CODING DATE: [facility] STATUS: Home (Routine DC) PAYOR: [...] CphT Date Saved: 12/03/2018 01:31 pm [facility] Consultation Noteon 12-04-19 Consultation Note HOSPITAL [...] bypass surgery in July 2015 at the [facility] and she does smoke. REVIEW OF SYSTEMS: [...] injection. Stas Olvera MD s Dictated: 11/26/2018 #[id number] Typed: 12/03/2018 #[id number] cc: Kayleigh Gay M.D. Stas Olvera MD [facility] Comment on above: Result Comment: Elec tronically Signed By: Wade WADE, Stas Napier\.br\Date and Time Signed: 12/03/18 13:16 EDT History and Physicalon 12-11 HIM IP Note OR Communications Strategist [facility] OPERATIVE REPORTon 8 OPERATIVE REPORT [address] [address] OPERATIVE REPORTPATIENT NAME: DAREK MEJÍA : 1950MED REC NO: [id number] ROOM:ACCOUNT NO: [id number] ADMIT DATE: 12/11/2017PROVIDER: Dustin McmahonDATE OF PROCEDURE: [...] infollowup on 12/12/2017.DUSTIN MCMAHOND: 12/11/2017 11:14:16 CD/[id number]_TJob#: [id number] Doc#: [id number]: [facility] Op Noteon 12-11-2017 HIM IP Note OR Communications Strategist [facility] History and Physicalon 10-23 HIM IP Note OR Communications Strategist [facility] OPERATIVE REPORTon 8 OPERATIVE REPORT [address] [address] OPERATIVE REPORTPATIENT NAME: DAREK MEJÍA : [birth year]MED REC NO: [id number] ROOM:ACCOUNT NO: [id number] ADMIT DATE: 10/23/2017PROVIDER: Dustin McmahonDATE OF PROCEDURE: [...] days postoperatively.DUSTIN Ren DABBSD: 10/23/2017 11:29:16 ASHLYN/[id number]_IJob#: [id number] Doc#: [id number]: [facility] Op Noteon 10-23-2017 HIM IP Note OR Communications Strategist [facility] Progress Noteon 10-23-2017 HIM IP Note OR Communications Strategist [facility] HIM IP Note OR Communications Strategist [facility] No Panel Information [facility] Encounters Encounter Date Encounter Type Care Provider Facility Start: 10-23-2023 Orders Only Not In System Ref Prov [facility] Start: 10-11-2023 Orders Only Naomi Bautista RMA [facility] Comment on above: 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; Family history of colon cancer Start: 08-01-2023 End: 08-01-2023 ambulatory [facility] Start: 07-21-2023 Evaluation and management of inpatient [facility] Start: 07-20-2023 Evaluation and management of inpatient [facility] Start: 07-20-2023 Evaluation and management of inpatient [facility] Start: 07-20-2023 Evaluation and management of inpatient [facility] Start: 07-20-2023 Evaluation and management of inpatient [facility] Start: 07-19-2023 End: 07-22-2023 Evaluation and management of inpatient [facility] Start: 07-19-2023 End: 07-19-2023 ambulatory [facility] Start: 04-23-2023 End: 04-23-2023 [facility] Start: 01-31-2023 End: 01-31-2023 ambulatory [facility] Start: 12-21-2022 End: 12-21-2022 ambulatory [facility] Start: 11-30-2022 End: 12-01-[address] KAYLEIGH GAY . 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) Start: 08-15-2022 End: 08-15-2022 ambulatory ALEKSANDAR WILSON V Facility:[facility] Start: 08-15-2022 End: 08-15-2022 Patient encounter [...] End: 04-10-2019 Patient encounter procedure ESTEBAN LÓPEZ [facility] Start: 03-31-2019 End: 04-03-2019 Patient encounter procedure OLGA PARISI [facility] Start: 12-11-2017 End: 12-11-2017 Ambulatory DUSTIN Ren [facility] Start: 10-23-2017 End: 10-23-2017 Ambulatory DUSTIN Ren SALOME [facility] Start: 09-28-2017 End: 09-29-2017 Ambulatory DEFAULT PHYSICIAN Facility:[facility] Procedures Date Procedure Procedure Detail Performing Clinician Start: 10-10-2023 EGD / COLONOSCOPY Ruthie Oneill TILE APPLICATOR-GALLEY COOK Work Phone: Start: 10-10-2023 Level i surg [...] RT OLGA CHO Start: 04-10-2019 DISCHARGE PATIENT ELIDIA PARISI Start: [...] Author Start: 01-08-2025 LIPID SCREEN LIPID SCREEN [facility] Start: 08-15-2024 Adult BMI Screening Adult BMI Screening [facility] Start: 08-15-2024 Tobacco Screening Tobacco Screening [facility] Start: 05-04-2023 COVID-19 Vaccine ( season) COVID-19 Vaccine ( season) [facility] Start: 05-04-2023 Influenza vaccination Influenza Vaccine [facility] Start: 01-27-2023 DIABETES SCREEN DIABETES SCREEN [facility] Start: 09-03-2022 ADVANCE DIRECTIVE DISCUSSION ADVANCE DIRECTIVE DISCUSSION [facility] Start: 09-03-2022 DEPRESSION ASSESSMENT DEPRESSION ASSESSMENT [facility] Start: 05-04-2022 Influenza vaccination INFLUENZA (#1) [facility] Start: 09-13-2021 COVID-19 VACCINE (4 - Booster for Moderna series) COVID-19 VACCINE (4 - Booster for Moderna series) [facility] Start: 09-03-2021 ADVANCE DIRECTIVE DISCUSSION ADVANCE DIRECTIVE DISCUSSION [facility] Start: 09-03-2021 DEPRESSION ASSESSMENT DEPRESSION ASSESSMENT [facility] Start: 01-08-2021 Hepatitis B surface antibody level LDL CHOLESTEROL [facility] Start: 07-26-2016 PNEUMOCOCCAL: 65+ (2 - PCV) PNEUMOCOCCAL: 65+ (2 - PCV) [facility] Start: 2014 BONE DENSITY BONE DENSITY [facility] Start: 2014 Fall Risk Screening Fall Risk Screening [facility] Start: 1999 Administration of varicella zoster vaccine Zoster (Shingles) Vaccine (1 of 2) [facility] Start: 1999 SHINGRIX VACCINE (1 of 2) SHINGRIX VACCINE (1 of 2) [facility] Start: 1994 COLOGUARD (FIT-DNA) COLOGUARD (FIT-DNA) [facility] Start: 1994 Colonoscopy COLONOSCOPY [facility] Start: 1994 COLORECTAL CANCER SCREENING COLORECTAL CANCER SCREENING [facility] Start: [address] COLONOGRAPHY [facility] Start: 1994 FECAL OCCULT BLOOD FECAL OCCULT BLOOD [facility] Start: 1994 SIGMOIDOSCOPY SIGMOIDOSCOPY [facility] Start: 1989 Mammography MAMMOGRAM [facility] Start: 1979 Zoledronic acid therapy ALPHA-1 ANTITRYPSIN DEFICIENCY SCREENING [facility] Start: 1968 DTaP,Tdap and Td Vaccines (1 - Tdap) DTaP,Tdap and Td Vaccines (1 - Tdap) [facility] Start: 1968 Urine microalbumin profile DTAP,TDAP,TD (1 - Tdap) [facility] Start: 1967 Adult BMI Follow Up Plan Adult BMI Follow Up Plan [facility] Start: 1967 ANNUAL PCP TEAM CHRONIC DISEASE VISIT ANNUAL PCP TEAM CHRONIC DISEASE VISIT [facility] Start: 1967 BP CONTROLLED (<130/80) BP CONTROLLED (<130/80) [facility] Start: 1967 HEPATITIS C SCREENING HEPATITIS C SCREENING [facility] Start: 1967 SPIROMETRY SPIROMETRY [facility] Start: 1961 Depression Screening Depression Screening [facility] Start: 1950 Medicare Annual Wellness Visit Medicare Annual Wellness Visit [facility] Start: 1950 Tobacco Counseling Tobacco Counseling [facility] Immunizations Immunization Date Immunization Notes Care Provider Fa miguel 06-07-2022 unknown vaccine or immune globulin [facility] Work Phone: [facility] 05-25-2021 influenza, injectable,quadrivalent , preservative free, pediatric [facility] Work Phone: [facility] 05-25-2021 influenza virus vaccine, unspecified formulation Naomirodríguez Bautista A [facility] 09-18-2017 pneumococcal conjuga te vaccine, 13 valent [facility] Work Phone: [facility] 06-03-2017 influenza, seasonal, injectable [facility] Work Phone: [facility] 07-07-2016 influenza virus vaccine, unspecified formulation [facility] Work Phone: [facility] 06-14-2016 influenza, injectabl e, quadrivalent, preservative free [facility] Work Phone: [facility] 07-26-2015 influenza, high dose seasonal, preservative-free Aleksandar Castillo MD Work Phone: [facility] 07-26-2015 pneumococcal polysaccharide vaccine, 23 valent Aleksandar Katie V, MD Work Phone: [facility] Payers Date Payer Category Payer Medicare [id number] 1960 Medicare [id number] 1960 Medicare [id number] 1950 Unknown [id number] 2.16.8 [id number] 1950 Unknown [id number] 2.16.8 [id number] 1950 Unknown [id number] 2.16.84 [id number] 1950 Unknown [id number] 2.16.84 [id number] 1950 Unknown [id number] 2.16.84 [id number] 1950 Unknown [id number] 2.16.84 [id number] 1950 Unknown [id number] 2.16.84 [id number] 1950 Unknown [id number] 2.16.84 [id number] 1950 Unknown [id number] 2.16.84 [id number] 1950 Unknown [id number] 2.16.84 [id number] Unknown Social History Date Type Detail Facility Start: 03-22-2021 End: 08-15-2023 Tobacco smoking status NHIS Smokes tobacco daily [facility] Start: 09-03-1962 History of tobacco use Cigarette Smo ker [facility] Start: 10-14-2020 End: 03-22-2021 Cigarettes smoked current (pack per day) - Reported 0.5 [facility] Start: 03-22-2021 End: 08-15-2023 Tobacco use and exposure Smokeless tobacco non-user [facility] Start: 08-15-2022 End: 08-15-2023 Alcohol intake Current drinker of alcohol (finding) [facility] Start: 03-22-2021 Alcohol Comment rare/social [facility] Start: 1950 Sex Assigned At Not on file C [facility] Start: 10-14-2020 End: 08-15-2023 Tobacco use panel [facility] Childcare Unknown [facility] Start: 04-15-2018 Alcohol Comment SOMETIMES [facility] Medical Equipment Procedure Code Equipment Code Equipment Origin al Text Equipment Identifier Dates Graft Gelweave 3 0mm Straight Gelatin Polyester Woven 30cm Cardiovascular - [id number] Start: 01-10-2020 Casanova Cv 4x.5in Thk1.65mm Ptfe - [id number] Start: 07-20-2015 Casanova Thk1.65mm P tfe [id number] Cardiovascular Patch Sterile - [id number] Start: 01-10-2020 Lens Iol 0d +21. 5 Cary Uv Abs - [id number] Start: 04-13-2021 Comment on above: Description: -0.47 Patch Thk.5mm Esteban vine Pericardial [id number] Cardiovascular Resilience Durable - [id number] Start: 01-10-2020 Valve Aort 23mm Crp-Ed Thfx - [id number] Start: 01-10-2020 Clinical Notes 01-09-2020 to 08-01-2023 XIOMARA Farmer - 10/30/2022 3:19 PM ESTTelephone Encounter - Rayna Martin - 10/18/2022 1:30 PM ESTTelephone Encounter - Haven Moreno LPN - 10/18/2022 1:15 PM EST Note Date & Type Note Facility 08-01-[address] [facility] Cardiology Clinic Note Chief Complaint: Patient here for follow up [facility]. Underwent heart cath and AMITA [...] Severe obstructive karley (more content not included)... [facility] 07-22-2023 Note 07/22/23 1106 Home Oxygen Therapy Evaluation Pulse Oximetry on room air at Rest 87 Pulse Ox on O2 with nasal cannula while at rest 95 (placed patient on 2lpm via nasal cannula) Patient Qualification for home oxygen Qualifies $ Pulse Oximetry Single [facility] 07-22-2023 Note Hospital Medicine Discharge Summary Final Discharge Diagnosis: Newly diagnosed Atrial fibrillation, CHADVASc of 5 s/p AMITA Cardioversion Post cardioversion bradycardia Severe Bioprosthetic Aortic valve stenosis Admission Diagnosis: Atrial fibrillation ([facility]) [I48.91] Hospital course: Darek Mejía is a [...] versus TAVR procedure. Dear Dr. Deidra MD, [facility] is advised to follow up with you [...] 100-62.5-25 mcg blister with device Generic drug: lwsnxfyyaeh-vecebyndo-srwnllrf STOP taking these medications carvedilol 12.5 mg tablet Commonly known as: Coreg Where to Get Your Medications These medications were sent to [facility]/pharmacy #[id number] AT CORNER OF [address] [address] apixaban 5 mg tablet Darek is allergic [...] rales or rh (more content not included)... [facility] 07-22-2023 Note Attestation signed by Kvng Bustamante [...] 124 QT Interval 462 QTC CALCULATION(BAZETT) 412 R-Laurel -64 T Wave Laurel -82 Impression Wide QRS rhythm Left anterior fascicular block Left ventricular hypertrophy with QRS widening and repolarization abnormality ( [place] product ) Cannot rule out Septal infarct [...] with QRS widening and repolarization abnormality ( [place] product ) Cannot rule out Septal infarct [...] CABG x5 with revesion in 2020 at [facility] ([facility]-LAD, rSVG- Diagonal, SVG-OM, SVG-PDA-PLV) Aortic stenosis [...] Juancarlos Egan MD PGY-2 Internal Medicine Resident [facility] 07-21-2023 Note Physical Therapy Physical Therapy Evaluation [...] artery disease involving coronary bypass graft of [place] heart with angina pectoris (CMS/HCC) Dyslipidemia Encounter [...] reflux disease) Other emphysema (CMS/HCC) Atrial fibrillation ([facility]/HCC) Acute heart failure with preserved ejection fraction ([facility]/HCC) Nonrheumatic aortic valve stenosis Past Medical [...] Level of Function Prior Function Level of [place]: Independent with ADLs and functional transfers, Independent [...] to walk i (more content not included)... [facility] 07-21-2023 Note Hospital Medicine Daily Progress Note - 07/21/2023 11:41 AM; Room: [facility] Admission: 07/19/2023 8:09 PM; Length of stay: 2 days THE HOSPITALIST TEAM PREFERS TO USE [employer] CHAT FOR COMMUNICATION 7AM-7PM. IF I DO NOT RESPOND WITHIN 15 MINUTES, PLEASE PAGE ME/CALL THROUGH THE SURVEYING OR SPATIAL SCIENCE TECHNICIAN. FROM 7PM-7AM, PLEASE PAGE [phone](COVR) Code Status: Full Code Barriers to Discharge: [...] Active Inpatient Problems Principal Problem: Atrial fibrillation ([facility]) Active Problems: Acute heart failure with preserved ejection fraction ([facility]) Nonrheumatic aortic valve stenosis Assessment and Plan Severe Bioprosthetic Aortic valve stenosis Newly diagnosed Atrial fibrillation, CHADVASc = 5 CAD s/p CABG x5 with revesion in 2019 at [facility] (CH-LAD, rSVG- Diagonal, SVG-OM, SVG-PDA-PLV) Aortic stenosis [...] FREET4 1.14 07/21/2023 No results found for: [id number], IRON, TIBC, C3, C4, MIRIAM, CANCA, ASO, [...] Yes OT Discharge Recommendations: Home Signed Ulysses Fluler (more content not included)... [facility] 07-21-2023 Note Attestation signed by Kvng Bustamante [...] 124 QT Interval 462 QTC CALCULATION(BAZETT) 412 R-Laurel -64 T Wave Laurel -82 Impression Wide QRS rhythm Left anterior fascicular block Left ventricular hypertrophy with QRS widening and repolarization abnormality ( [place] product ) Cannot rule out Septal infarct [...] with QRS widening and repolarization abnormality ( [place] product ) Cannot rule out Septal infarct [...] CABG x5 with revesion in 2020 at [facility] (CH-LAD, rSVG- Diagonal, SVG-OM, SVG-PDA-PLV) Aortic stenosis [...] bradycardia with amiodar (more content not included)... [facility] 07-21-2023 Note Called re pt with br adycardia and frequent pvcs Recent labs reviewed will check free T4/T3 since tsh 0.06 consider readjusting doses check troponins hold coreg ekg staff to notify cardiology serum calcium high normal check vit d and repeat cmp [facility] 07-20-2023 Note Procedure Report PROCEDURE: synchronized cardioversion INDICATION: atrial fibrillation, persistent SURVEYING OR SPATIAL SCIENCE TECHNICIAN: Gallo Knowles M.D. ANESTHESIA: conscious sedation TECHNIQUE: [...] sinus rhythm. There were no apparent complications. [facility] 07-20-2023 Note Hospital Medicine Daily Progress Note - 07/20/2023 12:37 PM; Room: [address] [place] [address] Admission: 07/19/2023 8:09 PM; Length of stay: 1 days THE HOSPITALIST TEAM PREFERS TO USE [employer] CHAT FOR COMMUNICATION 7AM-7PM. IF I DO NOT RESPOND WITHIN 15 MINUTES, PLEASE PAGE ME/CALL THROUGH THE SURVEYING OR SPATIAL SCIENCE TECHNICIAN. FROM 7PM-7AM, PLEASE PAGE [phone](COVR) Code Status: Full Code Barriers to Discharge: [...] Active Inpatient Problems Principal Problem: Atrial fibrillation ([facility]) Active Problems: Acute heart failure with preserved ejection fraction ([facility]) Nonrheumatic aortic valve stenosis Assessment and Plan Severe Bioprosthetic Aortic valve stenosis Newly diagnosed Atrial fibrillation, CHADVASc = 5 CAD s/p CABG x5 with revesion in 2020 at [facility] ([facility]-LAD, rSVG- Diagonal, SVG-OM, SVG-PDA-PLV) Aortic stenosis [...] FREET4 1.31 07/19/2023 No results found for: [id number], IRON, TIBC, C3, C4, MIRIAM, CANCA, ASO, PSA, CEA, CA125, CA199, AFP, CA153 Imaging ECG 12 lead Atrial fibrillation Left axis deviation Left ventricular hypertrophy with QRS widening and repolarization abnormality ( [place] product ) Cannot rule out Anteroseptal infarct [...] in the epigastric (more content not included)... [facility] 07-20-2023 Note Clinical Nutrition A ssessment Name: [...] based on: actual body weight Calorie needs: 9110-0444 kcals/day based on Equation: 25-30 kcal/kg Protein [...] with questions and contact the dietitian via [employer] chat 8A-4P Sunday-Sunday. Or call the dietitian's office at extension [phone]. For weekends/holidays, the dietitian's can be reached by paging [phone] from 9A-3P. Unable to be reached via [employer] chat on Sunday & .) [facility] 07-20-2023 Note Occupational Therapy Occupational Therapy Evaluation [...] artery disease involving coronary bypass graft of [place] heart with angina pectoris (CMS/HCC) Dyslipidemia Encounter [...] (CMS/HCC) GERD (gastroesophageal reflux disease) Other emphysema ([facility]/HCC) Atrial fibrillation ([facility]/HCC) Acute heart failure with preserved ejection fraction ([facility]/HCC) Nonrheumatic aortic valve stenosis Past Medical [...] Level of Function Prior Function Level of [place]: Independent with ADLs and functional transfers, Independent [...] Eating meals?: None (Independent) Total Score OT [facility]: 21 Assessment/Plan OT Assessment OT Impairments: Decreased ADL status, Decreased endurance, Decreased functional mobility OT Assessment/PEER COUNSELOR Summary: (needs skilled OT for generalized weakness and fatigue) Prognosis: Good Evaluation/Treatment Tolerance: Patient limited by fatigue Medical Staff Made Aware: Yes OT Education/Comments: (ws/ec/pacing , ae/dme that may improve endurance for adls at home , all with good verbal return) Plan Level of assist: 1 assist Treatment Interventions: ADL retraining, Fu (more content not included)... [facility] 07-20-2023 Note Hospital Medicine History and Physical 07/19/2023 10:58 PM THE HOSPITALIST TEAM PREFERS TO USE [employer] CHAT FOR COMMUNICATION 7AM-7PM. IF I DO NOT RESPOND WITHIN 15 MINUTES, PLEASE PAGE ME/CALL THROUGH THE SURVEYING OR SPATIAL SCIENCE TECHNICIAN. FROM 7PM-7AM, PLEASE PAGE [phone](COVR) Chief Complaint No chief complaint on file. History of Present Illness Darek Mejía is an 73 y.o. female admitted from home per recommendation by her stock holder who saw her in the office and [...] Problem List Diagnosis Date Noted Atrial fibrillation ([facility]) 07/19/2023 GERD (gastroesophageal reflux disease) 10/30/2022 Other emphysema ([facility]) 10/30/2022 Combined forms of age-related cataract of both eyes 04/13/2021 Pleural effusion 01/19/2020 Encounter for support and coordination of transition of care 01/15/2020 Moderate protein-calorie malnutrition ([facility]) 01/11/2020 Hx of CABG 01/10/2020 Nonrheumatic aortic valve insufficiency 01/09/2020 Dyslipidemia 03/25/2019 Macular hole of right eye 10/23/2017 Ischemic heart disease, chronic 08/24/2015 Chronic systolic heart failure ([facility]) 07/24/2015 CHF (congestive heart failure) ([facility]) 07/24/2015 Hypervolemia 07/23/2015 Atelectasis 07/21/2015 Coronary artery disease involving coronary 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 [facility] 07-19-[address] [facility] Cardiology Clinic Note Chief Complaint: Patient [...] motion with ejection (more content not included)... [facility] 04-23-[address] [facility] Cardiology Clinic Note Chief Complaint: Patient [...] of ventricular bigeminy. (more content not included)... [facility] 01-31-2023 Note Continue GDMT- ASA, lipitor, coreg continue risk factor modifications- heart healthy diet, regular exercise as tolerated and continue all medications. [facility] 01-31-2023 Note [facility] II- currently e uvolemic without excaerbation Continue GDMT- ASA, lipitor, coreg, lisinopril and aldatone Diuretic therapy- lasix every other day Monitor daily weights, I&O, fluid restriction 1.5-2L/day, renal function and electrolytes- [facility] 01-31-2023 Note Stable- continue all meds [facility] 01-31-2023 Note Review of B/P log an d her HTN is much better controlled with addition of aldactone. K+ level remains normal and renal function is stable for her. Denied lightheadedness/dizziness Continue aldactone, lisinopril, coreg and lasix QOD [facility] 01-31-2023 Note Patient here for 2 m [...] All other systems reviewed and are negative. 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 RTC 3 months with repeat BMP in 1 week [facility] 01-11-2023 Note Review of b/p log sh ows HTN remains uncontrolled at home- will add aldactone to regime and repeat BMP in 1 week to assess renal function and potassium level Have pt RTC in 2-4 weeks- message sent to Quyen Vernon MA. [facility] 01-11-2023 Note Benign hypertensive cardiomyopathy with heart [...] Release to Patient Answer: Immediately Hawa Rush COMPUTER APPLICATIONS ENGINEER Division of Cardiology, [facility]- [phone] Pager- [phone] Email- [email or web address] 12-21-2022 Note [facility] II- currently e uvolemic without exacerbation Continue GDMT- ASA, lipitor, coreg, lisinopril Diuretic therapy- lasix qod Monitor daily weights, I&O, fluid restriction 1.5-2L/day, renal function and electrolytes- [facility] 12-21-2022 Note Coronary artery dise ase is stable Continue GDMT continue risk factor modifications- heart healthy diet, regular exercise as tolerated and continue all medications. [facility] 12-21-2022 Note stable: [facility] 12-21-2022 Note Currently stable wit hout any concerning symptoms [facility] 12-21-2022 Note Reviewed echocardiog ashwini with pt from 08/2022 No concerning symptoms currently Will repeat echo at 1 year- or Aug 2023 [facility] 12-21-2022 Note Hypertension is elev ated in office each time she is here most likely r/t white coat syndrome. States b/p typically at home is 130's/70 with occasional 140/80 Continue all meds [facility] 12-21-2022 Note Continue lipitor 80 mg [facility] 12-21-2022 Note Patient here for 4 [...] All other systems reviewed and are negative. [facility] 12-21-2022 Note [facility] CARDIOLOGY PROGR ESS NOTE [...] at 1 yea (more content not included)... [facility] 10-30-2022 Note HNO ID: [id number] Author: XIOMARA Farmer Service: ? Author Type: Biomass Facilitator Type: Progress Notes Filed: 10/30/2022 3:28 PM Note Text: CONFIRM AIM PLANO LEFT EYE. XIOMARA Farmer [facility] 10-30-2022 History of Present illness Narrative CONFIRM AIM PLANO LEFT EYE. XIOMARA Farmer documented in this encounter [facility] 10-18-2022 Miscellaneous Notes Called and spoke with [...] 2022 1:18 PM documented in this encounter [facility] 08-15-2022 Note HNO ID: [id number] Author: Aleksandar Wilson V, MD Service: ? [...] and surgery - Comanage with Dr Mccollum; [facility] POD #1 Cataract Presurgical Documentation Cataract: Left [...] patient was offered a surgery/procedure at a [facility] facility. The surgeon/proceduralist and patient have discussed [...] patient was offered a surgery/procedure at a [facility] facility. The surgeon/proceduralist and patient have discussed [...] form. -F/U [address] Mccollum ([facility]) The documentation recorded by the scribe accurately reflects the service I personally performed and the decisions made by me. I have confirmed and edited as necessary the relevant ophthalmic history, ROS, and the exam findings as obtained by others. I have seen and examined Darek Mejía. I also have reviewed and agree with the ass (more content not included)... [facility] 08-15-2022 Note HNO ID: [id number] Author: Jean-Claude Miles, LAWANDA Service: ? Author Type: HAT LINER Type: Progress Notes Filed: 08/15/2022 3:51 PM [...] Miles, OD August 15, 2022 3:07 PM [facility] 08-15-2022 History of Present illness Narrative The [...] and surgery - Comanage with Dr Mccollum; [facility] POD #1 Cataract Presurgical Documentation Cataract: Left [...] patient was offered a surgery/procedure at a [facility] facility. The surgeon/proceduralist and patient have discussed [...] patient was offered a surgery/procedure at a [facility] facility. The surgeon/proceduralist and patient have discussed [...] form. -F/U [address] Mccollum ([facility]) The documentation recorded by the scribe [...] 2022 3:07 PM documented in this encounter [facility] 01-09-2020 History of Past i llness Narrative [...] Dental: N/A PFT's: N/A ( per CTS intern - Per Dr. Bernal okay to proceed [...] of this encounter (statuses as of 08/15/2022) [facility] History of Past illness Narrative* Problem Noted [...] Dental: N/A PFT's: N/A ( per CTS intern - Per Dr. Bernal okay to proceed [...] of this encounter (statuses as of 08/16/2022) [facility] History of Past illness Narrative* Problem Noted [...] Dental: N/A PFT's: N/A ( per CTS intern - Per Dr. Bernal okay to proceed [...] DM: No Cardiac Surgical prep: Yes SIGNATURE: aNva Osuna CNP CHECKED BY: DATE of SERVICE: 07/19/2015 TIME of SERVICE: 4:19 PM Abnormal nuclear stress test 06/22/2015 Encounter for pre-operative cardiovascular clear ance 06/22/2015 07/26/2015 Dyslipidemia 06/22/2015 07/26/2015 documented as of this encounter (statuses as of 10/18/2022) [facility] History of Past illness Narrative* Problem Noted [...] Dental: N/A PFT's: N/A ( per CTS intern - Per Dr. Bernal okay to proceed [...] DM: No Cardiac Surgical prep: Yes SIGNATURE: Nvaa Osuna CNP CHECKED BY: DATE of SERVICE: 07/19/2015 TIME of SERVICE: 4:19 PM Abnormal nuclear stress test 06/22/2015 Encounter for pre-operative cardiovascular clear ance 06/22/2015 07/26/2015 Dyslipidemia 06/22/2015 07/26/2015 documented as of this encounter (statuses as of 10/31/2022) [facility] note* Diagnosis PCO (posterior capsular opacification), right- Primary After-cataract, unspecified Pseudophakia, right eye Lens replaced by other means Combined forms of age-related cataract of left eye Other and combined forms of senile cataract Full thickness macular hole, right [facility] [place] Diagnosis Combined forms of age-related cataract of left eye- Primary Other and combined forms of senile cataract documented in this encounter [facility] note* Diagnosis Combined forms of age-related cataract of left eye- Primary Other and combined forms of senile cataract Combined forms of age-related cataract of left eye Other and combined forms of senile cataract documented in this encounter [facility] note* Diagnosis 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 Family history of colon cancer Family history of malignant neoplasm of gastrointestinal tract [facility] filed[facility]ed in this encounter [facility] Summary Purpose Family History No Family History Records FoundNo Family History Records FoundNo Family History Records FoundNo Family History Records FoundNo Family History Records FoundNo Family History Records FoundNo Family History Records Found Advance Directives Documents on File Type Date Recorded Patient Chopper Feeder Expl anation Advance Directive(s) 01/16/2020 9:56 PM [...] list: All Problems Smoker / SNOMED CT [id number] / Confirmed Added secondary to documentation in [...] section and content) DATE CREATED AUTHOR 02/21/2018 [facility] DATE CREATED AUTHOR AUTHOR'S ORGANIZ ATION 02/25/2018 [facility] DATE CREATED AUTHOR AUTHOR'S ORGANIZ ATION 04/19/2019 [facility] DATE CREATED AUTHOR AUTHOR'S ORGANIZ ATION 08/22/2019 [facility] DATE CREATED AUTHOR AUTHOR'S ORGANIZ ATION 11/02/2022 [facility] DATE CREATED AUTHOR AUTHOR'S ORGANIZ ATION 12/09/[address] [facility] DATE CREATED AUTHOR AUTHOR'S ORGANIZ ATION 09/10/2023 [facility] Source Comments (unrecognize d section and content) In the event this informatio n is protected by the Federal Confidentiality of Alcohol and Drug Abuse Patient Records regulations: The Federal rules restrict any use of the information to criminally investigate or prosecute any alcohol or drug abuse patient.[facility] the event this information is protected by the Federal Confidentiality of Alcohol and Drug Abuse Patient Records regulations: The Federal rules restrict any use of the information to criminally investigate or prosecute any alcohol or drug abuse patient.[facility] the event this information is protected by the Federal Confidentiality of Alcohol and Drug Abuse Patient Records regulations: The Federal rules restrict any use of the information to criminally investigate or prosecute any alcohol or drug abuse patient.[facility] the event this information is protected by the Federal Confidentiality of Alcohol and Drug Abuse Patient Records regulations: The Federal rules restrict any use of the information to criminally investigate or prosecute any alcohol or drug abuse patient.[facility] Reason for Visit (unrecogniz ed section and content) Reason Comments Cataract Evaluation Left eye Posterior Capsule Opacification Evaluati on Right eye Specialty Diagnoses / Procedures Referred By Contac t Referred To Contact OPHTHALMOLOGY Diagnoses Combined forms of age-related cataract, bilateral Laser Yag Procedures POST-CATARACT LASER SURGERY Darian Coy OD [address] [place] [address] [facility] [address] [place] [address] Referral ID Status Reason Start Date Expiration Date Visits Re quested Visits Authorized [id number] Closed 03/21/2022 09/27/2022 1 1 Reason Comments Appointment Reason Comments Pre-Op Exam Care Teams (unrecognized sec tion and content) Assistant Press Operator Relationship Specialty Start Date End Date Kayleigh Gay MD PCP - General Family Medicine 06/17/15 Kayleigh Gay MD [facility] Medicine 06/17/15 Assistant Press Operator Relationship Specialty Start Date End Date Kayleigh Gay MD PCP - General Family Medicine 06/17/15 Kayleigh Gay MD [facility] Medicine 06/17/15 Assistant Press Operator Relationship Specialty Start Date End Date Kayleigh Gay MD PCP - General Family Medicine 06/17/15 Kayleigh Gay MD [facility] 06/17/15 Assistant Press Operator Relationship Specialty Start Date End Date Kayleigh Gay MD PCP - General Family Medicine 06/17/15 Kayleigh Gay MD [facility] Medicine 06/17/15 Assistant Press Operator Relationship Specialty Start Date End Date Kayleigh Gay MD [address] [place] [id number] PCP - General 04/15/18 Assistant Press Operator Relationship Specialty Start Date End Date Kayleigh Gay MD [address] [place] [id number] PCP - General 04/15/18 FOR RECORDS PERTAINING [...] BE BASED ON THE PRIMARY CLINICAL RECORDS. [facility] [employer] [facility]. provides no warranty or guarantee of the accuracy or completeness of information in this document.
[2023-10-29 10:43] LABS: Basophils Absolute Auto 0.1 10^3/uL (0.0-0.1); Basophils Percent Auto 1.4 % (0.2-2.0); Eosinophils Absolute Auto 0.2 10^3/uL (0.0-0.7); Eosinophils Percent Auto 3.3 % (0.9-7.0); Hemoglobin 11.5 g/dL (12.0-16.0); Immature Granulocytes Abs Auto 0.02 10^3/uL (0.00-0.03); Immature Granulocytes Pct Auto 0.3 % (0.0-0.5); Lymphocytes Absolute Auto 2.3 10^3/uL (1.2-3.8); Lymphocytes Percent Auto 31.2 % (20.5-60.0); Mean Corpuscular HGB Conc 31.1 g/dL (29.9-35.2); Mean Corpuscular Hemoglobin 26.3 pg (26.7-34.0); Mean Corpuscular Volume 84.7 fL (81.0-99.0); Mean Platelet Volume 11.1 fL (9.5-13.5); Monocytes Absolute Auto 0.7 10^3/uL (0.3-0.8); Monocytes Percent Auto 8.8 % (1.7-12.0); Neutrophils Absolute Auto 4.1 10^3/uL (1.4-6.5); Platelet Count 212 10^3/uL (150-450); Red Blood Count 4.37 10^6/uL (4.20-5.40); Red Cell Distribution Width 14.6 % (11.0-15.0); White Blood Count 7.4 10^3/uL (4.0-11.0)
[2023-10-29 11:04] LABS: Estimated Average Glucose 111 mg/dL; Glycohemoglobin A1C 5.5 % (4.5-6.2)
[2023-10-29 11:36] LABS: Free T4 1.11 ng/dL (0.76-1.46)
[2023-10-29 11:39] LABS: Alanine Aminotransferase 22 U/L (14-59); Albumin Globulin Ratio 0.7; Albumin Level 2.9 g/dL (3.4-5.0); Alkaline Phosphatase 119 U/L (46-116); Anion Gap 11.9; Aspartate Amino Transferase 25 U/L (15-37); BUN Creatinine Ratio 31.3; Bilirubin Total 0.4 mg/dL (0.2-1.0); Calcium 9.9 mg/dL (8.5-10.1); Chloride 107 mmol/L (98-107); Chol HDL Ratio 2.1; Cholesterol 109 mg/dL (<=200); Estimated GFR (African America >60 (>=60); Estimated GFR (Non-African Ame >60 (>=60); Free T3 2.59 pg/mL (2.18-3.98); Glucose 91 mg/dL (74-106); HDL Cholesterol 51 mg/dL (40-60); LDL Cholesterol Calculated 50.6 mg/dL; Potassium 3.9 mmol/L (3.5-5.1); Sodium 142 mmol/L (136-145); Thyroid Stimulating Hormone 0.055 uIU/mL (0.358-3.740); Total Protein 6.9 g/dL (6.4-8.2); Triglycerides 37 mg/dL (<=150); VLDL CHOLESTEROL 7.4 mg/dL
== END 2023-10-29 09:53 | disposition home or self-care (01) ==
LOC: LAB 09:53
PROVIDERS: PCP Family Medicine; Visit Provider Family Medicine
DX: Z00.00 Encounter for general adult medical examination without abnormal findings (principal); E78.5 Hyperlipidemia, unspecified; R53.83 Other fatigue; I10 Essential (primary) hypertension; R73.09 Other abnormal glucose
CPT/HCPCS: 36415; 80053; 80061; 83036; 84439; 84443; 84481; 85025

== ENCOUNTER 2023-12-14 08:29 | Outpatient (OUT) | payer MEDICARE, SELFPAY ==
--- NOTE | 2023-12-14 08:15 | NM_ITS ---
Patient Name: DAREK HINOJOSA MR#: [id number] : 1950 Exam Date: 12/14/2023 Ordering Doctor: DR JAMES CURIEL M.D. RADIOLOGY REPORT PROCEDURE: NM VERONICA PERF SPECT REST STR COMPARISON: None. INDICATIONS: DYSPNEA, CONGESTIVE HEART FAILURE TECHNIQUE: Exam Description: Stress/Rest two day protocol gated SPECT Rest Imagin.9 mCi Tc-99m Cardiolite IV on 12/14/2023 Stress Imaging 25.4 mCi Tc-99m Cardiolite IV on 12/19/2023 Exercise Protocol: 0.4 mg Lexiscan given IV Heart Rate (bpm): Rest: 64 Max: 76 PMHR: 52 Blood Pressure: Rest: 162/74 Max: 168/76 Symptoms: Rest and peak stress ECG findings were pending and the exercise portion of the study was pending per attending physician Dr. GREENWOOD . For more details please see separate cardiac stress test report. FINDINGS: QUALITY OF STUDY: Good. PERFUSION DEFECT: LOCATION: Basal inferolateral. Basal anterolateral. [place]. SIZE: Medium (3-4 segments). SEVERITY: Mild. TYPE: Persistent. WALL MOTION: Normal. LV SIZE: Enlarged; EDV 158 mL. TID / TCD: None; 0.9 LVEF: Abnormal. Calculated EF 50%. SUMMARY: Myocardial perfusion imaging study has ABNORMAL findings. CONCLUSION: 1. Dilated left ventricle, EDV 158 milliliters 2. Low left ventricular ejection fraction of 50% 3. Moderate-sized area of mildly decreased uptake in the lateral wall and apex without evidence of redistribution, primarily circumflex distribution 4. Pending exercise test result Dictated by: Mu Tolbert MD on 12/19/2023 at 12:04 Approved by: Mu Tolbert MD on 12/19/2023 at 12:06
--- OUTSIDE RECORDS SUMMARY | 2023-12-14 08:37 | XMS_ITS | CCD ---
Author Organization [facility] Care Team Providers Care Relationship Mgr Name Role Phone SALOME, DUSTIN K Unavailable Unavailable SALOME, DUSTIN K Unavailable Unavailable HOY, KAYLEIGH M Unavailable Unavailable SALOME, DUSTIN K Unavailable Unavailable SALOME, DUSTIN K Unavailable Unavailable HOY, KAYLEIGH M Unavailable Unavailable PHYSICIAN, DEFAULT Unavailable Unavailable PHYSICIAN, DEFAULT Unavailable Unavailable OLGA PARISI I Referring Unavailable HOY, KAYLEIGH M Primary Care Unavailable RENE, ESTEBAN H. Admitting Unavailable RENE, ESTEBAN H. Attending Unavailable KAYLEIGH GAY M Primary Care Unavailable Kayleigh Gay MD Primary Care Provider [phone] Kayleigh Gay MD Unavailable KATIE V, ALEKSANDAR Referring Unavailable KATIE V, ALEKSANDAR Attending Unavailable HOY, KAYLEIGH M Primary Care Unavailable KATIE V, ALEKSANDAR Referring Unavailable HOY, KAYLEIGH M Primary Care Unavailable KATIE V, ALEKSANDAR Admitting Unavailable KATIE V, ALEKSANDAR Referring Unavailable KATIE V, ALEKSANDAR Attending Unavailable KELLY GAYLAS M Primary Care Unavailable KATIE V, ALEKSANDAR Referring Unavailable HOY, KAYLEIGH M Primary Care Unavailable KATIE V, ALEKSANDAR Referring Unavailable HOY, KAYLEIGH M Primary Care Unavailable VISHALY ., DR VICTOR Attending Unavailable HOY ., [...] Unavailable HOY ., DR VICTOR Consulting Unavailable ADRIHAWA Henderson Consulting Unavailable ADRI, HAWA Admitting Unavailable HOY [...] Vishaly , Kayleigh Avila Primary Care Provider [phone] Allergies Allergy Classification Reported Allergen(s) Allergy Type Date of Onset Reaction(s) Facility (10 sources) Allopurinol; Translations: [ALLOPURINOL] Drug Allergy 5 Intolerance, Other (See Comments) [facility] (9 sources) diphtheria toxoid vaccine, inactivated / tetanus toxoid vaccine, inactivated; Translations: [TETANUS AND DIPHTHER. TOX (PF)] Drug Allergy 8 Intolerance [facility] (5 sources) Isosorbide; Translations: [ISOSORBIDE MONONITRATE] Drug Allergy 6 Intolerance [facility] (8 sources) tetanus toxoid vaccine, inactivated; Translations: [TETANUS TOXOID ADSORBED] Drug Allergy 5 Other: See Comments [facility] (4 sources) Isosorbide Dinitrate; Translations: [ISOSORBIDE DINITRATE] Drug Allergy 6 Nausea And Vomiting [facility] (4 sources) Spironolactone; Translations: [SPIRONOLACTONE ] Drug Allergy 3 Nausea And Vomiting [facility] (1 source) TETANUS VACCINES AND TOXOID; Translations: [TETANUS VACCINES AND TOXOID] Propensity to adverse reactions to drug (disorder) 5 [facility] Medications Current Medications Medication Drug Class(es) Dates Sig (Normalized) Sig (Original) atorvastatin 40 mg oral tablet (7 sources) HMG-CoA Reductase Inhibitor Start: 03-20-2018 atorvastatin (LIPITOR) 40 mg tablet Comment on above: Take by mouth q 24 H R. benoxinate hydrochloride 4 mg/ml / fluorescein sodium 2.5 mg/ml ophthalmic solution (1 source) Diagnostic Dye Start: 08-15-2022 End: 08-16-2022 fluorescein-benoxin ate 0.25-0.4 % 1 Drop (FLURESS) carvedilol 6.25 mg oral tablet (7 sources) alpha-Adrenergic Jose, beta-Adrenergic Jose Start: 08-01-2023 [...] oral route. cholecalciferol 0.05 mg oral capsule (7 sources) Vitamin D Start: 3 take 1 capsule by mouth in the morning cholecalciferol, vitamin D3, 2,000 units capsule Take 1 capsule (2,000 Units total) by mouth in the morning. 0 08/01/2023 Active Start: 05-09-2022 take 1 capsule by [facility] once daily Cholecalciferol, Vitamin D3, 50 mcg (2,000 unit) cap cholecalciferol (vitamin D3) 50 mcg (2,000 unit) capsule TAKE 1 CAPSULE BY MOUTH EVERY DAY 0 05/09/2022 Active Comment on above: cholecalciferol (vit acosta D3) 50 mcg (2,000 unit) capsule TAKE 1 CAPSULE BY MOUTH EVERY DAY dapagliflozin 10 mg oral tablet (3 sources) Sodium-Glucose Cotransporter 2 Inhibitor Start: 023 End: 024 take 1 tablet by mouth in the morning dapagliflozin propanediol (FARXIGA) 10 mg tablet Take 1 tablet (10 mg total) by mouth in the morning. 0 08/01/2023 07/31/2024 Active 30 actuat fluticasone furoate 0.1 mg/actuat / umeclidinium 0.0625 mg/actuat / vilanterol 0.025 mg/actuat dry powder inhaler (7 sources) Anticholinergic, Corticosteroid, beta2-Adrenergic Agonist Start: take 1 puff(s) by inhalation once daily TRELEGY ELLIPTA 100-62.5-25 mcg blister with device Inhale 1 puff once daily. 0 07/16/2023 Active Start: 07-21-2022 take 1 puff(s) by mo uth once daily TRELEGY ELLIPTA 100-62.5-25 mcg inhalation powder INHALE 1 PUFF BY MOUTH EVERYDAY *RINSE MOUTH AFTER USE* 0 07/21/2022 Active Comment on above: INHALE 1 PUFF BY RUEL TH EVERYDAY *RINSE MOUTH AFTER USE* furosemide 20 mg oral tablet (7 sources) Loop Diuretic Start: 04-02-2023 take 1 [...] 7 DAYS. hydroCHLOROthiazide 25 mg oral tablet (3 sources) Thiazide Diuretic Start : 05-28 hydroCHLOROthiazide (HYDRODIURIL) 25 mg tablet ipratropium bromide 0.021 mg/actuat metered dose nasal spray (3 sources) Anticholinergic Start : 07-16 take 2 spray(s) nasal route twice daily ipratropium (ATROVENT) 21 mcg (0.03 %) nasal spray SPRAY 2 SPRAYS INTO EACH NOSTRIL TWICE A DAY 0 07/16/2023 Active ketorolac tromethamine 5 mg/ml ophthalmic solution (5 sources) Nonsteroidal Anti-inflammatory Drug, Cyclooxygenase Inhibitor Start [...] AFTER SURGERY lisinopril 20 mg oral tablet (7 sources) Angiotensin Converting Enzyme Inhibitor Start: 3 End: 4 take 1 tablet by mouth in the morning lisinopriL (PRINIVIL,ZESTRIL) 20 mg tablet Take 1 tablet (20 mg total) by mouth in the morning. 0 04/06/2023 04/05/2024 Active Start: 08-07-2022 lisinopril (ZE STRIL, PRINIVIL) 20 mg tablet pantoprazole 40 mg delayed release oral tablet (7 sources) Proton Pump Inhibitor Start: 03-20-2018 pantoprazole (PROTONIX) 40 mg EC tablet Comment on above: pantoprazole 40 mg t ablet,delayed release TAKE 1 TABLET BY MOUTH EVERY DAY phenylephrine hydrochloride 25 mg/ml ophthalmic solution (1 source) alpha-1 Adrenergic Agonist Start: 08-15-2022 End: 08-16-2022 PHENYLephrine 2.5 % 1 Drop (AK-DILATE, MENA-SYNEPHRINE) microencapsulated potassium chloride 10 meq extended release oral tablet (7 sources) take 1 tablet by mouth in the morning potassium chloride (KLOR-CON M 10) 10 MEQ CR tablet Take 1 tablet (10 mEq total) by mouth in the morning. 0 Active Comment on above: q 24 HR. proparacaine hydrochloride 5 mg/ml ophthalmic solution (1 source) Local Anesthetic Start: 08-15-2022 End: 08-16-2022 proparacaine 0.5 % 1 Drop (ALCAINE) sertraline 100 mg oral tablet (7 sources) Serotonin Reuptake Inhibitor sertraline (ZOLOFT) 100 mg tablet Take 1 tablet (100 mg total) by mouth. 0 Active Comment on above: Take 100 mg by mouth once daily. 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 24 tablet 0 08/15/2023 Active tiZANidine 4 mg oral tablet (7 sources) Central alpha-2 Adrenergic Agonist Start: 03-20-2018 tiZANidine (ZANAFLEX) 4 mg tablet Comment on above: tizanidine 4 mg tabl et TAKE 1 TABLET BY MOUTH THREE TIMES DAILY tropicamide 10 mg/ml ophthalmic solution (1 source) Anticholinergic Start: 08-15-2022 End: 08-16-2022 tropicamide 1 % 1 Drop (MYDRIACYL) Completed/Discontinued Medications Medication Drug Class(es) Dates Sig (Normalized) Sig (Original) aspirin 81 mg chewable tablet (7 sources) Platelet Aggregation Inhibitor, Nonsteroidal Anti-inflammatory Drug [...] oral tablet (4 sources) l-Triiodothyronine Start: 07-25-20 22 take 2 tablets by mouth once daily liothyronine (CYTOMEL) 5 mcg tablet Take 10 mcg by mouth once daily. 0 07/25/2022 Active Comment on above: Take 10 mcg by mouth once daily. prednisoLONE acetate 10 mg/ml ophthalmic suspension (4 sources) Corticosteroid Start: 04-12-20 21 prednisoLONE acetate (PRED FORTE, ECONOPRED PLUS) 1 [...] Coronary atherosclerosis; Translations: [Atherosclerotic heart disease of [place] coronary artery without angina pectoris] Onset: 06-22-2015 [...] Reference Range Facility EGD / Colonoscopyon 10-10-19 [facility] Surgical PathologyOrdered By : Naomi Bautista on 10-10-2023 [facility] Orders Onlyon 09-05-2023 Orders Only [id number] Darek Mejía 1950 F Date Provider Department Center 09/05/2023 NARAYAN RODRIGUEZ Family History Problem Relation Age of Onset Coronary artery disease Father Diabetes Father Family Status - Relation Status Age at Father [facility] 35on 08-17-2023 35 6 weeks s/p cardioversion would be 08/31/2023. Judy at Dr. Zhang' office made aware via fax. [facility] [address] Willian henderson' office called requesting Darek Coombs 3 days prior to EGD/colonscopy scheduled on 09/05/2023. Please advise. [facility] Office Visiton 08-01-2023 Follow-up visit [id number] Darek Mejía 1950 F Date Provider Department Center 08/01/2023 [id number], E[facility] Family History Problem Relation Age of Onset Coronary artery disease Father Diabetes Father Family Status - Relation Status Age at Father Level of Service:28540 [place] OFFICE/OUTPATIENT ESTABLISHED HIGH MDM 40-54 MIN Normal [facility] 30on 07-22-2023 30 Problem: Pain - Adul [...] dysrhythmias or at baseline Outcome: Progressing Normal [facility] 30 The patient is Moderately Stable - [...] dysrhythmias or at baseline Outcome: Progressing Normal [facility] ANTI-XA (HEPARIN LEVEL)on HEPARIN UNFRACTIONATED (U/ML) IN PPP BY CHROMOGENIC METHOD 0.17 IU/mL Low 0.3-0.7 [facility] Comment on above: Result Comment: Clotilde roxaban and Apixaban will interfere with the anti Xa assay used to monitor UFH and LMWH. Performed By: #### L [id number] #### [facility] ([facility]) [address] [place] [address] HEPARIN UNFRACTIONATED (U/ML) IN PPP BY CHROMOGENIC METHOD 0.21 IU/mL Low 0.3-0.7 [facility] Comment on above: Result Comment: [place] roxaban and Apixaban will interfere with the anti Xa assay used to monitor UFH and LMWH. Performed By: #### L [id number] #### [facility] ([facility]) [address] [place] [address] CBCon 07-22-2023 Erythrocyte distribution width (RBC) [Ratio] 16.5 % High 11.5-15.0 [facility] Comment on above: Performed By: #### L [id number] #### [facility] ([facility]) [address] [place] [address] ERYTHROCYTE MEAN CORPUSCULAR HEMOGLOBIN CONCENTRATION (G/DL) BY AUTOMATED 32.0 g/dL Normal 32.0-35.0 [facility] Comment on above: Performed By: #### L [id number] #### [facility] ([facility]) [address] [place] [address] Hematocrit (Bld) [Volume fraction] 29.1 % Low 36.0-48.0 [facility] Comment on above: Performed By: #### L [id number] #### [facility] ([facility]) [address] [place] [address] Hemoglobin (Bld) [Mass/Vol] 9.3 g/dL Low 12.0-15.0 [facility] Comment on above: Performed By: #### L [id number] #### [facility] ([facility]) [address] [place] [address] MCH (RBC) [Entitic mass] 27.0 pg Normal 27.0-33.0 [facility] Comment on above: Performed By: #### L [id number] #### [facility] ([facility]) [address] [place] [address] MCV (RBC) [Entitic vol] 84.6 fL Normal 82.0-98.0 [facility] Comment on above: Performed By: #### L [id number] #### [facility] ([facility]) [address] [place] [address] PLATELETS (10*3/UL) IN BLOOD AUTOMATED COUNT 202 10*3/uL Normal 150-400 [facility] Comment on above: Performed By: #### L [id number] #### [facility] ([facility]) [address] [place] [address] RBC (Bld) [#/Vol] 3.44 10*6/uL Low 3.80-5.00 [facility] Comment on above: Performed By: #### L [id number] #### [facility] ([facility]) [address] [place] [address] WBC (Bld) [#/Vol] 6.43 10*3/uL Normal 4.00-10.60 [facility] Comment on above: Performed By: #### L [id number] #### [facility] ([facility]) [address] [place] [address] 30on 07-21-2023 30 Problem: Pain - Adul [...] and behaviors that affect risk of falls [place] fall precautions as indicated by assessment Educate [...] for the shift include VSS; safety Normal [facility] 30 The patient is Moderately Stable - [...] or at baseline Outcome: Not Progressing Normal [facility] ANTI-XA (HEPARIN LEVEL)on HEPARIN UNFRACTIONATED (U/ML) IN PPP BY CHROMOGENIC METHOD 0.14 IU/mL Invalid Interpretation Code 0.3-0.7 [facility] Comment on above: Result Comment: [place] roxaban and Apixaban will interfere with the anti Xa assay used to monitor UFH and LMWH. Performed By: #### L [id number] ####[facility] ([facility])[address] [place] [address] HEPARIN UNFRACTIONATED (U/ML) IN PPP BY CHROMOGENIC METHOD <0.10 Invalid Interpretation Code 0.3-0.7 [facility] Comment on above: Result Comment: Clotilde roxaban and Apixaban will interfere with the anti Xa assay used to monitor UFH and LMWH. Performed By: #### L [id number] #### [facility] ([facility]) [address] [place] [address] HEPARIN UNFRACTIONATED (U/ML) IN PPP BY CHROMOGENIC METHOD <0.10 Invalid Interpretation Code 0.3-0.7 [facility] Comment on above: Order Comment: Check anti-Xa level every 6 hours while on heparin infusion, or per protocol. Result Comment: [place] roxaban and Apixaban will interfere with the anti Xa assay used to monitor UFH and LMWH. Performed By: #### L [id number] #### [facility] ([facility]) [address] [place] [address] B-TYPE NATRIURETIC PEPTIDEon 07-21-2023 Natriuretic peptide B (Bld) [Mass/Vol] 841 pg/mL High 0-100 [facility] Comment on above: Performed By: #### L [id number] #### [facility] ([facility]) [address] [place] [address] COMPREHENSIVE METABOLIC PANE Oscar 07-21-2023 Albumin [Mass/Vol] 2.9 g/dL Low 3.5-5.7 [facility] Comment on above: Performed By: #### L [id number] #### [facility] ([facility]) [address] [place] [address] ALP [Catalytic activity/Vol] 97 U/L Normal 34-104 [facility] Comment on above: Performed By: #### L [id number] #### [facility] ([facility]) [address] [place] [address] ALT [Catalytic activity/Vol] 12 U/L Normal 7-52 [facility] Comment on above: Performed By: #### L [id number] #### [facility] ([facility]) [address] [place] [address] Anion gap [Moles/Vol] 11 mmol/L Normal 7-20 [facility] Comment on above: Performed By: #### L [id number] #### [facility] ([facility]) [address] [place] [address] AST [Catalytic activity/Vol] 21 U/L Normal 13-39 [facility] Comment on above: Performed By: #### L [id number] #### [facility] [address] [place] [address] Bilirubin [Mass/Vol] 0.6 mg/dL Normal 0.3-1.[address] [facility] Comment on above: Performed By: #### L [id number] #### [facility] [address] [place] [address] Calcium [Mass/Vol] 9.7 mg/dL Normal 8.6-10.3 [facility] Comment on above: Performed By: #### L [id number] #### [facility] [address] [place] [address] Chloride [Moles/Vol] 108 mmol/L High 98-[address] [facility] Comment on above: Performed By: #### L [id number] #### [facility] ([facility]) [address] [place] [address] CO2 [Moles/Vol] 23 mmol/L Normal 21-31 [facility] Comment on above: Performed By: #### L [id number] #### [facility] ([facility]) [address] [place] [address] Creatinine [Mass/Vol] 0.68 mg/dL Normal 0.60-1.20 [facility] Comment on above: Performed By: #### L [id number] #### [facility] ([facility]) [address] [place] [address] GLOMERULAR FILTRATION RATE ML/MIN/1.73 SQ M.PREDICTED 91.3 mL/min/1.73m*2 Normal >60.[address] [facility] Comment on above: Result Comment: The [facility]???s estimated glomerular filtration rate (eGFR) will no [...] individuals. Performed By: #### L [id number] #### [facility] ([facility]) [address] [place] [address] Glucose [Mass/Vol] 92 mg/dL Normal 70-100 [facility] Comment on above: Performed By: #### L [id number] #### [facility] ([facility]) [address] [place] [address] Potassium [Moles/Vol] 3.8 mmol/L Normal 3.5-5.1 [facility] Comment on above: Performed By: #### L [id number] #### [facility] ([facility]) [address] [place] [address] Protein [Mass/Vol] 5.4 g/dL Low 6.0-8.3 [facility] Comment on above: Performed By: #### L [id number] #### [facility] ([facility]) [address] [place] [address] Sodium [Moles/Vol] 138 mmol/L Normal 136-145 [facility] Comment on above: Performed By: #### L [id number] #### [facility] ([facility]) [address] [place] [address] Urea nitrogen [Mass/Vol] 19 mg/dL Normal 7-25 [facility] Comment on above: Performed By: #### L [id number] #### [facility] ([facility]) [address] [place] [address] UREA NITROGEN/CREATININE (MASS RATIO) IN SER/PLAS 27.9 Normal [facility] Comment on above: Performed By: #### L [id number] #### [facility] ([facility]) [address] [place] [address] HEMOGLOBIN AND HEMATOCRIT, B LOODon 07-21-2023 Hematocrit (Bld) [Volume fraction] 29.9 % Low 36.0-48.0 [facility] Comment on above: Performed By: #### L [id number] #### [facility] ([facility]) [address] [place] [address] Hemoglobin (Bld) [Mass/Vol] 9.5 g/dL Low 12.0-15.0 [facility] Comment on above: Performed By: #### L [id number] #### [facility] ([facility]) [address] [facility] [place] [address] MAGNESIUMon 07-21-2023 Magnesium [Mass/Vol] 1.5 mg/dL Low 1.9-2.[address] [facility] Comment on above: Performed By: #### L [id number] ####[facility] ([facility])[address] [place] [address] T3, FREEon 07-21-2023 TRIIODOTHYRONINE (T3) FREE (PG/ML) IN SER/PLAS 3.7 pg/mL Normal 2.5-3.9 [facility] Comment on above: Performed By: #### L [id number] ####[facility] ([facility])[address] [facility] [place] [address] T4, FREEon 07-21-2023 THYROXINE (T4) FREE (NG/DL) IN SER/PLAS 1.14 ng/dL Normal 0.71-1.[address] [facility] Comment on above: Performed By: #### L [id number] ####[facility] ([facility])[address] [place] [address] TROPONIN Ion 07-21-2023 Troponin I.cardiac [Mass/Vol] 0.04 ng/mL Normal 0.00-0.04 [facility] Comment on above: Performed By: #### L [id number] #### [facility] ([facility]) [address] [facility] [place] [place] [address] Troponin I.cardiac [Mass/Vol] 0.05 ng/mL High 0.00-0.04 [facility] Comment on above: Performed By: #### L [id number] ####[facility] ([facility])[address] [place] [address] VITAMIN D 1,25 DIHYDROXYon 1 09-20-2022 VITAMIN D 1,25-DIHYDROXY 32.9 pg/mL Normal 19.9-79.3 [facility] Comment on above: Result Comment: INTE RPRETIVE INFORMATION: Vitamin D, 1,25-Dihydroxy This test is primarily indicated during patient evaluation for hypercalcemia and renal failure. A normal result does not rule out Vitamin D deficiency. The recommended test for diagnosing Vitamin D deficiency is Vitamin D 25-hydroxy. Performed By: [facility] [address] [place] [address] Radiator Tester: Zeus Ventura MD, PhD CLIA Number: [id number] Performed By: #### L [id number] ####[facility] ([facility])[address] [place] [address] VITAMIN D 25 HYDROXYon 07-21 CALCIDIOL (25 [place] VITAMIN D3) (NG/ML) IN SER/PLAS 23.2 ng/mL Low 30.0-80.0 [facility] Comment on above: Result Comment: >80. 0 Toxicity possible Performed By: #### L [id number] #### [facility] ([facility]) [address] [place] [address] 30on 07-20-2023 30 Daily Case Managemen t Update Multidisciplinary rounds have been completed. End of shift note. Per Progress Note/s: ER admit from take off man office; new onset A-Fib. Heparin gtt. Cardiac Cath. AMITA. PT ordered; pending. OT recs Home. From Home. Diet: Dietary Orders (From admission, onward) Start Ordered 07/20/23 151 Special Kitchen Request Once Comments: Chicken tenders [...] Reason for OT? Answer: fall 07/19/232117 Normal [facility] 30 Problem: Pain - Adul t [...] and behaviors that affect risk of falls [place] fall precautions as indicated by assessment Educate [...] for the shift include VSS; safety Normal [facility] ANESon 07-20-2023 ANES Patient: Darek Mejía Choose [...] fellow and attending. Additional Equipment Requests Normal [facility] ANES Patient: Darek Dickjocelynemarlene Choose an anesthesia [...] fellow and attending. Additional Equipment Requests Normal [facility] ANTI-XA (HEPARIN LEVEL)on HEPARIN UNFRACTIONATED (U/ML) IN PPP BY CHROMOGENIC METHOD <0.10 Invalid Interpretation Code 0.3-0.7 [facility] Comment on above: Order Comment: Check anti-Xa level every 6 hours while on heparin infusion, or per protocol. Result Comment: Clotilde roxaban and Apixaban will interfere with the anti Xa assay used to monitor UFH and LMWH. Performed By: #### L [id number] #### [facility] ([facility]) [address] [place] [address] CBCon 07-20-2023 Erythrocyte distribution width (RBC) [Ratio] 16.4 % High 11.5-15.0 [facility] Comment on above: Performed By: #### L [id number] #### [facility] [address] [place] [address] ERYTHROCYTE MEAN CORPUSCULAR HEMOGLOBIN CONCENTRATION (G/DL) BY AUTOMATED 32.2 g/dL Normal 32.0-35.0 [facility] Comment on above: Performed By: #### L [id number] #### [facility] ([facility] [address] [place] [address] Hematocrit (Bld) [Volume fraction] 32.3 % Low 36.0-48.0 [facility] Comment on above: Performed By: #### L [id number] #### [facility] [address] [place] [address] Hemoglobin (Bld) [Mass/Vol] 10.4 g/dL Low 12.0-15.0 [facility] Comment on above: Performed By: #### L [id number] #### [facility] [address] [place] [address] MCH (RBC) [Entitic mass] 26.8 pg Low 27.0-33.0 [facility] Comment on above: Performed By: #### L [id number] #### [facility] ([facility]) [address] [place] [address] MCV (RBC) [Entitic vol] 83.2 fL Normal 82.0-98.0 [facility] Comment on above: Performed By: #### L [id number] #### [facility] ([facility]) [address] [place] [address] PLATELETS (10*3/UL) IN BLOOD AUTOMATED COUNT 262 10*3/uL Normal 150-400 [facility] Comment on above: Performed By: #### L [id number] #### [facility] ([facility]) [address] [place] [address] RBC (Bld) [#/Vol] 3.88 10*6/uL Normal 3.80-5.00 [facility] Comment on above: Performed By: #### L [id number] #### [facility] ([facility]) [address] [place] [address] WBC (Bld) [#/Vol] 5.76 10*3/uL Normal 4.00-10.60 [facility] Comment on above: Performed By: #### L [id number] #### [facility] ([facility]) [address] [place] [address] CONSULTon 07-20-2023 CONSULT --- Attestation signed by [...] CKMB, CKM (more content not included)... Normal The [facility] HPon 07-20-2023 History Of Present Illness Darek [...] further evaluate symptoms Faith Hassan DO, MPH Workers Compensation Consultant [facility] Normal [facility] HP H&P reviewed. The patient was examined and there are no changes to the H&P. Normal [facility] ANTI-XA (HEPARIN LEVEL)on HEPARIN UNFRACTIONATED (U/ML) IN PPP BY CHROMOGENIC METHOD <0.10 Invalid Interpretation Code 0.3-0.7 [facility] Comment on above: Order Comment: Check anti-Xa level every 6 hours while on heparin infusion, or per protocol. Result Comment: [place] roxaban and Apixaban will interfere with the anti Xa assay used to monitor UFH and LMWH. Performed By: #### L [id number] #### [facility] ([facility]) [address] [place] [address] APTTon 07-19-2023 ACTIVATED PARTIAL THROMBOPLASTIN TIME IN PPP BY COAGULATION ASSAY 29.1 Seconds Normal 25.0-35.0 [facility] Comment on above: Order Comment: Basel ine aPTT before initiating heparin infusion. Result Comment: Clin ical significance of the APTT is questionable in the presence of heparin. Performed By: #### L [id number] ####[facility] ([facility])[address] [place] [address] CBC WITH AUTO DIFFERENTIALon 07-19-2023 Basophils (Bld) [#/Vol] 0.07 10*3/uL Normal 0.00-0.20 [facility] Comment on above: Performed By: #### L [id number] #### [facility] ([facility]) [address] [place] [address] Basophils/100 WBC (Bld) 1.1 % High 0.0-1.0 [facility] Comment on above: Performed By: #### L [id number] #### [facility] ([facility]) [address] [place] [address] Eosinophils (Bld) [#/Vol] 0.10 10*3/uL Normal 0.00-0.50 [facility] Comment on above: Performed By: #### L [id number] #### [facility] [address] [place] [address] Eosinophils/100 WBC (Bld) 1.6 % Normal 0.0-6.0 [facility] Comment on above: Performed By: #### L [id number] #### [facility] ([facility]) [address] [place] [address] Erythrocyte distribution width (RBC) [Ratio] 16.4 % High 11.5-15.0 [facility] Comment on above: Performed By: #### L [id number] #### [facility] ([facility]) [address] [place] [address] ERYTHROCYTE MEAN CORPUSCULAR HEMOGLOBIN CONCENTRATION (G/DL) BY AUTOMATED 31.8 g/dL Low 32.0-35.0 [facility] Comment on above: Performed By: #### L [id number] #### [facility] ([facility]) [address] [place] [address] Hematocrit (Bld) [Volume fraction] 35.5 % Low 36.0-48.0 [facility] Comment on above: Performed By: #### L [id number] #### [facility] ([facility]) [address] [place] [address] Hemoglobin (Bld) [Mass/Vol] 11.3 g/dL Low 12.0-15.0 [facility] Comment on above: Performed By: #### L [id number] #### [facility] ([facility]) [address] [place] [address] Immature granulocytes (Bld) [#/Vol] 0.02 10*3/uL Normal 0.00-0.20 [facility] Comment on above: Performed By: #### L [id number] #### [facility] [address] [place] [address] Immature granulocytes/100 WBC (Bld) 0.3 % Normal 0.0-1.0 [facility] Comment on above: Performed By: #### L [id number] #### [facility] ([facility]) [address] [place] [address] Lymphocytes (Bld) [#/Vol] 1.76 10*3/uL Normal 1.20-4.00 [facility] Comment on above: Performed By: #### L [id number] #### [facility] ([facility]) [address] [place] [address] Lymphocytes/100 WBC (Bld) 28.5 % Normal 20.0-45.0 [facility] Comment on above: Performed By: #### L [id number] #### [facility] [address] [place] [address] MCH (RBC) [Entitic mass] 26.9 pg Low 27.0-33.0 [facility] Comment on above: Performed By: #### L [id number] #### [facility] ([facility]) [address] [place] [address] MCV (RBC) [Entitic vol] 84.5 fL Normal 82.0-98.0 [facility] Comment on above: Performed By: #### L [id number] #### [facility] ([facility]) [address] [place] [address] Monocytes (Bld) [#/Vol] 0.48 10*3/uL Normal 0.10-1.00 [facility] Comment on above: Performed By: #### L [id number] #### [facility] [address] [place] [address] Monocytes/100 WBC (Bld) 7.8 % Normal 5.0-12.0 [facility] Comment on above: Performed By: #### L [id number] #### [facility] ([facility]) [address] [place] [address] Neutrophils (Bld) [#/Vol] 3.74 10*3/uL Normal 1.60-7.60 [facility] Comment on above: Performed By: #### L [id number] #### [facility] [address] [place] [address] Neutrophils/100 WBC (Bld) 60.7 % Normal 40.0-72.0 [facility] Comment on above: Performed By: #### L [id number] #### [facility] ([facility]) [address] [place] [address] NRBC (PER 100 WBCS) BY AUTOMATED COUNT 0.0 % Normal 0 [facility] Comment on above: Performed By: #### L [id number] #### [facility] ([facility]) [address] [place] [address] PLATELETS (10*3/UL) IN BLOOD AUTOMATED COUNT 289 10*3/uL Normal 150-400 [facility] Comment on above: Performed By: #### L [id number] #### [facility] ([facility]) [address] [place] [address] RBC (Bld) [#/Vol] 4.20 10*6/uL Normal 3.80-5.00 [facility] Comment on above: Performed By: #### L [id number] #### [facility] ([facility]) [address] [place] [address] WBC (Bld) [#/Vol] 6.17 10*3/uL Normal 4.00-10.60 [facility] Comment on above: Performed By: #### L [id number] #### [facility] ([facility]) [address] [place] [address] COMPREHENSIVE METABOLIC PANE Oscar 07-19-2023 Albumin [Mass/Vol] 3.7 g/dL Normal 3.5-5.7 [facility] Comment on above: Performed By: #### L [id number] #### [facility] ([facility]) [address] [place] [address] ALP [Catalytic activity/Vol] 132 U/L High 34-104 [facility] Comment on above: Performed By: #### L [id number] #### [facility] ([facility]) [address] [place] [address] ALT [Catalytic activity/Vol] 17 U/L Normal 7-52 [facility] Comment on above: Performed By: #### L [id number] #### [facility] ([facility]) [address] [place] [address] Anion gap [Moles/Vol] 11 mmol/L Normal 7-20 [facility] Comment on above: Performed By: #### L [id number] #### [facility] ([facility]) [address] [place] [address] AST [Catalytic activity/Vol] 23 U/L Normal 13-39 [facility] Comment on above: Performed By: #### L [id number] #### [facility] ([facility]) [address] [place] [address] Bilirubin [Mass/Vol] 0.9 mg/dL Normal 0.3-1.[address] [facility] Comment on above: Performed By: #### L [id number] #### [facility] ([facility]) [address] [place] [address] Calcium [Mass/Vol] 10.7 mg/dL High 8.6-10.3 [facility] Comment on above: Performed By: #### L [id number] #### [facility] ([facility]) [address] [place] [address] Chloride [Moles/Vol] 104 mmol/L Normal 98-[address] [facility] Comment on above: Performed By: #### L [id number] #### [facility] [address] [place] [address] CO2 [Moles/Vol] 28 mmol/L Normal 21-31 [facility] Comment on above: Performed By: #### L [id number] #### [facility] [address] [place] [address] Creatinine [Mass/Vol] 0.66 mg/dL Normal 0.60-1.20 [facility] Comment on above: Performed By: #### L [id number] #### [facility] ([facility]) [address] [place] [address] GLOMERULAR FILTRATION RATE ML/MIN/1.73 SQ M.PREDICTED 92.0 mL/min/1.73m*2 Normal >60.[address] [facility] Comment on above: Result Comment: The [facility]???s estimated glomerular filtration rate (eGFR) will no [...] individuals. Performed By: #### L [id number] #### [facility] ([facility]) [address] [place] [place] [address] Glucose [Mass/Vol] 131 mg/dL High 70-100 [facility] Comment on above: Performed By: #### L [id number] #### [facility] ([facility]) [address] [place] [address] Potassium [Moles/Vol] 3.5 mmol/L Normal 3.5-5.1 [facility] Comment on above: Performed By: #### L [id number] #### [facility] ([facility]) [address] [facility] [place] [address] Protein [Mass/Vol] 6.8 g/dL Normal 6.0-8.3 [facility] Comment on above: Performed By: #### L [id number] #### [facility] ([facility]) [address] [place] [address] Sodium [Moles/Vol] 139 mmol/L Normal 136-145 [facility] Comment on above: Performed By: #### L [id number] #### [facility] ([facility]) [address] [place] [address] Urea nitrogen [Mass/Vol] 15 mg/dL Normal 7-25 [facility] Comment on above: Performed By: #### L [id number] #### [facility] ([facility]) [address] [place] [address] UREA NITROGEN/CREATININE (MASS RATIO) IN SER/PLAS 22.7 Normal [facility] Comment on above: Performed By: #### L [id number] #### [facility] ([facility]) [address] [place] [address] HPon 07-19-2023 [facility] Cardiology Clinic Note Chief Complaint: Patient [...] with ejection (more content not included)... Normal [facility] MAGNESIUMon 07-19-2023 Magnesium [Mass/Vol] 1.6 mg/dL Low 1.9-2.[address] [facility] Comment on above: Performed By: #### L [id number] ####[facility] ([facility])[address] [place] [address] Office Visiton 07-19-2023 Follow-up visit [id number] Darek Mejía 1950 F Date Provider Department Center 07/19/2023 Areli-OPAL CARVALHO Family History Problem Relation Age of Onset Coronary artery disease Father Diabetes Father Family Status - Relation Status Age at Father Level of Service:[address] [place] OFFICE/OUTPATIENT ESTABLISHED HIGH MDM 40-54 MIN Normal [facility] T4, FREEon 07-19-2023 THYROXINE (T4) FREE (NG/DL) IN SER/PLAS 1.31 ng/dL Normal 0.71-1.[address] [facility] Comment on above: Performed By: #### L [id number] #### [facility] ([facility]) [address] [place] [address] TSH3 REFLEX TO FT4on 023 THYROTROPIN (MIU/L) IN SER/PLAS BY DETECTION LIMIT <= 0.05 MIU/L 0.06 mIU/L Low 0.34-5.60 [facility] Comment on above: Performed By: #### L [id number] #### [facility] ([facility]) [address] [place] [address] 36on 07-02-2023 36 Sandy just did patien t's echo. She came over to the office to make us aware that she sounded like she was in afib, and patient didn't recall ever being told she had this. She did ECG. I have assigned it to you in media coordinator. Please advise. Thanks. [facility] Office Visiton 04-23-2023 Follow-up visit [id number] Darek Mejía 1950 F Date Provider Department Center 04/23/2023 Areli-OPAL CARVALHO Family History Problem Relation Age of Onset Coronary artery disease Father Diabetes Father Family Status - Relation Status Age at Father Level of Service:45070 [place] OFFICE/OUTPATIENT ESTABLISHED MOD MDM 30-39 MIN [facility] Office Visiton 01-31-2023 Follow-up visit [id number] Darek Mejía 1950 F Date Provider Department Center 01/31/2023 Brian-HAWA RUSH Family History Problem Relation Age of Onset Coronary artery disease Father Diabetes Father Family Status - Relation Status Age at Father Level of Service:33273 [place] OFFICE/OUTPATIENT ESTABLISHED MOD MDM 30-39 MIN [facility] 36on 01-11-2023 36 I am putting in a script for aldactone, then she needs BMP in 1 week to assess renal function and potassium level. Have her f/U in 2-4 weeks to review b/p please [facility] Orders Onlyon 01-11-2023 Orders Only [id number] Darek Mejía 1950 F Date Provider Department Center 01/11/2023 HAWA BACA Nya . Family History Problem Relation Age of Onset Coronary artery disease Father Diabetes Father Family Status - Relation Status Age at Father [facility] 36on 01-10-2023 35 . Normal [facility] Office Visiton 12-21-2022 Follow-up visit [id number] MayelinjocelyneAyla rosarioDarek 1950 F Date Provider Department Center 12/21/2022 HAWA BACA MARIANA [facility] Family History Problem Relation Age of Onset Coronary artery disease Father Diabetes Father Family Status - Relation Status Age at Father Level of Service:14832 [place] OFFICE/OUTPATIENT ESTABLISHED MOD MDM 30-39 MIN Reason for Visit and Comments: Coronary Artery Disease [187] Congestive Heart Failure [127] Hypertension [006967] [facility] FREE T3on 11-30-2022 FREE T3 2.19 pg/mlL Normal 2.18-3.98 [facility] Comment on above: Performed By: #### T 4, FT3, TSH #### [facility] [address] [address] [address] Rich Pham T4on 11-30-2022 T4 [Mass/Vol] 11.10 ug/dL Normal 4.80-13.90 [facility] Comment on above: Performed By: #### T 4, FT3, TSH #### [facility] [address] [address] [address] Rich Pham TSHon 11-30-2022 TSH 0.525 uIU/mL Normal 0.358-3.740 [facility] Comment on above: Performed By: #### T 4, FT3, TSH #### [facility] [address] [address] [address] Rich Pham ANES POSTPROC EVALon 023 ANES POSTPROC EVAL HNO ID: [id number] Author: David Dunn II, DO Service: Anesthesiology Author Type: Anesthesiologist Type: Anesthesia Postprocedure Evaluation Filed: 11/01/2022 12:35 PM Note Text: POST ANESTHESIA EVALUATION NOTE : 1950 Procedure Summary Date: 11/01/22 Room / Location: [address] Anesthesia Start: 1109 Anesthesia Stop: 1130 [...] November 01, 2022 TIME: 12:35 PM CSN: [id number] [facility] ANES PRE-OPon 11-01-2022 ANES PRE-OP HNO ID: [id number] Author: David Dunn II, DO Service: Anesthesiology Author Type: Anesthesiologist Type: Anesthesia Preprocedure Evaluation Filed: 11/01/2022 10:15 AM Note Text: ANESTHESIOLOGY DAY OF SURGERY NOTE : 1950 Procedure Information Date/Time: 11/01/22 1100 Procedures: PHACOEMULSIFICATION CATARACT IMPLANT INTRAOCULAR LENS W/O ENDOSCOPIC CYCLOPHOTOCOAGULATION (Left: Eye) OPHTHALMIC BIOMETRY BY PARTIAL COHERENCE INTERFEROMETRY W/INTRAOCULAR LENS POWER CALCULATION (Left: Eye) Location: [address] Surgeons: Aleksandar Wilson V, MD Estimated body mass index is 21.31 kg/m? as calculated from the following: Height as of 10/30/22: 167.6 cm (5' 6 ). Weight as of 10/30/22: 59.9 kg (132 lb). Most recent hematocrit and potassium results: Hematocrit 33.6 01/28/2020 Potassium 3.5 01/28/2020 Relevant Problems CARDIO (+) Atherosclerosis of [place] coronary artery of [place] heart without angina pectoris (+) CHF (congestive heart failure) (HCC) (+) Coronary artery disease involving coronary bypass graft of [place] heart with angina pectoris (HCC) (+) Dissection of ascending aorta (HCC) (+) Hx of CABG (+) Nonrheumatic aortic valve insufficiency (+) Primary hypertension (+) Severe aortic regurgitation GI (+) GERD (gastroesophageal reflux disease) PULMONARY (+) Other emphysema ([facility] I - PHYSICAL EVALUATION AIRWAY Patient intubated: [...] November 01, 2022 TIME: 10:09 AM CSN: [id number] [facility] OPERATIVE NOon 11-01-2022 OPERATIVE NO HNO ID: [id number] Author: Aleksandar Wilson V, MD Service: Ophthalmology Author Type: Physician Type: Operative Report Filed: 11/01/2022 11:43 AM Note Text: OPERATIVE REPORT DATE OF SERVICE: November 01, 2022 PRIMARY SURGEON: Aleksandar Wilson M.D. SIGN FABRICATOR: None Procedure(s) (LRB): PHACOEMULSIFICATION CATARACT IMPLANT INTRAOCULAR [...] corneal incision was created temporally with a [place] blade then a 2.4 mm keratome. The [...] Implant Name Type Inv. Item Serial No. Exhaust Machine Operator Lot No. LRB No. Used Action Model No. LENS IOL 0D +21 [employer] - [id number] Intraocular Lens LENS IOL 0D +21 [employer] [id number] [employer] Left 1 Implanted [id number] [...] 11:26 AM - Comanage with Dr Mccollum; [facility]1 Aleksandar WILSON MD Normal [facility] FREE T3on 10-30-2022 FREE T3 2.77 pg/mlL Normal 2.18-3.98 [facility] Comment on above: Performed By: #### F T3, TSH, BNP, T4 #### [facility] [address] [address] [address] Rich Pham HISTORY PHYSICALon 3 HISTORY PHYSICAL HNO ID: [id number] Author: Apple Gomez APRN.MORTEZA Service: ? Author [...] ACTIVE PROBLEM LIST Smoking Addiction Atherosclerosis of [place] Coronary Artery of [place] Heart Without Angina Pectoris Mild Left Ventricular Systolic Dysfunction Primary Hypertension Coronary Artery Disease Involving Coronary Bypass Graft of [place] Heart With Angina Pectoris (Hcc) Atelectasis Hypervolemia [...] OF URETHRAL STRICT HEART CATHETERIZATION 2004 at [facility] STONE SURGERY HX MASTECTOMY HX bilat [...] fevers. Neuro: No history of TIA's, stroke, CANE FLUME WATCHER tumor, impaired sensorium, (more content not included)... Normal [facility] T4on 10-30-2022 T4 [Mass/Vol] 3.40 ug/dL Critically low 4.80-13.90 [facility] Comment on above: Performed By: #### F T3, TSH, BNP, T4 #### [facility] [address] [place] [address] Dr. Rich Pham TSHon 10-30-2022 TSH 2.102 uIU/mL Normal 0.358-3.740 [facility] Comment on above: Performed By: #### F T3, TSH, BNP, T4 #### [facility] [address] [place] [address] Dr. Rich Elias 10-18-2022 CNPN Telephone (PALORA) DAREK MEJÍA ([id number]) 1950 F Date Time Provider Department 10/18/22 [facility] During your visit today, we recorded [...] Date Reviewed: 08/15/2022 Reviewed by: Jean-Claude Miles, LAWANDA - Fully Assessed Reason for Visit: Appointment [...] Resolved Smoking addiction [F17.200] 06/22/2015 Atherosclerosis of [place] coronary artery of na*06/22/2015 Mild left ventricular [...] HAVEN MORENO on 10/18/22 [facility] T3on 08-30-2022 FREE T3 1.95 pg/mlL Critically low 2.18-3.98 [facility] Comment on above: Performed By: #### F T3, TSH, BNP, T4 #### [facility] [address] [place] [address] Dr. Rich Pham T4on 08-30-2022 T4 [Mass/Vol] 8.00 ug/dL Normal 4.80-13.90 [facility] Comment on above: Performed By: #### F T3, TSH, BNP, T4 #### [facility] [address] [place], [place] [address] Dr. Rich Pham TSHon 08-30-2022 TSH 3.033 uIU/mL Normal 0.358-3.740 [facility] Comment on above: Performed By: #### F T3, TSH, BNP, T4 #### [facility] [address] [place], [place] [address] Dr. Rich Pham ECHOCARDIO M/2D COMPLETEon 1 10-17-2021 ECHOCARDIO M/2D COMPLETE Patient: DAREK MEJÍA Exam Date: 08/16/2022 : 1950 Gender:F Ordering : HAWA RUSH Admission #: [id number] Family : DR KAYLEIGH GAY . Order #: [id number] CLICK HERE TO VIEW EXAM ECHOCARDIOGRAM REPORT [...] M.D. on 08/18/2022 at 16:30 Normal [facility] BNPon 07-24-2022 Natriuretic peptide B (Bld) [Mass/Vol] 1535.0 pg/mL Critically high <=900.0 [facility] Comment on above: Performed By: #### F T3, TSH, BNP, T4 #### [facility] [address] [place] [address] Dr. Rich Pham FREE T3on 07-24-2022 FREE T3 1.90 pg/mlL Critically low 2.18-3.98 [facility] Comment on above: Performed By: #### F T3, TSH, BNP, T4 #### [facility] [address] [place] [address] Dr. Rich Pham T4on 07-24-2022 T4 [Mass/Vol] 9.10 ug/dL Normal 4.80-13.90 [facility] Comment on above: Performed By: #### F T3, TSH, BNP, T4 #### [facility] [address] [place] [address] Dr. Rich Pham TSHon 07-24-2022 TSH 1.057 uIU/mL Normal 0.358-3.740 [facility] Comment on above: Performed By: #### F T3, TSH, BNP, T4 #### [facility] [address] [place] [address] Dr. Rich Pham INSULINon 06-20-2022 Insulin 7.0 uIU/mL Normal 2.6-24.9 [facility] Comment on above: Performed By: #### F T3, TSH, BNP, T4 #### [facility] [address] [place] [address] Dr. Rich Pham BNPon 06-19-2022 Natriuretic peptide B (Bld) [Mass/Vol] 962.0 pg/mL Critically high <=900.0 [facility] Comment on above: Performed By: #### F T3, TSH, BNP, T4 #### [facility] [address] [place] [address] Dr. Rich Pham CBC AUTO DIFFon 06-19-2022 BASO # 0.1 103/ul Normal 0.0-0.1 [facility] Comment on above: Performed By: #### F T3, TSH, BNP, T4 #### [facility] [address] [place] [address] Dr. Rich Pham Basophils/100 WBC (Bld) 1.3 % Normal 0.2-2.0 [facility] Comment on above: Performed By: #### F T3, TSH, BNP, T4 #### [facility] [address] [place] [address] Dr. Rich Pham EO # 0.1 103/ul Normal 0.0-0.7 [facility] Comment on above: Performed By: #### F T3, TSH, BNP, T4 #### [facility] [address] [place] [address] Dr. Rich Pham Eosinophils/100 WBC (Bld) 1.9 % Normal 0.9-7.0 [facility] Comment on above: Performed By: #### F T3, TSH, BNP, T4 #### [facility] [address] [place] [address] Dr. Rich Pham Erythrocyte distribution width (RBC) [Ratio] 13.7 % Normal 11.0-15.0 [facility] Comment on above: Performed By: #### F T3, TSH, BNP, T4 #### [facility] [address] [place] [address] Dr. Rich Pham Hematocrit (Bld) [Volume fraction] 39.5 % Normal 36.0-48.0 [facility] Comment on above: Performed By: #### F T3, TSH, BNP, T4 #### [facility] [address] [address] [address] Rich Pham Hemoglobin (Bld) [Mass/Vol] 12.7 g/dL Normal 12.0-16.0 [facility] Comment on above: Performed By: #### F T3, TSH, BNP, T4 #### [facility] [address] [place] [address] Dr. Rich Pham IG # 0.03 10e3/ul Normal 0.00-0.03 [facility] Comment on above: Performed By: #### F T3, TSH, BNP, T4 #### [facility] [address] [place] [address] Dr. Rich Pham IG % 0.4 % Normal 0.0-0.5 [facility] Comment on above: Performed By: #### F T3, TSH, BNP, T4 #### [facility] [address] [place] [address] Dr. Rich Pham LYMPH # 2.5 103/ul Normal 1.2-3.8 [facility] Comment on above: Performed By: #### F T3, TSH, BNP, T4 #### [facility] [address] [place] [address] Dr. Rich Pham Lymphocytes/100 WBC (Bld) 32.8 % Normal 20.5-60.0 [facility] Comment on above: Performed By: #### F T3, TSH, BNP, T4 #### [facility] [address] [place] [address] Dr. Rich Pham MANUAL DIFF REQ NO Normal [facility] Comment on above: Performed By: #### F T3, TSH, BNP, T4 #### [facility] [address] [place] [address] Dr. Rich Pham MCH (RBC) [Entitic mass] 28.5 pg Normal 26.7-34.0 [facility] Comment on above: Performed By: #### F T3, TSH, BNP, T4 #### [facility] [address] [place] [address] Dr. Rich Pham MCHC (RBC) [Mass/Vol] 32.2 g/dL Normal 29.9-35.2 [facility] Comment on above: Performed By: #### F T3, TSH, BNP, T4 #### [facility] [address] [place] [address] Dr. Rich Pham MCV (RBC) [Entitic vol] 88.6 fL Normal 81.0-99.0 [facility] Comment on above: Performed By: #### F T3, TSH, BNP, T4 #### [facility] [address] [place] [address] Dr. Rich Pham MONO # 0.6 103/ul Normal 0.3-0.8 [facility] Comment on above: Performed By: #### F T3, TSH, BNP, T4 #### [facility] [address] [place] [address] Dr. Rich Pham Monocytes/100 WBC (Bld) 7.6 % Normal 1.7-12.0 [facility] Comment on above: Performed By: #### F T3, TSH, BNP, T4 #### [facility] [address] [place] [address] Dr. Rich Pham NEUT # 4.2 103/ul Normal 1.4-6.5 [facility] Comment on above: Performed By: #### F T3, TSH, BNP, T4 #### [facility] [address] [place] [address] Dr. Rich Pham Neutrophils/100 WBC (Bld) 56.0 % Normal 43.0-75.0 [facility] Comment on above: Performed By: #### F T3, TSH, BNP, T4 #### [facility] [address] [place] [address] Dr. Rich Pham Platelet mean volume (Bld) [Entitic vol] 10.4 fL Normal 9.5-13.5 [facility] Comment on above: Performed By: #### F T3, TSH, BNP, T4 #### [facility] [address] [place] [address] Dr. Rich Pham PLT 253 103/ul Normal 150-450 [facility] Comment on above: Performed By: #### F T3, TSH, BNP, T4 #### [facility] [address] [place], [place] [address] Dr. Rich Pham RBC 4.46 106/ul Normal 4.20-5.40 [facility] Comment on above: Performed By: #### F T3, TSH, BNP, T4 #### [facility] [address] [place], [place] [address] Dr. Rich Pham WBC 7.5 103/ul Normal 4.0-11.0 [facility] Comment on above: Performed By: #### F T3, TSH, BNP, T4 #### [facility] [address] [place], [place] [address] LUNG CANCER SCREENINGon [...] VASU EVANS Date: 2022-06-19 21:05 Normal [facility] FREE THYROXINE INDEX T7on FTI 2.24 Normal 1.30-4.50 [facility] Comment on above: Performed By: #### F T3, TSH, BNP, T4 #### [facility] [address] [address] [address] Rich Pham T3U 33.0 % Normal 30.0-39.0 [facility] Comment on above: Performed By: #### F T3, TSH, BNP, T4 #### [facility] [address] [address] [address] Rich Pham T4 [Mass/Vol] 6.80 ug/dL Normal 4.80-13.90 [facility] Comment on above: Performed By: #### F T3, TSH, BNP, T4 #### [facility] [address] [address] [address] Rich Pham GLYCOHEMOGLOBIN A1Con 2021 ADA RECOMMENDATION SEE BELOW Normal [facility] Comment on above: Result Comment: ADA RECOMMENDED LIMIT 4.0 - 6.0 ADA THERAPEUTIC TARGET < 7.0 ACTION SUGGESTED > 7.0 Performed By: #### F T3, TSH, BNP, T4 #### [facility] [address] [address] [address] Rich Pham Glucose [Mass/Vol] 117 mg/dL Normal [facility] Comment on above: Performed By: #### F T3, TSH, BNP, T4 #### [facility] [address] [address] [address] Rich Pham HbA1c (Bld) [Mass fraction] 5.7 % Normal 4.5-6.2 [facility] Comment on above: Performed By: #### F T3, TSH, BNP, T4 #### [facility] [address] [address] [address] Rich Pham IRONon 06-19-2022 Iron [Mass/Vol] 50.0 ug/dL Normal 50.0-170.0 [facility] Comment on above: Performed By: #### I IAM HARO #### [facility] [address] [place] [address] Dr. Rich Pham LIPID PROFILEon 06-19-2022 CHOL-HDL RATIO NORM SEE BELOW Normal [facility] Comment on above: Result Comment: 3.3 - 4.4 LOW RISK 4.4 - 7.1 AVERAGE RISK 7.1 - 11.0 MODERATE RISK >11.0 HIGH RISK Performed By: #### F T3, TSH, BNP, T4 #### [facility] [address] [address] [address] Rich Pham Cholesterol [Mass/Vol] 142 mg/dL Normal <=200 [facility] Comment on above: Performed By: #### F T3, TSH, BNP, T4 #### [facility] [address] [address] [address] Rich Pham Cholesterol in HDL [Mass/Vol] 52 mg/dL Normal 40-60 [facility] Comment on above: Performed By: #### F T3, TSH, BNP, T4 #### [facility] [address] [place] [address] Dr. Rich Pham Cholesterol in LDL [Mass/Vol] 78.8 mg/dL Normal [facility] Comment on above: Performed By: #### F T3, TSH, BNP, T4 #### [facility] [address] [address] [address] Rich Pham Cholesterol.total/Ch olesterol in HDL [Mass ratio] 2.7 {ratio} Normal [facility] Comment on above: Performed By: #### F T3, TSH, BNP, T4 #### [facility] [address] [place] [address] Dr. iRch Pham HDL NORMAL > or = 60 mg/dl - LO W CARDIOVASCULAR RISK <40 mg/dl - HIGH CARDIOVASCULAR RISK Normal [facility] Comment on above: Performed By: #### F T3, TSH, BNP, T4 #### [facility] [address] [place] [address] Dr. Rich Pham LDL CALC NORMAL SEE BELOW Normal [facility] Comment on above: Result Comment: <100 mg/dl OPTIMAL 100 - 129 mg/dl NEAR OR ABOVE OPTIMAL 130 - 159 mg/dl BORDERLINE HIGH 160 - 189 mg/dl HIGH >190 mg/dl VERY HIGH Performed By: #### F T3, TSH, BNP, T4 #### [facility] [address] [place] [address] Dr. Rich Pham Triglyceride [Mass/Vol] 56 mg/dL Normal <=150 [facility] Comment on above: Performed By: #### F T3, TSH, BNP, T4 #### [facility] [address] [address] [address] Rich Pham VLDL CALC 11.2 mg/dL Normal [facility] Comment on above: Performed By: #### F T3, TSH, BNP, T4 #### [facility] [address] [address] [address] Rich Pham PROF 14(COMP METB)on 022 Albumin [Mass/Vol] 3.5 g/dL Normal 3.4-5.0 [facility] Comment on above: Performed By: #### F T3, TSH, BNP, T4 #### [facility] [address] [place] [address] Dr. Rich Pham Albumin/Globulin [Mass ratio] 0.9 {ratio} Normal [facility] Comment on above: Performed By: #### F T3, TSH, BNP, T4 #### [facility] [address] [place] [address] Dr. Rich Pham ALP [Catalytic activity/Vol] 95 U/L Normal 46-116 [facility] Comment on above: Performed By: #### F T3, TSH, BNP, T4 #### [facility] [address] [place] [address] Dr. Rich Pham ALT [Catalytic activity/Vol] 22 U/L Normal 14-59 [facility] Comment on above: Performed By: #### F T3, TSH, BNP, T4 #### [facility] [address] [place] [address] Dr. Rich Pham Anion gap [Moles/Vol] 11.3 mmol/L Normal [facility] Comment on above: Performed By: #### F T3, TSH, BNP, T4 #### [facility] [address] [place] [address] Dr. Rich Pham AST [Catalytic activity/Vol] 21 U/L Normal 15-37 [facility] Comment on above: Performed By: #### F T3, TSH, BNP, T4 #### [facility] [address] [address] [address] Rich Pham Bilirubin [Mass/Vol] 0.4 mg/dL Normal 0.2-1.0 [facility] Comment on above: Performed By: #### F T3, TSH, BNP, T4 #### [facility] [address] [address] [address] Rich Pham Calcium [Mass/Vol] 10.4 mg/dL Critically high 8.5-10.1 [facility] Comment on above: Performed By: #### F T3, TSH, BNP, T4 #### [facility] [address] [address] [address] Rich Pham Chloride [Moles/Vol] 105 mmol/L Normal 98-107 [facility] Comment on above: Performed By: #### F T3, TSH, BNP, T4 #### [facility] [address] [place] [address] Dr. Rich Pham CO2 [Moles/Vol] 27.8 mmol/L Normal 21.0-32.0 [facility] Comment on above: Performed By: #### F T3, TSH, BNP, T4 #### [facility] [address] [address] [address] Rich Pham Creatinine [Mass/Vol] 0.94 mg/dL Normal 0.55-1.02 [facility] Comment on above: Performed By: #### F T3, TSH, BNP, T4 #### [facility] [address] [place] [address] Dr. Rich Pham EGFR-AF TURKS AND CAICOS ISLANDER >60 Normal >=60 [facility] Comment on above: Performed By: #### F T3, TSH, BNP, T4 #### [facility] [address] [address] [address] Rich Pham EGFR-NON AF TURKS AND CAICOS ISLANDER 58 mL/min/1.73m2 Critically low >=60 [facility] Comment on above: Performed By: #### F T3, TSH, BNP, T4 #### [facility] [address] [address] [address] Rich Pham Globulin (S) [Mass/Vol] 3.9 g/dL Normal [facility] Comment on above: Performed By: #### F T3, TSH, BNP, T4 #### [facility] [address] [address] [address] Rich Pham Glucose [Mass/Vol] 94 mg/dL Normal 74-106 [facility] Comment on above: Performed By: #### F T3, TSH, BNP, T4 #### [facility] [address] [address] [address] Rich Pham Potassium [Moles/Vol] 4.1 mmol/L Normal 3.5-5.1 [facility] Comment on above: Performed By: #### F T3, TSH, BNP, T4 #### [facility] [address] [place] [address] Dr. Rich Pham Protein [Mass/Vol] 7.4 g/dL Normal 6.4-8.2 [facility] Comment on above: Performed By: #### F T3, TSH, BNP, T4 #### [facility] [address] [place] [address] Dr. Rich Pham Sodium [Moles/Vol] 140 mmol/L Normal 136-145 [facility] Comment on above: Performed By: #### F T3, TSH, BNP, T4 #### [facility] [address] [place] [address] Dr. Rich Pham Urea nitrogen [Mass/Vol] 15.0 mg/dL Normal 7.0-18.0 [facility] Comment on above: Performed By: #### F T3, TSH, BNP, T4 #### [facility] [address] [place] [address] Dr. Rich Pham Urea nitrogen/Creatinine [Mass ratio] 16.0 mg/mg Normal [facility] Comment on above: Performed By: #### F T3, TSH, BNP, T4 #### [facility] [address] [place] [address] Dr. Rich Pham TSHon 06-19-2022 TSH 6.083 uIU/mL Critically high 0.358-3.740 [facility] Comment on above: Performed By: #### F T3, TSH, BNP, T4 #### [facility] [address] [address] [address] Rich Pham VITAMIN D 25 OHon 06-19-2022 VIT D 25-OH 41.3 ng/mL Normal [facility] Comment on above: Performed By: #### F T3, TSH, BNP, T4 #### [facility] [address] [address] [address] Rich Pham VIT D RANGES SEE BELOW Normal [facility] Comment on above: Result Comment: <20 ng/mL Vit D deficient 20 - <30 ng/mL Vit D insufficient 30 - 100 ng/mL Vit D sufficient >100 ng/mL Potential Toxicity Performed By: #### F T3, TSH, BNP, T4 #### [facility] [address] [place] [address] Dr. Rich Pham PROF CHEM 8 (BAS METB)on Anion gap [Moles/Vol] 11.9 mmol/L Normal [facility] Comment on above: Performed By: #### F T3, TSH, BNP, T4 #### [facility] [address] [address] [address] Rich Pham Calcium [Mass/Vol] 9.9 mg/dL Normal 8.5-10.1 [facility] Comment on above: Performed By: #### F T3, TSH, BNP, T4 #### [facility] [address] [place] [address] Dr. Rich Pham Chloride [Moles/Vol] 101 mmol/L Normal 98-107 [facility] Comment on above: Performed By: #### F T3, TSH, BNP, T4 #### [facility] [address] [address] [address] Rich Pham CO2 [Moles/Vol] 30.0 mmol/L Normal 21.0-32.0 [facility] Comment on above: Performed By: #### F T3, TSH, BNP, T4 #### [facility] [address] [address] [address] Rich Pham Creatinine [Mass/Vol] 1.10 mg/dL Critically high 0.55-1.02 [facility] Comment on above: Performed By: #### F T3, TSH, BNP, T4 #### [facility] [address] [address] [address] Rich Pham EGFR-AF TURKS AND CAICOS ISLANDER 59 mL/min/1.73m2 Critically low >=60 [facility] Comment on above: Performed By: #### F T3, TSH, BNP, T4 #### [facility] [address] [address] [address] Rich Pham EGFR-NON AF TURKS AND CAICOS ISLANDER 49 mL/min/1.73m2 Critically low >=60 [facility] Comment on above: Performed By: #### F T3, TSH, BNP, T4 #### [facility] [address] [place] [address] Dr. Rich Pham Glucose [Mass/Vol] 115 mg/dL Critically high 74-106 [facility] Comment on above: Performed By: #### F T3, TSH, BNP, T4 #### [facility] [address] [place] [address] Dr. Rich Pham Potassium [Moles/Vol] 3.9 mmol/L Normal 3.5-5.1 [facility] Comment on above: Performed By: #### F T3, TSH, BNP, T4 #### [facility] [address] [place] [address] Dr. Rich Pham Sodium [Moles/Vol] 139 mmol/L Normal 136-145 [facility] Comment on above: Performed By: #### F T3, TSH, BNP, T4 #### [facility] [address] [place] [address] Dr. Rich Pham Urea nitrogen [Mass/Vol] 15.0 mg/dL Normal 7.0-18.0 [facility] Comment on above: Performed By: #### F T3, TSH, BNP, T4 #### [facility] [address] [place] [address] Dr. Rich Pham Urea nitrogen/Creatinine [Mass ratio] 13.6 mg/mg Normal [facility] Comment on above: Performed By: #### F T3, TSH, BNP, T4 #### [facility] [address] [address] [address] Rich Pham FLUORO FOR SURGICAL PROCEDUR [...] Juvenal Cagle MD 04/10/19 Final result Normal [facility] Surgical Specimenon 04-10-20 Surgical Specimen [facility] [address] [place] [address] FINAL SURGICAL PATHOLOGY REPORT Patient Name: DAREK MEJÍA Accession No: [id number] Age Sex: 1950 Location: [facility] Account No: [id number] Collected: 04/10/2019 Med Rec No: [id number] Received: 04/10/2019 Attend Phys: ESTEBAN LÓPEZ Completed: 04/15/2019 Perform Phys: ESTEBAN LÓPEZ FINAL DIAGNOSIS: DISK TISSUE- DISK CARTILAGE WITH MARKED DEGENERATIVE CHANGES. FRAGMENTS OF BONE, MINUTE AREA SHOWING NORMAL CELLULAR BONE MARROW INCLUDING MEGAKARYOCYTES. SYNOVIAL TISSUE WITH REACTIVE CHANGES. DAVID/DAVID CLINICAL INFORMATION: Disk herniation, radiculopathy. SPECIMEN: Disc GROSS DESCRIPTION: The specimen container is labeled with the patient's name and designated spine . In formalin are multiple irregular rubbery and firm fragments of goss-red tissue measuring in aggregate 3 x 2.5 x 0.4 cm. The majority of tissue is wrapped and submitted in one cassette after decalcification. ALDWA/SCDAN CPT: 87242 X1 55017 X1 MICHELLE PEREZ M.D. 04/15/2019 Electronically signed out by Page 1 of 1 [facility] Comment on above: Performed By: #### S UR #### [place] [address] Type and Screen Capture 3 sc rn cellon 04-10-2019 Type and Screen Capture 3 scrn cell PATIENT: MICAELA OSWALD LOC: [facility] NON BILL# : [id number] : 1950 SEX: F ORDERED BY: DAVIN MERCEDES ORDERED : 04/10/2019 06:22 COLLECTED: 04/10/2019 07:21 ORDER : [id number] RECEIVED : 04/10/2019 07:21 --------- TEST NAME RESULT UNITS RANGES ABN FL ST ABORH Capture A POS F Antibody 3 Cell Scrn Captu NEG F -------- Normal [facility] Comment on above: Performed By: #### T S3C #### [place] [id number] CARDIAC STRESS TESTon 2018 [place] [address] CARDIAC STRESS TEST PATIENT NAME: DAREK MEJÍA : 1950 MED REC NO: [id number] ROOM: ACCOUNT NO: [id number] ADMIT DATE: 03/31/2019 PROVIDER: Marli Cox DO [...] function. MARLI COX DO #14:19:36 [id number] Doc#: [id number] CC: Normal [facility] Coding Summary.on 01-30-2019 Coding Summary. CODING DATE: FINAL [facility] STATUS: Home (Routine DC) PAYOR: Medicare ADMIT DX: REASON FOR VISIT DX: M54.2 Cervicalgia M25.512 Pain in left shoulder FINAL DX: PRINCIPAL: M50.30 Other cervical disc degeneration, unspecified cervical region SECONDARY: M50.20 Other cervical disc displacement, unspecified cervical region M54.12 Radiculopathy, cervical region M48.02 Spinal stenosis, cervical region Z79.899 Other retirement (current) drug therapy PROCEDURES DOCTOR NAME DATE NOTE: The code number assigned matches the documented diagnosis and / or procedure in the patient's chart. However, the narrative phrase printed from the coding software may appear abbreviated, or result in slightly different terminology. Coded By: Linh Devlin CphT Date Saved: 01/30/2019 10:45 am [facility] Coding Summary.on 01-29-2019 Coding Summary. CODING DATE: FINAL [facility] STATUS: Home (Routine DC) PAYOR: Medicare APC DESCRIPTION 5442 Level 2 Nerve Injections ADMIT DX: REASON FOR VISIT DX: M54.12 Radiculopathy, cervical region FINAL DX: PRINCIPAL: M54.12 Radiculopathy, cervical region SECONDARY: F17.210 Nicotine dependence, cigarettes, uncomplicated Z79.82 intermediate designer (current) use of aspirin Z95.1 Presence of [...] Velasquez Date Saved: 01/29/2019 08:16 am Normal [facility] Main OR Intraoperative Recor don 01-28-2019 Main OR Intraoperative Record IntraOp Document Type FTPM Summary Primary Physician: Cain Rowley MD Finalized Date/Time: 01/28/19 07:58:26 Pt. Name: DAREK MEJÍA /Sex: 1950 Female Med Rec #: [id number] Physician: Cain Rowley MD Financial #: [id number] Pt. Type: P Room/Bed: / Admit/Disch: 01/28/19 [...] Role Performed Anesthesiologist of Surgeon - Primary Rail Splitter - Primary Record Time In 01/28/19 07:53:00 01/28/19 07:53:00 01/28/19 07:53:00 Time Out 01/28/19 08:00:00 01/28/19 08:00:00 01/28/19 08:00:00 Procedure CERVICAL EPIDURAL CERVICAL EPIDURAL CERVICAL EPIDURAL STEROID INJECTION(.) STEROID INJECTION(.) STEROID INJECTION(.) Comments Last Modified By: Nettie Guthrie RN, RN, Sonja C Ward RN, Nettie Self 01/28/19 07:58:18 01/28/19 07:58:18 01/28/19 07:58:18 Entry 4 Entry 5 Entry 6 Case Attendee Josh OLIVAS, Tamanna Sun RN, Aaron Donohue Role Performed Rail Splitter - Primary Scrub - Other Contracts Director Time In 01/28/19 07:53:00 01/28/19 07:53:00 01/28/19 [...] and tissue Entry 1 Skin Integrity Intact, [place], Warm, and Skin Abnormality No Dry Outcomes [...] By: Nettie Guthrie RN 01/28/19 07:58 Normal [facility] Main OR Preoperative Recordo n 01-28-2019 Main OR Preoperative Record Holding Area Document Type FTPM Summary Primary Physician: Cain Rowley MD Finalized Date/Time: 01/28/19 07:17:16 Pt. Name: DAREK MEJÍA /Sex: 1950 Female Med Rec #: [id number] Physician: Cain Rowley MD Financial #: [id number] Pt. Type: P Room/Bed: / Admit/Disch: 01/28/19 [...] 07:14 Melina Harper RN 01/28/19 07:17 Normal [facility] Operative Reporton 9 Operative Report Patient: DAREK MEJÍA Age: 68 years Sex: Female : 1950 Associated Diagnoses: None Author: Amrik WADE, Cain Perla Procedure Procedure: Cervical Epidural Steroid Injection with [...] 96 mmHg SpO2 94 % . Normal [facility] Comment on above: Result Comment: Elec tronically Signed By: Amrik WADE, Cain Oneill.br\Date and Time Signed: 01/28/19 07:58 EDT Consultation Noteon 01-25-20 Consultation Note Result type: Progres s Note-Physician Result date: January 17, 2019 10:35 EDT Result status: Auth (Verified) Result title: Pain Managment Follow up Performed by: Marah Ferrell PA-C on January 17, 2019 10:38 EDT Verified by: Marah Ferrell PA-C on January 17, 2019 10:38 EDT Encounter info: [id number], [facility], Pain Management, 01/17/2019 - 01/17/2019 * [...] tid., # 180 tab(s), Refills(s) 0, Pharmacy: [facility]72 Documented Medications Documented NIFEdipine 30 mg [...] list: All Problems Smoker / SNOMED CT 909150519 / Confirmed Added secondary to documentation in [...] of motion. Normal strength. Integumentary: Warm, Dry, [place]. Injection site well-healed Neurologic: Alert, Oriented. Psychiatric: [...] Electronically Co-Signed By: Amrik WADE, Cain Perla [facility] Comment on above: Result Comment: [...] tid., # 180 tab(s), Refills(s) 0, Pharmacy: [facility] Documented Medications Documented NIFEdipine 30 mg [...] list: All Problems Smoker / SNOMED CT 798936958 / Confirmed Added secondary to documentation in [...] of motion. Normal strength. Integumentary: Warm, Dry, [place]. Injection site well-healed Neurologic: Alert, Oriented. Psychiatric: [...] clinic with any interval questions or concerns. [facility] Comment on above: Result Comment: [...] Teresa Velasquez Date Saved: 12/31/2018 02:30 pm [facility] Progress Note-Physicianon Progress Note-Physician Patient: [...] 21 tab(s), Refills(s) 0, Pharmacy: [facility] #72 gabapentin 300 mg Cap: See Instructions, increase dose as directed to 600 mg po tid., # 180 tab(s), Refills(s) 0, Pharmacy: [facility] Documented Medications Documented NIFEdipine 30 mg [...] list: All Problems Smoker / SNOMED CT 200906930 / Confirmed Added secondary to documentation in Social History. Histories Past Medical History: No active or resolved past medical history items have been selected or recorded., SMOKES TOBACCO Family History: No family history items have been selected or recorded. Procedure history: Mastectomy (8767013786). Hysterectomy (537799196). Cholecystectomy (25369448). CABG x 5 - Coronary artery bypass grafts x 5 ([id number]). Social History Social & Psychosocial Habits Alcohol [...] and perfusion.. Gastrointestinal: Benign, nontender.. Integumentary: Warm, [place]. Neurologic: PER PAIN CLINIC ASSESSMENT. Plan [place] [employer]esthesi[employer] (ASA) physical status classification: Class III. Anesthetic Preoperative Plan Anesthesia: Monitored anesthesia care. Anesthetic plan, risks, benefits, and alternatives discussed with the patient and/or family. Patient verbalized understanding. Informed consent was given. Communication: face to face with Pt educated on the importance of smoking cessation. [facility] Comment on above: Result Comment: Elec tronically Signed By: Stevie Linares Jr, DO\.br\Date and Time Signed: 12/31/18 15:15 EDT Main OR Intraoperative Recor don 12-30-2018 Main OR Intraoperative Record IntraOp Document Type FTPM Summary Primary Physician: Cain Rowley MD Finalized Date/Time: 12/30/18 08:22:53 Pt. Name: AYLA MEJÍAANETTE Joby/Sex: 1950 Female Med Rec #: [id number] Physician: Cain Rowley MD Financial #: [id number] Pt. Type: P Room/Bed: / Admit/Disch: 12/30/18 [...] Role Performed Anesthesiologist of Surgeon - Primary Rail Splitter - Primary Record Time In 12/30/18 08:15:00 12/30/18 08:15:00 12/30/18 08:15:00 Time Out 12/30/18 08:24:00 12/30/18 08:24:00 12/30/18 08:24:00 Procedure CERVICAL EPIDURAL CERVICAL EPIDURAL CERVICAL EPIDURAL STEROID INJECTION(.) STEROID INJECTION(.) STEROID INJECTION(.) Comments Last Modified By: [place] OLIVAS, Nettie Guthrie RN, Nettie Guthrie RN, Nettie Self 12/30/18 08:22:46 12/30/18 08:22:46 12/30/18 08:22:46 Entry 4 Entry 5 Entry 6 Case Attendee Josh OLIVAS, Tamanna Sun RN, Delmy Bermeo Performed Scrub - Primary Scrub - Other Contracts Director Time In 12/30/18 08:15:00 12/30/18 08:15:00 12/30/18 08:15:00 Time Out 12/30/18 08:24:00 12/30/18 08:24:00 12/30/18 08:24:00 Procedure CERVICAL EPIDURAL CERVICAL EPIDURAL CERVICAL EPIDURAL STEROID INJECTION(.) STEROID INJECTION(.) STEROID INJECTION(.) Comments orientee Last Modified By: Cleveland OLIVAS, Nettie Guthrie RN, Nettie Guthrie RN, Nettie [...] Nettie Self, Josh OLIVAS, Amrik Nolen MD, aCin Perla Time Out Complete 12/30/18 08:17:00 Outcomes [...] and tissue Entry 1 Skin Integrity Intact, [place], Warm, and Skin Abnormality No Dry Outcomes [...] By: Nettie Guthrie RN 12/30/18 08:22 Normal [facility] Main OR Preoperative Recordo n 12-30-2018 Main OR Preoperative Record Holding Area Document Type FTPM Summary Primary Physician: Cain Rowley MD Finalized Date/Time: 12/30/18 07:39:27 Pt. Name: DAREK MEJÍA /Sex: 1950 Female Med Rec #: [id number] Physician: Cain Rowley MD Financial #: [id number] Pt. Type: P Room/Bed: / Admit/Disch: 12/30/18 [...] By: Melina Harper RN 12/30/18 07:39 Normal [facility] Operative Reporton 9 Operative Report Patient: DAREK [...] 112 mmHg SpO2 98 % . Normal [facility] Comment on above: Result Comment: Elec tronically Signed By: Amrik WADE, Cain Perla\.br\Date and Time Signed: 12/30/18 08:23 EDT Message - General Officeon 0 12-25-2018 Message - General Office From: James Eaton ([facility] Pain Patient Manager) To: Cain Rowley MD; Sent: 12/19/2018 14:37:15 EDT Subject: Rx Patient called and said that she had been prescribed Gabapentin per her last care plan. She said it makes her sleepy and weak. She asked if she would be able to take something different. From: Marah Ferrell PA-C To: [facility] Pain Nursing Inbox; Sent: 12/20/2018 09:18:44 EDT Subject: RE: Rx DC GPN, we can try lyrica if insurance mitzi cover it. Or just proceed with injection only and see if that helps. Please let me know what she would like to try. From: Jeevan LiuGlass Curvature Gauger., Michelle ([facility] Pain Nursing Inbox) To: [facility] Pain Nursing Inbox; Sent: 12/20/2018 10:01:06 EDT Subject: pt to call back. called patient, left a message requesting a return telephone. From: Elysia Mcrae ([facility] [place] Pain Nursing Inbox) To: Marah Ferrell PA-C; Sent: 12/20/2018 13:34:17 EDT Subject: RE: pt to call back. Patient called back and stated that she will d/c the gabapentin and will just wait for injection before trying the lyrica Received a request for prior authorization for the Gabapentin from [facility] From: Elva Moreno RN ([facility] Pain Nursing Inbox) To: [facility] Pain Nursing Inbox; Sent: 12/23/2018 08:44:56 EDT Subject: Rx prior auth request Tried to call [facility] and they do not open until after 9 - will call to see if she picked this up (see notes below) and why we got this request. From: Elva Moreno RN ([facility] Pain Nursing Inbox) To: [...] request. for PA. 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 [...] is reviewed. From: Marah Ferrell PA-C To: [facility] Pain Nursing Inbox; Sent: 12/25/2018 11:05:18 EDT Subject: RE: Intractable pain injection scheduled Sunday12/30/18 I can send a medrol dose pack in if she would like to use until the injection From: Elav Moreno RN ([facility] Pain Nursing Inbox) To: [facility] Pain Nursing Inbox; Sent: 12/25/2018 11:11:14 EDT Subject: FW: Intractable pain injection scheduled Sunday12/30/18 Due Date/Time: 12/25/2018 13:00:00 EDT Left voice mail for patient to call the office From: Elva Moreno RN ([facility] [place] Pain Nursing Inbox) To: Marah Ferrell PA-C; Sent: 12/25/2018 11:14:17 EDT Subject: Dose Pack On hold pending signature Order:methylPREDNISolon e (Medrol Dosepack 4 mg Tab) 1 packet(s) Oral As Directed as directed on package labeling Qty: 21 tab(s) Duration: 6 day(s) Refills: 0 Substitutions Allowed Route To Pharmacy - [facility] Patient returned call and states she will give it a try . Approved Order:methylPREDNISolon e (Medrol Dosepack 4 mg Tab) 1 packet(s) Oral As Directed as directed on package labeling Qty: 21 tab(s) Duration: 6 day(s) Refills: 0 Substitutions Allowed Route To Pharmacy - [facility] Signed by Marah Ferrell PA-C 12/25/18 11:27:00 From: Marah Ferrell PA-C To: [facility] Pain Nursing Inbox; Sent: 12/25/2018 11:27:52 EDT Subject: RE: Dose Pack sent From: Jeevan LiuGlass Curvature GaugerElysia Fitzgerald ([facility] Pain Nursing Inbox) To: [facility] Pain Nursing Inbox; Sent: 12/25/2018 12:57:16 EDT Subject: RE: Dose Pack attempted to call patient, no answer and no voicemail From: Triny Woods ([facility] Pain Nursing Inbox) To: [facility] Pain Nursing Inbox; Sent: 12/25/2018 13:21:44 EDT Subject: RE: Dose Pack patient returned call I informed her prescription sent to pharmacy Normal [facility] Consultation Noteon 12-25-19 19 Consultation Note HOSPITAL REGULATIONS : ALL Positive [...] to 600 mg three times per day. [email or web address] Prescription Reporting System report was reviewed and is consistent with the previous medications prescribed. The patient will follow up two weeks after the injection to assess response and call the clinic with any questions or concerns. The patient agrees with plan of care. Cain Rowley M.D. lkr Dictated: 12/17/2018 #[id number] Typed: 12/19/2018 #[id number] cc: Angeles Aburto M.D. Stas Olvera MD [facility] Comment on above: Result Comment: Elec tronically Signed By: Amrik WADE, Cain Perla\.br\Date and Time Signed: 12/24/18 13:15 EDT Message - General Officeon 0 12-23-2018 Message - General Office From: Sarah Laws To: [facility] Pain Patient Manager; Sent: 12/17/2018 13:40:24 EDT Subject: [place]-Medicare [employer]-CES-12/17/18 From: Thais Nieto ([facility] [facility] Pain Patient Manager) To: [facility] Pain Clerical Inbox; Sent: 12/23/2018 13:33:03 EDT Subject: 2nd call Arleen Submitted prior auth online through [employer]. Medicare [employer] approved auth #[id number] good 12/23/18 to 03/23/19. Called patient to schedule C6/7 MAUREEN no anesthesia Dx M54.12, patients number has been changed or disconnected called Ag on patients HIPAA no answer unable to leave a message. From: Thais Nieto ([facility] [place] Pain Clerical Inbox) To: [facility] Pain Clerical Inbox; Sent: 12/23/2018 14:32:36 EDT Subject: RE: 2nd call Arleen Patient called back, scheduled procedure for 12/30/18, scheduled follow up for 01/17/19 at 10:10am. Normal [facility] Coding Summary.on 12-20-2018 Coding Summary. CODING DATE: [facility] STATUS: Home (Routine DC) PAYOR: Medicare ADMIT DX: REASON FOR VISIT DX: M54.2 Cervicalgia FINAL DX: PRINCIPAL: M54.12 Radiculopathy, cervical region SECONDARY: M50.20 Other cervical disc displacement, unspecified cervical region M50.30 Other cervical disc degeneration, unspecified cervical region Z79.82 snf (current) use of aspirin Z79.1 intermediate designer (current) use of non-steroidal anti-inflammatories (NSAID) PROCEDURES DOCTOR NAME DATE NOTE: The code number assigned matches the documented diagnosis and / or procedure in the patient's chart. However, the narrative phrase printed from the coding software may appear abbreviated, or result in slightly different terminology. Coded By: Linh Devlin CphT Date Saved: 12/20/2018 01:35 pm [facility] Coding Summary.on 12-03-2018 Coding Summary. CODING DATE: [facility] STATUS: Home (Routine DC) PAYOR: Medicare [...] result in slightly different terminology. Coded By: Claus BeauchampLinh Date Saved: 12/03/2018 01:31 pm Normal [facility] Consultation Noteon 12-04-19 19 Consultation Note HOSPITAL REGULATIONS : ALL Positive [...] injection. Stas Olvera MD gls Dictated: 11/26/2018 #[id number] Typed: 12/03/2018 #[id number] cc: Kayleigh Gay M.D. Stas Olvera MD [facility] Comment on above: Result Comment: Elec tronically Signed By: Wade WADE, Stas Napier\.br\Date and Time Signed: 12/03/18 13:16 EDT History and Physicalon 12-11 HIM IP Note OR Multisensor Intelligence Officer Normal [facility] OPERATIVE REPORTon 8 OPERATIVE REPORT [address] [address] OPERATIVE REPORTPATIENT NAME: DAREK MEJÍA : 1950MED REC NO: [id number] ROOM:ACCOUNT NO: [id number] ADMIT DATE: 12/11/2017PROVIDER: Dustin McmahonDATE OF PROCEDURE: [...] infollowup on 12/12/2017.DUSTIN MCMAHOND: 12/11/2017 11:14:16 CD/[id number]#: [id number] Doc#: [id number]: Normal [facility] Op Noteon 12-11-2017 HIM IP Note OR Multisensor Intelligence Officer Normal [facility] History and Physicalon 10-23 HIM IP Note OR Multisensor Intelligence Officer Normal [facility] OPERATIVE REPORTon 8 OPERATIVE REPORT [address] [address] OPERATIVE REPORTPATIENT NAME: DAREK MEJÍA : 1950MED REC NO: [id number] ROOM:ACCOUNT NO: [id number] ADMIT DATE: 10/23/2017PROVIDER: Dustin McmahonDATE OF PROCEDURE: [...] first 4 days postoperatively.DUSTIN MCMAHOND: 10/23/2017 11:29:16 CD/[id number]#: [id number] Doc#: [id number]: Normal [facility] Op Noteon 10-23-2017 HIM IP Note OR Multisensor Intelligence Officer [facility] Progress Noteon 10-23-2017 HIM IP Note OR Multisensor Intelligence Officer [facility] HIM IP Note OR Multisensor Intelligence Officer [facility] No Panel Information [facility] Encounters Encounter Date Encounter Type Care Provider Facility Start: 10-26-2023 Telephone encounter Mary Lou Clinton PRINCIPAL SOFTWARE ENGINEER [facility] Start: 10-23-2023 Orders Only Not In System Ref Prov [facility] Start: 10-11-2023 Orders Only Naomi Bautista RMA [facility] Comment on above: 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 Start: 07-21-2023 Evaluation and management of inpatient [facility] Start: 07-20-2023 Evaluation and management of inpatient [facility] Start: 07-20-2023 Evaluation and management of inpatient [facility] Start: 07-20-2023 Evaluation and management of inpatient [facility] Start: 07-20-2023 Evaluation and management of inpatient [facility] Start: 07-19-2023 End: 07-22-2023 Evaluation and management of inpatient [facility] Start: 07-19-2023 End: 07-19-[address] [facility] Start: 04-23-2023 End: 04-23-[address] [facility] Start: 01-31-2023 End: 01-31-2023 ambulatory [facility] Start: 12-21-2022 End: 12-21-2022 ambulatory [facility] Start: 11-30-2022 End: 12-01-[address] KAYLEIGH GAY . 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) Start: 08-15-2022 End: 08-15-2022 ambulatory ALEKSANDAR WILSON V Facility:[facility] Start: 08-15-2022 End: 08-15-2022 Patient encounter [...] End: 04-10-2019 Patient encounter procedure ESTEBAN LÓPEZ [facility] Start: 03-31-2019 End: 04-03-2019 Patient encounter procedure OLGA PARISI [facility] Start: 12-11-2017 End: 12-11-2017 Ambulatory DUSTIN Ren [facility] Start: 10-23-2017 End: 10-23-2017 Ambulatory DUSTIN Ren [facility] Start: 09-28-2017 End: 09-29-2017 Ambulatory DEFAULT PHYSICIAN Facility:[facility] Procedures Date Procedure Procedure Detail Performing Clinician Start: 10-10-2023 EGD / COLONOSCOPY Ruthie Oneill LEASING REPRESENTATIVE-WORKERS COMPENSATION ADMINISTRATOR Work Phone: Start: 10-10-2023 Level i surg [...] D RANULFO PARISI Start: 04-10-2019 NURSING COMMUNICATION Minda RANULFO PARISI Start: 04-10-2019 INITIATE OXYGEN THER [...] CREATININE W/GFR POI NT OF CARE DUSTIN PINEDOBS Start: 12-11-2017 LACTIC ACID,POINT OF CARE DUSTIN PINEDOBS Start: 12-11-2017 POCT GLUCOSE DUSTIN RICH EVE Start: 12-11-2017 POTASSIUM (POC) DUSTIN SALOME Start: 12-11-2017 SODIUM (POC) DUSTIN HILARIO BBS Start: 12-11-2017 EKG 12-LEAD DUSTIN HILARIO BBS Start: 12-11-2017 INITIATE OXYGEN THER APY PROTOCOL DUSTIN PINEDOBS Start: 12-11-2017 POC CHEM8 INCLUDES C ALC. ANION GAP DUSTIN PINEDOBS Start: 10-23-2017 DISCHARGE PATIENT NONA MCMAHON Start: 10-23-2017 Continuous pulse oximetry DUSTIN PINEDOBS Start: 10-23-2017 INITIATE OXYGEN THER APY PROTOCOL DUSTIN SALOME Start: 10-23-2017 BEDREST DUSTIN RICH BBS Start: 10-23-2017 ENCOURAGE DEEP BREAT LEANDRO AND COUGHING DUSTIN SALOME Start: 10-23-2017 NOTIFY PHYSICIAN (SPECIFY) DUSTIN SALOME Start: 10-23-2017 NURSING COMMUNICATION Clair MCMAHON Start: 10-23-2017 VITAL SIGNS DUSTIN RICH BBS Start: 10-23-2017 POCT POTASSIUM DUSTIN PINEDOBS Start: 10-23-2017 POTASSIUM (POC) DUSTIN PINEDOBS Start: 10-23-2017 INITIATE OXYGEN THER APY PROTOCOL DUSTIN SALOME Start: 10-23-2017 NOTIFY PHYSICIAN (SPECIFY) DUSTIN MCMAHON Start: 10-23-2017 VITAL SIGNS DUSTIN CHRISTOPHER Plan of Treatment Date Care Activity Detail Author Start: 01-08-2025 LIPID SCREEN LIPID SCREEN [facility] Start: 08-15-2024 Adult BMI Screening Adult BMI Screening [facility] Start: 08-15-2024 Tobacco Screening Tobacco Screening [facility] Start: 05-04-2023 COVID-19 Vaccine () COVID-19 Vaccine ( season) [facility] Start: 05-04-2023 Influenza vaccination Influenza Vaccine [facility] Start: 01-27-2023 DIABETES SCREEN [facility]ET[facility]EN [facility] [...] 2014 Fall Risk Screening Fall Risk Screening [facility] Start: 1999 Administration of varicella zoster vaccine Zoster (Shingles) Vaccine (1 of 2) [facility] Start: 1999 SHINGRIX VACCINE (1 of [...] DTaP,Tdap and Td Vaccines (1 - Tdap) [facility] Start: 1968 Urine microalbumin profile DTAP,TDAP,TD (1 - Tdap) [facility] Start: 1967 Adult BMI Follow Up Plan Adult BMI Follow Up Plan [facility] Start: 1967 ANNUAL PCP TEAM CHRONIC DISEASE VISIT ANNUAL PCP TEAM CHRONIC DISEASE VISIT [facility] Start: 1967 BP CONTROLLED (<130/80) BP CONTROLLED (<130/80) [facility] Start: 1967 HEPATITIS C SCREENING HEPATITIS C SCREENING [facility] Start: 1967 SPIROMETRY SPIROMETRY [facility] Start: 1961 Depression Screening Depression Screening [facility] Start: 1950 Medicare Annual Wellness Visit Medicare Annual Wellness Visit [facility] Start: 1950 Tobacco Counseling Tobacco Counseling [facility] [employer] [facility] Immunizations Immunization Date Immunization Notes Care Provider Fa cility 06-07-2022 unknown vaccine or immune globulin [facility] Work Phone: [facility] 05-25-2021 influenza, injectable,quadrivalent , preservative free, pediatric [facility] Work Phone: [facility] 05-25-2021 influenza virus vaccine, unspecified formulation Naomirodríguez Bautista A [facility] 09-18-2017 pneumococcal conjuga te vaccine, 13 [...] 23 valent Aleksandar Castillo MD Work Phone: [facility] Payers Date Payer Category Payer Medicare [id number] 1960 Medicare [id number] 1960 Medicare [id number] 1950 Unknown [id number] 2.16.8 [id number] 1950 Unknown [id number] 2.16.8 [id number] 1950 Unknown [id number] 2.16.84 [id number] 1950 Unknown [id number] 2.16.84 [id number] 1950 Unknown [id number] 2.16.84 [id number] 1950 Unknown [id number] 2.16.84 [id number] 1950 Unknown [id number] 2.16.84 [id number] 1950 Unknown [id number] 2.16.84 [id number] 1950 Unknown [id number] 2.16.84 [id number] 1950 Unknown [id number] 2.16.84 [id number] Unknown Social History Date Type Detail Facility [...] [facility] Start: 03-22-2021 Alcohol Comment rare/social Cleradha [facility] Start: 1950 Sex Assigned At Not on file [facility] Start: 10-14-2020 End: 08-15-2023 Tobacco use panel [facility] Childcare Unknown [facility] Start: 04-15-2018 Alcohol Comment SOMETIMES [facility] Medical Equipment Procedure Code Equipment Code Equipment Origin al Text Equipment Identifier Dates Graft Gelweave 3 0mm Straight Gelatin Polyester Woven 30cm Cardiovascular - [id number] Start: 01-10-2020 Maramec Cv 4x.5in Thk1.65mm Ptfe - [id number] Start: 07-20-2015 Maramec Thk1.65mm P tfe [id number] Cardiovascular Patch Sterile - [id number] Start: 01-10-2020 Lens Iol 0d +21. 5 Cary Uv Abs - [id number] Start: 04-13-2021 Comment on above: Description: -0.47 Patch Thk.5mm Esteban vine Pericardial [id number] Cardiovascular Resilience Durable - [id number] Start: 01-10-2020 Valve Aort 23mm Crp-Ed Thfx - [id number] Start: 01-10-2020 Clinical Notes 01-09-2020 to 10-26-2023 Telephone Encounter - Mary Lou Clinton, [facility] - 10/26/2023 9:54 AM ESTTelephone Encounter - Mary Lou Clinton, [facility] - 10/26/2023 9:54 AM XIOMARA Baptiste - 10/30/2022 3:19 PM EST Note Date & Type Note Facility 10-26-2023 Miscellaneous Notes ----- Message from Rylan Zhang DO sent at 10/24/2023 12:58 PM EST ----- Please let patient know that she had gastritis as well as reflux esophagitis and should continue to take her pantoprazole 40 mg daily but if she has breakthrough symptomatology she should increase it to twice a day for 6 weeks and then back down to once a day. Otherwise she may follow up p.r.n. with me. Thanks, Dr. Hernandez documented in this encounter [facility] 10-26-2023 Telephone encounter Note ----- Message from Rylan Zhang DO sent at 10/24/2023 12:58 PM EST ----- Please let patient know that she had gastritis as well as reflux esophagitis and should continue to take her pantoprazole 40 mg daily but if she has breakthrough symptomatology she should increase it to twice a day for 6 weeks and then back down to once a day. Otherwise she may follow up p.r.n. with me. Thanks, [facility]. Hernandez [facility] Note [facility] Cardiology Clinic Note Chief Complaint: Patient here for follow up [facility]. Underwent heart cath and AMITA on 07/20 [...] Severe obstructive karley (more content not included)... [facility] 07-22-2023 Note 07/22/23 1106 Home Oxygen Therapy Evaluation Pulse Oximetry on room air at Rest 87 Pulse Ox on O2 with nasal cannula while at rest 95 (placed patient on 2lpm via nasal cannula) Patient Qualification for home oxygen Qualifies $ Pulse Oximetry Single [facility] 07-22-2023 Note Hospital Medicine Discharge Summary Final Discharge Diagnosis: Newly diagnosed Atrial fibrillation, CHADVASc of 5 s/p AMITA Cardioversion Post cardioversion bradycardia Severe Bioprosthetic Aortic valve stenosis Admission Diagnosis: Atrial fibrillation ([facility] [I48.91] Hospital course: Darek Mejía [...] any surgical versus TAVR procedure. Dear Dr. Beulah MD, Darek is advised to follow up [...] 100-62.5-25 mcg blister with device Generic drug: mkprczycdst-qakybkmqq-wmhrypwo STOP taking these medications carvedilol 12.5 mg tablet Commonly known as: Coreg Where to Get Your Medications These medications were sent to [facility]/pharmacy #[id number] [place] [address] apixaban 5 mg tablet Darek is allergic [...] rales or rh (more content not included)... [facility] 07-22-2023 Note Attestation signed by Kvng Bustamante [...] 124 QT Interval 462 QTC CALCULATION(BAZETT) 412 R-[place] -64 T Wave [place] -82 Impression Wide QRS rhythm Left anterior fascicular block Left ventricular hypertrophy with QRS widening and repolarization abnormality ( [place] product ) Cannot rule out Septal infarct [...] with QRS widening and repolarization abnormality ( [place] product ) Cannot rule out Septal infarct [...] CABG x5 with revesion in 2020 at [facility] ([facility], rSVG- Diagonal, SVG-OM, SVG-PDA-PLV) [...] potassium above 4 Cardiology will follow along. Ayman Julisa, MD PGY-2 Internal Medicine Resident [facility] 07-21-2023 Note Physical Therapy Physical Therapy [...] artery disease involving coronary bypass graft of [place] heart with angina pectoris (CMS/HCC) Dyslipidemia Encounter [...] Level of Function Prior Function Level of Kerr: Independent with ADLs and functional transfers, Independent [...] to walk i (more content not included)... [facility] 07-21-2023 Note Hospital Medicine Daily Progress Note - 07/21/2023 11:41 AM; Room: [facility] Admission: 07/19/2023 8:09 PM; Length of stay: 2 days THE HOSPITALIST TEAM PREFERS TO USE [employer] CHAT FOR COMMUNICATION 7AM-7PM. IF I DO NOT RESPOND WITHIN 15 MINUTES, PLEASE PAGE ME/CALL THROUGH THE BELT LINE FEEDER. FROM 7PM-7AM, PLEASE PAGE [phone](COVR) Code Status: Full Code Barriers to Discharge: [...] CABG x5 with revesion in 2019 at [facility] ([facility], rSVG- Diagonal, SVG-OM, SVG-PDA-PLV) [...] dissection repair with bioBentall surgical procedure in 2019. Coronary CTA if there is further need [...] FREET4 1.14 07/21/2023 No results found for: [id number], IRON, TIBC, C3, C4, MIRIAM, CANCA, ASO, PSA, CEA, CA125, CA199, AFP, CA153 Imaging ECG 12 lead Wide QRS rhythm Left anterior fascicular block Left ventricular hypertrophy with QRS widening and repolarization abnormality ( [place] product ) Cannot rule out Septal infarct , age undetermined Abnormal ECG When compared with ECG of 20-JUL-2023 12:58, Wide QRS rhythm has replaced Sinus rhythm Discharge Planning Discharge Planning Has discharge transport been arranged?: Yes OT Discharge Recommendations: Home Signed Ulysses Fuller (more content not included)... [facility] 07-21-2023 Note Attestation signed by Kvng Bustamante [...] 124 QT Interval 462 QTC CALCULATION(BAZETT) 412 R-[place] -64 T Wave [place] -82 Impression Wide QRS rhythm Left anterior fascicular block Left ventricular hypertrophy with QRS widening and repolarization abnormality ( [place] product ) Cannot rule out Septal infarct [...] with QRS widening and repolarization abnormality ( [place] product ) Cannot rule out Septal infarct [...] CABG x5 with revesion in 2019 at [facility] (CH-LAD, rSVG- Diagonal, SVG-OM, SVG-PDA-PLV) [...] bradycardia with amiodar (more content not included)... [facility] 07-21-2023 Note Called re pt with br adycardia and frequent pvcs Recent labs reviewed will check free T4/T3 since tsh 0.06 consider readjusting doses check troponins hold coreg ekg staff to notify cardiology serum calcium high normal check vit d and repeat cmp [facility] 07-20-2023 Note Procedure Report PROCEDURE: synchronized cardioversion INDICATION: atrial fibrillation, persistent BELT LINE FEEDER: Gallo Knowles M.D. ANESTHESIA: conscious sedation TECHNIQUE: [...] sinus rhythm. There were no apparent complications. [facility] 07-20-2023 Note Hospital Medicine Daily Progress Note - 07/20/2023 12:37 PM; Room: 3137/3137-01 Admission: 07/19/2023 8:09 PM; Length of stay: 1 days THE HOSPITALIST TEAM PREFERS TO USE [employer] CHAT FOR COMMUNICATION 7AM-7PM. IF I DO NOT RESPOND WITHIN 15 MINUTES, PLEASE PAGE ME/CALL THROUGH THE BELT LINE FEEDER. FROM 7PM-7AM, PLEASE PAGE [phone](COVR) Code Status: Full Code Barriers to Discharge: [...] CABG x5 with revesion in 2019 at [facility] (CH-LAD, rSVG- Diagonal, SVG-OM, SVG-PDA-PLV) [...] FREET4 1.31 07/19/2023 No results found for: [id number], IRON, TIBC, C3, C4, MIRIAM, CANCA, ASO, [...] in the epigastric (more content not included)... [facility] 07-20-2023 Note Clinical Nutrition A ssessment Name: [...] based on: actual body weight Calorie needs: 5734-8175 kcals/day based on Equation: 25-30 kcal/kg Protein needs: 65-82 g/day based on 1.2-1.5 g/kg -underweight. Lean body mass preservation Dietary Orders (From admission, onward) Start Ordered 07/20/23 0720 Diet NPO Diet effective now Comments: Sips with medications Question: Reason for NPO: Answer: Operation/Procedure 07/20/23 07 Nutrition Risk: High Nutrition Diagnosis: underweight related [...] with questions and contact the dietitian via [employer] chat 8A-4P Sunday-Sunday. Or call the dietitian's office at extension [phone]. For weekends/holidays, the dietitian's can be reached by paging [phone] from -. Unable to be reached via [employer] chat on Sunday & .) [facility] 07-20-2023 Note Occupational Therapy Occupational Therapy Evaluation [...] artery disease involving coronary bypass graft of [place] heart with angina pectoris (CMS/HCC) Dyslipidemia Encounter [...] Level of Function Prior Function Level of Kerr: Independent with ADLs and functional transfers, Independent [...] Eating meals?: None (Independent) Total Score OT AMPAC: 21 Assessment/Plan OT Assessment OT Impairments: Decreased ADL status, Decreased endurance, Decreased functional mobility OT Assessment/MARCO A Summary: (needs skilled OT for generalized weakness and fatigue) Prognosis: Good Evaluation/Treatment Tolerance: Patient limited by fatigue Medical Staff Made Aware: Yes OT Education/Comments: (ws/ec/pacing , ae/dme that may improve endurance for adls at home , all with good verbal return) Plan Level of assist: 1 assist Treatment Interventions: ADL retraining, Fu (more content not included)... [facility] 07-20-2023 Note Hospital Medicine History and Physical 07/19/2023 10:58 PM THE HOSPITALIST TEAM PREFERS TO USE [employer] CHAT FOR COMMUNICATION 7AM-7PM. IF I DO NOT RESPOND WITHIN 15 MINUTES, PLEASE PAGE ME/CALL THROUGH THE BELT LINE FEEDER. FROM 7PM-7AM, PLEASE PAGE [phone](COVR) Chief Complaint No chief complaint on file. History of Present Illness Darek Mejía is an 73 y.o. female admitted from home per recommendation by her take off man who saw her in the office and [...] Problem List Diagnosis Date Noted Atrial fibrillation ([facility] 07/19/2023 GERD (gastroesophageal reflux disease) 10/30/2022 Other emphysema ([facility]) 10/30/2022 Combined forms of age-related cataract of both eyes 04/13/2021 Pleural effusion 01/19/2020 Encounter for support and coordination of transition of care 01/15/2020 Moderate protein-calorie malnutrition ([facility]) 01/11/2020 Hx of CABG 01/10/2020 Nonrheumatic aortic valve insufficiency 01/09/2020 Dyslipidemia 03/25/2019 Macular hole of right eye 10/23/2017 Ischemic heart disease, chronic 08/24/2015 Chronic systolic heart failure ([facility]) 07/24/2015 CHF (congestive heart failure) ([facility]) 07/24/2015 Hypervolemia 07/23/2015 Atelectasis 07/21/2015 Coronary artery disease involving coronary bypass graft of [place] heart with angina pectoris ([facility]) 07/19/2015 Mild left ventricular systolic dysfunction 06/22/2015 Benign hypertensive cardiomyopathy with heart failure ([facility]) 06/22/2015 Smoking addiction 06/22/2015 Bradycardia [...] ordered as approp (more content not included)... [facility] 07-19-2023 Note [facility] Card[facility] Clinic Note Chief Complaint: Patient [...] motion with ejection (more content not included)... [facility] 04-23-2023 Note [facility] Clinic Note Chief Complaint: Patient [...] and at bedtime., Disp: , Rfl: Bolivar Azevedota 100-62.5-25 mcg blister with device, , Disp: [...] of ventricular bigeminy. (more content not included)... [facility] 01-31-2023 Note Continue GDMT- ASA, lipitor, coreg continue risk factor modifications- heart healthy diet, regular exercise as tolerated and continue all medications. [facility] 01-31-2023 Note [facility] II- currently e uvolemic without excaerbation Continue GDMT- ASA, lipitor, coreg, lisinopril and aldatone Diuretic therapy- lasix every other day Monitor daily weights, I&O, fluid restriction 1.5-2L/day, renal function and electrolytes- [facility] 01-31-2023 Note Stable- continue all meds [facility] 01-31-2023 Note Review of B/P log an d her HTN is much better controlled with addition of aldactone. K+ level remains normal and renal function is stable for her. Denied lightheadedness/dizziness Continue aldactone, lisinopril, coreg and lasix QOD [facility] 01-31-2023 Note Patient here for 2 m [...] All other systems reviewed and are negative. [facility] 01-31-2023 Note [facility] CARDIOLOGY PROGR ESS NOTE [...] all meds Chronic systolic heart failure (CMS/HCC) [facility] II- currently euvolemic without excaerbation Continue GDMT- ASA, lipitor, coreg, lisinopril and aldatone Diuretic therapy- lasix every other day Monitor daily weights, I&O, fluid restriction 1.5-2L/day, renal function and electrolytes- Coronary artery disease involving coronary bypass graft of [place] heart with angina pectoris (CMS/HCC) Continue GDMT- ASA, lipitor, coreg continue risk factor modifications- heart healthy diet, regular exercise as tolerated and continue all medications. RTC 3 months with repeat BMP in 1 week [facility] 01-11-2023 Note Review of b/p log sh ows HTN remains uncontrolled at home- will add aldactone to regime and repeat BMP in 1 week to assess renal function and potassium level Have pt RTC in 2-4 weeks- message sent to Quyen Vernon MA. [facility] 01-11-2023 Note Benign hypertensive cardiomyopathy with heart [...] Release to Patient Answer: Immediately Hawa Rush LOG [facility] Division of Cardiology, [facility]- [phone] Pager- [phone] Email- [email or web address] 12-21-2022 Note [facility] II- currently e uvolemic without exacerbation Continue GDMT- ASA, lipitor, coreg, lisinopril Diuretic therapy- lasix qod Monitor daily weights, I&O, fluid restriction 1.5-2L/day, renal function and electrolytes- [facility] 12-21-2022 Note Coronary artery dise ase is stable Continue GDMT continue risk factor modifications- heart healthy diet, regular exercise as tolerated and continue all medications. [facility] 12-21-2022 Note stable: [facility] 12-21-2022 Note Currently stable wit hout any concerning symptoms [facility] 12-21-2022 Note Reviewed echocardiog ashwini with pt from 08/2022 No concerning symptoms currently Will repeat echo at 1 year- or Aug 2023 [facility] 12-21-2022 Note Hypertension is elev ated in office each time she is here most likely r/t white coat syndrome. States b/p typically at home is 130's/70 with occasional 140/80 Continue all meds [facility] 12-21-2022 Note Continue lipitor 80 mg [facility] 12-21-2022 Note Patient here for 4 m [...] All other systems reviewed and are negative. [facility] 12-21-2022 Note [facility] CARDIOLOGY PROGR ESS NOTE [...] Last lab values have been reviewed CV Testin/14/22 No echocardiogram results found for the past [...] at 1 yea (more content not included)... [facility] 10-30-2022 Note HNO ID: [id number] Author: XIOMARA Farmer Service: ? Author Type: Newscast Director Type: Progress Notes Filed: 10/30/2022 3:28 PM Note Text: CONFIRM AIM PLANO LEFT EYE. XIOMARA Farmer [facility] 10-30-2022 History of Present illness Narrative CONFIRM [...] encounter [facility] 08-15-2022 Note HNO ID: [id number] Author: Aleksandar Wilson V, MD Service: ? [...] and surgery - Comanage with Dr Mccollum; [facility] POD #1 Cataract Presurgical Documentation Cataract: [...] patient was offered a surgery/procedure at a [facility]. The surgeon/proceduralist and patient have discussed in [...] form. -F/U [address] Mccollum ([facility]) The documentation recorded by the scribe accurately reflects the service I personally performed and the decisions made by me. I have confirmed and edited as necessary the relevant ophthalmic history, ROS, and the exam findings as obtained by others. I have seen and examined Darek Underwoodmonicamarlene. I also have reviewed and agree with the ass (more content not included)... [facility] 08-15-2022 Note HNO ID: [id number] Author: Jean-Claude Miles OD Service: ? Author Type: BOOKING PRIZER Type: Progress Notes Filed: 08/15/2022 3:51 PM [...] Miles, OD August 15, 2022 3:07 PM [facility] 08-15-2022 History of Present illness Narrative The [...] and surgery - Comanage with Dr Mccollum; [facility] POD #1 Cataract Presurgical Documentation Cataract: [...] form. -F/U [address] Mccollum ([facility]) The documentation recorded by the scribe [...] Dental: N/A PFT's: N/A ( per CTS material scheduler - Per Dr. Dolores henry to proceed [...] inotropic support postoperatively. Plan: Epinephrine weaned off /10. Titrate Dobutamine infusion to maintain CI >2.2. [...] Dental: N/A PFT's: N/A ( per CTS material scheduler - Per Dr. Bernal okay to proceed [...] Dental: N/A PFT's: N/A ( per CTS material scheduler - Per Dr. Bernal okay to proceed [...] Dental: N/A PFT's: N/A ( per CTS material scheduler - Per Dr. Bernal okay to proceed [...] of this encounter (statuses as of 10/31/2022) [facility] PCO (posterior capsular opacification), right- Primary After-cataract, unspecified Pseudophakia, right eye Lens replaced by other means Combined forms of age-related cataract of left eye Other and combined forms of senile cataract Full thickness macular hole, right [facility] Diagnosis Combined forms of age-related cataract of left eye- Primary Other and combined forms of senile cataract [facility] Diagnosis Combined forms of age-related cataract of left eye- Primary Other and combined forms of senile cataract Combined forms of age-related cataract of left eye Other and combined forms of senile cataract [facility] Diagnosis 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 Family history of colon cancer Family history of malignant neoplasm of gastrointestinal tract [facility] filedocumented in this [facility] filedocumented in this [facility] Summary Purpose Family History No Family History Records FoundNo Family History Records FoundNo Family History Records FoundNo Family History Records FoundNo Family History Records FoundNo Family History Records FoundNo Family History Records Found Advance Directives Documents on File Type Date Recorded 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 DATE CREATED AUTHOR AUTHOR'S ORGANIZ ATION 04/19/2019 [facility] DATE CREATED AUTHOR AUTHOR'S ORGANIZ ATION 08/22/2019 [facility] Man[facility] DATE CREATED AUTHOR AUTHOR'S ORGANIZ ATION 11/02/2022 [facility] DATE CREATED AUTHOR AUTHOR'S ORGANIZ ATION 12/09/2022 [facility] [place] DATE CREATED AUTHOR AUTHOR'S ORGANIZ ATION 09/10/2023 [facility] Source Comments (unrecognize d section [...] Darian Coy OD [address] [place] [address] [address] Referral ID Status Reason Start Date Expiration Date Visits Re quested Visits Authorized [id number] Closed 03/21/2022 09/27/2022 1 1 Reason Comments Appointment Reason Comments Pre-Op Exam Care Teams (unrecognized sec tion and content) Relationship Mgr Relationship Specialty Start Date End Date Kayleigh Gay MD PCP - General Family Medicine 06/17/15 Kayleigh Gay MD Family Medicine 06/17/15 Relationship Mgr Relationship Specialty Start Date End Date Kayleigh Gay MD PCP - General Family Medicine 06/17/15 Kayleigh Gay MD Family Medicine 06/17/15 Relationship Mgr Relationship Specialty Start Date End Date Kayleigh Gay MD PCP - General Family Medicine 06/17/15 Kayleigh Gay MD Family Medicine 06/17/15 Relationship Mgr Relationship Specialty Start Date End Date Kayleigh Gay MD PCP - General Family Medicine 06/17/15 Kayleigh Gay MD [facility] 06/17/15 Relationship Mgr Relationship Specialty Start Date End Date Kayleigh Gay MD [address] [place] [address] PCP General 04/15/18 Relationship Mgr Relationship Specialty Start Date End Date Kayleigh Gay MD [address] [place] [address] PCP - General 04/15/18 FOR RECORDS PERTAINING [...] BE BASED ON THE PRIMARY CLINICAL RECORDS. [facility] [employer] [facility]. provides no warranty or guarantee of the accuracy or completeness of information in this document.
== END 2023-12-14 08:30 | disposition home or self-care (01) ==
LOC: NM 08:29
PROVIDERS: PCP Family Medicine; Visit Provider Internal Medicine Interventional Cardiology
DX: I49.3 Ventricular premature depolarization (principal); I50.22 Chronic systolic (congestive) heart failure
CPT/HCPCS: 78452; A9500

== ENCOUNTER 2023-12-19 09:32 | Outpatient (OUT) | payer MEDICARE, SELFPAY ==
--- NOTE | 2023-12-19 | PCN_ITS ---
CARDIAC STRESS TEST Requesting Physician: Procedure Date: 12/19/2023 DIAGNOSIS: Heart failure with reduced ejection fraction, chest pain. METHODS: After risks, benefits, and alternatives were explained, written informed consent was obtained. The patient was brought to the stress lab in the resting and fasting state. Lexiscan 0.4 mg was infused intravenously. She was monitored for the standard duration and discharged in a stable state. FINDINGS: HEMODYNAMICS: Resting heart rate was 64 beats per minute, increasing to a maximum of 71 beats per minute. Resting blood pressure was 162/74, with a maximum blood pressure of 168/76. ELECTROCARDIOGRAPHY: Rest EKG shows sinus rhythm, frequent premature ventricular contractions, left ventricular hypertrophy with QRS widening and ST-T wave changes. Abnormal EKG. During infusion and recovery, premature ventricular contractions were noted. Premature supraventricular contractions were seen. No significant changes to the ST-T wave changes. FINAL IMPRESSIONS: 1. No significant changes on Lexiscan pharmacological stress test in a patient with an abnormal resting EKG. 2. Nuclear images are to read, interpreted and reported in a separate dictation. [facility] CENTERM[facility]
[2023-12-19] MEDS: REGADENOSON 0.4 MG/5 ML SYRINGE 0.400000000000000022 MG IV (10:26)
== END 2023-12-19 09:33 | disposition home or self-care (01) ==
LOC: CARD 09:33
PROVIDERS: PCP Family Medicine; Visit Provider Internal Medicine Interventional Cardiology
DX: I49.3 Ventricular premature depolarization (principal); I50.22 Chronic systolic (congestive) heart failure
CPT/HCPCS: 93017; J2785

== ENCOUNTER 2023-12-31 10:23 | Outpatient (OUT) | payer MEDICARE, SELFPAY ==
--- NOTE | 2023-12-31 10:28 | CT_ITS ---
The [address] [address] Patient Name: DAREK HINOJOSA MRN: [id number] date: 1950 Sex: F Assigned Patient Location: CT Current Patient Location: ED.MAIN Accession/Order Number: [id number] Exam Date: 12/31/2023 10:47 Report Date: 12/31/2023 11:30 At the request of: YADIEL CODROBA Procedure: CT chest wo con EXAM: CT chest wo con HISTORY: Other Nonspecific Abnormal Findings Of Lung Field R91.8 COMPARISON: 07/02/2023. TECHNIQUE: CT imaging obtained through the chest without intravenous contrast. Coronal and axial MIP reformatted images obtained. FINDINGS: The heart is enlarged. Status post CABG changes. Graft repair of the ascending thoracic aorta. 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 The pulmonary artery is significantly enlarged suggesting pulmonary hypertension. No thoracic lymphadenopathy. Central tracheobronchial tree is patent. No pleural effusion or pneumothorax. The patchy nodular opacities and consolidation previously seen in the lingula and left lower lobe have essentially resolved. There is some minimal residual scar/atelectasis in the lingula. No change in a chronic appearing bandlike density in the inferomedial right lower lobe. Severe centrilobular emphysema. Few, additional scattered tiny nodules otherwise not significantly changed. Bones and soft tissues: No suspicious bone findings. Degenerative changes throughout the thoracic spine. Median sternotomy wires intact. Healing callus for a nondisplaced fracture of the anterior right fifth rib. Partially imaged upper abdomen: Limited. CT/CT chest wo con IMPRESSION: 1. Interval resolution in the patchy nodular and consolidative opacities in the lingula and left lower lobe. 2. Healing nondisplaced anterior right fifth rib fracture. Lung RADS 2 Electronically authenticated by: LYRIC LE Date: 12/31/2023 11:30
--- OUTSIDE RECORDS SUMMARY | 2023-12-31 10:41 | XMS_ITS | CCD ---
Author Organization [facility] Care Team Providers Care 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 Name Role Phone SALOME DUSTIN K Unavailable Unavailable SALOME, DUSTIN K Unavailable Unavailable HOKELLY NelsonLAS M Unavailable Unavailable SALOME, DUSTIN K Unavailable Unavailable SALOME, DUSTIN K Unavailable Unavailable KAYLEIGH GAY M Unavailable Unavailable PHYSICIAN, DEFAULT Unavailable Unavailable PHYSICIAN, DEFAULT Unavailable Unavailable OLGA PARISI I Referring Unavailable KAYLEIGH GAY Primary Care Unavailable RENE, ESTEBAN H. Admitting Unavailable RENE, ESTEBAN H. Attending Unavailable KAYLEIGH GAY Primary Care Unavailable Kayleigh Gay MD Primary Care Provider Kayleigh Gay MD Unavailable KATIE V, ALEKSANDAR Referring Unavailable KATIE V, ALEKSANDAR Attending Unavailable KAYLEIGH GAY Primary Care Unavailable KATIE V, ALEKSANDAR Referring Unavailable KAYLEIGH GAY M Primary Care Unavailable KATIE V, ALEKSANDAR Admitting Unavailable KATIE V, ALEKSANDAR Referring Unavailable KATIE V, ALEKSANDAR Attending Unavailable KAYLEIGH GAY M Primary Care Unavailable KATIE V, ALEKSANDAR Referring Unavailable KAYLEIGH GAY M Primary Care Unavailable KATIE V, ALEKSANDAR Referring Unavailable KAYLEIGH GAY M Primary Care Unavailable DEIDRA ., DR [...] Care Unavailable ELTAHAWY, DR RAMIREZ Consulting Unavailable Vishaly Kayleigh WADE Primary Care Provider [phone] SANAULLAH, MAHAMED Referring Unavailable SANAULLAH, MAHAMED Referring Unavailable IVANIA, HANI Referring Unavailable ELTAHAWY, EHAB Attending Unavailable ADRI, HAWA Attending Unavailable ADRI, HAWA Attending Unavailable JAY, DAVID Attending Unavailable ELTAHAWY, EHAB Attending Unavailable ELTAHAWY, EHAB Attending Unavailable ELTAHAWY, EHAB Attending Unavailable IVANIA, HANI Referring Unavailable ELTAHAWY, EHAB Referring Unavailable SHEILA, WHITNEY Admitting Unavailable IVANIA, HANI Attending Unavailable SHEILA, WHITNEY Referring Unavailable Allergies Allergy Classification Reported Allergen(s) Allergy Type Date of Onset Reaction(s) Facility (10 sources) Allopurinol; Translations: [ALLOPURINOL] Drug Allergy 5 Intolerance, Other (See Comments) [facility] (9 sources) diphtheria toxoid vaccine, inactivated / tetanus toxoid vaccine, inactivated; Translations: [TETANUS AND DIPHTHER. TOX (PF)] Drug Allergy 8 Intolerance [facility] (5 sources) Isosorbide; Translations: [ISOSORBIDE MONONITRATE] Drug Allergy 6 Intolerance [facility] (8 sources) tetanus toxoid vaccine, inactivated; Translations: [TETANUS TOXOID ADSORBED] Drug Allergy 5 Other: See Comments [facility] (4 sources) Isosorbide Dinitrate; Translations: [ISOSORBIDE DINITRATE] Drug Allergy 6 Nausea And Vomiting [facility] (4 sources) Spironolactone; Translations: [SPIRONOLACTONE ] Drug Allergy 3 [facility]om[facility] (1 source) TETANUS VACCINES AND TOXOID; Translations: [TETANUS VACCINES AND TOXOID] Propensity to adverse reactions to drug (disorder) 5 [facility] Repository Medications Current Medications Medication Drug Class(es) [...] Active Start: 05-09-2022 take 1 capsule by [facility] once daily Cholecalciferol, Vitamin D3, 50 mcg (2,000 unit) cap cholecalciferol (vitamin D3) 50 mcg (2,000 unit) capsule TAKE 1 CAPSULE BY MOUTH EVERY DAY 0 05/09/2022 Active Comment on above: cholecalciferol (vit acosta D3) 50 mcg (2,000 unit) capsule TAKE 1 CAPSULE BY MOUTH EVERY DAY dapagliflozin 10 mg oral tablet (3 sources) Sodium-Glucose Cotransporter 2 Inhibitor Start: End: [...] Start: 07-21-2022 take 1 puff(s) by mo ut once daily TRELEGY ELLIPTA 100-62.5-25 mcg inhalation [...] Comment on above: USE DIRECTED BY P HYSICIAN, IN OPERATIVE EYE, BEGINNING ONE DAY AFTER SURGERY Problems Active Problems Problem Classification Problem Date Documented Date Episodic/Chronic Aortic; peripheral; 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; 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] Onset: 01-09-2020 01-22-2020 Chronic Cardiac dysrhythmias (4 sources) Paroxysmal atrial fibrillation; Translations: [Unspecified atrial fibrillation] Onset: 07-19-2023 Chronic Cataract (10 sources) After-cataract of right eye; [...] Coronary atherosclerosis; Translations: [Atherosclerotic heart disease of [place] coronary artery without angina pectoris] Onset: 06-22-2015 [...] other specified circumstances] Onset: 01-15-2020 01-23-2020 Episodic Cardiac dysrhythmias (4 sources) Tachycardia, unspecified; Translations: [Bradycardia, unspecified] Onset: 12-01-2022 Episodic Coronary atherosclerosis and other heart disease [...] Name Value Interpretation Reference Range Facility 36on 12-20-2023 36 Regarding stress gray t result from 12/14/2023: MD Karishma Crenshaw MA Will obtain a Lexiscan stress test: invasive angiography was only able to visualize the CH graft. If significant ischemia is seen, will need to consider coronary/graft CTA Please reassure the patient that no ischemia was seen on the stress test; we do not need to repeat a catheterization or consider CTA. Thank you Patient informed and verbalized understanding. Normal [facility] Office Visiton 12-18-2023 Follow-up visit [id number] Darek Mejía 1950 F Date Provider Department Center 12/18/2023 DAVID JULIEN Hos Family History Problem Relation Age of Onset Coronary artery disease Father Diabetes Father Family Status - Relation Status Age at Father Level of Service:52062 SD OFFICE/OUTPATIENT NEW MODERATE MDM 45 MINUTES Normal [facility] Office Visiton 10-31-2023 Follow-up visit [id number] Darek Mejía 1950 F Date Provider Department Center 10/31/2023 OPAL VIVEORS Justin Hos Family History Problem Relation Age of Onset Coronary artery disease Father Diabetes Father Family Status - Relation Status Age at Father Level of Service:97204 [place] OFFICE/OUTPATIENT ESTABLISHED HIGH MDM 40 MIN [facility] EGD / Colonoscopyon 10-10-19 24 [facility] Surgical PathologyOrdered By : Naomi Bautista on 10-10-2023 [facility] Orders Onlyon 09-05-2023 Orders Only [id number] Darek Mejía N 1950 Date Provider Department Center 09/05/2023 NARAYAN RODRIGUEZ MARIANA Castellano Hos Family History Problem Relation Age of Onset Coronary artery disease Father Diabetes Father Family Status - Relation Status Age at Father [facility] 36on 08-17-2023 36 6 weeks s/p cardioversion would be 08/31/2023. Judy at Dr. Zhang' office made aware via fax. [facility] [address] Willian henderson' office called requesting Darek Coombs 3 days prior to EGD/colonscopy scheduled on 09/05/2023. Please advise. [facility] Office Visiton 08-01-2023 Follow-up visit [id number] Darek Mejía N 1950 Provider Department Center 08/01/2023 271-OPAL CARVALHO MARIANA Roy Family History Problem Relation Age of Onset Coronary artery disease Father Diabetes Father Family Status - Relation Status Age at Father Level of Service:63354 SD OFFICE/OUTPATIENT ESTABLISHED HIGH MDM 40-54 MIN [facility] 30on 07-22-2023 30 Problem: Pain - [...] dysrhythmias or at baseline Outcome: Progressing Normal [facility] 30 The patient is Moderately Stable - [...] dysrhythmias or at baseline Outcome: Progressing Normal [facility] ANTI-XA (HEPARIN LEVEL)on HEPARIN UNFRACTIONATED (U/ML) IN PPP BY CHROMOGENIC METHOD 0.17 IU/mL Low 0.3-0.7 [facility] Comment on above: Result Comment: Whitmore roxaban and Apixaban will interfere with the anti Xa assay used to monitor UFH and LMWH. Performed By: #### L [id number] #### [facility] ([facility]) [address] [place] [address] HEPARIN UNFRACTIONATED (U/ML) IN PPP BY CHROMOGENIC METHOD 0.21 IU/mL Low 0.3-0.7 [facility] Comment on above: Result Comment: [place] roxaban and Apixaban will interfere with the anti Xa assay used to monitor UFH and LMWH. Performed By: #### L [id number] #### [facility] ([facility]) [address] [place] [address] CBCon 07-22-2023 Erythrocyte distribution width (RBC) [Ratio] 16.5 % High 11.5-15.0 [facility] Comment on above: Performed By: #### L [id number] ####[facility] ([facility])[address] [place] [address] ERYTHROCYTE MEAN CORPUSCULAR HEMOGLOBIN CONCENTRATION (G/DL) BY AUTOMATED 32.0 g/dL Normal 32.0-35.0 [facility] Comment on above: Performed By: #### L [id number] ####[facility] ([facility])[address] [place] [address] Hematocrit (Bld) [Volume fraction] 29.1 % Low 36.0-48.0 [facility] Comment on above: Performed By: #### L [id number] ####[facility] ([facility])[address] [place] [address] Hemoglobin (Bld) [Mass/Vol] 9.3 g/dL Low 12.0-15.0 [facility] Comment on above: Performed By: #### L [id number] ####[facility] ([facility])[address] [place] [address] MCH (RBC) [Entitic mass] 27.0 pg Normal 27.0-33.0 [facility] Comment on above: Performed By: #### L [id number] ####[facility] ([facility])[address] [place] [address] MCV (RBC) [Entitic vol] 84.6 fL Normal 82.0-98.0 [facility] Comment on above: Performed By: #### L [id number] ####[facility] ([facility])[address] [place] [address] PLATELETS (10*3/UL) IN BLOOD AUTOMATED COUNT 202 10*3/uL Normal 150-400 [facility] Comment on above: Performed By: #### L [id number] ####[facility] ([facility])[address] [place] [address] RBC (Bld) [#/Vol] 3.44 10*6/uL Low 3.80-5.00 [facility] Comment on above: Performed By: #### L [id number] ####[facility] ([facility])[address] [place] [address] WBC (Bld) [#/Vol] 6.43 10*3/uL Normal 4.00-10.60 [facility] Comment on above: Performed By: #### L [id number] ####[facility] ([facility] [place] [address] 30on 07-21-2023 30 Problem: Pain - Adul [...] and behaviors that affect risk of falls [place] fall precautions as indicated by assessment Educate [...] for the shift include VSS; safety Normal [facility] 30 The patient is Moderately Stable - [...] or at baseline Outcome: Not Progressing Normal [facility] ANTI-XA (HEPARIN LEVEL)on HEPARIN UNFRACTIONATED (U/ML) IN PPP BY CHROMOGENIC METHOD 0.14 IU/mL Invalid Interpretation Code 0.3-0.7 [facility] Comment on above: Result Comment: Clotilde roxaban and Apixaban will interfere with the anti Xa assay used to monitor UFH and LMWH. Performed By: #### L [id number] #### [facility] ([facility]) [address] [place] [address] HEPARIN UNFRACTIONATED (U/ML) IN PPP BY CHROMOGENIC METHOD <0.10 Invalid Interpretation Code 0.3-0.7 [facility] Comment on above: Result Comment: [place] roxaban and Apixaban will interfere with the anti Xa assay used to monitor UFH and LMWH. Performed By: #### L [id number] ####[facility] ([facility])[address] [place] [address] HEPARIN UNFRACTIONATED (U/ML) IN PPP BY CHROMOGENIC METHOD <0.10 Invalid Interpretation Code 0.3-0.7 [facility] Comment on above: Order Comment: Check anti-Xa level every 6 hours while on heparin infusion, or per protocol. Result Comment: Clotilde roxaban and Apixaban will interfere with the anti Xa assay used to monitor UFH and LMWH. Performed By: #### L [id number] #### [facility] ([facility]) [address] [place] [address] B-TYPE NATRIURETIC PEPTIDEon 07-21-2023 Natriuretic peptide B (Bld) [Mass/Vol] 841 pg/mL High 0-100 [facility] Comment on above: Performed By: #### L [id number] #### [facility] ([facility] [address] [place] [address] COMPREHENSIVE METABOLIC PANE Oscar 07-21-2023 Albumin [Mass/Vol] 2.9 g/dL Low 3.5-5.7 [facility] Comment on above: Performed By: #### L [id number] #### [facility] ([facility]) [address] [place] [address] ALP [Catalytic activity/Vol] 97 U/L Normal 34-104 [facility] Comment on above: Performed By: #### L [id number] #### [facility] ([facility]) [address] [place] [address] ALT [Catalytic activity/Vol] 12 U/L Normal 7-52 [facility] Comment on above: Performed By: #### L [id number] #### [facility] ([facility]) [address] [place] [address] Anion gap [Moles/Vol] 11 mmol/L Normal 7-20 [facility] Comment on above: Performed By: #### L [id number] #### [facility] ([facility]) [address] [place] [address] AST [Catalytic activity/Vol] 21 U/L Normal 13-39 [facility] Comment on above: Performed By: #### L [id number] #### [facility] ([facility]) [address] [place] [address] Bilirubin [Mass/Vol] 0.6 mg/dL Normal 0.3-1.0 [facility] Comment on above: Performed By: #### L [id number] #### [facility] ([facility]) [address] [place] [address] Calcium [Mass/Vol] 9.7 mg/dL Normal 8.6-10.3 [facility] Comment on above: Performed By: #### L [id number] #### [facility] ([facility] [address] [place] [address] Chloride [Moles/Vol] 108 mmol/L High 98-107 [facility] Comment on above: Performed By: #### L [id number] #### [facility] ([facility]) [address] [place] [address] CO2 [Moles/Vol] 23 mmol/L Normal 21-31 [facility] Comment on above: Performed By: #### L [id number] #### [facility] ([facility]) [address] [place] [address] Creatinine [Mass/Vol] 0.68 mg/dL Normal 0.60-1.20 [facility] Comment on above: Performed By: #### L [id number] #### [facility] ([facility]) [address] [place] [address] GLOMERULAR FILTRATION RATE ML/MIN/1.73 SQ M.PREDICTED 91.3 mL/min/1.73m*2 Normal >60.0 [facility] Comment on above: Result Comment: The [facility]???s estimated glomerular filtration rate (eGFR) will no [...] group of individuals. Performed By: #### L [id number] #### [facility] ([facility] [address] [place] [address] Glucose [Mass/Vol] 92 mg/dL Normal 70-100 [facility] Comment on above: Performed By: #### L [id number] #### [facility] ([facility] [address] [place] [address] Potassium [Moles/Vol] 3.8 mmol/L Normal 3.5-5.1 [facility] Comment on above: Performed By: #### L [id number] #### [facility] ([facility]) [address] [place] [address] Protein [Mass/Vol] 5.4 g/dL Low 6.0-8.3 [facility] Comment on above: Performed By: #### L [id number] #### [facility] ([facility]) [address] [place] [address] Sodium [Moles/Vol] 138 mmol/L Normal 136-145 [facility] Comment on above: Performed By: #### L [id number] #### [facility] ([facility]) [address] [place] [address] Urea nitrogen [Mass/Vol] 19 mg/dL Normal 7-25 [facility] Comment on above: Performed By: #### L [id number] #### [facility] ([facility]) [address] [place] [address] UREA NITROGEN/CREATININE (MASS RATIO) IN SER/PLAS 27.9 Normal [facility] Comment on above: Performed By: #### L [id number] #### [facility] ([facility]) [address] [place] [address] HEMOGLOBIN AND HEMATOCRIT, B LOODon 07-21-2023 Hematocrit (Bld) [Volume fraction] 29.9 % Low 36.0-48.0 [facility] Comment on above: Performed By: #### L [id number] #### [facility] ([facility]) [address] [place] [address] Hemoglobin (Bld) [Mass/Vol] 9.5 g/dL Low 12.0-15.0 [facility] Comment on above: Performed By: #### L [id number] #### [facility] ([facility] [address] [place] [address] MAGNESIUMon 07-21-2023 Magnesium [Mass/Vol] 1.5 mg/dL Low 1.9-2.7 [facility] Comment on above: Performed By: #### L [id number] ####[facility] ([facility])[address] [place] [address] T3, FREEon 07-21-2023 TRIIODOTHYRONINE (T3) FREE (PG/ML) IN SER/PLAS 3.7 pg/mL Normal 2.5-3.9 [facility] Comment on above: Performed By: #### L [id number] ####[facility] ([facility])[address] [place] [address] T4, FREEon 07-21-2023 THYROXINE (T4) FREE (NG/DL) IN SER/PLAS 1.14 ng/dL Normal 0.71-1.85 [facility] Comment on above: Performed By: #### L [id number] ####[facility] ([facility])[address] [facility] [place] [address] TROPONIN Ion 07-21-2023 Troponin I.cardiac [Mass/Vol] 0.04 ng/mL Normal 0.00-0.04 [facility] Comment on above: Performed By: #### L [id number] #### [facility] ([facility]) [address] [place] [address] Troponin I.cardiac [Mass/Vol] 0.05 ng/mL High 0.00-0.04 [facility] Comment on above: Performed By: #### L [id number] ####[facility] ([facility])[address] [facility] [place] [address] VITAMIN D 1,25 DIHYDROXYon 1 09-20-2022 VITAMIN D 1,25-DIHYDROXY 32.9 pg/mL Normal 19.9-79.3 [facility] Comment on above: Result Comment: INTE RPRETIVE INFORMATION: Vitamin D, 1,25-Dihydroxy This test is primarily indicated during patient evaluation for hypercalcemia and renal failure. A normal result does not rule out Vitamin D deficiency. The recommended test for diagnosing Vitamin D deficiency is Vitamin D 25-hydroxy. Performed By: [employer] [address] [place] [id number] Assistant Professor Of Spanish: Zeus Ventura MD, PhD [place] Number: [id number] Performed By: #### L [id number] ####[facility] ([facility])[address] [place] [address] VITAMIN D 25 HYDROXYon 07-21 CALCIDIOL (25 [place] VITAMIN D3) (NG/ML) IN SER/PLAS 23.2 ng/mL Low 30.0-80.0 [facility] Comment on above: Result Comment: >80. 0 Toxicity possible Performed By: #### L [id number] ####[facility] ([facility]AKER)[address] [place] [address] 30on 07-20-2023 30 Daily Case Managemen t Update Multidisciplinary rounds have been completed. End of shift note. Per Progress Note/s: ER admit from training assistant office; new onset A-Fib. Heparin gtt. Cardiac [...] Therapy Orders (From admission, onward) Start Ordered 07/19/23 2119 PT eval and treat Until therapy completed Question: Reason for PT? Answer: weakness 07/19/23211707/19/232118 OT eval and treat Until therapy completed Question: Reason for OT? Answer: fall 07/19/232117 Normal [facility] 30 Problem: Pain - Adul t Goal: [...] and behaviors that affect risk of falls [place] fall precautions as indicated by assessment Educate [...] for the shift include VSS; safety Normal [facility] Sariah 07-20-2023 MYKELS Patient: Darek Mejía Choose [...] fellow and attending. Additional Equipment Requests Normal [facility] ANES Patient: Darek Mejía Choose an anesthesia [...] fellow and attending. Additional Equipment Requests Normal [facility] ANTI-XA (HEPARIN LEVEL)on HEPARIN UNFRACTIONATED (U/ML) IN PPP BY CHROMOGENIC METHOD <0.10 Invalid Interpretation Code 0.3-0.7 [facility] Comment on above: Order Comment: Check anti-Xa level every 6 hours while on heparin infusion, or per protocol. Result Comment: Whitmore roxaban and Apixaban will interfere with the anti Xa assay used to monitor UFH and LMWH. Performed By: #### L [id number] #### [facility] (AKER) [address] [place] [address] CBCon 07-20-2023 Erythrocyte distribution width (RBC) [Ratio] 16.4 % High 11.5-15.0 [facility] Comment on above: Performed By: #### L [id number] #### [facility] ([facility]) [address] [place] [address] ERYTHROCYTE MEAN CORPUSCULAR HEMOGLOBIN CONCENTRATION (G/DL) BY AUTOMATED 32.2 g/dL Normal 32.0-35.0 [facility] Comment on above: Performed By: #### L [id number] #### [facility] ([facility]ER) [address] [place] [address] Hematocrit (Bld) [Volume fraction] 32.3 % Low 36.0-48.0 [facility] Comment on above: Performed By: #### L [id number] #### [facility] ([facility]) [address] [place] [address] Hemoglobin (Bld) [Mass/Vol] 10.4 g/dL Low 12.0-15.0 [facility] Comment on above: Performed By: #### L [id number] #### [facility] ([facility]) [address] [place] [address] MCH (RBC) [Entitic mass] 26.8 pg Low 27.0-33.0 [facility] Comment on above: Performed By: #### L [id number] #### [facility] ([facility]) [address] [address] [address] MCV (RBC) [Entitic vol] 83.2 fL Normal 82.0-98.0 [facility] Comment on above: Performed By: #### L [id number] #### [facility] ([facility]) [address] [place] [address] PLATELETS (10*3/UL) IN BLOOD AUTOMATED COUNT 262 10*3/uL Normal 150-400 [facility] Comment on above: Performed By: #### L [id number] #### [facility] ([facility]) [address] [address] [address] RBC (Bld) [#/Vol] 3.88 10*6/uL Normal 3.80-5.00 [facility] Comment on above: Performed By: #### L [id number] #### [facility] ([facility]) [address] [place] [address] WBC (Bld) [#/Vol] 5.76 10*3/uL Normal 4.00-10.60 [facility] Comment on above: Performed By: #### L [id number] #### [facility] ([facility]) [address] [place] [address] CONSULTon 07-20-2023 CONSULT --- Attestation signed by [...] CKMB, CKM (more content not included)... Normal [facility] HPon 07-20-2023 History Of Present Illness Darek [...] further evaluate symptoms Faith Hassan DO, MPH Pattern Maker Programer [facility] Normal [facility] HP H&P reviewed. The patient was examined and there are no changes to the H&P. [facility] ANTI-XA (HEPARIN LEVEL)on HEPARIN UNFRACTIONATED (U/ML) IN PPP BY CHROMOGENIC METHOD <0.10 Invalid Interpretation Code 0.3-0.7 [facility] Comment on above: Order Comment: Check anti-Xa level every 6 hours while on heparin infusion, or per protocol. Result Comment: Clotilde roxaban and Apixaban will interfere with the anti Xa assay used to monitor UFH and LMWH. Performed By: #### L [id number] #### [facility] ([facility] [address] [place] [address] APTTon 07-19-2023 ACTIVATED PARTIAL THROMBOPLASTIN TIME IN PPP BY COAGULATION ASSAY 29.1 Seconds Normal 25.0-35.0 [facility] Comment on above: Order Comment: Basel ine aPTT before initiating heparin infusion. Result Comment: Clin ical significance of the APTT is questionable in the presence of heparin. Performed By: #### L [id number] #### [facility] ([facility]) [address] [place] [address] CBC WITH AUTO DIFFERENTIALon 07-19-2023 Basophils (Bld) [#/Vol] 0.07 10*3/uL Normal 0.00-0.20 [facility] Comment on above: Performed By: #### L [id number] #### [facility] ([facility]) [address] [facility] [place] [address] Basophils/100 WBC (Bld) 1.1 % High 0.0-1.0 [facility] Comment on above: Performed By: #### L [id number] #### [facility] ([facility]) [address] [place] [address] Eosinophils (Bld) [#/Vol] 0.10 10*3/uL Normal 0.00-0.50 [facility] Comment on above: Performed By: #### L [id number] #### [facility] ([facility]) [address] [facility] [place] [address] Eosinophils/100 WBC (Bld) 1.6 % Normal 0.0-6.0 [facility] Comment on above: Performed By: #### L [id number] #### [facility] ([facility]) [address] [place] [address] Erythrocyte distribution width (RBC) [Ratio] 16.4 % High 11.5-15.0 [facility] Comment on above: Performed By: #### L [id number] #### [facility] ([facility] [address] [place] [address] ERYTHROCYTE MEAN CORPUSCULAR HEMOGLOBIN CONCENTRATION (G/DL) BY AUTOMATED 31.8 g/dL Low 32.0-35.0 [facility] Comment on above: Performed By: #### L [id number] #### [facility] ([facility] [address] [place] [address] Hematocrit (Bld) [Volume fraction] 35.5 % Low 36.0-48.0 [facility] Comment on above: Performed By: #### L [id number] #### [facility] ([facility] [address] [place] [address] Hemoglobin (Bld) [Mass/Vol] 11.3 g/dL Low 12.0-15.0 [facility] Comment on above: Performed By: #### L [id number] #### [facility] ([facility]) [address] [place] [address] Immature granulocytes (Bld) [#/Vol] 0.02 10*3/uL Normal 0.00-0.20 [facility] Comment on above: Performed By: #### L [id number] #### [facility] ([facility] [address] [place] [address] Immature granulocytes/100 WBC (Bld) 0.3 % Normal 0.0-1.0 [facility] Comment on above: Performed By: #### L [id number] #### [facility] ([facility]) [address] [place] [address] Lymphocytes (Bld) [#/Vol] 1.76 10*3/uL Normal 1.20-4.00 [facility] Comment on above: Performed By: #### L [id number] #### [facility] ([facility]) [address] [place] [address] Lymphocytes/100 WBC (Bld) 28.5 % Normal 20.0-45.0 [facility] Comment on above: Performed By: #### L [id number] #### [facility] ([facility]) [address] [place] [address] MCH (RBC) [Entitic mass] 26.9 pg Low 27.0-33.0 [facility] Comment on above: Performed By: #### L [id number] #### [facility] ([facility]) [address] [place] [address] MCV (RBC) [Entitic vol] 84.5 fL Normal 82.0-98.0 [facility] Comment on above: Performed By: #### L [id number] #### [facility] ([facility]) [address] [place] [address] Monocytes (Bld) [#/Vol] 0.48 10*3/uL Normal 0.10-1.00 [facility] Comment on above: Performed By: #### L [id number] #### [facility] ([facility]) [address] [place] [address] Monocytes/100 WBC (Bld) 7.8 % Normal 5.0-12.0 [facility] Comment on above: Performed By: #### L [id number] #### [facility] ([facility]) [address] [place] [address] Neutrophils (Bld) [#/Vol] 3.74 10*3/uL Normal 1.60-7.60 [facility] Comment on above: Performed By: #### L [id number] #### [facility] ([facility]) [address] [place] [address] Neutrophils/100 WBC (Bld) 60.7 % Normal 40.0-72.0 [facility] Comment on above: Performed By: #### L [id number] #### [facility] ([facility]) [address] [place] [address] NRBC (PER 100 WBCS) BY AUTOMATED COUNT 0.0 % Normal 0 [facility] Comment on above: Performed By: #### L [id number] #### [facility] ([facility] [address] [place] [address] PLATELETS (10*3/UL) IN BLOOD AUTOMATED COUNT 289 10*3/uL Normal 150-400 [facility] Comment on above: Performed By: #### L [id number] #### [facility] ([facility]) [address] [place] [address] RBC (Bld) [#/Vol] 4.20 10*6/uL Normal 3.80-5.00 [facility] Comment on above: Performed By: #### L [id number] #### [facility] ([facility]) [address] [place] [address] WBC (Bld) [#/Vol] 6.17 10*3/uL Normal 4.00-10.60 [facility] Comment on above: Performed By: #### L [id number] #### [facility] ([facility]) [address] [place] [address] COMPREHENSIVE METABOLIC PANE Oscar 07-19-2023 Albumin [Mass/Vol] 3.7 g/dL Normal 3.5-5.7 [facility] Comment on above: Performed By: #### L [id number] #### [facility] ([facility]) [address] [place] [address] ALP [Catalytic activity/Vol] 132 U/L High 34-104 [facility] Comment on above: Performed By: #### L [id number] #### [facility] ([facility]) [address] [place] [address] ALT [Catalytic activity/Vol] 17 U/L Normal 7-52 [facility] Comment on above: Performed By: #### L [id number] #### [facility] ([facility]) [address] [place] [address] Anion gap [Moles/Vol] 11 mmol/L Normal 7-20 [facility] Comment on above: Performed By: #### L [id number] #### [facility] ([facility]) [address] [place] [address] AST [Catalytic activity/Vol] 23 U/L Normal 13-39 [facility] Comment on above: Performed By: #### L [id number] #### [facility] ([facility]) [address] [place] [address] Bilirubin [Mass/Vol] 0.9 mg/dL Normal 0.3-1.0 [facility] Comment on above: Performed By: #### L [id number] #### [facility] ([facility] [address] [place] [address] Calcium [Mass/Vol] 10.7 mg/dL High 8.6-10.3 [facility] Comment on above: Performed By: #### L [id number] #### [facility] ([facility])) [address] [place] [address] Chloride [Moles/Vol] 104 mmol/L Normal 98-107 [facility] Comment on above: Performed By: #### L [id number] #### [facility] ([facility])) [address] [place] [address] CO2 [Moles/Vol] 28 mmol/L Normal 21-31 [facility] Comment on above: Performed By: #### L [id number] #### [facility] ([facility]) [address] [place] [address] Creatinine [Mass/Vol] 0.66 mg/dL Normal 0.60-1.20 [facility] Comment on above: Performed By: #### L [id number] #### [facility] ([facility]) [address] [place] [address] GLOMERULAR FILTRATION RATE ML/MIN/1.73 SQ M.PREDICTED 92.0 mL/min/1.73m*2 Normal >60.0 [facility] Comment on above: Result Comment: [facility]???s estimated glomerular filtration rate (eGFR) will no [...] group of individuals. Performed By: #### L [id number] #### [facility] ([facility]) [address] [place] [address] Glucose [Mass/Vol] 131 mg/dL High 70-100 [facility] Comment on above: Performed By: #### L [id number] #### [facility] ([facility]) [address] [place] [address] Potassium [Moles/Vol] 3.5 mmol/L Normal 3.5-5.1 [facility] Comment on above: Performed By: #### L [id number] #### [facility] ([facility]) [address] [place] [address] Protein [Mass/Vol] 6.8 g/dL Normal 6.0-8.3 [facility] Comment on above: Performed By: #### L [id number] #### [facility] ([facility]) [address] [place] [address] Sodium [Moles/Vol] 139 mmol/L Normal 136-145 [facility] Comment on above: Performed By: #### L [id number] #### [facility] ([facility]) [address] [place] [address] Urea nitrogen [Mass/Vol] 15 mg/dL Normal 7-25 [facility] Comment on above: Performed By: #### L [id number] #### [facility] ([facility]) [address] [place] [address] UREA NITROGEN/CREATININE (MASS RATIO) IN SER/PLAS 22.7 Normal [facility] Comment on above: Performed By: #### L [id number] #### [facility] ([facility]) [address] [place] [address] [facility] 07-19-2023 [facility] Cardiology Clinic Note Chief [...] with ejection (more content not included)... Normal [facility] MAGNESIUMon 07-19-2023 Magnesium [Mass/Vol] 1.6 mg/dL Low 1.9-2.7 [facility] Comment on above: Performed By: #### L [id number] #### [facility] ([facility]) [address] [place] [address] Office Visiton 07-19-2023 Follow-up visit [id number] Darek Mejía 1950 F Date Provider Department Center 07/19/2023 [id number], OPAL CARD [facility] Family History Problem Relation Age of Onset Coronary artery disease Father Diabetes Father Family Status - Relation Status Age at Father Level of Service:62056 SD OFFICE/OUTPATIENT ESTABLISHED HIGH MDM 40-54 MIN Normal [facility] T4, FREEon 07-19-2023 THYROXINE (T4) FREE (NG/DL) IN SER/PLAS 1.31 ng/dL Normal 0.71-1.85 [facility] Comment on above: Performed By: #### L [id number] #### [facility] ([facility]) [address] [place] [address] TSH3 REFLEX TO FT4on 023 THYROTROPIN (MIU/L) IN SER/PLAS BY DETECTION LIMIT <= 0.05 MIU/L 0.06 mIU/L Low 0.34-5.60 [facility] Comment on above: Performed By: #### L [id number] #### [facility] ([facility]) [address] [place] [address] 36on 07-02-2023 36 Sandy just did patien t's echo. She came over to the office to make us aware that she sounded like she was in afib, and patient didn't recall ever being told she had this. She did ECG. I have assigned it to you in social media specialist. Please advise. Thanks. [facility] Office Visiton 04-23-2023 Follow-up visit [id number] Darek Mejía 1950 F Date Provider Department Center 04/23/2023 OPAL VIVEROS Family History Problem Relation Age of Onset Coronary artery disease Father Diabetes Father Family Status - Relation Status Age at Father Level of Service:97242 SD OFFICE/OUTPATIENT ESTABLISHED MOD MDM 30-39 MIN [facility] Office Visiton 01-31-2023 Follow-up visit [id number] Darek Mejía 1950 F Date Provider Department Center 01/31/2023 HAWA BACA Family History Problem Relation Age of Onset Coronary artery disease Father Diabetes Father Family Status - Relation Status Age at Father Level of Service:97245 SD OFFICE/OUTPATIENT ESTABLISHED MOD MDM 30-39 MIN [facility] 36on 01-11-2023 36 I am putting in a script for aldactone, then she needs BMP in 1 week to assess renal function and potassium level. Have her f/U in 2-4 weeks to review b/p please [facility] Orders Onlyon 01-11-2023 Orders Only [id number] Darek Mejía 1950 F Date Provider Department Center 01/11/2023 HAWA BACA MARIANA Benitez Family History Problem Relation Age of Onset Coronary artery disease Father Diabetes Father Family Status - Relation Status Age at Father [facility] 36on 01-10-2023 35 . [facility] Office Visiton 12-21-2022 Follow-up visit [id number] Darek Mejía 1950 F Date Provider Department Center 12/21/2022 [facility] Family History Problem Relation Age of Onset Coronary artery disease Father Diabetes Father Family Status - Relation Status Age at Father Level of Service:01385 SD OFFICE/OUTPATIENT ESTABLISHED MOD [facility] 30-39 MIN Reason for Visit and Comments: Coronary Artery Disease [187] Congestive Heart Failure [127] Hypertension [844045] Normal [facility] FREE T3on 11-30-2022 FREE T3 2.19 pg/mlL Normal 2.18-3.98 [facility] Comment on above: Performed By: #### T 4, FT3, TSH #### [facility] [address] [address] [address] Rich Pham T4on 11-30-2022 T4 [Mass/Vol] 11.10 ug/dL Normal 4.80-13.90 [facility] Comment on above: Performed By: #### T 4, FT3, TSH #### [facility] [address] [place] [address] Dr. Rich Pham TSHon 11-30-2022 TSH 0.525 uIU/mL Normal 0.358-3.740 [facility] Comment on above: Performed By: #### T 4, FT3, TSH #### [facility] [address] [place] [address] Dr. Rich Pham ANES POSTPROC EVALon 023 ANES POSTPROC EVAL HNO ID: [id number] Author: David Dunn II, DO Service: Anesthesiology Author Type: Anesthesiologist Type: Anesthesia Postprocedure Evaluation Filed: 11/01/2022 12:35 PM Note Text: POST ANESTHESIA EVALUATION NOTE : 1950 Procedure Summary Date: 11/01/22 Room / Location: [address] Anesthesia Start: 1109 Anesthesia Stop: 1130 [...] November 01, 2022 TIME: 12:35 PM CSN: [id number] Normal [facility] ANES PRE-OPon 11-01-2022 ANES PRE-OP HNO ID: [id number] Author: David Dunn II, DO Service: Anesthesiology Author Type: Anesthesiologist Type: Anesthesia Preprocedure Evaluation Filed: 11/01/2022 10:15 AM Note Text: ANESTHESIOLOGY DAY OF SURGERY NOTE : 1950 Procedure Information Date/Time: 11/01/22 1100 Procedures: PHACOEMULSIFICATION CATARACT IMPLANT INTRAOCULAR LENS W/O ENDOSCOPIC CYCLOPHOTOCOAGULATION (Left: Eye) OPHTHALMIC BIOMETRY BY PARTIAL COHERENCE INTERFEROMETRY W/INTRAOCULAR LENS POWER CALCULATION (Left: Eye) Location: [address] Surgeons: Aleksandar Wilson V, MD Estimated body mass index is 21.31 kg/m? as calculated from the following: Height as of 10/30/22: 167.6 cm (5' 6 ). Weight as of 10/30/22: 59.9 kg (132 lb). 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 LINE CLEANER: None Procedure(s) (LRB): PHACOEMULSIFICATION CATARACT IMPLANT INTRAOCULAR [...] corneal incision was created temporally with a [place] blade then a 2.4 mm keratome. The anterior chamber was reformed with Viscoat, after which the anterior capsule was opened centrally. Using the Utrata forceps a continuous curvilinear capsulorrhexis of approximately 5.5 mm round was created. Gentle hydrodissection was accomplished using preservative-free lidocaine on a 27-gauge cannula. Using the Renny phacoemulsification unit with the eBioscience curved tip, the anterior chamber was entered [...] Implant Name Type Inv. Item Serial No. Insurance Producer Lot No. LRB No. Used Action Model No. LENS IOL 0D +21 [employer] - [id number] Intraocular Lens LENS IOL 0D +21 [employer] [id number] [employer] Left 1 Implanted [id number] [...] #1 Aleksandar WILSON MD [facility] FREE T[facility]on 10-30-2022 FREE T3 2.77 pg/mlL Normal 2.18-3.98 [facility] Comment on above: Performed By: #### F T3, TSH, BNP, T4 #### [facility] [address] [address] [address] Rich Pham HISTORY PHYSICALon HISTORY PHYSICAL HNO ID: [id number] Author: Apple Gomez APRN.POLICY ADVISER Service: ? Author Type: Nurse Practitioner Type: [...] ACTIVE PROBLEM LIST Smoking Addiction Atherosclerosis of [place] Coronary Artery of [place] Heart Without Angina Pectoris Mild Left Ventricular Systolic Dysfunction Primary Hypertension Coronary Artery Disease Involving Coronary Bypass Graft of [place] Heart With Angina Pectoris (Hcc) Atelectasis Hypervolemia [...] OF URETHRAL STRICT HEART CATHETERIZATION 2004 at [email or web address]] KIDNEY STONE SURGERY HX MASTECTOMY HX bilat [...] fevers. Neuro: No history of TIA's, stroke, [employer] tumor, impaired sensorium, (more content not included)... Normal [facility] T4on 10-30-2022 T4 [Mass/Vol] 3.40 ug/dL Critically low 4.80-13.90 [facility] Comment on above: Performed By: #### F T3, TSH, BNP, T4 #### [facility] [id number] Rich Pham [facility] 10-30-2022 TSH 2.102 uIU/mL Normal 0.358-3.740 [facility] Comment on above: Performed By: #### F T3, TSH, BNP, T4 #### [facility] [address] [address] [address] Rich Pham [facility] 10-18-2022 CNPN Telephone ([employer]) DAREK MEJÍA ([id number]) 1950 F Date Time Provider Department 10/18/22 PACC ROCKY PACHECO During your visit today, we recorded the following information about you: Haven FELTON Moreno 10/18/2022 1:19 PM Signed Called patient to [...] Intolerance Date Reviewed: 08/15/2022 Reviewed by: Jean-Claude Mlies, OD - Fully Assessed Reason for Visit: [...] Resolved Smoking addiction [F17.200] 06/22/2015 Atherosclerosis of [place] coronary artery of [place]*06/22/2015 Mild left ventricular [...] Status:Closed by HAVEN MORENO on 10/18/22 Normal [facility] FREE T3on 08-30-2022 FREE T3 1.95 pg/mlL Critically low 2.18-3.98 [facility] Comment on above: Performed By: #### F T3, TSH, BNP, T4 #### [facility] [address] [address] [address] Rich Pham T4on 08-30-2022 T4 [Mass/Vol] 8.00 ug/dL Normal 4.80-13.90 [facility] Comment on above: Performed By: #### F T3, TSH, BNP, T4 #### [facility] [address] [address] [address] Rich Pham TSHon 08-30-2022 TSH 3.033 uIU/mL Normal 0.358-3.740 [facility] Comment on above: Performed By: #### F T3, TSH, BNP, T4 #### [facility] [address] [place] [address] Dr. Rich Pham ECHOCARDIO M/2D COMPLETEon 1 10-17-2021 ECHOCARDIO M/2D COMPLETE Patient: DAREK MEJÍA Exam Date: 08/16/2022 : 1950 Gender:F Ordering : HAWA R[place] Admission #: [id number] Family : KAYLEIGH GAY . Order #: [id number] CLICK HERE TO VIEW EXAM ECHOCARDIOGRAM REPORT [...] M.D. on 08/18/2022 at 16:30 Normal [facility] BNPon 07-24-2022 Natriuretic peptide B (Bld) [Mass/Vol] 1535.0 pg/mL Critically high <=900.0 [facility] Comment on above: Performed By: #### F T3, TSH, BNP, T4 #### [facility] [address] [place] [address] Dr. Rich Pham FREE T3on 07-24-2022 FREE T3 1.90 pg/mlL Critically low 2.18-3.98 [facility] Comment on above: Performed By: #### F T3, TSH, BNP, T4 #### [facility] [address] [place] [address] Dr. Rich Pham T4on 07-24-2022 T4 [Mass/Vol] 9.10 ug/dL Normal 4.80-13.90 [facility] Comment on above: Performed By: #### F T3, TSH, BNP, T4 #### [facility] [address] [place] [address] Dr. Rich Pham TSHon 07-24-2022 TSH 1.057 uIU/mL Normal 0.358-3.740 [facility] Comment on above: Performed By: #### F T3, TSH, BNP, T4 #### [facility] [address] [place] [address] Dr. Rich Pham INSULINon 06-20-2022 Insulin 7.0 uIU/mL Normal 2.6-24.9 [facility] Comment on above: Performed By: #### F T3, TSH, BNP, T4 #### [facility] [address] [place] [address] Dr. Rich Pham BNPon 06-19-2022 Natriuretic peptide B (Bld) [Mass/Vol] 962.0 pg/mL Critically high <=900.0 [facility] Comment on above: Performed By: #### F T3, TSH, BNP, T4 #### [facility] [address] [place] [address] Dr. Rich Pham CBC AUTO DIFFon 06-19-2022 BASO # 0.1 103/ul Normal 0.0-0.1 [facility] Comment on above: Performed By: #### F T3, TSH, BNP, T4 #### [facility] [address] [place] [address] Dr. Rich Pham Basophils/100 WBC (Bld) 1.3 % Normal 0.2-2.0 [facility] Comment on above: Performed By: #### F T3, TSH, BNP, T4 #### [facility] [address] [place] [address] Dr. Rich Pham EO # 0.1 103/ul Normal 0.0-0.7 [facility] Comment on above: Performed By: #### F T3, TSH, BNP, T4 #### [facility] [address] [place] [address] Dr. Rich Pham Eosinophils/100 WBC (Bld) 1.9 % Normal 0.9-7.0 [facility] Comment on above: Performed By: #### F T3, TSH, BNP, T4 #### [facility] [address] [place] [address] Dr. Rich Pham Erythrocyte distribution width (RBC) [Ratio] 13.7 % Normal 11.0-15.0 [facility] Comment on above: Performed By: #### F T3, TSH, BNP, T4 #### [facility] [address] [place] [address] Dr. Rich Pham Hematocrit (Bld) [Volume fraction] 39.5 % Normal 36.0-48.0 [facility] Comment on above: Performed By: #### F T3, TSH, BNP, T4 #### [facility] [address] [place] [address] Dr. Rich Pham Hemoglobin (Bld) [Mass/Vol] 12.7 g/dL Normal 12.0-16.0 [facility] Comment on above: Performed By: #### F T3, TSH, BNP, T4 #### [facility] [address] [place] [address] Dr. Rich Pham IG # 0.03 10e3/ul Normal 0.00-0.03 [facility] Comment on above: Performed By: #### F T3, TSH, BNP, T4 #### [facility] [address] [place] [address] Dr. Rich Pham IG % 0.4 % Normal 0.0-0.5 [facility] Comment on above: Performed By: #### F T3, TSH, BNP, T4 #### [facility] [address] [place] [address] Dr. Rich Pham LYMPH # 2.5 103/ul Normal 1.2-3.8 [facility] Comment on above: Performed By: #### F T3, TSH, BNP, T4 #### [facility] [address] [place] [address] Dr. Rich Pham Lymphocytes/100 WBC (Bld) 32.8 % Normal 20.5-60.0 [facility] Comment on above: Performed By: #### F T3, TSH, BNP, T4 #### [facility] [address] [place] [address] Dr. Rich Pham MANUAL DIFF REQ NO Normal [facility] Comment on above: Performed By: #### F T3, TSH, BNP, T4 #### [facility] [address] [place] [address] Dr. Rich Pham MCH (RBC) [Entitic mass] 28.5 pg Normal 26.7-34.0 [facility] Comment on above: Performed By: #### F T3, TSH, BNP, T4 #### [facility] [address] [place] [address] Dr. Rich Pham MCHC (RBC) [Mass/Vol] 32.2 g/dL Normal 29.9-35.2 [facility] Comment on above: Performed By: #### F T3, TSH, BNP, T4 #### [facility] [address] [place] [address] Dr. Rich Pham MCV (RBC) [Entitic vol] 88.6 fL Normal 81.0-99.0 [facility] Comment on above: Performed By: #### F T3, TSH, BNP, T4 #### [facility] [address] [place] [address] Dr. Rich Pham MONO # 0.6 103/ul Normal 0.3-0.8 [facility] Comment on above: Performed By: #### F T3, TSH, BNP, T4 #### [facility] [address] [place] [address] Dr. Rich Pham Monocytes/100 WBC (Bld) 7.6 % Normal 1.7-12.0 [facility] Comment on above: Performed By: #### F T3, TSH, BNP, T4 #### [facility] [address] [address] [address] Rich Pham NEUT # 4.2 103/ul Normal 1.4-6.5 [facility] Comment on above: Performed By: #### F T3, TSH, BNP, T4 #### [facility] [address] [address] [address] Rich Pham Neutrophils/100 WBC (Bld) 56.0 % Normal 43.0-75.0 [facility] Comment on above: Performed By: #### F T3, TSH, BNP, T4 #### [facility] [address] [place] [address] Dr. Rich Pham Platelet mean volume (Bld) [Entitic vol] 10.4 fL Normal 9.5-13.5 [facility] Comment on above: Performed By: #### F T3, TSH, BNP, T4 #### [facility] [address] [place] [address] Dr. Rich Pham PLT 253 103/ul Normal 150-450 [facility] Comment on above: Performed By: #### F T3, TSH, BNP, T4 #### [facility] [address] [place] [address] Dr. Rich Pham RBC 4.46 106/ul Normal 4.20-5.40 [facility] Comment on above: Performed By: #### F T3, TSH, BNP, T4 #### [facility] [address] [place] [address] Dr. Rich Pham WBC 7.5 103/ul Normal 4.0-11.0 [facility] Comment on above: Performed By: #### F T3, TSH, BNP, T4 #### [facility] [address] [place] [address] LUNG CANCER SCREENINGon [...] by: VASU EVANS Date: 2022-06-19 21:05 Normal [facility] FREE THYROXINE INDEX T7on FTI 2.24 Normal 1.30-4.50 [facility] Comment on above: Performed By: #### F T3, TSH, BNP, T4 #### [facility] [address] [address] [address] Rich Pham T3U 33.0 % Normal 30.0-39.0 [facility] Comment on above: Performed By: #### F T3, TSH, BNP, T4 #### [facility] [address] [place], [place] [address] Dr. Rich Pham T4 [Mass/Vol] 6.80 ug/dL Normal 4.80-13.90 [facility] Comment on above: Performed By: #### F T3, TSH, BNP, T4 #### [facility] [address] [place], [place] [address] Dr. Rich Pham GLYCOHEMOGLOBIN A1Con 2021 ADA RECOMMENDATION SEE BELOW Normal [facility] Comment on above: Result Comment: ADA RECOMMENDED LIMIT 4.0 - 6.0 ADA THERAPEUTIC TARGET < 7.0 ACTION SUGGESTED > 7.0 Performed By: #### F T3, TSH, BNP, T4 #### [facility] [address] [address] [address] Rich Pham Glucose [Mass/Vol] 117 mg/dL Normal [facility] Comment on above: Performed By: #### F T3, TSH, BNP, T4 #### [facility] [address] [address] [address] Rich Pham HbA1c (Bld) [Mass fraction] 5.7 % Normal 4.5-6.2 [facility] Comment on above: Performed By: #### F T3, TSH, BNP, T4 #### [facility] [address] [place] [address] Dr. Rich Pham IRONon 06-19-2022 Iron [Mass/Vol] 50.0 ug/dL Normal 50.0-170.0 [facility] Comment on above: Performed By: #### I IAM HARO #### [facility] [address] [place] [address] Dr. Rich Pham LIPID PROFILEon 06-19-2022 CHOL-HDL RATIO NORM SEE BELOW Normal [facility] Comment on above: Result Comment: 3.3 - 4.4 LOW RISK 4.4 - 7.1 AVERAGE RISK 7.1 - 11.0 MODERATE RISK >11.0 HIGH RISK Performed By: #### F T3, TSH, BNP, T4 #### [facility] [address] [address] [address] Rich Pham Cholesterol [Mass/Vol] 142 mg/dL Normal <=200 [facility] Comment on above: Performed By: #### F T3, TSH, BNP, T4 #### [facility] [address] [address] [address] Rich Pham Cholesterol in HDL [Mass/Vol] 52 mg/dL Normal 40-60 [facility] Comment on above: Performed By: #### F T3, TSH, BNP, T4 #### [facility] [address] [address] [address] Rich Pham Cholesterol in LDL [Mass/Vol] 78.8 mg/dL Normal [facility] Comment on above: Performed By: #### F T3, TSH, BNP, T4 #### [facility] [address] [address] [address] Rich Pham Cholesterol.total/Ch olesterol in HDL [Mass ratio] 2.7 {ratio} Normal [facility] Comment on above: Performed By: #### F T3, TSH, BNP, T4 #### [facility] [address] [address] [address] Rich Pham HDL NORMAL > or = 60 mg/dl - LO W CARDIOVASCULAR RISK <40 mg/dl - HIGH CARDIOVASCULAR RISK Normal [facility] Comment on above: Performed By: #### F T3, TSH, BNP, T4 #### [facility] [address] [address] [address] Rich Pham LDL CALC NORMAL SEE BELOW Normal [facility] Comment on above: Result Comment: <100 mg/dl OPTIMAL 100 - 129 mg/dl NEAR OR ABOVE OPTIMAL 130 - 159 mg/dl BORDERLINE HIGH 160 - 189 mg/dl HIGH >190 mg/dl VERY HIGH Performed By: #### F T3, TSH, BNP, T4 #### [facility] [address] [address] [address] Rich Pham Triglyceride [Mass/Vol] 56 mg/dL Normal <=150 [facility] Comment on above: Performed By: #### F T3, TSH, BNP, T4 #### [facility] [address] [address] [address] Rich Pham VLDL CALC 11.2 mg/dL Normal [facility] Comment on above: Performed By: #### F T3, TSH, BNP, T4 #### [facility] [address] [address] [address] Rich Pham PROF 14(COMP METB)on 022 Albumin [Mass/Vol] 3.5 g/dL Normal 3.4-5.0 [facility] Comment on above: Performed By: #### F T3, TSH, BNP, T4 #### [facility] [address] [address] [address] Rich Pham Albumin/Globulin [Mass ratio] 0.9 {ratio} Normal [facility] Comment on above: Performed By: #### F T3, TSH, BNP, T4 #### [facility] [address] [place] [address] Dr. Rich Pham ALP [Catalytic activity/Vol] 95 U/L Normal 46-116 [facility] Comment on above: Performed By: #### F T3, TSH, BNP, T4 #### [facility] [address] [place] [address] Dr. Rich Pham ALT [Catalytic activity/Vol] 22 U/L Normal 14-59 [facility] Comment on above: Performed By: #### F T3, TSH, BNP, T4 #### [facility] [address] [place] [address] Dr. Rich Pham Anion gap [Moles/Vol] 11.3 mmol/L Normal [facility] Comment on above: Performed By: #### F T3, TSH, BNP, T4 #### [facility] [address] [place] [address] Dr. Rich Pham AST [Catalytic activity/Vol] 21 U/L Normal 15-37 [facility] Comment on above: Performed By: #### F T3, TSH, BNP, T4 #### [facility] [address] [place] [address] Dr. Rich Pham Bilirubin [Mass/Vol] 0.4 mg/dL Normal 0.2-1.0 [facility] Comment on above: Performed By: #### F T3, TSH, BNP, T4 #### [facility] [address] [place] [address] Dr. Rich Pham Calcium [Mass/Vol] 10.4 mg/dL Critically high 8.5-10.1 [facility] Comment on above: Performed By: #### F T3, TSH, BNP, T4 #### [facility] [address] [place] [address] Dr. Rich Pham Chloride [Moles/Vol] 105 mmol/L Normal 98-107 [facility] Comment on above: Performed By: #### F T3, TSH, BNP, T4 #### [facility] [address] [place] [address] Dr. Rich Pham CO2 [Moles/Vol] 27.8 mmol/L Normal 21.0-32.0 [facility] Comment on above: Performed By: #### F T3, TSH, BNP, T4 #### [facility] [address] [place] [address] Dr. Rich Pham Creatinine [Mass/Vol] 0.94 mg/dL Normal 0.55-1.02 [facility] Comment on above: Performed By: #### F T3, TSH, BNP, T4 #### [facility] [address] [place] [address] Dr. Rich Pham EGFR-AF SAO TOMEAN >60 Normal >=60 [facility] Comment on above: Performed By: #### F T3, TSH, BNP, T4 #### [facility] [address] [place] [address] Dr. Rich Pham EGFR-NON AF SAO TOMEAN 58 mL/min/1.73m2 Critically low >=60 [facility] Comment on above: Performed By: #### F T3, TSH, BNP, T4 #### [facility] [address] [place] [address] Dr. Rich Pham Globulin (S) [Mass/Vol] 3.9 g/dL Normal [facility] Comment on above: Performed By: #### F T3, TSH, BNP, T4 #### [facility] [address] [place] [address] Dr. Rich Pham Glucose [Mass/Vol] 94 mg/dL Normal 74-106 [facility] Comment on above: Performed By: #### F T3, TSH, BNP, T4 #### [facility] [address] [place] [address] Dr. Rich Pham Potassium [Moles/Vol] 4.1 mmol/L Normal 3.5-5.1 [facility] Comment on above: Performed By: #### F T3, TSH, BNP, T4 #### [facility] [address] [place] [address] Dr. Rich Pham Protein [Mass/Vol] 7.4 g/dL Normal 6.4-8.2 [facility] Comment on above: Performed By: #### F T3, TSH, BNP, T4 #### [facility] [address] [address] [address] Rich Pham Sodium [Moles/Vol] 140 mmol/L Normal 136-145 [facility] Comment on above: Performed By: #### F T3, TSH, BNP, T4 #### [facility] [address] [address] [address] Rich Pham Urea nitrogen [Mass/Vol] 15.0 mg/dL Normal 7.0-18.0 [facility] Comment on above: Performed By: #### F T3, TSH, BNP, T4 #### [facility] [address] [place] [address] Dr. Rich Pham Urea nitrogen/Creatinine [Mass ratio] 16.0 mg/mg Normal [facility] Comment on above: Performed By: #### F T3, TSH, BNP, T4 #### [facility] [address] [place] [address] Dr. Rich Pham TSHon 06-19-2022 TSH 6.083 uIU/mL Critically high 0.358-3.740 [facility] Comment on above: Performed By: #### F T3, TSH, BNP, T4 #### [facility] [address] [place] [address] Dr. Rich Pham VITAMIN D 25 OHon 06-19-2022 VIT D 25-OH 41.3 ng/mL [facility] Comment on above: Performed By: #### F T3, TSH, BNP, T4 #### [facility] [address] [place] [address] Dr. Rich Pham VIT D RANGES SEE BELOW [facility] Comment on above: Result Comment: <20 ng/mL Vit D deficient 20 - <30 ng/mL Vit D insufficient 30 - 100 ng/mL Vit D sufficient >100 ng/mL Potential Toxicity Performed By: #### F T3, TSH, BNP, T4 #### [facility] [address] [place] [address] Dr. Rich Pham PROF CHEM 8 (BAS METB)on Anion gap [Moles/Vol] 11.9 mmol/L Normal [facility] Comment on above: Performed By: #### F T3, TSH, BNP, T4 #### [facility] [address] [address] [address] Rich Pham Calcium [Mass/Vol] 9.9 mg/dL Normal 8.5-10.1 [facility] Comment on above: Performed By: #### F T3, TSH, BNP, T4 #### [facility] [address] [address] [address] Rich Pham Chloride [Moles/Vol] 101 mmol/L Normal 98-107 [facility] Comment on above: Performed By: #### F T3, TSH, BNP, T4 #### [facility] [address] [address] [address] Rich Pham CO2 [Moles/Vol] 30.0 mmol/L Normal 21.0-32.0 [facility] Comment on above: Performed By: #### F T3, TSH, BNP, T4 #### [facility] [address] [address] [address] Rich Pham Creatinine [Mass/Vol] 1.10 mg/dL Critically high 0.55-1.02 [facility] Comment on above: Performed By: #### F T3, TSH, BNP, T4 #### [facility] [address] [address] [address] Rich Pham EGFR-AF SAO TOMEAN 59 mL/min/1.73m2 Critically low >=60 [facility] Comment on above: Performed By: #### F T3, TSH, BNP, T4 #### [facility] [address] [address] [address] Rich Pham EGFR-NON AF SAO TOMEAN 49 mL/min/1.73m2 Critically low >=60 [facility] Comment on above: Performed By: #### F T3, TSH, BNP, T4 #### [facility] [address] [address] [address] Rich Pham Glucose [Mass/Vol] 115 mg/dL Critically high 74-106 [facility] Comment on above: Performed By: #### F T3, TSH, BNP, T4 #### [facility] [address] [address] [address] Rich Pham Potassium [Moles/Vol] 3.9 mmol/L Normal 3.5-5.1 [facility] Comment on above: Performed By: #### F T3, TSH, BNP, T4 #### [facility] [address] [address] [address] Rich Pham Sodium [Moles/Vol] 139 mmol/L Normal 136-145 [facility] Comment on above: Performed By: #### F T3, TSH, BNP, T4 #### [facility] [address] [place] [address] Dr. Rich Pham Urea nitrogen [Mass/Vol] 15.0 mg/dL Normal 7.0-18.0 [facility] Comment on above: Performed By: #### F T3, TSH, BNP, T4 #### [facility] [address] [place] [address] Dr. Rich Pham Urea nitrogen/Creatinine [Mass ratio] 13.6 mg/mg Normal [facility] Comment on above: Performed By: #### F T3, TSH, BNP, T4 #### [facility] [address] [place] [address] Dr. Rich Pham FLUORO FOR SURGICAL PROCEDUR [...] Juvenal Cagle MD 04/10/19 Final result Normal [facility] Surgical Specimenon 04-10-20 Surgical Specimen [facility] [address] [place], [place] [id number] FINAL SURGICAL PATHOLOGY REPORT Patient Name: DAREK MEJÍA Accession No: [id number] Age Sex: 1950 Location: DIS [place] Account No: [id number] Collected: 04/10/2019 [facility] Rec No: [id number] Received: 04/10/2019 Attend Phys: ESTEBAN LÓPEZ Completed: [...] and submitted in one cassette after decalcification. JAZZY/CRHISTY CPT: 61538 X1 65848 X1 MICHELLE PEREZ M.D. 04/15/2019 Electronically signed out by Page 1 of 1 [facility] Comment on above: Performed By: #### S UR #### [facility] [address] [place] [address] Type and Screen Capture 3 sc deisy crowder 04-10-2019 Type and Screen Capture 3 scrn cell PATIENT: MICAELA OSWALD LOC: LCOPS,ORPOOL,NON BILL# : [id number] : 1950 SEX: F ORDERED BY: DAVIN MERCEDES ORDERED : 04/10/2019 06:22 COLLECTED: 04/10/2019 07:21 ORDER : [id number] RECEIVED : 04/10/2019 07:21 --------- TEST NAME RESULT UNITS RANGES ABN FL ST ABORH Capture A POS F Antibody 3 Cell Scrn Captu NEG F -------- Normal [facility] Comment on above: Performed By: #### T S3C #### [facility] [address] [facility] [address] CARDIAC STRESS TESTon 2018 CARDIAC STRESS TEST [facility] [address] [place] [address] CARDIAC STRESS TEST PATIENT NAME: DAREK MEJÍA : 1950 MED REC NO: [id number] ROOM: ACCOUNT NO: [id number] ADMIT DATE: 03/31/2019 PROVIDER: Marli Cox DO [...] ventricular systolic function. MARLI COX DO #14:19:36 WH/[id number]_I Doc#: [id number] CC: Normal [facility] Coding Summary.on 01-30-2019 Coding Summary. 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 However, the narrative phrase printed from the coding software may appear abbreviated, or result in slightly different terminology. Coded By: Linh Devlin CphT Date Saved: 01/30/2019 10:45 am [facility] Coding Summary.on 01-29-2019 Coding Summary. 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 However, the narrative phrase printed from the coding software may appear abbreviated, or result in slightly different terminology. Coded By: Maria Teresa Velasquez Date Saved: 01/29/2019 08:16 am [facility] Main OR Intraoperative Recor don 01-28-2019 Main OR Intraoperative Record IntraOp Document Type FTPM Summary Primary Physician: Cain Rowley MD Finalized Date/Time: 01/28/19 07:58:26 Pt. Name: DAREK MEJÍA/Sex: 1950 Female Med Rec #: [id number] Physician: Amrik WADE, Cain Perla Financial #: [id number] Pt. Type: P Room/Bed: / Admit/Disch: 01/28/19 [...] Role Performed Anesthesiologist of Surgeon - Primary Meter Readers Supervisor - Primary Record Time In 01/28/19 07:53:00 [...] Tamanna Sun RN, Aaron Donohue Role Performed Meter Readers Supervisor - Primary Scrub - Other Clinical Pharmacy Technician Time In 01/28/19 07:53:00 01/28/19 07:53:00 01/28/19 07:53:00 Time Out 01/28/19 08:00:00 01/28/19 08:00:00 01/28/19 08:00:00 Procedure CERVICAL EPIDURAL CERVICAL EPIDURAL CERVICAL EPIDURAL STEROID INJECTION(.) STEROID INJECTION(.) STEROID INJECTION(.) Comments orientee Last Modified By: [place] RN, Nettie Guthrie RN, Nettie Ponce RN 01/28/19 07:58:18 01/28/19 07:58:18 01/28/19 07:58:18 Perioperative [...] and tissue Entry 1 Skin Integrity Intact, [place], Warm, and Skin Abnormality No Dry Outcomes [...] Finalized Date/Time: 01/28/19 07:17:16 Pt. Name: DAREK MEJÍA/Sex: 1950 Female Med Rec #: [id number] Physician: Cain Rowley MD Financial #: [id number] Pt. Type: P Room/Bed: / Admit/Disch: 01/28/19 [...] January 17, 2019 10:38 EDT Encounter info: [id number], [facility], Pain Management, 01/17/2019 - 01/17/2019 * Final [...] tid., # 180 tab(s), Refills(s) 0, Pharmacy: [facility] Documented Medications Documented NIFEdipine 30 mg [...] list: All Problems Smoker / SNOMED CT 948232105 / Confirmed Added secondary to documentation in [...] of motion. Normal strength. Integumentary: Warm, Dry, [place]. Injection site well-healed Neurologic: Alert, Oriented. Psychiatric: [...] Electronically Co-Signed By: Amrik WADE, Cain Perla [facility] Comment on above: Result Comment: [...] tid., # 180 tab(s), Refills(s) 0, Pharmacy: [facility] Documented Medications Documented NIFEdipine 30 mg [...] list: All Problems Smoker / SNOMED CT 605788855 / Confirmed Added secondary to documentation in [...] of motion. Normal strength. Integumentary: Warm, Dry, [place]. Injection site well-healed Neurologic: Alert, Oriented. Psychiatric: [...] with any interval questions or concerns. Normal [facility] Comment on above: Result Comment: ERRO R - WRONG FOLDER Electronically Signed By: Marah Ferrell PA-C\.br\Date and Time Signed: 01/17/19 10:38 EDT\.br\Electronically Co-Signed By: Cain Rowley MD Coding Summary.on 12-31-2018 Coding Summary. CODING DATE: 019 FINAL [facility] STATUS: Home (Routine DC) PAYOR: Medicare [...] Velasquez Date Saved: 12/31/2018 02:30 pm Normal [facility] Progress Note-Physicianon Progress Note-Physician Patient: DAREK MEJÍA [...] day(s), # 21 tab(s), Refills(s) 0, Pharmacy: [facility] gabapentin 300 mg Cap: See Instructions, increase dose as directed to 600 mg po tid., # 180 tab(s), Refills(s) 0, Pharmacy: [facility] Documented Medications Documented NIFEdipine 30 mg [...] list: All Problems Smoker / SNOMED CT 330261717 / Confirmed Added secondary to documentation in Social History. Histories Past Medical History: No active or resolved past medical history items have been selected or recorded., SMOKES TOBACCO Family History: No family history items have been selected or recorded. Procedure history: Mastectomy ([id number]). Hysterectomy (610310927). Cholecystectomy (17870974). CABG x 5 - Coronary artery bypass grafts x 5 ([id number]). Social History Social & Psychosocial Habits Alcohol [...] and perfusion.. Gastrointestinal: Benign, nontender.. Integumentary: Warm, [place]. Neurologic: PER PAIN CLINIC ASSESSMENT. Plan [place] [employer]esthesi[employer] (ASA) physical status classification: Class III. Anesthetic Preoperative Plan Anesthesia: Monitored anesthesia care. Anesthetic plan, risks, benefits, and alternatives discussed with the patient and/or family. Patient verbalized understanding. Informed consent was given. Communication: face to face with Pt educated on the importance of smoking cessation. Normal [facility] Comment on above: Result Comment: Elec tronically Signed By: Stevie iLnares Jr, DO\.fran\Date and Time Signed: 12/31/18 15:15 EDT Main OR Intraoperative Recor don 12-30-2018 Main OR Intraoperative Record IntraOp Document Type FTPM Summary Primary Physician: Cain Rowley MD Finalized Date/Time: 12/30/18 08:22:53 Pt. Name: DAREK MEJÍAO.B./Sex: 1950 Female Med Rec #: [id number] Physician: Cain Rowley MD Financial #: [id number] Pt. Type: P Room/Bed: / Admit/Disch: 12/30/18 07:22:06 - Institution: Case Times FTPM Entry 1 Patient Times In Room 12/30/18 08:15:00 Out Room 12/30/18 08:24:00 Procedure Times Start 12/30/18 08:18:00 Stop 12/30/18 08:22:00 Anesthesia Times Start 12/30/18 08:15:00 Stop 12/30/18 08:24:00 Last Modified By: [place] OLIVAS, Nettie Self 12/30/18 08:22:45 Case Attendance FTPM Entry 1 Entry 2 Entry 3 Case Attendee Vijay Andre DO, Stevie Rowley MD, Cain Guthrie RN, Nettie Self Role Performed Anesthesiologist of Surgeon - Primary Meter Readers Supervisor - Primary Record Time In 12/30/18 08:15:00 [...] Performed Scrub - Primary Scrub - Other Clinical Pharmacy Technician Time In 12/30/18 08:15:00 12/30/18 08:15:00 [...] and tissue Entry 1 Skin Integrity Intact, [place], Warm, and Skin Abnormality No Dry Outcomes [...] Points Checked Yes By Nettie Guthrie RN, Stevie Linares Jr, DO Outcomes Met? Yes Last Modified By: [...] Hair Removal Methods Not Indicated By Tamanna Morneo RN Outcomes Met? Yes Last Modified By: [...] Finalized Date/Time: 12/30/18 07:39:27 Pt. Name: DAREK MEJÍA.O.B./Sex: 1950 Female Med Rec #: [id number] Physician: Cain Rowley MD Financial #: [id number] Pt. Type: P Room/Bed: / Admit/Disch: 12/30/18 [...] Message - General Office From: James Eaton ([facility] Pain Lead Relay Tester) To: Cain Rowley MD; Sent: 12/19/2018 14:37:15 EDT Subject: Rx Patient called and said that she had been prescribed Gabapentin per her last care plan. She said it makes her sleepy and weak. She asked if she would be able to take something different. From: Marah Ferrell PA-C To: [facility] Pain Nursing Inbox; Sent: 12/20/2018 09:18:44 EDT Subject: RE: Rx KAY GPN, we can try lyrica if insurance mitzi cover it. Or just proceed with injection only and see if that helps. Please let me know what she would like to try. From: Jeevan LiuNight Shift SupervisorElysia Fitzgerald ([facility] Pain Nursing Inbox) To: [facility] Nursing Inbox; Sent: 12/20/2018 10:01:06 EDT Subject: pt to call back. called patient, left a message requesting a return telephone. From: Jeevan LiuNight Shift SupervisorElysia Fitzgerald ([facility] Pain Nursing Inbox) To: Marah Ferrell PA-C; Sent: 12/20/2018 13:34:17 EDT Subject: RE: pt to call back. Patient called back and stated that she will d/c the gabapentin and will just wait for injection before trying the lyrica Received a request for prior authorization for the Gabapentin from [facility] From: Elva Moreno RN ([facility] Pain Nursing Inbox) To: [facility] Nursing Inbox; Sent: 12/23/2018 08:44:56 EDT Subject: Rx prior auth request Tried to call [facility] and they do not open until after 9 - will call to see if she picked this up (see notes below) and why we got this request. From: Elva Moreno RN ([facility] Pain Nursing Inbox) To: Elva Moreno RN; Sent: 12/23/2018 10:51:16 EDT Subject: FW: Rx prior auth request Contacted [facility] and they confirm the patient filled this on the 17 of December - not sure why we got the request for Prior authoization, but since we will not be continuing this medication we will disregard the request. for PA. 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 [...] is reviewed. From: Marah Ferrell PA-C To: [facility] Pain Nursing Inbox; Sent: 12/25/2018 11:05:18 EDT Subject: RE: Intractable pain injection scheduled Sunday12/30/18 I can send a medrol dose pack in if she would like to use until the injection From: Elva Moreno RN ([facility] Pain Nursing Inbox) To: [facility] Nursing Inbox; Sent: 12/25/2018 11:11:14 EDT Subject: FW: Intractable pain injection scheduled Sunday12/30/18 Due Date/Time: 12/25/2018 13:00:00 EDT Left voice mail for patient to call the office From: Elva Moreno RN ([facility] Pain Nursing Inbox) To: Marah Ferrell PA-C; Sent: 12/25/2018 11:14:17 EDT Subject: Dose Pack On hold pending signature Order:methylPREDNISolon e (Medrol Dosepack 4 mg Tab) 1 packet(s) Oral As Directed as directed on package labeling Qty: 21 tab(s) Duration: 6 day(s) Refills: 0 Substitutions Allowed Route To Pharmacy - [facility] Patient returned call and states she will give it a try . Approved Order:methylPREDNISolon e (Medrol Dosepack 4 mg Tab) 1 packet(s) Oral As Directed as directed on package labeling Qty: 21 tab(s) Duration: 6 day(s) Refills: 0 Substitutions Allowed Route To Pharmacy - [facility] Signed by Marah Ferrell PA-C 12/25/18 11:27:00 From: Marah Ferrell PA-C To: [facility] Pain Nursing Inbox; Sent: 12/25/2018 11:27:52 EDT Subject: RE: Dose Pack sent From: Jeevan Night Shift Supervisor.Elysia ([facility] Pain Nursing Inbox) To: [facility] Nursing Inbox; Sent: 12/25/2018 12:57:16 EDT Subject: RE: Dose Pack attempted to call patient, no answer and no voicemail From: Tisha Triny MEEHAN ([facility] Nursing Inbox) To: [facility] Nursing Inbox; Sent: 12/25/2018 [...] to 600 mg three times per day. [place] Automated Prescription Reporting System report was reviewed and is consistent with the previous medications prescribed. The patient will follow up two weeks after the injection to assess response and call the clinic with any questions or concerns. The patient agrees with plan of care. Cain Rowley M.D. lkr Dictated: 12/17/2018 #[id number] Typed: 12/19/2018 #[id number] cc: Cain Rowley M.D. Kayleigh Gay M.D. Stas Olvera MD [facility] Comment on above: Result Comment: Elec tronically Signed By: Amrik WADE, Cain Perla\.br\Date and Time Signed: 12/24/18 13:15 EDT Message - General Officeon 0 12-23-2018 Message - General Office From: Sarah Laws To: [facility] Pain Lead Relay Tester; Sent: 12/17/2018 13:40:24 EDT Subject: [place]-Medicare [employer]-CES-12/17/18 From: Thais Nieto ([facility] Pain Lead Relay Tester) To: [facility] Pain Clerical Inbox; Sent: 12/23/2018 13:33:03 EDT Subject: 2nd call Arleen Submitted prior auth online through [employer]. Medicare [employer] approved auth #[id number] good 12/23/18 to 03/23/19. Called patient to schedule C6/7 MAUREEN no anesthesia Dx M54.12, patients number has been changed or disconnected called Ag on patients HIPAA no answer unable to leave a message. From: Thais Nieto ([facility] Pain Clerical Inbox) To: [facility] Pain Clerical Inbox; Sent: 12/23/2018 14:32:36 EDT Subject: RE: 2nd call Arleen Patient called back, scheduled procedure for 12/30/18, scheduled follow up for 01/17/19 at 10:10am. [facility] Coding Summary.on 12-20-2018 Coding Summary. CODING DATE: [facility] STATUS: Home (Routine DC) PAYOR: Medicare ADMIT DX: REASON FOR VISIT DX: M54.2 Cervicalgia FINAL DX: PRINCIPAL: M54.12 Radiculopathy, cervical region SECONDARY: M50.20 Other cervical disc displacement, unspecified cervical region M50.30 Other cervical disc degeneration, unspecified cervical region Z79.82 long-term (current) use of aspirin Z79.1 long-term (current) use of non-steroidal anti-inflammatories (NSAID) PROCEDURES DOCTOR NAME DATE NOTE: The code number assigned matches the documented diagnosis and / or procedure in the patient's chart. However, the narrative phrase printed from the coding software may appear abbreviated, or result in slightly different terminology. Coded By: Linh Devlin CphT Date Saved: 12/20/2018 01:35 pm Normal [facility] Coding Summary.on 12-03-2018 Coding Summary. CODING DATE: [facility] STATUS: Home (Routine DC) PAYOR: Medicare [...] CphT Date Saved: 12/03/2018 01:31 pm Normal [facility] Consultation Noteon 12-04-19 Consultation Note HOSPITAL REGULATIONS [...] bypass surgery in July 2015 at the [facility] and she does smoke. REVIEW OF [...] injection. Stas Olvera MD gls Dictated: 11/26/2018 #[id number] Typed: 12/03/2018 #[id number] cc: Kayleigh Gay M.D. Stas Olvera MD [facility] Comment on above: Result Comment: Elec tronically Signed By: Wade WADE, Stas Napier\.br\Date and Time Signed: 12/03/18 13:16 EDT History and Physicalon 12-11 HIM IP Note OR Environmental Conservation Officer Normal [facility] OPERATIVE REPORTon 8 OPERATIVE REPORT [address] [address] OPERATIVE REPORTPATIENT NAME: DAREK MEJÍA : 8MED REC NO: [id number] ROOM:ACCOUNT NO: [id number] ADMIT DATE: 12/11/2017PROVIDER: Dustin McmahonDATE OF PROCEDURE: [...] infollowup on 12/12/2017.DUSTIN MCMAHOND: 12/11/2017 11:14:16 [id number]#: [id number] Doc#: [id number]: Normal [facility] Op Noteon 12-11-2017 HIM IP Note OR Environmental Conservation Officer Normal [facility] History and Physicalon 10-23 HIM IP Note OR Environmental Conservation Officer Normal [facility] OPERATIVE REPORTon 8 OPERATIVE REPORT [address] [place] [address] OPERATIVE REPORTPATIENT NAME: DAREK MEJÍA : 1950MED REC NO: [id number] ROOM:ACCOUNT NO: [id number] ADMIT DATE: 10/23/2017PROVIDER: Dustin McmahonDATE OF PROCEDURE: [...] 4 days postoperatively.DUSTIN MCMAHOND: 10/23/2017 11:29:16 [id number]#: [id number] Doc#: [id number]: Normal [facility] Op Noteon 10-23-2017 HIM IP Note OR Environmental Conservation Officer [facility] Progress Noteon 10-23-2017 HIM IP Note OR Environmental Conservation Officer [facility] HIM IP Note OR Environmental Conservation Officer [facility] No Panel Information [facility] Encounters Encounter Date Encounter Type Care Provider Facility Start: 12-18-2023 End: 12-18-2023 ambulatory [facility] Start: 10-31-2023 End: 10-31-2023 ambulatory AB [facility] Start: 02-23-2024 Telephone encounter Mary Lou Clinton CMA [facility] Start: 10-23-2023 Orders Only Not In System Ref Prov [facility] Start: 10-11-2023 Orders Only Naomirodríguez Menakins RMA [facility] Comment on above: 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 Start: 07-20-2023 Evaluation and management of inpatient [facility] Start: 07-20-2023 Evaluation and management of inpatient [facility] Start: 07-20-2023 Evaluation and management of inpatient [facility] Start: 07-20-2023 Evaluation and management of inpatient [facility] Start: 07-19-2023 End: 07-22-2023 Evaluation and management of inpatient [facility] Start: 07-19-2023 End: 07-19-2023 ambulatory [facility] Start: 04-23-2023 End: 04-23-2023 ambulatory [facility] Start: 01-31-2023 End: 01-31-2023 ambulatory [facility] Start: 12-21-2022 End: 12-21-2022 ambulatory [facility] Start: 11-30-2022 End: 12-01-[address] KAYLEIGH GAY . 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) Start: 08-15-2022 End: 08-15-2022 ambulatory ALEKSANDAR WILSON V Facility:[facility] Start: 08-15-2022 End: 08-15-2022 Patient encounter [...] End: 04-10-2019 Patient encounter procedure ESTEBAN LÓPEZ [facility] Start: 03-31-2019 End: 04-03-2019 Patient encounter procedure OLGA PARISI [facility] [place] Start: 12-11-2017 End: 12-11-2017 Ambulatory [facility] Start: 10-23-2017 End: 10-23-2017 Ambulatory [facility] Start: 09-28-2017 End: 09-29-2017 Ambulatory DEFAULT PHYSICIAN Facility:[email or web address] Procedures Date Procedure Procedure Detail Performing Clinician Start: 10-10-2023 EGD / COLONOSCOPY Ruthie Oneill MANAGER SCHOOL-[employer]ICY ADVISER Work Phone: Start: 10-10-2023 Level i surg [...] PARISI Start: 04-10-2019 NOTIFY PHYSICIAN (SPECIFY) OLGA ISAK Start: 04-10-2019 PULSE OXIMETRY SPOT CHECK OLGA [...] PROTOCOL DUSTIN PINEDOBS Start: 10-23-2017 BEDREST DUSTIN CHRISTOPHER Start: 10-23-2017 ENCOURAGE DEEP BREAT LEANDRO AND COUGHING DUSTIN MCMAHON Start: 10-23-2017 NOTIFY PHYSICIAN (SPECIFY) DUSTIN MCMAHON Start: 10-23-2017 NURSING COMMUNICATION Clair DE OLIVEIRA SALOME Start: 10-23-2017 VITAL SIGNS DUSTIN CHRISTOPHER Start: 10-23-2017 POCT POTASSIUM DUSTIN MCMAHON Start: 10-23-2017 POTASSIUM (POC) DUSTIN MCMAHON Start: 10-23-2017 INITIATE OXYGEN THER APY PROTOCOL DUSTIN MCMAHON Start: 10-23-2017 NOTIFY PHYSICIAN (SPECIFY) DUSTIN SALOME Start: 10-23-2017 VITAL SIGNS DUSTIN CHRISTOPHER Plan of Treatment Date Care Activity Detail Author Start: 01-08-2025 LIPID SCREEN LIPID SCREEN [facility] Start: 08-15-2024 Adult BMI Screening Adult BMI Screening [facility] Start: 08-15-2024 Tobacco Screening Tobacco Screening [facility] Start: 05-04-2023 COVID-19 Vaccine () COVID-19 Vaccine () [facility] Start: 05-04-2023 Influenza vaccination Influenza Vaccine [facility] Start: 01-27-2023 DIABETES SCREEN DIABETES SCREEN [facility] Start: 09-03-2022 ADVANCE DIRECTIVE DISCUSSION ADVANCE DIRECTIVE DISCUSSION [facility] Start: 09-03-2022 DEPRESSION ASSESSMENT DEPRESSION ASSESSMENT [facility] Start: 05-04-2022 Influenza vaccination INFLUENZA (#1) [facility] Start: 09-13-2021 COVID-19 VACCINE (4 - Booster for Moderna series) COVID-19 VACCINE (4 - Booster for Moderna series) [facility] Start: 09-03-2021 ADVANCE DIRECTIVE DISCUSSION ADVANCE DIRECTIVE DISCUSSION [facility] Start: 09-03-2021 DEPRESSION ASSESSMENT DEPRESSION ASSESSMENT [facility] Start: 01-08-2021 Hepatitis B surface antibody level LDL CHOLESTEROL [facility] Start: 07-26-2016 PNEUMOCOCCAL: 65+ (2 - PCV) PNEUMOCOCCAL: 65+ (2 - PCV) [facility] Start: 2014 BONE DENSITY BONE DENSITY [facility] Start: 2014 Fall Risk Screening Fall Risk Screening [facility] Start: 1999 Administration of varicella zoster vaccine Zoster (Shingles) Vaccine (1 of 2) [facility] Start: 1999 SHINGRIX VACCINE (1 of 2) SHINGRIX VACCINE (1 of 2) [facility] Start: 1994 COLOGUARD (FIT-DNA) COLOGUARD (FIT-DNA) [facility] Start: 1994 Colonoscopy COLONOSCOPY [facility] Start: 1994 COLORECTAL CANCER SCREENING COLORECTAL CANCER SCREENING [facility] Start: [address] COLONOGRAPHY [facility] Start: 1994 FECAL OCCULT BLOOD FECAL OCCULT BLOOD [facility] Start: 1994 SIGMOIDOSCOPY SIGMOIDOSCOPY [facility] Start: 1989 Mammography MAMMOGRAM [facility] Start: 1979 Zoledronic acid therapy ALPHA-1 ANTITRYPSIN DEFICIENCY SCREENING [facility] Start: 1968 DTaP,Tdap and Td Vaccines (1 - Tdap) DTaP,Tdap and Td Vaccines (1 - Tdap) [facility] Start: 1968 Urine microalbumin profile DTAP,TDAP,TD (1 - Tdap) [facility] Start: 1967 Adult BMI Follow Up Plan Adult BMI Follow Up Plan [facility] Start: 1967 ANNUAL PCP TEAM CHRONIC DISEASE VISIT ANNUAL PCP TEAM CHRONIC DISEASE VISIT [facility] Start: 1967 BP CONTROLLED (<130/80) BP CONTROLLED (<130/80) [facility] Start: 1967 HEPATITIS C SCREENING HEPATITIS C SCREENING [facility] Start: 1967 SPIROMETRY SPIROMETRY [facility] Start: 1961 Depression Screening Depression Screening [facility] Start: 1950 Medicare Annual Wellness Visit Medicare Annual Wellness Visit [facility] Start: 1950 Tobacco Counseling Tobacco Counseling [facility] Immunizations Immunization Date Immunization Notes Care Provider Fa miguelty 06-07-2022 unknown vaccine or immune globulin [facility] Work Phone: [facility] 05-25-2021 influenza, injectable,quadrivalent , preservative free, pediatric [facility] Work Phone: [facility] 05-25-2021 influenza virus vaccine, unspecified formulation Naomirodríguez Menakins A [facility] 09-18-2017 pneumococcal conjuga te vaccine, 13 valent [facility] Work Phone: [facility] 06-03-2017 influenza, seasonal, injectable [facility] Work Phone: [facility] 07-07-2016 influenza virus vaccine, unspecified formulation [facility] Work Phone: [facility] 06-14-2016 influenza, injectabl e, quadrivalent, preservative free [facility] Work Phone: [facility] 07-26-2015 influenza, high dose seasonal, preservative-free Aleksandar Castillo MD Work Phone: [facility] 07-26-2015 pneumococcal polysaccharide vaccine, 23 valent Aleksandar Castillo MD Work Phone: [facility] Payers Date Payer Category Payer Medicare [id number] 1960 Medicare [id number] 1960 Medicare [id number] 1950 Unknown [id number] 2.16.8 [id number] 1950 Unknown [id number] 2.16.8 [id number] 1950 Unknown [id number] 2.16.84 [id number] 1950 Unknown [id number] 2.16.84 [id number] 1950 Unknown [id number] 2.16.84 [id number] 1950 Unknown [id number] 2.16.84 [id number] 1950 Unknown [id number] 2.16.84 [id number] 1950 Unknown [id number] 2.16.84 [id number] 1950 Unknown [id number] 2.16.84 [id number] 1950 Unknown [id number] 2.16.84 [id number] Unknown Social History Date Type Detail Facility Start: 03-22-2021 End: 08-15-2023 Tobacco smoking status NHIS Smokes tobacco daily [facility] Start: 09-03-1962 History of tobacco use Cigarette Smo ker [facility] Start: 10-14-2020 End: 03-22-2021 Cigarettes smoked current (pack per day) - Reported 0.5 [facility] Start: 03-22-2021 End: 08-15-2023 Tobacco use and exposure Smokeless tobacco non-user [facility] Start: 08-15-2022 End: 08-15-2023 Alcohol intake Current drinker of alcohol (finding) [facility] Start: 03-22-2021 Alcohol [facility] Start: 1950 Sex Assigned At Not on file C [facility] Start: 10-14-2020 End: 08-15-2023 Tobacco use panel [facility] Childcare Unknown [facility] Start: 04-15-2018 Alcohol Comment SOMETIMES Classting [facility] Medical Equipment Procedure Code Equipment Code Equipment Origin al Text Equipment Identifier Dates Graft Gelweave 3 0mm Straight Gelatin Polyester Woven 30cm Cardiovascular - [id number] Start: 01-10-2020 [place] Cv 4x.5in Thk1.65mm Ptfe - [id number] Start: 07-20-2015 [place] Thk1.65mm P tfe [id number] Cardiovascular Patch Sterile - [id number] Start: 01-10-2020 Lens Iol 0d +21. 5 Cray Uv Abs - [id number] Start: 04-13-2021 Comment on above: Description: -0.47 Patch Thk.5mm Esteban vine Pericardial [id number] Cardiovascular Resilience Durable - [id number] Start: 01-10-2020 Valve Aort 23mm Crp-Ed Thfx - [id number] Start: 01-10-2020 Clinical Notes 01-09-2020 to 12-18-2023 Telephone Encounter - Mary Lou Clinton [facility] - 10/26/2023 9:54 AM ESTTelephone Encounter - Mary Lou Clinton [facility] - 10/26/2023 9:54 AM Elvin Dodd [facility] - 10/30/2022 3:19 PM EST Note Date & Type Note Facility 12-18-2023 Note [facility] Consult Note Reason for visit: Afib HPI: Darek Mejía is a 73 y.o. year old with past medical history of CAD s/p CABG x5 2014, then in 2019 she had an acute aortic dissection leading to BioBent[employer] with bioprosthetic AVR and revision of OM graft 2019, CHF, and Hypertension who presented as a direct admit from our cardiology office due to Afib with RVR. She was evaluated with a cardiac cath which showed a patent CH to LAD while the other grafts were difficult to engage and presumed to be occluded. CTA was recommended for further evaluation of these grafts. While in the hospital she underwent AMITA guided cardioversion to sinus rhythm. Since being in sinus rhythm she has been felt better And has come to discuss further about the option of catheter ablation for A-fib. Patient here per Dr. Carvalho to discuss possible afib ablation. Denies chest pain, palpitations, lightheadedness/syncope, and bleeding on Eliquis. She was unable to finish her stress test due to BP being over 210 systolic. She is rescheduled to finish stress test tomorrow morning. Echocardiogram done on 10/29/2023 reveals EF of 35 to 40% In comparison ejection fraction in June 2023 was 50%. mild to moderate TR was still present and RVSP was unchanged. 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 which was present in the previous study also PMH: Past Medical History: Diagnosis Date Coronary artery disease Heart valve disease Hypertension PSH: Past Surgical History: Procedure Laterality Date CARDIAC CATHETERIZATION CERVICAL SPINE SURGERY CHOLECYSTECTOMY CORONARY ARTERY BYPASS GRAFT ELECTRICAL CARDIOVERSION 07/20/2023 HYSTERECTOMY MASTECTOMY SH: Social Determinants of Health Tobacco Use: High Risk (07/20/2023) Patient History Smoking Tobacco Use: Every Day Smokeless Tobacco Use: Never Passive Exposure: Not on file Alcohol Use: Not on file Financial Resource Strain: Low Risk (07/19/2023) Overall Financial Resource Strain (CARDIA) Difficulty of Paying Living Expenses: Not hard at all Food Insecurity: No Food Insecurity (07/19/2023) Hunger Vital Sign Worried About Running Out of Food in the Last Year: Never true Ran Out of Food in the Last Year: Not on file Transportation Needs: No Transportation Needs (07/19/2023) Transportation Lack of Transportation (Medical): No Lack of Transportation (Non-Medical): Not on file Physical Activity: Not on file Stress: Not on file Social Connections: Not on file Intimate Partner Violence: Not At Risk (07/19/2023) [place] Safety & Environment Fear of Current or Ex-Partner: No Emotionally Abused: Not on file Physically Abused: Not on file Sexually Abused: Not on file Physically or Sexually Abused: Not on file Depression: Not on file Housing Stability: Low Risk (07/19/2023) Housing Stability Vital Sign Unable to Pay for Housing in the Last Year: Not on file Number of Places Lived in the Last Year: Not on file Unstable Housing in the Last Year: No Utilities: Not on file Allergies: Allergies Allergen Reactions Tetanus Vaccines And Toxoid Other and Swelling Other reaction(s): Other: See Comments CRITICAL REACTION Other reaction(s): Other: See Comments CRITICAL REACTION CRITICAL REACTION Allopurinol Other Spironolactone Nausea And Vomiting Tetanus And Diphther. Tox (Pf) Other Isosorbide Dinitrate Nausea And Vomiting Other reaction(s): Nausea And Vomiting Severe head ache Severe head ache Other reaction(s): Nausea And Vomiting Severe head ache Weight: 50.8kg Visit Vitals BP (!) 168/100 (BP Location: Right arm, Patient Position: Sitting) Pulse (!) 49 Ht 1.702 m (5' 7 ) Wt 50.8 kg (112 lb) SpO2 97% BMI 17.54 kg/m??? Smoking Status Every Day BSA 1.55 m??? Meds: Current Outpatient Medications on File Prior to Visit Medication Sig Dispense Refill apixaban (Eliquis) 5 mg tablet Take 1 tablet (5 mg) by mouth in the morning and at bedtime. 60 tablet 11 aspirin 81 mg chewable tablet CHEW 1 TABLET ONCE DAILY DIRECTED. 90 tablet 3 atorvastatin (Lipitor) 80 mg tablet TAKE 1 TABLET BY MOUTH EVERY DAY 90 tablet 3 carvedilol (Coreg) 6.25 mg tablet Take 1 tablet (6.25 mg) by mouth with breakfast and with evening meal. 180 tablet 3 cholecalciferol, vitamin D3, 50 mcg (2,000 unit) capsule Take by mouth in the morning. dapagliflozin propanediol (Farxiga) 10 mg Take 1 tablet (10 mg) by mouth in the morning. 30 tablet 11 furosemide (Lasix) 20 mg tablet Take 1 tablet (20 mg) by mouth in the morning. (Patient taking differently: Take 20 mg by mouth every other day.) 90 tablet 2 levothyroxine (Tirosint) 88 mcg capsule Take by mouth before breakfast. liothyronine (Cytomel) 25 mcg tablet Take 12.5 mcg by mouth in the morning. lisinopril 20 mg tablet Take 1 tablet (20 mg) by mouth in the morning. 90 tablet 3 nitroglycerin (Nitrostat) 0.4 mg SL tablet Sublingu (more content not included)... [facility] 10-31-2023 Note [facility] Card[facility] Clinic Note Chief Complaint: Patient here for follow up labs and echo performed on 10/29/2023. Dr. Gay increased potassium to daily, from every other day. Potassium was a little low when checked in Aug 2023. It was normal 2 days ago. Patient denies chest pain, palpitations, lightheadedness/syncope, and bleeding on Eliquis. Says SOB is better. HPI: Darek Mejía is a 73 y.o. female Feels much better after AMITA and cardioversion; less short of breath, no lower extremity edema. She denies chest pain, she has had no significant palpitations, lightheadedness or dizziness. No syncope. Could not tolerate spironolactone UPDATE 10/31/2023 Cardiology ROS: Review of Systems Cardiovascular: Positive [...] and at bedtime., Disp: 60 tablet, Rfl: 11 aspirin 81 mg chewable tablet, CHEW 1 TABLET ONCE DAILY DIRECTED., Disp: 90 tablet, Rfl: 3 atorvastatin (Lipitor) 80 mg tablet, TAKE 1 TABLET BY MOUTH EVERY DAY, Disp: 90 tablet, Rfl: 3 carvedilol (Coreg) 6.25 mg tablet, Take 1 tablet (6.25 mg) by mouth with breakfast and with evening meal., Disp: 180 tablet, Rfl: 3 cholecalciferol, vitamin D3, 50 mcg (2,000 unit) capsule, Take by mouth in the morning., Disp: , Rfl: dapagliflozin propanediol (Farxiga) 10 mg, Take 1 tablet (10 mg) by mouth in the morning., Disp: 30 tablet, Rfl: 11 furosemide (Lasix) 20 mg tablet, Take 1 tablet (20 mg) by mouth in the morning. (Patient taking differently: Take 20 mg by mouth every other day.), Disp: 90 tablet, Rfl: 2 levothyroxine (Synthroid, [...] the morning. (Patient not taking: Reported on 08/01/2023), Disp: 90 tablet, Rfl: 3 tiZANidine (Zanaflex) 4 mg tablet, Take 4 mg by mouth in the morning, afternoon, and at bedtime., Disp: , Rfl: Trelegy Ellipta 100-62.5-25 mcg blister with device, , Disp: , Rfl: Last Recorded Vitals BP 150/80 (BP Location: Left arm, Patient Position: Sitting) Pulse 55 Ht 1.702 m (5' 7 ) Wt 50.8 kg (112 lb) SpO2 97% BMI 17.54 kg/m??? Physical Examination: GENERAL: alert and oriented x3, well developed, in no acute distress. HEAD: atraumatic, normocephalic. EYES: JUSTA, EOMI. NECK: trachea midline, no JVD present, no carotid bruits present. CARDIAC: S1, S2 present. Irregular. Harsh, II/ ESM heard best at the base. RESPIRATORY: CTAB, no increased effort of breathing, no rales, rhonchi, or wheezing. ABDOMEN: soft, nontender, nondistended. EXTREMITIES: no lower extremity edema, peripheral pulses are 2+ bilaterally. No rash/skin discoloration present. NEURO: strength/sensation equal and symmetric in bilateral upper and lower extremities. PSYCH: appropriate mood, affect, and judgement. INVESTIGATIONS: Echocardiogram 03/15/2021 Normal global left ventricular systolic function, bioprosthetic valve in the aortic position with normal function. Mild mitral and tricuspid regurgitation. Normal right-sided pressures. Lexiscan stress test 03/16/2021 A small area of very mild decreased but reversible defect in the inferior lateral wall involving the mid and distal aspect. This does not a (more content not included)... [facility] 10-26-2023 Miscellaneous Notes ----- Message from Rylan [...] she may follow up p.r.n. with me. ThanksDr. Hernandez documented in this encounter [facility] 10-26-2023 Telephone encounter Note ----- Message from [...] she may follow up p.r.n. with me. [facility]Dr. Hernandez [facility] Note Chief Complaint: Patient here for follow up [facility] [[email or web address] Underwent heart cath and AMITA on 07/20 [...] Severe obstructive karley (more content not included)... [facility] 07-22-2023 Note 07/22/23 1106 Home Oxygen Therapy Evaluation Pulse Oximetry on room air at Rest 87 Pulse Ox on O2 with nasal cannula while at rest 95 (placed patient on 2lpm via nasal cannula) Patient Qualification for home oxygen Qualifies $ Pulse Oximetry Single [facility] 07-22-2023 Note Hospital Medicine Discharge Summary Final Discharge Diagnosis: Newly diagnosed Atrial fibrillation, CHADVASc of 5 s/p AMITA Cardioversion Post cardioversion bradycardia Severe Bioprosthetic Aortic valve stenosis Admission Diagnosis: Atrial fibrillation ([facility]) [I48.91] Hospital course: Darek Mejía is [...] versus TAVR procedure. Dear Dr. Deidra MD, [facility] is advised to follow up with [...] 100-62.5-25 mcg blister with device Generic drug: qquvdnyqbey-lltugsbpe-cdugorfl STOP taking these medications carvedilol 12.5 mg tablet Commonly known as: Coreg Where to Get Your Medications These medications were sent to [facility]/pharmacy #[id number] [place] [address] apixaban 5 mg tablet Darek is allergic [...] rales or rh (more content not included)... [facility] 07-22-2023 Note Attestation signed by Kvng Bustamante [...] 124 QT Interval 462 QTC CALCULATION(BAZETT) 412 R-Lott -64 T Wave Lott -82 Impression Wide QRS rhythm Left anterior fascicular block Left ventricular hypertrophy with QRS widening and repolarization abnormality ( [place] product ) Cannot rule out Septal infarct [...] with QRS widening and repolarization abnormality ( [place] product ) Cannot rule out Septal infarct [...] CABG x5 with revesion in 2020 at [facility] (CH-LAD, rSVG- Diagonal, SVG-OM, SVG-PDA-PLV) Aortic [...] Juancarlos Egan MD PGY-2 Internal Medicine Resident [facility] 07-21-2023 Note Physical Therapy Physical [...] in bed and is agreeable to PT DEISY blevins also agreeable. Pt reports she fractured her [...] artery disease involving coronary bypass graft of [place] heart with angina pectoris ([facility]) Dyslipidemia Encounter for support and coordination of transition of care Hx of CABG Hypervolemia Ischemic heart disease, chronic Macular hole of right eye Mild left ventricular systolic dysfunction Moderate protein-calorie malnutrition ([facility]) Nonrheumatic aortic valve insufficiency Pleural effusion Benign hypertensive cardiomyopathy with heart failure ([facility]) Smoking addiction Bradycardia CHF (congestive heart failure) ([facility]) GERD (gastroesophageal reflux disease) Other emphysema ([facility]) Atrial fibrillation ([facility]) Acute heart failure with preserved ejection fraction ([facility]) Nonrheumatic aortic valve stenosis Past Medical History: [...] Level of Function Prior Function Level of Stanley: Independent with ADLs and functional transfers, Independent [...] to walk i (more content not included)... [facility] 07-21-2023 Note Hospital Medicine Daily Progress Note - 07/21/2023 11:41 AM; Room: [address] [place] [address] Admission: 07/19/2023 8:09 PM; Length of stay: 2 days THE HOSPITALIST TEAM PREFERS TO USE [employer] CHAT FOR COMMUNICATION 7AM-7PM. IF I DO NOT RESPOND WITHIN 15 MINUTES, PLEASE PAGE ME/CALL THROUGH THE JETTING MACHINE OPERATOR. FROM 7PM-7AM, PLEASE PAGE [phone](COVR) Code Status: Full Code Barriers to Discharge: [...] Active Inpatient Problems Principal Problem: Atrial fibrillation ([facility]) Active Problems: Acute heart failure with preserved ejection fraction ([facility]) Nonrheumatic aortic valve stenosis Assessment and Plan Severe Bioprosthetic Aortic valve stenosis Newly diagnosed Atrial fibrillation, CHADVASc = 5 CAD s/p CABG x5 with revesion in 2019 at [facility] (CH-LAD, rSVG- Diagonal, SVG-OM, SVG-PDA-PLV) Aortic stenosis s/p surgical AVR in 2019. Chronic HFpEF, NYHA Class II History of [...] FREET4 1.14 07/21/2023 No results found for: [id number], IRON, TIBC, C3, C4, MIRIAM, CANCA, ASO, PSA, CEA, CA125, CA199, AFP, CA153 Imaging ECG 12 lead Wide QRS rhythm Left anterior fascicular block Left ventricular hypertrophy with QRS widening and repolarization abnormality ( [place] product ) Cannot rule out Septal infarct , age undetermined Abnormal ECG When compared with ECG of 20-JUL-2023 12:58, Wide QRS rhythm has replaced Sinus rhythm Discharge Planning Discharge Planning Has discharge transport been arranged?: Yes OT Discharge Recommendations: Home Signed Ulysses Fuller (more content not included)... [facility] 07-21-2023 Note Attestation signed by Kvng Bustamante [...] 124 QT Interval 462 QTC CALCULATION(BAZETT) 412 R-Lott -64 T Wave Lott -82 Impression Wide QRS rhythm Left anterior fascicular block Left ventricular hypertrophy with QRS widening and repolarization abnormality ( [place] product ) Cannot rule out Septal infarct [...] with QRS widening and repolarization abnormality ( [place] product ) Cannot rule out Septal infarct [...] CABG x5 with revesion in 2019 at [facility] (CH-LAD, rSVG- Diagonal, SVG-OM, SVG-PDA-PLV) Aortic [...] bradycardia with amiodar (more content not included)... [facility] 07-21-2023 Note Called re pt with br adycardia and frequent pvcs Recent labs reviewed will check free T4/T3 since tsh 0.06 consider readjusting doses check troponins hold coreg ekg staff to notify cardiology serum calcium high normal check vit d and repeat cmp [facility] 07-20-2023 Note Procedure Report PROCEDURE: synchronized cardioversion INDICATION: atrial fibrillation, persistent JETTING MACHINE OPERATOR: Gallo Knowles M.D. ANESTHESIA: conscious [...] sinus rhythm. There were no apparent complications. [facility] 07-20-2023 Note Hospital Medicine Daily Progress Note - 07/20/2023 12:37 PM; Room: [facility]- Admission: 07/19/2023 8:09 PM; Length of stay: 1 days THE HOSPITALIST TEAM PREFERS TO USE [employer] CHAT FOR COMMUNICATION 7AM-7PM. IF I DO NOT RESPOND WITHIN 15 MINUTES, PLEASE PAGE ME/CALL THROUGH THE JETTING MACHINE OPERATOR. FROM 7PM-7AM, PLEASE PAGE [phone](COVR) Code Status: Full Code Barriers to Discharge: [...] Active Inpatient Problems Principal Problem: Atrial fibrillation ([facility]) Active Problems: Acute heart failure with preserved ejection fraction ([facility]) Nonrheumatic aortic valve stenosis Assessment and Plan Severe Bioprosthetic Aortic valve stenosis Newly diagnosed Atrial fibrillation, CHADVASc = 5 CAD s/p CABG x5 with revesion in 2020 at [facility] (CH-LAD, rSVG- Diagonal, SVG-OM, SVG-PDA-PLV) Aortic [...] FREET4 1.31 07/19/2023 No results found for: [id number], IRON, TIBC, C3, C4, MIRIAM, CANCA, ASO, PSA, CEA, CA125, CA199, AFP, CA153 Imaging ECG 12 lead Atrial fibrillation Left axis deviation Left ventricular hypertrophy with QRS widening and repolarization abnormality ( [place] product ) Cannot rule out Anteroseptal infarct [...] in the epigastric (more content not included)... [facility] 07-20-2023 Note Clinical Nutrition A ssessment Name: [...] based on: actual body weight Calorie needs: 9001-1685 kcals/day based on Equation: 25-30 kcal/kg Protein [...] with questions and contact the dietitian via [employer] chat 8A-4P Sunday-Sunday. Or call the dietitian's office at extension [phone]. For s/holidays, the dietitian's can be reached by paging [phone] from 9A-3P. Unable to be reached via [employer] on Sunday & s.) [facility] 07-20-2023 Note Occupational Therapy Occupational Therapy Evaluation [...] artery disease involving coronary bypass graft of [place] heart with angina pectoris (CMS/HCC) Dyslipidemia Encounter [...] reflux disease) Other emphysema (CMS/HCC) Atrial fibrillation ([facility]) Acute heart failure with preserved ejection fraction ([facility]) Nonrheumatic aortic valve stenosis Past Medical History: [...] Level of Function Prior Function Level of Stanley: Independent with ADLs and functional transfers, Independent [...] Eating meals?: None (Independent) Total Score OT [facility]: 21 Assessment/Plan OT Assessment OT Impairments: Decreased ADL status, Decreased endurance, Decreased functional mobility OT Assessment/MRACO A Summary: (needs skilled OT for generalized weakness and fatigue) Prognosis: Good Evaluation/Treatment Tolerance: Patient limited by fatigue Medical Staff Made Aware: Yes OT Education/Comments: (ws/ec/pacing , ae/dme that may improve endurance for adls at home , all with good verbal return) Plan Level of assist: 1 assist Treatment Interventions: ADL retraining, Fu (more content not included)... [facility] 07-20-2023 Note Hospital Medicine History and Physical 07/19/2023 10:58 PM THE HOSPITALIST TEAM PREFERS TO USE [employer] CHAT FOR COMMUNICATION 7AM-7PM. IF I DO NOT RESPOND WITHIN 15 MINUTES, PLEASE PAGE ME/CALL THROUGH THE JETTING MACHINE OPERATOR. FROM 7PM-7AM, PLEASE PAGE [phone](COVR) Chief Complaint No chief complaint on file. History of Present Illness Darek Mejía is an 73 y.o. female admitted from home per recommendation by her training assistant who saw her in the office and [...] Problem List Diagnosis Date Noted Atrial fibrillation ([facility]) 07/19/2023 GERD (gastroesophageal reflux disease) 10/30/2022 Other emphysema ([facility]) 10/30/2022 Combined forms of age-related cataract of both eyes 04/13/2021 Pleural effusion 01/19/2020 Encounter for support and coordination of transition of care 01/15/2020 Moderate protein-calorie malnutrition ([facility]) 01/11/2020 Hx of CABG 01/10/2020 Nonrheumatic aortic valve insufficiency 01/09/2020 Dyslipidemia 03/25/2019 Macular hole of right eye 10/23/2017 Ischemic heart disease, chronic 08/24/2015 Chronic systolic heart failure ([facility]) 07/24/2015 CHF (congestive heart failure) ([facility]) 07/24/2015 Hypervolemia 07/23/2015 Atelectasis 07/21/2015 Coronary artery disease involving coronary bypass graft of [place] heart with angina pectoris ([facility]) 07/19/2015 Mild left ventricular systolic dysfunction 06/22/2015 Benign hypertensive cardiomyopathy with heart failure ([facility]) 06/22/2015 Smoking addiction 06/22/2015 Bradycardia 08/11/2022 [...] ordered as approp (more content not included)... [facility] 07-19-2023 Note [facility] Cardiology Clinic Note Chief Complaint: Patient [...] motion with ejection (more content not included)... [facility] 04-23-2023 Note [facility] Card[facility] Clinic Note Chief Complaint: [...] of ventricular bigeminy. (more content not included)... [facility] 01-31-2023 Note Continue GDMT- ASA, lipitor, coreg continue risk factor modifications- heart healthy diet, regular exercise as tolerated and continue all medications. [facility] 01-31-2023 Note [facility] II- currently e uvolemic without excaerbation Continue GDMT- ASA, lipitor, coreg, lisinopril and aldatone Diuretic therapy- lasix every other day Monitor daily weights, I&O, fluid restriction 1.5-2L/day, renal function and electrolytes- [facility] 01-31-2023 Note Stable- continue all meds [facility] 01-31-2023 Note Review of B/P log an d her HTN is much better controlled with addition of aldactone. K+ level remains normal and renal function is stable for her. Denied lightheadedness/dizziness Continue aldactone, lisinopril, coreg and lasix QOD [facility] 01-31-2023 Note [facility] CARDIOLOGY PROGR ESS NOTE [...] all meds Chronic systolic heart failure (CMS/HCC) [facility] II- currently euvolemic without excaerbation Continue GDMT- ASA, lipitor, coreg, lisinopril and aldatone Diuretic therapy- lasix every other day Monitor daily weights, I&O, fluid restriction 1.5-2L/day, renal function and electrolytes- Coronary artery disease involving coronary bypass graft of [place] heart with angina pectoris (CMS/HCC) Continue GDMT- ASA, lipitor, coreg continue risk factor modifications- heart healthy diet, regular exercise as tolerated and continue all medications. RTC 3 months with repeat BMP in 1 week [facility] 01-31-2023 Note Patient here for 2 m [...] All other systems reviewed and are negative. [facility] 01-11-2023 Note Review of b/p log sh ows HTN remains uncontrolled at home- will add aldactone to regime and repeat BMP in 1 week to assess renal function and potassium level Have pt RTC in 2-4 weeks- message sent to A Saulo SALGADO. [facility] 01-11-2023 Note Benign hypertensive cardiomyopathy with heart [...] Release to Patient Answer: Immediately Hawa Rush [employer] Division of Cardiology, [facility]- [phone] Pager- [phone] Email- [email or web address] 12-21-2022 Note [facility] II- currently e uvolemic without exacerbation Continue GDMT- ASA, lipitor, coreg, lisinopril Diuretic therapy- lasix qod Monitor daily weights, I&O, fluid restriction 1.5-2L/day, renal function and electrolytes- [facility] 12-21-2022 Note Coronary artery dise ase is stable Continue GDMT continue risk factor modifications- heart healthy diet, regular exercise as tolerated and continue all medications. [facility] 12-21-2022 Note stable: [facility] 12-21-2022 Note Currently stable wit hout any concerning symptoms [facility] 12-21-2022 Note Reviewed echocardiog ashwini with pt from 08/2022 No concerning symptoms currently Will repeat echo at 1 year- or Aug 2023 [facility] 12-21-2022 Note Hypertension is elev ated in office each time she is here most likely r/t white coat syndrome. States b/p typically at home is 130's/70 with occasional 140/80 Continue all meds [facility] 12-21-2022 Note Continue lipitor 80 mg [facility] 12-21-2022 Note [facility] CARDIOLOGY PROGR ESS NOTE [...] at 1 yea (more content not included)... [facility] 12-21-2022 Note Patient here for 4 m [...] All other systems reviewed and are negative. [facility] 10-30-2022 Note HNO ID: [id number] Author: XIOMARA Farmer Service: ? Author Type: Residential Fee Appraiser Type: Progress Notes Filed: 10/30/2022 3:28 PM Note Text: CONFIRM AIM PLANO LEFT EYE. XIOMARA Farmer [facility] 10-30-2022 History of Present illness Narrative CONFIRM AIM PLANO LEFT EYE. XIOMARA Farmer documented in this encounter [facility] 10-18-2022 Miscellaneous Notes Called and spoke [...] 2022 1:18 PM documented in this encounter [facility] 08-15-2022 Note HNO ID: [id number] Author: Aleksandar Wilson V, MD Service: ? [...] and surgery - Comanage with Dr Mccollum; [facility] POD #1 Cataract Presurgical Documentation Cataract: [...] patient was offered a surgery/procedure at a [facility] facility. The surgeon/proceduralist and patient have [...] patient was offered a surgery/procedure at a [facility] facility. The surgeon/proceduralist and patient have [...] form. -F/U [address] Mccollum ([facility]) The documentation recorded by the scribe accurately reflects the service I personally performed and the decisions made by me. I have confirmed and edited as necessary the relevant ophthalmic history, ROS, and the exam findings as obtained by others. I have seen and examined Darek Mejía. I also have reviewed and agree with the ass (more content not included)... [facility] 08-15-2022 Note HNO ID: [id number] Author: Jean-Claude Miles OD Service: ? Author Type: MANUFACTURING JOB TITLES Type: Progress Notes Filed: 08/15/2022 3:51 PM [...] Miles, OD August 15, 2022 3:07 PM [facility] 08-15-2022 History of Present illness Narrative [...] and surgery - Comanage with Dr Mccollum; [facility] POD #1 Cataract Presurgical Documentation Cataract: [...] patient was offered a surgery/procedure at a [facility]. The surgeon/proceduralist and patient have discussed in [...] patient was offered a surgery/procedure at a [facility] facility. The surgeon/proceduralist and patient have [...] form. 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 Bernal okay to proceed [...] encounter (statuses as of 10/31/2022) [facility] note* Diagnosis PCO (posterior capsular opacification), right- Primary After-cataract, unspecified Pseudophakia, right eye Lens replaced by other means Combined forms of age-related cataract of left eye Other and combined forms of senile cataract Full thickness macular hole, right documented in this encounter [facility] note* Diagnosis Combined forms of age-related cataract of left eye- Primary Other and combined forms of senile cataract documented in this encounter [facility] note* Diagnosis Combined forms of age-related cataract of left eye- Primary Other and combined forms of senile cataract Combined forms of age-related cataract of left eye Other and combined forms of senile cataract documented in this encounter [facility] note* Diagnosis 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 Family history of colon cancer Family history of malignant neoplasm of gastrointestinal tract [facility] filedocumented in this [facility] filed[facility] this encounter [facility] Summary Purpose Family History No Family History Records FoundNo Family History Records FoundNo Family History Records FoundNo Family History Records FoundNo Family History Records FoundNo Family History Records FoundNo Family History Records Found Advance Directives No Advanced Directives Records FoundDocuments on File Type Date Recorded Patient Insurance Consultant Expl anation Advance Directive(s) 01/16/2020 9:56 PM [...] list: All Problems Smoker / SNOMED CT [id number] / Confirmed Added secondary to documentation in [...] CREATED AUTHOR AUTHOR'S ORGANIZ ATION 02/25/2018 [facility] DATE CREATED AUTHOR AUTHOR'S ORGANIZ ATION 04/19/2019 [facility] DATE CREATED AUTHOR AUTHOR'S ORGANIZ ATION 08/22/2019 [facility] DATE CREATED AUTHOR AUTHOR'S ORGANIZ ATION 11/02/2022 [facility] DATE CREATED AUTHOR AUTHOR'S ORGANIZ ATION 12/09/2022 [facility] DATE CREATED AUTHOR AUTHOR'S ORGANIZ ATION 12/22/[address] [facility] Source Comments (unrecognize d section and content) In the event this informatio n is protected by the Federal Confidentiality of Alcohol and Drug Abuse Patient Records regulations: The Federal rules restrict any use of the information to criminally investigate or prosecute any alcohol or drug abuse patient.[facility] the event this information is protected by the Federal Confidentiality of Alcohol and Drug Abuse Patient Records regulations: The Federal rules restrict any use of the information to criminally investigate or prosecute any alcohol or drug abuse patient.[facility] the event this information is protected by the Federal Confidentiality of Alcohol and Drug Abuse Patient Records regulations: The Federal rules restrict any use of the information to criminally investigate or prosecute any alcohol or drug abuse patient.[facility] the event this information is protected by the Federal Confidentiality of Alcohol and Drug Abuse Patient Records regulations: The Federal rules restrict any use of the information to criminally investigate or prosecute any alcohol or drug abuse patient.[facility] Reason for Visit (unrecogniz ed section and content) Reason Comments Cataract Evaluation Left eye Posterior Capsule Opacification Evaluati on Right eye Specialty Diagnoses / Procedures Referred By Arben rosario Referred To Contact OPHTHALMOLOGY Diagnoses Combined forms of age-related cataract, bilateral Laser Yag Procedures POST-CATARACT LASER SURGERY Darian Coy OD [address] [place] [address] [facility] Hermelinda Myers [facility] [place] [address] Referral ID Status Reason Start Date Expiration Date Visits Re quested Visits Authorized [id number] Closed 03/21/2022 09/27/2022 1 1 Reason Comments Appointment Reason Comments Pre-Op Exam Care Teams (unrecognized sec tion and content) 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 Relationship Specialty Start Date End Date Kayleigh Gay MD PCP - General Family Medicine 06/17/15 Kayleigh Gay MD Family Medicine 06/17/15 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 Relationship Specialty Start Date End Date Kayleigh Gay MD PCP - General Family Medicine 06/17/15 Kayleigh Gay MD Family Medicine 06/17/15 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 Relationship Specialty Start Date End Date Kayleigh Gay MD PCP - General Family Medicine 06/17/15 Kayleigh Gay MD Family Medicine 06/17/15 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 Relationship Specialty Start Date End Date Kayleigh Gay MD PCP - General Family Medicine 06/17/15 Kayleigh Gay MD Family Medicine 06/17/15 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 Relationship Specialty [place] [address] [place] [id number] PCP - General 04/15/18 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 Relationship Specialty [place] [address] [place] [id number] PCP - General 04/15/18 FOR RECORDS PERTAINING [...] BE BASED ON THE PRIMARY CLINICAL RECORDS. [facility] provides no warranty or guarantee of the accuracy or completeness of information in this document.
== END 2023-12-31 10:24 | disposition home or self-care (01) ==
LOC: CT 10:23
PROVIDERS: PCP Family Medicine; Visit Provider Internal Medicine
DX: R91.8 Other nonspecific abnormal finding of lung field (principal); S22.31XD Fracture of one rib, right side, subsequent encounter for fracture with routine healing
CPT/HCPCS: 71250

== ENCOUNTER 2024-01-30 10:03 | Outpatient (OUT) | payer MEDICARE, SELFPAY ==
--- OUTSIDE RECORDS SUMMARY | 2024-01-30 10:20 | XMS_ITS | CCD ---
Author Organization [facility] Care Team Providers Care Liquid Loader Name Role Phone DUSTIN MCMAHON K Unavailable Unavailable SALOME, DUSTIN K Unavailable Unavailable KAYLEIGH GAY M Unavailable Unavailable SALOME, DUSTIN K Unavailable Unavailable SALOME, DUSTIN K Unavailable Unavailable KAYLEIGH GAY M Unavailable Unavailable PHYSICIAN, DEFAULT Unavailable Unavailable PHYSICIAN, DEFAULT Unavailable Unavailable OLGA PARISI I Referring Unavailable KAYLEIGH GAY Primary Care Unavailable ESTEBAN LÓPEZ HLia Admitting Unavailable ESTEBAN LÓPEZ HLia Attending Unavailable KAYLEIGH GAY M Primary Care Unavailable Kayleigh Gay MD Primary Care Provider [phone] Kayleigh Gay MD Unavailable KATIE V, [...] DEIDRA ., DR VICTOR Primary Care Unavailable VISHALY ., DR VICTOR Admitting Unavailable HOY ., DR VICTOR Primary Care Unavailable HOY ., DR VICTOR Admitting Unavailable HOY ., DR VICTOR Attending Unavailable HOY ., DR VICTOR Consulting Unavailable DEIDRA ., DR VICTOR Primary Care Unavailable HOOmar [...] Unavailable Vishaly Kayleigh WADE Primary Care Provider [phone] SANAULLAH, MAHAMED Referring Unavailable SANAULLAH, MAHAMED Referring [...] Drug Allergy 5 Intolerance, Other (See Comments) [facility] (9 sources) diphtheria toxoid vaccine, inactivated / tetanus toxoid vaccine, inactivated; Translations: [TETANUS AND DIPHTHER. TOX (PF)] Drug Allergy 8 Intolerance [facility] (5 sources) Isosorbide; Translations: [ISOSORBIDE MONONITRATE] Drug Allergy 6 Intolerance [facility] (8 sources) tetanus toxoid vaccine, inactivated; Translations: [TETANUS TOXOID ADSORBED] Drug Allergy 5 Other: See Comments [facility] (4 sources) Isosorbide Dinitrate; Translations: [ISOSORBIDE DINITRATE] Drug Allergy 6 Nausea And Vomiting [facility] (4 sources) Spironolactone; Translations: [SPIRONOLACTONE ] Drug Allergy 3 Nausea And Vomiting [facility] (1 source) TETANUS VACCINES AND TOXOID; Translations: [TETANUS VACCINES AND TOXOID] Propensity to adverse reactions to drug (disorder) 5 [facility] Repository Medications Current Medications Medication Drug [...] Active Start: 05-09-[address] [facility] once daily Cholecalciferol, Vitamin D3, 50 [...] Start: 07-21-2022 take 1 puff(s) by [facility] once daily TRELEGY ELLIPTA 100-62.5-25 mcg inhalation [...] on above: TAKE 1 TABLET BY RUEL ONCE DAILY FOR 7 DAYS. hydroCHLOROthiazide 25 [...] Coronary atherosclerosis; Translations: [Atherosclerotic heart disease of [place] coronary artery without angina pectoris] Onset: 06-22-2015 [...] you Patient informed and verbalized understanding. Normal [facility] Office Visiton 12-18-2023 Follow-up visit [id number] Darek Mejía 1950 F Date Provider Department Center 12/18/2023 DAVID JULIEN Family History Problem Relation Age of Onset Coronary artery disease Father Diabetes Father Family Status - Relation Status Age at Father Level of Service:32766 [place] OFFICE/OUTPATIENT NEW MODERATE MDM 45 MINUTES Normal [facility] Office Visiton 10-31-2023 Follow-up visit [id number] Darek Mejía 1950 F Date Provider Department Center 10/31/2023 OPAL VIVEROS Family History Problem Relation Age of Onset Coronary artery disease Father Diabetes Father Family Status - Relation Status Age at Father Level of Service:50535 [place] OFFICE/OUTPATIENT ESTABLISHED HIGH MDM 40 MIN [facility] EGD / Colonoscopyon 10-10-19 [facility] Surgical PathologyOrdered By : Naomi Bautista on 10-10-2023 [facility] Orders Onlyon 09-05-2023 Orders Only [id number] Darek Mejía N 1950 F Date Provider Department [place] 09/05/2023 NARAYAN RODRIGUEZ Family History Problem Relation Age of Onset Coronary artery disease Father Diabetes Father Family Status - Relation Status Age at Father [facility] 36on 08-17-2023 36 6 weeks s/p cardioversion would be 08/31/2023. Judy at Dr. Zhang' office made aware via fax. [facility] [address] Willian henderson' office called requesting Darek Coombs 3 days prior to EGD/colonscopy scheduled on 09/05/2023. Please advise. [facility] Office Visiton 08-01-2023 Follow-up visit [id number] Darek Mejía N 1950 Date Provider Department [place] 08/01/2023 OPAL VIVEROS Family History Problem Relation Age of Onset Coronary artery disease Father Diabetes Father Family Status - Relation Status Age at Father Level of Service:01764 [place] OFFICE/OUTPATIENT ESTABLISHED HIGH MDM 40-54 MIN [facility] 30on 07-22-2023 30 Problem: Pain - [...] dysrhythmias or at baseline Outcome: Progressing Normal [facility] 30 The patient is Moderately Stable [...] dysrhythmias or at baseline Outcome: Progressing Normal [facility] ANTI-XA (HEPARIN LEVEL)on HEPARIN UNFRACTIONATED (U/ML) IN PPP BY CHROMOGENIC METHOD 0.17 IU/mL Low 0.3-0.7 [facility] Comment on above: Result Comment: Clotilde roxaban and Apixaban will interfere with the anti Xa assay used to monitor UFH and LMWH. Performed By: #### L [id number] #### [facility] ([facility] [address] [place] [address] HEPARIN UNFRACTIONATED (U/ML) IN PPP BY CHROMOGENIC METHOD 0.21 IU/mL Low 0.3-0.7 [facility] Comment on above: Result Comment: [place] roxaban and Apixaban will interfere with the anti Xa assay used to monitor UFH and LMWH. Performed By: #### L [id number] #### [facility] ([facility] [address] [place] [address] CBCon 07-22-2023 Erythrocyte distribution width (RBC) [Ratio] 16.5 % High 11.5-15.0 [facility] Comment on above: Performed By: #### L [id number] ####[facility] ([facility] [place] [address] ERYTHROCYTE MEAN CORPUSCULAR HEMOGLOBIN CONCENTRATION (G/DL) BY AUTOMATED 32.0 g/dL Normal 32.0-35.0 [facility] Comment on above: Performed By: #### L [id number] ####[facility] (BEAKER)[address] [place] [address] Hematocrit (Bld) [Volume fraction] 29.1 % Low 36.0-48.0 [facility] Comment on above: Performed By: #### L [id number] ####[facility] [place] [address] Hemoglobin (Bld) [Mass/Vol] 9.3 g/dL Low 12.0-15.0 [facility] Comment on above: Performed By: #### L [id number] ####[facility] ([facility] [place] [address] MCH (RBC) [Entitic mass] 27.0 pg Normal 27.0-33.0 [facility] Comment on above: Performed By: #### L [id number] ####[facility] ([facility] [place] [address] MCV (RBC) [Entitic vol] 84.6 fL Normal 82.0-98.0 [facility] Comment on above: Performed By: #### L [id number] ####[facility] ([facility] [place] [address] PLATELETS (10*3/UL) IN BLOOD AUTOMATED COUNT 202 10*3/uL Normal 150-400 [facility] Comment on above: Performed By: #### L [id number] ####[facility] ([facility] [place] [address] RBC (Bld) [#/Vol] 3.44 10*6/uL Low 3.80-5.00 [facility] Comment on above: Performed By: #### L [id number] ####[facility] (BEAKER)[address] [place] [address] WBC (Bld) [#/Vol] 6.43 10*3/uL Normal 4.00-10.60 [facility] Comment on above: Performed By: #### L [id number] ####[facility] ([facility] [place] [address] 30on 07-21-2023 30 Problem: Pain - Adul [...] and behaviors that affect risk of falls [employer] fall precautions as indicated by assessment Educate [...] for the shift include VSS; safety Normal [facility] 30 The patient is Moderately Stable [...] or at baseline Outcome: Not Progressing Normal [facility] ANTI-XA (HEPARIN LEVEL)on HEPARIN UNFRACTIONATED (U/ML) IN PPP BY CHROMOGENIC METHOD 0.14 IU/mL Invalid Interpretation Code 0.3-0.7 [facility] Comment on above: Result Comment: Clotilde roxaban and Apixaban will interfere with the anti Xa assay used to monitor UFH and LMWH. Performed By: #### L [id number] #### [facility] ([facility] [address] [place] [address] HEPARIN UNFRACTIONATED (U/ML) IN PPP BY CHROMOGENIC METHOD <0.10 Invalid Interpretation Code 0.3-0.7 [facility] Comment on above: Result Comment: [place] roxaban and Apixaban will interfere with the anti Xa assay used to monitor UFH and LMWH. Performed By: #### L [id number] ####[facility] ([employer])[address] [place] [address] HEPARIN UNFRACTIONATED (U/ML) IN PPP BY CHROMOGENIC METHOD <0.10 Invalid Interpretation Code 0.3-0.7 [facility] Comment on above: Order Comment: Check anti-Xa level every 6 hours while on heparin infusion, or per protocol. Result Comment: [place] roxaban and Apixaban will interfere with the anti Xa assay used to monitor UFH and LMWH. Performed By: #### L [id number] #### [facility] ([facility] [address] [place] [address] B-TYPE NATRIURETIC PEPTIDEon 07-21-2023 Natriuretic peptide B (Bld) [Mass/Vol] 841 pg/mL High 0-100 [facility] Comment on above: Performed By: #### L [id number] #### [facility] [address] [place] [address] COMPREHENSIVE METABOLIC PANE Oscar 07-21-2023 Albumin [Mass/Vol] 2.9 g/dL Low 3.5-5.7 [facility] Comment on above: Performed By: #### L [id number] #### [facility] [address] [place] [address] ALP [Catalytic activity/Vol] 97 U/L Normal 34-104 [facility] Comment on above: Performed By: #### L [id number] #### [facility] [address] [place] [address] ALT [Catalytic activity/Vol] 12 U/L Normal 7-52 [facility] Comment on above: Performed By: #### L [id number] #### [facility] [address] [place] [address] Anion gap [Moles/Vol] 11 mmol/L Normal 7-20 [facility] Comment on above: Performed By: #### L [id number] #### [facility] ([facility] [address] [place] [address] AST [Catalytic activity/Vol] 21 U/L Normal 13-39 [facility] Comment on above: Performed By: #### L [id number] #### [facility] ([facility] [address] [place] [address] Bilirubin [Mass/Vol] 0.6 mg/dL Normal 0.3-1.0 [facility] Comment on above: Performed By: #### L [id number] #### [facility] ([facility] [address] [place] [address] Calcium [Mass/Vol] 9.7 mg/dL Normal 8.6-10.3 [facility] Comment on above: Performed By: #### L [id number] #### [facility] ([facility] [address] [place] [address] Chloride [Moles/Vol] 108 mmol/L High 98-107 [facility] Comment on above: Performed By: #### L [id number] #### [facility] ([facility] [address] [place] [address] CO2 [Moles/Vol] 23 mmol/L Normal 21-31 [facility] Comment on above: Performed By: #### L [id number] #### [facility] ([facility] [address] [place] [address] Creatinine [Mass/Vol] 0.68 mg/dL Normal 0.60-1.20 [facility] Comment on above: Performed By: #### L [id number] #### [facility] ([facility] [address] [place] [address] GLOMERULAR FILTRATION RATE ML/MIN/1.73 SQ M.PREDICTED 91.3 mL/min/1.73m*2 Normal >60.0 [facility] Comment on above: Result Comment: [facility]???s estimated glomerular filtration rate (eGFR) will [...] individuals. Performed By: #### L [id number] #### [facility] ([facility] [address] [place] [address] Glucose [Mass/Vol] 92 mg/dL Normal 70-100 [facility] Comment on above: Performed By: #### L [id number] #### [facility] ([facility] [address] [facility] [place] [address] Potassium [Moles/Vol] 3.8 mmol/L Normal 3.5-5.1 [facility] Comment on above: Performed By: #### L [id number] #### [facility] ([facility] [address] [place] [address] Protein [Mass/Vol] 5.4 g/dL Low 6.0-8.3 [facility] Comment on above: Performed By: #### L [id number] #### [facility] ([facility] [address] [place] [address] Sodium [Moles/Vol] 138 mmol/L Normal 136-145 [facility] Comment on above: Performed By: #### L [id number] #### [facility] ([facility] [address] [place] [address] Urea nitrogen [Mass/Vol] 19 mg/dL Normal 7-25 [facility] Comment on above: Performed By: #### L [id number] #### [facility] ([facility] [address] [place] [address] UREA NITROGEN/CREATININE (MASS RATIO) IN SER/PLAS 27.9 Normal [facility] Comment on above: Performed By: #### L [id number] #### [facility] ([facility] [address] [place] [address] HEMOGLOBIN AND HEMATOCRIT, B LOODon 07-21-2023 Hematocrit (Bld) [Volume fraction] 29.9 % Low 36.0-48.0 [facility] Comment on above: Performed By: #### L [id number] #### [facility] ([facility] [address] [place] [address] Hemoglobin (Bld) [Mass/Vol] 9.5 g/dL Low 12.0-15.0 [facility] Comment on above: Performed By: #### L [id number] #### [facility] ([facility] [address] [place] [address] MAGNESIUMon 07-21-2023 Magnesium [Mass/Vol] 1.5 mg/dL Low 1.9-2.7 [facility] Comment on above: Performed By: #### L [id number] ####[facility] ([facility] [place] [address] T3, FREEon 07-21-2023 TRIIODOTHYRONINE (T3) FREE (PG/ML) IN SER/PLAS 3.7 pg/mL Normal 2.5-3.9 [facility] Comment on above: Performed By: #### L [id number] ####[facility] ([facility] [place] [address] T4, FREEon 07-21-2023 THYROXINE (T4) FREE (NG/DL) IN SER/PLAS 1.14 ng/dL Normal 0.71-1.85 [facility] Comment on above: Performed By: #### L [id number] ####[facility] ([facility] [place] [address] TROPONIN Ion 07-21-2023 Troponin I.cardiac [Mass/Vol] 0.04 ng/mL Normal 0.00-0.04 [facility] Comment on above: Performed By: #### L [id number] #### [facility] ([facility] [address] [place] [address] Troponin I.cardiac [Mass/Vol] 0.05 ng/mL High 0.00-0.04 [facility] Comment on above: Performed By: #### L [id number] ####[facility] ([facility] [place] [address] VITAMIN D 1,25 DIHYDROXYon 1 09-20-2022 VITAMIN D 1,25-DIHYDROXY 32.9 pg/mL Normal 19.9-79.3 [facility] Comment on above: Result Comment: INTE RPRETIVE INFORMATION: Vitamin D, 1,25-Dihydroxy This test is primarily indicated during patient evaluation for hypercalcemia and renal failure. A normal result does not rule out Vitamin D deficiency. The recommended test for diagnosing Vitamin D deficiency is Vitamin D 25-hydroxy. Performed By: [facility] [address] [place] [address] Auditing Manager: Zeus Ventura MD, PhD CLIA Number: [id number] Performed By: #### L [id number] ####[facility] [place] [address] VITAMIN D 25 HYDROXYon 07-21 CALCIDIOL (25 [place] VITAMIN D3) (NG/ML) IN SER/PLAS 23.2 ng/mL Low 30.0-80.0 [facility] Comment on above: Result Comment: >80. 0 Toxicity possible Performed By: #### L [id number] ####[facility] (JONNY)[address] [place] [address] 30on 07-20-2023 30 Daily Case Managemen t Update Multidisciplinary rounds have been completed. End of shift note. Per Progress Note/s: ER admit from cardiovascular rn office; new onset A-Fib. Heparin gtt. Cardiac [...] Reason for OT? Answer: fall 07/19/232117 Normal [facility] 30 Problem: Pain - Adul t [...] from fall injury Outcome: Progressing Flowsheets (Taken 07/20/20233) Free from fall injury: Assess patient frequently for physical needs Identify cognitive and physical deficits and behaviors that affect risk of falls [employer] fall precautions as indicated by assessment Educate [...] goals for the shift include VSS; safety [facility] Sariah 07-20-2023 ISHMAEL Patient: Darek Mejía [...] fellow and attending. Additional Equipment Requests Normal [facility] ANES Patient: Darek Mejía Choose an [...] fellow and attending. Additional Equipment Requests Normal [facility] ANTI-XA (HEPARIN LEVEL)on HEPARIN UNFRACTIONATED (U/ML) IN PPP BY CHROMOGENIC METHOD <0.10 Invalid Interpretation Code 0.3-0.7 [facility] Comment on above: Order Comment: Check anti-Xa level every 6 hours while on heparin infusion, or per protocol. Result Comment: [place] roxaban and Apixaban will interfere with the anti Xa assay used to monitor UFH and LMWH. Performed By: #### L [id number] #### [facility] ([facility]) [address] [place] [address] CBCon 07-20-2023 Erythrocyte distribution width (RBC) [Ratio] 16.4 % High 11.5-15.0 [facility] Comment on above: Performed By: #### L [id number] #### [facility] ([facility]) [address] [place] [address] ERYTHROCYTE MEAN CORPUSCULAR HEMOGLOBIN CONCENTRATION (G/DL) BY AUTOMATED 32.2 g/dL Normal 32.0-35.0 [facility] Comment on above: Performed By: #### L [id number] #### [facility] ([facility]) [address] [place] [address] Hematocrit (Bld) [Volume fraction] 32.3 % Low 36.0-48.0 [facility] Comment on above: Performed By: #### L [id number] #### [facility] ([facility] [address] [place] [address] Hemoglobin (Bld) [Mass/Vol] 10.4 g/dL Low 12.0-15.0 [facility] Comment on above: Performed By: #### L [id number] #### [facility] ([facility] [address] [place] [address] MCH (RBC) [Entitic mass] 26.8 pg Low 27.0-33.0 [facility] Comment on above: Performed By: #### L [id number] #### [facility] ([facility] [address] [place] [address] MCV (RBC) [Entitic vol] 83.2 fL Normal 82.0-98.0 [facility] Comment on above: Performed By: #### L [id number] #### [facility] ([facility] [address] [place] [address] PLATELETS (10*3/UL) IN BLOOD AUTOMATED COUNT 262 10*3/uL Normal 150-400 [facility] Comment on above: Performed By: #### L [id number] #### [facility] ([facility] [address] [place] [address] RBC (Bld) [#/Vol] 3.88 10*6/uL Normal 3.80-5.00 [facility] Comment on above: Performed By: #### L [id number] #### [facility] ([facility] [address] [place] [address] WBC (Bld) [#/Vol] 5.76 10*3/uL Normal 4.00-10.60 [facility] Comment on above: Performed By: #### L [id number] #### [facility] ([facility] [address] [place] [address] CONSULTon 07-20-2023 CONSULT --- Attestation signed by [...] CKMB, CKM (more content not included)... Normal [facility] HPon 07-20-2023 History Of Present Illness [...] further evaluate symptoms Faith Hassan DO, MPH Press Manager [facility] Normal [facility] HP H&P reviewed. The patient was examined and there are no changes to the H&P. [facility] ANTI-XA (HEPARIN LEVEL)on HEPARIN UNFRACTIONATED (U/ML) IN PPP BY CHROMOGENIC METHOD <0.10 Invalid Interpretation Code 0.3-0.7 [facility] Comment on above: Order Comment: Check anti-Xa level every 6 hours while on heparin infusion, or per protocol. Result Comment: [place] roxaban and Apixaban will interfere with the anti Xa assay used to monitor UFH and LMWH. Performed By: #### L [id number] #### [facility] ([facility] [address] [place] [address] APTTon 07-19-2023 ACTIVATED PARTIAL THROMBOPLASTIN TIME IN PPP BY COAGULATION ASSAY 29.1 Seconds Normal 25.0-35.0 [facility] Comment on above: Order Comment: Basel ine aPTT before initiating heparin infusion. Result Comment: Clin ical significance of the APTT is questionable in the presence of heparin. Performed By: #### L [id number] #### [facility] ([facility] [address] [place] [address] CBC WITH AUTO DIFFERENTIALon 07-19-2023 Basophils (Bld) [#/Vol] 0.07 10*3/uL Normal 0.00-0.20 [facility] Comment on above: Performed By: #### L [id number] #### [facility] ([facility] [address] [place] [address] Basophils/100 WBC (Bld) 1.1 % High 0.0-1.0 [facility] Comment on above: Performed By: #### L [id number] #### [facility] ([facility] [address] [place] [address] Eosinophils (Bld) [#/Vol] 0.10 10*3/uL Normal 0.00-0.50 [facility] Comment on above: Performed By: #### L [id number] #### [facility] ([facility] [address] [place] [address] Eosinophils/100 WBC (Bld) 1.6 % Normal 0.0-6.0 [facility] Comment on above: Performed By: #### L [id number] #### [facility] ([facility] [address] [place] [address] Erythrocyte distribution width (RBC) [Ratio] 16.4 % High 11.5-15.0 [facility] Comment on above: Performed By: #### L [id number] #### [facility] [address] [place] [address] ERYTHROCYTE MEAN CORPUSCULAR HEMOGLOBIN CONCENTRATION (G/DL) BY AUTOMATED 31.8 g/dL Low 32.0-35.0 [facility] Comment on above: Performed By: #### L [id number] #### [facility] ([facility]) [address] [place] [address] Hematocrit (Bld) [Volume fraction] 35.5 % Low 36.0-48.0 [facility] Comment on above: Performed By: #### L [id number] #### [facility] ([facility]) [address] [place] [address] Hemoglobin (Bld) [Mass/Vol] 11.3 g/dL Low 12.0-15.0 [facility] Comment on above: Performed By: #### L [id number] #### [facility] [address] [place] [address] Immature granulocytes (Bld) [#/Vol] 0.02 10*3/uL Normal 0.00-0.20 [facility] Comment on above: Performed By: #### L [id number] #### [facility] ([facility]) [address] [place] [address] Immature granulocytes/100 WBC (Bld) 0.3 % Normal 0.0-1.0 [facility] Comment on above: Performed By: #### L [id number] #### [facility] ([facility]) [address] [place] [address] Lymphocytes (Bld) [#/Vol] 1.76 10*3/uL Normal 1.20-4.00 [facility] Comment on above: Performed By: #### L [id number] #### [facility] (BEAKER) [address] [place] [address] Lymphocytes/100 WBC (Bld) 28.5 % Normal 20.0-45.0 [facility] Comment on above: Performed By: #### L [id number] #### [facility] (BEAKER) [address] [place] [address] MCH (RBC) [Entitic mass] 26.9 pg Low 27.0-33.0 [facility] Comment on above: Performed By: #### L [id number] #### [facility] ([facility] [address] [place] [address] MCV (RBC) [Entitic vol] 84.5 fL Normal 82.0-98.0 [facility] Comment on above: Performed By: #### L [id number] #### [facility] ([facility] [address] [place] [address] Monocytes (Bld) [#/Vol] 0.48 10*3/uL Normal 0.10-1.00 [facility] Comment on above: Performed By: #### L [id number] #### [facility] ([facility] [address] [place] [address] Monocytes/100 WBC (Bld) 7.8 % Normal 5.0-12.0 [facility] Comment on above: Performed By: #### L [id number] #### [facility] ([facility] [address] [place] [address] Neutrophils (Bld) [#/Vol] 3.74 10*3/uL Normal 1.60-7.60 [facility] Comment on above: Performed By: #### L [id number] #### [facility] ([facility] [address] [place] [address] Neutrophils/100 WBC (Bld) 60.7 % Normal 40.0-72.0 [facility] Comment on above: Performed By: #### L [id number] #### [facility] [address] [place] [address] NRBC (PER 100 WBCS) BY AUTOMATED COUNT 0.0 % Normal 0 [facility] Comment on above: Performed By: #### L [id number] #### [facility] (BEAKER) [address] [place] [address] PLATELETS (10*3/UL) IN BLOOD AUTOMATED COUNT 289 10*3/uL Normal 150-400 [facility] Comment on above: Performed By: #### L [id number] #### [facility] ([facility] [address] [place] [address] RBC (Bld) [#/Vol] 4.20 10*6/uL Normal 3.80-5.00 [facility] Comment on above: Performed By: #### L [id number] #### [facility] ([facility] [address] [place] [address] WBC (Bld) [#/Vol] 6.17 10*3/uL Normal 4.00-10.60 [facility] Comment on above: Performed By: #### L [id number] #### [facility] ([facility] [address] [place] [address] COMPREHENSIVE METABOLIC PANE Oscar 07-19-2023 Albumin [Mass/Vol] 3.7 g/dL Normal 3.5-5.7 [facility] Comment on above: Performed By: #### L [id number] #### [facility] ([facility] [address] [place] [address] ALP [Catalytic activity/Vol] 132 U/L High 34-104 [facility] Comment on above: Performed By: #### L [id number] #### [facility] ([facility] [address] [place] [address] ALT [Catalytic activity/Vol] 17 U/L Normal 7-52 [facility] Comment on above: Performed By: #### L [id number] #### [facility] ([facility] [address] [place] [address] Anion gap [Moles/Vol] 11 mmol/L Normal 7-20 [facility] Comment on above: Performed By: #### L [id number] #### [facility] ([facility] [address] [place] [address] AST [Catalytic activity/Vol] 23 U/L Normal 13-39 [facility] Comment on above: Performed By: #### L [id number] #### [facility] (BEAKER) [address] [place] [address] Bilirubin [Mass/Vol] 0.9 mg/dL Normal 0.3-1.0 [facility] Comment on above: Performed By: #### L [id number] #### [facility] (BEAKER) [address] [place] [address] Calcium [Mass/Vol] 10.7 mg/dL High 8.6-10.3 [facility] Comment on above: Performed By: #### L [id number] #### [facility] (BEAKER) [address] [place] [address] Chloride [Moles/Vol] 104 mmol/L Normal 98-107 [facility] Comment on above: Performed By: #### L [id number] #### [facility] [address] [place] [address] CO2 [Moles/Vol] 28 mmol/L Normal 21-31 [facility] Comment on above: Performed By: #### L [id number] #### [facility] [address] [place] [address] Creatinine [Mass/Vol] 0.66 mg/dL Normal 0.60-1.20 [facility] Comment on above: Performed By: #### L [id number] #### [facility] [address] [place] [address] GLOMERULAR FILTRATION RATE ML/MIN/1.73 SQ M.PREDICTED 92.0 mL/min/1.73m*2 Normal >60.0 [facility] Comment on above: Result Comment: [facility]???s estimated glomerular filtration rate (eGFR) will [...] individuals. Performed By: #### L [id number] #### [facility] ([facility] [address] [place] [address] Glucose [Mass/Vol] 131 mg/dL High 70-100 [facility] Comment on above: Performed By: #### L [id number] #### [facility] ([facility] [address] [place] [address] Potassium [Moles/Vol] 3.5 mmol/L Normal 3.5-5.1 [facility] Comment on above: Performed By: #### L [id number] #### [facility] ([facility] [address] [place] [address] Protein [Mass/Vol] 6.8 g/dL Normal 6.0-8.3 [facility] Comment on above: Performed By: #### L [id number] #### [facility] ([facility] [address] [place] [address] Sodium [Moles/Vol] 139 mmol/L Normal 136-145 [facility] Comment on above: Performed By: #### L [id number] #### [facility] ([facility] [address] [place] [address] Urea nitrogen [Mass/Vol] 15 mg/dL Normal 7-25 [facility] Comment on above: Performed By: #### L [id number] #### [facility] ([facility] [address] [place] [address] UREA NITROGEN/CREATININE (MASS RATIO) IN SER/PLAS 22.7 Normal [facility] Comment on above: Performed By: #### L [id number] #### [facility] ([facility] [address] [place] [address] [facility] 07-19-2023 [facility] Cardiology Clinic Note Chief Complaint: Patient [...] with ejection (more content not included)... Normal [facility] MAGNESIUMon 07-19-2023 Magnesium [Mass/Vol] 1.6 mg/dL Low 1.9-2.7 [facility] Comment on above: Performed By: #### L [id number] #### [facility] (BEAKER) [address] [place] [address] Office Visiton 07-19-2023 Follow-up visit [id number] Darek Mejía 1950 F Date Provider Department Center 07/19/2023 [id number], OPAL CARD [facility] Family History Problem Relation Age of Onset Coronary artery disease Father Diabetes Father Family Status - Relation Status Age at Father Level of Service:14837 [place] OFFICE/OUTPATIENT ESTABLISHED HIGH MDM 40-54 MIN Normal [facility] T4, FREEon 07-19-2023 THYROXINE (T4) FREE (NG/DL) IN SER/PLAS 1.31 ng/dL Normal 0.71-1.85 [facility] Comment on above: Performed By: #### L [id number] #### [facility] (BEAKER) [address] [place] [address] TSH3 REFLEX TO FT4on 023 THYROTROPIN (MIU/L) IN SER/PLAS BY DETECTION LIMIT <= 0.05 MIU/L 0.06 mIU/L Low 0.34-5.60 [facility] Comment on above: Performed By: #### L [id number] #### [facility] (BEAKER) [address] [place] [address] 36on 07-02-2023 36 Sandy just did patien t's echo. She came over to the office to make us aware that she sounded like she was in afib, and patient didn't recall ever being told she had this. She did ECG. 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 Please advise. Thanks. [facility] Office Visiton 04-23-2023 Follow-up visit [id number] Darek Mejía 1950 F Date Provider Department Center 04/23/2023 Areli-OPAL CARVALHO Family History Problem Relation Age of Onset Coronary artery disease Father Diabetes Father Family Status - Relation Status Age at Father Level of Service:78334 [place] OFFICE/OUTPATIENT ESTABLISHED MOD MDM 30-39 MIN [facility] Office Visiton 01-31-2023 Follow-up visit [id number] Darek Mejía 1950 F Date Provider Department Center 01/31/2023 HAWA BACA MARIANA Roy Family History Problem Relation Age of Onset Coronary artery disease Father Diabetes Father Family Status - Relation Status Age at Father Level of Service:66751 [place] OFFICE/OUTPATIENT ESTABLISHED MOD MDM 30-39 MIN [facility] 36on 01-11-2023 36 I am putting in a script for aldactone, then she needs BMP in 1 week to assess renal function and potassium level. Have her f/U in 2-4 weeks to review b/p please [facility] Orders Onlyon 01-11-2023 Orders Only [id number] Darek Mejía 1950 F Date Provider Department Center 01/11/2023 HAWA BACA MARIANA Bobby. Family History Problem Relation Age of Onset Coronary artery disease Father Diabetes Father Family Status - Relation Status Age at Father [facility] 36on 01-10-2023 36 . [facility] Office Visiton 12-21-2022 Follow-up visit [id number] Darek Mejía 1950 F Date Provider Department Center 12/21/2022 HAWA BACA [facility] Family History Problem Relation Age of Onset Coronary artery disease Father Diabetes Father Family Status - Relation Status Age at Father Level of Service:05700 [place] OFFICE/OUTPATIENT ESTABLISHED MOD MDM 30-39 MIN Reason for Visit and Comments: Coronary Artery Disease [187] Congestive Heart Failure [127] Hypertension [850211] Normal [facility] FREE T3on 11-30-2022 FREE T3 2.19 pg/mlL Normal 2.18-3.98 [facility] Comment on above: Performed By: #### T 4, FT3, TSH #### [facility] [address] [address] [address] Rich Pham T4on 11-30-2022 T4 [Mass/Vol] 11.10 ug/dL Normal 4.80-13.90 [facility] Comment on above: Performed By: #### T 4, FT3, TSH #### [facility] [address] [address] [address] Rich Pham TSHon 11-30-2022 TSH 0.525 uIU/mL Normal 0.358-3.740 [facility] Comment on above: Performed By: #### T 4, FT3, TSH #### [facility] [address] [place] [address] Dr. Rich Pham ANES POSTPROC EVALon 023 ANES POSTPROC EVAL HNO ID: [id number] Author: David Dunn II, DO Service: Anesthesiology Author Type: Anesthesiologist Type: Anesthesia Postprocedure Evaluation Filed: 11/01/2022 12:35 PM Note Text: POST ANESTHESIA EVALUATION NOTE : 1950 Procedure Summary Date: 11/01/22 Room / Location: [place] [address] / [facility], [facility]IN [facility] Anesthesia Start: 1109 Anesthesia Stop: 1130 Procedures: [...] November 01, 2022 TIME: 12:35 PM CSN: [id number] Normal [facility] ANES PRE-OPon 11-01-2022 ANES PRE-OP HNO ID: [id number] Author: David Dunn II, DO Service: Anesthesiology Author Type: Anesthesiologist Type: Anesthesia Preprocedure Evaluation Filed: 11/01/2022 10:15 AM Note Text: ANESTHESIOLOGY DAY OF SURGERY NOTE : 1950 Procedure Information Date/Time: 11/01/22 1100 Procedures: PHACOEMULSIFICATION CATARACT IMPLANT INTRAOCULAR LENS W/O ENDOSCOPIC CYCLOPHOTOCOAGULATION (Left: Eye) OPHTHALMIC BIOMETRY BY PARTIAL COHERENCE INTERFEROMETRY W/INTRAOCULAR LENS POWER CALCULATION (Left: Eye) Location: [address] Surgeons: Aleksandar Wilson V, MD Estimated body mass index is 21.31 kg/m? as calculated from the following: Height as of 10/30/22: 167.6 cm (5' 6 ). Weight as of 10/30/22: 59.9 kg (132 lb). 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 STRATEGY PLANNING CONSULTANT: None Procedure(s) (LRB): PHACOEMULSIFICATION CATARACT IMPLANT INTRAOCULAR [...] corneal incision was created temporally with a Shinnecock blade then a 2.4 mm keratome. The anterior chamber was reformed with Viscoat, after which the anterior capsule was opened centrally. Using the Utrata forceps a continuous curvilinear capsulorrhexis of approximately 5.5 mm round was created. Gentle hydrodissection was accomplished using preservative-free lidocaine on a 27-gauge cannula. Using the Renny phacoemulsification unit with the [employer] curved tip, the anterior chamber was entered [...] Implant Name Type Inv. Item Serial No. Rodeo Rider Lot No. LRB No. Used Action Model No. LENS IOL 0D +21 [employer] - [id number] Intraocular Lens LENS IOL 0D +21 [employer] [id number] [employer] Left 1 Implanted [id number] [...] 11:26 AM - Comanage with Dr Mccollum; relinquadventhealth care POD #1 Aleksandar WILSON MD Normal [facility] FREE T3on 10-30-2022 FREE T3 2.77 pg/mlL Normal 2.18-3.98 [facility] Comment on above: Performed By: #### F T3, TSH, BNP, T4 #### [facility] [address] [place] [address] Dr. Rich Pham HISTORY PHYSICALon HISTORY PHYSICAL HNO ID: [id number] Author: Apple Gomez APRN.BELT POLISHER Service: ? Author Type: Nurse Practitioner Type: [...] ACTIVE PROBLEM LIST Smoking Addiction Atherosclerosis of [place] Coronary Artery of [place] Heart Without Angina Pectoris Mild Left Ventricular Systolic Dysfunction Primary Hypertension Coronary Artery Disease Involving Coronary Bypass Graft of [place] Heart With Angina Pectoris (Hcc) Atelectasis Hypervolemia [...] OF URETHRAL STRICT HEART CATHETERIZATION 2004 at [facility] KIDNEY STONE [...] fevers. Neuro: No history of TIA's, stroke, ASSET PROTECTION SPECIALIST tumor, impaired sensorium, (more content not included)... Normal [facility] T4on 10-30-2022 T4 [Mass/Vol] 3.40 ug/dL Critically low 4.80-13.90 [facility] Comment on above: Performed By: #### F T3, TSH, BNP, T4 #### [facility] [address] [address] [address] Rich Pham [facility] 10-30-2022 TSH 2.102 uIU/mL Normal 0.358-3.740 [facility] Comment on above: Performed By: #### F T3, TSH, BNP, T4 #### [facility] [address] [address] [address] Rich Pham [facility] 10-18-2022 CNPN Telephone ([employer]) DAREK MEJÍA ([id number]) 1950 F Date Time Provider Department 10/18/22 [...] Resolved Smoking addiction [F17.200] 06/22/2015 Atherosclerosis of [place] coronary artery of na*06/22/2015 Mild left ventricular [...] Status:Closed by HAVEN MORENO on 10/18/22 Normal [facility] FREE T3on 08-30-2022 FREE T3 1.95 pg/mlL Critically low 2.18-3.98 [facility] Comment on above: Performed By: #### F T3, TSH, BNP, T4 #### [facility] [address] [address] [address] Rich Pham T4on 08-30-2022 T4 [Mass/Vol] 8.00 ug/dL Normal 4.80-13.90 [facility] Comment on above: Performed By: #### F T3, TSH, BNP, T4 #### [facility] [address] [address] [address] Rich Pham TSHon 08-30-2022 TSH 3.033 uIU/mL Normal 0.358-3.740 [facility] Comment on above: Performed By: #### F T3, TSH, BNP, T4 #### [facility] [address] [place] [address] Dr. Rich Pham ECHOCARDIO M/2D COMPLETEon 1 10-17-2021 ECHOCARDIO M/2D COMPLETE Patient: DAREK MEJÍA Exam Date: 08/16/2022 : 1950 Gender:F Ordering : HAWA R[place] Admission #: [id number] Family : DR KAYLEIGH GAY . Order #: [id number] CLICK HERE TO VIEW EXAM ECHOCARDIOGRAM REPORT [...] M.D. on 08/18/2022 at 16:30 Normal [facility] BNPon 07-24-2022 Natriuretic peptide B (Bld) [Mass/Vol] 1535.0 pg/mL Critically high <=900.0 [facility] Comment on above: Performed By: #### F T3, TSH, BNP, T4 #### [facility] [address] [place] [address] Dr. Rich Pham FREE T3on 07-24-2022 FREE T3 1.90 pg/mlL Critically low 2.18-3.98 [facility] Comment on above: Performed By: #### F T3, TSH, BNP, T4 #### [facility] [address] [place] [address] Dr. Rich Pham T4on 07-24-2022 T4 [Mass/Vol] 9.10 ug/dL Normal 4.80-13.90 [facility] Comment on above: Performed By: #### F T3, TSH, BNP, T4 #### [facility] [address] [place] [address] Dr. Rich Pham TSHon 07-24-2022 TSH 1.057 uIU/mL Normal 0.358-3.740 [facility] Comment on above: Performed By: #### F T3, TSH, BNP, T4 #### [facility] [address] [place] [address] Dr. Rich Pham INSULINon 06-20-2022 Insulin 7.0 uIU/mL Normal 2.6-24.9 [facility] Comment on above: Performed By: #### F T3, TSH, BNP, T4 #### [facility] [address] [place] [address] Dr. Rich Pham BNPon 06-19-2022 Natriuretic peptide B (Bld) [Mass/Vol] 962.0 pg/mL Critically high <=900.0 [facility] Comment on above: Performed By: #### F T3, TSH, BNP, T4 #### [facility] [address] [place] [address] Dr. Rich Pham CBC AUTO DIFFon 06-19-2022 BASO # 0.1 103/ul Normal 0.0-0.1 [facility] Comment on above: Performed By: #### F T3, TSH, BNP, T4 #### [facility] [address] [place] [address] Dr. Rich Pham Basophils/100 WBC (Bld) 1.3 % Normal 0.2-2.0 [facility] Comment on above: Performed By: #### F T3, TSH, BNP, T4 #### [facility] [address] [place] [address] Dr. Rich Pham EO # 0.1 103/ul Normal 0.0-0.7 [facility] Comment on above: Performed By: #### F T3, TSH, BNP, T4 #### [facility] [address] [place] [address] Dr. Rich Pham Eosinophils/100 WBC (Bld) 1.9 % Normal 0.9-7.0 [facility] Comment on above: Performed By: #### F T3, TSH, BNP, T4 #### [facility] [address] [place] [address] Dr. Rich Pham Erythrocyte distribution width (RBC) [Ratio] 13.7 % Normal 11.0-15.0 [facility] Comment on above: Performed By: #### F T3, TSH, BNP, T4 #### [facility] [address] [place] [address] Dr. Rich Pham Hematocrit (Bld) [Volume fraction] 39.5 % Normal 36.0-48.0 [facility] Comment on above: Performed By: #### F T3, TSH, BNP, T4 #### [facility] [address] [place] [address] Dr. Rich Pham Hemoglobin (Bld) [Mass/Vol] 12.7 g/dL Normal 12.0-16.0 [facility] Comment on above: Performed By: #### F T3, TSH, BNP, T4 #### [facility] [address] [place] [address] Dr. Rich Pham IG # 0.03 10e3/ul Normal 0.00-0.03 [facility] Comment on above: Performed By: #### F T3, TSH, BNP, T4 #### [facility] [address] [place] [address] Dr. Rich Pham IG % 0.4 % Normal 0.0-0.5 [facility] Comment on above: Performed By: #### F T3, TSH, BNP, T4 #### [facility] [address] [place] [address] Dr. Rich Pham LYMPH # 2.5 103/ul Normal 1.2-3.8 [facility] Comment on above: Performed By: #### F T3, TSH, BNP, T4 #### [facility] [address] [place] [address] Dr. Rich Pham Lymphocytes/100 WBC (Bld) 32.8 % Normal 20.5-60.0 [facility] Comment on above: Performed By: #### F T3, TSH, BNP, T4 #### [facility] [address] [place] [address] Dr. Rich Pham MANUAL DIFF REQ NO Normal [facility] Comment on above: Performed By: #### F T3, TSH, BNP, T4 #### [facility] [address] [place] [address] Dr. Rich Pham MCH (RBC) [Entitic mass] 28.5 pg Normal 26.7-34.0 [facility] Comment on above: Performed By: #### F T3, TSH, BNP, T4 #### [facility] [address] [place] [address] Dr. Rich Pham MCHC (RBC) [Mass/Vol] 32.2 g/dL Normal 29.9-35.2 [facility] Comment on above: Performed By: #### F T3, TSH, BNP, T4 #### [facility] [address] [place] [address] Dr. Rich Pham MCV (RBC) [Entitic vol] 88.6 fL Normal 81.0-99.0 [facility] Comment on above: Performed By: #### F T3, TSH, BNP, T4 #### [facility] [address] [place] [address] Dr. Rich Pham MONO # 0.6 103/ul Normal 0.3-0.8 [facility] Comment on above: Performed By: #### F T3, TSH, BNP, T4 #### [facility] [address] [place] [address] Dr. Rich Pham Monocytes/100 WBC (Bld) 7.6 % Normal 1.7-12.0 [facility] Comment on above: Performed By: #### F T3, TSH, BNP, T4 #### [facility] [address] [place] [address] Dr. Rich Pham NEUT # 4.2 103/ul Normal 1.4-6.5 [facility] Comment on above: Performed By: #### F T3, TSH, BNP, T4 #### [facility] [address] [place] [address] Dr. Rich Pham Neutrophils/100 WBC (Bld) 56.0 % Normal 43.0-75.0 [facility] Comment on above: Performed By: #### F T3, TSH, BNP, T4 #### [facility] [address] [place] [address] Dr. Rich Pham Platelet mean volume (Bld) [Entitic vol] 10.4 fL Normal 9.5-13.5 [facility] Comment on above: Performed By: #### F T3, TSH, BNP, T4 #### [facility] [address] [place] [address] Dr. Rich Pham PLT 253 103/ul Normal 150-450 [facility] Comment on above: Performed By: #### F T3, TSH, BNP, T4 #### [facility] [address] [place] [address] Dr. Rich Pham RBC 4.46 106/ul Normal 4.20-5.40 [facility] Comment on above: Performed By: #### F T3, TSH, BNP, T4 #### [place] [facility] [address] [place] [address] Dr. Rich Pham WBC 7.5 103/ul Normal 4.0-11.0 [facility] Comment on above: Performed By: #### F T3, TSH, BNP, T4 #### [facility] [address] [place] [address] LUNG CANCER SCREENINGon [...] VASU EVANS Date: 2022-06-19 21:05 Normal [facility] FREE THYROXINE INDEX T7on FTI 2.24 Normal 1.30-4.50 [facility] Comment on above: Performed By: #### F T3, TSH, BNP, T4 #### [facility] [address] [place], [place] [address] Dr. Rich Pham T3U 33.0 % Normal 30.0-39.0 [facility] Comment on above: Performed By: #### F T3, TSH, BNP, T4 #### [facility] [address] [place], [place] [address] Dr. Rich Pham T4 [Mass/Vol] 6.80 ug/dL Normal 4.80-13.90 [facility] Comment on above: Performed By: #### F T3, TSH, BNP, T4 #### [facility] [address] [place], [place] [address] Dr. Rich Pham GLYCOHEMOGLOBIN A1Con 2021 ADA RECOMMENDATION SEE BELOW Normal [facility] Comment on above: Result Comment: ADA RECOMMENDED LIMIT 4.0 - 6.0 ADA THERAPEUTIC TARGET < 7.0 ACTION SUGGESTED > 7.0 Performed By: #### F T3, TSH, BNP, T4 #### [facility] [address] [address] [address] Rich Pham Glucose [Mass/Vol] 117 mg/dL Normal [facility] Comment on above: Performed By: #### F T3, TSH, BNP, T4 #### [facility] [address] [address] [address] Rich Pham HbA1c (Bld) [Mass fraction] 5.7 % Normal 4.5-6.2 [facility] Comment on above: Performed By: #### F T3, TSH, BNP, T4 #### [facility] [address] [place] [address] Dr. Rich Pham IRONon 06-19-2022 Iron [Mass/Vol] 50.0 ug/dL Normal 50.0-170.0 [facility] Comment on above: Performed By: #### I IAM HARO #### [facility] [address] [address] [address] Rich Pham LIPID PROFILEon 06-19-2022 CHOL-HDL RATIO NORM SEE BELOW Normal [facility] Comment on above: Result Comment: 3.3 - 4.4 LOW RISK 4.4 - 7.1 AVERAGE RISK 7.1 - 11.0 MODERATE RISK >11.0 HIGH RISK Performed By: #### F T3, TSH, BNP, T4 #### [facility] [address] [address] [address] Rich Pham Cholesterol [Mass/Vol] 142 mg/dL Normal <=200 [facility] Comment on above: Performed By: #### F T3, TSH, BNP, T4 #### [facility] [address] [address] [address] Rich Pham Cholesterol in HDL [Mass/Vol] 52 mg/dL Normal 40-60 [facility] Comment on above: Performed By: #### F T3, TSH, BNP, T4 #### [facility] [address] [address] [address] Rich Pham Cholesterol in LDL [Mass/Vol] 78.8 mg/dL Normal [facility] Comment on above: Performed By: #### F T3, TSH, BNP, T4 #### [facility] [address] [address] [address] Rich Pham Cholesterol.total/Ch olesterol in HDL [Mass ratio] 2.7 {ratio} Normal [facility] Comment on above: Performed By: #### F T3, TSH, BNP, T4 #### [facility] [address] [address] [address] Rich Pham HDL NORMAL > or = 60 mg/dl - LO W CARDIOVASCULAR RISK <40 mg/dl - HIGH CARDIOVASCULAR RISK Normal [facility] Comment on above: Performed By: #### F T3, TSH, BNP, T4 #### [facility] [address] [place] [address] Dr. Rich Phma LDL CALC NORMAL SEE BELOW Normal [facility] Comment on above: Result Comment: <100 mg/dl OPTIMAL 100 - 129 mg/dl NEAR OR ABOVE OPTIMAL 130 - 159 mg/dl BORDERLINE HIGH 160 - 189 mg/dl HIGH >190 mg/dl VERY HIGH Performed By: #### F T3, TSH, BNP, T4 #### [facility] [address] [address] [address] Rich Pham Triglyceride [Mass/Vol] 56 mg/dL Normal <=150 [facility] Comment on above: Performed By: #### F T3, TSH, BNP, T4 #### [facility] [address] [address] [address] Rich Pham VLDL CALC 11.2 mg/dL Normal [facility] Comment on above: Performed By: #### F T3, TSH, BNP, T4 #### [facility] [address] [place] [address] Dr. Rich Pham PROF 14(COMP METB)on 022 Albumin [Mass/Vol] 3.5 g/dL Normal 3.4-5.0 [facility] Comment on above: Performed By: #### F T3, TSH, BNP, T4 #### [facility] [address] [place] [address] Dr. Rich Pham Albumin/Globulin [Mass ratio] 0.9 {ratio} Normal [facility] Comment on above: Performed By: #### F T3, TSH, BNP, T4 #### [facility] [address] [place] [address] Dr. Rich Pham ALP [Catalytic activity/Vol] 95 U/L Normal 46-116 [facility] Comment on above: Performed By: #### F T3, TSH, BNP, T4 #### [facility] [address] [place] [address] Dr. Rich hPam ALT [Catalytic activity/Vol] 22 U/L Normal 14-59 [facility] Comment on above: Performed By: #### F T3, TSH, BNP, T4 #### [facility] [address] [place] [address] Dr. Rich hPam Anion gap [Moles/Vol] 11.3 mmol/L Normal [facility] Comment on above: Performed By: #### F T3, TSH, BNP, T4 #### [facility] [address] [place] [address] Dr. Rich Pham AST [Catalytic activity/Vol] 21 U/L Normal 15-37 [facility] Comment on above: Performed By: #### F T3, TSH, BNP, T4 #### [facility] [address] [place] [address] Dr. Rich Pham Bilirubin [Mass/Vol] 0.4 mg/dL Normal 0.2-1.0 [facility] Comment on above: Performed By: #### F T3, TSH, BNP, T4 #### [facility] [address] [place] [address] Dr. Rich Pham Calcium [Mass/Vol] 10.4 mg/dL Critically high 8.5-10.1 [facility] Comment on above: Performed By: #### F T3, TSH, BNP, T4 #### [facility] [address] [place] [address] Dr. Rich Pham Chloride [Moles/Vol] 105 mmol/L Normal 98-107 [facility] Comment on above: Performed By: #### F T3, TSH, BNP, T4 #### [facility] [address] [address] [address] Rich Pham CO2 [Moles/Vol] 27.8 mmol/L Normal 21.0-32.0 [facility] Comment on above: Performed By: #### F T3, TSH, BNP, T4 #### [facility] [address] [place] [address] Dr. Rich Pham Creatinine [Mass/Vol] 0.94 mg/dL Normal 0.55-1.02 [facility] Comment on above: Performed By: #### F T3, TSH, BNP, T4 #### [facility] [address] [place] [address] Dr. Rich Pham EGFR-AF GUINEAN >60 Normal >=60 [facility] Comment on above: Performed By: #### F T3, TSH, BNP, T4 #### [facility] [address] [place] [address] Dr. Rich Pham EGFR-NON AF GUINEAN 58 mL/min/1.73m2 Critically low >=60 [facility] Comment on above: Performed By: #### F T3, TSH, BNP, T4 #### [facility] [address] [place] [address] Dr. Rich Pham Globulin (S) [Mass/Vol] 3.9 g/dL Normal [facility] Comment on above: Performed By: #### F T3, TSH, BNP, T4 #### [facility] [address] [place] [address] Dr. Rich Pham Glucose [Mass/Vol] 94 mg/dL Normal 74-106 [facility] Comment on above: Performed By: #### F T3, TSH, BNP, T4 #### [facility] [address] [place] [address] Dr. Rich Pham Potassium [Moles/Vol] 4.1 mmol/L Normal 3.5-5.1 [facility] Comment on above: Performed By: #### F T3, TSH, BNP, T4 #### [facility] [address] [place] [address] Dr. Rich Pham Protein [Mass/Vol] 7.4 g/dL Normal 6.4-8.2 [facility] Comment on above: Performed By: #### F T3, TSH, BNP, T4 #### [facility] [address] [place] [address] Dr. Rich Pham Sodium [Moles/Vol] 140 mmol/L Normal 136-145 [facility] Comment on above: Performed By: #### F T3, TSH, BNP, T4 #### [facility] [address] [place] [address] Dr. Rich Pham Urea nitrogen [Mass/Vol] 15.0 mg/dL Normal 7.0-18.0 [facility] Comment on above: Performed By: #### F T3, TSH, BNP, T4 #### [facility] [address] [place] [address] Dr. Rich Pham Urea nitrogen/Creatinine [Mass ratio] 16.0 mg/mg Normal [facility] Comment on above: Performed By: #### F T3, TSH, BNP, T4 #### [facility] [address] [place] [address] Dr. Rich Pham TSHon 06-19-2022 TSH 6.083 uIU/mL Critically high 0.358-3.740 [facility] Comment on above: Performed By: #### F T3, TSH, BNP, T4 #### [facility] [address] [place] [address] Dr. Rich Pham VITAMIN D 25 OHon 06-19-2022 VIT D 25-OH 41.3 ng/mL Normal [facility] Comment on above: Performed By: #### F T3, TSH, BNP, T4 #### [facility] [address] [place] [address] Dr. Rich Pham VIT D RANGES SEE BELOW Normal [facility] Comment on above: Result Comment: <20 ng/mL Vit D deficient 20 - <30 ng/mL Vit D insufficient 30 - 100 ng/mL Vit D sufficient >100 ng/mL Potential Toxicity Performed By: #### F T3, TSH, BNP, T4 #### [facility] [address] [place] [address] Dr. Rich Pham PROF CHEM 8 (BAS METB)on Anion gap [Moles/Vol] 11.9 mmol/L Normal [facility] Comment on above: Performed By: #### F T3, TSH, BNP, T4 #### [facility] [address] [place] [address] Dr. Rich Pham Calcium [Mass/Vol] 9.9 mg/dL Normal 8.5-10.1 [facility] Comment on above: Performed By: #### F T3, TSH, BNP, T4 #### [facility] [address] [place] [address] Dr. Rich Pham Chloride [Moles/Vol] 101 mmol/L Normal 98-107 [facility] Comment on above: Performed By: #### F T3, TSH, BNP, T4 #### [facility] [address] [place] [address] Dr. Rich Pham CO2 [Moles/Vol] 30.0 mmol/L Normal 21.0-32.0 [facility] Comment on above: Performed By: #### F T3, TSH, BNP, T4 #### [facility] [address] [place] [address] Dr. Rich Pham Creatinine [Mass/Vol] 1.10 mg/dL Critically high 0.55-1.02 [facility] Comment on above: Performed By: #### F T3, TSH, BNP, T4 #### [facility] [address] [place] [address] Dr. Rich Pham EGFR-AF GUINEAN 59 mL/min/1.73m2 Critically low >=60 [facility] Comment on above: Performed By: #### F T3, TSH, BNP, T4 #### [facility] [address] [place] [address] Dr. Rich Pham EGFR-NON AF GUINEAN 49 mL/min/1.73m2 Critically low >=60 [facility] Comment on above: Performed By: #### F T3, TSH, BNP, T4 #### [facility] [address] [place] [address] Dr. Rich Pham Glucose [Mass/Vol] 115 mg/dL Critically high 74-106 [facility] Comment on above: Performed By: #### F T3, TSH, BNP, T4 #### [facility] [address] [address] [address] Rich Pham Potassium [Moles/Vol] 3.9 mmol/L Normal 3.5-5.1 [facility] Comment on above: Performed By: #### F T3, TSH, BNP, T4 #### [facility] [address] [place] [address] Dr. Rich Pham Sodium [Moles/Vol] 139 mmol/L Normal 136-145 [facility] Comment on above: Performed By: #### F T3, TSH, BNP, T4 #### [facility] [address] [place] [address] Dr. Rich Pham Urea nitrogen [Mass/Vol] 15.0 mg/dL Normal 7.0-18.0 [facility] Comment on above: Performed By: #### F T3, TSH, BNP, T4 #### [facility] [address] [place] [address] Dr. Rich Pham Urea nitrogen/Creatinine [Mass ratio] 13.6 mg/mg Normal [facility] Comment on above: Performed By: #### F T3, TSH, BNP, T4 #### [facility] [address] [place] [address] Dr. Rich Pham FLUORO FOR SURGICAL PROCEDUR [...] Juvenal Cagle MD 04/10/19 Final result Normal [facility] Surgical Specimenon 04-10-20 Surgical Specimen [facility] [address] [place], [place] [id number] FINAL SURGICAL PATHOLOGY REPORT Patient Name: DAREK MEJÍA Accession No: [id number] Age Sex: 1950 Location: [place] Account No: [id number] Collected: 04/10/[address] [facility] Rec No: [id number] Received: 04/10/2019 Attend Phys: ESTEBAN LÓPEZ Completed: 04/15/2019 Perform Phys: ESTEBAN LÓPEZ FINAL DIAGNOSIS: DISK TISSUE- DISK CARTILAGE WITH MARKED DEGENERATIVE CHANGES. FRAGMENTS OF BONE, MINUTE AREA SHOWING NORMAL CELLULAR BONE MARROW INCLUDING MEGAKARYOCYTES. SYNOVIAL TISSUE WITH REACTIVE CHANGES. SIVES/SIVGABY CLINICAL INFORMATION: Disk herniation, radiculopathy. SPECIMEN: Disc GROSS DESCRIPTION: The specimen container is labeled with the patient's name and designated spine . In formalin are multiple irregular rubbery and firm fragments of goss-red tissue measuring in aggregate 3 x 2.5 x 0.4 cm. The majority of tissue is wrapped and submitted in one cassette after decalcification. KARTHIKWA/RAULAN CPT: 14326 X1 72189 X1 MICHELLE PEREZ M.D. 04/15/2019 Electronically signed out by Page 1 of 1 [facility] Comment on above: Performed By: #### S UR #### [facility] [address] [place] [address] Type and Screen Capture 3 sc deisy crowder 04-10-2019 Type and Screen Capture 3 scrn cell PATIENT: MICAELA OSWALD LOC: LCOPS,ORPOOL,NON BILL# : [id number] : 1950 SEX: F ORDERED BY: DAVIN MERCEDES ORDERED : 04/10/2019 06:22 COLLECTED: 04/10/2019 07:21 ORDER : [id number] RECEIVED : 04/10/2019 07:21 --------- TEST NAME RESULT UNITS RANGES ABN FL ST ABORH Capture A POS F Antibody 3 Cell Scrn Captu NEG F -------- Normal [facility] Comment on above: Performed By: #### T S3C #### [facility] [address] [facility] [address] CARDIAC STRESS TESTon 2018 CARDIAC STRESS TEST [facility] [address] [place] [id number] CARDIAC STRESS TEST PATIENT NAME: DAREK MEJÍA : 1950 MED REC NO: [id number] ROOM: ACCOUNT NO: [id number] ADMIT DATE: 03/31/2019 PROVIDER: Marli Cox DO [...] function. MARLI COX DO #14:19:36 [id number] Doc#: [id number] CC: Normal [facility] Coding Summary.on 01-30-2019 Coding Summary. CODING DATE: FINAL [facility] STATUS: Home (Routine DC) PAYOR: Medicare ADMIT DX: REASON FOR VISIT DX: M54.2 Cervicalgia M25.512 Pain in left shoulder FINAL DX: PRINCIPAL: M50.30 Other cervical disc degeneration, unspecified cervical region SECONDARY: M50.20 Other cervical disc displacement, unspecified cervical region M54.12 Radiculopathy, cervical region M48.02 Spinal stenosis, cervical region Z79.899 Other long term care pharmacist (current) drug therapy PROCEDURES DOCTOR NAME DATE NOTE: The code number assigned matches the documented diagnosis and / or procedure in the patient's chart. However, the narrative phrase printed from the coding software may appear abbreviated, or result in slightly different terminology. Coded By: Linh Devlin CphT Date Saved: 01/30/2019 10:45 am [facility] Coding Summary.on 01-29-2019 Coding Summary. CODING DATE: FINAL [facility] STATUS: Home (Routine DC) PAYOR: Medicare APC DESCRIPTION 5442 Level 2 Nerve Injections ADMIT DX: REASON FOR VISIT DX: M54.12 Radiculopathy, cervical region FINAL DX: PRINCIPAL: M54.12 Radiculopathy, cervical region SECONDARY: F17.210 Nicotine dependence, cigarettes, uncomplicated Z79.82 lobsterman (current) use of aspirin Z95.1 Presence of aortocoronary bypass graft PYMT PROC APC STAT DESCRIPTION DOCTOR NAME DATE NOTE: The code number assigned matches the documented diagnosis and / or procedure in the patient's chart. However, the narrative phrase printed from the coding software may appear abbreviated, or result in slightly different terminology. Coded By: Maria Teresa Velasquez Date Saved: 01/29/2019 08:16 am [facility] Main OR Intraoperative Recor don 01-28-2019 Main OR Intraoperative Record IntraOp Document Type FTPM Summary Primary Physician: Cain Rowley MD Finalized Date/Time: 01/28/19 07:58:26 Pt. Name: DAREK MEJÍA Joby/Sex: 1950 Female Med Rec #: [id number] Physician: Amrik WADE, Cain Perla Financial #: [id number] Pt. Type: P Room/Bed: / Admit/Disch: 01/28/19 [...] Role Performed Anesthesiologist of Surgeon - Primary Drilling Foreman - Primary Record Time In 01/28/19 07:53:00 [...] Tamanna Sun RN, Aaron Donohue Role Performed Drilling Foreman - Primary Scrub - Other Turning Lathe Tender Time In 01/28/19 07:53:00 01/28/19 07:53:00 01/28/19 07:53:00 Time Out 01/28/19 08:00:00 01/28/19 08:00:00 01/28/19 08:00:00 Procedure CERVICAL EPIDURAL CERVICAL EPIDURAL CERVICAL EPIDURAL STEROID INJECTION(.) STEROID INJECTION(.) STEROID INJECTION(.) Comments orientee Last Modified By: [place] RNNettie RN, Sonja C Ward RN, Sonja C [...] and tissue Entry 1 Skin Integrity Intact, [place], Warm, and Skin Abnormality No Dry Outcomes [...] By: Nettie Guthrie RN 01/28/19 07:58 Normal [facility] Main OR Preoperative Recordo n 01-28-2019 Main OR Preoperative Record Holding Area Document Type FT Summary Primary Physician: Cain Rowley MD Finalized Date/Time: 01/28/19 07:17:16 Pt. Name: DAREK MEJÍA /Sex: 1950 Female Med Rec #: [id number] Physician: Cain Rowley MD Financial #: [id number] Pt. Type: P Room/Bed: / Admit/Disch: 01/28/19 [...] 07:14 Melina Harper RN 01/28/19 07:17 Normal [facility] Operative Reporton 9 Operative Report Patient: DAREK [...] 96 mmHg SpO2 94 % . Normal [facility] Comment on above: Result Comment: Elec tronically [...] January 17, 2019 10:38 EDT Encounter info: [id number], Gerry Hammond, Pain Management, 01/17/2019 - 01/17/2019 [...] tid., # 180 tab(s), Refills(s) 0, Pharmacy: [facility] Documented Medications Documented NIFEdipine 30 mg [...] list: All Problems Smoker / SNOMED CT 369650010 / Confirmed Added secondary to documentation in [...] of motion. Normal strength. Integumentary: Warm, Dry, [place]. Injection site well-healed Neurologic: Alert, Oriented. Psychiatric: [...] Electronically Co-Signed By: Amrik WADE, Cain Perla [facility] Comment on above: Result Comment: [...] tid., # 180 tab(s), Refills(s) 0, Pharmacy: [facility] Documented Medications Documented NIFEdipine 30 mg [...] list: All Problems Smoker / SNOMED CT 933367470 / Confirmed Added secondary to documentation in [...] of motion. Normal strength. Integumentary: Warm, Dry, [place]. Injection site well-healed Neurologic: Alert, Oriented. Psychiatric: [...] with any interval questions or concerns. Normal [facility] Comment on above: Result Comment: ERRO R - WRONG FOLDER Electronically Signed By: Marah Ferrell PA-C\.br\Date and Time Signed: 01/17/19 10:38 EDT\.br\Electronically Co-Signed By: Amrik WADE, Cain Perla Coding Summary.on 12-31-2018 Coding Summary. CODING DATE: 019 FINAL [facility] STATUS: Home (Routine DC) PAYOR: [...] Velasquez Date Saved: 12/31/2018 02:30 pm Normal [facility] Progress Note-Physicianon Progress Note-Physician Patient: DAREK MEJÍA [...] day(s), # 21 tab(s), Refills(s) 0, Pharmacy: [facility] gabapentin 300 mg Cap: See Instructions, increase dose as directed to 600 mg po tid., # 180 tab(s), Refills(s) 0, Pharmacy: [facility] Documented Medications Documented NIFEdipine 30 mg [...] list: All Problems Smoker / SNOMED CT 330930829 / Confirmed Added secondary to documentation in Social History. Histories Past Medical History: No active or resolved past medical history items have been selected or recorded., SMOKES TOBACCO Family History: No family history items have been selected or recorded. Procedure history: Mastectomy (5107925997). Hysterectomy (035321666). Cholecystectomy (41850709). CABG x 5 - Coronary artery bypass grafts x 5 ([id number]). Social History Social & Psychosocial Habits Alcohol [...] and perfusion.. Gastrointestinal: Benign, nontender.. Integumentary: Warm, [place]. Neurologic: PER PAIN CLINIC ASSESSMENT. Plan [place] [employer] Anesthesiologists (ASA) physical status classification: Class III. Anesthetic Preoperative Plan Anesthesia: Monitored anesthesia care. Anesthetic plan, risks, benefits, and alternatives discussed with the patient and/or family. Patient verbalized understanding. Informed consent was given. Communication: face to face with Pt educated on the importance of smoking cessation. [facility] Comment on above: Result Comment: Elec tronically Signed By: Stevie Linares Jr, DO\.fran\Date and Time Signed: 12/31/18 15:15 EDT Main OR Intraoperative Recor don 12-30-2018 Main OR Intraoperative Record IntraOp Document Type FTPM Summary Primary Physician: Cain Rowley MD Finalized Date/Time: 12/30/18 08:22:53 Pt. Name: DAREK MEJÍA.O.B./Sex: 1950 Female Med Rec #: [id number] Physician: Cain Rowley MD Financial #: [id number] Pt. Type: P Room/Bed: / Admit/Disch: 12/30/18 [...] Role Performed Anesthesiologist of Surgeon - Primary Drilling Foreman - Primary Record Time In 12/30/18 08:15:00 [...] Performed Scrub - Primary Scrub - Other Turning Lathe Tender Time In 12/30/18 08:15:00 12/30/18 08:15:00 12/30/18 [...] and tissue Entry 1 Skin Integrity Intact, [place], Warm, and Skin Abnormality No Dry Outcomes [...] By: Nettie Guthrie RN 12/30/18 08:22 Normal [facility] Main OR Preoperative Recordo n 12-30-2018 Main OR Preoperative Record Holding Area Document Type FT Summary Primary Physician: Cain Rowley MD Finalized Date/Time: 12/30/18 07:39:27 Pt. Name: DAREK MEJÍA /Sex: 1950 Female Med Rec #: [id number] Physician: Cain Rowley MD Financial #: [id number] Pt. Type: P Room/Bed: / Admit/Disch: 12/30/18 [...] By: Melina Harper RN 12/30/18 07:39 Normal [facility] Operative Reporton 9 Operative Report Patient: DAREK [...] 112 mmHg SpO2 98 % . Normal [facility] Comment on above: Result Comment: Elec tronically Signed By: Cain Rowley MD\.br\Date and Time Signed: 12/30/18 08:23 EDT Message - General Officeon 0 12-25-2018 [email or web address]* Office From: James Eaton ([facility]) To: Cain Rowley MD; Sent: 12/19/2018 14:37:15 EDT Subject: Rx Patient called and said that she had been prescribed Gabapentin per her last care plan. She said it makes her sleepy and weak. She asked if she would be able to take something different. From: Marah Ferrell PA-C To: [facility]; Sent: 12/20/2018 09:18:44 EDT Subject: RE: Rx DC GPN, we can try lyrica if insurance mitzi cover it. Or just proceed with injection only and see if that helps. Please let me know what she would like to try. From: Jeevan LiuFeed CrusherElysia Fitzgerald ([facility]) To: [facility]; Sent: 12/20/2018 10:01:06 EDT Subject: pt to call back. called patient, left a message requesting a return telephone. From: Jeevan Feed CrusherElysia Fitzgerald ([facility]) To: Marah Ferrell PA-C; Sent: 12/20/2018 13:34:17 EDT Subject: RE: pt to call back. Patient called back and stated that she will d/c the gabapentin and will just wait for injection before trying the lyrica Received a request for prior authorization for the Gabapentin from [facility] From: Elva Moreno RN ([facility]) To: [facility]; Sent: 12/23/2018 08:44:56 EDT Subject: Rx prior auth request Tried to call [facility] and they do not open until after 9 - will call to see if she picked this up (see notes below) and why we got this request. From: Elva Moreno RN ([facility]) To: Elva Moreno RN; Sent: 12/23/2018 10:51:16 EDT Subject: FW: Rx prior auth request Contacted [facility] and they confirm the patient filled this on the 17 of December - not sure why we got the request for Prior authoization, but since we will not be continuing this medication we will disregard the request. for PA. 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 [...] is reviewed. From: Marah Ferrell PA-C To: [facility]; Sent: 12/25/2018 11:05:18 EDT Subject: RE: Intractable pain injection scheduled Sunday12/30/18 I can send a medrol dose pack in if she would like to use until the injection From: Elva Moreno RN ([facility]) To: [facility]; Sent: 12/25/2018 11:11:14 EDT Subject: FW: Intractable pain injection scheduled Sunday12/30/18 Due Date/Time: 12/25/2018 13:00:00 EDT Left voice mail for patient to call the office From: Elva Moreno RN ([facility]) To: Marah Ferrell PA-C; Sent: 12/25/2018 11:14:17 EDT Subject: Dose Pack On hold pending signature Order:methylPREDNISolon e (Medrol Dosepack 4 mg Tab) 1 packet(s) Oral As Directed as directed on package labeling Qty: 21 tab(s) Duration: 6 day(s) Refills: 0 Substitutions Allowed Route To Pharmacy - [facility] Patient returned call and states she will give it a try . Approved Order:methylPREDNISolon e (Medrol Dosepack 4 mg Tab) 1 packet(s) Oral As Directed as directed on package labeling Qty: 21 tab(s) Duration: 6 day(s) Refills: 0 Substitutions Allowed Route To Pharmacy - [facility] Signed by Marah Ferrell PA-C 12/25/18 11:27:00 From: Marah Ferrell PA-C To: [facility]; Sent: 12/25/2018 11:27:52 EDT Subject: RE: Dose Pack sent From: Jeevan Feed CrusherLiaElysia ([facility]) To: [facility]; Sent: 12/25/2018 12:57:16 EDT Subject: RE: Dose Pack attempted to call patient, no answer and no voicemail From: Tisha ADARSHQuyenTriny ([facility]) To: [facility]; Sent: 12/25/2018 13:21:44 EDT Subject: RE: Dose Pack patient returned call I informed her prescription sent to pharmacy [facility] Consultation Noteon 12-25-19 19 Consultation Note HOSPITAL [...] to 600 mg three times per day. [place] Automated Prescription Reporting System report was reviewed and is consistent with the previous medications prescribed. The patient will follow up two weeks after the injection to assess response and call the clinic with any questions or concerns. The patient agrees with plan of care. Cain Rowley M.D. lkr Dictated: 12/17/2018 #[id number] Typed: 12/19/2018 #[id number] cc: Cain Rowley M.D. Kayleigh Gay M.D. Stas Olvera MD [facility] Comment on above: Result Comment: Elec tronically Signed By: Amrik WADE, Cain Perla\.br\Date and Time Signed: 12/24/18 13:15 EDT Message - General Officeon 0 12-23-2018 Message - General Office From: Sarah Laws To: [facility] Pain Development Intern; Sent: 12/17/2018 13:40:24 EDT Subject: [place]-Medicare [employer]-ELENA-12/17/18 From: Thais Nieto ([facility] Development Intern) To: [facility] Clerical Inbox; Sent: 12/23/2018 13:33:03 EDT Subject: 2nd call Arleen Submitted prior auth online through [employer]. Medicare [employer] approved auth #[id number] good 12/23/18 to 03/23/19. Called patient to schedule C6/7 MAUREEN no anesthesia Dx M54.12, patients number has been changed or disconnected called Ag on patients HIPAA no answer unable to leave a message. From: Thais Nieto ([facility] Clerical Inbox) To: [facility]; Sent: 12/23/2018 14:32:36 EDT Subject: RE: 2nd call Arleen Patient called back, scheduled procedure for 12/30/18, scheduled follow up for 01/17/19 at 10:10am. [facility] Coding Summary.on 12-20-2018 Coding Summary. CODING DATE: [facility] STATUS: Home (Routine DC) PAYOR: Medicare ADMIT DX: REASON FOR VISIT DX: M54.2 Cervicalgia FINAL DX: PRINCIPAL: M54.12 Radiculopathy, cervical region SECONDARY: M50.20 Other cervical disc displacement, unspecified cervical region M50.30 Other cervical disc degeneration, unspecified cervical region Z79.82 nursing home (current) use of aspirin Z79.1 lobsterman (current) use of non-steroidal anti-inflammatories (NSAID) PROCEDURES DOCTOR NAME DATE NOTE: The code number assigned matches the documented diagnosis and / or procedure in the patient's chart. However, the narrative phrase printed from the coding software may appear abbreviated, or result in slightly different terminology. Coded By: Linh Devlin CphT Date Saved: 12/20/2018 01:35 pm [facility] Coding Summary.on 12-03-2018 Coding Summary. CODING DATE: [facility] STATUS: Home (Routine DC) PAYOR: [...] Devlin CphT Date Saved: 12/03/2018 01:31 pm [facility] Consultation Noteon 12-04-19 Consultation Note [...] bypass surgery in July 2015 at the [facility] and she does smoke. REVIEW OF [...] biceps, triceps, brachial radialis. She has a Uhy's sign bilaterally. Fairly full nontender range of [...] injection. Stas Olvera MD gls Dictated: 11/26/2018 #[id number] Typed: 12/03/2018 #[id number] cc: Kayleigh Gay M.D. Stas Olvera MD [facility] Comment on above: Result Comment: Elec tronically Signed By: Wade WADE, Stas Napier\.br\Date and Time Signed: 12/03/18 13:16 EDT History and Physicalon 12-11 HIM IP Note OR Radiation Therapy Technician Normal [facility] OPERATIVE REPORTon 8 OPERATIVE REPORT [address] [address] OPERATIVE REPORTPATIENT NAME: DAREK MEJÍA : 8MED REC NO: [id number] ROOM:ACCOUNT NO: [id number] ADMIT DATE: 12/11/2017PROVIDER: Dustin McmahonDATE OF PROCEDURE: [...] and will be seen infollowup on 12/12/2017.DUSTIN PINEDOBSD: 12/11/2017 11:14:16 CD/[id number]_TJob#: [id number] Doc#: [id number]: Normal [facility] Op Noteon 12-11-2017 HIM IP Note OR Radiation Therapy Technician Normal [facility] History and Physicalon 10-23 HIM IP Note OR Radiation Therapy Technician Normal [facility] OPERATIVE REPORTon 8 OPERATIVE REPORT [id number] [place] [address] OPERATIVE REPORTPATIENT NAME: DAREK MEJÍA : 1950MED REC NO: [id number] ROOM:ACCOUNT NO: [id number] ADMIT DATE: 10/23/2017PROVIDER: Dustin McmahonDATE OF PROCEDURE: [...] days postoperatively.DUSTIN Ren DABBSD: 10/23/2017 11:29:16 CD/[id number]#: [id number] Doc#: [id number]: Normal [facility] Op Noteon 10-23-2017 HIM IP Note OR Radiation Therapy Technician [facility] Progress Noteon 10-23-2017 HIM IP Note OR Radiation Therapy Technician [facility] HIM IP Note OR Radiation Therapy Technician [facility] No Panel Information [facility] Encounters Encounter Date Encounter Type Care Provider Facility Start: 12-18-2023 End: 12-18-2023 ambulatory [facility] Start: 10-31-2023 End: 10-31-2023 ambulatory [facility] Start: 10-26-2023 Telephone encounter Mary Lou Clinton LOG RAFT WORKER [facility] Start: 10-23-2023 Orders Only Not In System Ref Prov [facility] Start: 10-11-2023 Orders Only Naomi Bautista RMA [facility] Comment on above: 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 Start: 07-20-2023 Evaluation and management of inpatient [facility] Start: 07-20-2023 Evaluation and management of inpatient [facility] Start: 07-20-2023 Evaluation and management of inpatient [facility] Start: 07-20-2023 Evaluation and management of inpatient [facility] Start: 07-19-2023 End: 07-22-2023 Evaluation and management of inpatient [facility] Start: 07-19-2023 End: 07-19-2023 ambulatory [facility] Start: 04-23-2023 End: 04-23-2023 ambulatory [facility] Start: 01-31-2023 End: 01-31-2023 ambulatory [facility] Start: 12-21-2022 End: 12-21-2022 ambulatory [facility] Start: 11-30-2022 End: 12-01-[address] KAYLEIGH GAY . 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 Mikal [facility] Start: 09-28-2017 End: 09-29-2017 Ambulatory DEFAULT PHYSICIAN Facility:[facility] Procedures Date Procedure Procedure Detail Performing Clinician Start: 10-10-2023 EGD / COLONOSCOPY Ruthie Napier Oneill OPERATIONS AND MAINTENANCE SPECIALIST-BELT POLISHER Work Phone: Start: 10-10-2023 Level i surg [...] 04-10-2019 INITIATE OXYGEN THER APY PROTOCOL OLGA PRAISI Start: 04-10-2019 TYPE AND SCREEN OLGA PARISI [...] DUSTIN SALOME Start: 10-23-2017 NURSING COMMUNICATION Clair DE OLIVEIRA SALOME Start: 10-23-2017 VITAL SIGNS DUSTIN CHRISTOPHER Start: 10-23-2017 POCT POTASSIUM DUSTIN MCMAHON Start: 10-23-2017 POTASSIUM (POC) DUSTIN MCMAHON Start: 10-23-2017 INITIATE OXYGEN THER APY PROTOCOL DUSTIN PINEDOBS Start: 10-23-2017 NOTIFY PHYSICIAN (SPECIFY) DUSTIN SALOME Start: 10-23-2017 VITAL SIGNS DUSTIN CHRISTOPHER Plan of Treatment Date Care Activity Detail Author Start: 01-08-2025 LIPID SCREEN LIPID SCREEN [facility] Start: 08-15-2024 Adult BMI Screening Adult BMI Screening [facility] Start: 08-15-2024 Tobacco Screening Tobacco Screening [facility] Start: 05-04-2023 COVID-19 Vaccine ( season) COVID-19 Vaccine () [facility] Start: 05-04-2023 Influenza vaccination Influenza Vaccine [facility] Start: 01-27-2023 DIABETES SCREEN DIABETES SCREEN [facility] Start: 09-03-2022 ADVANCE DIRECTIVE DISCUSSION ADVANCE DIRECTIVE DISCUSSION [facility] Start: 09-03-2022 DEPRESSION ASSESSMENT DEPRESSION ASSESSMENT [facility] Start: 05-04-2022 Influenza vaccination INFLUENZA (#1) [facility] Start: 09-13-2021 COVID-19 VACCINE (4 - Booster for Moderna series) COVID-19 VACCINE (4 - Booster for Moderna series) [facility] Start: 09-03-2021 ADVANCE DIRECTIVE DISCUSSION ADVANCE DIRECTIVE DISCUSSION [facility] Start: 09-03-2021 DEPRESSION ASSESSMENT DEPRESSION ASSESSMENT [facility] Start: 01-08-2021 Hepatitis B surface antibody level LDL CHOLESTEROL [facility] Start: 07-26-2016 PNEUMOCOCCAL: 65+ (2 - PCV) PNEUMOCOCCAL: 65+ (2 - PCV) [facility] Start: 2014 BONE DENSITY BONE DENSITY [facility] Start: 2014 Fall Risk Screening Fall Risk Screening [facility] Start: 1999 Administration of varicella zoster vaccine Zoster (Shingles) Vaccine (1 of 2) [facility] Start: 1999 SHINGRIX VACCINE (1 of 2) SHINGRIX VACCINE (1 of 2) [facility] Start: 1994 COLOGUARD (FIT-DNA) COLOGUARD (FIT-DNA) [facility] Start: 1994 Colonoscopy COLONOSCOPY [facility] Start: 1994 COLORECTAL CANCER SCREENING COLORECTAL CANCER SCREENING [facility] Start: [address] COLONOGRAPHY [facility] Start: 1994 FECAL OCCULT BLOOD FECAL OCCULT BLOOD [facility] Start: 1994 SIGMOIDOSCOPY SIGMOIDOSCOPY [facility] Start: 1989 Mammography MAMMOGRAM [facility] Start: 1979 Zoledronic acid therapy ALPHA-1 ANTITRYPSIN DEFICIENCY SCREENING [facility] Start: 1968 DTaP,Tdap and Td Vaccines (1 - Tdap) DTaP,Tdap and Td Vaccines (1 - Tdap) [facility] Start: 1968 Urine microalbumin profile DTAP,TDAP,TD (1 - Tdap) [facility] Start: 1967 Adult BMI Follow Up Plan Adult BMI Follow Up Plan [facility] Start: 1967 ANNUAL PCP TEAM CHRONIC DISEASE VISIT ANNUAL PCP TEAM CHRONIC DISEASE VISIT [facility] Start: 1967 BP CONTROLLED (<130/80) BP CONTROLLED (<130/80) [facility] Start: 1967 HEPATITIS C SCREENING HEPATITIS C SCREENING [facility] Start: 1967 SPIROMETRY SPIROMETRY [facility] Start: 1961 Depression Screening Depression Screening [facility] Start: 1950 Medicare Annual Wellness Visit Medicare Annual Wellness Visit [facility] Start: 1950 Tobacco Counseling Tobacco Counseling [facility] Immunizations Immunization Date Immunization Notes Care Provider Fa miguel 06-07-2022 unknown vaccine or immune globulin [facility] Work Phone: [facility] 05-25-2021 influenza, injectable,quadrivalent , preservative free, pediatric [facility] Work Phone: [facility] 05-25-2021 influenza virus vaccine, unspecified formulation Naomi Bautista [facility] 09-18-2017 pneumococcal conjuga te vaccine, 13 valent [facility] Work Phone: [facility] 06-03-2017 influenza, seasonal, injectable [facility] Work Phone: [facility] 07-07-2016 influenza virus vaccine, unspecified formulation [facility] Work Phone: [facility] 06-14-2016 influenza, injectabl e, quadrivalent, preservative free [facility] Work Phone: [facility] 07-26-2015 influenza, high dose seasonal, preservative-free Aleksandar Castillo MD Work Phone: [facility] 07-26-2015 pneumococcal polysaccharide vaccine, 23 valent Aleksandar Castillo MD Work Phone: [facility] Payers Date Payer Category Payer Medicare [id number] 1960 Medicare [id number] 1960 Medicare [id number] 1950 Unknown [id number] 2.16.8 [id number] 1950 Unknown [id number] 2.16.8 [id number] 1950 Unknown [id number] 2.16.84 [id number] 1950 Unknown [id number] 2.16.84 [id number] 1950 Unknown [id number] 2.16.84 [id number] 1950 Unknown [id number] 2.16.84 [id number] 1949 Unknown [id number] 2.16.84 [id number] 1949 Unknown [id number] 2.16.84 [id number] 1949 Unknown [id number] 2.16.84 [id number] 1950 Unknown [id number] 2.16.84 [id number] Unknown Social History Date Type Detail Facility Start: 03-22-2021 End: 08-15-2023 Tobacco smoking status NHIS Smokes tobacco daily [facility] Start: 09-03-1962 History of tobacco use Cigarette Smo ker [facility] Start: 10-14-2020 End: 03-22-2021 Cigarettes smoked current (pack per day) - Reported 0.5 [facility] Start: 03-22-2021 End: 08-15-2023 Tobacco use and exposure Smokeless tobacco non-user [facility] Start: 08-15-2022 End: 08-15-2023 Alcohol intake Current drinker of alcohol (finding) [facility] Start: 03-22-2021 Alcohol Comment rare/social [facility] Start: 1950 Sex Assigned At Not on file C [facility] Start: 10-14-2020 End: 08-15-2023 Tobacco use panel [facility] Start: 04-15-2018 Alcohol Comment [facility] Procedure Code Equipment Code Equipment Origin al Text Equipment Identifier Dates Graft Gelweave 3 0mm Straight Gelatin Polyester Woven 30cm Cardiovascular - [id number] Start: 01-10-2020 Ryder Cv 4x.5in Thk1.65mm Ptfe - [id number] Start: 07-20-2015 Ryder Thk1.65mm P tfe [id number] Cardiovascular Patch Sterile - [id number] Start: 01-10-2020 Lens Iol 0d +21. 5 Cary Uv Abs - [id number] Start: 04-13-2021 Comment on above: Description: -0.47 Patch Thk.5mm Esteban vine Pericardial [id number] Cardiovascular Resilience Durable - [id number] Start: 01-10-2020 Valve Aort 23mm Crp-Ed Thfx - [id number] Start: 01-10-2020 Clinical Notes 01-09-2020 to 12-18-2023 Telephone Encounter - Mary Lou Clinton [facility] - 10/26/2023 9:54 AM ESTTelephone Encounter - Mary Lou Clinton [facility] - 10/26/2023 9:54 AM XIOMARA Baptiste - [...] Intimate Partner Violence: Not At Risk (07/19/2023) [place] Safety & Environment Fear of Current or [...] SL tablet Sublingu (more content not included)... [facility] 10-31-2023 Note [facility] Cardiology Clinic Note Chief Complaint: Patient [...] does not a (more content not included)... [facility] 10-26-2023 Miscellaneous Notes ----- Message from Rylan [...] Thanks, Dr. Hernandez [facility] Telephone encounter Note ----- Message from [...] up p.r.n. with me. Thanks, Dr. Hernandez [facility] 08-01-2023 Note [facility] Cardiology Clinic Note Chief Complaint: Patient [...] Severe obstructive karley (more content not included)... [facility] 07-22-2023 Note 07/22/23 1106 Home Oxygen Therapy Evaluation Pulse Oximetry on room air at Rest 87 Pulse Ox on O2 with nasal cannula while at rest 95 (placed patient on 2lpm via nasal cannula) Patient Qualification for home oxygen Qualifies $ Pulse Oximetry Single [facility] 07-22-2023 Note Hospital Medicine Discharge Summary Final Discharge Diagnosis: Newly diagnosed Atrial fibrillation, CHADVASc of 5 s/p AMITA Cardioversion Post cardioversion bradycardia Severe Bioprosthetic Aortic valve stenosis Admission Diagnosis: Atrial fibrillation ([facility]) [I48.91] Hospital course: Darek Mejía is a [...] versus TAVR procedure. Dear Dr. Deidra MD, [facility] is advised to follow up with you [...] 100-62.5-25 mcg blister with device Generic drug: akkfuzuigkm-jvuszppxo-pkadqwnj STOP taking these medications carvedilol 12.5 mg tablet Commonly known as: Coreg Where to Get Your Medications These medications were sent to [facility]/pharm[id number] - [place], [place] - [address] OF [address], [facility] [address] apixaban 5 mg tablet Darek is allergic [...] rales or rh (more content not included)... [facility] 07-22-2023 Note Attestation signed by Kvng [...] CABG x5 and revision CABG in 2020 (HC-LAD, rSVG- Diagonal, SVG-OM, SVG-PDA-PLV), HFpEF, valvular disease [...] 124 QT Interval 462 QTC CALCULATION(BAZETT) 412 R-Klemme -64 T Wave Klemme -82 Impression Wide QRS rhythm Left anterior [...] CABG x5 with revesion in 2020 at [facility] (CH-LAD, rSVG- Diagonal, SVG-OM, SVG-PDA-PLV) Aortic [...] Juancarlos Egan MD PGY-2 Internal Medicine Resident [facility] 07-21-2023 Note Physical Therapy Physical Therapy [...] artery disease involving coronary bypass graft of [place] heart with angina pectoris ([facility]/HCC) Dyslipidemia Encounter for support and coordination of transition of care Hx of CABG Hypervolemia Ischemic heart disease, chronic Macular hole of right eye Mild left ventricular systolic dysfunction Moderate protein-calorie malnutrition ([facility]/HCC) Nonrheumatic aortic valve insufficiency Pleural effusion Benign hypertensive cardiomyopathy with heart failure ([facility]/HCC) Smoking addiction Bradycardia CHF (congestive heart failure) ([facility]/HCC) GERD (gastroesophageal reflux disease) Other emphysema ([facility]/HCC) Atrial fibrillation ([facility]) Acute heart failure with preserved ejection fraction ([facility]) Nonrheumatic aortic valve stenosis Past Medical History: [...] Level of Function Prior Function Level of [place]: Independent with ADLs and functional transfers, Independent [...] to walk i (more content not included)... [facility] 07-21-2023 Note Hospital Medicine Daily Progress Note - 07/21/2023 11:41 AM; Room: [address] [place] [address] Admission: 07/19/2023 8:09 PM; Length of stay: 2 days THE HOSPITALIST TEAM PREFERS TO USE [employer] FOR COMMUNICATION 7AM-7PM. IF I DO NOT RESPOND WITHIN 15 MINUTES, PLEASE PAGE ME/CALL THROUGH THE PACK CHANGER. FROM 7PM-7AM, PLEASE PAGE [phone](COVR) Code Status: Full Code Barriers to Discharge: [...] Active Inpatient Problems Principal Problem: Atrial fibrillation ([facility]) Active Problems: Acute heart failure with preserved ejection fraction ([facility]) Nonrheumatic aortic valve stenosis Assessment and Plan Severe Bioprosthetic Aortic valve stenosis Newly diagnosed Atrial fibrillation, CHADVASc = 5 CAD s/p CABG x5 with revesion in 2019 at [facility] (CH-LAD, rSVG- Diagonal, SVG-OM, SVG-PDA-PLV) Aortic [...] FREET4 1.14 07/21/2023 No results found for: [id number], IRON, TIBC, C3, C4, MIRIAM, CANCA, ASO, PSA, CEA, CA125, CA199, AFP, CA153 Imaging ECG 12 lead Wide QRS rhythm Left anterior fascicular block Left ventricular hypertrophy with QRS widening and repolarization abnormality ( [place] product ) Cannot rule out Septal infarct , age undetermined Abnormal ECG When compared with ECG of 20-JUL-2023 12:58, Wide QRS rhythm has replaced Sinus rhythm Discharge Planning Discharge Planning Has discharge transport been arranged?: Yes OT Discharge Recommendations: Home Signed Ulysses Fuller (more content not included)... [facility] 07-21-2023 Note Attestation signed by Kvng [...] 124 QT Interval 462 QTC CALCULATION(BAZETT) 412 R-Klemme -64 T Wave Klemme -82 Impression Wide QRS rhythm Left anterior fascicular block Left ventricular hypertrophy with QRS widening and repolarization abnormality ( [place] product ) Cannot rule out Septal infarct [...] with QRS widening and repolarization abnormality ( [place] product ) Cannot rule out Septal infarct [...] CABG x5 with revesion in 2020 at [facility] (CH-LAD, rSVG- Diagonal, SVG-OM, SVG-PDA-PLV) Aortic [...] bradycardia with amiodar (more content not included)... [facility] 07-21-2023 Note Called re pt with br adycardia and frequent pvcs Recent labs reviewed will check free T4/T3 since tsh 0.06 consider readjusting doses check troponins hold coreg ekg staff to notify cardiology serum calcium high normal check vit d and repeat cmp [facility] 07-20-2023 Note Procedure Report PROCEDURE: synchronized cardioversion INDICATION: atrial fibrillation, persistent PACK CHANGER: Gallo Knowles M.D. ANESTHESIA: conscious sedation TECHNIQUE: [...] sinus rhythm. There were no apparent complications. [facility] 07-20-2023 Note Hospital Medicine Daily Progress Note - 07/20/2023 12:37 PM; Room: [facility] Admission: 07/19/2023 8:09 PM; Length of stay: 1 days THE HOSPITALIST TEAM PREFERS TO USE [employer] CHAT FOR COMMUNICATION 7AM-7PM. IF I DO NOT RESPOND WITHIN 15 MINUTES, PLEASE PAGE ME/CALL THROUGH THE PACK CHANGER. FROM 7PM-7AM, PLEASE PAGE [phone](COVR) Code Status: Full Code Barriers to Discharge: [...] Active Inpatient Problems Principal Problem: Atrial fibrillation ([facility]) Active Problems: Acute heart failure with preserved ejection fraction (CMS/HCC) Nonrheumatic aortic valve stenosis Assessment and Plan Severe Bioprosthetic Aortic valve stenosis Newly diagnosed Atrial fibrillation, CHADVASc = 5 CAD s/p CABG x5 with revesion in 2020 at [facility] (CH-LAD, rSVG- Diagonal, SVG-OM, SVG-PDA-PLV) Aortic [...] FREET4 1.31 07/19/2023 No results found for: [id number], IRON, TIBC, C3, C4, MIRIAM, CANCA, ASO, PSA, CEA, CA125, CA199, AFP, CA153 Imaging ECG 12 lead Atrial fibrillation Left axis deviation Left ventricular hypertrophy with QRS widening and repolarization abnormality ( [place] product ) Cannot rule out Anteroseptal infarct [...] in the epigastric (more content not included)... [facility] 07-20-2023 Note Clinical Nutrition A ssessment [...] based on: actual body weight Calorie needs: 1347-8151 kcals/day based on Equation: 25-30 kcal/kg Protein [...] with questions and contact the dietitian via [employer] chat 8A-4P Sunday-Sunday. Or call the dietitian's office at extension [phone]. For weekends/holidays, the dietitian's can be reached by paging [phone] from 9A-3P. Unable to be reached via [employer] chat on Sunday & s.) [facility] 07-20-2023 Note Occupational Therapy Occupational Therapy [...] artery disease involving coronary bypass graft of [place] heart with angina pectoris (CMS/HCC) Dyslipidemia Encounter [...] Level of Function Prior Function Level of [place]: Independent with ADLs and functional transfers, Independent [...] Eating meals?: None (Independent) Total Score OT [facility]: 21 Assessment/Plan OT Assessment OT Impairments: Decreased ADL status, Decreased endurance, Decreased functional mobility OT Assessment/DIVER HELPER Summary: (needs skilled OT for generalized weakness and fatigue) Prognosis: Good Evaluation/Treatment Tolerance: Patient limited by fatigue Medical Staff Made Aware: Yes OT Education/Comments: (ws/ec/pacing , ae/dme that may improve endurance for adls at home , all with good verbal return) Plan Level of assist: 1 assist Treatment Interventions: ADL retraining, Fu (more content not included)... [facility] 07-20-2023 Note Hospital Medicine History and Physical 07/19/2023 10:58 PM THE HOSPITALIST TEAM PREFERS TO USE [employer] CHAT FOR COMMUNICATION 7AM-7PM. IF I DO NOT RESPOND WITHIN 15 MINUTES, PLEASE PAGE ME/CALL THROUGH THE PACK CHANGER. FROM 7PM-7AM, PLEASE PAGE [phone](COVR) Chief Complaint No chief complaint on file. History of Present Illness Darek Mejía is an 73 y.o. female admitted from home per recommendation by her cardiovascular rn who saw her in the office and [...] Problem List Diagnosis Date Noted Atrial fibrillation ([facility]) 07/19/2023 GERD (gastroesophageal reflux disease) 10/30/2022 Other emphysema ([facility]) 10/30/2022 Combined forms of age-related cataract of both eyes 04/13/2021 Pleural effusion 01/19/2020 Encounter for support and coordination of transition of care 01/15/2020 Moderate protein-calorie malnutrition ([facility]) 01/11/2020 Hx of CABG 01/10/2020 Nonrheumatic aortic valve insufficiency 01/09/2020 Dyslipidemia 03/25/2019 Macular hole of right eye 10/23/2017 Ischemic heart disease, chronic 08/24/2015 Chronic systolic heart failure ([facility]) 07/24/2015 CHF (congestive heart failure) ([facility]) 07/24/2015 Hypervolemia 07/23/2015 Atelectasis 07/21/2015 Coronary artery disease involving coronary bypass graft of [place] heart with angina pectoris ([facility]) 07/19/2015 Mild left ventricular systolic dysfunction 06/22/2015 Benign hypertensive cardiomyopathy with heart failure ([facility]) 06/22/2015 Smoking addiction 06/22/2015 Bradycardia 08/11/2022 Assessment [...] ordered as approp (more content not included)... [facility] 07-19-2023 Note [facility] Cardiology Clinic Note Chief Complaint: Patient [...] motion with ejection (more content not included)... [facility] 04-23-2023 Note [facility] Cardiology Clinic Note Chief Complaint: Patient [...] of ventricular bigeminy. (more content not included)... [facility] 01-31-2023 Note Continue GDMT- ASA, lipitor, coreg continue risk factor modifications- heart healthy diet, regular exercise as tolerated and continue all medications. [facility] 01-31-2023 Note [facility] II- currently e uvolemic without excaerbation Continue GDMT- ASA, lipitor, coreg, lisinopril and aldatone Diuretic therapy- lasix every other day Monitor daily weights, I&O, fluid restriction 1.5-2L/day, renal function and electrolytes- [facility] 01-31-2023 Note Stable- continue all meds [facility] 01-31-2023 Note Review of B/P log an d her HTN is much better controlled with addition of aldactone. K+ level remains normal and renal function is stable for her. Denied lightheadedness/dizziness Continue aldactone, lisinopril, coreg and lasix QOD [facility] 01-31-2023 Note [facility] CARDIOLOGY PROGR ESS [...] artery disease involving coronary bypass graft of [place] heart with angina pectoris (CMS/HCC) Continue GDMT- ASA, lipitor, coreg continue risk factor modifications- heart healthy diet, regular exercise as tolerated and continue all medications. RTC 3 months with repeat BMP in 1 week [facility] 05-31-2023 Note Patient here for 2 m o [...] All other systems reviewed and are negative. [facility] 01-11-2023 Note Review of b/p log sh ows HTN remains uncontrolled at home- will add aldactone to regime and repeat BMP in 1 week to assess renal function and potassium level Have pt RTC in 2-4 weeks- message sent to A Saulo SALGADO. [facility] 01-11-2023 Note Benign hypertensive cardiomyopathy with [...] Release to Patient Answer: Immediately Hawa Rush GEOPHYSICAL COMPUTER Division of Cardiology, [facility]- [phone] Pager- [phone] Email- [email or web address] 12-21-2022 Note [facility] II- currently e uvolemic without exacerbation Continue GDMT- ASA, lipitor, coreg, lisinopril Diuretic therapy- lasix qod Monitor daily weights, I&O, fluid restriction 1.5-2L/day, renal function and electrolytes- [facility] 12-21-2022 Note Coronary artery dise ase is stable Continue GDMT continue risk factor modifications- heart healthy diet, regular exercise as tolerated and continue all medications. [facility] 12-21-2022 Note stable: [facility] 12-21-2022 Note Currently stable wit hout any concerning symptoms [facility] 12-21-2022 Note Reviewed echocardiog ashwini with pt from 08/2022 No concerning symptoms currently Will repeat echo at 1 year- or Aug 2023 [facility] 12-21-2022 Note Hypertension is elev ated in office each time she is here most likely r/t white coat syndrome. States b/p typically at home is 130's/70 with occasional 140/80 Continue all meds [facility] 12-21-2022 Note Continue lipitor 80 mg [facility] 12-21-2022 Note [facility] CARDIOLOGY PROGR ESS [...] at 1 yea (more content not included)... [facility] 12-21-2022 Note Patient here for 4 m [...] All other systems reviewed and are negative. [facility] 10-30-2022 Note HNO ID: [id number] Author: XIOMARA Farmer Service: ? Author Type: Prop Cutter Type: Progress Notes Filed: 10/30/2022 3:28 PM Note Text: CONFIRM AIM PLANO LEFT EYE. XIOMARA Farmer [facility] 10-30-2022 History of Present illness Narrative CONFIRM AIM PLANO LEFT EYE. XIOMARA Farmer documented in this encounter [facility] 10-18-2022 Miscellaneous Notes Called and spoke [...] 2022 1:18 PM documented in this encounter [facility] 08-15-2022 Note HNO ID: [id number] Author: Aleksandar Wilson V, MD Service: ? [...] and surgery - Comanage with Dr Mccollum; [facility] POD #1 Cataract Presurgical Documentation Cataract: [...] patient was offered a surgery/procedure at a [facility] facility. The surgeon/proceduralist and patient have [...] patient was offered a surgery/procedure at a [facility] facility. The surgeon/proceduralist and patient have [...] form. -F/U [address] Mccollum ([facility]) The documentation recorded by the scribe accurately reflects the service I personally performed and the decisions made by me. I have confirmed and edited as necessary the relevant ophthalmic history, ROS, and the exam findings as obtained by others. I have seen and examined Darek Mejía. I also have reviewed and agree with the ass (more content not included)... [facility] 08-15-2022 Note HNO ID: [id number] Author: Jean-Claude Miles, LAWANDA Service: ? Author Type: ANIMATION DIRECTOR Type: Progress Notes Filed: 08/15/2022 3:51 PM [...] Miles, OD August 15, 2022 3:07 PM [facility] 08-15-2022 History of Present illness Narrative [...] and surgery - Comanage with Dr Mccollum; [facility] POD #1 Cataract Presurgical Documentation Cataract: [...] patient was offered a surgery/procedure at a [facility] facility. The surgeon/proceduralist and patient have [...] patient was offered a surgery/procedure at a [facility] facility. The surgeon/proceduralist and patient have [...] form. -F/U [address] Mccollum ([facility]) The documentation recorded by the scribe accurately reflects the service I personally performed and the decisions made by me. I have confirmed and edited as necessary the relevant ophthalmic history, ROS, and the exam findings as obtained by others. I have seen and examined aDrek Mejía. I also have reviewed and agree [...] all of its relevant components. Jean-Claude Miles, LAWANDA August 15, 2022 3:07 PM documented in this encounter [facility] 01-09-2020 History of Past i llness [...] Dental: N/A PFT's: N/A ( per CTS equipment scheduler - Per Dr. Bernal okay to [...] of this encounter (statuses as of 08/15/2022) [facility]05-08-2020 History of Past illness Narrative* Problem [...] Dental: N/A PFT's: N/A ( per CTS equipment scheduler - Per Dr. Bernal okangelica to proceed without PFT. Patient will be [...] of this encounter (statuses as of 08/16/2022) [facility] History of Past illness Narrative* Problem [...] Dental: N/A PFT's: N/A ( per CTS equipment scheduler - Per Dr. Bernal okay to [...] of this encounter (statuses as of 10/18/2022) [facility] History of Past illness Narrative* Problem [...] Dental: N/A PFT's: N/A ( per CTS equipment scheduler - Per Dr. Bernal okay to [...] of this encounter (statuses as of 10/31/2022) [facility] Diagnosis PCO (posterior capsular opacification), right- Primary After-cataract, unspecified Pseudophakia, right eye Lens replaced by other means Combined forms of age-related cataract of left eye Other and combined forms of senile cataract Full thickness macular hole, right [facility] Diagnosis Combined forms of age-related cataract of left eye- Primary Other and combined forms of senile cataract [facility] Diagnosis Combined forms of age-related cataract of left eye- Primary Other and combined forms of senile cataract Combined forms of age-related cataract of left eye Other and combined forms of senile cataract [facility] Diagnosis 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 Family history of colon cancer Family history of malignant neoplasm of gastrointestinal tract [facility] filedocumented in this [facility] filedocumented in this encounter [facility] Summary Purpose Family History No Family History Records FoundNo Family History Records FoundNo Family History Records FoundNo Family History Records FoundNo Family History Records FoundNo Family History Records FoundNo Family History Records Found Advance Directives No Advanced Directives Records FoundDocuments on File Type Date Recorded Patient Repeat Chief Expl anation Advance Directive(s) 01/16/2020 9:56 PM [...] list: All Problems Smoker / SNOMED CT [id number] / Confirmed Added secondary to documentation in [...] section and content) DATE CREATED AUTHOR 02/21/2018 [facility] DATE CREATED AUTHOR AUTHOR'S ORGANIZ ATION 02/25/2018 [facility] DATE CREATED AUTHOR AUTHOR'S ORGANIZ ATION 04/19/2019 [facility] DATE CREATED AUTHOR AUTHOR'S ORGANIZ ATION 08/22/2019 [facility] DATE CREATED AUTHOR AUTHOR'S ORGANIZ ATION 11/02/2022 [facility] DATE CREATED AUTHOR AUTHOR'S ORGANIZ ATION 12/09/2022 [facility] DATE CREATED AUTHOR AUTHOR'S ORGANIZ ATION 12/22/2023 [facility] Source Comments (unrecognize d section and content) In the event this informatio n is protected by the Federal Confidentiality of Alcohol and Drug Abuse Patient Records regulations: The Federal rules restrict any use of the information to criminally investigate or prosecute any alcohol or drug abuse patient.[facility] event this information is protected by the Federal Confidentiality of Alcohol and Drug Abuse Patient Records regulations: The Federal rules restrict any use of the information to criminally investigate or prosecute any alcohol or drug abuse patient.[facility] the event this information is protected by the Federal Confidentiality of Alcohol and Drug Abuse Patient Records regulations: The Federal rules restrict any use of the information to criminally investigate or prosecute any alcohol or drug abuse patient.[facility] the event this information is protected by the Federal Confidentiality of Alcohol and Drug Abuse Patient Records regulations: The Federal rules restrict any use of the information to criminally investigate or prosecute any alcohol or drug abuse patient.[facility] Reason for Visit (unrecogniz ed section and content) Reason Comments Cataract Evaluation Left eye Posterior Capsule Opacification Evaluati on Right eye Specialty Diagnoses / Procedures Referred By Contxenia t Referred To Contact OPHTHALMOLOGY Diagnoses Combined forms of age-related cataract, bilateral Laser Yag Procedures POST-CATARACT LASER SURGERY Darian Coy OD [address] [place] [address] [facility] Hermelinda Dominguez [place] [address] Referral ID Status Reason Start Date Expiration Date Visits Re quested Visits Authorized [id number] Closed 03/21/2022 09/27/2022 1 1 Reason Comments Appointment Reason Comments Pre-Op Exam Care Teams (unrecognized sec tion and content) Liquid Loader Relationship Specialty Start Date End Date Kayleigh Gay MD PCP - General Family Medicine 06/17/15 Kayleigh Gay MD Family Medicine 06/17/15 Liquid Loader Relationship Specialty Start Date End Date Kayleigh Gay MD PCP - General Family Medicine 06/17/15 Kayleigh Gay MD Family Medicine 06/17/15 Liquid Loader Relationship Specialty Start Date End Date Kayleigh Gay MD PCP - General Family Medicine 06/17/15 Kayleigh Gay MD Family Medicine 06/17/15 Liquid Loader Relationship Specialty Start Date End Date Kayleigh Gay MD PCP - General Family Medicine 06/17/15 Kayleigh Gay MD Family Medicine 06/17/15 Liquid Loader Relationship Specialty Start Date End Date Kayleigh Gay MD [address] [place] [address] PCP - General 04/15/18 Liquid Loader Relationship Specialty Start Date End Date Kayleigh Gay MD [address] [place] [address] PCP - General 04/15/18 FOR RECORDS PERTAINING [...] BE BASED ON THE PRIMARY CLINICAL RECORDS. [facility] provides no warranty or guarantee of the accuracy or completeness of information in this document.
--- NOTE | 2024-01-30 11:15 | CA_ITS ---
Patient Name: ADREK HINOJOSA MR#: [id number] : 1950 Exam Date: 01/30/2024 Ordering Doctor: WARD THOMPSON ECHOCARDIOGRAM REPORT PROCEDURE: CA ECHO DOPPLER COMPLETE INDICATIONS: Heart failure with reduced EF COMPARISON: None. DESCRIPTION: COMPLETE ECHOCARDIOGRAM Real-time transthoracic echocardiography with 2D, M-mode, spectral and color flow Doppler performed. QUALITY: Technical quality was good. LEFT VENTRICLE: Normal chamber size. Moderate concentric left ventricular hypertrophy. LV EF: Global left ventricular systolic function is mildly decreased. Visual estimation of left ventricular ejection fraction is 40-45%. Abnormal septal motion; this may be related to bundle branch block. DIASTOLIC: Not adequately assessed due to heart rhythm. ATRIAL SEPTUM: Inadequately seen. LEFT ATRIUM: Severe dilatation. RIGHT ATRIUM: Mild dilatation. RIGHT VENTRICLE: Mild dilatation. Normal right ventricular systolic function. TRICUSPID VALVE: Normal mobility and thickness. Moderate regurgitation. Moderate Pulmonary hypertension. RVSP 59mmHg MITRAL VALVE: Mildly thickened with normal mobility. No evidence of mitral valve stenosis. Mitral annular calcification. Mild to moderate mitral regurgitation. AORTIC VALVE: Bio-Prosthetic valve appears well seated in the aortic position with abnormally elevated Doppler flow. Valve is not well seen. LVOT pulse wave Doppler and hence DVI is erroneous. No aortic regurgitation. AORTIC ROOT: Normal diameter and appearance. PULMONIC VALVE: Normal thickness and mobility. No stenosis. Mild regurgitation. PERICARDIUM: No evidence of pericardial effusion. IVC: Mild dilatation. measuring 2.2cm with collapse on inspiration. CONCLUSION: 1. Global left ventricular systolic function is mildly reduced; visually estimated ejection fraction is 40 to 45% 2. Right ventricle is mildly dilated with normal systolic function 3. Biatrial enlargement 4. Moderately increased left ventricular wall thickness 5. Moderate tricuspid regurgitation 6. Moderately elevated right ventricular systolic pressure; RVSP 59 mmHg 7. Mild to moderate valve regurgitation 8. A bioprosthetic aortic valve is seen with elevated Doppler flows; the valve is poorly seen 9. Mild pulmonic regurgitation Adult Echocardiography Procedure Report Left Ventricle LVEDD (3.7 - 5.6 cm): 4.80 cm LVESD (2.2 - 4.0 cm): 3.71 cm LVIVS thickness (0.6 - 1.2 cm): 1.42 cm LVPW thickness (0.5 - 1.0 cm): 1.36 cm e': 0.11 m/s E - e': 9.31 LVOT Max Gradient: 1.51 mm[Hg] LVOT Area (cm2): 0.61 m/s Peak Velocity (LVOT): 0.61 m/s Mean Velocity (LVOT): 0.43 m/s LVOT Diameter 2.21 cm Left Ventricular Ejection Fraction: 46.06 % Left Atrium LA Volume Index (2D A2C): 98.75 ml/m2 Left Atrium Systolic Dimension: 6.12 cm Mitral Valve MV E to A Ratio: 104.41 Mitral Valve A-Wave Peak Velocity: 0.01 m/s Mitral Valve E-Wave Peak Velocity: 1.05 m/s Right Ventricle RV Internal Diastolic Dimension: 4.40 cm Aorta AO Root Diam: 3.73 cm Ascending Ao Diam: 3.19 cm Aortic Valve AoV Area (Peak Nathaniel): 0.83 cm2, 0.87 cm2 AoV Area (VTI): 0.93 cm2, 0.92 cm2 Peak Velocity(Antegrade Flow): 2.70 m/s, 2.97 m/s, 2.81 m/s, 2.86 m/s Peak Gradient(Antegrade Flow): 29.25 mm[Hg], 35.36 mm[Hg], 31.50 mm[Hg], 32.80 mm[Hg] Mean Velocity(Antegrade Flow): 2.17 m/s, 2.10 m/s, 2.06 m/s, 2.04 m/s Mean Gradient(Antegrade Flow): 20.08 mm[Hg], 19.28 mm[Hg], 19.12 mm[Hg], 19.05 mm[Hg] Velocity Time Integral: 63.74 cm, 67.82 cm, 58.75 cm, 61.75 cm Tricuspid Valve Peak Velocity (Regurgitant Flow): 3.58 m/s, 2.68 m/s, 2.93 m/s Pulmonic Valve Peak Velocity: 1.14 m/s Peak Gradient: 2.88 mm[Hg], 8.18 mm[Hg] Right Atrium Right Atrium Systolic Pressure: 71.35 ml, 71.35 ml Dictated by: Opal Carvalho M.D. on 01/30/2024 at 16:18 Approved by: Opal Carvalho M.D. on 01/30/2024 at 16:26
== END 2024-01-30 10:04 | disposition home or self-care (01) ==
LOC: CARD 10:03
PROVIDERS: PCP Family Medicine; Visit Provider Internal Medicine Cardiovascular Disease
DX: I50.22 Chronic systolic (congestive) heart failure (principal)
CPT/HCPCS: 93306; 93356

== ENCOUNTER 2024-08-07 15:29 | Emergency (ER) | payer MEDICARE, SELFPAY ==
[2024-08-07 16:06] VITALS: BP 184/110; PULSE 97; TEMP 36.9; O2SAT 96; BMI 19.6
--- NOTE | 2024-08-07 16:08 | XR_ITS ---
The [address] [address] Patient Name: DAREK HINOJOSA MRN: [id number] date: 1950 Sex: F Assigned Patient Location: ED.MAIN Current Patient Location: ER Accession/Order Number: [id number] Exam Date: 08/07/2024 16:28 Report Date: 08/07/2024 17:29 At the request of: WICHO BOONE Procedure: XR shoulder RT min 2V EXAMINATION: XR shoulder RT min 2V, , 08/07/2024 4:28 PM EST INDICATION: fall HISTORY: Ordering Provider Reason for Exam: fall Technologist Note: Additional: COMPARISON: None. TECHNIQUE: Right shoulder x-ray: 3 view(s). FINDINGS: Acute comminuted fracture of the right humeral head/neck is seen with avulsion of the greater tuberosity of the right humerus. Additionally, the right humeral head is seen positioned anterior and medial to the right glenoid, suggestive of subluxation versus anterior shoulder dislocation. The right acromioclavicular joint appears intact and normally aligned. XR/XR shoulder RT min 2V IMPRESSION: Acute comminuted fracture of the right humeral head/neck is seen with avulsion of the greater tuberosity of the right humerus. Additionally, the right humeral head is seen positioned anterior and medial to the right glenoid, suggestive of subluxation versus anterior shoulder dislocation. Electronically authenticated by: ZHOU JAY Date: 08/07/2024 17:29
--- NOTE | 2024-08-07 16:10 | ED_ITS ---
HPI HPI - Extremity Injury (Upper) General Chief Complaint: Extremity Injury, Upper Stated Complaint: shoulder injury Time Seen by Provider: 08/07/24 16:02 History of Present Illness HPI narrative: 74-year-old female presents to the emergency department for right shoulder pain. A few hours ago she was going to take her dog outside with the dog lurched and pulled her down and she landed on her right shoulder. She did not hit her head and did not have any other injuries. It hurts a great deal to move her shoulder. She is right handed and has never had an issue with that shoulder before. Related Data Home Medications ?Medication ?Instructions ?Recorded ?Confirmed aspirin 81 mg chewable tablet 1 tab PO DAILY 04/07/23 08/07/24 atorvastatin 80 mg tablet 80 mg PO DAILY 04/07/23 08/07/24 carvedilol 12.5 mg tablet 12.5 mg PO BID 04/07/23 10/10/23 fluticasone fur. 100 mcg-umeclid 1 inh inhalation DAILY 04/07/23 10/10/23 62.5 mcg-vilant 25 mcg inhalat.powder (Trelegy Ellipta) furosemide 20 mg tablet 20 mg PO .QOD 04/07/23 10/10/23 ipratropium bromide 21 mcg (0.03 2 spray intranasal BID 04/07/23 10/10/23 %) nasal spray levothyroxine 100 mcg tablet 100 mcg PO DAILY 04/07/23 10/10/23 lisinopril 20 mg tablet 20 mg PO DAILY 04/07/23 08/07/24 pantoprazole 40 mg tablet,delayed 40 mg PO DAILY 04/07/23 10/10/23 release potassium chloride 10 mEq 10 meq PO DAILY 04/07/23 10/10/23 tablet,extended release sertraline 100 mg tablet 100 mg PO DAILY 04/07/23 08/07/24 tizanidine 4 mg tablet 4 mg PO Q8H PRN muscle spasticity 04/07/23 08/07/24 apixaban 5 mg tablet (Eliquis) 5 mg PO BID 08/28/23 08/07/24 cholecalciferol (vitamin D3) 50 50 mcg PO DAILY 08/28/23 08/07/24 mcg (2,000 unit) capsule dapagliflozin propanediol 10 mg 10 mg PO DAILY 08/28/23 10/10/23 tablet (Farxiga) liothyronine 5 mcg tablet 5 mcg PO DAILY 08/28/23 10/10/23 amiodarone 100 mg tablet mg 08/07/24 carvedilol 6.25 mg tablet mg 08/07/24 levothyroxine 88 mcg tablet mcg 08/07/24 liothyronine 25 mcg tablet mcg 08/07/24 Previous Rx's ?Medication ?Instructions ?Recorded hydrocodone 5 mg-acetaminophen 325 1 tab PO Q6H PRN pain 5 days #20 08/07/24 mg tablet tabs Allergies Allergy/AdvReac Type Severity Reaction Status Date / Time tetanus and diphtheria Allergy Intermediate cellulitis Verified 08/07/24 16:11 toxoids allopurinol AdvReac Unknown Verified 08/07/24 16:11 spironolactone AdvReac Nausea Verified 08/07/24 16:11 isosorbide dinitrate AdvReac Nausea Uncoded 08/07/24 16:11 Opioid HPI Opioid Management Most Recent Pain and Opioid Data: Last Pain Scale 9 08/07/24 17:02 08/07/24 Last MAR Pain Assessment 08/07/24 17:02 Review of Systems ROS Narrative A ten point review of systems is negative except as noted above. 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 - 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 (ICD-10) Atrial fibrillation ?I48.91 - Unspecified atrial fibrillation (ICD-10) Hypercholesteremia ?E78.00 - Pure hypercholesterolemia, unspecified (ICD-10) Arthritis ?M19.90 - Unspecified osteoarthritis, unspecified site (ICD-10) Acid reflux ?K21.9 - Gastro-esophageal reflux disease without esophagitis (ICD-10) Cancer of left breast ?C50.912 - Malignant neoplasm of unspecified site of left female breast (ICD- 10) Aortic aneurysm with dissection ?I71.00 - Dissection of unspecified site of aorta (ICD-10) Hypertension ?I10 - Essential (primary) hypertension (ICD-10) Hypothyroidism ?E03.9 - Hypothyroidism, unspecified (ICD-10) DDD (degenerative disc disease) Aneurysm ?I72.9 - Aneurysm of unspecified site (ICD-10) CAD (coronary artery disease) of artery bypass graft ?I25.810 - Atherosclerosis of coronary artery bypass graft(s) without angina pectoris (ICD-10) COPD (chronic obstructive pulmonary disease) ?J44.9 - Chronic obstructive pulmonary disease, unspecified (ICD-10) Surgical History (Updated 08/28/23 @ 12:11 by Lola Burks RN) H/O: hysterectomy ?Z90.710 - Acquired absence of both cervix and uterus (ICD-10) Hx of eye surgery ?Z98.890 - Other specified postprocedural states (ICD-10) Hx of cholecystectomy ?Z90.49 - Acquired absence of other specified parts of digestive tract (ICD- 10) S/P CABG x 5 ?Z95.1 - Presence of aortocoronary bypass graft (ICD-10) Family History (Updated 08/28/23 @ 12:37 by Funmi Jeff) Other Breast cancer Colon cancer Family history of diabetes mellitus Heart disease Lung cancer Tongue cancer Social History (Updated 08/28/23 @ 12:38 by Funmi Jeff) Within the past year, how often did you have a drink containing alcohol: monthly or less Within the past year, how many standard drinks containing alcohol did you have on a typical day: 1 or 2 Total score: 0 Score interpretation: A score less than 3 is consistent with normal alcohol consumption. Smoking status: Current every day smoker Non-prescribed substance use: denies use Previous occupational history: RETIRED Highest level of school completed/degree received: GED or equivalent Little interest or pleasure in doing things: not at all Feeling down, depressed, or hopeless: not at all Exam Narrative Exam Narrative: Nurses note and vital signs reviewed and patient is not hypoxic. General: The patient appears well and in no apparent distress. Patient is resting comfortably on cart. Skin: Warm, dry, no pallor noted. There is no rash noted. Head: Normocephalic, atraumatic Eye: Normal conjunctiva, no drainage Ears, Nose, Mouth, and Throat: oral mucosa is moist. Nares patent. Cardiovascular: Regular Rate and Rhythm Respiratory: Patient is in no distress, no accessory muscle use, lungs are clear to auscultation, no wheezing, rales or rhonchi Back: non-tender GI: Soft and nontender Musculoskeletal: There is swelling in the right shoulder area. There is no deformity. The right elbow and wrist are nontender. Fingers have full range of motion and radial pulse 2+. She is quite reluctant to move her shoulder Neurological: A&O, normal speech Psychiatric: Cooperative Constitutional Vital Signs, click to edit/add: Last Vital Signs Temp 98.4 F 08/07/24 16:06 Pulse 97 H 08/07/24 16:06 Resp 18 08/07/24 16:06 BP 150/99 H 08/07/24 17:03 Pulse Ox 96 08/07/24 16:06 O2 Del Method Room Air 08/07/24 16:06 Course Vital Signs Vital signs: Vital Signs Temperature 98.4 F 08/07/24 16:06 Pulse Rate 97 H 08/07/24 16:06 Respiratory Rate 18 08/07/24 16:06 Blood Pressure 184/110 H 08/07/24 16:06 Pulse Oximetry 96 08/07/24 16:06 Oxygen Delivery Method Room Air 08/07/24 16:06 Temperature 98.4 F 08/07/24 16:06 Pulse Rate 97 H 08/07/24 16:06 Respiratory Rate 18 08/07/24 16:06 Blood Pressure 150/99 H 08/07/24 17:03 Pulse Oximetry 96 08/07/24 16:06 Oxygen Delivery Method Room Air 08/07/24 16:06 MDM - Extremity Injury (Upper) MDM Narrative Medical decision making narrative: The patient has a right proximal humerus fracture. Clinically the patient does not have dislocation. My clinical impression is that sublux and the x-rays were reviewed with Dr. Bhakta. Follow-up was arranged for August 11 at 11 AM. Sling applied, application checked by me and found to be appropriate, she is neurovascularly intact. Treatment diagnosis and follow-up were discussed thoroughly. Differential Diagnosis Differential diagnosis: Likely other (Fracture, contusion) Imaging Data Right shoulder x-ray: Radiologist's impression: ITS Impressions Shoulder X-Ray 08/07/24 16:08 IMPRESSION: Acute comminuted fracture of the right humeral head/neck is seen with avulsion of the greater tuberosity of the right humerus. Additionally, the right humeral head is seen positioned anterior and medial to the right glenoid, suggestive of subluxation versus anterior shoulder dislocation. Electronically authenticated by: ZHOU JAY Date: 08/07/2024 17:29 Discharge Plan Discharge Chief Complaint: Extremity Injury, Upper Clinical Impression: Closed right humeral fracture Patient Disposition: Home, Self-Care Time of Disposition Decision: 17:54 Condition: Good Mode of Transportation: Private Vehicle Prescriptions / Home Meds: New hydrocodone-acetaminophen 5-325 mg tablet 1 tab PO Q6H PRN (Reason: pain) 5 Days Qty: 20 0RF No Action carvedilol 6.25 mg tablet liothyronine 25 mcg tablet levothyroxine 88 mcg tablet amiodarone 100 mg tablet aspirin 81 mg tablet,chewable 1 tab PO DAILY atorvastatin 80 mg tablet 80 mg PO DAILY carvedilol 12.5 mg tablet 12.5 mg PO BID Trelegy Ellipta 100-62.5-25 mcg blister with device 1 inh INHALATION DAILY furosemide 20 mg tablet 20 mg PO .QOD ipratropium bromide 21 mcg (0.03 %) spray,non-aerosol 2 spray INTRANASAL BID levothyroxine 100 mcg tablet 100 mcg PO DAILY lisinopril 20 mg tablet 20 mg PO DAILY pantoprazole 40 mg tablet,delayed release (DR/EC) 40 mg PO DAILY potassium chloride 10 mEq tablet extended release 10 meq PO DAILY sertraline 100 mg tablet 100 mg PO DAILY tizanidine 4 mg tablet 4 mg PO Q8H PRN (Reason: muscle spasticity) Eliquis 5 mg tablet 5 mg PO BID Farxiga 10 mg tablet 10 mg PO DAILY liothyronine 5 mcg tablet 5 mcg PO DAILY cholecalciferol (vitamin D3) 50 mcg (2,000 unit) capsule 50 mcg PO DAILY Print Language: Citizen Of [place] Instructions: Arm Fracture in Adults (ED), How to Use a Sling (ED) Referrals: Jered Riojas MD [Primary Care Provider] - 1 week Jya Bhakta MD [Physician] - 08/11/24 11:00 am
[2024-08-07] MEDS: HYDROCODONE/ACET 5-325 MG TABLET 1 TAB PO (17:02)
[2024-08-07 17:03] VITALS: BP 150/99
[2024-08-07] MEDS: MORPHINE SULFATE 4 MG/ML VIAL IV (18:15)
== END 2024-08-07 18:39 | disposition home or self-care (01) ==
PROVIDERS: Emergency Provider Emergency Medicine; PCP Family Medicine
DX: S42.201A Unspecified fracture of upper end of right humerus, initial encounter for closed fracture (principal); W19.XXXA Unspecified fall, initial encounter; F17.200 Nicotine dependence, unspecified, uncomplicated
CPT/HCPCS: 73030; 96374; 99284; J2270

== ENCOUNTER 2024-08-18 10:09 | Outpatient (OUT) | payer MEDICARE, SELFPAY ==
--- NOTE | 2024-08-18 | XR_ITS ---
The [address] [address] Patient Name: DAREK HINOJOSA MRN: [id number] date: 1950 Sex: F Assigned Patient Location: Current Patient Location: Accession/Order Number: [id number] Exam Date: 08/18/2024 10:11 Report Date: 08/19/2024 08:54 At the request of: VASU JOSEPH Procedure: XR shoulder RT min 2V PROCEDURE: XR shoulder RT min 2V COMPARISON: 08/07/2024 HISTORY: RIGHT SHOULDER PAIN FINDINGS: BONES:Stable complex right humeral head and neck fracturer with displacement of the greater tuberosity 1.5 cm laterally. The glenohumeral and acromioclavicular joints are intact SOFT TISSUES:Negative. No visible soft tissue swelling. EFFUSION:None visible. OTHER: Negative. XR/XR shoulder RT min 2V IMPRESSION: Stable complex right humeral head and neck fracture Electronically authenticated by: LALI LEI Date: 08/19/2024 08:54
--- OUTSIDE RECORDS SUMMARY | 2024-08-18 10:18 | XMS_ITS | CCD ---
Author Organization [facility] Care Team Providers Care Communication Spec Name Role Phone SALOME DUSTIN K Unavailable Unavailable SALOME, DUSTIN K Unavailable Unavailable HOYKELLYKAYLEIGH M Unavailable Unavailable SALOME, DUSTIN K Unavailable Unavailable SALOME, DUSTIN K Unavailable Unavailable KAYLEIGH GAY M Unavailable Unavailable PHYSICIAN, DEFAULT Unavailable Unavailable PHYSICIAN, DEFAULT Unavailable Unavailable OLGA PARISI I Referring Unavailable KAYLEIGH GAY Primary Care Unavailable RENE, ESTEBAN H. Admitting Unavailable RENE, ESTEBAN H. Attending Unavailable KAYLEIGH GAY Primary Care Unavailable Kayleigh Gay MD Primary Care Provider [phone] Kayleigh Gay MD Unavailable DEIDRA .DR VICTOR Attending Unavailable HOY ., DR VICTOR [...] HOY ., DR VICTOR Consulting Unavailable ADRI, GABRIEL Consulting Unavailable ADRI, GABRIEL Admitting Unavailable HOY ., DR VICTOR Primary Care Unavailable ADRI, GABRIEL Attending Unavailable HOY ., DR VICTOR Primary Care Unavailable HOY ., DR VICTOR Admitting Unavailable HOY ., DR VICTOR Attending Unavailable HOY ., DR VICTOR Consulting Unavailable SAMSA ., YADIEL Admitting Unavailable SAMSA .YADIEL Attending Unavailable HOY ., DR VICTOR Primary Care Unavailable DR VASU EVANS Consulting Unavailable SAMSA ., YADIEL Consulting Unavailable HOY ., DR VICTOR Primary Care Unavailable HOY ., DR VICTOR Admitting Unavailable HOY ., DR VICTOR Attending Unavailable DEIDRA Fitzgerald, DR VICTOR Consulting Unavailable MOISÉS, DR RAMIREZ Admitting Unavailable MOISÉS, DR RAMIREZ Attending Unavailable DEIDRA Fitzgerald, DR VICTOR Primary Care Unavailable MOISÉS, DR RAMIREZ Consulting Unavailable Kayleigh Gay MD Primary Care Provider [phone] KAYLEIGH GAY Primary Care Unavailable KATIE, ALEKSANDAR Referring Unavailable KATIE, ALEKSANDAR Attending Unavailable KATIE, ALEKSANDAR Admitting Unavailable MOISÉS, OPAL Attending Unavailable MOISÉS, OPAL Attending Unavailable WARD THOMPSON Attending Unavailable WARD THOMPSON Attending Unavailable WARD THOMPSON Attending Unavailable Allergies Allergy Classification Reported Allergen(s) Allergy Type Date of Onset Reaction(s) Facility (10 sources) Allopurinol; Translations: [ALLOPURINOL] Drug Allergy 5 Intolerance, Other (See Comments) [facility] (9 sources) diphtheria toxoid vaccine, inactivated / tetanus toxoid vaccine, inactivated; Translations: [TETANUS AND DIPHTHER. TOX (PF)] Drug Allergy 8 Intolerance [facility] (5 sources) Isosorbide; Translations: [ISOSORBIDE MONONITRATE] Drug Allergy 6 Intolerance [facility] (8 sources) tetanus toxoid vaccine, inactivated; Translations: [TETANUS TOXOID ADSORBED] Drug Allergy 5 Other: See Comments [facility] (4 sources) Isosorbide Dinitrate; Translations: [ISOSORBIDE DINITRATE] Drug Allergy 6 Nausea And Vomiting [facility] (4 sources) Spironolactone; Translations: [SPIRONOLACTONE ] Drug Allergy 3 Nausea And Vomiting [facility] (1 source) TETANUS VACCINES AND TOXOID; Translations: [TETANUS VACCINES AND TOXOID] Propensity to adverse reactions to drug (disorder) 5 [facility] Repository Medications Current Medications Medication Drug [...] oral capsule (7 sources) Vitamin D Start: take 1 capsule by mouth in the morning cholecalciferol, vitamin D3, 2,000 units capsule Take 1 capsule (2,000 Units total) by mouth in the morning. 0 08/01/2023 Active Start: 05-09-2022 take 1 capsule [address] 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; Translations: [Other secondary cataract, right eye] Onset: 04-13-2021 Chronic Chronic obstructive pulmonary disease and bronchiectasis (5 sources) Pulmonary emphysema; Translations: [Other emphysema] Onset: 06-19-2022 10-30-2022 Chronic Complication of device; implant or graft (8 sources) Arteriosclerosis of coronary artery bypass graft; Translations: [Atherosclerosis of coronary artery bypass graft(s), unspecified, with unspecified angina pectoris] Onset: 07-19-2015 01-22-2020 Chronic Congestive heart failure; nonhypertensive (10 sources) Congestive heart failure; Translations: [Heart failure, unspecified] Onset: 07-24-2015 08-29-2021 Chronic Coronary atherosclerosis and other heart disease (10 sources) Coronary atherosclerosis; Translations: [Atherosclerotic heart disease of [place] coronary artery without angina pectoris] Onset: 06-22-2015 06-22-2015 Chronic Disorders of lipid metabolism (5 sources) Hyperlipidemia; Translations: [Hyperlipidemia, unspecified] Onset: 07-24-2015 01-22-2020 Chronic Esophageal disorders (2 sources) Gastroesophageal reflux disease; Translations: [Gastro-esophageal reflux disease without esophagitis] Onset: 10-30-2022 10-30-2022 Chronic Essential hypertension (8 sources) Essential hypertension; Translations: [Essential (primary) hypertension] Onset: 06-22-2015 01-22-2020 Chronic Heart valve disorders (13 sources) Aortic incompetence, non-rheumatic ; Translations: [Nonrheumatic aortic (valve) insufficiency] Onset: 01-09-2020 01-22-2020 Chronic Hypertension with complications and secondary hypertension (3 sources) Hypertensive heart disease with heart failure; Translations: [Hypertensive heart disease without heart failure] Onset: 08-20-2022 Chronic Nutritional deficiencies (5 sources) Moderate protein energy malnutrition; Translations: [Moderate protein-calorie malnutrition] Onset: 01-11-2020 01-22-2020 Chronic Other and ill-defined heart disease (4 sources) Mild left ventricular systolic dysfunction; Translations: [Other ill-defined heart diseases] Onset: 06-22-2015 06-22-2015 Chronic Residual codes; unclassified (1 source) Family [...] other specified circumstances] Onset: 01-15-2020 01-23-2020 Episodic Deficiency and other anemia (1 source) [...] Test Name Value Interpretation Reference Range Facility Office Visiton 07-29-2024 Follow-up visit [id number] Darek Mejía 1950 F Date Provider Department Center 07/29/2024 WARD JULIEN MARIANA [facility] Family History Problem Relation Age of Onset Coronary artery disease Father Diabetes Father Family Status - Relation Status Age at Father Level of Service:79440 [place] OFFICE/OUTPATIENT ESTABLISHED LOW MDM 20 MIN Reason for Visit and Comments: Follow-up [331166] - 3 month follow up [facility] 36on 03-03-2024 36 Patient came to the office for EKG last week. It was emailed to Dr. Thompson, who was advised that patient had cut her amiodarone and carvedilol dose in half as per last office note. Dr. Thompson would like to keep this dose after EKG was performed. I LM for patient letting her know. Normal [facility] Office Visiton 02-19-2024 Follow-up visit [id number] Darek Mejía 1950 F Date Provider Department Center 02/19/2024 WARD JULIEN Family History Problem Relation Age of Onset Coronary artery disease Father Diabetes Father Family Status - Relation Status Age at Father Level of Service:30235 [place] OFFICE/OUTPATIENT ESTABLISHED LOW MDM 20 MIN [facility] 36on 12-20-2023 36 Regarding stress gray t [...] Thank you Patient informed and verbalized understanding. [facility] Office Visiton 12-18-2023 Follow-up visit [id number] Darek Mejía 1950 Date Provider Department Center 12/18/2023 WARD JULIEN Family History Problem Relation Age of Onset Coronary artery disease Father Diabetes Father Family Status - Relation Status Age at Father Level of Service:44700 [place] OFFICE/OUTPATIENT NEW MODERATE MDM 45 MINUTES Normal [facility] Office Visiton 10-31-2023 Follow-up visit [id number] Darek Mejía 1950 F Date Provider Department Center 10/31/2023 OPAL VIVEROS Family History Problem Relation Age of Onset Coronary artery disease Father Diabetes Father Family Status - Relation Status Age at Father Level of Service:77965 [place] OFFICE/OUTPATIENT ESTABLISHED HIGH MDM 40 MIN [facility] EGD / Colonoscopyon 10-10-19 [facility] PathologyOrdered By : Naomi Bautista on 10-10-2023 [facility] Orders Onlyon 09-05-2023 Orders Only [id number] Darek Mejía 1950 Date Provider Department [place] 09/05/2023 NARAYAN RODRIGUEZ MARIANA Roy Family History Problem Relation Age of Onset Coronary artery disease Father Diabetes Father Family Status - Relation Status Age at Father [facility] 36on 08-17-2023 36 6 weeks s/p cardioversion would be 08/31/2023. Judy at Dr. Zhang' office made aware via fax. [facility] [address] Willian henderson' office called requesting Darek Coombs 3 days prior to EGD/colonscopy scheduled on 09/05/2023. Please advise. [facility] Office Visiton 08-01-2023 Follow-up visit [id number] Darek Mejía 1950 [facility] Department [place] 08/01/2023 OPAL VIVEROS MARIANA Roy Family History Problem Relation Age of Onset Coronary artery disease Father Diabetes Father Family Status - Relation Status Age at Father Level of Service:21707 [place] OFFICE/OUTPATIENT ESTABLISHED HIGH MDM 40-54 MIN [facility] FREE T3on 11-30-2022 FREE T3 2.19 pg/mlL Normal 2.18-3.98 [facility] Comment on above: Performed By: #### T 4, FT3, TSH #### [facility] [address] [address] [address] Rich Pham T4on 11-30-2022 T4 [Mass/Vol] 11.10 ug/dL Normal 4.80-13.90 [facility] Comment on above: Performed By: #### T 4, FT3, TSH #### [facility] [address] [address] [address] Rich Pham TSHon 11-30-2022 TSH 0.525 uIU/mL Normal 0.358-3.740 [facility] Comment on above: Performed By: #### T 4, FT3, TSH #### [facility] [address] [place] [address] Dr. Rich Pham FREE T3on 10-30-2022 FREE T3 2.77 pg/mlL Normal 2.18-3.98 [facility] Comment on above: Performed By: #### F T3, TSH, BNP, T4 #### [facility] [address] [address] [address] Rich Pham T4on 10-30-2022 T4 [Mass/Vol] 3.40 ug/dL Critically low 4.80-13.90 [facility] Comment on above: Performed By: #### F T3, TSH, BNP, T4 #### [facility] [address] [place] [address] Dr. Rich Pham TSHon 10-30-2022 TSH 2.102 uIU/mL Normal 0.358-3.740 [facility] Comment on above: Performed By: #### F T3, TSH, BNP, T4 #### [facility] [address] [place] [address] Dr. Rich Pham FREE T3on 08-30-2022 FREE T3 1.95 pg/mlL Critically low 2.18-3.98 [facility] Comment on above: Performed By: #### F T3, TSH, BNP, T4 #### [facility] [address] [place] [address] Dr. Rich Pham T4on 08-30-2022 T4 [Mass/Vol] 8.00 ug/dL Normal 4.80-13.90 [facility] Comment on above: Performed By: #### F T3, TSH, BNP, T4 #### [facility] [address] [place] [address] Dr. Rich Pham TSHon 08-30-2022 TSH 3.033 uIU/mL Normal 0.358-3.740 [facility] Comment on above: Performed By: #### F T3, TSH, BNP, T4 #### [facility] [address] [address] [address] Rich Pham ECHOCARDIO M/2D COMPLETEon 1 10-17-2021 ECHOCARDIO M/2D COMPLETE Patient: DAREK MEJÍA Exam Date: 08/16/2022 : 1950 Gender:F Ordering : GABRIEL KLia ADRI Admission #: [id number] Family : DR KAYLEIGH GAY . Order #: [id number] CLICK HERE TO VIEW EXAM ECHOCARDIOGRAM REPORT [...] 08/18/2022 at 16:30 Normal [facility] BNPon 07-24-2022 Natriuretic peptide B (Bld) [Mass/Vol] 1535.0 pg/mL Critically high <=900.0 [facility] Comment on above: Performed By: #### F T3, TSH, BNP, T4 #### [facility] [address] [place] [address] Dr. Rich Pham FREE T3on 07-24-2022 FREE T3 1.90 pg/mlL Critically low 2.18-3.98 [facility] Comment on above: Performed By: #### F T3, TSH, BNP, T4 #### [facility] [address] [place] [address] Dr. Rich Pham T4on 07-24-2022 T4 [Mass/Vol] 9.10 ug/dL Normal 4.80-13.90 [facility] Comment on above: Performed By: #### F T3, TSH, BNP, T4 #### [facility] [address] [place] [address] Dr. Rich Pham TSHon 07-24-2022 TSH 1.057 uIU/mL Normal 0.358-3.740 [facility] Comment on above: Performed By: #### F T3, TSH, BNP, T4 #### [facility] [address] [place] [address] Dr. Rich Pham INSULINon 06-20-2022 Insulin 7.0 uIU/mL Normal 2.6-24.9 [facility] Comment on above: Performed By: #### F T3, TSH, BNP, T4 #### [facility] [address] [place] [address] Dr. Rich Pham BNPon 06-19-2022 Natriuretic peptide B (Bld) [Mass/Vol] 962.0 pg/mL Critically high <=900.0 [facility] Comment on above: Performed By: #### F T3, TSH, BNP, T4 #### [facility] [address] [place] [address] Dr. Rich Pham CBC AUTO DIFFon 06-19-2022 BASO # 0.1 103/ul Normal 0.0-0.1 [facility] Comment on above: Performed By: #### F T3, TSH, BNP, T4 #### [facility] [address] [place] [address] Dr. Rich Pham Basophils/100 WBC (Bld) 1.3 % Normal 0.2-2.0 [facility] Comment on above: Performed By: #### F T3, TSH, BNP, T4 #### [facility] [address] [place] [address] Dr. Rich Pham EO # 0.1 103/ul Normal 0.0-0.7 [facility] Comment on above: Performed By: #### F T3, TSH, BNP, T4 #### [facility] [address] [place] [address] Dr. Rich Pham Eosinophils/100 WBC (Bld) 1.9 % Normal 0.9-7.0 [facility] Comment on above: Performed By: #### F T3, TSH, BNP, T4 #### [facility] [address] [place] [address] Dr. Rich Pham Erythrocyte distribution width (RBC) [Ratio] 13.7 % Normal 11.0-15.0 [facility] Comment on above: Performed By: #### F T3, TSH, BNP, T4 #### [facility] [address] [place] [address] Dr. Rich Pham Hematocrit (Bld) [Volume fraction] 39.5 % Normal 36.0-48.0 [facility] Comment on above: Performed By: #### F T3, TSH, BNP, T4 #### [facility] [address] [place] [address] Dr. Rich Pham Hemoglobin (Bld) [Mass/Vol] 12.7 g/dL Normal 12.0-16.0 [facility] Comment on above: Performed By: #### F T3, TSH, BNP, T4 #### [facility] [address] [place] [address] Dr. Rich Pham IG # 0.03 10e3/ul Normal 0.00-0.03 [facility] Comment on above: Performed By: #### F T3, TSH, BNP, T4 #### [facility] [address] [place] [address] Dr. Rich Pham IG % 0.4 % Normal 0.0-0.5 [facility] Comment on above: Performed By: #### F T3, TSH, BNP, T4 #### [facility] [address] [place] [address] Dr. Rich Pham LYMPH # 2.5 103/ul Normal 1.2-3.8 [facility] Comment on above: Performed By: #### F T3, TSH, BNP, T4 #### [facility] [address] [place] [address] Dr. Rich Pham Lymphocytes/100 WBC (Bld) 32.8 % Normal 20.5-60.0 [facility] Comment on above: Performed By: #### F T3, TSH, BNP, T4 #### [facility] [address] [place] [address] Dr. Rich Pham MANUAL DIFF REQ NO Normal [facility] Comment on above: Performed By: #### F T3, TSH, BNP, T4 #### [facility] [address] [place] [address] Dr. Rich Pham MCH (RBC) [Entitic mass] 28.5 pg Normal 26.7-34.0 [facility] Comment on above: Performed By: #### F T3, TSH, BNP, T4 #### [facility] [address] [place] [address] Dr. Rich Pham MCHC (RBC) [Mass/Vol] 32.2 g/dL Normal 29.9-35.2 [facility] Comment on above: Performed By: #### F T3, TSH, BNP, T4 #### [facility] [address] [place] [address] Dr. Rich Pham MCV (RBC) [Entitic vol] 88.6 fL Normal 81.0-99.0 [facility] Comment on above: Performed By: #### F T3, TSH, BNP, T4 #### [facility] [address] [place] [address] Dr. Rich Pham MONO # 0.6 103/ul Normal 0.3-0.8 [facility] Comment on above: Performed By: #### F T3, TSH, BNP, T4 #### [facility] [address] [place] [address] Dr. Rich Pham Monocytes/100 WBC (Bld) 7.6 % Normal 1.7-12.0 [facility] Comment on above: Performed By: #### F T3, TSH, BNP, T4 #### [facility] [address] [place] [address] Dr. Rich Pham NEUT # 4.2 103/ul Normal 1.4-6.5 [facility] Comment on above: Performed By: #### F T3, TSH, BNP, T4 #### [facility] [address] [place] [address] Dr. Rich Pham Neutrophils/100 WBC (Bld) 56.0 % Normal 43.0-75.0 [facility] Comment on above: Performed By: #### F T3, TSH, BNP, T4 #### [facility] [address] [place] [address] Dr. Rich Pham Platelet mean volume (Bld) [Entitic vol] 10.4 fL Normal 9.5-13.5 [facility] Comment on above: Performed By: #### F T3, TSH, BNP, T4 #### [facility] [address] [place] [address] Dr. Rich Pham PLT 253 103/ul Normal 150-450 [facility] Comment on above: Performed By: #### F T3, TSH, BNP, T4 #### [facility] [address] [place] [address] Dr. Rich Pham RBC 4.46 106/ul Normal 4.20-5.40 [facility] Comment on above: Performed By: #### F T3, TSH, BNP, T4 #### [facility] [address] [place] [address] Dr. Rich Pham WBC 7.5 103/ul Normal 4.0-11.0 [facility] Comment on above: Performed By: #### F T3, TSH, BNP, T4 #### [facility] [address] [address] [address] LUNG CANCER SCREENINGon [...] VASU EVANS Date: 2022-06-19 21:05 Normal [facility] FREE THYROXINE INDEX T7on FTI 2.24 Normal 1.30-4.50 [facility] Comment on above: Performed By: #### F T3, TSH, BNP, T4 #### [facility] [address] [address] [address] Rich Pham T3U 33.0 % Normal 30.0-39.0 [facility] Comment on above: Performed By: #### F T3, TSH, BNP, T4 #### [facility] [address] [address] [address] Rich Pham T4 [Mass/Vol] 6.80 ug/dL Normal 4.80-13.90 [facility] Comment on above: Performed By: #### F T3, TSH, BNP, T4 #### [facility] [address] [address] [address] Rich Pham GLYCOHEMOGLOBIN A1Con 2021 ADA RECOMMENDATION SEE BELOW Normal [facility] Comment on above: Result Comment: ADA RECOMMENDED LIMIT 4.0 - 6.0 ADA THERAPEUTIC TARGET < 7.0 ACTION SUGGESTED > 7.0 Performed By: #### F T3, TSH, BNP, T4 #### [facility] [address] [address] [address] Rich Pham Glucose [Mass/Vol] 117 mg/dL Normal [facility] Comment on above: Performed By: #### F T3, TSH, BNP, T4 #### [facility] [address] [address] [address] Rich Pham HbA1c (Bld) [Mass fraction] 5.7 % Normal 4.5-6.2 [facility] Comment on above: Performed By: #### F T3, TSH, BNP, T4 #### [facility] [address] [address] [address] Rich Pham IRONon 06-19-2022 Iron [Mass/Vol] 50.0 ug/dL Normal 50.0-170.0 [facility] Comment on above: Performed By: #### I IAM HARO #### [facility] [address] [address] [address] Rich Pham LIPID PROFILEon 06-19-2022 CHOL-HDL RATIO NORM SEE BELOW Normal [facility] Comment on above: Result Comment: 3.3 - 4.4 LOW RISK 4.4 - 7.1 AVERAGE RISK 7.1 - 11.0 MODERATE RISK >11.0 HIGH RISK Performed By: #### F T3, TSH, BNP, T4 #### [facility] [address] [address] [address] Rich Pham Cholesterol [Mass/Vol] 142 mg/dL Normal <=200 [facility] Comment on above: Performed By: #### F T3, TSH, BNP, T4 #### [facility] [address] [address] [address] Rich Pham Cholesterol in HDL [Mass/Vol] 52 mg/dL Normal 40-60 [facility] Comment on above: Performed By: #### F T3, TSH, BNP, T4 #### [facility] [address] [address] [address] Rich Pham Cholesterol in LDL [Mass/Vol] 78.8 mg/dL Normal [facility] Comment on above: Performed By: #### F T3, TSH, BNP, T4 #### [facility] [address] [address] [address] Rich Pham Cholesterol.total/Ch olesterol in HDL [Mass ratio] 2.7 {ratio} Normal [facility] Comment on above: Performed By: #### F T3, TSH, BNP, T4 #### [facility] [address] [address] [address] Rich Pham HDL NORMAL > or = 60 mg/dl - LO W CARDIOVASCULAR RISK <40 mg/dl - HIGH CARDIOVASCULAR RISK Normal [facility] Comment on above: Performed By: #### F T3, TSH, BNP, T4 #### [facility] [address] [address] [address] Rich Pham LDL CALC NORMAL SEE BELOW Normal [facility] Comment on above: Result Comment: <100 mg/dl OPTIMAL 100 - 129 mg/dl NEAR OR ABOVE OPTIMAL 130 - 159 mg/dl BORDERLINE HIGH 160 - 189 mg/dl HIGH >190 mg/dl VERY HIGH Performed By: #### F T3, TSH, BNP, T4 #### [facility] [address] [address] [address] Rich Pham Triglyceride [Mass/Vol] 56 mg/dL Normal <=150 [facility] Comment on above: Performed By: #### F T3, TSH, BNP, T4 #### [facility] [address] [address] [address] Rich Pham VLDL CALC 11.2 mg/dL Normal [facility] Comment on above: Performed By: #### F T3, TSH, BNP, T4 #### [facility] [facility] [address] [place] [address] Dr. Rich Pham PROF 14(COMP METB)on 022 Albumin [Mass/Vol] 3.5 g/dL Normal 3.4-5.0 [facility] Comment on above: Performed By: #### F T3, TSH, BNP, T4 #### [facility] [address] [place] [address] Dr. Rich Pham Albumin/Globulin [Mass ratio] 0.9 {ratio} Normal [facility] Comment on above: Performed By: #### F T3, TSH, BNP, T4 #### [facility] [address] [place] [address] Dr. Rich Pham ALP [Catalytic activity/Vol] 95 U/L Normal 46-116 [facility] Comment on above: Performed By: #### F T3, TSH, BNP, T4 #### [facility] [address] [place] [address] Dr. Rich Pham ALT [Catalytic activity/Vol] 22 U/L Normal 14-59 [facility] Comment on above: Performed By: #### F T3, TSH, BNP, T4 #### [facility] [address] [place] [address] Dr. Rich Pham Anion gap [Moles/Vol] 11.3 mmol/L Normal [facility] Comment on above: Performed By: #### F T3, TSH, BNP, T4 #### [facility] [address] [place] [address] Dr. Rich Pham AST [Catalytic activity/Vol] 21 U/L Normal 15-37 [facility] Comment on above: Performed By: #### F T3, TSH, BNP, T4 #### [facility] [address] [place] [address] Dr. Rich Pham Bilirubin [Mass/Vol] 0.4 mg/dL Normal 0.2-1.0 [facility] Comment on above: Performed By: #### F T3, TSH, BNP, T4 #### [facility] [address] [place] [address] Dr. Rich Pham Calcium [Mass/Vol] 10.4 mg/dL Critically high 8.5-10.[address] [facility] Comment on above: Performed By: #### F T3, TSH, BNP, T4 #### [facility] [address] [address] [address] Rich Pham Chloride [Moles/Vol] 105 mmol/L Normal 98-107 [facility] Comment on above: Performed By: #### F T3, TSH, BNP, T4 #### [facility] [address] [place] [address] Dr. Rich Pham CO2 [Moles/Vol] 27.8 mmol/L Normal 21.0-32.0 [facility] Comment on above: Performed By: #### F T3, TSH, BNP, T4 #### [facility] [address] [place] [address] Dr. Rich Pham Creatinine [Mass/Vol] 0.94 mg/dL Normal 0.55-1.02 [facility] Comment on above: Performed By: #### F T3, TSH, BNP, T4 #### [facility] [address] [place] [address] Dr. Rich Pham EGFR-AF GUAMANIAN >60 Normal >=60 [facility] Comment on above: Performed By: #### F T3, TSH, BNP, T4 #### [facility] [address] [place] [address] Dr. Rich Pham EGFR-NON AF GUAMANIAN 58 mL/min/1.73m2 Critically low >=60 [facility] Comment on above: Performed By: #### F T3, TSH, BNP, T4 #### [facility] [address] [place] [address] Dr. Rich Pham Globulin (S) [Mass/Vol] 3.9 g/dL Normal [facility] Comment on above: Performed By: #### F T3, TSH, BNP, T4 #### [facility] [address] [address] [address] Rich Pham Glucose [Mass/Vol] 94 mg/dL Normal 74-106 [facility] Comment on above: Performed By: #### F T3, TSH, BNP, T4 #### [facility] [address] [place] [address] Dr. Rich Pham Potassium [Moles/Vol] 4.1 mmol/L Normal 3.5-5.1 [facility] Comment on above: Performed By: #### F T3, TSH, BNP, T4 #### [facility] [address] [place] [address] Dr. Rich Pham Protein [Mass/Vol] 7.4 g/dL Normal 6.4-8.2 [facility] Comment on above: Performed By: #### F T3, TSH, BNP, T4 #### [facility] [address] [place] [address] Dr. Rich Pham Sodium [Moles/Vol] 140 mmol/L Normal 136-145 [facility] Comment on above: Performed By: #### F T3, TSH, BNP, T4 #### [facility] [address] [place] [address] Dr. Rich Pham Urea nitrogen [Mass/Vol] 15.0 mg/dL Normal 7.0-18.0 [facility] Comment on above: Performed By: #### F T3, TSH, BNP, T4 #### [facility] [address] [place] [address] Dr. Rich Pham Urea nitrogen/Creatinine [Mass ratio] 16.0 mg/mg Normal [facility] Comment on above: Performed By: #### F T3, TSH, BNP, T4 #### [facility] [address] [place] [address] Dr. Rich Pham TSHon 06-19-2022 TSH 6.083 uIU/mL Critically high 0.358-3.740 [facility] Comment on above: Performed By: #### F T3, TSH, BNP, T4 #### [facility] [address] [place] [address] Dr. Rich Pham VITAMIN D 25 OHon 06-19-2022 VIT D 25-OH 41.3 ng/mL Normal [facility] Comment on above: Performed By: #### F T3, TSH, BNP, T4 #### [facility] [address] [place] [address] Dr. Rich Pham VIT D RANGES SEE BELOW Normal [facility] Comment on above: Result Comment: <20 ng/mL Vit D deficient 20 - <30 ng/mL Vit D insufficient 30 - 100 ng/mL Vit D sufficient >100 ng/mL Potential Toxicity Performed By: #### F T3, TSH, BNP, T4 #### [facility] [address] [place] [address] Dr. Rich Pham PROF CHEM 8 (BAS METB)on Anion gap [Moles/Vol] 11.9 mmol/L Normal [facility] Comment on above: Performed By: #### F T3, TSH, BNP, T4 #### [facility] [address] [place] [address] Dr. Rich Pham Calcium [Mass/Vol] 9.9 mg/dL Normal 8.5-10.1 [facility] Comment on above: Performed By: #### F T3, TSH, BNP, T4 #### [facility] [address] [place] [address] Dr. Rich Pham Chloride [Moles/Vol] 101 mmol/L Normal 98-107 [facility] Comment on above: Performed By: #### F T3, TSH, BNP, T4 #### [facility] [address] [place] [address] Dr. Rich Pham CO2 [Moles/Vol] 30.0 mmol/L Normal 21.0-32.0 [facility] Comment on above: Performed By: #### F T3, TSH, BNP, T4 #### [facility] [address] [place] [address] Dr. Rich Pham Creatinine [Mass/Vol] 1.10 mg/dL Critically high 0.55-1.02 [facility] Comment on above: Performed By: #### F T3, TSH, BNP, T4 #### [facility] [address] [place] [address] Dr. Rich Pham EGFR-AF GUAMANIAN 59 mL/min/1.73m2 Critically low >=60 [facility] Comment on above: Performed By: #### F T3, TSH, BNP, T4 #### [facility] [address] [place] [address] Dr. Rich Pham EGFR-NON AF GUAMANIAN 49 mL/min/1.73m2 Critically low >=60 [facility] Comment on above: Performed By: #### F T3, TSH, BNP, T4 #### [facility] [address] [place] [address] Dr. Rich Pham Glucose [Mass/Vol] 115 mg/dL Critically high 74-106 [facility] Comment on above: Performed By: #### F T3, TSH, BNP, T4 #### [facility] [address] [place] [address] Dr. Rich Pham Potassium [Moles/Vol] 3.9 mmol/L Normal 3.5-5.1 [facility] Comment on above: Performed By: #### F T3, TSH, BNP, T4 #### [facility] [address] [place] [address] Dr. Rich Pham Sodium [Moles/Vol] 139 mmol/L Normal 136-145 [facility] Comment on above: Performed By: #### F T3, TSH, BNP, T4 #### [facility] [address] [place] [address] Dr. Rich Pham Urea nitrogen [Mass/Vol] 15.0 mg/dL Normal 7.0-18.0 [facility] Comment on above: Performed By: #### F T3, TSH, BNP, T4 #### [facility] [address] [place] [address] Dr. Rich Pham Urea nitrogen/Creatinine [Mass ratio] 13.6 mg/mg Normal [facility] Comment on above: Performed By: #### F T3, TSH, BNP, T4 #### [facility] [address] [place] [address] Dr. Rich Pham FLUORO FOR SURGICAL PROCEDUR ESon 04-10-2019 FLUORO FOR SURGICAL PROCEDURES FLUORO FOR SURGICAL PROCEDURES : 04/10/2019 6:30 AM CLINICAL HISTORY: ACDF . COMPARISON: None available. Intraoperative fluoroscopy was provided for Dr. Rene taylor. A total of 16.8 seconds of fluoroscopy was used, with 6 fluoroscopic stills saved. No diagnostic images were obtained. Please see Dr. López surgical notes for completeness. Interpreted by: Juvenal Cagle MD Signed by: Juvenal Cagle MD 04/10/[address] [facility] Surgical Specimenon 04-10-20 Surgical Specimen [facility] [address] [place] [address] FINAL SURGICAL PATHOLOGY REPORT Patient Name: DAREK MEJÍA Accession No: [id number] Age Sex: 1950 Location: [facility] Account No: [id number] Collected: 04/10/2019 Med Rec No: [id number] Received: 04/10/2019 Attend Phys: ESTEBAN LÓPEZ Completed: [...] in one cassette after decalcification. JAZZY/CHRISTY CPT: 40199 X1 32974 X1 MICHELLE PEREZ M.D. 04/15/2019 Electronically signed out by Page [address] [facility] Comment on above: Performed By: #### S UR #### [address] [id number] Type and Screen Capture 3 sc rn cellon 04-10-2019 Type and Screen Capture 3 scrn cell PATIENT: MICAELA OSWALD LOC: LCOPS,ORPOOL,NON BILL# : [id number] : 1950 SEX: F ORDERED BY: DAVIN MERCEDES ORDERED : 04/10/2019 06:22 COLLECTED: 04/10/2019 07:21 ORDER : [id number] RECEIVED : 04/10/2019 07:21 ------ TEST NAME RESULT UNITS RANGES ABN FL ST ABORH Capture A POS F Antibody 3 Cell Scrn Captu NEG F ----- Normal [facility] Comment on above: Performed By: #### T S3C #### [address] [place] [id number] CARDIAC STRESS TESTon 2018 CARDIAC STRESS TEST [place] [id number] CARDIAC STRESS TEST PATIENT NAME: DAREK MEJÍA : 1950 MED REC NO: [id number] ROOM: ACCOUNT NO: [id number] ADMIT DATE: 03/31/2019 PROVIDER: Marli Cox DO [...] function. MARLI COX DO #14:19:36 [id number] Doc#: [id number] CC: Normal [facility] Coding Summary.on 01-30-2019 Coding Summary. CODING DATE: 019 FINAL [facility] STATUS: Home (Routine DC) PAYOR: [...] Devlin CphT Date Saved: 01/30/2019 10:45 am [facility] Coding Summary.on 01-29-2019 Coding Summary. CODING DATE: 019 FINAL [facility] STATUS: Home (Routine DC) PAYOR: Medicare APC DESCRIPTION 5442 Level 2 Nerve Injections ADMIT DX: REASON FOR VISIT DX: M54.12 Radiculopathy, cervical region FINAL DX: PRINCIPAL: M54.12 Radiculopathy, cervical region SECONDARY: F17.210 Nicotine dependence, cigarettes, uncomplicated Z79.82 half-way (current) use of aspirin Z95.1 Presence of [...] Velasquez Date Saved: 01/29/2019 08:16 am Normal [facility] Main OR Intraoperative Recor don 01-28-2019 Main OR Intraoperative Record IntraOp Document Type FTPM Summary Primary Physician: Cain Rowley MD Finalized Date/Time: 01/28/19 07:58:26 Pt. Name: DAREK MEJÍA /Sex: 1950 Female Med Rec #: [id number] Physician: Cain Rowley MD Financial #: [id number] Pt. Type: P Room/Bed: / Admit/Disch: 01/28/19 06:52:45 - Institution: Case Times FTPM Entry 1 Patient Times In Room 01/28/19 07:53:00 Out Room 01/28/19 08:00:00 Procedure Times Start 01/28/19 07:56:00 Stop 01/28/19 07:58:00 Anesthesia Times Start 01/28/19 07:53:00 Stop 01/28/19 08:00:00 Last Modified By: [place] OLIVAS, Nettie Self 01/28/19 07:58:17 Case Attendance FTPM Entry 1 Entry 2 Entry 3 Case Attendee Alysia Gustafson DO, Rik Rowley MD, Cain Guthrie RN, Nettie Self Role Performed Anesthesiologist of Surgeon - Primary State Epidemiologist - Primary Record Time In 01/28/19 07:53:00 [...] Tamanna Sun RN, Aaron Donohue Role Performed State Epidemiologist - Primary Scrub - Other Director Emergency Department Time In 01/28/19 07:53:00 01/28/19 07:53:00 01/28/19 [...] and tissue Entry 1 Skin Integrity Intact, [place], Warm, and Skin Abnormality No Dry Outcomes [...] By: Nettie Guthrie RN 01/28/19 07:58 Normal [facility] Main OR Preoperative Recordo n 01-28-2019 Main OR Preoperative Record Holding Area Document Type FTPM Summary Primary Physician: Cain Rowley MD Finalized Date/Time: 01/28/19 07:17:16 Pt. Name: DAREK MEJÍA /Sex: 1950 Female Med Rec #: [id number] Physician: Cain Rowley MD Financial #: [id number] Pt. Type: P Room/Bed: / Admit/Disch: 01/28/19 [...] 07:14 Melina Harper RN 01/28/19 07:17 Normal [facility] Operative Reporton 9 Operative Report Patient: [...] 96 mmHg SpO2 94 % . Normal [facility] Comment on above: Result Comment: Elec tronically Signed By: Cain Rowley MD\.br\Date and Time Signed: 01/28/19 07:58 EDT Consultation Noteon 01-25-20 Consultation Note Result type: Palomajeannie s Note-Physician Result date: January 17, 2019 10:35 EDT Result status: Auth (Verified) Result title: Pain Managment Follow up Performed by: Marah Ferrell PA-C on January 17, 2019 10:38 EDT Verified by: Marah Ferrell PA-C on January 17, 2019 10:38 EDT Encounter info: [id number], Gerry Hammond, Pain Management, 01/17/2019 - 01/17/2019 [...] tid., # 180 tab(s), Refills(s) 0, Pharmacy: [facility] Documented Medications Documented NIFEdipine 30 mg [...] list: All Problems Smoker / SNOMED CT 653363333 / Confirmed Added secondary to documentation in [...] of motion. Normal strength. Integumentary: Warm, Dry, [place]. Injection site well-healed Neurologic: Alert, Oriented. Psychiatric: [...] Electronically Co-Signed By: Amrik WADE, Cain Perla [facility] Comment on above: Result Comment: Elec [...] to 7 epidural steroid injection done on 4/29/19 that provided 50% relief for 2-3 days. [...] tid., # 180 tab(s), Refills(s) 0, Pharmacy: [facility] Documented Medications Documented NIFEdipine 30 mg [...] list: All Problems Smoker / SNOMED CT 762274075 / Confirmed Added secondary to documentation in [...] of motion. Normal strength. Integumentary: Warm, Dry, [place]. Injection site well-healed Neurologic: Alert, Oriented. Psychiatric: [...] with any interval questions or concerns. Normal [facility] Comment on above: Result Comment: ERRO R - WRONG FOLDER Electronically Signed By: Marah Ferrell PA-C\.br\Date and Time Signed: 01/17/19 10:38 EDT\.br\Electronically Co-Signed By: Cain Rowley MD Coding Summary.on 12-31-2018 Coding Summary. CODING DATE: 019 FINAL [facility] STATUS: Home (Routine DC) PAYOR: [...] Velasquez Date Saved: 12/31/2018 02:30 pm Normal [facility] Progress Note-Physicianon Progress Note-Physician Patient: DAREK [...] 21 tab(s), Refills(s) 0, Pharmacy: [facility] gabapentin 300 mg Cap: See Instructions, increase dose as directed to 600 mg po tid., # 180 tab(s), Refills(s) 0, Pharmacy: [facility] Documented Medications Documented NIFEdipine 30 mg [...] list: All Problems Smoker / SNOMED CT 372199274 / Confirmed Added secondary to documentation in Social History. Histories Past Medical History: No active or resolved past medical history items have been selected or recorded., SMOKES TOBACCO Family History: No family history items have been selected or recorded. Procedure history: Mastectomy (0532853253). Hysterectomy (018173638). Cholecystectomy (21419561). CABG x 5 - Coronary artery bypass grafts x 5 (500278692). Social History Social & Psychosocial Habits Alcohol [...] and perfusion.. Gastrointestinal: Benign, nontender.. Integumentary: Warm, [place]. Neurologic: PER PAIN CLINIC ASSESSMENT. Plan Citizen Of [place] Society of Anesthesiologists (ASA) physical status classification: Class III. Anesthetic Preoperative Plan Anesthesia: Monitored anesthesia care. Anesthetic plan, risks, benefits, and alternatives discussed with the patient and/or family. Patient verbalized understanding. Informed consent was given. Communication: face to face with Pt educated on the importance of smoking cessation. [facility] Comment on above: Result Comment: Elec tronically Signed By: Stevie Linares Jr, DO\.br\Date and Time Signed: 12/31/18 15:15 EDT Main OR Intraoperative Recor don 12-30-2018 Main OR Intraoperative Record IntraOp Document Type FTPM Summary Primary Physician: Cain Rowley MD Finalized Date/Time: 12/30/18 08:22:53 Pt. Name: DAREK MEJÍA /Sex: 1950 Female Med Rec #: [id number] Physician: Cain Rowley MD Financial #: [id number] Pt. Type: P Room/Bed: / Admit/Disch: 12/30/18 [...] Jr, DO, MD, Joshua D Ward RN, Nettie Self Role Performed Anesthesiologist of Surgeon - Primary [place] Epidemiologist - Primary Record Time In 12/30/18 08:15:00 [...] Performed Scrub - Primary Scrub - Other Director Emergency Department Time In 12/30/18 08:15:00 12/30/18 08:15:00 12/30/18 [...] X-ray Applicable) PreOp Antibiotic No Time Out Stevie Linares Jr, DO, Given Participants Nettie Guthrie RN, Josh OLIVAS, [...] and tissue Entry 1 Skin Integrity Intact, [place], Warm, and Skin Abnormality No Dry Outcomes [...] Up PostOp Destination PACU Transported By Nettie Guthrei RN Patient Status Stable Report Given Funmi [...] By: Nettie Guthrie RN 12/30/18 08:22 Normal [facility] Main OR Preoperative Recordo n 12-30-2018 Main OR Preoperative Record Holding Area Document Type FTPM Summary Primary Physician: Cain Rowley MD Finalized Date/Time: 12/30/18 07:39:27 Pt. Name: DAREK MEJÍA /Sex: 1950 Female Med Rec #: [id number] Physician: Cain Rowley MD Financial #: [id number] Pt. Type: P Room/Bed: / Admit/Disch: 12/30/18 [...] By: Melina Harper RN 12/30/18 07:39 Normal [facility] Operative Reporton 9 Operative Report Patient: [...] 112 mmHg SpO2 98 % . Normal [facility] Comment on above: Result Comment: Elec tronically Signed By: Cain Rowley MD\.br\Date and Time Signed: 12/30/18 08:23 EDT Message - General Officeon 0 12-25-2018 Message - General Office From: James Eaton ([facility] Wirer Helper) To: Amrik WADE, Cain Perla; Sent: 12/19/2018 14:37:15 EDT Subject: Rx Patient called and said that she had been prescribed Gabapentin per her last care plan. She said it makes her sleepy and weak. She asked if she would be able to take something different. From: Marah Ferrell PA-C To: [facility] Inbox; Sent: 12/20/2018 09:18:44 EDT Subject: RE: Rx KAY GPN, we can try lyrica if insurance mitzi cover it. Or just proceed with injection only and see if that helps. Please let me know what she would like to try. From: Jeevan LiuCone SewerElysia Fitzgerald ([facility] Inbox) To: [facility]; Sent: 12/20/2018 10:01:06 EDT Subject: pt to call back. called patient, left a message requesting a return telephone. From: Jeevan LiuCone SewerElysia Fitzgerald ([facility] Inbox) To: Marah Ferrell PA-C; Sent: 12/20/2018 13:34:17 EDT Subject: RE: pt to call back. Patient called back and stated that she will d/c the gabapentin and will just wait for injection before trying the lyrica Received a request for prior authorization for the Gabapentin from [facility] From: Josh OLIVAS, Elva Greenwood ([facility] Inbox) To: [facility]; Sent: 12/23/2018 08:44:56 EDT Subject: Rx prior auth request Tried to call [facility] and they do not open until after 9 - will call to see if she picked this up (see notes below) and why we got this request. From: Elva Moreno RN ([facility]) To: Elva Moreno RN; Sent: 12/23/2018 10:51:16 EDT Subject: FW: Rx prior auth request Contacted [facility] and they confirm the patient filled this on the 17 of December - not sure why we got the request for Prior authoization, but since we will not be continuing this medication we will disregard the request. for PA. 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 [...] is reviewed. From: Marah Ferrell PA-C To: [facility]; Sent: 12/25/2018 11:05:18 EDT Subject: RE: Intractable pain injection scheduled Sunday12/30/18 I can send a medrol dose pack in if she would like to use until the injection From: Elva Moreno RN ([facility] Inbox) To: [facility]; Sent: 12/25/2018 11:11:14 EDT Subject: FW: Intractable pain injection scheduled Sunday12/30/18 Due Date/Time: 12/25/2018 13:00:00 EDT Left voice mail for patient to call the office From: Elva Moreno RN ([facility]box) To: Marah Ferrell PA-C; Sent: 12/25/2018 11:14:17 EDT Subject: Dose Pack On hold pending signature Order:methylPREDNISolone (Medrol Dosepack 4 mg Tab) 1 packet(s) Oral As Directed as directed on package labeling Qty: 21 tab(s) Duration: 6 day(s) Refills: 0 Substitutions Allowed Route To Pharmacy - [facility] Patient returned call and states she will give it a try . Approved Order:methylPREDNISolone (Medrol Dosepack 4 mg Tab) 1 packet(s) Oral As Directed as directed on package labeling Qty: 21 tab(s) Duration: 6 day(s) Refills: 0 Substitutions Allowed Route To Pharmacy - [facility] Signed by Marah Ferrell PA-C 12/25/18 11:27:00 From: Marah Ferrell PA-C To: [facility]; Sent: 12/25/2018 11:27:52 EDT Subject: RE: Dose Pack sent From: Jeevan Cone SewerElysia Fitzgerald ([facility] Inbox) To: [facility]; Sent: 12/25/2018 12:57:16 EDT Subject: RE: Dose Pack attempted to call patient, no answer and no voicemail From: Triny Woods ([facility] Inbox) To: [facility]; Sent: 12/25/2018 13:21:44 EDT Subject: RE: Dose Pack patient returned call I informed her prescription sent to pharmacy Normal [facility] Consultation Noteon 12-24- 19 Consultation Note HOSPITAL REGULATIONS : ALL [...] to 600 mg three times per day. [place] [facility] Prescription Reporting System report was reviewed and is consistent with the previous medications prescribed. The patient will follow up two weeks after the injection to assess response and call the clinic with any questions or concerns. The patient agrees with plan of care. Cain Rowley M.D. lkr Dictated: 12/17/2018 #[id number] Typed: 12/19/2018 #[id number] cc: Angeles Aburto M.D. Stas Olvera MD [facility] Comment on above: Result Comment: Elec tronically Signed By: Amrik WADE, Cain Perla\.br\Date and Time Signed: 12/24/18 13:15 EDT Message - General Officeon 0 12-23-2018 Message - General Office From: Sarah Laws To: [facility] Wirer Helper; Sent: 12/17/2018 13:40:24 EDT Subject: [place]-Medicare [employer]-CES-12/17/18 From: Thais Nieto ([facility] Wirer Helper) To: [facility] Clerical Inbox; Sent: 12/23/2018 13:33:03 EDT Subject: 2nd call Arleen Submitted prior auth online through [employer]. Medicare [employer] approved auth #[id number] good 12/23/18 to 03/23/19. Called patient to schedule C6/7 MAUREEN no anesthesia Dx M54.12, patients number has been changed or disconnected called Ag on patients HIPAA no answer unable to leave a message. From: Thais Nieto ([facility] Clerical Inbox) To: [facility] Clerical Inbox; Sent: 12/23/2018 14:32:36 EDT Subject: RE: 2nd call Arleen Patient called back, scheduled procedure for 12/30/18, scheduled follow up for 01/17/19 at 10:10am. [facility] Coding Summary.on 12-20-2018 Coding Summary. 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 However, the narrative phrase printed from the coding software may appear abbreviated, or result in slightly different terminology. Coded By: Linh Devlin CphT Date Saved: 12/20/2018 01:35 pm [facility] Coding Summary.on 12-03-2018 Coding Summary. CODING DATE: [facility] STATUS: Home (Routine DC) PAYOR: [...] Devlin CphT Date Saved: 12/03/2018 01:31 pm [facility] Consultation Noteon 12-04-19 Consultation Note HOSPITAL [...] bypass surgery in July 2015 at the [facility] and she does smoke. REVIEW OF SYSTEMS: [...] injection. Stas Olvera MD gls Dictated: 11/26/2018 #[id number] Typed: 12/03/2018 #[id number] cc: Angeles Rivers MD [facility] Comment on above: Result Comment: Elec tronically Signed By: Stas Olvera MD\.br\Date and Time Signed: 12/03/18 13:16 EDT History and Physicalon 12-11 HIM IP Note OR Cylinder Devalver Normal [facility] OPERATIVE REPORTon 8 OPERATIVE REPORT [address] [address] OPERATIVE REPORTPATIENT NAME: DAREK MEJÍA : 1950MED REC NO: [id number] ROOM:ACCOUNT NO: [id number] ADMIT DATE: 12/11/2017PROVIDER: Dustin PinedobsDATE OF PROCEDURE: 12/11/2017PREOPERATIVE DIAGNOSES:1. Reopened macular hole, [...] infollowup on 12/12/2017.DUSTIN MCMAHOND: 12/11/2017 11:14:16 CD/[id number]#: [id number] Doc#: [id number]: Normal [facility] Op Noteon 12-11-2017 HIM IP Note OR Cylinder Devalver [facility] History and Physicalon 10-23 HIM IP Note OR Cylinder Devalver [facility] OPERATIVE REPORTon 8 OPERATIVE REPORT [address] [address] OPERATIVE REPORTPATIENT NAME: DAREK MEJÍA : 1950MED REC NO: [id number] ROOM:ACCOUNT NO: [id number] ADMIT DATE: 10/23/2017PROVIDER: Dustin McmahonDATE OF PROCEDURE: [...] good condition with instructions on how to positionpostoperatively, sleeping with her left side down and facedown in a readingposition for 4 hours a day for the first 4 days postoperatively.DUSTIN PINEDOBSD: 10/23/2017 11:29:16 CD/[id number]#: [id number] Doc#: [id number]: Normal [facility] Op Noteon 10-23-2017 HIM IP Note OR Cylinder Devalver [facility] Progress Noteon 10-23-2017 HIM IP Note OR Cylinder Devalver [facility] HIM IP Note OR Cylinder Devalver [facility] No Panel Information [facility] Encounters Encounter Date Encounter Type Care Provider Facility Start: 07-29-2024 End: 07-29-2024 ambulatory [facility] Start: 02-19-2024 End: 02-19-2024 ambulatory [facility] Start: 12-18-2023 End: 12-18-2023 ambulatory [facility] Start: 10-31-2023 End: 10-31-2023 ambulatory [facility] Start: 10-26-2023 Telephone encounter Mary Lou Clinton 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 Facility: Start: 10-18-2022 Telephone encounter Pacc Lorai n 1 Work Phone: Pre Anesthesia Comment on above: Appointment Start: 08-30-2022 End: 08-31-[address] KAYLEIGH GAY . 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 Start: 03-31-2019 End: 04-03-2019 Patient encounter procedure OLGA PARISI [facility] Start: 12-11-2017 End: 12-11-2017 Ambulatory [facility] Start: 10-23-2017 End: 10-23-2017 Ambulatory [facility] Start: 09-28-2017 End: 09-29-2017 Ambulatory DEFAULT PHYSICIAN Facility:[facility] Procedures Date Procedure Procedure Detail Performing Clinician Start: 10-10-2023 EGD / COLONOSCOPY Ruthie Oneill [employer]OCK MECHANIC-STRANNER Work Phone: Start: 10-10-2023 Level i surg [...] NONA MCMAHON Start: 12-11-2017 CHLORIDE (POC) DUSTIN SALOME Start: 12-11-2017 CREATININE W/GFR POI NT OF CARE DUSTIN MCMAHON Start: 12-11-2017 LACTIC ACID,POINT OF CARE DUSTIN MCMAHON Start: 12-11-2017 POCT GLUCOSE DUSTIN RICH EVE Start: 12-11-2017 POTASSIUM (POC) DUSTIN MCMAHON Start: [...] DUSTIN MCMAHON Start: 10-23-2017 BEDREST DUSTIN RICH EVE Start: 10-23-2017 ENCOURAGE DEEP BREAT LEANDRO AND COUGHING DUSTIN MCMAHON Start: 10-23-2017 NOTIFY PHYSICIAN (SPECIFY) DUSTIN MCMAHON Start: 10-23-2017 NURSING COMMUNICATION Clair MCMAHON Start: 10-23-2017 VITAL SIGNS DUSTIN RICH EVE Start: 10-23-2017 POCT POTASSIUM DUSTIN PINEDOBS Start: 10-23-2017 POTASSIUM (POC) DUSTIN PINEDOBS Start: 10-23-2017 INITIATE OXYGEN THER APY PROTOCOL DUSTIN SALOME Start: 10-23-2017 NOTIFY PHYSICIAN (SPECIFY) DUSTIN MCMAHON Start: 10-23-2017 VITAL SIGNS DUSITN HILARIO EVE Plan of Treatment Date Care Activity Detail Author Start: 01-08-2025 LIPID SCREEN LIPID SCREEN [facility] Start: 08-15-2024 Adult BMI Screening Adult BMI Screening [facility] Start: 08-15-2024 Tobacco Screening Tobacco Screening [facility] Start: 05-04-2023 COVID-19 Vaccine () COVID-19 Vaccine () [facility] Start: 05-04-2023 Influenza vaccination Influenza Vaccine [facility] Start: 01-27-2023 DIABETES SCREEN DIABETES SCREEN [facility] Start: 09-03-2022 ADVANCE DIRECTIVE DISCUSSION ADVANCE DIRECTIVE DISCUSSION [facility] Start: 09-03-2022 DEPRESSION ASSESSMENT DEPRESSION ASSESSMENT [facility] Start: 05-04-2022 Influenza vaccination INFLUENZA (#1) [facility] Start: 09-13-2021 COVID-19 VACCINE (4 - Booster for Moderna series) COVID-19 VACCINE (4 - Booster for Moderna series) [facility] Start: 09-03-2021 ADVANCE DIRECTIVE DISCUSSION ADVANCE DIRECTIVE DISCUSSION [facility] Start: 09-03-2021 DEPRESSION ASSESSMENT DEPRESSION ASSESSMENT [facility] Start: 01-08-2021 Hepatitis B surface antibody level LDL CHOLESTEROL [facility] Start: 07-26-2016 PNEUMOCOCCAL: 65+ (2 - PCV) PNEUMOCOCCAL: 65+ (2 - PCV) [facility] Start: 2014 BONE DENSITY BONE DENSITY [facility] Start: 2014 Fall Risk Screening Fall Risk Screening [facility] Start: 1999 Administration of varicella zoster vaccine Zoster (Shingles) Vaccine (1 of 2) [facility] Start: 1999 SHINGRIX VACCINE (1 of 2) SHINGRIX VACCINE (1 of 2) [facility] Start: 1994 COLOGUARD (FIT-DNA) COLOGUARD (FIT-DNA) [facility] Start: 1994 Colonoscopy COLONOSCOPY [facility] Start: 1994 COLORECTAL CANCER SCREENING COLORECTAL CANCER SCREENING [facility] Start: [address] COLONOGRAPHY [facility] Start: 1994 FECAL OCCULT BLOOD FECAL OCCULT BLOOD [facility] Start: 1994 SIGMOIDOSCOPY SIGMOIDOSCOPY [facility] Start: 1989 Mammography MAMMOGRAM [facility] Start: 1979 Zoledronic acid therapy ALPHA-1 ANTITRYPSIN DEFICIENCY SCREENING [facility] Start: 1968 DTaP,Tdap and Td Vaccines (1 - Tdap) DTaP,Tdap and Td Vaccines (1 - Tdap) [facility] Start: 1968 Urine microalbumin profile DTAP,TDAP,TD (1 - Tdap) [facility] Start: 1967 Adult BMI Follow Up Plan Adult BMI Follow Up Plan [facility] Start: 1967 ANNUAL PCP TEAM CHRONIC DISEASE VISIT ANNUAL PCP TEAM CHRONIC DISEASE VISIT [facility] Start: 1967 BP CONTROLLED (<130/80) BP CONTROLLED (<130/80) [facility] Start: 1967 HEPATITIS C SCREENING HEPATITIS C SCREENING [facility] Start: 1967 SPIROMETRY SPIROMETRY [facility] Start: 1961 Depression Screening Depression Screening [facility] Start: 1950 Medicare Annual Wellness Visit Medicare Annual Wellness Visit [facility] Start: 1950 Tobacco Counseling Tobacco Counseling [facility] Immunizations Immunization Date Immunization Notes Care Provider Ike schneider 06-07-2022 unknown vaccine or immune globulin [facility] Work Phone: [facility] 05-25-2021 influenza, injectable,quadrivalent , preservative free, pediatric [facility] Work Phone: [facility] 05-25-2021 influenza virus vaccine, unspecified formulation Noami Bautista [facility] 09-18-2017 pneumococcal conjuga te vaccine, 13 valent [facility] Work Phone: [facility] 06-03-2017 influenza, seasonal, injectable [facility] Work Phone: [facility] 07-07-2016 influenza virus vaccine, unspecified formulation [facility] Work Phone: [facility] 06-14-2016 influenza, injectabl e, quadrivalent, preservative free [facility] Work Phone: [facility] 07-26-2015 influenza, high dose seasonal, preservative-free Aleksandar Castillo MD Work Phone: [facility] 07-26-2015 pneumococcal polysaccharide vaccine, 23 valent Aleksandar Castillo MD Work Phone: [facility] Payers Date Payer Category Payer Medicare [id number] 1960 Medicare [id number] 1960 Medicare [id number] 1950 Unknown [id number] 2.16.8 [id number] 1950 Unknown [id number] 2.16.8 [id number] 1950 Unknown [id number] 2.16.84 [id number] 1950 Unknown [id number] 2.16.84 [id number] 1950 Unknown [id number] 2.16.84 [id number] 1950 Unknown [id number] 2.16.84 [id number] 1950 Unknown [id number] 2.16.84 [id number] 1950 Unknown [id number] 2.16.84 [id number] 1950 Unknown [id number] 2.16.84 [id number] 1950 Unknown [id number] 2.16.84 [id number] Unknown Social History Date Type Detail Facility Start: 03-22-2021 End: 08-15-2023 Tobacco smoking status NHIS Smokes tobacco daily [facility] Start: 09-03-1962 History of tobacco use Cigarette Smo ker [facility] Start: 10-14-2020 End: 03-22-2021 Cigarettes smoked current (pack per day) - Reported 0.5 [facility] Start: 03-22-2021 End: 08-15-2023 Tobacco use and exposure Smokeless tobacco non-user [facility] Start: 08-15-2022 End: 08-15-2023 Alcohol intake Current drinker of alcohol (finding) [facility] Start: 03-22-2021 Alcohol Comment rare/social [facility] Start: 1950 Sex Assigned At Not on file C [facility] Start: 10-14-2020 End: 08-15-2023 Tobacco use panel [facility] Childcare Unknown [facility] Start: 04-15-2018 Alcohol Comment SOMETIMES [facility] Medical Equipment Procedure Code Equipment Code Equipment Origin al Text Equipment Identifier Dates Graft Gelweave 3 0mm Straight Gelatin Polyester Woven 30cm Cardiovascular - [id number] Start: 01-10-2020 [place] Cv 4x.5in Thk1.65mm Ptfe - [id number] Start: 07-20-2015 [place] Thk1.65mm P tfe [id number] Cardiovascular Patch Sterile - [id number] Start: 01-10-2020 Lens Iol 0d +21. 5 [place] Uv Abs - [id number] Start: 04-13-2021 Comment on above: Description: -0.47 Patch Thk.5mm Esteban vine Pericardial [id number] Cardiovascular Resilience Durable - [id number] Start: 01-10-2020 Valve Aort 23mm Crp-Ed Thfx - [id number] Start: 01-10-2020 Clinical Notes 01-09-2020 to 07-29-2024 Telephone Encounter - Mary Lou Clinton, [facility] - 10/26/2023 9:54 AM ESTTelephone Encounter - Mary Lou Clinton, [facility] - 10/26/2023 9:54 AM Elvin Dodd, [facility] - 10/30/2022 3:19 PM EST Note Date & Type Note Facility 07-29-2024 Note [facility] Consult Note Reason for visit: Afib 07/29/24 Patient has come for follow-up and today for an heart rate is elevated at 101 bpm. EKG showed evidence of what appears to be sinus tachycardia versus atrial flutter with 2:1 conduction as one of the P waves is not clearly evident. She is currently on amiodarone and not on any beta-blockers. She does not feel any different and is not endorsing these palpitations. 02/19/24 Patient here for follow up echo after starting amiodarone. Still denies chest pain, palpitations, lightheadedness/syncope, and bleeding on Eliquis. ANGEL has not worsened since starting amiodarone. EKG: Junctional karely with underling LBBB at 38bpm. on ambulation heart rate did improve from 30-45 beats a minute HPI: Darek Mejía is a 74 y.o. year old with past medical history [...] Determinants of Health Tobacco Use: High Risk (07/29/2024) Patient History Smoking Tobacco Use: Every Day [...] Intimate Partner Violence: Not At Risk (07/19/2023) [place] Safety [place] Fear of Current or [...] Last Year: No Utilities: Not on file Health Literacy: Not on file Allergies: Allergies Allergen Reactions [...] Nausea And Vomiting Severe head ache Weight: 57.2kg Visit Vitals BP 142/87 (BP Location: Left arm, Patient Position: Sitting, BP Cuff Size: Adult) Pulse 104 Resp 12 Ht 1.702 m (5' 7 ) Wt 57.2 kg (126 lb) SpO2 93% BMI 19.73 kg/m??? Smoking Status Every Day BSA 1.64 m??? Meds: Current Outpatient Medications on File Prior to Visit Medication Sig Dispense Refill amiodarone (Pacerone) 100 mg tablet Take 1 tablet (100 mg) by mouth in the morning. This is a decrease 90 tablet 3 apixaban (Eliquis) 5 mg tablet Take 1 tablet (5 mg) by mouth in the morning and at bedtime. 60 tablet 11 aspirin 81 mg chewable tablet CHEW AND SWALLO (more content not included)... [facility] 02-19-2024 Note [facility] Consult Note Reason for visit: Afib 02/19/24 Patient here for follow up echo after starting amiodarone. Still denies chest pain, palpitations, lightheadedness/syncope, and bleeding on Eliquis. ANGEL has not worsened since starting amiodarone. EKG: Junctional karely with underling LBBB at 38bpm. on ambulation heart rate did improve from 30-45 beats a minute HPI: Darek Mejía is a 73 y.o. [...] Intimate Partner Violence: Not At Risk (07/19/2023) [place] Fear of Current or [...] Nausea And Vomiting Severe head ache Weight: 53.5kg Visit Vitals BP 176/90 (BP Location: Right arm, Patient Position: Sitting) Pulse (!) 38 Ht 1.702 m (5' 7 ) Wt 53.5 kg (118 lb) SpO2 97% BMI 18.48 kg/m??? Smoking Status Every Day BSA 1.59 m??? Meds: Current Outpatient Medications on File Prior to Visit Medication Sig Dispense Refill amiodarone (Pacerone) 200 mg tablet Take 1 tablet (200 mg) by mouth in the morning. 90 tablet 3 apixaban (Eliquis) 5 mg tablet Take 1 [...] 30 tablet 11 furosemide (Lasix) 20 mg t (more content not included)... [facility] 12-18-2023 Note [facility] Consult Note Reason [...] Intimate Partner Violence: Not At Risk (07/19/2023) [place] Safety & Environment Fear of Current or [...] SL tablet Sublingu (more content not included)... [facility] 10-31-2023 Note [facility] Cardiology Clinic Note Chief Complaint: Patient here for follow up labs and echo performed on 10/29/2023. Dr. Hoy increased potassium to daily, from every other [...] does not a (more content not included)... [facility] 10-26-2023 Miscellaneous Notes ----- Message from Rylan [...] Thanks, Dr. Hernandez [facility]23 Telephone encounter Note ----- Message from [...] follow up p.r.n. with me. ThanksDr. Hernandez [facility] 08-01-2023 Note [facility] Cardiology Clinic Note Chief Complaint: Patient here for follow up [facility]. Underwent heart cath and AMITA on 07/20 [...] Severe obstructive karley (more content not included)... [facility] 10-30-2022 History of Present illness Narrative CONFIRM AIM PLANO LEFT EYE. XIOMARA Farmer documented in this encounter [facility] 10-18-2022 Miscellaneous Notes Called and spoke with [...] 2022 1:18 PM documented in this encounter [facility] 08-15-2022 History of Present illness [...] and surgery - Comanage with Dr Mccollum; [facility] POD #1 Cataract Presurgical Documentation Cataract: [...] patient was offered a surgery/procedure at a [facility]. The surgeon/proceduralist and patient have discussed [...] patient was offered a surgery/procedure at a [facility] facility. The surgeon/proceduralist and patient have discussed [...] form. -F/U [address] Mccollum ([facility]) The documentation recorded by the scribe accurately [...] 2022 3:07 PM documented in this encounter [facility] 01-09-2020 History of Past i llness Narrative [...] Dental: N/A PFT's: N/A ( per [facility] surgery scheduler - Per Dr. Bernal okay to [...] of this encounter (statuses as of 08/15/2022) [facility]05-08-2020 History of Past illness Narrative* Problem Noted [...] Dental: N/A PFT's: N/A ( per [facility] surgery scheduler - Per Dr. Dolores okay to proceed without PFT. Patient will [...] of this encounter (statuses as of 08/16/2022) [facility] History of Past illness Narrative* Problem Noted [...] Dental: N/A PFT's: N/A ( per [facility] surgery scheduler - Per Dr. Bernal okay to [...] of this encounter (statuses as of 10/18/2022) [facility]2020 History of Past illness Narrative* Problem Noted [...] Dental: N/A PFT's: N/A ( per [facility] surgery scheduler - Per Dr. Bernal okay to [...] of this encounter (statuses as of 10/31/2022) [facility] note* Diagnosis PCO (posterior capsular opacification), right- Primary After-cataract, unspecified Pseudophakia, right eye Lens replaced by other means Combined forms of age-related cataract of left eye Other and combined forms of senile cataract Full thickness macular hole, right documented in this encounter [facility] note* Diagnosis Combined forms of age-related cataract of left eye- Primary Other and combined forms of senile cataract documented in this encounter [facility] note* Diagnosis Combined forms of age-related cataract of left eye- Primary Other and combined forms of senile cataract Combined forms of age-related cataract of left eye Other and combined forms of senile cataract documented in this encounter [facility] note* Diagnosis 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 Family history of colon cancer Family history of malignant neoplasm of gastrointestinal tract [facility] filed[facility]ed in this [facility]ructionsNot on filedocumented in this encounter [facility]ructionsNot on filedocumented in this encounter [facility] Summary Purpose Family History No Family History Records FoundNo Family History Records FoundNo Family History Records FoundNo Family History Records FoundNo Family History Records FoundNo Family History Records FoundNo Family History Records Found Advance Directives No Advanced Directives Records FoundDocuments on File Type Date Recorded 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 Advance Directive(s) 01/16/2020 9:56 PM [...] list: All Problems Smoker / SNOMED CT [id number] / Confirmed Added secondary to documentation in [...] section and content) DATE CREATED AUTHOR 02/21/2018 [facility] DATE CREATED AUTHOR AUTHOR'S ORGANIZ ATION 02/25/2018 [facility] DATE CREATED AUTHOR AUTHOR'S ORGANIZ ATION 04/19/2019 [facility] DATE CREATED AUTHOR AUTHOR'S ORGANIZ ATION 08/22/2019 [facility] DATE CREATED AUTHOR AUTHOR'S ORGANIZ ATION 12/09/2022 [facility] DATE CREATED AUTHOR AUTHOR'S ORGANIZ ATION 02/02/2024 [facility] DATE CREATED AUTHOR AUTHOR'S ORGANIZ ATION 07/31/2024 [facility] Source Comments (unrecognize d section and content) In the event this informatio n is protected by the Federal Confidentiality of Alcohol and Drug Abuse Patient Records regulations: The Federal rules restrict any use of the information to criminally investigate or prosecute any alcohol or drug abuse patient.[facility] the event this information is protected by the Federal Confidentiality of Alcohol and Drug Abuse Patient Records regulations: The Federal rules restrict any use of the information to criminally investigate or prosecute any alcohol or drug abuse patient.[facility] Medical CenterIn the event this information is protected by the Federal Confidentiality of Alcohol and Drug Abuse Patient Records regulations: The Federal rules restrict any use of the information to criminally investigate or prosecute any alcohol or drug abuse patient.[facility] the event this information is protected by the Federal Confidentiality of Alcohol and Drug Abuse Patient Records regulations: The Federal rules restrict any use of the information to criminally investigate or prosecute any alcohol or drug abuse patient.[facility] Reason for Visit (unrecogniz ed section and content) Reason Comments Cataract Evaluation Left eye Posterior Capsule Opacification Evaluati on Right eye Specialty Diagnoses / Procedures Referred By Arben rosario Referred To Contact OPHTHALMOLOGY Diagnoses Combined forms of age-related cataract, bilateral Laser Yag Procedures POST-CATARACT LASER SURGERY Darian Coy OD [address] [place] [id number] [facility] [place] [address] Referral ID Status Reason Start Date Expiration Date Visits Re quested Visits Authorized [id number] Closed 03/21/2022 09/27/2022 1 1 Reason Comments Appointment Reason Comments Pre-Op Exam Care Teams (unrecognized sec tion and content) Communication Spec Relationship Specialty Start Date End Date Kayleigh Gay MD PCP - General Family Medicine 06/17/15 Kayleigh Gay MD Family Medicine 06/17/15 Communication Spec Relationship Specialty Start Date End Date Kayleigh Gay MD PCP - General Family Medicine 06/17/15 Kayleigh Gay MD Family Medicine 06/17/15 Communication Spec Relationship Specialty Start Date End Date Kayleigh Gay MD PCP - General Family Medicine 06/17/15 Kayleigh Gay MD Family Medicine 06/17/15 Communication Spec Relationship Specialty Start Date End Date Kayleigh Gay MD PCP - General Family Medicine 06/17/15 Kayleigh Gay MD Family Medicine 06/17/15 Communication Spec Relationship Specialty Start Date End Date Kayleigh Gay MD [address] [place] [id number] PCP - General 04/15/18 Communication Spec Relationship Specialty [place] [address] [place] [id number] PCP - General 04/15/18 FOR RECORDS PERTAINING [...] BE BASED ON THE PRIMARY CLINICAL RECORDS. [facility] [email or web address] [facility]. provides no warranty or guarantee of the accuracy or completeness of information in this document.
== END 2024-08-18 10:10 | disposition home or self-care (01) ==
LOC: EC 10:10
PROVIDERS: PCP Family Medicine; Visit Provider Orthopaedic Surgery
DX: S42.254D Nondisplaced fracture of greater tuberosity of right humerus, subsequent encounter for fracture with routine healing (principal)
CPT/HCPCS: 73030